=== PATIENT | female | born 1960 | race Caucasian/White ===

== ENCOUNTER 2021-01-26 07:26 | Outpatient (REF) | payer OTHER, SELFPAY ==
--- NOTE | ~2021-01-26 | XR_ITS ---
EXAMINATION: XR AP BILATERAL KNEES STANDING. LEFT KNEE 2 VIEWS CLINICAL INFORMATION: Pain left knee. COMPARISON: Left knee 09/13/2019. TECHNIQUE: AP bilateral knees standing. Left knee 2 views. FINDINGS: AP BILATERAL KNEE: There is mild reduction in the medial compartment joint space both knees. There is no visible acute fracture or dislocation or loose body seen. The soft tissues are normal. LEFT KNEE: The patellofemoral compartment joint space is reduced with periapical spurring. No abnormal suprapatellar joint effusion, loose bodies or bony erosive changes seen. XR/XR knee standing BI IMPRESSION: Mild degenerative arthritic changes medial and patellofemoral compartment left knee. No visible acute fracture, dislocation or subluxation seen.
--- NOTE | ~2021-01-26 | XR_ITS ---
EXAMINATION: XR AP BILATERAL KNEES STANDING. LEFT KNEE 2 VIEWS CLINICAL INFORMATION: Pain left knee. COMPARISON: Left knee 09/13/2019. TECHNIQUE: AP bilateral knees standing. Left knee 2 views. FINDINGS: AP BILATERAL KNEE: There is mild reduction in the medial compartment joint space both knees. There is no visible acute fracture or dislocation or loose body seen. The soft tissues are normal. LEFT KNEE: The patellofemoral compartment joint space is reduced with periapical spurring. No abnormal suprapatellar joint effusion, loose bodies or bony erosive changes seen. XR/XR knee LT 2V IMPRESSION: Mild degenerative arthritic changes medial and patellofemoral compartment left knee. No visible acute fracture, dislocation or subluxation seen.
[2021-01-26 09:47] LABS: MANUAL DIFF FLAG NO
[2021-01-26 09:53] LABS: Basophils Absolute Auto 0.1 X10*3/uL (0.0-0.2); Eosinophils Absolute Auto 0.2 X10*3/uL (0.0-0.4); Eosinophils Percent Auto 3.8 % (0-4); Hematocrit 34.8 % (37-47); Hemoglobin 11.4 g/dl (12.0-16.0); Imm Gran Abs Auto 0.01 X10*3/uL (0.00-0.03); Imm Gran Pct Auto 0.2 % (0.0-0.4); Immature Retic Fraction 8.3 % (3.0-15.9); Mean Corpuscular HGB Conc 32.8 g/dl (31.0-35.0); Mean Corpuscular Hemoglobin 33.3 pg (27.0-33.0); Mean Corpuscular Volume 101.8 fL (80-98); Mean Platelet Volume 10.4 fL (9.4-12.3); Monocytes Absolute Auto 0.4 X10*3/uL (0.1-1.2); Monocytes Percent Auto 8.9 % (2-11); Neutrophils Absolute Auto 3.3 X10*3/uL (2.0-8.3); Neutrophils Percent Auto 66.1 % (45-73); Platelet Count 274 X10*3/uL (160-400); Red Blood Count 3.42 X10*6/uL (4.20-5.50); Red Cell Distribution Width 14.4 % (11.0-16.0); Retic HGB Equivalent 37.4 pg (30.0-35.0); Reticulocyte Percent 1.9 % (0.5-1.8); Reticulocytes Absolute 0.066 X10*6/uL (0.026-0.095)
[2021-01-26 10:02] LABS: Glucose Urine UA NEG (NEG); Leukocyte Esterase Urine 2+ (NEG); Nitrite Urine NEG (NEG); PH 6.5 (5.0-8.0); Urine Blood TRACE (NEG); Urine Ketones NEG (NEG); Urine Protein NEG (NEG-TRACE)
[2021-01-26 10:10] LABS: Appearance Urine CLEAR; Color Urine STRAW
[2021-01-26 10:17] LABS: Alanine Aminotransferase 14 U/L (0-31); Albumin Level 4.1 g/dL (3.5-5.0); Alkaline Phosphatase 78 U/L (39-117); Anion Gap 13 (12-20); Aspartate Amino Transferase 15 U/L (5-31); Bilirubin Total 0.6 mg/dL (0.0-1.0); Blood Urea Nitrogen 6 mg/dL (9-16); Calcium 9.1 mg/dL (8.4-10.2); Carbon Dioxide 28 mmol/L (22-29); Chloride 103 mmol/L (96-108); Cholesterol 183 mg/dL; Estimated Glomerular Filt Rate > 60; Glucose Random 87 mg/dL (60-115); HDL Cholesterol 59 mg/dL; Iron 56 mcg/dL (30-160); LDL Cholesterol Calculated 106 mg/dl; Percent Iron Saturation 17 % (15-50); Potassium 4.8 mmol/L (3.3-5.1); Sodium 139 mmol/L (135-145); Total Iron Binding Capacity 325 mcg/dL (228-428); Total Protein 6.5 g/dL (6.5-8.0); Triglycerides 91 mg/dL; Unsaturated Iron Binding 269 ug/dL
[2021-01-26 10:21] LABS: Bacteria Urine 1+ /LPF; RBC Urine 0-2 /HPF (0); Squamous Epithelial Cell Urine 3+ /LPF; WBC Urine 30-49 /HPF (0-4)
[2021-01-26 10:37] LABS: Ferritin 38 ng/mL (10-250); Free T4 (Free Thyroxine) 1.09 ng/dL (0.71-1.85); Thyroid Stimulating Hormone 2.05 uIU/mL (0.32-4.0); Vitamin D 25-OH Total 42.3 ng/mL (>30)
[2021-01-26 10:46] LABS: Folate 17.8 ng/mL (> or = 4.0); Vitamin B12 1584 pg/mL (200-900)
== END 2021-01-26 07:27 | disposition home or self-care (01) ==
LOC: HO.HOSX 07:26
PROVIDERS: Absent Provider Internal Medicine; PCP Internal Medicine; Visit Provider Orthopaedic Surgery
DX: E78.00 Pure hypercholesterolemia, unspecified (principal); E03.9 Hypothyroidism, unspecified; M17.12 Unilateral primary osteoarthritis, left knee; Z98.890 Other specified postprocedural states; Z72.0 Tobacco use
CPT/HCPCS: 36415; 73560; 73565; 80053; 80061; 81001; 82306; 82607; 82728; 82746; 83540; 84439; 84443; 85025; 85045; 99212

== ENCOUNTER 2021-03-10 06:18 | Outpatient (REF) | payer OTHER, SELFPAY ==
--- NOTE | ~2021-03-10 | FL_ITS ---
EXAMINATION: XR FLUOROSCOPY WITH IMAGES CLINICAL INFORMATION: Left knee arthritis COMPARISON: None. TECHNIQUE: Fluoroscopy performed by Namrata Cosby NP. Fluoroscopy time: 0.1 minutes DAP: 1.2 Gycm2 Images: 1 FINDINGS: Single lateral view of the left knee demonstrates 2 needles projecting over the anterior distal femoral shaft and anterior proximal tibial shaft. FL/FL guidance in treatment room IMPRESSION: Fluoroscopy guidance for left knee injection.
== END 2021-03-10 06:19 | disposition home or self-care (01) ==
LOC: HO.RADIR 06:18
PROVIDERS: Visit Provider Anesthesiology
DX: M17.12 Unilateral primary osteoarthritis, left knee (principal)
CPT/HCPCS: 64454

== ENCOUNTER 2021-03-13 17:21 | Outpatient (REF) | payer OTHER, SELFPAY ==
[2021-03-14 11:12] LABS: BV Int Neg Control Negative (Negative); BV Int Pos Control Positive (Positive)
[2021-03-20 12:36] LABS: HPV mRNA E6/E7 rflx Not Detected (Not Detected)
== END 2021-03-13 17:22 | disposition home or self-care (01) ==
LOC: HO.LNP 17:21
PROVIDERS: Visit Provider Internal Medicine
DX: Z12.4 Encounter for screening for malignant neoplasm of cervix (principal); Z11.51 Encounter for screening for human papillomavirus (HPV)
CPT/HCPCS: 87480; 87510; 87624; 87660; 88142

== ENCOUNTER 2021-03-16 11:06 | Outpatient (REF) | payer OTHER, SELFPAY | END 2021-03-16 11:07 | disposition home or self-care (01) | LOC: HO.LAB 11:06 | PROVIDERS: Visit Provider Internal Medicine | DX: Z13.89 Encounter for screening for other disorder (principal) ==

== ENCOUNTER → 2021-03-18 11:25 | Outpatient (BNVA) | payer OTHER, SELFPAY | PROVIDERS: PCP Internal Medicine; Visit Provider Anesthesiology | DX: G90.522 Complex regional pain syndrome I of left lower limb (principal) | CPT/HCPCS: 99202 ==

== ENCOUNTER → 2021-04-01 10:53 | Outpatient (BNVA) | payer OTHER, SELFPAY | PROVIDERS: PCP Internal Medicine; Visit Provider Anesthesiology | DX: G90.522 Complex regional pain syndrome I of left lower limb (principal); Z79.899 Other long term (current) drug therapy | CPT/HCPCS: 99212 ==

== ENCOUNTER 2021-06-16 06:06 | Outpatient (REF) | payer OTHER, SELFPAY ==
--- NOTE | ~2021-06-16 | FL_ITS ---
EXAMINATION: XR FLUOROSCOPY WITH IMAGES CLINICAL INFORMATION: M96.1 - Postlaminectomy syndrome, not elsewhere classified COMPARISON: MR lumbar spine 09/01/2019 TECHNIQUE: Fluoroscopy performed by Namrata Cosby NP. Fluoroscopy time: 10.9 minutes DAP: 43.4 Gycm2 Images: 2 FINDINGS: There are 2 spinal stimulator leads seen overlying the posterior lower thoracic spinal canal. Electrode tips are approximate level of T8-T9 disc space. FL/FL guidance in treatment room IMPRESSION: Fluoroscopy for pain management procedure.
== END 2021-06-16 06:07 | disposition home or self-care (01) ==
LOC: HO.RADIR 06:06
PROVIDERS: Visit Provider Anesthesiology
DX: G90.522 Complex regional pain syndrome I of left lower limb (principal); M96.1 Postlaminectomy syndrome, not elsewhere classified
CPT/HCPCS: 63650; C1778

== ENCOUNTER → 2021-06-16 12:16 | Day surgery (SDC) | payer OTHER, SELFPAY | PROVIDERS: PCP Internal Medicine; Visit Provider Anesthesiology | DX: G90.522 Complex regional pain syndrome I of left lower limb (principal); M96.1 Postlaminectomy syndrome, not elsewhere classified; Z53.8 Procedure and treatment not carried out for other reasons | CPT/HCPCS: C1778 ==

== ENCOUNTER → 2021-06-22 15:31 | Outpatient (BNVA) | payer OTHER, SELFPAY | PROVIDERS: PCP Internal Medicine; Visit Provider Anesthesiology | DX: M96.1 Postlaminectomy syndrome, not elsewhere classified (principal) | CPT/HCPCS: 99212 ==

== ENCOUNTER 2021-06-24 13:54 | Outpatient (REF) | payer MEDICAID, SELFPAY ==
[2021-06-25 05:48] LABS: CT PCR NOT DETECTED (Not Detect.); NG PCR NOT DETECTED (Not Detect.)
== END 2021-06-24 13:55 | disposition home or self-care (01) ==
LOC: HO.LNP 13:54
PROVIDERS: Visit Provider Internal Medicine
DX: Z11.3 Encounter for screening for infections with a predominantly sexual mode of transmission (principal)
CPT/HCPCS: 87491; 87591

== ENCOUNTER 2021-07-09 12:06 | Outpatient (REF) | payer OTHER, SELFPAY ==
--- NOTE | ~2021-07-09 | XR_ITS ---
EXAMINATION: XR LUMBOSACRAL SPINE CLINICAL INFORMATION: M96.1 - Postlaminectomy syndrome, not elsewhere classified COMPARISON: Radiographs lumbar spine 03/08/2019 TECHNIQUE: Three views of the lumbosacral spine. FINDINGS: There is normal lumbar segmentation with 5 nonrib-bearing lumbar vertebrae of normal height. There are postsurgical changes consistent with posterior fusion L3-L5 with bilateral pedicle screws and shiva and disc space. L4-L5. The hardware is intact. There is no vertebral compression or destructive process or osteolysis. Borderline retrolisthesis L4-L5 is stable from preoperative radiographs 2018. There is no interval disc narrowing or erosive changes. The SI joints and visualized sacrum are unremarkable. XR/XR lumbar spine 2-3V IMPRESSION: 1. Status post posterior fusion L3-L5. Hardware intact. 2. No vertebral compression, destructive process, or interval disc narrowing.
== END 2021-07-09 12:07 | disposition home or self-care (01) ==
LOC: HO.XRAY 12:06
PROVIDERS: PCP Internal Medicine; Visit Provider Anesthesiology
DX: M96.1 Postlaminectomy syndrome, not elsewhere classified (principal)
CPT/HCPCS: 72100

== ENCOUNTER → 2021-07-22 13:39 | Outpatient (BNVA) | payer OTHER, SELFPAY | PROVIDERS: PCP Internal Medicine; Visit Provider Anesthesiology ==

== ENCOUNTER → 2021-08-28 13:35 | Outpatient (BNVA) | payer OTHER, SELFPAY | PROVIDERS: Visit Provider Internal Medicine | DX: G89.4 Chronic pain syndrome (principal); M25.562 Pain in left knee; M17.12 Unilateral primary osteoarthritis, left knee; M96.1 Postlaminectomy syndrome, not elsewhere classified; E03.9 Hypothyroidism, unspecified; F11.99 Opioid use, unspecified with unspecified opioid-induced disorder; F13.20 Sedative, hypnotic or anxiolytic dependence, uncomplicated; Z72.89 Other problems related to lifestyle; F12.20 Cannabis dependence, uncomplicated; F17.210 Nicotine dependence, cigarettes, uncomplicated; Z51.81 Encounter for therapeutic drug level monitoring | CPT/HCPCS: 80305; 99202 ==

== ENCOUNTER → 2021-09-03 14:40 | Outpatient (BNVA) | payer OTHER, SELFPAY | PROVIDERS: PCP Internal Medicine; Visit Provider Family Medicine Adult Medicine | DX: M96.1 Postlaminectomy syndrome, not elsewhere classified (principal); R20.2 Paresthesia of skin; G89.4 Chronic pain syndrome | CPT/HCPCS: 99202 ==

== ENCOUNTER → 2021-09-10 13:29 | Outpatient (BNVA) | payer OTHER, SELFPAY | PROVIDERS: PCP Internal Medicine; Visit Provider Family Medicine Adult Medicine | DX: M96.1 Postlaminectomy syndrome, not elsewhere classified (principal); G89.4 Chronic pain syndrome; R20.2 Paresthesia of skin | CPT/HCPCS: 99212 ==

== ENCOUNTER 2021-10-06 06:32 | Outpatient (REF) | payer OTHER, SELFPAY ==
--- NOTE | ~2021-10-06 | FL_ITS ---
EXAMINATION: XR FLUOROSCOPY WITH IMAGES CLINICAL INFORMATION: M96.1 - Postlaminectomy syndrome, not elsewhere classified COMPARISON: Radiographs lumbar spine 07/09/2021 TECHNIQUE: Fluoroscopy performed by pain management physician. Fluoroscopy time: 0.1 minutes DAP: 1.85 Gycm2 Images: 2 FINDINGS: There is spinal needle at the L2 interlaminar space. Hardware is again noted lower lumbar spine consistent with the prior fusion. FL/FL guidance in treatment room IMPRESSION: Fluoroscopy for pain management procedure.
== END 2021-10-06 06:33 | disposition home or self-care (01) ==
LOC: HO.RADIR 06:32
PROVIDERS: Visit Provider Anesthesiology
DX: M96.1 Postlaminectomy syndrome, not elsewhere classified (principal); G90.522 Complex regional pain syndrome I of left lower limb
CPT/HCPCS: 62323; J1170; Q9967

== ENCOUNTER → 2021-10-07 16:25 | Outpatient (BNVA) | payer OTHER, SELFPAY | PROVIDERS: Visit Provider Anesthesiology ==

== ENCOUNTER → 2021-10-12 15:53 | Outpatient (BNVA) | payer OTHER, SELFPAY | PROVIDERS: PCP Internal Medicine; Visit Provider Anesthesiology | DX: M96.1 Postlaminectomy syndrome, not elsewhere classified (principal); G90.522 Complex regional pain syndrome I of left lower limb | CPT/HCPCS: 99212 ==

== ENCOUNTER → 2021-12-24 09:54 | Day surgery (SDC) | payer MEDICAID, SELFPAY ==
[2021-12-15 13:32] VITALS: BMI 27.6
--- NOTE | 2021-12-23 10:17 | P.CONAN_ITS ---
Documented by User: Bibi Cary NP 12/23/21 10:27 HPI - Anesthesia Eval Consult details Narrative: 61yo F for Intrathecal Drug Delivery Implant PMFSH Active Problems Active Problems: All Active Problems (Updated 12/11/21 @ 15:26 by Hayden Man MD) Anemia (Acute) Peripheral neuropathy (Acute) Cervical cancer screening (Acute) Bacterial vaginosis (Acute) Generalized anxiety disorder (Acute) Breast cancer screening by mammogram (Acute) Left leg paresthesias (Acute) Opioid use disorder (Acute) Chronic pain syndrome (Acute) Postlaminectomy syndrome (Acute) Complex regional pain syndrome i of left lower limb (Acute) Renal lesion (Acute) Primary osteoarthritis of left knee (Acute) Tobacco abuse (Acute) H/O lumbar discectomy (Acute) Anxiety (Acute) Hypothyroidism (Acute) Past Medical History Medical History Anxiety Cervical disc herniation Chronic pain syndrome Closed left ankle fracture Complex regional pain syndrome i of left lower limb Hypothyroidism Left leg paresthesias Opioid use disorder Postlaminectomy syndrome Primary osteoarthritis of left knee Renal lesion Tobacco abuse Family History Family History Father No problems noted. Mother Stroke Paternal Aunt Breast cancer Surgical History Surgical History H/O colonoscopy H/O lumbar discectomy History of left knee surgery Hx of cervical discectomy Left ACL tear Spinal stenosis Social History Social History Housing: House Are you a primary primary care coordinator to a significant other at home: No Do you presently have visiting nurse or other home services: No Alcohol intake: current Alcohol intake frequency: holidays/special occasions only Alcohol type: wine Patient Tobacco Use Status: Current everyday Tobacco user Tobacco use type: Cigarette Cigarettes Per Day: 7 Years Smoked: 30 e-Cigarette/Vaping Use: Never Used Second Hand Smoke Exposure: Yes Use of substances other than those prescribed or required for medical reasons: No Have you been hit, kicked, punched, or otherwise hurt by someone within the past year? If so, by whom?: No Are you DNR?: No Advance Directives Information Provided: Yes (brochure mailed) Advance Directives on File: No Recently lost weight without trying: No Eating poorly because of decreased appetite: No Nutrition Risks: No Nutritional Risk Poor oral hygiene: No service: No Current occupational status: unemployed Meds Allergies Allergy/AdvReac Type Severity Reaction Status Date / Time No Known Allergies Allergy Verified 12/11/21 14:37 [No Known Allergies*] Home Medications Medication Instructions Recorded Confirmed Last Taken Type ferrous sulfate 325 mg (65 mg 325 mg PO DAILY 12/30/20 12/15/21 Unknown History iron) tablet (FeroSul) magnesium oxide 400 mg PO DAILY 12/30/20 12/15/21 Unknown History multivitamin 1 tab PO DAILY 12/11/21 12/15/21 Unknown History Exam Exam Date and Time: December 23, 2021 1017 Height,Weight and Vital Signs: Height 5 ft 4 in Weight 73.028 kg Assessment and Plan Assessment Anesthesia Assessment: Chart Reviewed Documented by User: Ameena Potter MD 12/24/21 10:58 PMFSH Past Medical History Medical History Anxiety Cervical disc herniation Chronic pain syndrome Closed left ankle fracture Complex regional pain syndrome i of left lower limb Hypothyroidism Left leg paresthesias Opioid use disorder Postlaminectomy syndrome Primary osteoarthritis of left knee Renal lesion Tobacco abuse Family History Family History Father No problems noted. Mother Stroke Paternal Aunt Breast cancer Surgical History Surgical History H/O colonoscopy H/O lumbar discectomy History of left knee surgery Hx of cervical discectomy Left ACL tear Spinal stenosis History of Problems with Anesthesia: No Social History Social History Housing: House Are you a primary primary care coordinator to a significant other at home: No Do you presently have visiting nurse or other home services: No Alcohol intake: current Alcohol intake frequency: holidays/special occasions only Alcohol type: wine Patient Tobacco Use Status: Current everyday Tobacco user Tobacco use type: Cigarette Cigarettes Per Day: 7 Years Smoked: 30 e-Cigarette/Vaping Use: Never Used Second Hand Smoke Exposure: Yes Use of substances other than those prescribed or required for medical reasons: No Have you been hit, kicked, punched, or otherwise hurt by someone within the past year? If so, by whom?: No Are you DNR?: No Advance Directives Information Provided: Yes (brochure mailed) Advance Directives on File: No Recently lost weight without trying: No Eating poorly because of decreased appetite: No Nutrition Risks: No Nutritional Risk Poor oral hygiene: No service: No Current occupational status: unemployed Meds Allergies Allergy/AdvReac Type Severity Reaction Status Date / Time No Known Allergies Allergy Verified 12/11/21 14:37 [No Known Allergies*] Home Medications Medication Instructions Recorded Confirmed Last Taken Type ferrous sulfate 325 mg (65 mg 325 mg PO DAILY 12/30/20 12/15/21 Unknown History iron) tablet (FeroSul) magnesium oxide 400 mg PO DAILY 12/30/20 12/15/21 Unknown History multivitamin 1 tab PO DAILY 12/11/21 12/15/21 Unknown History Exam Airway Mallampati Class: II TM Dist: >3cm Neck ROM: Full Loose/Missing/Broken Teeth: No Heart: RRR Lungs: CTA Assessment and Plan Assessment Anesthesia Assessment: Anesthesia Plan Discussed Final Anesthetic Review History of Problems with Anesthesia: No NPO: Yes ASA Class: II Final Preanesthetic Review: Meds/Allgs Chart Reviewed, Consent Obtained/Reviewed and Anes Risks/Benef Reviewed Patient Risk: Low Procedure Risk: Low Anesthetic Plan Anesthetic Plan: GA Disposition: Standard PACU
[2021-12-24 09:53] LABS: MANUAL DIFF FLAG NO
[2021-12-24 10:21] VITALS: BP 101/61; PULSE 71; RESP 16; TEMP 36.2; O2SAT 98
[2021-12-24] MEDS: Lactated Ringers 1,000 ML 100 ML IVCONT (10:40)
[2021-12-24 10:48] LABS: Basophils Absolute Auto 0.1 X10*3/uL (0.0-0.2); Basophils Percent Auto 0.9 % (0-2); Eosinophils Absolute Auto 0.2 X10*3/uL (0.0-0.4); Eosinophils Percent Auto 3.1 % (0-4); Hematocrit 38.9 % (37.0-47.0); Hemoglobin 12.7 g/dl (12.0-16.0); Imm Gran Abs Auto 0.01 X10*3/uL (0.00-0.03); Imm Gran Pct Auto 0.2 % (0.0-0.4); Immature Retic Fraction 4.3 % (3.0-15.9); Lymphocytes Absolute Auto 1.1 X10*3/uL (1.2-4.9); Lymphocytes Percent Auto 20.1 % (20-40); Mean Corpuscular HGB Conc 32.6 g/dl (31.0-35.0); Mean Corpuscular Volume 104.3 fL (80.0-98.0); Monocytes Absolute Auto 0.4 X10*3/uL (0.1-1.2); Monocytes Percent Auto 6.8 % (2-11); Neutrophils Absolute Auto 3.8 x10*3/uL (2.0-8.3); Neutrophils Percent Auto 68.9 % (45-73); Platelet Count 278 X10*3/uL (160-400); Red Blood Count 3.73 X10*6/uL (4.20-5.50); Red Cell Distribution Width 14.6 % (11.0-16.0); Retic HGB Equivalent 35.7 pg (30.0-35.0); Reticulocyte Percent 1.4 % (0.5-1.8); Reticulocytes Absolute 0.054 X10*6/uL (0.026-0.095); White Blood Count 5.5 X10*3/uL (4.8-10.8)
--- NOTE | 2021-12-24 11:12 | P.HPSUR_ITS ---
Pre-Procedural Eval Section A Date of Service: 12/24/21 Section B Chief Complaint: complex regional pain syndrome lower limb,labs Details of Present Illness: as above Relevant Family History (Specify if Yes): No Relevant Social History: None Present Medications: see Short Stay Collaborative assessment Medical History: No relevant PMH Allergies: Allergies Allergy/AdvReac Type Severity Reaction Status Date / Time No Known Allergies Allergy Verified 12/11/21 14:37 [No Known Allergies*] Review of Systems Sugical H&P ROS: Negative: Constitution, Cardiovascular, Respiratory, Neurological, Psychiatric, Hem-Onc, Allergic/Immunologic, Gastrointestinal, G enitourinary, Musculoskeletal, Integumentary, Endocrine and Eyes/Ears/Nose/Throat Exam Surgical H&P Exam: Normal: HEENT, Normal: Heart, Normal: Lungs, Normal: Extremities, Normal: Abdomen, Normal: Skin and Normal: Neurological Plan Diagnosis/Plan: Unchanged I have reviewed the history and physical and performed a pertinent physical examination on my patient. No changes have occurred unless specified.
[2021-12-24 11:38] LABS: Alanine Aminotransferase 17 U/L (0-31); Albumin Level 4.2 g/dL (3.5-5.0); Alkaline Phosphatase 81 U/L (39-117); Anion Gap 12 (12-20); Aspartate Amino Transferase 16 U/L (5-31); Bilirubin Total 0.6 mg/dL (0.0-1.0); Blood Urea Nitrogen 10 mg/dL (9-16); Calcium 9.4 mg/dL (8.4-10.2); Carbon Dioxide 29 mmol/L (22-29); Chloride 105 mmol/L (96-108); Cholesterol 185 mg/dL; Creatinine Clr Calc Pharmacy 72.3; Estimated Glomerular Filt Rate > 60; Glucose Random 86 mg/dL (60-115); HDL Cholesterol 64 mg/dL; Iron 58 mcg/dL (30-160); LDL Cholesterol Calculated 109 mg/dl; Sodium 141 mmol/L (135-145); Total Protein 6.7 g/dL (6.5-8.0); Triglycerides 62 mg/dL
[2021-12-24 11:50] LABS: Percent Iron Saturation 16 % (15-50); Total Iron Binding Capacity 354 mcg/dL (228-428); Unsaturated Iron Binding 296 ug/dL
[2021-12-24 11:53] LABS: Ferritin 35 ng/mL (10-250); Free T4 (Free Thyroxine) 1.04 ng/dL (0.71-1.85); Thyroid Stimulating Hormone 2.64 uIU/mL (0.32-4.0)
--- NOTE | 2021-12-24 12:09 | PC.NURSE ---
patient was cancelled due to rep not arriving. to be rescheduled.
[2021-12-24 12:14] LABS: Folate 18.5 ng/mL (> or = 4.0); Vitamin B12 1366 pg/mL (200-900)
== END ==
PROVIDERS: Absent Provider Internal Medicine; PCP Internal Medicine; Visit Provider Anesthesiology
DX: G90.522 Complex regional pain syndrome I of left lower limb (principal); Z53.8 Procedure and treatment not carried out for other reasons; D64.9 Anemia, unspecified
CPT/HCPCS: 36415; 80053; 80061; 82607; 82728; 82746; 83540; 84439; 84443; 85025; 85045; J0690; J1100; J2250; J2405; J3010; J3370; Q9967

== ENCOUNTER 2021-12-25 10:25 | Day surgery (SDC) | payer MEDICAID, SELFPAY ==
[2021-12-25] VITALS (8 sets, daily range): BP systolic 106–129; BP diastolic 56–87; PULSE 68–84; RESP 16–20; TEMP 36.1–36.6; O2SAT 95–100; BMI 26.6
--- NOTE | ~2021-12-25 | FL_ITS ---
EXAMINATION: XR FLUOROSCOPY WITH IMAGES CLINICAL INFORMATION: Intrathecal drug implant. COMPARISON: None. TECHNIQUE: Fluoroscopy performed by Dr. Mayco Sosa. Fluoroscopy time: 0.5 minutes DAP: 2.05 mGycm2 Images: 2 FINDINGS: AP and lateral views of dorsal lumbar spine reveals there is intrathecal solitary catheter positioned at T9 vertebra. Visualized bones and the disc levels unremarkable. FL/FL guidance in OR IMPRESSION: Fluoroscopy was provided to referring physician for intrathecal catheter placement for drug administration.
[2021-12-25] MEDS: Lactated Ringers 1,000 ML 100 ML IVCONT (11:00)
--- NOTE | 2021-12-25 11:11 | HO.ANESPROP2 ---
HPI - Anesthesia Eval Consult details Narrative: 61 yo female patient for intrathecal drug delivery implant. Here and seen yesterday for same but rescheduled as rep not available. PMF Active Problems Active Problems: All Active Problems (Updated 12/11/21 @ 15:26 by Hayden Man MD) Anemia (Acute) Peripheral neuropathy (Acute) Cervical cancer screening (Acute) Bacterial vaginosis (Acute) Generalized anxiety disorder (Acute) Breast cancer screening by mammogram (Acute) Left leg paresthesias (Acute) Opioid use disorder (Acute) Chronic pain syndrome (Acute) Postlaminectomy syndrome (Acute) Complex regional pain syndrome i of left lower limb (Acute) Renal lesion (Acute) Primary osteoarthritis of left knee (Acute) Tobacco abuse (Acute) H/O lumbar discectomy (Acute) Anxiety (Acute) Hypothyroidism (Acute) Past Medical History Medical History Anxiety Cervical disc herniation Chronic pain syndrome Closed left ankle fracture Complex regional pain syndrome i of left lower limb Hypothyroidism Left leg paresthesias Opioid use disorder Postlaminectomy syndrome Primary osteoarthritis of left knee Renal lesion Tobacco abuse Family History Family History Father No problems noted. Mother Stroke Paternal Aunt Breast cancer Family history of problems with anesthesia: No Surgical History Surgical History H/O colonoscopy H/O lumbar discectomy History of left knee surgery Hx of cervical discectomy Left ACL tear Spinal stenosis History of Problems with Anesthesia: No Social History Social History (Updated 12/25/21 @ 11:16 by Jessie Mcnally MD) Housing: House Are you a primary healthcare insurance sales agent to a significant other at home: No Do you presently have visiting nurse or other home services: No Alcohol intake: current Alcohol intake frequency: a few times a week Alcohol type: wine Patient Tobacco Use Status: Current everyday Tobacco user Tobacco use type: Cigarette Cigarettes Per Day: 7 Years Smoked: 30 Smoked in Last 30 Days: Yes e-Cigarette/Vaping Use: Never Used Second Hand Smoke Exposure: Yes Use of substances other than those prescribed or required for medical reasons: No Are you DNR?: No Advance Directives: No Advance Directives Information Provided: Yes Recently lost weight without trying: No service: No Current occupational status: unemployed Meds Allergies Allergy/AdvReac Type Severity Reaction Status Date / Time No Known Allergies Allergy Verified 12/11/21 14:37 [No Known Allergies*] Home Medications Medication Instructions Recorded Confirmed Last Taken Type ferrous sulfate 325 mg (65 mg 325 mg PO DAILY 12/30/20 12/15/21 Unknown History iron) tablet (FeroSul) magnesium oxide 400 mg PO DAILY 12/30/20 12/15/21 Unknown History multivitamin 1 tab PO DAILY 12/11/21 12/15/21 Unknown History Exam Exam Date and Time: December 25, 2021 1111 Height,Weight and Vital Signs: Height 5 ft 4 in Weight 70.307 kg Last Vital Signs Temp 97.9 F 12/25/21 10:30 Pulse 84 12/25/21 10:30 BP 106/56 L 12/25/21 10:30 Pulse Ox 98 12/25/21 10:30 Airway Mallampati Class: II TM Dist: >3cm Neck ROM: Full Loose/Missing/Broken Teeth: No Heart: RRR Lungs: CTAB Assessment and Plan Assessment Anesthesia Assessment: Anesthesia Plan Discussed and Chart Reviewed Final Anesthetic Review Family History of Problems with Anesthesia: No History of Problems with Anesthesia: No NPO: Yes ASA Class: II Final Preanesthetic Review: No Changes in Pt Med Stat, Meds/Allgs Chart Reviewed, Consent Obtained/Reviewed and Anes Risks/Benef Reviewed Patient Risk: Low Procedure Risk: Low Assessment/Block/Sedation in SS: Assess/Block/Sedation-SS Anesthetic Plan Anesthetic Plan: GA Disposition: Standard PACU
--- NOTE | 2021-12-25 11:27 | MHC.SHP ---
Pre-Procedural Eval Section A Date of Service: 12/25/21 Section B Chief Complaint: Complex regional pain syndrome Details of Present Illness: As above Relevant Family History (Specify if Yes): No Relevant Social History: None Present Medications: None Medical History: No relevant PMH History of Previous Operations: Relevant previous surgery/procedure and date(s) Allergies: Allergies Allergy/AdvReac Type Severity Reaction Status Date / Time No Known Allergies Allergy Verified 12/11/21 14:37 [No Known Allergies*] Review of Systems Sugical H&P ROS: Negative: Constitution, Cardiovascular, Respiratory, Neurological, Psychiatric, Hem-Onc, Allergic/Immunologic, Gastrointestinal, Genitourinary, Musculoskeletal, Integumentary, Endocrine and Eyes/Ears/Nose/Throat Exam Surgical H&P Exam: Normal: HEENT, Normal: Heart, Normal: Lungs, Normal: Extremities, Normal: Abdomen, Normal: Skin and Normal: Neurological Plan Diagnosis/Plan: Unchanged I have reviewed the history and physical and performed a pertinent physical examination on my patient. No changes have occurred unless specified.
--- NOTE | 2021-12-25 11:27 | W.PM.OPN ---
Operative Note Operative Note Date of Service: 12/25/21 Narrative: After obtaining informed consent and explaining to the patient risks, benefits and alternatives to treat his pain, the patient was brought up to the operating room where she was positioned supine on the stretcher.? [place] [employer] monitors were applied and general anesthesia was induced with endotracheal intubation.? After that the patient was transferred to the operating table in the prone position.? All pressure points protected.? The patient received antibiotic cefazolin 2 g intravenously 30 minutes before incision. Time-out was performed delineating correct site and side of the procedure, name and date of of the patient, risk of fire, need for antibiotic prophylaxis risk of DVT and need for DVT prophylaxis. ? After that the patient entire back? and upper buttocks were prepped with Chloraprep and draped with full body drape including ioban film. Sterilely drape C-arm was brought over the OR field and square pictures of the L1, L2, L3 vertebrae were demonstrated on the screen. the entrance point? for the catheter was chosen as the L1-L2 interspace. In the strict midline fashion 8 cm vertical skin incision was made with #10 scalpel alongside the prevoius laminectomy incision 4 mm away to the right from the previous scar. The incision was widened with the Weitlaner retractor and deepened with electrocautery. Thorough hemostasis was obtained using electrocautery. The prevertebral fascia was freed from overlaying tissues. After that 100 mm introducer spinal 16 g needle was inserted under x-ray guidance in the projection of the right L2 lamina on AP view. The needle advanced under the x-ray guidance with intemittent A-P? and lateral pictures toward the spinal canal. When on the lateral view the needle entered the spinal canal the stylet was removed and the clear flow of the CSF was obtain through the needle hub. Intrathecal Ascenda catheter was inserted through the needle and advanced under the x-ray guidance toward the T9 mid body vertebral body projection. The stylet was removed from the catheter and the flow of CSF fluid straw colored and clear was observed coming from the catheter.? Purse-string suture was applied surrounding? the a needle and it was tied.? After that the needle was withdrawn with care taken to keep the catheter in place.? Anchoring device was dislodged on the catheter and advanced until it met prevertebral fascia.? It was engaged on the body of the catheter.? Two anchoring Tycron 1-0 sutures were used to suture left wing of the anchor to prevertebral fascia and 1 anchoring suture was used to stitch in the right wing of anchoring device to prevertebral fascia. ?After that the thorough irrigation of the wound was performed and wound was packed with vancomycin soaked 4 x 4. Attention then was concentrated on the patient's right upper buttock.Sterilely draped C-arm was brought over the operative field again and position of the patient's left iliac crest was demonstrated on the screen.? 3 cm below the projection of the? right iliac crest? to the skin of the local anesthetic lidocaine plus bupivacaine 1-1 was injected in the linear horizontal fashion.? After that 9 cm incision was performed in patient's? right upper buttock alongside the injected line. ? Thorough hemostasis was obtained using cautery device.? After that the wound was widened and made 2.5 cm deep .? The wound was extended medially and laterally as well as caudally and cranially to form the space to accommodate the body of the pump.? Thorough hemostasis was performed.? The wound was irrigated with vancomycin containing normal saline and then tunneling device was used to connect both wounds and dislodged the intrathecal catheter into the side wound.? The catheter was trimmed appropriately after that and sutureless connection device was mounted on the catheter.? After that sutureless connection device was connected to the pump.? Aspiration of the side port of the pump revealed clear flow of CSF.? Two anchoring 1-0 Tycron sutures were applied in most SUPERIOR MEDIAL AND SUPERIOR LATERAL CORNERS OF THE WOUND as well as most inferior lateral corner of the wound.? After that the sutures were connected to the brackets on the body of the pump, intrathecal catheter was gathered behind the body of the pump and pump was dislodged into the wound.? After that the anchoring sutures were tied.? After that noncoring needle was used again to reach side port of the pump in clear flow of CSF 0.5 mL was demonstrated in the syringe connected to the noncoring needle. ? Thorough irrigation was performed again in both wounds.? Thorough hemostasis was verified.? 0 polisorb sutures were used to close both wounds, 2-0 suture of the same nature were used to approximate the skin.? [place] were applied to the skin line and Bacitracin ointment was applied to the staple lines.? Sterile dressing with sterile 4x4s was performed, abdominal binder was applied.? Upon completion of the procedure patient was awaken extubated and taken outside of the operating room to recovery room where SHE recovered uneventfully.? SHE went home without immediate complications.
--- NOTE | 2021-12-25 15:05 | PM.OP ---
Brief Operative Note Date of Service: 12/25/21 Pre-op diagnosis: CRPS lower extremity. postlaminectomy syndrome, chronic pain syndrome Post-op diagnosis: same Procedure: implantation of the intrathecal drug delivery system synchromed II pimp and ascenda intrathecal catheter Implants: synchromed II and ascenda catheter Surgeon: Mayco Sosa MD Anesthesia: GETA Was an [employer] used for this Procedure?: No Estimated blood loss (mL): 15 Pathology: none sent Condition: stable Disposition: PACU
[2021-12-25] MEDS: Acetaminophen 325 MG TABLET 650 MG PO (15:56)
[2021-12-25] MEDS: oxyCODONE HCl Immed Release 5 MG TABLET PO (15:57)
== END 2021-12-25 16:15 ==
LOC: HO.SSS 10:25
PROVIDERS: PCP Internal Medicine; Visit Provider Anesthesiology
PROC: (CPT 62350; principal; 2021-12-25 12:00)
DX: G90.522 Complex regional pain syndrome I of left lower limb (principal); M96.1 Postlaminectomy syndrome, not elsewhere classified; G89.4 Chronic pain syndrome; M17.12 Unilateral primary osteoarthritis, left knee; Z98.1 Arthrodesis status; M50.20 Other cervical disc displacement, unspecified cervical region; F41.1 Generalized anxiety disorder; F17.210 Nicotine dependence, cigarettes, uncomplicated
CPT/HCPCS: 62350; 62362; C1755; C1772; J0330; J0690; J1100; J2250; J2405; J3010; J3370

== ENCOUNTER → 2021-12-30 11:22 | Outpatient (BNVA) | payer MEDICAID, SELFPAY | PROVIDERS: PCP Internal Medicine; Visit Provider Anesthesiology | DX: M96.1 Postlaminectomy syndrome, not elsewhere classified (principal); G90.522 Complex regional pain syndrome I of left lower limb; M17.12 Unilateral primary osteoarthritis, left knee; E03.9 Hypothyroidism, unspecified; Z72.0 Tobacco use; Z79.891 Long term (current) use of opiate analgesic | CPT/HCPCS: 99212 ==

== ENCOUNTER → 2022-01-06 11:39 | Outpatient (BNVA) | payer OTHER, MEDICAID, SELFPAY | PROVIDERS: PCP Internal Medicine; Visit Provider Anesthesiology | DX: M96.1 Postlaminectomy syndrome, not elsewhere classified (principal); G90.522 Complex regional pain syndrome I of left lower limb | CPT/HCPCS: 99212 ==

== ENCOUNTER → 2022-01-08 16:40 | Outpatient (BNVA) | payer OTHER, MEDICAID, SELFPAY | PROVIDERS: PCP Internal Medicine; Visit Provider Nurse Practitioner Family ==

== ENCOUNTER → 2022-01-13 09:41 | Outpatient (BNVA) | payer OTHER, MEDICAID, SELFPAY | PROVIDERS: PCP Internal Medicine; Visit Provider Anesthesiology | DX: M96.1 Postlaminectomy syndrome, not elsewhere classified (principal); G90.522 Complex regional pain syndrome I of left lower limb | CPT/HCPCS: 99212 ==

== ENCOUNTER 2022-01-14 09:25 | Outpatient (REF) | payer MEDICAID, SELFPAY ==
--- NOTE | ~2022-01-14 | MM_ITS ---
EXAMINATION: MM SCREENING DIGITAL BREAST TOMOSYNTHESIS, BILATERAL CLINICAL INFORMATION: Screening. Asymptomatic. The lifetime risk of breast cancer based on the Tyrer-Cuzick Model is 6%. COMPARISON: Mammography: 07/30/2020, 06/05/2019, 05/24/2018, 05/18/2017 TECHNIQUE: Digital breast tomosynthesis is performed in both the craniocaudal and mediolateral oblique views along with computer-aided detection (CAD). Synthesized 2D images are generated from the tomosynthesis. FINDINGS: There are scattered areas of fibroglandular density (ACR BI-RADS breast composition Category b). There are no significant masses, abnormal calcifications, or other abnormalities. Parenchymal pattern is similar to prior studies. There is no developing density or architectural abnormality. The axilla and skin contours are unremarkable. No significant changes. MM/MM tomosynthesis screening BI IMPRESSION: No mammographic evidence of malignancy. ASSESSMENT: BI-RADS 1: Negative RECOMMENDATION: Routine annual mammography screening. This patient's information was entered into a reminder system with a target due date for their next mammogram.
== END 2022-01-14 09:26 | disposition home or self-care (01) ==
LOC: HO.MAMMO 09:25
PROVIDERS: PCP Internal Medicine; Visit Provider Internal Medicine
DX: Z12.31 Encounter for screening mammogram for malignant neoplasm of breast (principal)
CPT/HCPCS: 77063; 77067

== ENCOUNTER 2022-01-19 06:13 | Outpatient (REF) | payer OTHER, MEDICAID, SELFPAY | END 2022-01-19 06:14 | disposition home or self-care (01) | LOC: HO.RADIR 06:13 | PROVIDERS: Visit Provider Anesthesiology | DX: M96.1 Postlaminectomy syndrome, not elsewhere classified (principal); G90.522 Complex regional pain syndrome I of left lower limb | CPT/HCPCS: 62370 ==

== ENCOUNTER → 2022-01-25 13:55 | Outpatient (BNVA) | payer OTHER, MEDICAID, SELFPAY | PROVIDERS: PCP Internal Medicine; Visit Provider Anesthesiology | DX: G90.522 Complex regional pain syndrome I of left lower limb (principal); M96.1 Postlaminectomy syndrome, not elsewhere classified | CPT/HCPCS: 99212 ==

== ENCOUNTER → 2022-02-01 15:47 | Outpatient (BNVA) | payer OTHER, MEDICAID, SELFPAY | PROVIDERS: PCP Internal Medicine; Visit Provider Anesthesiology | DX: M96.1 Postlaminectomy syndrome, not elsewhere classified (principal); G90.522 Complex regional pain syndrome I of left lower limb | CPT/HCPCS: 99212 ==

== ENCOUNTER 2022-02-09 06:08 | Outpatient (REF) | payer OTHER, MEDICAID, SELFPAY | END 2022-02-09 06:09 | disposition home or self-care (01) | LOC: HO.RADIR 06:08 | PROVIDERS: Visit Provider Anesthesiology | DX: M96.1 Postlaminectomy syndrome, not elsewhere classified (principal); G90.522 Complex regional pain syndrome I of left lower limb | CPT/HCPCS: 62370 ==

== ENCOUNTER 2022-03-25 09:12 | Outpatient (REF) | payer MEDICAID, SELFPAY ==
--- NOTE | 2022-03-25 09:15 | EMG_ITS ---
Bilateral median and ulnar motor and sensory studies were performed. Bilateral radial and sensory studies were performed and paraspinal muscles were tested with a needle. IMPRESSION: 1. [id number] bilateral median neuropathy across carpal tunnel. 2. Chronic bilateral lower cervical radiculopathy. MD DEDE Lim/MARGIE / [id number]
== END 2022-03-25 09:13 | disposition home or self-care (01) ==
LOC: HO.NEURO 09:12
PROVIDERS: PCP Internal Medicine; Visit Provider Internal Medicine
DX: R20.0 Anesthesia of skin (principal)
CPT/HCPCS: 95886; 95911

== ENCOUNTER 2022-04-07 09:44 | Outpatient (REF) | payer MEDICAID, OTHER, SELFPAY ==
--- NOTE | ~2022-04-07 | MR_ITS ---
EXAMINATION: MR CERVICAL SPINE WITHOUT CONTRAST CLINICAL INFORMATION: Cervical radiculopathy. COMPARISON: Cervical spine radiographs 03/08/2019. TECHNIQUE: MRI of the cervical spine was obtained using routine sequences without contrast. FINDINGS: There are chronic postoperative changes of an anterior cervical discectomy and fusion at C5-C6. Bridging bone completely fuses the C5 and C6 vertebra. Alignment is normal. Vertebral heights are preserved. No acute bone marrow signal changes. There is slight loss of intervertebral disc height and T2 signal intensity at multiple levels related to disc degeneration. There is a short segment of chronic myelomalacia involving the cervical cord at level of C5-C6 and questionable signal changes within the cervical cord at C4-C5. The cervicomedullary junction is normal. Limited visualization of the posterior fossa reveals no abnormal finding. Occipital condyles and lateral C1 masses are intact. Atlantodental joint is normal. C1-C2 articular facets are unremarkable. At C2-C3 the annular contour is normal. No canal or neuroforaminal compromise. At C3-C4 the annular contour is normal. No canal stenosis. Asymmetric uncovertebral joint spurring and facet degenerative change causes moderate left neuroforaminal encroachment. At C4-C5 there is a diffusely bulging disc and buckling of ligamenta flava causing moderate to severe canal stenosis. Uncovertebral joint spurring and facet degenerative change causes severe left and moderate right neuroforaminal encroachment. At C5-C6 there is no canal or neuroforaminal compromise. At C6-C7 there is a bulging disc and buckling of the ligamenta flava causing moderate canal stenosis. Uncovertebral joint spurring and facet degenerative change causes moderate bilateral neuroforaminal encroachment. At C7-T1 the annular contour is normal. No canal or neuroforaminal compromise. Visualized soft tissues of the neck are normal. Vascular flow voids are maintained. MR/MR cervical spine wo con IMPRESSION: There are chronic postoperative changes of an anterior cervical discectomy and fusion at C5-C6 and there is a chronic short segment of myelomalacia at this level. 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 There is moderate to severe canal stenosis at C4-C5 with questionable intramedullary edema/myelomalacia within the cervical cord at this level. Moderate canal stenosis at C6-C7. Uncovertebral joint spurring and facet degenerative change causes moderate to severe neuroforaminal encroachment at C4-C5 and C6-C7 as described above.
== END 2022-04-07 09:45 | disposition home or self-care (01) ==
LOC: HO.MRI 09:44
PROVIDERS: Visit Provider Internal Medicine
DX: M54.12 Radiculopathy, cervical region (principal); G89.29 Other chronic pain
CPT/HCPCS: 72141

== ENCOUNTER → 2022-04-26 11:04 | Outpatient (BNVA) | payer OTHER, MEDICAID, SELFPAY | PROVIDERS: PCP Internal Medicine; Visit Provider Anesthesiology | DX: M96.1 Postlaminectomy syndrome, not elsewhere classified (principal); G90.522 Complex regional pain syndrome I of left lower limb | CPT/HCPCS: 62370; 99212 ==

== ENCOUNTER → 2022-06-16 13:30 | Outpatient (BNVA) | payer OTHER, MEDICAID, SELFPAY | PROVIDERS: PCP Internal Medicine; Visit Provider Anesthesiology | DX: M96.1 Postlaminectomy syndrome, not elsewhere classified (principal); G90.522 Complex regional pain syndrome I of left lower limb | CPT/HCPCS: 62370; 99212 ==

== ENCOUNTER → 2022-08-04 09:43 | Outpatient (BNVA) | payer OTHER, MEDICAID, SELFPAY | PROVIDERS: PCP Internal Medicine; Visit Provider Anesthesiology | DX: M96.1 Postlaminectomy syndrome, not elsewhere classified (principal); G90.522 Complex regional pain syndrome I of left lower limb | CPT/HCPCS: 62370; 99212 ==

== ENCOUNTER → 2022-09-29 09:58 | Outpatient (BNVA) | payer OTHER, MEDICAID, SELFPAY | PROVIDERS: PCP Internal Medicine; Visit Provider Anesthesiology | DX: M96.1 Postlaminectomy syndrome, not elsewhere classified (principal); G90.522 Complex regional pain syndrome I of left lower limb | CPT/HCPCS: 99212 ==

== ENCOUNTER → 2022-11-24 09:55 | Outpatient (BNVA) | payer OTHER, SELFPAY | PROVIDERS: PCP Internal Medicine; Visit Provider Anesthesiology | DX: M96.1 Postlaminectomy syndrome, not elsewhere classified (principal); G90.522 Complex regional pain syndrome I of left lower limb | CPT/HCPCS: 62370; 99212 ==

== ENCOUNTER 2022-12-21 08:21 | Outpatient (REF) | payer MEDICAID, SELFPAY ==
[2022-12-21 08:37] LABS: MANUAL DIFF FLAG NO
[2022-12-21 09:06] LABS: Basophils Absolute Auto 0.1 X10*3/uL (0.0-0.2); Basophils Percent Auto 0.9 % (0-2); Eosinophils Absolute Auto 0.2 X10*3/uL (0.0-0.4); Eosinophils Percent Auto 2.4 % (0-4); Hematocrit 41.1 % (37.0-47.0); Hemoglobin 13.5 g/dl (12.0-16.0); Imm Gran Abs Auto 0.01 X10*3/uL (0.00-0.03); Imm Gran Pct Auto 0.1 % (0.0-0.4); Immature Retic Fraction 5.2 % (3.0-15.9); Lymphocytes Absolute Auto 1.1 X10*3/uL (1.2-4.9); Lymphocytes Percent Auto 16.3 % (20-40); Mean Corpuscular HGB Conc 32.8 g/dl (31.0-35.0); Mean Corpuscular Volume 100.5 fL (80.0-98.0); Mean Platelet Volume 10.6 fL (9.4-12.3); Monocytes Absolute Auto 0.4 X10*3/uL (0.1-1.2); Monocytes Percent Auto 6.5 % (2-11); Neutrophils Percent Auto 73.8 % (45-73); Platelet Count 258 X10*3/uL (160-400); Red Blood Count 4.09 X10*6/uL (4.20-5.50); Red Cell Distribution Width 14.2 % (11.0-16.0); White Blood Count 6.8 X10*3/uL (4.8-10.8)
[2022-12-21 09:41] LABS: Alanine Aminotransferase 13 U/L (0-31); Alkaline Phosphatase 87 U/L (39-117); Anion Gap 10 (12-20); Aspartate Amino Transferase 15 U/L (5-31); Bilirubin Total 0.5 mg/dL (0.0-1.0); Blood Urea Nitrogen 7 mg/dL (9-16); Calcium 9.3 mg/dL (8.4-10.2); Carbon Dioxide 31 mmol/L (22-29); Chloride 102 mmol/L (96-108); Cholesterol 167 mg/dL; Estimated Glomerular Filt Rate > 60; Glucose Random 87 mg/dL (60-115); HDL Cholesterol 48 mg/dL; Iron 120 mcg/dL (30-160); LDL Cholesterol Calculated 102 mg/dl; Percent Iron Saturation 41 % (15-50); Potassium 4.4 mmol/L (3.3-5.1); Sodium 139 mmol/L (135-145); Total Iron Binding Capacity 292 mcg/dL (228-428); Total Protein 6.5 g/dL (6.5-8.0); Triglycerides 85 mg/dL; Unsaturated Iron Binding 172 ug/dL
[2022-12-21 10:12] LABS: Ferritin 84 ng/mL (10-250); Folate 15.7 ng/mL (> or = 4.0); Thyroid Stimulating Hormone 3.72 uIU/mL (0.32-4.0); Vitamin B12 840 pg/mL (200-900); Vitamin D 25-OH Total 38.8 ng/mL (>30)
== END 2022-12-21 08:22 | disposition home or self-care (01) ==
LOC: HO.LAB 08:21
PROVIDERS: PCP Internal Medicine; Visit Provider Internal Medicine
DX: E03.9 Hypothyroidism, unspecified (principal); D64.9 Anemia, unspecified; E78.00 Pure hypercholesterolemia, unspecified
CPT/HCPCS: 36415; 80053; 80061; 82306; 82607; 82728; 82746; 83540; 84439; 84443; 85025; 85045

== ENCOUNTER → 2023-01-12 10:03 | Outpatient (BNVA) | payer MEDICARE, MEDICAID, SELFPAY | PROVIDERS: PCP Internal Medicine; Visit Provider Anesthesiology | DX: M96.1 Postlaminectomy syndrome, not elsewhere classified (principal); G90.522 Complex regional pain syndrome I of left lower limb; G89.4 Chronic pain syndrome; M50.20 Other cervical disc displacement, unspecified cervical region; M17.12 Unilateral primary osteoarthritis, left knee; R20.2 Paresthesia of skin; Z45.1 Encounter for adjustment and management of infusion pump | CPT/HCPCS: 62370 ==

== ENCOUNTER 2023-02-09 10:11 | Outpatient (REF) | payer MEDICARE, MEDICAID, SELFPAY ==
--- NOTE | ~2023-02-09 | MM_ITS ---
EXAMINATION: MM SCREENING DIGITAL BREAST TOMOSYNTHESIS, BILATERAL CLINICAL INFORMATION: Screening. Asymptomatic. The lifetime risk of breast cancer based on the Tyrer-Cuzick Model is 10%. COMPARISON: Mammography: 01/14/2022, 07/30/2020, 06/05/2019 TECHNIQUE: Digital breast tomosynthesis is performed in both the craniocaudal and mediolateral oblique views along with computer-aided detection (CAD). Synthesized 2D images are generated from the tomosynthesis. FINDINGS: There are scattered areas of fibroglandular density (ACR BI-RADS breast composition Category b). There are no significant masses, abnormal calcifications, or other abnormalities. No architectural abnormality or developing density or significant change from prior studies. The axilla and skin contours are unremarkable. MM/MM tomosynthesis screening BI IMPRESSION: No mammographic evidence of malignancy. ASSESSMENT: BI-RADS 1: Negative RECOMMENDATION: Routine annual mammography screening. This patient's information was entered into a reminder system with a target due date for their next mammogram.
== END 2023-02-09 10:12 | disposition home or self-care (01) ==
LOC: HO.MAMMO 10:11
PROVIDERS: PCP Internal Medicine; Visit Provider Internal Medicine
DX: Z12.31 Encounter for screening mammogram for malignant neoplasm of breast (principal)
CPT/HCPCS: 77063; 77067

== ENCOUNTER → 2023-03-02 09:56 | Outpatient (BNVA) | payer MEDICARE, MEDICAID, SELFPAY | PROVIDERS: PCP Internal Medicine; Visit Provider Anesthesiology | DX: Z45.1 Encounter for adjustment and management of infusion pump (principal); M96.1 Postlaminectomy syndrome, not elsewhere classified; G90.522 Complex regional pain syndrome I of left lower limb | CPT/HCPCS: 99212 ==

== ENCOUNTER → 2023-03-07 15:59 | Outpatient (BNVA) | payer MEDICARE, MEDICAID, SELFPAY | PROVIDERS: PCP Internal Medicine; Visit Provider Anesthesiology | DX: Z45.1 Encounter for adjustment and management of infusion pump (principal); M96.1 Postlaminectomy syndrome, not elsewhere classified; G90.522 Complex regional pain syndrome I of left lower limb | CPT/HCPCS: 62368 ==

== ENCOUNTER → 2023-04-06 12:00 | Outpatient (BNVA) | payer MEDICARE, MEDICAID, SELFPAY | PROVIDERS: PCP Internal Medicine; Visit Provider Anesthesiology | DX: M96.1 Postlaminectomy syndrome, not elsewhere classified (principal); G90.522 Complex regional pain syndrome I of left lower limb | CPT/HCPCS: 62370 ==

== ENCOUNTER → 2023-04-25 09:06 | Outpatient (REF) | payer MEDICARE, MEDICAID, SELFPAY | LOC: HO.SL 09:06 | PROVIDERS: PCP Internal Medicine; Visit Provider Internal Medicine | DX: G47.33 Obstructive sleep apnea (adult) (pediatric) (principal) | CPT/HCPCS: 95806 ==

== ENCOUNTER → 2023-05-04 10:00 | Outpatient (BNVA) | payer MEDICARE, MEDICAID, SELFPAY | PROVIDERS: PCP Internal Medicine; Visit Provider Anesthesiology | DX: Z45.1 Encounter for adjustment and management of infusion pump (principal); G90.522 Complex regional pain syndrome I of left lower limb; M50.20 Other cervical disc displacement, unspecified cervical region; M96.1 Postlaminectomy syndrome, not elsewhere classified; M17.12 Unilateral primary osteoarthritis, left knee; G89.4 Chronic pain syndrome; Z96.82 Presence of neurostimulator | CPT/HCPCS: 99212 ==

== ENCOUNTER 2023-05-12 09:30 | Outpatient (AMB) | payer OTHER, MEDICARE, MEDICAID, SELFPAY ==
[2023-05-12 09:52] VITALS: BP 106/56; PULSE 82; RESP 16; O2SAT 97; BMI 25.9
--- NOTE | 2023-05-12 09:52 | MHC.OFFVIS ---
Intake Vital Signs 05/12/23 09:52 Height 5 ft 4 in Weight 151 lb BMI 25.9 BP 106/56 L Blood Pressure Location Rt brachial Position Sitting Respiration 16 Pulse 82 Pulse Source Pulse Oximeter Pulse Oximetry (%) 97 Oxygen Delivery Method Room Air Intake Visit Reasons: Pump adjustment Intake Note: patient comes in for pain pump adjustment. Allergies No Known Allergies [No Known Allergies*] Allergy (Verified 05/12/23 09:51) HPI HPI Comments History of Present Illness Details Claudia is back in my office for pain pump medication adjustment.? She denies any help from the pain pump.? Request pump removal.? She went for consult in [place] and the offered her of some injection the nature which Claudia did not understand.? We are tapering her hydromorphone down to get rid of hydromorphone in her pump. Today we decrease the continues does to 100 micro g per day. I also decreased her on demand does to 15 micro g per event a and I left it for once in 24 hours. We agreed that she will not be using until next week her on demand does at all. Then I will be able to decrease the doses of the opioids to minimal rate. I probably would need to give her medication for opioid withdrawals just in case anyway. The plan stays the same as it was before. we discussed possibility of removing hydromorphone or escalating bupivacaine in her pump. Maybe this will result in better pain relief for the patient. In any way bupivacaine does not require tapering down before the pump removal we can not put the pump on minimal rate and planned the removal of the device. For the next appointment I will schedule her to come here in 1 week and in 2 weeks to continue decreasing the doses of the medications. Prior: under observation with Complex regional pain syndrome of the left lower extremity secondary to previous trauma.? She is on intrathecal drug delivery therapy she came today here for refill of the pain pump.? She reports that she does not feel pain alleviation too much from the pump.? She is telling me that gabapentin she takes orally helped her pain significantly.? She requests me to increase her dose to maximum 3600 mg a day.? I will do that today.? She requests me to refer her to [facility].? She feels numbness on the left side of her torso with administration of the bolus.? She feels that if she would have this sub served of the numbness in the lower extremity it would be helpful for her pain.? I offered her revision of the catheter with withdrawal of the catheter from T8 to T11-T12 with potential effect on more on the leg with this adjustment.? The patient wanted to go [facility] to perform this procedur [facility] Medical History Anxiety Cervical disc herniation Chronic pain syndrome Closed left ankle fracture Complex regional pain syndrome i of left lower limb Hypothyroidism Left leg paresthesias Opioid use disorder Postlaminectomy syndrome Primary osteoarthritis of left knee Renal lesion Tobacco abuse Surgical History H/O colonoscopy H/O lumbar discectomy History of left knee surgery Hx of cervical discectomy Left ACL tear Spinal stenosis Family History (Updated 03/23/23 @ 10:14 by Sonya Muniz) Father No problems noted. Mother Stroke Paternal Aunt Breast cancer Social History (Updated 12/25/21 @ 11:16 by Jessie Mcnally MD) Housing: House Are you a primary health care marketing specialist to a significant other at home: No Do you presently have visiting nurse or other home services: No Alcohol intake: current Alcohol intake frequency: a few times a week Alcohol type: wine Patient Tobacco Use Status: Current everyday Tobacco user Tobacco use type: Cigarette Cigarettes Per Day: 7 Years Smoked: 30 e-Cigarette/Vaping Use: Never Used Second Hand Smoke Exposure: Yes service: No Current occupational status: unemployed Cognitive needs: No Hearing needs: No Vision needs: No Review of Systems Const All systems reviewed & are unremarkable except as noted in HPI and below Physical Exam Vital Signs: Last Vital Signs Pulse 82 05/12/23 09:52 Resp 16 05/12/23 09:52 BP 106/56 L 05/12/23 09:52 Pulse Ox 97 05/12/23 09:52 Oxygen Delivery Method Room Air 05/12/23 09:52 BMI result Body Mass Index 25.9 Const General: healthy appearing and comfortable Chest Chest palpation & inspection: normal inspection of the chest Resp Effort & Inspection: normal respiratory effort, able to speak in complete sentences, normal respiratory pattern, no audible wheezes, no cough, respiratory effort not decreased and no grunting Cardio Jugular venous distension: no JVD Extrem General: Yes no pedal edema and Yes no calf tenderness Assessment & Plan Assessment & Plan (1) Postlaminectomy syndrome: Code(s): M96.1 - Postlaminectomy syndrome, not elsewhere classified (2) Complex regional pain syndrome i of left lower limb: Code(s): G90.522 - Complex regional pain syndrome I of left lower limb Plan: Plan of care is as above. She will visit us every weeks and we will deescalate the and eventually reduce the dose to 0. Before removing of her pump we agreed to try escalation of the bupivacaine alone without any hydromorphone in admixture. Plan Pump adjustment today: The device was read and adjustment of the doses were made. The continue was does was decreased to 100 micro g per day s the same, the number of the daily doses on demand was reduced to 1 dose a day 15 micro g patient is recommended not to use on demand doses at all unless she goes to withdrawal. Coding Level of Care Code Est Pt Level 3 (53607) Procedure Only Diagnoses Postlaminectomy syndrome M96.1 Complex regional pain syndrome i of left lower limb G90.522
== END 2023-05-12 10:23 | disposition home or self-care (01) ==
PROVIDERS: PCP Internal Medicine; Visit Provider Anesthesiology
DX: M96.1 Postlaminectomy syndrome, not elsewhere classified (principal); G90.522 Complex regional pain syndrome I of left lower limb; Z45.1 Encounter for adjustment and management of infusion pump
CPT/HCPCS: 62368; 99213

== ENCOUNTER → 2023-05-12 09:30 | Outpatient (BNVA) | payer OTHER, MEDICARE, MEDICAID, SELFPAY | PROVIDERS: PCP Internal Medicine; Visit Provider Anesthesiology | DX: M96.1 Postlaminectomy syndrome, not elsewhere classified (principal); G90.522 Complex regional pain syndrome I of left lower limb; Z45.1 Encounter for adjustment and management of infusion pump; Z79.899 Other long term (current) drug therapy | CPT/HCPCS: 62368; 99212 ==

== ENCOUNTER 2023-05-19 09:03 | Outpatient (AMB) | payer OTHER, MEDICARE, MEDICAID, SELFPAY ==
--- NOTE | 2023-05-19 09:08 | MHC.OFFVIS ---
Intake Vital Signs 05/19/23 09:18 Height 5 ft 4 in Weight 149 lb BMI 25.6 BP 98/56 L Blood Pressure Location Rt brachial Position Sitting Respiration 18 Pulse 74 Pulse Source Pulse Oximeter Pulse Oximetry (%) 99 Oxygen Delivery Method Room Air Intake Visit Reasons: Pump adjustment Intake Note: patient comes in for pain pump adjustment. Allergies No Known Allergies [No Known Allergies*] Allergy (Verified 05/19/23 09:17) HPI HPI Comments History of Present Illness Details Claudia is back in my office for pain pump medication adjustment.? She denies any help from the pain pump.? Request pump removal.? She went for consult in [place] and the offered her of some injection the nature which Claudia did not understand.? We are tapering her hydromorphone down to get rid of hydromorphone in her pump. Today we decrease the continues does to 60 micro g per day. I also eliminated any PTM doses. We agreed that next time she will visit this office the pump will be placed on minimal rate. It will stay like this in couple of weeks if no changes would occur I will obtain bupivacaine 20 milligrams/mL instill it in the pump and will start escalating bupivacaine doses. If escalation of bupivacaine will not result in significant pain improvement I will schedule this patient for removal of the pain pump. Prior: under observation with Complex regional pain syndrome of the left lower extremity secondary to previous trauma.? She is on intrathecal drug delivery therapy she came today here for refill of the pain pump.? She reports that she does not feel pain alleviation too much from the pump.? She is telling me that gabapentin she takes orally helped her pain significantly.? She requests me to increase her dose to maximum 3600 mg a day.? I will do that today.? She requests me to refer her to [facility].? She feels numbness on the left side of her torso with administration of the bolus.? She feels that if she would have this sub served of the numbness in the lower extremity it would be helpful for her pain.? I offered her revision of the catheter with withdrawal of the catheter from T8 to T11-T12 with potential effect on more on the leg with this adjustment.? The patient wanted to go [facility] to perform this procedur [facility] Medical History Anxiety Cervical disc herniation Chronic pain syndrome Closed left ankle fracture Complex regional pain syndrome i of left lower limb Hypothyroidism Left leg paresthesias Opioid use disorder Postlaminectomy syndrome Primary osteoarthritis of left knee Renal lesion Tobacco abuse Surgical History H/O colonoscopy H/O lumbar discectomy History of left knee surgery Hx of cervical discectomy Left ACL tear Spinal stenosis Family History (Updated 03/23/23 @ 10:14 by Sonya Muniz) Father No problems noted. Mother Stroke Paternal Aunt Breast cancer Social History (Updated 12/25/21 @ 11:16 by Jessie Mcnally MD) Housing: House Are you a primary palliative care nurse to a significant other at home: No Do you presently have visiting nurse or other home services: No Alcohol intake: current Alcohol intake frequency: a few times a week Alcohol type: wine Patient Tobacco Use Status: Current everyday Tobacco user Tobacco use type: Cigarette Cigarettes Per Day: 7 Years Smoked: 30 e-Cigarette/Vaping Use: Never Used Second Hand Smoke Exposure: Yes service: No Current occupational status: unemployed Cognitive needs: No Hearing needs: No Vision needs: No Review of Systems Const All systems reviewed & are unremarkable except as noted in HPI and below Physical Exam Vital Signs: Last Vital Signs Pulse 74 05/19/23 09:18 Resp 18 05/19/23 09:18 BP 98/56 L 05/19/23 09:18 Pulse Ox 99 05/19/23 09:18 Oxygen Delivery Method Room Air 05/19/23 09:18 BMI result Body Mass Index 25.6 Const General: healthy appearing and comfortable Chest Chest palpation & inspection: normal inspection of the chest Resp Effort & Inspection: normal respiratory effort, able to speak in complete sentences, normal respiratory pattern, no audible wheezes, no cough, respiratory effort not decreased and no grunting Cardio Jugular venous distension: no JVD Extrem General: Yes no pedal edema and Yes no calf tenderness Assessment & Plan Assessment & Plan (1) Postlaminectomy syndrome: Code(s): M96.1 - Postlaminectomy syndrome, not elsewhere classified (2) Complex regional pain syndrome i of left lower limb: Code(s): G90.522 - Complex regional pain syndrome I of left lower limb Plan: Plan of care is as above. She will visit us every weeks and we will deescalate the and eventually reduce the dose to 0. Next time here she needs to be placed with her pump on minimal rate. Before removing of her pump we agreed to try escalation of the bupivacaine alone without any hydromorphone in admixture. Plan Pump adjustment today: The device was read and adjustment of the doses were made. The continue was does was decreased to 60 micro g per day s the same, PTM was eliminated. Coding Level of Care Code Est Pt Level 3 (24754) Procedure Only Diagnoses Postlaminectomy syndrome M96.1 Complex regional pain syndrome i of left lower limb G90.522
[2023-05-19 09:18] VITALS: BP 98/56; PULSE 74; RESP 18; O2SAT 99; BMI 25.6
== END 2023-05-19 09:27 | disposition home or self-care (01) ==
PROVIDERS: PCP Internal Medicine; Visit Provider Anesthesiology
DX: M96.1 Postlaminectomy syndrome, not elsewhere classified (principal); G90.522 Complex regional pain syndrome I of left lower limb
CPT/HCPCS: 62368; 99213

== ENCOUNTER → 2023-05-19 09:03 | Outpatient (BNVA) | payer OTHER, MEDICARE, MEDICAID, SELFPAY | PROVIDERS: PCP Internal Medicine; Visit Provider Anesthesiology | DX: Z45.49 Encounter for adjustment and management of other implanted nervous system device (principal); G90.522 Complex regional pain syndrome I of left lower limb; M96.1 Postlaminectomy syndrome, not elsewhere classified | CPT/HCPCS: 62368; 99212 ==

== ENCOUNTER 2023-05-27 08:46 | Outpatient (AMB) | payer MEDICARE, MEDICAID, SELFPAY ==
--- NOTE | 2023-05-27 08:47 | MHC.OFFVIS ---
Intake Vital Signs 05/27/23 08:51 Height 5 ft 4 in Weight 149 lb BMI 25.6 BP 102/58 L Blood Pressure Location Lt brachial Position Sitting Respiration 14 Pulse 78 Pulse Source Pulse Oximeter Intake Visit Reasons: Pump adjustment per Dr. Sosa Allergies No Known Allergies [No Known Allergies*] Allergy (Verified 05/19/23 09:17) HPI Pump adjustment per Dr. Sosa HPI Details 62-year-old female presenting today for a pump adjustment per Dr Mayco Sosa MD. Patient presents for changing her pump settings to minimal rate. The patient has difficulty standing on her legs. She reports a burning sensation in her foot due to the air conditioning. [facility] Medical History Anxiety Cervical disc herniation Chronic pain syndrome Closed left ankle fracture Complex regional pain syndrome i of left lower limb Hypothyroidism Left leg paresthesias Opioid use disorder Postlaminectomy syndrome Primary osteoarthritis of left knee Renal lesion Tobacco abuse Surgical History H/O colonoscopy H/O lumbar discectomy History of left knee surgery Hx of cervical discectomy Left ACL tear Spinal stenosis Family History (Updated 03/23/23 @ 10:14 by Sonya Muniz) Father No problems noted. Mother Stroke Paternal Aunt Breast cancer Social History (Updated 12/25/21 @ 11:16 by Jessie Mcnally MD) Housing: House Are you a primary inspector health care facilities to a significant other at home: No Do you presently have visiting nurse or other home services: No Alcohol intake: current Alcohol intake frequency: a few times a week Alcohol type: wine Patient Tobacco Use Status: Current everyday Tobacco user Tobacco use type: Cigarette Cigarettes Per Day: 7 Years Smoked: 30 e-Cigarette/Vaping Use: Never Used Second Hand Smoke Exposure: Yes service: No Current occupational status: unemployed Cognitive needs: No Hearing needs: No Vision needs: No Review of Systems Const All systems reviewed & are unremarkable except as noted in HPI and below Physical Exam Vital Signs: Last Vital Signs Pulse 78 05/27/23 08:51 Resp 14 05/27/23 08:51 BP 102/58 L 05/27/23 08:51 BMI result Body Mass Index 25.6 General: Appears afebrile. Alert and oriented. Mood and affect appropriate. Follows and participates in conversation appropriately. Respiratory effort is unlabored. Able to transition from sit to stand unassisted. Ambulates with bilaterally normal heel strike and toe off. Results Reviewed Results Reviewed: No imaging is available for review. Assessment & Plan Assessment & Plan (1) Complex regional pain syndrome i of left lower limb: Code(s): G90.522 - Complex regional pain syndrome I of left lower limb Plan The pump was interrogated and set to minimal rate, settings updated. The patient will follow up with Dr. Sosa. Scribed for Dr. Epstein by Angel Klein, emergency medical technician basic, on 05/27/2023. I, Dr. Epstein, have personally reviewed and agree with the information entered by the scribe. Coding Level of Care Code Est Pt Level 3 (89438) Diagnoses Complex regional pain syndrome i of left lower limb G90.522
[2023-05-27 08:51] VITALS: BP 102/58; PULSE 78; RESP 14; BMI 25.6
== END 2023-05-27 08:59 | disposition home or self-care (01) ==
PROVIDERS: PCP Internal Medicine; Visit Provider Internal Medicine
DX: G90.522 Complex regional pain syndrome I of left lower limb (principal)
CPT/HCPCS: 99213

== ENCOUNTER → 2023-05-27 08:46 | Outpatient (BNVA) | payer OTHER, MEDICARE, MEDICAID, SELFPAY | PROVIDERS: PCP Internal Medicine; Visit Provider Internal Medicine | DX: Z45.42 Encounter for adjustment and management of neurostimulator (principal); G90.522 Complex regional pain syndrome I of left lower limb; M50.20 Other cervical disc displacement, unspecified cervical region; M17.12 Unilateral primary osteoarthritis, left knee; G89.4 Chronic pain syndrome; M96.1 Postlaminectomy syndrome, not elsewhere classified | CPT/HCPCS: 99212 ==

== ENCOUNTER 2023-06-13 10:01 | Outpatient (AMB) | payer OTHER, MEDICARE, MEDICAID, SELFPAY ==
--- NOTE | 2023-06-13 10:06 | A.OFFVIS_ITS ---
Intake Vital Signs 06/13/23 10:08 Height 5 ft 4 in Weight 154 lb 2 oz BMI 26.5 BP 120/66 Blood Pressure Location Lt brachial Position Sitting Respiration 16 Pulse 81 Pulse Source Pulse Oximeter Pulse Oximetry (%) 99 Oxygen Delivery Method Room Air Intake Visit Reasons: ITDD REFILL Allergies No Known Allergies [No Known Allergies*] Allergy (Verified 06/13/23 10:09) HPI HPI Comments History of Present Illness Details Claudia is back in my office for pain pum medication refill. We today refilled up her pain pump with bupivacaine alone. It is 4 milligrams/mL. She will receive 1.6 mg of bupivacaine the day continuous as well as for doses of on demand bupivacaine 0.5 mg every 4 hours 4 times a day. She will be able to apply the PTM 4 times a day. Prior: under observation with Complex regional pain syndrome of the left lower extremity secondary to previous trauma.? She is on intrathecal drug delivery therapy she came today here for refill of the pain pump.? She reports that she does not feel pain alleviation too much from the pump.? She is telling me that gabapentin she takes orally helped her pain significantly.? She requests me to increase her dose to maximum 3600 mg a day.? I will do that today.? She requests me to refer her to [facility] consult.? She feels numbness on the left side of her torso with administration of the bolus.? She feels that if she would have this sub served of the numbness in the lower extremity it would be helpful for her pain.? I offered her revision of the catheter with withdrawal of the catheter from T8 to T11-T12 with potential effect on more on the leg with this adjustment.? The patient [facility] this procedur [facility] Medical History Anxiety Cervical disc herniation Chronic pain syndrome Closed left ankle fracture Complex regional pain syndrome i of left lower limb Hypothyroidism Left leg paresthesias Opioid use disorder Postlaminectomy syndrome Primary osteoarthritis of left knee Renal lesion Tobacco abuse Surgical History H/O colonoscopy H/O lumbar discectomy History of left knee surgery Hx of cervical discectomy Left ACL tear Spinal stenosis Family History (Updated 03/23/23 @ 10:14 by Sonya Muniz) Father No problems noted. Mother Stroke Paternal Aunt Breast cancer Social History (Updated 12/25/21 @ 11:16 by Jessie Mcnally MD) Housing: House Are you a primary adult day care worker to a significant other at home: No Do you presently have visiting nurse or other home services: No Alcohol intake: current Alcohol intake frequency: a few times a week Alcohol type: wine Patient Tobacco Use Status: Current everyday Tobacco user Tobacco use type: Cigarette Cigarettes Per Day: 7 Years Smoked: 30 e-Cigarette/Vaping Use: Never Used Second Hand Smoke Exposure: Yes service: No Current occupational status: unemployed Cognitive needs: No Hearing needs: No Vision needs: No Review of Systems Const All systems reviewed & are unremarkable except as noted in HPI and below Physical Exam Vital Signs: Last Vital Signs Pulse 81 06/13/23 10:08 Resp 16 06/13/23 10:08 BP 120/66 06/13/23 10:08 Pulse Ox 99 06/13/23 10:08 Oxygen Delivery Method Room Air 06/13/23 10:08 BMI result Body Mass Index 26.5 Const General: healthy appearing and comfortable Chest Chest palpation & inspection: normal inspection of the chest Resp Effort & Inspection: normal respiratory effort, able to speak in complete sentences, normal respiratory pattern, no audible wheezes, no cough, respiratory effort not decreased and no grunting Cardio Jugular venous distension: no JVD Extrem General: Yes no pedal edema and Yes no calf tenderness Assessment & Plan Assessment & Plan (1) Postlaminectomy syndrome: Code(s): M96.1 - Postlaminectomy syndrome, not elsewhere classified (2) Complex regional pain syndrome i of left lower limb: Code(s): G90.522 - Complex regional pain syndrome I of left lower limb Plan: R we will continue escalating bupivacaine doses until significant pain relief will be obtained. If no relief I will remove the pump. Most likely than her nature of the pain will be central. Plan THE PATIENT CAME TODAY IN the office FOR THE CHANGE OF THE MEDICATION IN his PAIN PUMP.? ? The name and date of were verified and informed consent was obtained for the procedure. ?The pump was interrogated and the residual amount of fluid was found to be?5 mL. She WAS POSITIONED prone on the bed AND THE AREA OF THE INTRATHECAL PUMP WAS PREPPED WITH CHLORAPREP. The fenestrated drape was sterilely applied over the area of the pump. Sterile gloves were worn and the aspiration system was assembled containing 2 in 22 gauge noncoring needle, the needle was connected to extension tubing which was connected to the 20 cc sterile syringe. The pain pump was palpated under the skin in the patient's right buttock. The needle was inserted through the skin. After that the central plug of the pain pump was easily located and penetrated with fresh assembly of 22 gauge noncoring needle connected to the fresh sterile syringe 20 cc through the connection tubing. Fl uid from the pump was aspirated. The clear fluid was going into the syringe the total amount of the fluid was? 7 mL .. After that a new batch? of medication was obtained which was containing bupivacaine 14 milligrams/mL (new concentration).The admixture was made in 20 cc syringe prepared by [facility] compounding pharmacy. The syringe was connected to the bacterial filter, and then connected to the extension tubing. After that the medication in the syringe was slowly instilled into the pump with aspirations at 15 and 5 cc pozo. after that the needle was removed and sterile dressing was applied in the for of the band-aid. I will start her on continues dose of bupivacaine alone at 1.6 mg as well as 4.doses of the bupivacaine 0.5 mg on demand every 4 hours no more than 4 doses a day . Coding Level of Care Code Est Pt Level 4 (35867) Procedure Only Diagnoses Postlaminectomy syndrome M96.1 Complex regional pain syndrome i of left lower limb G90.522
[2023-06-13 10:08] VITALS: BP 120/66; PULSE 81; RESP 16; O2SAT 99; BMI 26.5
== END 2023-06-13 11:03 | disposition home or self-care (01) ==
PROVIDERS: PCP Internal Medicine; Visit Provider Anesthesiology
DX: Z45.1 Encounter for adjustment and management of infusion pump (principal); M96.1 Postlaminectomy syndrome, not elsewhere classified; G90.522 Complex regional pain syndrome I of left lower limb
CPT/HCPCS: 62370

== ENCOUNTER → 2023-06-13 10:01 | Outpatient (BNVA) | payer OTHER, MEDICARE, MEDICAID, SELFPAY | PROVIDERS: PCP Internal Medicine; Visit Provider Anesthesiology | DX: Z45.1 Encounter for adjustment and management of infusion pump (principal); G90.522 Complex regional pain syndrome I of left lower limb; M96.1 Postlaminectomy syndrome, not elsewhere classified; M17.12 Unilateral primary osteoarthritis, left knee; M50.10 Cervical disc disorder with radiculopathy, unspecified cervical region; R20.2 Paresthesia of skin; G89.4 Chronic pain syndrome; Z79.891 Long term (current) use of opiate analgesic | CPT/HCPCS: 62370 ==

== ENCOUNTER 2023-06-20 10:00 | Outpatient (RCR) | payer OTHER, MEDICARE, MEDICAID, SELFPAY | END 2023-06-29 10:42 | disposition home or self-care (01) | LOC: HO.PT 10:00 | PROVIDERS: PCP Internal Medicine; Visit Provider Physical Medicine & Rehabilitation Pain Medicine | DX: G57.72 Causalgia of left lower limb (principal) | CPT/HCPCS: 97110; 97140; 97161 ==

== ENCOUNTER 2023-07-11 15:27 | Outpatient (AMB) | payer OTHER, MEDICARE, MEDICAID, SELFPAY ==
--- NOTE | 2023-07-11 15:35 | A.OFFVIS_ITS ---
Intake Vital Signs 07/11/23 15:50 Height 5 ft 4 in Weight 157 lb 8 oz BMI 27.0 BP 108/59 L Blood Pressure Location Rt brachial Position Sitting Pulse 77 Pulse Source Pulse Oximeter Pulse Oximetry (%) 98 Oxygen Delivery Method Room Air Intake Visit Reasons: ITDD adjustment (weaning) Intake Note: Pain today 05/09. Supervisor Type Bar And Segment Required: No Accompanied by: Self / Same As Patient Allergies No Known Allergies [No Known Allergies*] Allergy (Verified 07/11/23 15:50) HPI HPI Comments History of Present Illness Details Claudia is back in my office for pain pum adjustment. She continues to be a bupivacaine continuous 1.6 mg in 24 hours as well as 0.6 mg bupivacaine for injections a day in every 4 hours with does restriction interval of 1 in for hours she is receiving 4. boluses a day. I will schedule her for new medication does which is 0.85 mg with the same frequency every 4 hours 4 times a day this will increase her total daily dose to 4.9 mg per day a and will bring her refill little bit early on July. This is if she wants to keep this doses as it is. She wants to me to adjust her pain pump again that will change the dose of the refill. Her concentration is 14 milligrams/mL. Next time she is here I will increase her concentration to 25 mg per ml. Currently she is under observation and pain management in [facility]. She was started on nortriptyline 20 mg and she reports some minimal improvement on nortriptyline. I told her that every minimal pain improvement counts. She requests me to consider a knee arthritis as 1 of the sources of her pain. We decided that I will send her for the left knee x-ray. I will see her in my office on August 11, if she wants to see an adjustment earlier.. 0 Prior: under observation with Complex regional pain syndrome of the left lower extremity secondary to previous trauma.? She is on intrathecal drug delivery therapy she came today here for refill of the pain pump.? She reports that she does not feel pain alleviation too much from the pump.? She is telling me that gabapentin she takes orally helped her pain significantly.? She requests me to increase her dose to maximum 3600 mg a day.? I will do that today.? She requests me to refer her to [facility].? She feels numbness on the left side of her torso with administration of the bolus.? She feels that if she would have this sub served of the numbness in the lower extremity it would be helpful for her pain.? I offered her revision of the catheter with withdrawal of the catheter from T8 to T11-T12 with potential effect on more on the leg with this adjustment.? The patient wanted to go [facility] to perform this procedur [facility] Medical History Anxiety Cervical disc herniation Chronic pain syndrome Closed left ankle fracture Complex regional pain syndrome i of left lower limb Hypothyroidism Left leg paresthesias Opioid use disorder Postlaminectomy syndrome Primary osteoarthritis of left knee Renal lesion Tobacco abuse Surgical History H/O colonoscopy H/O lumbar discectomy History of left knee surgery Hx of cervical discectomy Left ACL tear Spinal stenosis Family History (Updated 03/23/23 @ 10:14 by Sonya Muniz) Father No problems noted. Mother Stroke Paternal Aunt Breast cancer Social History (Updated 12/25/21 @ 11:16 by Jessie Mcnally MD) Housing: House Are you a primary senior care provider to a significant other at home: No Do you presently have visiting nurse or other home services: No Alcohol intake: current Alcohol intake frequency: a few times a week Alcohol type: wine Patient Tobacco Use Status: Current everyday Tobacco user Tobacco use type: Cigarette Cigarettes Per Day: 7 Years Smoked: 30 e-Cigarette/Vaping Use: Never Used Second Hand Smoke Exposure: Yes service: No Current occupational status: unemployed Cognitive needs: No Hearing needs: No Vision needs: No Review of Systems Const All systems reviewed & are unremarkable except as noted in HPI and below Physical Exam Vital Signs: Last Vital Signs Pulse 77 07/11/23 15:50 BP 108/59 L 07/11/23 15:50 Pulse Ox 98 07/11/23 15:50 Oxygen Delivery Method Room Air 07/11/23 15:50 BMI result Body Mass Index 27.0 Const General: healthy appearing and comfortable Chest Chest palpation & inspection: normal inspection of the chest Resp Effort & Inspection: normal respiratory effort, able to speak in complete sentences, normal respiratory pattern, no audible wheezes, no cough, respiratory effort not decreased and no grunting Cardio Jugular venous distension: no JVD Extrem General: Yes no pedal edema and Yes no calf tenderness Assessment & Plan Assessment & Plan (1) Osteoarthritis of left knee: Code(s): M17.12 - Unilateral primary osteoarthritis, left knee (2) Postlaminectomy syndrome: Code(s): M96.1 - Postlaminectomy syndrome, not elsewhere classified (3) Complex regional pain syndrome i of left lower limb: Code(s): G90.522 - Complex regional pain syndrome I of left lower limb Plan: We will continue escalating bupivacaine doses until significant pain relief will be obtained. New pump refill on 10/19/2023. If patient would like to come for an other adjustment it will change her date on pump refill. I am going to increase the concentration from 14 milligrams/mL to 25 milligrams/mL. Plan The patient's pain pump was interrogated and adjusted. The dose on demand was increased from 0.6- to 0.85 mg. I will recommend her to consider 1 more pump adjustment if she would like to. Orders: Orders XR knee LT 4V Today M17.12 - Unilateral primary osteoarthritis, left knee Coding Level of Care Code Est Pt Level 4 (61040) Procedure Only Diagnoses Osteoarthritis of left knee M17.12 Postlaminectomy syndrome M96.1 Complex regional pain syndrome i of left lower limb G90.522
[2023-07-11 15:50] VITALS: BP 108/59; PULSE 77; O2SAT 98; BMI 27.0
== END 2023-07-11 16:12 | disposition home or self-care (01) ==
PROVIDERS: PCP Internal Medicine; Visit Provider Anesthesiology
DX: M17.12 Unilateral primary osteoarthritis, left knee (principal); M96.1 Postlaminectomy syndrome, not elsewhere classified; G90.522 Complex regional pain syndrome I of left lower limb; Z45.1 Encounter for adjustment and management of infusion pump
CPT/HCPCS: 62367; 99214

== ENCOUNTER → 2023-07-11 15:27 | Outpatient (BNVA) | payer OTHER, MEDICARE, MEDICAID, SELFPAY | PROVIDERS: PCP Internal Medicine; Visit Provider Anesthesiology | DX: Z45.1 Encounter for adjustment and management of infusion pump (principal); M96.1 Postlaminectomy syndrome, not elsewhere classified; M17.12 Unilateral primary osteoarthritis, left knee; G90.522 Complex regional pain syndrome I of left lower limb | CPT/HCPCS: 62367; 99212 ==

== ENCOUNTER 2023-07-13 08:47 | Outpatient (AMB) | payer OTHER, SELFPAY ==
[2023-07-13 08:51] VITALS: BP 118/70; PULSE 83; O2SAT 95; BMI 26.6
--- NOTE | 2023-07-13 08:51 | MHC.PC.OV ---
Vital Signs 07/13/23 08:51 Height 5 ft 4 in Weight 155 lb BMI 26.6 BP 118/70 Blood Pressure Location Lt brachial Position Sitting Pulse 83 Pulse Source Pulse Oximeter Pulse Oximetry (%) 95 Oxygen Delivery Method Room Air Intake Visit Reasons: Complex regional PAin Syndrome Allergies No Known Allergies [No Known Allergies*] Allergy (Verified 07/13/23 08:52) Medication List - Last Reconciled 07/13/23 by Hayden Man MD [toilet seat risers and Raised toilet seat As directed] alprazolam 0.25 mg PO DAILY PRN 90 days alprazolam 0.25 mg PO DAILY ascorbate calcium (vitamin C) 500 mg PO DAILY cyanocobalamin (vitamin B-12) 1,000 mcg PO .QOD duloxetine 60 mg PO DAILY 90 days ferrous sulfate (FeroSul) 325 mg PO DAILY gabapentin 1,200 mg (2 x 600 mg) PO TID 90 days levothyroxine 88 mcg PO QAM magnesium oxide 400 mg PO DAILY miscellaneous medical supply 1 ea miscellaneous DAILY nortriptyline 10 mg PO BEDTIME [Raised toilet seat As directed] terbinafine HCl 250 mg PO DAILY 90 days [toilet seat risers As directed] triamcinolone acetonide 0.025% appl topical [Wrist SPlints As directed] Tobacco use date assessed: 03/23/23 Dental Screening Dental Screen Date: 07/13/23 Did you have a dental visit in the last 12 months?: Yes Did you have a dental problem in the last 6 months where you did not have access to dental care?: No Was dental information given to patient?: Patient has dentist HPI Complex regional PAin Syndrome HPI Details 62-year-old overweight female smoker with a history of hypothyroidism generalized anxiety disorder complex regional pain syndrome of the left lower limb post laminectomy syndrome coming in for follow-up. Patient was last seen in February 2023. Mammogram is up-to-date colonoscopy is up-to-date. Patient follows up with pain management continuous bupivacaine intrathecal drug delivery therapy pain pump. Patient also had a sleep study done in March 2023 showing mild sleep apnea and advised treatment with conservative management. PAtient goes to [facility]. now and rx nortriptylline. which is helping. PAtient- complains of macular rash on the arms groin and leg and feels that this is fungal infection patient does have onychomycosis also and was seen by the dinkey skinner before was given a cream but patient states it is not resolving but was told by the dinkey skinner that it was getting better. Patient wants to have this treated still discussed about [id number] antifungal creams she can use but other problem is the onychomycosis and she does want this treated. Discussed the need to do liver function tests in a month's time after starting it. As for the smoking not ready to stop but is open to getting the Chantix to try to help stop smoking. [facility] Medical History Anxiety Cervical disc herniation Chronic pain syndrome Closed left ankle fracture Complex regional pain syndrome i of left lower limb Hypothyroidism Left leg paresthesias Opioid use disorder Postlaminectomy syndrome Primary osteoarthritis of left knee Renal lesion Tobacco abuse Surgical History H/O colonoscopy H/O lumbar discectomy History of left knee surgery Hx of cervical discectomy Left ACL tear Spinal stenosis Family History (Updated 03/23/23 @ 10:14 by Sonya Muniz) Father No problems noted. Mother Stroke Paternal Aunt Breast cancer Social History (Updated 12/25/21 @ 11:16 by Jessie Mcnally MD) Housing: House Are you a primary dog daycare provider to a significant other at home: No Do you presently have visiting nurse or other home services: No Alcohol intake: current Alcohol intake frequency: a few times a week Alcohol type: wine Patient Tobacco Use Status: Current everyday Tobacco user Tobacco use type: Cigarette Cigarettes Per Day: 7 Years Smoked: 30 Packs per year/per ci.50 e-Cigarette/Vaping Use: Never Used Second Hand Smoke Exposure: Yes service: No Current occupational status: unemployed Cognitive needs: No Hearing needs: No Vision needs: No Questionnaire PHQ-9 Over the last 2 weeks, how often have you been bothered by any of the following problems? 1. Little interest or pleasure in doing things: not at all 2. Feeling down, depressed, or hopeless: not at all 3. Trouble falling or staying asleep, or sleeping too much: not at all 4. Feeling tired or having little energy: not at all 5. Poor appetite or overeating: not at all 6. Feeling bad about yourself - or that you are a failure or have let yourself or your family down: not at all 7. Trouble concentrating on things, such as reading the newspaper or watching television: not at all 8. Moving or speaking so slowly that other people could have noticed. Or the opposite - being so fidgety or restless that you have been moving around a lot more than usual: not at all 9. Thoughts that you would be better off or of hurting yourself in some way: not at all Total score: 0 Depression Screening Interpretation: Negative Source: Developed by Drs. Tai Viramontes, Sherlyn Garza, Stalin Guerra and colleagues, with an educational marcie from [email or web address]. Thrive Questionnaire Date Thrive assessed: 03/23/23 AUDIT C Alcohol Use Questionnaire (AUDIT-C) 1. How often do you have a drink containing alcohol?: 2-3 times a week 2. How many drinks containing alcohol do you have on a typical day when you are drinking?: 1 or 2 3. How often do you have six or more drinks on one occasion?: Never Total Score: 3 JESSICA-7 AMB Questionnaire JESSICA-7 Date JESSICA - 7 assessed: 03/23/23 Source: Developed by Drs. Tai Viramontes, Sherlyn Garza, Stalin Guerra and colleagues, with an educational marcie from [email or web address]. Physical exam (Primary Care) Vital Signs: Last Vital Signs Pulse 83 07/13/23 08:51 BP 118/70 07/13/23 08:51 Pulse Ox 95 07/13/23 08:51 Oxygen Delivery Method Room Air 07/13/23 08:51 BMI result Body Mass Index 26.6 Tobacco/Smoking Status: Tobacco use Status Tobacco use date assessed 03/23/23 07/13/23 08:57 Patient Tobacco Use Status Current everyday Tobacco 07/13/23 08:57 Tobacco use type Cigarette 07/13/23 08:57 e-Cigarette/Vaping Use Never Used 07/13/23 08:57 Macular rash from 1 cm to 3 cm rounded areas with slight scaliness on the forearm and legs multiple PHQ-9: PHQ-9 Score PHQ-9: Total score 0 07/13/23 08:57 Depression Screening Interpretation: Negative Thrive Assessment: Date of Thrive Assessment Date Thrive assessed 03/23/23 07/13/23 08:57 Const General: alert; No acute distress Eyes Conjunctivae: conjunctivae normal Resp Auscultation: clear to auscultation bilaterally Cardio Rate: regular rate Rhythm: regular rhythm GI Inspection: Yes normal to inspection Extrem General: Yes normal to inspection and No edema Assessment and Plan Assessment & Plan (1) Tobacco abuse: Comment: Quitting discussed She declined Chantix or nicotine patch Code(s): Z72.0 - Tobacco use Plan: Patient is strongly advised to stop smoking! (2) Hypothyroidism: Code(s): E03.9 - Hypothyroidism, unspecified Qualifiers: Hypothyroidism type: acquired Qualified Code(s): E03.9 - Hypothyroidism, unspecified Plan: December last test. Continue with present thyroid medication (3) Complex regional pain syndrome i of left lower limb: Code(s): G90.522 - Complex regional pain syndrome I of left lower limb Plan: Patient continues to follow-up with pain management. On duloxetine 60 mg once a day nortriptyline 10 mg at bedtime (4) Generalized anxiety disorder: Code(s): F41.1 - Generalized anxiety disorder Plan: Continue with present management (5) Onychomycosis: Code(s): B35.1 - Tinea unguium Orders: Orders Complete Blood Count Auto Diff 1 Month B35.1 - Tinea unguium Thyroid Stimulating Hormone 1 Month B35.1 - Tinea unguium Free T4 (Free Thyroxine) 1 Month B35.1 - Tinea unguium Comprehensive Met. Panel 1 Month B35.1 - Tinea unguium Vitamin B12 and Folate 1 Month B35.1 - Tinea unguium Medications: New varenicline (Chantix Starting Month Box) PO PER PKG DIR 53 ea 0RF Z72.0 - Tobacco use Changed From terbinafine HCl 250 mg PO DAILY 30 tabs 0RF B35.1 - Tinea unguium To terbinafine HCl 250 mg PO DAILY 90 days 90 tabs 1RF B35.1 - Tinea unguium Discontinued ketoconazole 2% apply cream to affected areas x 14 days. Discontinued Reason: Doctor's Order 1 appl topical DAILY 30 grams 0RF B36.0 - Pityriasis versicolor Coding Level of Care Code Est Pt Level 4 (56671) Diagnoses Tobacco abuse Z72.0 Acquired hypothyroidism E03.9 Hypothyroidism type: acquired Complex regional pain syndrome i of left lower limb G90.522 Generalized anxiety disorder F41.1 Onychomycosis B35.1
== END 2023-07-13 09:23 | disposition home or self-care (01) ==
PROVIDERS: PCP Internal Medicine; Visit Provider Internal Medicine
DX: Z72.0 Tobacco use (principal); E03.9 Hypothyroidism, unspecified; G90.522 Complex regional pain syndrome I of left lower limb; F41.1 Generalized anxiety disorder; B35.1 Tinea unguium
CPT/HCPCS: 99214

== ENCOUNTER 2023-08-11 09:45 | Outpatient (AMB) | payer OTHER, MEDICARE, MEDICAID, SELFPAY ==
--- NOTE | 2023-08-11 10:08 | A.OFFVIS_ITS ---
Intake Vital Signs 08/11/23 10:20 Height 5 ft 4 in Weight 160 lb BMI 27.5 BP 126/58 L Blood Pressure Location Rt brachial Position Sitting Respiration 16 Pulse 97 Pulse Source Pulse Oximeter Pulse Oximetry (%) 96 Oxygen Delivery Method Room Air Intake Visit Reasons: ITDD REFILL/ LVM Allergies No Known Allergies [No Known Allergies*] Allergy (Verified 08/11/23 10:21) HPI HPI Comments History of Present Illness Details Claudia is back in my office for pain pum adjustment. She is here for medication pump refill and dose adjustment. The the pump refill see as below. She reports certainly improvement with bupivacaine doses escalation. We will continue doses escalation as below. Today we sealed up her pump with bupivacaine 25 milligrams/mL. Way getting closer to maximum concentration of bupivacaine. Simple continuous dose will be 1.8 mg a day. She will receive 1 mg PTM 4 times a day once in 4 hours. She still reports pleasant sensation in the foot. But overall she is more satisfied with pain pump nonopioid compared to the opioid field pump in the past. Pump refill see as below. Prior: under observation with Complex regional pain syndrome of the left lower extremity secondary to previous trauma.? She is on intrathecal drug delivery therapy she came today here for refill of the pain pump.? She reports that she does not feel pain alleviation too much from the pump.? She is telling me that gabapentin she takes orally helped her pain significantly.? She requests me to increase her dose to maximum 3600 mg a day.? I will do that today.? She requests me to refer her to [facility].? She feels numbness on the left side of her torso with administration of the bolus.? She feels that if she would have this sub served of the numbness in the lower extremity it would be helpful for her pain.? I offered her revision of the catheter with withdrawal of the catheter from T8 to T11-T12 with potential effect on more on the leg with this adjustment.? The patient wanted to go to the [facility] to perform this procedur [facility] Medical History Anxiety Cervical disc herniation Chronic pain syndrome Closed left ankle fracture Complex regional pain syndrome i of left lower limb Hypothyroidism Left leg paresthesias Opioid use disorder Postlaminectomy syndrome Primary osteoarthritis of left knee Renal lesion Tobacco abuse Surgical History H/O colonoscopy H/O lumbar discectomy History of left knee surgery Hx of cervical discectomy Left ACL tear Spinal stenosis Family History (Updated 03/23/23 @ 10:14 by Sonya Muniz) Father No problems noted. Mother Stroke Paternal Aunt Breast cancer Social History (Updated 12/25/21 @ 11:16 by Jessie Mcnally MD) Housing: House Are you a primary intensive care unit nurse to a significant other at home: No Do you presently have visiting nurse or other home services: No Alcohol intake: current Alcohol intake frequency: a few times a week Alcohol type: wine Patient Tobacco Use Status: Current everyday Tobacco user Tobacco use type: Cigarette Cigarettes Per Day: 7 Years Smoked: 30 e-Cigarette/Vaping Use: Never Used Second Hand Smoke Exposure: Yes service: No Current occupational status: unemployed Cognitive needs: No Hearing needs: No Vision needs: No Review of Systems Const All systems reviewed & are unremarkable except as noted in HPI and below Physical Exam Vital Signs: Last Vital Signs Pulse 97 08/11/23 10:20 Resp 16 08/11/23 10:20 BP 126/58 L 08/11/23 10:20 Pulse Ox 96 08/11/23 10:20 Oxygen Delivery Method Room Air 08/11/23 10:20 BMI result Body Mass Index 27.5 Const General: healthy appearing and comfortable Chest Chest palpation & inspection: normal inspection of the chest Resp Effort & Inspection: normal respiratory effort, able to speak in complete sentences, normal respiratory pattern, no audible wheezes, no cough, respiratory effort not decreased and no grunting Cardio Jugular venous distension: no JVD Extrem General: Yes no pedal edema and Yes no calf tenderness Assessment & Plan Assessment & Plan (1) Osteoarthritis of left knee: Code(s): M17.12 - Unilateral primary osteoarthritis, left knee (2) Postlaminectomy syndrome: Code(s): M96.1 - Postlaminectomy syndrome, not elsewhere classified Plan: ? Intrathecal pump refill. THE PATIENT CAME TODAY IN THE OR - PACU FOR THE CHANGE OF THE MEDICATION IN her PAIN PUMP. The name and date of were verified and informed consent was obtained for the procedure. ?The pump was interrogated and the residual amount of fluid was found to be 2.0 mL. SHE WAS POSITIONED prone on the bed AND THE AREA OF THE INTRATHECAL PUMP WAS PREPPED WITH CHLORAPREP. The fenestrated drape was sterilely applied over the area of the pump. Sterile gloves were worn and of the aspiration system was assembled containing 2 in 22 gauge noncoring needle, the needle was connected to extension tubing which was connected to the 20 cc sterile syringe. The pain pump was palpated under the skin in the patient's right buttock area. The needle was inserted through the skin and the central plug of the pain pump and fluid was aspirated. The clear fluid was going into the syringe the total amount of the fluid was 2.0 mL .. After that a new batch? of medication was obtained which was containing: bupivacaine 25 mg per ml. The admixture was made in 20 cc syringe prepared by [facility] compounding pharmacy. The syringe was connected to the bacterial filter, and then connected to the extension tubing. After that the medication in the syringe was slowly instilled into the pump with aspirations at 15 and 5 cc pozo.? The pump was reprogrammed for the doses of continues bupivacaine 1.8 milligrams per day as well as 1 mg PTM on demand doses every 4 hours no more than 4 times a day. (3) Complex regional pain syndrome i of left lower limb: Code(s): G90.522 - Complex regional pain syndrome I of left lower limb Plan: We will continue escalating bupivacaine doses until significant pain relief will be obtained. New pump refill on 10/30/2023. It is awfully close to new year will schedule it little bit earlier. Today concentration changed to 25 milligrams/mL. If patient would like to come for an other adjustment it will change her date on pump refill. I am going to increase the concentration from 14 milligrams/mL to 25 milligrams/mL. Coding Level of Care Code Est Pt Level 4 (72585) Procedure Only Diagnoses Osteoarthritis of left knee M17.12 Postlaminectomy syndrome M96.1 Complex regional pain syndrome i of left lower limb G90.522
[2023-08-11 10:20] VITALS: BP 126/58; PULSE 97; RESP 16; O2SAT 96; BMI 27.5
== END 2023-08-11 10:56 | disposition home or self-care (01) ==
PROVIDERS: PCP Internal Medicine; Visit Provider Anesthesiology
DX: G90.522 Complex regional pain syndrome I of left lower limb (principal); M17.12 Unilateral primary osteoarthritis, left knee; M96.1 Postlaminectomy syndrome, not elsewhere classified; Z45.1 Encounter for adjustment and management of infusion pump
CPT/HCPCS: 62370

== ENCOUNTER → 2023-08-11 09:45 | Outpatient (BNVA) | payer OTHER, MEDICARE, MEDICAID, SELFPAY | PROVIDERS: PCP Internal Medicine; Visit Provider Anesthesiology | DX: Z45.1 Encounter for adjustment and management of infusion pump (principal); M17.12 Unilateral primary osteoarthritis, left knee; M96.1 Postlaminectomy syndrome, not elsewhere classified | CPT/HCPCS: 62370 ==

== ENCOUNTER 2023-09-09 10:26 | Outpatient (REF) | payer MEDICARE, MEDICAID, SELFPAY ==
--- NOTE | ~2023-09-09 | XR_ITS ---
EXAMINATION: XR KNEE, LEFT CLINICAL INFORMATION: Pain. COMPARISON: Prior radiographs, most recently 01/26/2021. TECHNIQUE: AP, lateral, tunnel, and sunrise views of the left knee. FINDINGS: There is mild bony demineralization. The lateral, medial and patellofemoral joint space compartments are well-maintained. There is trace tricompartment peripheral osteophyte formation. There is no fracture, dislocation or joint effusion. No foreign body is seen. XR/XR knee LT 4V IMPRESSION: There is minimal tricompartment peripheral osteophyte formation of the left knee. No fracture, dislocation or joint effusion is noted.
[2023-09-09 10:40] LABS: MANUAL DIFF FLAG NO
[2023-09-09 11:05] LABS: Basophils Absolute Auto 0.1 X10*3/uL (0.0-0.2); Basophils Percent Auto 1.1 % (0-2); Eosinophils Absolute Auto 0.2 X10*3/uL (0.0-0.4); Eosinophils Percent Auto 3.1 % (0-4); Hematocrit 40.5 % (37.0-47.0); Hemoglobin 13.1 g/dl (12.0-16.0); Imm Gran Abs Auto 0.02 X10*3/uL (0.00-0.03); Imm Gran Pct Auto 0.3 % (0.0-0.4); Lymphocytes Absolute Auto 1.2 X10*3/uL (1.2-4.9); Mean Corpuscular HGB Conc 32.3 g/dl (31.0-35.0); Mean Corpuscular Hemoglobin 33.5 pg (27.0-33.0); Mean Corpuscular Volume 103.6 fL (80.0-98.0); Monocytes Absolute Auto 0.5 X10*3/uL (0.1-1.2); Neutrophils Absolute Auto 4.5 x10*3/uL (2.0-8.3); Neutrophils Percent Auto 68.5 % (45-73); Platelet Count 274 X10*3/uL (160-400); Red Blood Count 3.91 X10*6/uL (4.20-5.50); Red Cell Distribution Width 13.7 % (11.0-16.0); White Blood Count 6.5 X10*3/uL (4.8-10.8)
[2023-09-09 11:41] LABS: Alanine Aminotransferase 12 U/L (0-31); Alkaline Phosphatase 91 U/L (39-117); Anion Gap 9 (12-20); Aspartate Amino Transferase 17 U/L (5-31); Bilirubin Total 0.3 mg/dL (0.0-1.0); Blood Urea Nitrogen 10 mg/dL (9-16); Carbon Dioxide 29 mmol/L (22-29); Chloride 108 mmol/L (96-108); Estimated Glomerular Filt Rate > 60; Glucose Random 75 mg/dL (60-115); Potassium 4.1 mmol/L (3.3-5.1); Sodium 142 mmol/L (135-145); Total Protein 6.8 g/dL (6.5-8.0)
[2023-09-09 12:06] LABS: Folate 8.4 ng/mL (> or = 4.0); Vitamin B12 1442 pg/mL (200-900)
[2023-09-09 12:16] LABS: Free T4 (Free Thyroxine) 1.12 ng/dL (0.71-1.85)
== END 2023-09-09 10:27 | disposition home or self-care (01) ==
LOC: HO.XRAY 10:26
PROVIDERS: Absent Provider Anesthesiology; PCP Internal Medicine; Visit Provider Internal Medicine
DX: B35.1 Tinea unguium (principal); M17.12 Unilateral primary osteoarthritis, left knee; E03.9 Hypothyroidism, unspecified
CPT/HCPCS: 36415; 73564; 80053; 82607; 82746; 84439; 84443; 85025

== ENCOUNTER 2023-10-27 10:30 | Outpatient (AMB) | payer OTHER, MEDICARE, MEDICAID, SELFPAY ==
--- NOTE | 2023-10-27 10:34 | MHC.OFFVIS ---
Intake Vital Signs 10/27/23 10:41 Height 5 ft 4 in Weight 180 lb BMI 30.9 BP 110/62 Blood Pressure Location Lt brachial Position Sitting Respiration 16 Pulse 83 Pulse Source Pulse Oximeter Pulse Oximetry (%) 94 Oxygen Delivery Method Room Air Intake Visit Reasons: ITDD REFILL/Confirmed Intake Note: patient comes in for pain pump medication refill. Reports pain level 10/10. Allergies No Known Allergies [No Known Allergies*] Allergy (Verified 10/28/23 09:36) HPI HPI Comments History of Present Illness Details Claudia is back in my office for pain pum adjustment. She is here for medication pump refill and dose adjustment. The the pump refill see as below. Last time she stated improvement with bupivacaine doses escalation. Today she denies the improvement of pain . the doses are as prior. We will continue doses escalation as below. Today we filled up her pump up her pump with bupivacaine 25 milligrams/mL. Simple continuous dose left to be 1.8 mg a day. She will receive 1 mg PTM 4 times a day once in 4 hours. DRG discussed, [employer] SCS was discussed. Next pump refill on or before 01/14/24. The concentration will be the same 25mg per ml 20 mls. Prior: under observation with Complex regional pain syndrome of the left lower extremity secondary to previous trauma.? She is on intrathecal drug delivery therapy she came today here for refill of the pain pump.? She reports that she does not feel pain alleviation too much from the pump.? She is telling me that gabapentin she takes orally helped her pain significantly.? She requests me to increase her dose to maximum 3600 mg a day.? I will do that today.? She requests me to refer her to [facility].? She feels numbness on the left side of her torso with administration of the bolus.? She feels that if she would have this sub served of the numbness in the lower extremity it would be helpful for her pain.? I offered her revision of the catheter with withdrawal of the catheter from T8 to T11-T12 with potential effect on more on the leg with this adjustment.? The [facility] Medical History Anxiety Cervical disc herniation Chronic pain syndrome Closed left ankle fracture Complex regional pain syndrome i of left lower limb Hypothyroidism Left leg paresthesias Opioid use disorder Postlaminectomy syndrome Primary osteoarthritis of left knee Renal lesion Tobacco abuse Surgical History H/O colonoscopy H/O lumbar discectomy History of left knee surgery Hx of cervical discectomy Left ACL tear Spinal stenosis Family History (Updated 03/23/23 @ 10:14 by Sonya Muniz) Father No problems noted. Mother Stroke Paternal Aunt Breast cancer Social History (Updated 12/25/21 @ 11:16 by Jessie Mcnally MD) Housing: House Are you a primary child care coordinator to a significant other at home: No Do you presently have visiting nurse or other home services: No Alcohol intake: current Alcohol intake frequency: a few times a week Alcohol type: wine Patient Tobacco Use Status: Current everyday Tobacco user Tobacco use type: Cigarette Cigarettes Per Day: 7 Years Smoked: 30 e-Cigarette/Vaping Use: Never Used Second Hand Smoke Exposure: Yes service: No Current occupational status: unemployed Cognitive needs: No Hearing needs: No Vision needs: No Review of Systems Const All systems reviewed & are unremarkable except as noted in HPI and below Physical Exam Vital Signs: Last Vital Signs Pulse 83 10/27/23 10:41 Resp 16 10/27/23 10:41 BP 110/62 10/27/23 10:41 Pulse Ox 94 10/27/23 10:41 Oxygen Delivery Method Room Air 10/27/23 10:41 BMI result Body Mass Index 30.9 Const General: healthy appearing and comfortable Chest Chest palpation & inspection: normal inspection of the chest Resp Effort & Inspection: normal respiratory effort, able to speak in complete sentences, normal respiratory pattern, no audible wheezes, no cough, respiratory effort not decreased and no grunting Cardio Jugular venous distension: no JVD Extrem General: Yes no pedal edema and Yes no calf tenderness Assessment & Plan Assessment & Plan (1) Osteoarthritis of left knee: Code(s): M17.12 - Unilateral primary osteoarthritis, left knee Plan: (2) Postlaminectomy syndrome: Code(s): M96.1 - Postlaminectomy syndrome, not elsewhere classified Plan: ? Intrathecal pump refill. THE PATIENT CAME TODAY in the office FOR THE CHANGE OF THE MEDICATION IN her PAIN PUMP. The name and date of were verified and informed consent was obtained for the procedure. ?The pump was interrogated and the residual amount of fluid was found to be 2.0 mL. SHE WAS POSITIONED prone on the bed AND THE AREA OF THE INTRATHECAL PUMP WAS PREPPED WITH CHLORAPREP. The fenestrated drape was sterilely applied over the area of the pump. Sterile gloves were worn and of the aspiration system was assembled containing 2 in 22 gauge noncoring needle, the needle was connected to extension tubing which was connected to the 20 cc sterile syringe. The pain pump was palpated under the skin in the patient's right buttock area. The needle was inserted through the skin and the central plug of the pain pump and fluid was aspirated. The clear fluid was going into the syringe the total amount of the fluid was 3.0 mL .. After that a new batch? of medication was obtained which was containing: bupivacaine 25 mg per ml. The admixture was made in 20 cc syringe prepared by [facility] compounding pharmacy. The syringe was connected to the bacterial filter, and then connected to the extension tubing. After that the medication in the syringe was slowly instilled into the pump with aspirations at 15 and 5 cc pozo.? The pump was reprogrammed for the doses of continues bupivacaine 1.8 milligrams per day as well as 1 mg PTM on demand doses every 4 hours no more than 4 times a day. (3) Complex regional pain syndrome i of left lower limb: Code(s): G90.522 - Complex regional pain syndrome I of left lower limb Plan: I am not sure if further doses escalations are warranted. On pump refill done in the summer she reported better pain relieve however today she reported that her pain is not better. I asked her if her consult in [facility] was of any satisfaction for her. She stated that they offered her a trial of [employer] SCS. I told her that she does not need to travel to [place] to have trial done, In the past she had an SCS trial with the leads in the thoracic position with me without any success. However SCS with electrodes in lumbar position inserted intralaminarly or transforaminally might result in the better pain control for this patient. Her pain syndrome could have a strong central component. Oral compounding pharmacy ketamine could be tried for this patient Coding Level of Care Code Est Pt Level 3 (46315) Procedure Only Diagnoses Osteoarthritis of left knee M17.12 Postlaminectomy syndrome M96.1 Complex regional pain syndrome i of left lower limb G90.522
[2023-10-27 10:41] VITALS: BP 110/62; PULSE 83; RESP 16; O2SAT 94; BMI 30.9
== END 2023-10-27 11:07 | disposition home or self-care (01) ==
PROVIDERS: PCP Internal Medicine; Visit Provider Anesthesiology
DX: Z45.1 Encounter for adjustment and management of infusion pump (principal); M17.12 Unilateral primary osteoarthritis, left knee; M96.1 Postlaminectomy syndrome, not elsewhere classified; G90.522 Complex regional pain syndrome I of left lower limb
CPT/HCPCS: 62370

== ENCOUNTER → 2023-10-27 10:30 | Outpatient (BNVA) | payer OTHER, MEDICARE, MEDICAID, SELFPAY | PROVIDERS: PCP Internal Medicine; Visit Provider Anesthesiology | DX: Z45.1 Encounter for adjustment and management of infusion pump (principal); M96.1 Postlaminectomy syndrome, not elsewhere classified; M17.12 Unilateral primary osteoarthritis, left knee | CPT/HCPCS: 62370 ==

== ENCOUNTER 2023-10-28 09:28 | Outpatient (AMB) | payer MEDICARE, MEDICAID, SELFPAY ==
--- NOTE | 2023-10-28 09:32 | A.OFFPC_ITS ---
Vital Signs 10/28/23 09:33 Height 5 ft 4 in Weight 165 lb 0.4 oz BMI 28.3 BP 100/62 Blood Pressure Location Lt brachial Position Sitting Pulse 83 Pulse Source Pulse Oximeter Pulse Oximetry (%) 98 Oxygen Delivery Method Room Air Intake Visit Reasons: CRPS Allergies No Known Allergies [No Known Allergies*] Allergy (Verified 10/28/23 09:36) Medication List - Last Reconciled 10/28/23 by Hayden Man MD [toilet seat risers and Raised toilet seat As directed] alprazolam 0.25 mg PO DAILY PRN 90 days alprazolam 0.25 mg PO DAILY ascorbate calcium (vitamin C) 500 mg PO DAILY cyanocobalamin (vitamin B-12) 1,000 mcg PO .QOD duloxetine 60 mg PO DAILY 90 days ferrous sulfate (FeroSul) 325 mg PO DAILY gabapentin 1,200 mg (2 x 600 mg) PO TID 90 days levothyroxine 88 mcg PO QAM magnesium oxide 400 mg PO DAILY miscellaneous medical supply 1 ea miscellaneous DAILY nortriptyline 20 mg (2 x 10 mg) PO BEDTIME 90 days pregabalin 50 mg PO TID [Raised toilet seat As directed] terbinafine HCl 250 mg PO DAILY 90 days [toilet seat risers As directed] triamcinolone acetonide 0.025% appl topical varenicline (Chantix Starting Month Box) PO PER PKG DIR varenicline (Chantix Continuing Month Box) 1 mg PO BID [Wrist SPlints As directed] Tobacco use date assessed: 10/28/23 HPI CRPS HPI Details 63-year-old overweight female smoker(not ed weight loss) with hypothyroidism and complex regional pain syndrome of the left lower limb continuing with pain management. Generalized anxiety disorder coming in for follow-up last seen July 2023. Mammogram is up-to-date colonoscopy is up-to-date patient presently follows up with pain management and is on an intrathecal pump [facility] Medical History Anxiety Cervical disc herniation Chronic pain syndrome Closed left ankle fracture Complex regional pain syndrome i of left lower limb Hypothyroidism Left leg paresthesias Opioid use disorder Postlaminectomy syndrome Primary osteoarthritis of left knee Renal lesion Tobacco abuse Surgical History H/O colonoscopy H/O lumbar discectomy History of left knee surgery Hx of cervical discectomy Left ACL tear Spinal stenosis Family History (Updated 03/23/23 @ 10:14 by Sonya Muniz) Father No problems noted. Mother Stroke Paternal Aunt Breast cancer Social History (Updated 12/25/21 @ 11:16 by Jessie Mcnally MD) Housing: House Are you a primary aged or disabled carer to a significant other at home: No Do you presently have visiting nurse or other home services: No Alcohol intake: current Alcohol intake frequency: a few times a week Alcohol type: wine Patient Tobacco Use Status: Current everyday Tobacco user Tobacco use type: Cigarette Cigarettes Per Day: 7 Years Smoked: 30 e-Cigarette/Vaping Use: Never Used Second Hand Smoke Exposure: Yes service: No Current occupational status: unemployed Cognitive needs: No Hearing needs: No Vision needs: No Questionnaire Thrive Questionnaire Date Thrive assessed: 03/23/23 AUDIT C Alcohol Use Questionnaire (AUDIT-C) 1. How often do you have a drink containing alcohol?: 2-3 times a week 2. How many drinks containing alcohol do you have on a typical day when you are drinking?: 1 or 2 3. How often do you have six or more drinks on one occasion?: Never Total Score: 3 JESSICA-7 AMB Questionnaire JESSICA-7 Date JESSICA - 7 assessed: 03/23/23 Source: Developed by Drs. Tai Viramontes, Sherlyn Garza, Stalin Guerra and colleagues, with an educational marcie from [employer]. Physical exam (Primary Care) Vital Signs: Last Vital Signs Pulse 83 10/28/23 09:33 BP 100/62 10/28/23 09:33 Pulse Ox 98 10/28/23 09:33 Oxygen Delivery Method Room Air 10/28/23 09:33 BMI result Body Mass Index 28.3 Tobacco/Smoking Status: Tobacco use Status Tobacco use date assessed 10/28/23 10/28/23 09:39 Patient Tobacco Use Status Current everyday Tobacco 10/28/23 09:39 Tobacco use type Cigarette 10/28/23 09:39 e-Cigarette/Vaping Use Never Used 10/28/23 09:39 Thrive Assessment: Date of Thrive Assessment Date Thrive assessed 05/24/23 12/29/23 09:39 Const General: alert; No acute distress Eyes Conjunctivae: conjunctivae normal Resp Auscultation: clear to auscultation bilaterally Cardio Rate: regular rate Rhythm: regular rhythm GI Inspection: Yes normal to inspection Extrem General: Yes normal to inspection and No edema Assessment and Plan Assessment & Plan (1) Overweight (BMI 25.0-29.9): Code(s): E66.3 - Overweight Plan: Noted to have lost a lot a weight. But wrong documentation. (2) Osteoarthritis of left knee: Code(s): M17.12 - Unilateral primary osteoarthritis, left knee Plan: Keep active (3) Postlaminectomy syndrome: Code(s): M96.1 - Postlaminectomy syndrome, not elsewhere classified Plan: Patient follows up with pain management on an intrathecal pump but states has not been helping. On pregabalin now (4) Tobacco abuse: Comment: Quitting discussed She declined Chantix or nicotine patch Code(s): Z72.0 - Tobacco use Plan: Strongly advised to stop smoking, will sent in for another round of the Chantix (5) Hypothyroidism: Code(s): E03.9 - Hypothyroidism, unspecified Qualifiers: Hypothyroidism type: acquired Qualified Code(s): E03.9 - Hypothyroidism, unspecified Plan: Continue with thyroid medication (6) Generalized anxiety disorder: Code(s): F41.1 - Generalized anxiety disorder Plan: counselling still not heard from referral . Continue with present medication (7) Onychomycosis: Code(s): B35.1 - Tinea unguium Plan: Nail is better but will need another round of the antifungal Medications: New varenicline (Chantix Continuing Month Box) 1 mg PO BID 60 tabs 0RF Z72.0 - Tobacco use Refilled varenicline (Chantix Starting Month Box) PO PER PKG DIR 53 ea 1RF Z72.0 - Tobacco use terbinafine HCl 250 mg PO DAILY 90 tabs 1RF 90 days B35.1 - Tinea unguium Coding Level of Care Code Est Pt Level 4 (47737) Diagnoses Overweight (BMI 25.0-29.9) E66.3 Osteoarthritis of left knee M17.12 Postlaminectomy syndrome M96.1 Tobacco abuse Z72.0 Acquired hypothyroidism E03.9 Hypothyroidism type: acquired Generalized anxiety disorder F41.1 Onychomycosis B35.1
[2023-10-28 09:33] VITALS: BP 100/62; PULSE 83; O2SAT 98; BMI 28.3
== END 2023-10-28 10:03 | disposition home or self-care (01) ==
PROVIDERS: PCP Internal Medicine; Visit Provider Internal Medicine
DX: E66.3 Overweight (principal); M17.12 Unilateral primary osteoarthritis, left knee; M96.1 Postlaminectomy syndrome, not elsewhere classified; Z72.0 Tobacco use; E03.9 Hypothyroidism, unspecified; F41.1 Generalized anxiety disorder; B35.1 Tinea unguium
CPT/HCPCS: 99214

== ENCOUNTER 2024-01-12 10:49 | Outpatient (AMB) | payer OTHER, MEDICARE, MEDICAID, SELFPAY ==
--- NOTE | 2024-01-12 11:09 | A.OFFVIS_ITS ---
Intake Vital Signs 01/12/24 11:57 Height 5 ft 4 in Weight 165 lb BMI 28.3 BP 130/62 Blood Pressure Location Lt brachial Position Sitting Respiration 14 Pulse 104 H Pulse Source Pulse Oximeter Pulse Oximetry (%) 95 Oxygen Delivery Method Room Air Intake Visit Reasons: ITDD REFILL Intake Note: Patient comes in for intrathecal medication refill. Reports pain 04/09. Allergies No Known Allergies [No Known Allergies*] Allergy (Verified 01/12/24 11:58) HPI HPI Comments History of Present Illness Details Claudia is back in my office for she reports that her pain on current doses of the bupivacaine still exists, it is more tolerable for her. She feels significant pain decreased when she applies her PTM doses. See the description of the pump refill as below. Further escalation of the doses was not discussed. Next pump refill will be scheduled according to her records before 03/31/2024 Prior: under observation with Complex regional pain syndrome of the left lower extremity secondary to previous trauma.? She is on intrathecal drug delivery therapy she came today here for refill of the pain pump.? She reports that she does not feel pain alleviation too much from the pump.? She is telling me that gabapentin she takes orally helped her pain significantly.? She requests me to increase her dose to maximum 3600 mg a day.? I will do that today.? She requests me to refer her to [facility].? She feels numbness on the left side of her torso with administration of the bolus.? She feels that if she would have this sub served of the numbness in the lower extremity it would be helpful for her pain.? I offered her revision of the catheter with withdrawal of the catheter from T8 to T11-T12 with potential eff ect on more on the leg with this adjustment.? The patient wanted to [facility] to perform this procedur [facility] Medical History Anxiety Cervical disc herniation Chronic pain syndrome Closed left ankle fracture Complex regional pain syndrome i of left lower limb Hypothyroidism Left leg paresthesias Opioid use disorder Postlaminectomy syndrome Primary osteoarthritis of left knee Renal lesion Tobacco abuse Surgical History H/O colonoscopy H/O lumbar discectomy History of left knee surgery Hx of cervical discectomy Left ACL tear Spinal stenosis Family History (Updated 03/23/23 @ 10:14 by Sonya Muniz) Father No problems noted. Mother Stroke Paternal Aunt Breast cancer Social History (Updated 12/25/21 @ 11:16 by Jessie Mcnally MD) Housing: House Are you a primary primary care physician to a significant other at home: No Do you presently have visiting nurse or other home services: No Alcohol intake: current Alcohol intake frequency: a few times a week Alcohol type: wine Patient Tobacco Use Status: Current everyday Tobacco user Tobacco use type: Cigarette Cigarettes Per Day: 7 Years Smoked: 30 e-Cigarette/Vaping Use: Never Used Second Hand Smoke Exposure: Yes service: No Current occupational status: unemployed Cognitive needs: No Hearing needs: No Vision needs: No Review of Systems Const All systems reviewed & are unremarkable except as noted in HPI and below Physical Exam Vital Signs: Last Vital Signs Pulse 104 H 01/12/24 11:57 Resp 14 01/12/24 11:57 BP 130/62 01/12/24 11:57 Pulse Ox 95 01/12/24 11:57 Oxygen Delivery Method Room Air 01/12/24 11:57 BMI result Body Mass Index 28.3 Const General: healthy appearing and comfortable Chest Chest palpation & inspection: normal inspection of the chest Resp Effort & Inspection: normal respiratory effort, able to speak in complete sentences, normal respiratory pattern, no audible wheezes, no cough, respiratory effort not decreased and no grunting Cardio Jugular venous distension: no JVD Extrem General: Yes no pedal edema and Yes no calf tenderness Assessment & Plan Assessment & Plan (1) Osteoarthritis of left knee: Code(s): M17.12 - Unilateral primary osteoarthritis, left knee Plan: (2) Postlaminectomy syndrome: Code(s): M96.1 - Postlaminectomy syndrome, not elsewhere classified Plan: ? Intrathecal pump refill. THE PATIENT CAME TODAY in the office FOR THE CHANGE OF THE MEDICATION IN her PAIN PUMP. The name and date of were verified and informed consent was obtained for the procedure. ?The pump was interrogated and the residual amount of fluid was found to be 4.9 mL. SHE WAS POSITIONED prone on the bed AND THE AREA OF THE INTRATHECAL PUMP WAS PREPPED WITH CHLORAPREP. The fenestrated drape was sterilely applied over the area of the pump. Sterile gloves were worn and of the aspiration system was assembled containing 2 in 22 gauge noncoring needle, the needle was connected to extension tubing which was connected to the 20 cc sterile syringe. The pain pump was palpated under the skin in the patient's right buttock area. The needle was inserted through the skin and the central plug of the pain pump and fluid was aspirated. The clear fluid was going into the syringe the total amount of the fluid was 5.5 mL .. After that a new batch? of medication was obtained which was containing: bupivacaine 25 mg per ml. The admixture was made in 20 cc syringe prepared by [facility] compounding pharmacy. The syringe was connected to the bacterial filter, and then connected to the extension tubing. After that the medication in the syringe was slowly instilled into the pump with aspirations at 15 and 5 cc pozo.? The pump was reprogrammed for the doses of continues bupivacaine 1.802 milligrams per day as well as 1 mg PTM on demand doses every 4 hours no more than 4 times a day. (3) Complex regional pain syndrome i of left lower limb: Code(s): G90.522 - Complex regional pain syndrome I of left lower limb Plan: Patient complains on moderate pain and her pain is affected by application of the PTM. She reports better mobility. She reports better activities of daily living. In fact today she brought her 3 years old granddaughter with her in tug and she appears to be comfortable taking care of child. I will keep doses as above. Next appointment on before 03/31/2024 Prior: While in consult with [facility] she was offered a trial of [employer] SCS. I told her that she does not need to travel to [place] to have trial done, In the past she had an SCS trial with the leads in the thoracic position with me without any success. However SCS with electrodes in lumbar position inserted intralaminarly or transforaminally might result in the better pain control for this patient. Her pain syndrome could have a strong central component. Oral compounding pharmacy ketamine could be tried for this patient. Coding Level of Care Code Est Pt Level 3 (16799) Procedure Only Diagnoses Osteoarthritis of left knee M17.12 Postlaminectomy syndrome M96.1 Complex regional pain syndrome i of left lower limb G90.522
[2024-01-12 11:57] VITALS: BP 130/62; PULSE 104; RESP 14; O2SAT 95; BMI 28.3
== END 2024-01-12 11:29 | disposition home or self-care (01) ==
PROVIDERS: PCP Internal Medicine; Visit Provider Anesthesiology
DX: M17.12 Unilateral primary osteoarthritis, left knee (principal); M96.1 Postlaminectomy syndrome, not elsewhere classified; G90.522 Complex regional pain syndrome I of left lower limb; Z45.1 Encounter for adjustment and management of infusion pump
CPT/HCPCS: 62370; 99213

== ENCOUNTER → 2024-01-12 10:49 | Outpatient (BNVA) | payer OTHER, MEDICARE, MEDICAID, SELFPAY | PROVIDERS: PCP Internal Medicine; Visit Provider Anesthesiology | DX: Z45.1 Encounter for adjustment and management of infusion pump (principal); M96.1 Postlaminectomy syndrome, not elsewhere classified; M17.12 Unilateral primary osteoarthritis, left knee | CPT/HCPCS: 62370; 99212 ==

== ENCOUNTER 2024-01-31 09:49 | Outpatient (AMB) | payer MEDICARE, MEDICAID, SELFPAY ==
--- NOTE | 2024-01-31 09:50 | MHC.PC.OV ---
Vital Signs 01/31/24 09:52 Height 5 ft 4 in Weight 174 lb BMI 29.9 BP 110/60 Blood Pressure Location Lt brachial Position Sitting Pulse 91 Pulse Source Pulse Oximeter Pulse Oximetry (%) 98 Oxygen Delivery Method Room Air Intake Visit Reasons: JESSICA, hypothyroid Allergies No Known Allergies [No Known Allergies*] Allergy (Verified 01/12/24 11:58) Medication List - Last Reconciled 01/31/24 by Hayden Man MD [toilet seat risers and Raised toilet seat As directed] alprazolam 0.25 mg PO DAILY ascorbate calcium (vitamin C) 500 mg PO DAILY clotrimazole 1% 1 appl topical BID 4 weeks cyanocobalamin (vitamin B-12) 1,000 mcg PO .QOD duloxetine 60 mg PO DAILY 90 days gabapentin 1,200 mg (2 x 600 mg) PO TID 90 days levothyroxine 88 mcg PO QAM magnesium oxide 400 mg PO DAILY miscellaneous medical supply 1 ea miscellaneous DAILY pregabalin 50 mg PO TID [Raised toilet seat As directed] terbinafine HCl 250 mg PO DAILY 90 days [toilet seat risers As directed] triamcinolone acetonide 0.025% appl topical varenicline (Chantix Starting Month Box) PO PER PKG DIR varenicline (Chantix Continuing Month Box) 1 mg PO BID [Wrist SPlints As directed] Tobacco use date assessed: 01/31/24 Dental Screening Dental Screen Date: 07/13/23 HPI JESSICA, hypothyroid HPI Details 63-year-old overweight female smoker with a history of left knee osteoarthritis has a history of post laminectomy syndrome hypothyroidism generalized anxiety disorder last seen in September 2023. Patient's mammogram is due in January colonoscopy is up-to-date. Patient follows up with pain management with intrathecal pump refill.Hooray patient has stopped smoking patient is being seen by the physician in [place] and planned on a procedure on the back. Otherwise noted some rash on the skin again has just finished terbinafine but the rash is coming. Question of eczema versus fungal infection. Clotrimazole prescription sent and will be seeing Dermatology. Patient thinks the the pregabalin is helping with the pain. [facility] Medical History (Updated 01/31/24 @ 10:06 by Hayden Man MD) Breast cancer screening by mammogram Generalized anxiety disorder Left leg paresthesias Bacterial vaginosis Anxiety Opioid use disorder Chronic pain syndrome Postlaminectomy syndrome Complex regional pain syndrome i of left lower limb Primary osteoarthritis of left knee Tobacco abuse Renal lesion Closed left ankle fracture Cervical disc herniation Hypothyroidism Surgical History Hx of cervical discectomy H/O colonoscopy H/O lumbar discectomy Spinal stenosis History of left knee surgery Left ACL tear Family History (Updated 03/23/23 @ 10:14 by BRITANY Alaniz) Father No problems noted. Mother Stroke Paternal Aunt Breast cancer Social History (Updated 12/25/21 @ 11:16 by Jessie Mcnally MD) Housing: House Are you a primary director of home care hospice to a significant other at home: No Do you presently have visiting nurse or other home services: No Alcohol intake: current Alcohol intake frequency: a few times a week Alcohol type: wine Patient Tobacco Use Status: Current everyday Tobacco user Tobacco use type: Cigarette Cigarettes Per Day: 7 Years Smoked: 30 e-Cigarette/Vaping Use: Never Used Second Hand Smoke Exposure: Yes service: No Current occupational status: unemployed Cognitive needs: No Hearing needs: No Vision needs: No Questionnaire PHQ-9 Over the last 2 weeks, how often have you been bothered by any of the following problems? 1. Little interest or pleasure in doing things: not at all 2. Feeling down, depressed, or hopeless: not at all 3. Trouble falling or staying asleep, or sleeping too much: not at all 4. Feeling tired or having little energy: not at all 5. Poor appetite or overeating: not at all 6. Feeling bad about yourself - or that you are a failure or have let yourself or your family down: not at all 7. Trouble concentrating on things, such as reading the newspaper or watching television: not at all 8. Moving or speaking so slowly that other people could have noticed. Or the opposite - being so fidgety or restless that you have been moving around a lot more than usual: not at all 9. Thoughts that you would be better off or of hurting yourself in some way: not at all Total score: 0 Depression Screening Interpretation: Negative Depression Screening Done: Yes Source: Developed by Drs. Tai Viramontes, Sherlyn Garza, Stalin Guerra and colleagues, with an educational marcie from [employer]. Thrive Questionnaire Date Thrive assessed: 01/31/24 AUDIT C Alcohol Use Questionnaire (AUDIT-C) 1. How often do you have a drink containing alcohol?: 2-3 times a week 2. How many drinks containing alcohol do you have on a typical day when you are drinking?: 1 or 2 3. How often do you have six or more drinks on one occasion?: Never Total Score: 3 JESSICA-7 AMB Questionnaire JESSICA-7 Date JESSICA - 7 assessed: 01/31/24 Source: Developed by Drs. Tai Viramontes, Sherlyn Garza, Stalin Guerra and colleagues, with an educational marcie from [employer]. Physical exam (Primary Care) Vital Signs: Oxygen Delivery Method Room Air 01/31/24 09:52 BMI result Body Mass Index 29.9 Tobacco/Smoking Status: Tobacco use Status Tobacco use date assessed 10/28/23 01/12/24 11:30 Patient Tobacco Use Status Current everyday Tobacco 01/12/24 11:30 Tobacco use type Cigarette 01/12/24 11:30 e-Cigarette/Vaping Use Never Used 01/12/24 11:30 Depression Screening Interpretation: Negative Thrive Assessment: Date of Thrive Assessment Date Thrive assessed 03/23/23 01/12/24 11:30 Const General: alert; No acute distress Eyes Conjunctivae: conjunctivae normal Resp Auscultation: clear to auscultation bilaterally Cardio Rate: regular rate Rhythm: regular rhythm GI Inspection: Yes normal to inspection Extrem General: Yes normal to inspection and No edema Assessment and Plan Assessment & Plan (1) Overweight (BMI 25.0-29.9): Code(s): E66.3 - Overweight Plan: Diet and exercise (2) Generalized anxiety disorder: Code(s): F41.1 - Generalized anxiety disorder Plan: Continue with present medication as needed as well as duloxetine 60 mg once a day (3) Postlaminectomy syndrome: Code(s): M96.1 - Postlaminectomy syndrome, not elsewhere classified Plan: Continue to follow-up with pain management. (4) Tobacco abuse: Comment: Quitting discussed She declined Chantix or nicotine patch stopped 10/2023 Code(s): Z72.0 - Tobacco use Plan: Strongly advised to stop!- stopped 10/2023 (5) Hypothyroidism: Code(s): E03.9 - Hypothyroidism, unspecified Qualifiers: Hypothyroidism type: acquired Qualified Code(s): E03.9 - Hypothyroidism, unspecified Plan: Continue with thyroid medication August last blood work. Medications: New clotrimazole 1% 1 appl topical BID 4 weeks 45 grams 0RF Discontinued nortriptyline Discontinued Reason: Doctor's Order 20 mg (2 x 10 mg) PO BEDTIME 90 days 180 caps 0RF alprazolam Discontinued Reason: Duplicate 0.25 mg PO DAILY 90 days PRN 90 tabs 0RF anxiety F41.9 - Anxiety disorder, unspecified Coding Level of Care Code Est Pt Level 4 (75196) Diagnoses Overweight (BMI 25.0-29.9) E66.3 Generalized anxiety disorder F41.1 Postlaminectomy syndrome M96.1 Tobacco abuse Z72.0 Acquired hypothyroidism E03.9 Hypothyroidism type: acquired
[2024-01-31 09:52] VITALS: BP 110/60; PULSE 91; O2SAT 98; BMI 29.9
== END 2024-01-31 10:18 | disposition home or self-care (01) ==
PROVIDERS: PCP Internal Medicine; Visit Provider Internal Medicine
DX: E66.3 Overweight (principal); F41.1 Generalized anxiety disorder; M96.1 Postlaminectomy syndrome, not elsewhere classified; Z72.0 Tobacco use; E03.9 Hypothyroidism, unspecified
CPT/HCPCS: 99214

== ENCOUNTER 2024-02-15 09:54 | Outpatient (REF) | payer MEDICARE, MEDICAID, SELFPAY | END 2024-02-15 09:55 | disposition home or self-care (01) | LOC: HO.MAMMO 09:54 | PROVIDERS: PCP Internal Medicine; Visit Provider Internal Medicine | DX: Z12.31 Encounter for screening mammogram for malignant neoplasm of breast (principal) | CPT/HCPCS: 77063; 77067 ==

== ENCOUNTER → 2024-02-15 10:00 | Outpatient (BNV) | payer MEDICARE, MEDICAID, SELFPAY | PROVIDERS: PCP Internal Medicine; Visit Provider Radiology Diagnostic Radiology | DX: Z12.31 Encounter for screening mammogram for malignant neoplasm of breast (principal) | CPT/HCPCS: 77063; 77067 ==

== ENCOUNTER 2024-04-02 11:00 | Outpatient (AMB) | payer OTHER, MEDICARE, MEDICAID, SELFPAY ==
[2024-04-02 11:09] VITALS: BP 117/72; PULSE 86; RESP 18; O2SAT 97; BMI 29.2
--- NOTE | 2024-04-02 11:09 | A.OFFVIS_ITS ---
Vital Signs 04/02/24 11:09 Height 5 ft 4 in Weight 170 lb BMI 29.2 BP 117/72 Blood Pressure Location Lt brachial Position Sitting Respiration 18 Pulse 86 Pulse Source Pulse Oximeter Pulse Oximetry (%) 97 Oxygen Delivery Method Room Air Intake Visit Reasons: Medication Discussion Allergies No Known Allergies [No Known Allergies*] Allergy (Verified 01/12/24 11:58) HPI Comments Details: Claudia is back in my office f she against started to complain on severe intractable pain in the left lower extremity. She has on the pain pump. She reports that pain pump does not help her pain. She has this idea that she received sciatic nerve block at [facility] and that injection did not help her pain. We will send a request to [facility] to obtain the name of the injections she received at that organization. We need to lester at the same time the medication of this patient to refill her pump. Prior: under observation with Complex regional pain syndrome of the left lower extremity secondary to previous trauma.? She is on intrathecal drug delivery she came today here for refill of the pain pump.? She reports that she does not feel pain alleviation too much from the pump.? She is telling me that gabapentin she takes orally helped her pain significantly.? She requests me to increase her dose to maximum 3600 mg a day.? I will do that today.? She requests me to refer her to [facility] Pain Medicine consult.? She feels numbness on the left side of her torso with administration of the bolus.? She feels that if she would have this sub served of the numbness in the lower extremity it would be helpful for her pain.? I offered her revision of the catheter with withdrawal of the catheter from T8 to T11-T12 with potential effect on more on the leg with this adjustment.? The patient wanted to go to the center of Excellence to perform this procedure, [facility] Medical History (Updated 01/31/24 @ 10:06 by Hayden Man MD) Breast cancer screening by mammogram Generalized anxiety disorder Left leg paresthesias Bacterial vaginosis Anxiety Opioid use disorder Chronic pain syndrome Postlaminectomy syndrome Complex regional pain syndrome i of left lower limb Primary osteoarthritis of left knee Tobacco abuse Renal lesion Closed left ankle fracture Cervical disc herniation Hypothyroidism Surgical History Hx of cervical discectomy H/O colonoscopy H/O lumbar discectomy Spinal stenosis History of left knee surgery Left ACL tear Family History (Updated 03/23/23 @ 10:14 by BRITANY Alaniz) Father No problems noted. Mother Stroke Paternal Aunt Breast cancer Social History (Updated 12/25/21 @ 11:16 by Jessie Mcnally MD) Housing: House Are you a primary administrator health care facility to a significant other at home: No Do you presently have visiting nurse or other home services: No Alcohol intake: current Alcohol intake frequency: a few times a week Alcohol type: wine Patient Tobacco Use Status: Current everyday Tobacco user Tobacco use type: Cigarette Cigarettes Per Day: 7 Years Smoked: 30 e-Cigarette/Vaping Use: Never Used Second Hand Smoke Exposure: Yes service: No Current occupational status: unemployed Cognitive needs: No Hearing needs: No Vision needs: No Review of Systems Const All systems reviewed & are unremarkable except as noted in HPI and below Physical Exam Vital Signs: Last Vital Signs Pulse 86 04/02/24 11:09 Resp 18 04/02/24 11:09 BP 117/72 04/02/24 11:09 Pulse Ox 97 04/02/24 11:09 Oxygen Delivery Method Room Air 04/02/24 11:09 BMI result Body Mass Index 29.2 Const General: healthy appearing and comfortable Chest Chest palpation & inspection: normal inspection of the chest Resp Effort & Inspection: normal respiratory effort, able to speak in complete sentences, normal respiratory pattern, no audible wheezes, no cough, respiratory effort not decreased and no grunting Cardio Jugular venous distension: no JVD Extrem General: Yes no pedal edema and Yes no calf tenderness Assessment & Plan Assessment & Plan (1) Osteoarthritis of left knee: Code(s): M17.12 - Unilateral primary osteoarthritis, left knee Category: Medical Plan: (2) Postlaminectomy syndrome: Code(s): M96.1 - Postlaminectomy syndrome, not elsewhere classified Category: Medical Plan: (3) Complex regional pain syndrome i of left lower limb: Code(s): G90.522 - Complex regional pain syndrome I of left lower limb Category: Medical Plan: The patient is running out of the medicine and we need to lester her medication into fill up her pump. Meanwhile we will be asking [facility] to send us the injections she received. If there is no possible injection in the sciatic nerves were done to the patient I will schedule her for ultrasound-guided sciatic nerve block. Prior: While in consult with [facility] she was offered a trial of Ecorithm SCS. I told her that she does not need to travel to [place] to have trial done, In the past she had an SCS trial with the leads in the thoracic position with me without any success. However SCS with electrodes in lumbar position inserted intralaminarly or transforaminally might result in the better pain control for this patient. Her pain syndrome could have a strong central component. Oral compounding pharmacy ketamine could be tried for this patient. Coding Level of Care Code Est Pt Level 3 (11722) Diagnoses Osteoarthritis of left knee M17.12 Postlaminectomy syndrome M96.1 Complex regional pain syndrome i of left lower limb G90.522
== END 2024-04-02 12:06 | disposition home or self-care (01) ==
PROVIDERS: PCP Internal Medicine; Visit Provider Anesthesiology
DX: M17.12 Unilateral primary osteoarthritis, left knee (principal); M96.1 Postlaminectomy syndrome, not elsewhere classified; G90.522 Complex regional pain syndrome I of left lower limb
CPT/HCPCS: 99213

== ENCOUNTER → 2024-04-02 11:00 | Outpatient (BNVA) | payer OTHER, MEDICARE, MEDICAID, SELFPAY | PROVIDERS: PCP Internal Medicine; Visit Provider Anesthesiology | DX: M17.12 Unilateral primary osteoarthritis, left knee (principal); M96.1 Postlaminectomy syndrome, not elsewhere classified; G90.522 Complex regional pain syndrome I of left lower limb | CPT/HCPCS: 99212 ==

== ENCOUNTER 2024-04-03 14:30 | Outpatient (AMB) | payer OTHER, MEDICARE, MEDICAID, SELFPAY ==
[2024-04-03 14:35] VITALS: BP 116/68; PULSE 88; RESP 16; O2SAT 99; BMI 29.2
--- NOTE | 2024-04-03 14:35 | MHC.OFFVIS ---
Vital Signs 04/03/24 14:35 Height 5 ft 4 in Weight 170 lb BMI 29.2 BP 116/68 Blood Pressure Location Lt brachial Position Sitting Respiration 16 Pulse 88 Pulse Source Pulse Oximeter Pulse Oximetry (%) 99 Oxygen Delivery Method Room Air Intake Visit Reasons: ITDD REFILL Allergies No Known Allergies [No Known Allergies*] Allergy (Verified 01/12/24 11:58) HPI Comments Details: Claudia is back in my office f she complaining on intractable pain in the left lower extremity. She reports that pain pump does not help her pain. She denies any help from intrathecal pain pump. She told me today that back in [facility] she was getting sympathetic blockade lumbar spine as well as epidural steroid injection. None of those were helpful for her pain. She was subject of spinal cord stimulator trial in the past which was not working for her. She is receiving pain pump which has only bupivacaine as the acting medicine. Multiple opioid and non opioid medications including morphine and fentanyl were tried for her as well as clonidine. None of those medications in the pump helping her pain. Her pain is on posterior surface of the hip and the posterior surface of the lower leg with radiation to the lateral surface of the foot. As a last resort to treat her pain I offered her diagnostic sciatic nerve block. If this may alleviate her pain consideration will be given for sprint PNS versus curonix PNS. The patient came today to refill her pain pump. The pain pump refill is as below. Prior: under observation with Complex regional pain syndrome of the left lower extremity secondary to previous trauma.? She is on intrathecal drug delivery therapy she came today here for refill of the pain pump.? She reports that she does not feel pain alleviation too much from the pump.? She is telling me that gabapentin she takes orally helped her pain significantly.? She requests me to increase her dose to maximum 3600 mg a day.? I will do that today.? She requests me to refer her to [facility] Pain Medicine consult.? She feels numbness on the left side of her torso with administration of the bolus.? She feels that if she would have this sub served of the numbness in the lower extremity it would be helpful for her pain.? I offered her revision of the catheter with withdrawal of the catheter from T8 to T11-T12 with potential effect on more on the leg with this adjustment.? The patient wanted to go to the center of Excellence to perform this procedure, [facility] Medical History (Updated 01/31/24 @ 10:06 by Hayden Man MD) Breast cancer screening by mammogram Generalized anxiety disorder Left leg paresthesias Bacterial vaginosis Anxiety Opioid use disorder Chronic pain syndrome Postlaminectomy syndrome Complex regional pain syndrome i of left lower limb Primary osteoarthritis of left knee Tobacco abuse Renal lesion Closed left ankle fracture Cervical disc herniation Hypothyroidism Surgical History Hx of cervical discectomy H/O colonoscopy H/O lumbar discectomy Spinal stenosis History of left knee surgery Left ACL tear Family History (Updated 03/23/23 @ 10:14 by BRITANY Alaniz) Father No problems noted. Mother Stroke Paternal Aunt Breast cancer Social History (Updated 12/25/21 @ 11:16 by Jessie Mcnally MD) Housing: House Are you a primary md do resident urgent care to a significant other at home: No Do you presently have visiting nurse or other home services: No Alcohol intake: current Alcohol intake frequency: a few times a week Alcohol type: wine Patient Tobacco Use Status: Current everyday Tobacco user Tobacco use type: Cigarette Cigarettes Per Day: 7 Years Smoked: 30 e-Cigarette/Vaping Use: Never Used Second Hand Smoke Exposure: Yes service: No Current occupational status: unemployed Cognitive needs: No Hearing needs: No Vision needs: No Review of Systems Const All systems reviewed & are unremarkable except as noted in HPI and below Physical Exam Vital Signs: Last Vital Signs Pulse 88 04/03/24 14:35 Resp 16 04/03/24 14:35 BP 116/68 04/03/24 14:35 Pulse Ox 99 04/03/24 14:35 Oxygen Delivery Method Room Air 04/03/24 14:35 BMI result Body Mass Index 29.2 Const General: healthy appearing and comfortable Chest Chest palpation & inspection: normal inspection of the chest Resp Effort & Inspection: normal respiratory effort, able to speak in complete sentences, normal respiratory pattern, no audible wheezes, no cough, respiratory effort not decreased and no grunting Cardio Jugular venous distension: no JVD Extrem General: Yes no pedal edema and Yes no calf tenderness Assessment & Plan Assessment & Plan (1) Osteoarthritis of left knee: Code(s): M17.12 - Unilateral primary osteoarthritis, left knee Category: Medical Plan: (2) Postlaminectomy syndrome: Code(s): M96.1 - Postlaminectomy syndrome, not elsewhere classified Category: Medical Plan: ? Intrathecal pump refill. THE PATIENT CAME TODAY in the office FOR THE CHANGE OF THE MEDICATION IN her PAIN PUMP. The name and date of were verified and informed consent was obtained for the procedure. ?The pump was interrogated and the residual amount of fluid was found to be 0.8 mL. SHE WAS POSITIONED prone on the bed AND THE AREA OF THE INTRATHECAL PUMP WAS PREPPED WITH CHLORAPREP. The fenestrated drape was sterilely applied over the area of the pump. Sterile gloves were worn and of the aspiration system was assembled containing 2 in 22 gauge noncoring needle, the needle was connected to extension tubing which was connected to the 20 cc sterile syringe. The pain pump was palpated under the skin in the patient's right buttock area. The needle was inserted through the skin and the central plug of the pain pump and fluid was aspirated. The clear fluid was going into the syringe the total amount of the fluid was 2.0 mL .. After that a new batch? of medication was obtained which was containing: bupivacaine 25 mg per ml. The admixture was made in 20 cc syringe prepared by [facility] compounding pharmacy. The syringe was connected to the bacterial filter, and then connected to the extension tubing. After that the medication in the syringe was slowly instilled into the pump with aspirations at 15 and 5 cc pozo.? The pump was reprogrammed for the doses of continues bupivacaine 1.802 milligrams per day as well as 1 mg PTM on demand doses every 4 hours no more than 4 times a day. (3) Complex regional pain syndrome i of left lower limb: Code(s): G90.522 - Complex regional pain syndrome I of left lower limb Category: Medical Plan: I will schedule this patient for ultrasound-guided left-sided sciatic nerve block. If this will not help the patient pain I will continue with the pain pump with escalation of the bupivacaine. If this will help the pain I will consider sprint PNS versus cure on X PNS for this patient. Coding Level of Care Code Est Pt Level 3 (72558) Procedure Only Diagnoses Osteoarthritis of left knee M17.12 Postlaminectomy syndrome M96.1 Complex regional pain syndrome i of left lower limb G90.522
== END 2024-04-03 15:10 | disposition home or self-care (01) ==
LOC: HO.PMCPRC 14:30
PROVIDERS: PCP Internal Medicine; Visit Provider Anesthesiology
DX: M17.12 Unilateral primary osteoarthritis, left knee (principal); M96.1 Postlaminectomy syndrome, not elsewhere classified; G90.522 Complex regional pain syndrome I of left lower limb; Z45.1 Encounter for adjustment and management of infusion pump
CPT/HCPCS: 62370; 99213

== ENCOUNTER → 2024-04-03 14:30 | Outpatient (BNVA) | payer OTHER, MEDICARE, MEDICAID, SELFPAY | PROVIDERS: PCP Internal Medicine; Visit Provider Anesthesiology | DX: M17.12 Unilateral primary osteoarthritis, left knee (principal); M96.1 Postlaminectomy syndrome, not elsewhere classified; Z45.1 Encounter for adjustment and management of infusion pump | CPT/HCPCS: 62370; 99212 ==

== ENCOUNTER 2024-05-29 07:13 | Outpatient (REF) | payer OTHER, MEDICARE, MEDICAID, SELFPAY | END 2024-05-29 07:14 | disposition home or self-care (01) | LOC: CF 07:13 | PROVIDERS: Visit Provider Anesthesiology | DX: G90.522 Complex regional pain syndrome I of left lower limb (principal); M17.12 Unilateral primary osteoarthritis, left knee; G62.9 Polyneuropathy, unspecified | CPT/HCPCS: 64455; J2795 ==

== ENCOUNTER 2024-05-29 10:58 | Outpatient (AMB) | payer OTHER, MEDICARE, MEDICAID, SELFPAY ==
[2024-05-29 11:02] VITALS: BP 117/60; PULSE 84; RESP 16; O2SAT 98
--- NOTE | 2024-05-29 11:02 | A.OFFVIS_ITS ---
Vital Signs 05/29/24 11:02 05/29/24 11:51 BP 117/60 112/59 L Blood Pressure Location Rt brachial Rt brachial Position Sitting Sitting Respiration 16 15 Pulse 84 83 Pulse Source Pulse Oximeter Pulse Oximeter Pulse Oximetry (%) 98 98 Oxygen Delivery Method Room Air Room Air Comment Pre-op Post-op Intake Visit Reasons: DX. us guided left-sided sciatic nerve block. Allergies No Known Allergies [No Known Allergies*] Allergy (Verified 01/12/24 11:58) PFSH Medical History (Updated 01/31/24 @ 10:06 by Hayden Man MD) Breast cancer screening by mammogram Generalized anxiety disorder Left leg paresthesias Bacterial vaginosis Anxiety Opioid use disorder Chronic pain syndrome Postlaminectomy syndrome Complex regional pain syndrome i of left lower limb Primary osteoarthritis of left knee Tobacco abuse Renal lesion Closed left ankle fracture Cervical disc herniation Hypothyroidism Surgical History Hx of cervical discectomy H/O colonoscopy H/O lumbar discectomy Spinal stenosis History of left knee surgery Left ACL tear Family History (Updated 03/23/23 @ 10:14 by BRITANY Alaniz) Father No problems noted. Mother Stroke Paternal Aunt Breast cancer Social History (Updated 12/25/21 @ 11:16 by Jessie Mcnally MD) Housing: House Are you a primary career services representative to a significant other at home: No Do you presently have visiting nurse or other home services: No Alcohol intake: current Alcohol intake frequency: a few times a week Alcohol type: wine Patient Tobacco Use Status: Current everyday Tobacco user Tobacco use type: Cigarette Cigarettes Per Day: 7 Years Smoked: 30 e-Cigarette/Vaping Use: Never Used Second Hand Smoke Exposure: Yes service: No Current occupational status: unemployed Cognitive needs: No Hearing needs: No Vision needs: No Physical Exam Vital Signs: Last Vital Signs Pulse 83 05/29/24 11:51 Resp 15 05/29/24 11:51 BP 112/59 L 05/29/24 11:51 Pulse Ox 98 05/29/24 11:51 Oxygen Delivery Method Room Air 05/29/24 11:51 Assessment & Plan Assessment & Plan (1) Peripheral neuropathy: Code(s): G62.9 - Polyneuropathy, unspecified Category: Medical (2) Complex regional pain syndrome i of left lower limb: Code(s): G90.522 - Complex regional pain syndrome I of left lower limb Category: Medical Plan Left diagnostic ultrasound-guided sciatic nerve block. Informed consent was explained thoroughly to the patient. All questions about benefits and risks for the procedure were answered. Patient came to the examination room and was positioned prone on the examination bed with the pillow under the pelvis. Time out was performed delineating name and of the patient, allergies and the nature of the procedure. The lower left back and left buttocks of the patient were prepped with ChloraPrep prepped and draped with sterile utility towels. Sterilely draped curvilinear ultrasound probe was brought over the presumably location of the sciatic nerve and the nerve position was established between the ischial tuberosity and greater trochanter silhouettes. Extra anatomically inserted 100 mm 21 gauge echo stim needle was inserted and advanced to were the anterior lateral surface of the sciatic nerve under the gluteus nick muscle image. Injection of the normal saline in the vicinity of the sciatic nerve demonstrated normal spread of the normal saline surrounding the sciatic nerve tissues. After that 6 cc of ropivacaine 0.5% was injected in the vicinity of the nerve. Upon completion of the injection needle was removed sterile Band-Aid was applied. The patient tolerated the procedure well. Orders: Orders US guide needle placement 05/23/24 M17.12 - Unilateral primary osteoarthritis, left knee Coding Level of Care Code Procedure Only Diagnoses Peripheral neuropathy G62.9 Complex regional pain syndrome i of left lower limb G90.522
[2024-05-29 11:51] VITALS: BP 112/59; PULSE 83; RESP 15; O2SAT 98
== END 2024-05-29 11:48 | disposition home or self-care (01) ==
LOC: HO.PMCPRC 10:58
PROVIDERS: PCP Internal Medicine; Visit Provider Anesthesiology
DX: G62.9 Polyneuropathy, unspecified (principal); G90.522 Complex regional pain syndrome I of left lower limb
CPT/HCPCS: 64455

== ENCOUNTER 2024-05-31 10:17 | Outpatient (AMB) | payer OTHER, MEDICARE, MEDICAID, SELFPAY ==
--- NOTE | 2024-05-31 10:18 | A.OFFVIS_ITS ---
Vital Signs 05/31/24 10:47 Height 5 ft 4 in Weight 171 lb 2 oz BMI 29.4 BP 136/88 Blood Pressure Location Lt brachial Position Sitting Respiration 16 Pulse 100 Pulse Oximetry (%) 98 Oxygen Delivery Method Room Air Intake Visit Reasons: Dx. u/s-guided left-sided sciatic nerve block Intake Note: Patient comes in for post-op. Reports pain 06/09. Allergies No Known Allergies [No Known Allergies*] Allergy (Verified 05/31/24 10:47) HPI Comments Details: Claudia is back in my office f she complaining on intractable pain in the left lower extremity. We tried left sciatic nerve block ultrasound-guided and she reports only minimal pain relief about 50% for the 1st hour after the injection. Therefore any stimulation procedures on the sciatic nerve would not be effective to treat her pain. She reports that pain pump does not help her pain. She denies any help from intrathecal pain pump. She told me today that back in [facility] she was getting sympathetic blockade lumbar spine as well as epidural steroid injection. None of those were helpful for her pain. She was subject of spinal cord stimulator trial in the past which was not working for her. She is receiving pain pump which has only bupivacaine as the acting medicine. Multiple opioid and non opioid medications including morphine and fentanyl were tried for her as well as clonidine. None of those medications in the pump helping her pain. Her pain is on posterior surface of the hip and the posterior surface of the lower leg with radiation to the lateral surface of the foot. Now she requests me to remove intrathecal pain pump. Today I read the pump and put the pump on continuous dose of bupivacaine only. I will schedule her for the pump removal. Prior: under observation with Complex regional pain syndrome of the left lower extremity secondary to previous trauma.? She is on intrathecal drug delivery therapy she came today here for refill of the pain pump.? She reports that she does not feel pain alleviation too much from the pump.? She is telling me that gabapentin she takes orally helped her pain significantly.? She requests me to increase her dose to maximum 3600 mg a day.? I will do that today.? She requests me to refer her to [facility] consult.? She feels numbness on the left side of her torso with administration of the bolus.? She feels that if she would have this sub served of the numbness in the lower extremity it would be helpful for her pain.? I offered her revision of the catheter with withdrawal of the catheter from T8 to T11-T12 with potential effect on more on the leg with this adjustment.? The patient wanted to go to the center of [facility] to perform this procedure, [facility] Medical History (Updated 05/31/24 @ 11:05 by Mayco Sosa MD) Breast cancer screening by mammogram Generalized anxiety disorder Left leg paresthesias Bacterial vaginosis Anxiety Opioid use disorder Chronic pain syndrome Postlaminectomy syndrome Complex regional pain syndrome i of left lower limb Primary osteoarthritis of left knee Tobacco abuse Renal lesion Closed left ankle fracture Cervical disc herniation Hypothyroidism Surgical History Hx of cervical discectomy H/O colonoscopy H/O lumbar discectomy Spinal stenosis History of left knee surgery Left ACL tear Family History (Updated 03/23/23 @ 10:14 by BRITANY Alaniz) Father No problems noted. Mother Stroke Paternal Aunt Breast cancer Social History (Updated 12/25/21 @ 11:16 by Jessie Mcnally MD) Housing: House Are you a primary nanny caregiver to a significant other at home: No Do you presently have visiting nurse or other home services: No Alcohol intake: current Alcohol intake frequency: a few times a week Alcohol type: wine Patient Tobacco Use Status: Current everyday Tobacco user Tobacco use type: Cigarette Cigarettes Per Day: 7 Years Smoked: 30 e-Cigarette/Vaping Use: Never Used Second Hand Smoke Exposure: Yes service: No Current occupational status: unemployed Cognitive needs: No Hearing needs: No Vision needs: No Review of Systems Const All systems reviewed & are unremarkable except as noted in HPI and below Physical Exam Vital Signs: Last Vital Signs Pulse 100 05/31/24 10:47 Resp 16 05/31/24 10:47 BP 136/88 05/31/24 10:47 Pulse Ox 98 05/31/24 10:47 Oxygen Delivery Method Room Air 05/31/24 10:47 BMI result Body Mass Index 29.4 Const General: healthy appearing and comfortable Chest Chest palpation & inspection: normal inspection of the chest Resp Effort & Inspection: normal respiratory effort, able to speak in complete sentences, normal respiratory pattern, no audible wheezes, no cough, respiratory effort not decreased and no grunting Cardio Jugular venous distension: no JVD Extrem General: Yes no pedal edema and Yes no calf tenderness Assessment & Plan Assessment & Plan (1) Osteoarthritis of left knee: Code(s): M17.12 - Unilateral primary osteoarthritis, left knee Category: Medical Plan: (2) Postlaminectomy syndrome: Code(s): M96.1 - Postlaminectomy syndrome, not elsewhere classified Category: Medical (3) Complex regional pain syndrome i of left lower limb: Code(s): G90.522 - Complex regional pain syndrome I of left lower limb Category: Medical Plan: Sciatic nerve block did not result in pain improvement for this patient. Now she requests me to remove the intrathecal pain pump. I will schedule her for the procedure. I explained the possibility of the treatment with cognitive behavioral therapy to the patient. (4) Implantable intrathecal infusion pump present: Code(s): Z96.89 - Presence of other specified functional implants Category: Medical Plan The removal of the intrathecal pain pump will be scheduled as soon as possible on patient's insistence. Coding Level of Care Code Est Pt Level 3 (69217) Diagnoses Osteoarthritis of left knee M17.12 Postlaminectomy syndrome M96.1 Complex regional pain syndrome i of left lower limb G90.522 Implantable intrathecal infusion pump present Z96.89
[2024-05-31 10:47] VITALS: BP 136/88; PULSE 100; RESP 16; O2SAT 98; BMI 29.4
== END 2024-05-31 10:42 | disposition home or self-care (01) ==
PROVIDERS: PCP Internal Medicine; Visit Provider Anesthesiology
DX: M17.12 Unilateral primary osteoarthritis, left knee (principal); M96.1 Postlaminectomy syndrome, not elsewhere classified; G90.522 Complex regional pain syndrome I of left lower limb; Z96.89 Presence of other specified functional implants
CPT/HCPCS: 99213

== ENCOUNTER → 2024-05-31 10:17 | Outpatient (BNVA) | payer OTHER, MEDICARE, MEDICAID, SELFPAY | PROVIDERS: PCP Internal Medicine; Visit Provider Anesthesiology | DX: M96.1 Postlaminectomy syndrome, not elsewhere classified (principal); G90.522 Complex regional pain syndrome I of left lower limb; M17.12 Unilateral primary osteoarthritis, left knee; Z96.89 Presence of other specified functional implants | CPT/HCPCS: 99212 ==

== ENCOUNTER 2024-06-13 10:15 | Outpatient (AMB) | payer MEDICARE, MEDICAID, SELFPAY ==
[2024-06-13 10:17] VITALS: BP 136/68; PULSE 80; O2SAT 98; BMI 29.5
--- NOTE | 2024-06-13 10:17 | A.OFFPC_ITS ---
Vital Signs 06/13/24 10:17 Height 5 ft 4 in Weight 172 lb BMI 29.5 BP 136/68 Blood Pressure Location Lt brachial Position Sitting Pulse 80 Pulse Source Pulse Oximeter Pulse Oximetry (%) 98 Oxygen Delivery Method Room Air Intake Visit Reasons: f\u Allergies No Known Allergies [No Known Allergies*] Allergy (Verified 06/13/24 10:18) Medication List - Last Reconciled 06/13/24 by Hayden Man MD [toilet seat risers and Raised toilet seat As directed] alprazolam 0.25 mg PO DAILY ascorbate calcium (vitamin C) 500 mg PO DAILY clotrimazole 1% 1 appl topical BID 4 weeks cyanocobalamin (vitamin B-12) 1,000 mcg PO .QOD duloxetine 60 mg PO DAILY 90 days gabapentin 1,200 mg (2 x 600 mg) PO TID 90 days levothyroxine 88 mcg PO QAM magnesium oxide 400 mg PO DAILY miscellaneous medical supply 1 ea miscellaneous DAILY pregabalin 50 mg PO TID [RAISED TOILET As directed] [Raised toilet seat As directed] terbinafine HCl 250 mg PO DAILY 90 days [toilet seat risers As directed] triamcinolone acetonide 0.025% appl topical varenicline (Chantix Continuing Month Box) 1 mg PO BID [WALK IN SHOWER As directed] [Wrist SPlints As directed] Tobacco use date assessed: 01/31/24 Dental Screening Dental Screen Date: 06/13/24 Did you have a dental visit in the last 12 months?: Yes Did you have a dental problem in the last 6 months where you did not have access to dental care?: No Was dental information given to patient?: Patient has dentist HPI f\u HPI Details 63-year-old overweight female smoker wit h a history of post laminectomy syndrome hypothyroidism generalized anxiety disorder coming in for follow-up patient is asking for a walk-in shower and a raised toilet seat.. Patient is here for follow-up last seen in 02/18/2024. Mammogram is up-to-date colonoscopy is up-to-date. Patient continues to follow-up with pain management tried left sciatic nerve block ultrasound guided and was told with minimal pain relief pain pump not been helping. Has had sympathetic blockade lumbar spine and epidural steroid injection as well as spinal cord stimulator which has not worked for the patient before. Patient was asking for removal of the intrathecal pain pump since is has not helped. complains problem with putting a L shoe on. cannot bear to use cover problem with winter PFSH Medical History (Updated 06/13/24 @ 10:44 by Hayden Man MD) Breast cancer screening by mammogram Generalized anxiety disorder Left leg paresthesias Bacterial vaginosis Anxiety Opioid use disorder Chronic pain syndrome Postlaminectomy syndrome Complex regional pain syndrome i of left lower limb Primary osteoarthritis of left knee Tobacco abuse Renal lesion Closed left ankle fracture Cervical disc herniation Hypothyroidism Surgical History Hx of cervical discectomy H/O colonoscopy H/O lumbar discectomy Spinal stenosis History of left knee surgery Left ACL tear Family History (Updated 03/23/23 @ 10:14 by BRIATNY Alaniz) Father No problems noted. Mother Stroke Paternal Aunt Breast cancer Social History (Updated 12/25/21 @ 11:16 by Jessie Mcnally MD) Housing: House Are you a primary child care education coordinator to a significant other at home: No Do you presently have visiting nurse or other home services: No Alcohol intake: current Alcohol intake frequency: a few times a week Alcohol type: wine Patient Tobacco Use Status: Current someday Tobacco user Tobacco use type: Cigarette Years Smoked: 30 e-Cigarette/Vaping Use: Never Used Second Hand Smoke Exposure: Yes service: No Current occupational status: unemployed Cognitive needs: No Hearing needs: No Vision needs: No Questionnaire PHQ-9 Over the last 2 weeks, how often have you been bothered by any of the following problems? 1. Little interest or pleasure in doing things: not at all 2. Feeling down, depressed, or hopeless: not at all 3. Trouble falling or staying asleep, or sleeping too much: not at all 4. Feeling tired or having little energy: not at all 5. Poor appetite or overeating: not at all 6. Feeling bad about yourself - or that you are a failure or have let yourself or your family down: not at all 7. Trouble concentrating on things, such as reading the newspaper or watching television: not at all 8. Moving or speaking so slowly that other people could have noticed. Or the op posite - being so fidgety or restless that you have been moving around a lot more than usual: not at all 9. Thoughts that you would be better off or of hurting yourself in some way: not at all Total score: 0 Depression Screening Interpretation: Negative Depression Screening Done: Yes Source: Developed by Drs. Tai Viramontes, Stalin Thomas and colleagues, with an educational marcie from [employer]. Thrive Questionnaire Date Thrive assessed: 01/31/24 AUDIT C Alcohol Use Questionnaire (AUDIT-C) 1. How often do you have a drink containing alcohol?: 2-3 times a week 2. How many drinks containing alcohol do you have on a typical day when you are drinking?: 1 or 2 3. How often do you have six or more drinks on one occasion?: Never Total Score: 3 JESSICA-7 AMB Questionnaire JESSICA-7 Date JESSICA - 7 assessed: 01/31/24 Source: Developed by Drs. Tai Viramontes, Sherlyn Garza, Stalin Guerra and colleagues, with an educational marcie from [employer]. Physical exam (Primary Care) Vital Signs: Last Vital Signs Pulse 80 06/13/24 10:17 BP 136/68 06/13/24 10:17 Pulse Ox 98 06/13/24 10:17 Oxygen Delivery Method Room Air 06/13/24 10:17 BMI result Body Mass Index 29.5 Tobacco/Smoking Status: Tobacco use Status Tobacco use date assessed 01/31/24 06/13/24 10:25 Patient Tobacco Use Status Current someday Tobacco 06/13/24 10:25 Tobacco use type Cigarette 06/13/24 10:25 e-Cigarette/Vaping Use Never Used 06/13/24 10:25 PHQ-9: PHQ-9 Score PHQ-9: Total score 0 06/13/24 10:25 Depression Screening Interpretation: Negative Thrive Assessment: Date of Thrive Assessment Date Thrive assessed 01/31/24 06/13/24 10:25 Const General: alert; No acute distress Eyes Conjunctivae: conjunctivae normal Resp Auscultation: clear to auscultation bilaterally Cardio Rate: regular rate Rhythm: regular rhythm GI Inspection: Yes normal to inspection Extrem General: Yes normal to inspection and No edema Assessment and Plan Assessment & Plan (1) Postlaminectomy syndrome: Code(s): M96.1 - Postlaminectomy syndrome, not elsewhere classified Plan: Patient has been follow-up with pain management and different modalities for pain control has not been effective and has ask the pain management to remove the intrathecal pain pump. PAtient wants walk in shower and raised toilet . (2) Tobacco abuse: Comment: Quitting discussed She declined Chantix or nicotine patch stopped 10/2023 Doing vapes Code(s): Z72.0 - Tobacco use Plan: Patient continues to smoke despite recommendation of stopping. PAtient is doing vape (3) Hypothyroidism: Code(s): E03.9 - Hypothyroidism, unspecified Qualifiers: Hypothyroidism type: acquired Qualified Code(s): E03.9 - Hypothyroidism, unspecified Plan: Continue with thyroid medication and advised to retest in 3 months (4) Generalized anxiety disorder: Code(s): F41.1 - Generalized anxiety disorder Plan: Continue with present medication (5) Overweight (BMI 25.0-29.9): Code(s): E66.3 - Overweight Plan: Diet and exercise Orders: Orders Thyroid Stimulating Hormone 3 Months E03.9 - Hypothyroidism, unspecified Vitamin B12 and Folate 3 Months E03.9 - Hypothyroidism, unspecified Vitamin D 25-OH Total 3 Months E03.9 - Hypothyroidism, unspecified Complete Blood Count Auto Diff 3 Months E03.9 - Hypothyroidism, unspecified Comprehensive Met. Panel 3 Months E03.9 - Hypothyroidism, unspecified Free T4 (Free Thyroxine) 3 Months E03.9 - Hypothyroidism, unspecified Lipid Panel 3 Months E03.9 - Hypothyroidism, unspecified, E78.00 - Pure hypercholesterolemia, unspecified Medications: New [WALK IN SHOWER] As directed 1 ea 0RF M96.1 - Postlaminectomy syndrome, not elsewhere classified [RAISED TOILET] As directed 2 ea 0RF M96.1 - Postlaminectomy syndrome, not elsewhere classified Coding Level of Care Code Est Pt Level 4 (93057) Diagnoses Postlaminectomy syndrome M96.1 Tobacco abuse Z72.0 Acquired hypothyroidism E03.9 Hypothyroidism type: acquired Generalized anxiety disorder F41.1 Overweight (BMI 25.0-29.9) E66.3
== END 2024-06-13 10:52 | disposition home or self-care (01) ==
PROVIDERS: PCP Internal Medicine; Visit Provider Internal Medicine
DX: M96.1 Postlaminectomy syndrome, not elsewhere classified (principal); Z72.0 Tobacco use; E03.9 Hypothyroidism, unspecified; F41.1 Generalized anxiety disorder; E66.3 Overweight
CPT/HCPCS: 99214

== ENCOUNTER 2024-06-15 10:00 | Outpatient (AMB) | payer OTHER, MEDICARE, MEDICAID, SELFPAY ==
--- NOTE | 2024-06-15 10:01 | MHC.OFFVIS ---
Vital Signs 06/15/24 10:03 Height 5 ft 4 in Weight 171 lb BMI 29.3 BP 118/61 Blood Pressure Location Lt brachial Position Sitting Respiration 14 Pulse 100 Pulse Source Pulse Oximeter Pulse Oximetry (%) 99 Oxygen Delivery Method Room Air Intake Visit Reasons: ITDD Pain Pump Refill Allergies No Known Allergies [No Known Allergies*] Allergy (Verified 06/15/24 10:06) Medication List - Last Reconciled 06/15/24 by Lissett Noriega LPN [toilet seat risers and Raised toilet seat As directed] alprazolam 0.25 mg PO DAILY ascorbate calcium (vitamin C) 500 mg PO DAILY clotrimazole 1% 1 appl topical BID 4 weeks cyanocobalamin (vitamin B-12) 1,000 mcg PO .QOD duloxetine 60 mg PO DAILY 90 days gabapentin 1,200 mg (2 x 600 mg) PO TID 90 days levothyroxine 88 mcg PO QAM magnesium oxide 400 mg PO DAILY miscellaneous medical supply 1 ea miscellaneous DAILY pregabalin 50 mg PO TID [RAISED TOILET As directed] [Raised toilet seat As directed] terbinafine HCl 250 mg PO DAILY 90 days [toilet seat risers As directed] triamcinolone acetonide 0.025% appl topical varenicline (Chantix Continuing Month Box) 1 mg PO BID [WALK IN SHOWER As directed] [Wrist SPlints As directed] HPI HPI ITDD Pain Pump Refill: Details: 63-year-old female who presents today to the office for a ITDD pain pump refill. She presents today for pain pump refill with plain bupivacaine 25 milligrams per ml. Upon interrogation of her pump, it appears that she has enough medication to last until mid-July. She states that she is scheduled for a pump explant on July 13, 2024. She is curious why she needs a refill. [facility] Medical History (Updated 06/13/24 @ 10:44 by Hayden Man MD) Breast cancer screening by mammogram Generalized anxiety disorder Left leg paresthesias Bacterial vaginosis Anxiety Opioid use disorder Chronic pain syndrome Postlaminectomy syndrome Complex regional pain syndrome i of left lower limb Primary osteoarthritis of left knee Tobacco abuse Renal lesion Closed left ankle fracture Cervical disc herniation Hypothyroidism Surgical History Hx of cervical discectomy H/O colonoscopy H/O lumbar discectomy Spinal stenosis History of left knee surgery Left ACL tear Family History (Updated 03/23/23 @ 10:14 by BRITANY Alaniz) Father No problems noted. Mother Stroke Paternal Aunt Breast cancer Social History (Updated 12/25/21 @ 11:16 by Jessie Mcnally MD) Housing: House Are you a primary patient care technician instructor to a significant other at home: No Do you presently have visiting nurse or other home services: No Alcohol intake: current Alcohol intake frequency: a few times a week Alcohol type: wine Patient Tobacco Use Status: Current someday Tobacco user Tobacco use type: Cigarette Years Smoked: 30 e-Cigarette/Vaping Use: Never Used Second Hand Smoke Exposure: Yes service: No Current occupational status: unemployed Cognitive needs: No Hearing needs: No Vision needs: No Review of Systems Const All systems reviewed & are unremarkable except as noted in HPI and below Physical Exam Vital Signs: Last Vital Signs Pulse 100 06/15/24 10:03 Resp 14 06/15/24 10:03 BP 118/61 06/15/24 10:03 Pulse Ox 99 06/15/24 10:03 Oxygen Delivery Method Room Air 06/15/24 10:03 BMI result Body Mass Index 29.3 General: Appears afebrile. Alert and oriented. Mood and affect appropriate. Follows and participates in conversation appropriately. Respiratory effort is unlabored. Able to transition from sit to stand unassisted. Ambulates with bilaterally normal heel strike and toe off. Office Procedures Details: By mistake Procedure code (CPT) selection complete Results Reviewed Results Reviewed: No imaging is available for review. Assessment & Plan Assessment & Plan (1) Complex regional pain syndrome i of left lower limb: Code(s): G90.522 - Complex regional pain syndrome I of left lower limb Category: Medical Plan I reviewed her records and agreed that she does not necessarily need a refill prior to her upcoming explant procedure on July 13, 2024. I reprogrammed her pump, decreasing the dosage to 1.5 milligrams per day so that her current medication will last her until August, allowing her ample redundancy time for her upcoming explant surgery. I also discussed DRG stimulation as a potential option to try next. I provided her with a brochure and encouraged her to discuss this with Dr. Sosa. I think she might benefit from a temporary left L5 nerve roots PNS trial with a [employer] device. If this is not enough to provide her with long-term relief. She can consider an [employer] DRG system trial/implant for her left L5-S1 chronic radiculopathy symptoms. Scribed for Dr. Epstein by Angel Klein, medical accounting clerk, on 06/15/2024. I, Dr. Epstein, have personally reviewed and agree with the information entered by the scribe. Coding Level of Care Code Est Pt Level 4 (52031) Diagnoses Complex regional pain syndrome i of left lower limb G90.522
[2024-06-15 10:03] VITALS: BP 118/61; PULSE 100; RESP 14; O2SAT 99; BMI 29.3
== END 2024-06-15 10:29 | disposition home or self-care (01) ==
PROVIDERS: PCP Internal Medicine; Visit Provider Internal Medicine
DX: G90.522 Complex regional pain syndrome I of left lower limb (principal)
CPT/HCPCS: 99214

== ENCOUNTER → 2024-06-15 10:00 | Outpatient (BNVA) | payer OTHER, MEDICARE, MEDICAID, SELFPAY | PROVIDERS: PCP Internal Medicine; Visit Provider Internal Medicine | DX: Z45.1 Encounter for adjustment and management of infusion pump (principal); G90.522 Complex regional pain syndrome I of left lower limb | CPT/HCPCS: 99212 ==

== ENCOUNTER 2024-08-06 14:59 | Outpatient (AMB) | payer OTHER, MEDICARE, MEDICAID, SELFPAY ==
--- NOTE | 2024-08-06 15:01 | MHC.OFFVIS ---
Vital Signs 08/06/24 15:08 Height 5 ft 4 in Weight 170 lb BMI 29.2 BP 140/70 H Blood Pressure Location Lt brachial Position Sitting Respiration 16 Pulse 90 Pulse Source Pulse Oximeter Pulse Oximetry (%) 100 Oxygen Delivery Method Room Air Intake Visit Reasons: discuss DRG/Sprint Intake Note: Patient comes in to discuss options. Reports pain 05/09. Allergies No Known Allergies [No Known Allergies*] Allergy (Verified 08/06/24 15:07) HPI Comments Details: Claudia is back in my office f she complaining on intractable pain in the left lower extremity. We tried left sciatic nerve block ultrasound-guided and she reports only minimal pain relief about 50% for the 1st hour after the injection. Therefore any stimulation procedures on the sciatic nerve would not be effective to treat her pain. She reports that pain pump does not help her pain. She denies any help from intrathecal pain pump. She told me today that back in [facility] she was getting sympathetic blockade lumbar spine as well as epidural steroid injection. None of those were helpful for her pain. She was subject of spinal cord stimulator trial in the past which was not working for her. She is receiving pain pump which has only bupivacaine as the acting medicine. Multiple opioid and non opioid medications including morphine and fentanyl were tried for her as well as clonidine. None of those medications in the pump helping her pain. Her pain is on posterior surface of the hip and the posterior surface of the lower leg with radiation to the lateral surface of the foot. We discussed today possibility of her pain coming from lesions located in the pelvis. She requested me to send her for the MRI of the pelvis. I will comply and will schedule her for pelvis MRI. Alternatively we can consider dorsal root ganglion stimulation spinal cord stimulation to help her pain. OzVision spinal cord stimulation can be tried in the lateral position as well. We need to schedule her for psychological evaluation if she seriously consider those neuromodulation procedures. Prior: under observation with Complex regional pain syndrome of the left lower extremity secondary to previous trauma.? She is on intrathecal drug delivery therapy she came today here for refill of the pain pump.? She reports that she does not feel pain alleviation too much from the pump.? She is telling me that gabapentin she takes orally helped her pain significantly.? She requests me to increase her dose to maximum 3600 mg a day.? I will do that today.? She requests me to refer her to [facility].? She feels numbness on the left side of her torso with administration of the bolus.? [facility] Medical History (Updated 06/13/24 @ 10:44 by Hayden Man MD) Breast cancer screening by mammogram Generalized anxiety disorder Left leg paresthesias Bacterial vaginosis Anxiety Opioid use disorder Chronic pain syndrome Postlaminectomy syndrome Complex regional pain syndrome i of left lower limb Primary osteoarthritis of left knee Tobacco abuse Renal lesion Closed left ankle fracture Cervical disc herniation Hypothyroidism Surgical History Hx of cervical discectomy H/O colonoscopy H/O lumbar discectomy Spinal stenosis History of left knee surgery Left ACL tear Family History (Updated 03/23/23 @ 10:14 by BRITANY Alaniz) Father No problems noted. Mother Stroke Paternal Aunt Breast cancer Social History (Updated 12/25/21 @ 11:16 by Jessie Mcnally MD) Housing: House Are you a primary hospice care consultant to a significant other at home: No Do you presently have visiting nurse or other home services: No Alcohol intake: current Alcohol intake frequency: a few times a week Alcohol type: wine Patient Tobacco Use Status: Current someday Tobacco user Tobacco use type: Cigarette Years Smoked: 30 e-Cigarette/Vaping Use: Never Used Second Hand Smoke Exposure: Yes service: No Current occupational status: unemployed Cognitive needs: No Hearing needs: No Vision needs: No Review of Systems Const All systems reviewed & are unremarkable except as noted in HPI and below Physical Exam Vital Signs: Last Vital Signs Pulse 90 08/06/24 15:08 Resp 16 08/06/24 15:08 BP 140/70 H 08/06/24 15:08 Pulse Ox 100 08/06/24 15:08 Oxygen Delivery Method Room Air 08/06/24 15:08 BMI result Body Mass Index 29.2 Const General: healthy appearing and comfortable Chest Chest palpation & inspection: normal inspection of the chest Resp Effort & Inspection: normal respiratory effort, able to speak in complete sentences, normal respiratory pattern, no audible wheezes, no cough, respiratory effort not decreased and no grunting Cardio Jugular venous distension: no JVD Extrem General: Yes no pedal edema and Yes no calf tenderness Assessment & Plan Assessment & Plan (1) Osteoarthritis of left knee: Code(s): M17.12 - Unilateral primary osteoarthritis, left knee Category: Medical Plan: (2) Postlaminectomy syndrome: Code(s): M96.1 - Postlaminectomy syndrome, not elsewhere classified Category: Medical (3) Complex regional pain syndrome i of left lower limb: Code(s): G90.522 - Complex regional pain syndrome I of left lower limb Category: Medical (4) Implantable intrathecal infusion pump present: Code(s): Z96.89 - Presence of other specified functional implants Category: Medical Plan The removal of the intrathecal pain pump will be scheduled as soon as possible on patient's insistence. This patient wants me to consider neuromodulation such as dorsal root ganglion stimulation versus lumbar positioned spinal cord stimulation. She also would like me to send her for the MRI of the pelvis. I will send her for pelvis MRI to remove the red flags possibility of masses or lesions compressing the sciatic nerve. She needs to be scheduled for psychological evaluation before neuromodulation procedures so we will schedule her for [facility] psychology evaluation. Coding Level of Care Code Est Pt Level 3 (19660) Diagnoses Osteoarthritis of left knee M17.12 Postlaminectomy syndrome M96.1 Complex regional pain syndrome i of left lower limb G90.522 Implantable intrathecal infusion pump present Z96.89
[2024-08-06 15:08] VITALS: BP 140/70; PULSE 90; RESP 16; O2SAT 100; BMI 29.2
== END 2024-08-06 15:18 | disposition home or self-care (01) ==
PROVIDERS: PCP Internal Medicine; Visit Provider Anesthesiology
DX: M17.12 Unilateral primary osteoarthritis, left knee (principal); M96.1 Postlaminectomy syndrome, not elsewhere classified; G90.522 Complex regional pain syndrome I of left lower limb; Z96.89 Presence of other specified functional implants
CPT/HCPCS: 99213

== ENCOUNTER → 2024-08-06 14:59 | Outpatient (BNVA) | payer OTHER, MEDICARE, MEDICAID, SELFPAY | PROVIDERS: PCP Internal Medicine; Visit Provider Anesthesiology | DX: M17.12 Unilateral primary osteoarthritis, left knee (principal); M96.1 Postlaminectomy syndrome, not elsewhere classified; G90.522 Complex regional pain syndrome I of left lower limb; Z96.89 Presence of other specified functional implants | CPT/HCPCS: 99212 ==

== ENCOUNTER 2024-08-31 10:06 | Day surgery (SDC) | payer OTHER, SELFPAY ==
[2024-08-31] VITALS (9 sets, daily range): BP systolic 107–134; BP diastolic 67–75; PULSE 68–80; RESP 16; TEMP 36.3–36.4; O2SAT 97–100; BMI 28.8
--- NOTE | 2024-08-31 10:50 | HO.ANESPROP2 ---
[facility] Active Problems Active Problems: All Active Problems Implantable intrathecal infusion pump present (Acute) Overweight (BMI 25.0-29.9) (Acute) Onychomycosis (Acute) Osteoarthritis of left knee (Acute) Hypersomnia (Acute) Tinea versicolor (Acute) Tinea (Acute) Generalized anxiety disorder (Acute) Carpal tunnel syndrome (Acute) Chronic radicular cervical pain (Acute) Bilateral hand numbness (Acute) Skin lesion of right leg (Acute) Anemia (Acute) Peripheral neuropathy (Acute) Cervical cancer screening (Acute) Opioid use disorder (Acute) Chronic pain syndrome (Acute) Postlaminectomy syndrome (Acute) Complex regional pain syndrome i of left lower limb (Acute) Renal lesion (Acute) Primary osteoarthritis of left knee (Acute) Tobacco abuse (Acute) H/O lumbar discectomy (Acute) Hypothyroidism (Acute) Past Medical History Medical History Breast cancer screening by mammogram Generalized anxiety disorder Left leg paresthesias Bacterial vaginosis Anxiety Opioid use disorder Chronic pain syndrome Postlaminectomy syndrome Complex regional pain syndrome i of left lower limb Primary osteoarthritis of left knee Tobacco abuse Renal lesion Closed left ankle fracture Cervical disc herniation Hypothyroidism Family History Family History Father No problems noted. Mother Stroke Paternal Aunt Breast cancer Family history of problems with anesthesia: No Surgical History Surgical History Hx of cervical discectomy H/O colonoscopy H/O lumbar discectomy Spinal stenosis History of left knee surgery Left ACL tear History of Problems with Anesthesia: No Social History Social History Housing: House Are you a primary acute care registered nurse to a significant other at home: No Do you presently have visiting nurse or other home services: No Alcohol intake: current Alcohol intake frequency: a few times a week Alcohol type: wine Patient Tobacco Use Status: Current someday Tobacco user Tobacco use type: Cigarette Years Smoked: 30 e-Cigarette/Vaping Use: Never Used Second Hand Smoke Exposure: Yes Use of substances other than those prescribed or required for medical reasons: No Are you DNR?: No Advance Directives: No Advance Directives Information Provided: Yes Advance Directives on File: No Recently lost weight without trying: No Nutrition Risks: No Nutritional Risk Patient : No service: No Current occupational status: unemployed Cognitive needs: No Hearing needs: No Vision needs: No Meds Allergies Allergy/AdvReac Type Severity Reaction Status Date / Time No Known Allergies Allergy Verified 08/06/24 15:07 [No Known Allergies*] Home Medications ?Medication ?Instructions ?Recorded ?Confirmed ?Last Taken ?Type magnesium oxide 400 mg PO DAILY 12/30/20 06/15/24 Unknown History triamcinolone acetonide 0.025 % appl topical 05/04/23 06/15/24 Unknown History topical cream pregabalin 50 mg capsule 50 mg PO TID 01/12/24 06/15/24 08/31/24 History Exam Height,Weight and Vital Signs: Height 5 ft 5 in Weight 78.471 kg Assessment and Plan Assessment Anesthesia Assessment: Anesthesia Plan Discussed and Chart Reviewed Final Anesthetic Review Family History of Problems with Anesthesia: No History of Problems with Anesthesia: No NPO: Yes ASA Class: II Final Preanesthetic Review: Meds/Allgs Chart Reviewed, Consent Obtained/Reviewed and Anes Risks/Benef Reviewed Patient Risk: Low Procedure Risk: Low Anesthetic Plan Anesthetic Plan: GA Disposition: Standard PACU
[2024-08-31] MEDS: Lactated Ringers 1,000 ML 80 ML IVCONT (11:02)
--- NOTE | 2024-08-31 11:05 | MHC.SHP ---
Pre-Procedural Eval Section A - 24 Hr Update-Section A only Date of Service: 08/31/24 The patient is an INPATIENT: No Changes since office visit: Yes Patient answered all questions The patient has been examined within 24 hours of the surgical procedure. The History & Physical has been completed within 30 days and I have reviewed it.: No Section B - Complete if H&P > 30 days Chief Complaint: Presence of other specified functional implants Details of Present Illness: As above Relevant Family History (Specify if Yes): No Relevant Social History: None Present Medications: None Medical History: No relevant PMH History of Previous Operations: Relevant previous surgery/procedure and date(s) (intrathecal pump implant) Allergies: Allergies Allergy/AdvReac Type Severity Reaction Status Date / Time No Known Allergies Allergy Verified 08/06/24 15:07 [No Known Allergies*] Review of Systems Sugical H&P ROS: Negative: Constitution, Cardiovascular, Respiratory, Neurological, Psychiatric, Hem-Onc, Allergic/Immunologic, Gastrointestinal, Genitourinary, Musculoskeletal, Integumentary, Endocrine and Eyes/Ears/Nose/Throat Exam Surgical H&P Exam: Normal: HEENT, Normal: Heart, Normal: Lungs, Normal: Extremities, Normal: Abdomen, Normal: Skin and Normal: Neurological Plan Diagnosis/Plan: Unchanged I have reviewed the history and physical and performed a pertinent physical examination on my patient. No changes have occurred unless specified. Time Spent With Patient Time: Total time managing care of this patient today ____ minutes.
--- NOTE | 2024-08-31 13:03 | P.BOP_ITS ---
Brief Operative Note Date of Service: 08/31/24 Pre-op diagnosis: Presence of intrathecal pain pump, patient's desire to remove the pain pump Post-op diagnosis: same Procedure: Removal of the intrathecal pain pump [employer] Implants: None permanent Surgeon: Mayco Sosa MD Anesthesia: GETA Was an Event Operations Manager used for this Procedure?: No Estimated blood loss (mL): 18 Pathology: none sent Condition: stable Disposition: PACU
--- NOTE | 2024-08-31 13:04 | W.PM.OPN ---
Operative Note Operative Note Date of Service: 08/31/24 Narrative: Removal of intrathecal pain pump. After explaining informed consent including risks benefits and alternatives of the procedure, where the alternatives were listed as the possibility of not removing of the pain pump just keeping the device on minimal rate, the patient agreed to undergo for the procedure. She was taken to the operating room and positioned supine on a stretcher. ASA monitors were applied and general anesthesia with endotracheal intubation was induced. After that patient was transferred prone on the operating table all pressure points were protected. Patient's lower back and upper buttocks were prepped with ChloraPrep and draped with sterile utility towels and full body fenestrated drape. After the the previous scar from implantation of the pain pump in right upper buttock was injected with lidocaine 2% mixture with ropivacaine 0.5% one-to-one 10 mL. After that 2 Allis clamps were applied to most lateral and the medial corners of the scar and using 10 blade scalpel to incisions were made parallel to the scar 1 above and 1 below the scar. The incisions were connected of the end of the Allis clamps. After that scar excision was performed and thorough hemostasis using electrocautery of the tissues was applied. Soft tissues were divided until the capsule of the pain pump was seen and Metzenbaum scissors were used to sever the posterior wall of the pain pump capsule. The pain pump was located in the wound and anchoring sutures were severed using suture scissors. After that the pump was delivered to the level of the skin. After that the intrathecal catheter was dissected from the underlying adhesions and severed using suture scissors leaving approximately 8 cm length of the intrathecal catheter from the pointed penetrates anterior wall of the pain pump capsule. After that the electrocautery was used to incise the anterior wall of the pain pump capsule forming pocket to hide the intrathecal catheter. After that the intrathecal catheter was tied on itself with using 2 0-0 Tycron sutures and it was inserted into the small pocket in the anterior wall. After that 0-0 Tycron suture was used to close the anterior wall hermetically covering the intrathecal catheter. After that thorough hemostasis was performed and wound was inspected. The most inferior lateral corner of the wound was chosen as the point for drainage. Of the 8.0 Mani-Henning drain with flat draining point was inserted into the wound and the tip of the Mani-Henning drain was driven through the skin. After that the draining portion was trimmed appropriately. The wound was irrigated using vancomycin containing normal saline. After that 0-0 Polysorb sutures was used to close the pocket of the pain pump posterior wall. After that 2.0 Polysorb sutures were used to approximate the skin and subcutaneous tissues. [place] were applied to the level of the skin. After that nylon suture 3-0 was used to suture the drain line to the skin. Upon completion of the procedure the wounds were covered with bacitracin ointment dressing which was taped to the skin using Medipore drape. The patient tolerated the procedure well she was awakened extubated and taken outside of the operating room to recovery room where she recovered uneventfully.
== END 2024-08-31 14:34 | disposition home or self-care (01) ==
PROVIDERS: PCP Internal Medicine; Visit Provider Anesthesiology
PROC: (CPT 62355; principal; 2024-08-31 11:10)
DX: Z45.1 Encounter for adjustment and management of infusion pump (principal); Z97.8 Presence of other specified devices
CPT/HCPCS: 62355; 62365; J0690; J1100; J2003; J2250; J2405; J2704; J2795; J3010; J3370

== ENCOUNTER → 2024-08-31 10:06 | Outpatient (BNV) | payer OTHER, SELFPAY | PROVIDERS: PCP Internal Medicine; Visit Provider Anesthesiology | DX: Z96.89 Presence of other specified functional implants (principal) | CPT/HCPCS: 62365 ==

== ENCOUNTER 2024-09-06 15:47 | Outpatient (AMB) | payer OTHER, SELFPAY ==
--- NOTE | 2024-09-06 15:48 | A.OFFVIS_ITS ---
Vital Signs 09/06/24 15:58 Height 5 ft 5 in Weight 173 lb BMI 28.8 BP 120/60 Blood Pressure Location Lt brachial Position Sitting Respiration 16 Pulse 86 Pulse Source Pulse Oximeter Pulse Oximetry (%) 98 Oxygen Delivery Method Room Air Intake Visit Reasons: S/p ITDD Pain Pump Removal Intake Note: Patient comes in for post-op. Reports pain 06/09. Allergies No Known Allergies [No Known Allergies*] Allergy (Verified 09/06/24 15:57) HPI Comments Details: Claudia is back in my office after surgery of the removal of the intrathecal pain pump. She presented herself today with ANMOL drain producing only about 30 mL of serosanguineous fluid over the course of almost a week since the surgery. The wound is examined: There is no redness, no pathological discharge no swelling no tenderness on palpation. The piper are competent. The wound line as clean. Sterile dressing with bacitracin applied. Next week we will remove her piper and remove ANMOL drain. She continues to complain on severe intractable pain of the left lower extremit y. We tried left sciatic nerve block ultrasound-guided and she reports only minimal pain relief about 50% for the 1st hour after the injection. Therefore any stimulation procedures on the sciatic nerve would not be effective to treat her pain. She denied any help from intrathecal pain pump. She insisted on removal of the device. [facility] she was getting sympathetic blockade lumbar spine as well as epidural steroid injection. None of those were helpful for her pain. She was subject of spinal cord stimulator trial in the past which was not working for her. She was receiving pain pump which has only bupivacaine as the acting medicine. Multiple opioid and non opioid medications including morphine and fentanyl were tried for her as well as clonidine. None of those medications in the pump helping her pain. Her pain is on posterior surface of the hip and the posterior surface of the lower leg with radiation to the lateral surface of the foot. She requested me to send her for the MRI of the left lower extremity. She is now convinced that her pain is related to Peroneal nerve injury/neuropathy. My experience with sciatic nerve block goes against the steering however I will be happy if MRI will demonstrate any possible lesions of the common superficial or deep peroneal nerves. Prior: under observation with Complex regional pain syndrome of the left lower extremity secondary to previous trauma.? She is on intrathecal drug delivery therapy she came today here for refill of the pain pump.? She reports that she does not feel pain alleviation too much from the pump.? She is telling me that gabapentin she takes orally helped her pain significantly.? She requests me to increase her dose to maximum 3600 mg a day.? I will do that today.? She requests me to refer her to [facility].? She feels numbness on the left side of her torso with administration of the bolus.? [facility] Medical History Breast cancer screening by mammogram Generalized anxiety disorder Left leg paresthesias Bacterial vaginosis Anxiety Opioid use disorder Chronic pain syndrome Postlaminectomy syndrome Complex regional pain syndrome i of left lower limb Primary osteoarthritis of left knee Tobacco abuse Renal lesion Closed left ankle fracture Cervical disc herniation Hypothyroidism Surgical History Hx of cervical discectomy H/O colonoscopy H/O lumbar discectomy Spinal stenosis History of left knee surgery Left ACL tear Family History Father No problems noted. Mother Stroke Paternal Aunt Breast cancer Social History Housing: House Are you a primary nursing care partner to a significant other at home: No Do you presently have visiting nurse or other home services: No Alcohol intake: current Alcohol intake frequency: a few times a week Alcohol type: wine Patient Tobacco Use Status: Current someday Tobacco user Tobacco use type: Cigarette Years Smoked: 30 e-Cigarette/Vaping Use: Never Used Second Hand Smoke Exposure: Yes service: No Current occupational status: unemployed Cognitive needs: No Hearing needs: No Vision needs: No Review of Systems Const All systems reviewed & are unremarkable except as noted in HPI and below Physical Exam Vital Signs: Last Vital Signs Pulse 86 09/06/24 15:58 Resp 16 09/06/24 15:58 BP 120/60 09/06/24 15:58 Pulse Ox 98 09/06/24 15:58 Oxygen Delivery Method Room Air 09/06/24 15:58 BMI result Body Mass Index 28.8 Const General: healthy appearing and comfortable Chest Chest palpation & inspection: normal inspection of the chest Resp Effort & Inspection: normal respiratory effort, able to speak in complete s entences, normal respiratory pattern, no audible wheezes, no cough, respiratory effort not decreased and no grunting Cardio Jugular venous distension: no JVD Extrem Other: She reports awkwardness with walking and relative weakness with dorsiflexion of the left lower extremity left foot. General: Yes no pedal edema and Yes no calf tenderness Assessment & Plan Assessment & Plan (1) Osteoarthritis of left knee: Code(s): M17.12 - Unilateral primary osteoarthritis, left knee Category: Medical Plan: (2) Postlaminectomy syndrome: Code(s): M96.1 - Postlaminectomy syndrome, not elsewhere classified Category: Medical (3) Complex regional pain syndrome i of left lower limb: Code(s): G90.522 - Complex regional pain syndrome I of left lower limb Category: Medical (4) Implantable intrathecal infusion pump present: Code(s): Z96.89 - Presence of other specified functional implants Category: Medical (5) Common peroneal nerve dysfunction: Code(s): S84.10XA - Injury of peroneal nerve at lower leg level, unspecified leg, initial encounter Category: Medical (6) 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 The wound is examined see description as above. Next week I will remove the piper and ANMOL drain. The patient exhausted all of the conservative and interventional therapy treat her condition. She has intractable pain in the left lower extremity as a result of the previous trauma. She was treated as Complex regional pain syndrome patient. However she is now convinced that her symptoms are coming from peroneal nerve injury. We agreed that I will send her for the MRI of her left lower extremity to rule out a demonstrate possible injury or compression of common peroneal nerve. The MRI is pending. Patient Instructions: I here by testify that I spent 32 minutes in conversation with this patient as well as evaluating her prior records prior diagnostic studies and planning her care and organizing this note. 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
[2024-09-06 15:58] VITALS: BP 120/60; PULSE 86; RESP 16; O2SAT 98; BMI 28.8
== END 2024-09-06 16:13 | disposition home or self-care (01) ==
LOC: HO.PMC 15:47
PROVIDERS: PCP Internal Medicine; Visit Provider Anesthesiology
DX: M17.12 Unilateral primary osteoarthritis, left knee (principal); M96.1 Postlaminectomy syndrome, not elsewhere classified; G90.522 Complex regional pain syndrome I of left lower limb; Z96.89 Presence of other specified functional implants; S84.10XA Injury of peroneal nerve at lower leg level, unspecified leg, initial encounter; S84.12XA Injury of peroneal nerve at lower leg level, left leg, initial encounter
CPT/HCPCS: 99024

== ENCOUNTER → 2024-09-06 15:47 | Outpatient (BNVA) | payer OTHER, SELFPAY | PROVIDERS: PCP Internal Medicine; Visit Provider Anesthesiology | DX: Z48.89 Encounter for other specified surgical aftercare (principal); M17.12 Unilateral primary osteoarthritis, left knee; M96.1 Postlaminectomy syndrome, not elsewhere classified; G90.522 Complex regional pain syndrome I of left lower limb; S84.10XD Injury of peroneal nerve at lower leg level, unspecified leg, subsequent encounter; S84.12XD Injury of peroneal nerve at lower leg level, left leg, subsequent encounter | CPT/HCPCS: 99212 ==

== ENCOUNTER 2024-09-12 09:09 | Outpatient (AMB) | payer OTHER, SELFPAY ==
--- NOTE | 2024-09-12 09:10 | A.OFFVIS_ITS ---
Vital Signs 09/12/24 09:20 Height 5 ft 5 in Weight 173 lb BMI 28.8 BP 118/60 Blood Pressure Location Lt brachial Position Sitting Respiration 16 Pulse 79 Pulse Source Pulse Oximeter Pulse Oximetry (%) 98 Oxygen Delivery Method Room Air Intake Visit Reasons: S/p ITDD Removal 08/31/24 (2nd Visit) Intake Note: Patient comes in for post-op. Reports pain 05/09. Allergies No Known Allergies [No Known Allergies*] Allergy (Verified 09/12/24 09:19) HPI Comments Details: Claudia is back in my office after surgery of the removal of the intrathecal pain pump. She presented herself today with ANMOL drain bulb disconnected from the drain. This is risk for infection. I immediately removed the ANMOL drain from the patient's wound and applied dressing. I also removed the piper. I informed the patient that if she will have the pus coming out of the drain site she would need to come immediately to me and I would need to schedule her for the I and D of the abscess. Unfortunately at this time I can not do anything. The risks no redness there is no pathological discharge no swelling in the projection of the wound. The wound healed very well. Sterile dressing with bacitracin applied to the area of the wound after removal of the piper. As of her concern about the MRI of the lower extremity unfortunately the insurance company so far was not very responsive to us on the request of approval of this MRI. This was explained to the patient. Her insurance company is [employer]. She continues to complain on severe intractable pain of the left lower extremity. We tried left sciatic nerve block ultrasound-guided and she reports only minimal pain relief about 50% for the 1st hour after the injection. Therefore any stimulation procedures on the sciatic nerve would not be effective to treat her pain. She denied any help from intrathecal pain pump. She insisted on removal of the device. At the [facility] she was getting sympathetic blockade lumbar spine as well as epidural steroid injection. None of those were helpful for her pain. She was subject of spinal cord stimulator trial in the past which was not working for her. She was receiving pain pump which has only bupivacaine as the acting medicine. Multiple opioid and non opioid medications including morphine and fentanyl were tried for her as well as clonidine. None of those medications in the pump helping her pain. Her pain is on posterior surface of the hip and the posterior surface of the lower leg with radiation to the lateral surface of the foot. She requested me to send her for the MRI of the left lower extremity. She is now convinced that her pain is related to Peroneal nerve injury/neuropathy. My experience with sciatic nerve block goes against the steering however I will be happy if MRI will demonstrate any possible lesions of the common superficial or deep peroneal nerves. Prior: under observation with Complex regional pain syndrome of the left lower extremity secondary to previous trauma.? She is on intrathecal drug delivery therapy she came today here for refill of the pain pump.? She reports that she does not feel pain alleviation too much from the pump.? She is telling me that gabapentin she takes orally helped her pain significantly.? She requests me to increase her dose to maximum 3600 mg a day.? I will do that today.? She requests me to refer her to [facility].? She feels numbness on the left side of her torso with administration of the bolus.? [facility] Medical History Breast cancer screening by mammogram Generalized anxiety disorder Left leg paresthesias Bacterial vaginosis Anxiety Opioid use disorder Chronic pain syndrome Postlaminectomy syndrome Complex regional pain syndrome i of left lower limb Primary osteoarthritis of left knee Tobacco abuse Renal lesion Closed left ankle fracture Cervical disc herniation Hypothyroidism Surgical History Hx of cervical discectomy H/O colonoscopy H/O lumbar discectomy Spinal stenosis History of left knee surgery Left ACL tear Family History Father No problems noted. Mother Stroke Paternal Aunt Breast cancer Social History Housing: House Are you a primary career technology teacher to a significant other at home: No Do you presently have visiting nurse or other home services: No Alcohol intake: current Alcohol intake frequency: a few times a week Alcohol type: wine Patient Tobacco Use Status: Current someday Tobacco user Tobacco use type: Cigarette Years Smoked: 30 e-Cigarette/Vaping Use: Never Used Second Hand Smoke Exposure: Yes service: No Current occupational status: unemployed Cognitive needs: No Hearing needs: No Vision needs: No Review of Systems Const All systems reviewed & are unremarkable except as noted in HPI and below Physical Exam Vital Signs: Last Vital Signs Pulse 79 09/12/24 09:20 Resp 16 09/12/24 09:20 BP 118/60 09/12/24 09:20 Pulse Ox 98 09/12/24 09:20 Oxygen Delivery Method Room Air 09/12/24 09:20 BMI result Body Mass Index 28.8 Const General: healthy appearing and comfortable Chest Chest palpation & inspection: normal inspection of the chest Resp Effort & Inspection: normal respiratory effort, able to speak in complete sentences, normal respiratory pattern, no audible wheezes, no cough, respiratory effort not decreased and no grunting Cardio Jugular venous distension: no JVD Extrem Other: She reports awkwardness with walking and relative weakness with dorsiflexion of the left lower extremity left foot. General: Yes no pedal edema and Yes no calf tenderness Assessment & Plan Assessment & Plan (1) Osteoarthritis of left knee: Code(s): M17.12 - Unilateral primary osteoarthritis, left knee Category: Medical Plan: (2) Postlaminectomy syndrome: Code(s): M96.1 - Postlaminectomy syndrome, not elsewhere classified Category: Medical (3) Complex regional pain syndrome i of left lower limb: Code(s): G90.522 - Complex regional pain syndrome I of left lower limb Category: Medical (4) Implantable intrathecal infusion pump present: Code(s): Z96.89 - Presence of other specified functional implants Category: Medical (5) Common peroneal nerve dysfunction: Code(s): S84.10XA - Injury of peroneal nerve at lower leg level, unspecified leg, initial encounter Category: Medical (6) 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 She came today for staple removal with ANMOL drain bulb disconnected from the drainage line. This is risk of the infection. This was explained to the patient. I will see this patient as needed. Signs and symptoms of infection were explained to the patient. She will purchase the thermometer and we will measure body temperature twice a day. If the wound will get infected I would need to perform I&D of the abscess. The patient exhausted all of the conservative and interventional therapy treat her condition. She has intractable pain in the left lower extremity as a result of the previous trauma. She was treated as Complex regional pain syndrome patient. However she is now convinced that her symptoms are coming from peroneal nerve injury. MRI of the left lower extremity was ordered. Unfortunately her insurance company is nonresponsive to our request to approve the MRI. 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
[2024-09-12 09:20] VITALS: BP 118/60; PULSE 79; RESP 16; O2SAT 98; BMI 28.8
== END 2024-09-12 09:42 | disposition home or self-care (01) ==
PROVIDERS: PCP Internal Medicine; Visit Provider Anesthesiology
DX: M17.12 Unilateral primary osteoarthritis, left knee (principal); M96.1 Postlaminectomy syndrome, not elsewhere classified; G90.522 Complex regional pain syndrome I of left lower limb; Z96.89 Presence of other specified functional implants; S84.10XA Injury of peroneal nerve at lower leg level, unspecified leg, initial encounter; S84.12XA Injury of peroneal nerve at lower leg level, left leg, initial encounter
CPT/HCPCS: 99213

== ENCOUNTER → 2024-09-12 09:09 | Outpatient (BNVA) | payer OTHER, SELFPAY | PROVIDERS: PCP Internal Medicine; Visit Provider Anesthesiology | DX: Z48.89 Encounter for other specified surgical aftercare (principal); M17.12 Unilateral primary osteoarthritis, left knee; M96.1 Postlaminectomy syndrome, not elsewhere classified; G90.522 Complex regional pain syndrome I of left lower limb; S84.10XD Injury of peroneal nerve at lower leg level, unspecified leg, subsequent encounter; S84.12XD Injury of peroneal nerve at lower leg level, left leg, subsequent encounter | CPT/HCPCS: 99212 ==

== ENCOUNTER 2024-09-18 10:39 | Outpatient (REF) | payer OTHER, SELFPAY ==
--- NOTE | ~2024-09-18 | MR_ITS ---
EXAMINATION: MR LOWER LEG WITHOUT CONTRAST, LEFT CLINICAL INFORMATION: Left lower leg pain and burning. Paresthesias. Difficulty weightbearing. Lesion of lateral popliteal nerve. COMPARISON: Left knee MRI dated 03/03/2021. TECHNIQUE: Multisequence MR imaging of the left lower leg was obtained without contrast on a high field strength scanner. FINDINGS: BONE: Minimally increased T2 signal along the periphery of the posterior and lateral medullary cavity within the mid/distal tibial diaphysis. Minimal overlying periosteal edema (axial image 34/55). Findings are consistent with a grade 2 stress reaction as per Fredericson's classification system. No fracture line. No additional abnormal marrow signal. No concerning lytic or blastic osseous lesion. MUSCLES/TENDONS: Intact. SOFT TISSUES: No soft tissue mass or fluid collection. MR/MR lower leg LT wo con IMPRESSION: Minimally increased T2 signal along the periphery of the posterior and lateral medullary cavity within the mid/distal tibial diaphysis with minimal overlying periosteal edema. Findings are consistent with a grade 2 stress reaction as per Fredericson's classification system. No fracture line. Electronically signed by: Martin Ratliff MD 09/28/2024 12:53 PM [facility]
== END 2024-09-18 10:40 | disposition home or self-care (01) ==
LOC: HO.MRI 10:39
PROVIDERS: PCP Internal Medicine; Visit Provider Anesthesiology
DX: G57.32 Lesion of lateral popliteal nerve, left lower limb (principal)
CPT/HCPCS: 73718

== ENCOUNTER 2024-09-24 15:48 | Outpatient (AMB) | payer MEDICARE, MEDICAID, SELFPAY ==
[2024-09-24 16:11] VITALS: BP 122/80; PULSE 83; O2SAT 99; BMI 28.6
--- NOTE | 2024-09-24 16:11 | A.OFFPC_ITS ---
Vital Signs 09/24/24 16:11 Height 5 ft 5 in Weight 172 lb 0.4 oz BMI 28.6 BP 122/80 Blood Pressure Location Lt brachial Position Sitting Pulse 83 Pulse Source Pulse Oximeter Pulse Oximetry (%) 99 Oxygen Delivery Method Room Air Intake Visit Reasons: JESSICA, post laminectomy syndrome Allergies No Known Allergies [No Known Allergies*] Allergy (Verified 09/24/24 16:13) Tobacco use date assessed: 01/31/24 Dental Screening Dental Screen Date: 06/13/24 HPI JESSICA, post laminectomy syndrome HPI Details 64-year-old female smoker with a history of post laminectomy syndrome hypothyroidism generalized anxiety disorder last seen in May 2024. Patient is overweight. Patient is up-to-date with mammogram colonoscopy. Patient recently had MRI of the lower extremity results are pending. Patient has been follow-up with pain management had an intrathecal pain pump removal. Patient has been very upset in the office showing that the diagnosis of injury to the peroneal nerve common is the problem and that she ask on why this was not treated with surgery. Discussed with her that I do not see any results of nerve conduction test showing this and yet patient believes that this is the problem. This was a diagnosis that she has seen in 2020 and that wants this done. Discussed with the patient that I do not have that as a result of the testing. [facility] Medical History Breast cancer screening by mammogram Generalized anxiety disorder Left leg paresthesias Bacterial vaginosis Anxiety Opioid use disorder Chronic pain syndrome Postlaminectomy syndrome Complex regional pain syndrome i of left lower limb Primary osteoarthritis of left knee Tobacco abuse Renal lesion Closed left ankle fracture Cervical disc herniation Hypothyroidism Surgical History Hx of cervical discectomy H/O colonoscopy H/O lumbar discectomy Spinal stenosis History of left knee surgery Left ACL tear Family History Father No problems noted. Mother Stroke Paternal Aunt Breast cancer Social History Housing: House Are you a primary critical care physician to a significant other at home: No Do you presently have visiting nurse or other home services: No Alcohol intake: current Alcohol intake frequency: a few times a week Alcohol type: wine Patient Tobacco Use Status: Current someday Tobacco user Tobacco use type: Cigarette Years Smoked: 30 e-Cigarette/Vaping Use: Never Used Second Hand Smoke Exposure: Yes service: No Current occupational status: unemployed Cognitive needs: No Hearing needs: No Vision needs: No Questionnaire Thrive Questionnaire Date Thrive assessed: 01/31/24 AUDIT C Alcohol Use Questionnaire (AUDIT-C) 1. How often do you have a drink containing alcohol?: 2-3 times a week 2. How many drinks containing alcohol do you have on a typical day when you are drinking?: 1 or 2 3. How often do you have six or more drinks on one occasion?: Never Total Score: 3 JESSICA-7 AMB Questionnaire JESSICA-7 Date JESSICA - 7 assessed: 01/31/24 Source: Developed by Drs. Tai Viramontes, Sherlyn Garza, Stalin Guerra and colleagues, with an educational marcie from [employer]. Physical exam (Primary Care) Vital Signs: Last Vital Signs Pulse 83 09/24/24 16:11 BP 122/80 09/24/24 16:11 Pulse Ox 99 09/24/24 16:11 Oxygen Delivery Method Room Air 09/24/24 16:11 BMI result Body Mass Index 28.6 Tobacco/Smoking Status: Tobacco use Status Tobacco use date assessed 01/31/24 09/24/24 16:15 Patient Tobacco Use Status Current someday Tobacco 09/24/24 16:15 Tobacco use type Cigarette 09/24/24 16:15 e-Cigarette/Vaping Use Never Used 09/24/24 16:15 Thrive Assessment: Date of Thrive Assessment Date Thrive assessed 01/31/24 09/24/24 16:15 Const General: alert; No acute distress Eyes Conjunctivae: conjunctivae normal Resp Auscultation: clear to auscultation bilaterally Cardio Rate: regular rate Rhythm: regular rhythm GI Inspection: Yes normal to inspection Extrem General: Yes normal to inspection and No edema Coding Level of Care Code Est Pt Level 4 (70220) Diagnoses Overweight (BMI 25.0-29.9) E66.3 Postlaminectomy syndrome M96.1 Tobacco abuse Z72.0 Acquired hypothyroidism E03.9 Hypothyroidism type: acquired Generalized anxiety disorder F41.1 Assessment & Plan Assessment & Plan (1) Overweight (BMI 25.0-29.9): Code(s): E66.3 - Overweight Category: Medical Plan: Diet and exercise (2) Postlaminectomy syndrome: Code(s): M96.1 - Postlaminectomy syndrome, not elsewhere classified Category: Medical Plan: Patient has been follow-up with the pain management but recently with no relief intrathecal pain pump was taken off. Patient feels that the main problem is injury/impingement of the common peroneal nerve and that this should be the treatment. MRI has been requested and the results are pending. (3) Tobacco abuse: Comment: Quitting discussed She declined Chantix or nicotine patch stopped 10/2023 Doing vapes Code(s): Z72.0 - Tobacco use Category: Medical Plan: Patient is strongly advised to stop smoking! (4) Hypothyroidism: Code(s): E03.9 - Hypothyroidism, unspecified Category: Medical Qualifiers: Hypothyroidism type: acquired Qualified Code(s): E03.9 - Hypothyroidism, unspecified Plan: Continue with thyroid medication but will need blood work. (5) Generalized anxiety disorder: Code(s): F41.1 - Generalized anxiety disorder Category: Medical Plan: continue with med Medications: New [SHOWER Chair] As directed 1 ea 0RF M96.1 - Postlaminectomy syndrome, not elsewhere classified Refilled [Raised toilet seat] As directed 2 ea 0RF G90.522 - Complex regional pain syndrome I of left lower limb [WALK IN SHOWER] As directed 1 ea 0RF M96.1 - Postlaminectomy syndrome, not elsewhere classified
== END 2024-09-24 17:07 | disposition home or self-care (01) ==
PROVIDERS: PCP Internal Medicine; Visit Provider Internal Medicine
DX: E66.3 Overweight (principal); M96.1 Postlaminectomy syndrome, not elsewhere classified; Z72.0 Tobacco use; E03.9 Hypothyroidism, unspecified; F41.1 Generalized anxiety disorder

== ENCOUNTER → 2024-09-24 15:48 | Outpatient (BNVA) | payer OTHER, MEDICARE, MEDICAID, SELFPAY | PROVIDERS: PCP Internal Medicine; Visit Provider Internal Medicine | DX: E66.3 Overweight (principal); Z68.28 Body mass index [BMI] 28.0-28.9, adult; M96.1 Postlaminectomy syndrome, not elsewhere classified; E03.9 Hypothyroidism, unspecified; F41.1 Generalized anxiety disorder; Z72.0 Tobacco use | CPT/HCPCS: 99212 ==

== ENCOUNTER 2024-10-22 10:48 | Outpatient (AMB) | payer OTHER, MEDICARE, MEDICAID, SELFPAY ==
--- NOTE | 2024-10-22 10:51 | MHC.OFFVIS ---
Vital Signs 10/22/24 11:00 Height 5 ft 5 in Weight 175 lb 4 oz BMI 29.2 BP 122/76 Blood Pressure Location Rt brachial Position Sitting Pulse 90 Pulse Source Pulse Oximeter Pulse Oximetry (%) 98 Oxygen Delivery Method Room Air Intake Visit Reasons: MRI FOLLOW UP Allergies No Known Allergies [No Known Allergies*] Allergy (Verified 10/22/24 11:00) HPI Comments Details: Patient presents today for follow up to discuss recent lumbar spine MRI results. Denies any recent cough, cold, infection, fever or other significant changes in medical history since last office visit. MRI showed minimally increased T2 signal along the periphery of the posterior and lateral medullary cavity within the mid/distal tibial diaphysis with minimal overlying periosteal edema. Findings are consistent with a grade 2 stress reaction as per Fredericson's classification system. No fracture line. Patient reports she has not seen Orthopedics since 2013. She is interested to follow up with [facility] Orthopedics for recent MRI findings. PRIOR 09/12/24 Dr. Sosa: Claudia is back in my office after surgery of the removal of the intrathecal pain pump. She presented herself today with ANMOL drain bulb disconnected from the drain. This is risk for infection. I immediately removed the ANMOL drain from the patient's wound and applied dressing. I also removed the piper. I informed the patient that if she will have the pus coming out of the drain site she would need to come immediately to me and I would need to schedule her for the I and D of the abscess. Unfortunately at this time I can not do anything. The risks no redness there is no pathological discharge no swelling in the projection of the wound. The wound healed very well. Sterile dressing with bacitracin applied to the area of the wound after removal of the piper. As of her concern about the MRI of the lower extremity unfortunately the insurance company so far was not very responsive to us on the request of approval of this MRI. This was explained to the patient. Her insurance company is [employer]. She continues to complain on severe intractable pain of the left lower extremity. We tried left sciatic nerve block ultrasound-guided and she reports only minimal pain relief about 50% for the 1st hour after the injection. Therefore any stimulation procedures on the sciatic nerve would not be effective to treat her pain. She denied any help from intrathecal pain pump. She insisted on removal of the device. At the [facility] she was getting sympathetic blockade lumbar spine as well as epidural steroid injection. None of those were helpful for her pain. She was subject of spinal cord stimulator trial in the past which was not working for her. She was receiving pain pump which has only bupivacaine as the acting medicine. Multiple opioid and non opioid medications including morphine and fentanyl were tried for her as well as clonidine. None of those medications in the pump helping her pain. Her pain is on posterior surface of the hip and the posterior surface of the lower leg with radiation to the lateral surface of the foot. She requested me to send her for the MRI of the left lower extremity. She is now convinced that her pain is related to Peroneal nerve injury/neuropathy. My experience with sciatic nerve block goes against the steering however I will be happy if MRI will demonstrate any possible lesions of the common superficial or deep peroneal nerves. Prior: under observation with Complex regional pain syndrome of the left lower extremity secondary to previous trauma.? She is on intrathecal drug delivery therapy she came today here for refill of the pain pump.? She reports that she does not feel pain alleviation too much from the pump.? She is telling me that gabapentin she takes orally helped her pain significantly.? She requests me to increase her dose to maximum 3600 mg a day.? I will do that today.? She requests me to refer her to [facility] consult.? She feels numbness on the left side of her torso with administration of the bolus.? [facility] Medical History Breast cancer screening by mammogram Generalized anxiety disorder Left leg paresthesias Bacterial vaginosis Anxiety Opioid use disorder Chronic pain syndrome Postlaminectomy syndrome Complex regional pain syndrome i of left lower limb Primary osteoarthritis of left knee Tobacco abuse Renal lesion Closed left ankle fracture Cervical disc herniation Hypothyroidism Surgical History Hx of cervical discectomy H/O colonoscopy H/O lumbar discectomy Spinal stenosis History of left knee surgery Left ACL tear Family History Father No problems noted. Mother Stroke Paternal Aunt Breast cancer Social History (Reviewed 10/22/24 @ 10:59 by ALYCIA Iverson Housing: House Are you a primary home health aide caregiver to a significant other at home: No Do you presently have visiting nurse or other home services: No Alcohol intake: current Alcohol intake frequency: a few times a week Alcohol type: wine Patient Tobacco Use Status: Current someday Tobacco user Tobacco use type: Cigarette Years Smoked: 30 e-Cigarette/Vaping Use: Never Used Second Hand Smoke Exposure: Yes service: No Current occupational status: unemployed Cognitive needs: No Hearing needs: No Vision needs: No Review of Systems Const All systems reviewed & are unremarkable except as noted in HPI and below Physical Exam Const General: cooperative, healthy appearing, no acute distress, alert and awake Eyes General: appearance normal, both eyes and all related structures Chest Chest palpation & inspection: normal inspection of the chest Resp Effort & Inspection: normal respiratory effort, able to speak in complete sentences, normal respiratory pattern, no audible wheezes, no cough, respiratory effort not decreased and no grunting Cardio Jugular venous distension: no JVD Skin General skin exam: no rashes or lesions noted Extrem Other: Patient reports pain and parasthesias with walking, weight bearing, putting shoes/socks on and relative weakness with dorsiflexion of the left lower extremity left foot. General: Yes capillary refill normal, Yes no clubbing, cyanosis or edema and Yes no calf tenderness Results Reviewed Results Reviewed: MR LOWER LEG WITHOUT CONTRAST, LEFT 09/18/24 CLINICAL INFORMATION: Left lower leg pain and burning. Paresthesias. Difficulty weightbearing. Lesion of lateral popliteal nerve. COMPARISON: Left knee MRI dated 03/03/2021. TECHNIQUE: Multisequence MR imaging of the left lower leg was obtained without contrast on a high field strength scanner. FINDINGS: BONE: Minimally increased T2 signal along the periphery of the posterior and lateral medullary cavity within the mid/distal tibial diaphysis. Minimal overlying periosteal edema (axial image 34/55). Findings are consistent with a grade 2 stress reaction as per Fredericson's classification system. No fracture line. No additional abnormal marrow signal. No concerning lytic or blastic osseous lesion. MUSCLES/TENDONS: Intact. SOFT TISSUES: No soft tissue mass or fluid collection. IMPRESSION: Minimally increased T2 signal along the periphery of the posterior and lateral medullary cavity within the mid/distal tibial diaphysis with minimal overlying periosteal edema. Findings are consistent with a grade 2 stress reaction as per Fredericson's classification system. No fracture line. 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 Current and past medical and interventional treatments have been resistant to persistent pain in left below knee and into her foot pain with walking, weight bearing or putting on shoes/socks. We will proceed with [facility] Orthopedic evaluation given recent MRI findings as noted above. Patient currently takes pregabalin 100 mg TID prescribed by provider in [place] and will reach out to them for refills. All questions and concerns have been answered and patient agreed with the treatment plan. Follow up after Orthopedic evaluation and sooner as needed. 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
[2024-10-22 11:00] VITALS: BP 122/76; PULSE 90; O2SAT 98; BMI 29.2
== END 2024-10-22 11:17 | disposition home or self-care (01) ==
PROVIDERS: PCP Internal Medicine; Visit Provider Nurse Practitioner Family
DX: G90.522 Complex regional pain syndrome I of left lower limb (principal); G89.4 Chronic pain syndrome; M79.605 Pain in left leg; S84.12XA Injury of peroneal nerve at lower leg level, left leg, initial encounter
CPT/HCPCS: 99214; G2211

== ENCOUNTER → 2024-10-22 10:48 | Outpatient (BNVA) | payer OTHER, MEDICARE, MEDICAID, SELFPAY | PROVIDERS: PCP Internal Medicine; Visit Provider Nurse Practitioner Family | DX: G90.522 Complex regional pain syndrome I of left lower limb (principal); G89.4 Chronic pain syndrome; M79.605 Pain in left leg; S84.12XA Injury of peroneal nerve at lower leg level, left leg, initial encounter | CPT/HCPCS: 99212 ==

== ENCOUNTER 2024-12-31 08:27 | Outpatient (REF) | payer OTHER, MEDICARE, MEDICAID, SELFPAY ==
--- NOTE | ~2024-12-31 | XR_ITS ---
CLINICAL HISTORY: M79.605 - Pain in left leg Left tibia fibula two views Comparison: None Findings: No acute fracture or dislocation identified. No acute focal bony abnormality. No radiopaque foreign body noted. Impression: No acute bony abnormality This document has been electronically signed by: Donald Rankin MD on 01/01/2025 18:30:41
--- OUTSIDE RECORDS SUMMARY | 2024-12-31 08:49 | XMS_ITS | Encounter Summary ---
Author Organization Formerly [facility] Address [address] [place] [address] Care Team Providers Care Carton Packaging Machine Operator Name Role Phone Hayden Man MD Primary Care Provider [phone] Maggy Swartz MD Unavailable [phone] Encounter Details Date Type Department Care Team (Late st Contact Info) Description 03/24/2021 Scanned Document [facility] Neurosurgery [place] [address] [phone] Bibi Maza PA Valid Address Needed Social History Tobacco Use Types Packs/Day Years Used Date Smoking Tobacco: Every Day Cigarettes 0.3 30 Smokeless Tobacco: Never Alcohol Use Standard Drinks/Week Comments Yes 0 (1 standard drink = 0.6 oz pur e alcohol) 3 glasses of wine per week Sex and Gender Information Value Date Recorded Sex Assigned at Not on file Gender Identity Female 06/19/2020 9:04 PM EDT Sexual Orientation Heterosexual (straight) 06/19 9:04 PM EDT documented as of this encounter Plan of Treatment Not on file documented as of this encounter Visit Diagnoses Not on filedocumented in this encounter Care Teams Carton Packaging Machine Operator Relationship Specialty Start Date End Date Hayden Man MD [address] [place] [address] Dr Vo [address] [place] [address] PCP - General Internal Medicine 05/06/20 Maggy Swartz MD [address] [place] [address] Surgery, Neurosurgery 08/20/20 documented as of this encounter
--- OUTSIDE RECORDS SUMMARY | 2024-12-31 08:49 | XMS_ITS | Encounter Summary ---
Author Organization [facility] Address [address] [place] [address] Care Team Providers Care Test Driver Name Role Phone Hayden Man MD Primary Care Provider [phone] Maggy Swartz MD Unavailable [phone] Reason for Visit * Reason Comments Other Encounter Details Date Type Department Care Team (Late st Contact Info) Description 04/03/2021 Telephone [facility] Urologic Surgery [address] [phone] Hardik Reese MD [address] [place] [address] Other Social History Tobacco Use Types Packs/Day Years [...] PM EDT documented as of this encounter Miscellaneous Notes * Telephone Encounter - Jacoby East LPN - 04/03/2021 10:53 AM EDT Placed new order for Ct abdomen with and without contrast to [facility]. documented in this encounter Plan of Treatment Not on file documented as of this encounter Visit Diagnoses Not on filedocumented in this encounter Care Teams Test Driver Relationship Specialty Start Date End Date Hayden Man MD [address] [place] [address] [facility] [address] [place] [address] PCP - General Internal Medicine 05/06/20 Maggy Swartz MD [address] [place] [address] Surgery, Neurosurgery 08/20/20 documented as of this encounter
--- OUTSIDE RECORDS SUMMARY | 2024-12-31 08:49 | XMS_ITS | Encounter Summary ---
Author Organization [facility] Address [address] [place] [address] Care Team Providers Care Internal Medicine Nurse Practitioner Name Role Phone Hayden Man MD Primary Care Provider [phone] Maggy Swartz MD Unavailable [phone] Encounter Details Date Type Department Care Team (Late st Contact Info) Description 09/11/2021 Scanned Document [facility] Neurosurgery [place] [address] [phone] Maggy Swartz MD [address] [address] Social History Tobacco Use Types Packs/Day Years [...] on filedocumented in this encounter Care Teams Internal Medicine Nurse Practitioner Relationship Specialty Start Date End Date Hayden Man MD [address] [place] [address] [place] [address] PCP - General Internal Medicine 05/06/20 Maggy Swartz MD [address] [place] [address] Surgery, Neurosurgery 08/20/20 documented as of this encounter
--- OUTSIDE RECORDS SUMMARY | 2024-12-31 08:49 | XMS_ITS | Encounter Summary ---
Author Organization [facility] Address [address] [place] [address] Care Team Providers Care Bilingual Account Manager Name Role Phone Hayden Man MD Primary Care Provider [phone] Maggy Swartz MD Unavailable [phone] Encounter Details Date Type Department Care Team (Late st Contact Info) Description 12/16/2020 Scanned Document [facility] Neurosurgery [address] [place] [address] Bibi Maza PA Valid Address Needed Social [...] Orientation Heterosexual (straight) 06/19 9:04 PM EDT COVID-19 Exposure Response Date Recorded In the last month, have you been in contact with someone who was confirmed or suspected to have Coronavirus / COVID-19? No / Unsure 12/12/2020 8:47 AM EST documented as of this encounter Plan of Treatment Not on file documented as of this encounter Visit Diagnoses Not on filedocumented in this encounter Care Teams Bilingual Account Manager Relationship Specialty Start Date End Date Hayden Man MD [address] [place] [address] [place] [address] PCP - General Internal Medicine 05/06/20 Maggy Swartz MD [address] [place] [address] Surgery, Neurosurgery 08/20/20 documented as of this encounter
--- OUTSIDE RECORDS SUMMARY | 2024-12-31 08:49 | XMS_ITS | Encounter Summary ---
Author Organization [facility] Address [address] [place] [address] Care Team Providers Care Poultry Farmworker Name Role Phone Hayden Man MD Primary Care Provider [phone] Maggy Swartz MD Unavailable [phone] Encounter Details Date Type Department Care Team (Late st Contact Info) Description 12/16/2020 Scanned Document [facility] Neurosurgery [address] [place] [address] Bibi Maza PA Valid Address Needed Social [...] on filedocumented in this encounter Care Teams Poultry Farmworker Relationship Specialty Start Date End Date Hayden Man MD [address] [place] [address] [place] [address] PCP - General Internal Medicine 05/06/20 Maggy Swartz MD [address] [place] [address] Surgery, Neurosurgery 08/20/20 documented as of this encounter
--- OUTSIDE RECORDS SUMMARY | 2024-12-31 08:49 | XMS_ITS | Encounter Summary ---
Author Organization [facility] Address [address] [place] [address] Care Team Providers Care Contact Representative Name Role Phone Hayden Man MD Primary Care Provider [phone] Maggy Swartz MD Unavailable [phone] Encounter Details Date Type Department Care Team (Late st Contact Info) Description 02/02/2021 Scanned Document [facility] Neurosurgery [place] [address] [address] Maggy Swartz MD [address] [address] Social History Tobacco Use Types Packs/Day Years [...] on filedocumented in this encounter Care Teams Contact Representative Relationship Specialty Start Date End Date Hayden Man MD [address] [place] [address] [place] [address] PCP - General Internal Medicine 05/06/20 Maggy Swartz MD [address] [place] [address] Surgery, Neurosurgery 08/20/20 documented as of this encounter
--- OUTSIDE RECORDS SUMMARY | 2024-12-31 08:49 | XMS_ITS | Encounter Summary ---
Author Organization [facility] Address [address] [place] [address] Care Team Providers Care Manager Monitoring Name Role Phone Hayden Man MD Primary Care Provider [phone] Maggy Swartz MD Unavailable [phone] Encounter Details Date Type Department Care Team (Late st Contact Info) Description 07/22/2021 Scanned Document [facility] Neurosurgery [place] [address] [address] Maggy Swartz MD [address] [address] Social History Tobacco Use Types Packs/Day Years [...] on filedocumented in this encounter Care Teams Manager Monitoring Relationship Specialty Start Date End Date Hayden Man MD [address] [place] [address] [place] [address] PCP - General Internal Medicine 05/06/20 Maggy Swartz MD [address] [place] [address] Surgery, Neurosurgery 08/20/20 documented as of this encounter
--- OUTSIDE RECORDS SUMMARY | 2024-12-31 08:49 | XMS_ITS | Encounter Summary ---
Author Organization [facility] Address [address] [place] [address] Care Team Providers Care Human Development Professor Name Role Phone Hayden Man MD Primary Care Provider [phone] Maggy Swartz MD Unavailable [phone] Encounter Details Date Type Department Care Team (Late st Contact Info) Description 12/16/2020 Scanned Document [facility] Neurosurgery [address] [place] [address] Bibi Maza PA Valid Address Needed Social [...] on filedocumented in this encounter Care Teams Human Development Professor Relationship Specialty Start Date End Date Hayden Man MD [address] [place] [address] [place] [address] PCP - General Internal Medicine 05/06/20 Maggy Swartz MD [address] [place] [address] Surgery, Neurosurgery 08/20/20 documented as of this encounter
--- OUTSIDE RECORDS SUMMARY | 2024-12-31 08:49 | XMS_ITS | Encounter Summary ---
Author Organization [facility] Address [address] [place] [address] Care Team Providers Care Entry Level Sales Representative Name Role Phone Hayden Man MD Primary Care Provider [phone] Maggy Swartz MD Unavailable [phone] Encounter Details Date Type Department Care Team (Late st Contact Info) Description 02/02/2021 Scanned Document [facility] Neurosurgery [place] [address] [address] Maggy Swartz MD [address] [address] Social History Tobacco Use Types Packs/Day Years [...] on filedocumented in this encounter Care Teams Entry Level Sales Representative Relationship Specialty Start Date End Date Hayden Man MD [address] [place] [address] [place] [address] PCP - General Internal Medicine 05/06/20 Maggy Swartz MD [address] [place] [address] Surgery, Neurosurgery 08/20/20 documented as of this encounter
--- OUTSIDE RECORDS SUMMARY | 2024-12-31 08:49 | XMS_ITS ---
Author Name [facility] History of Medication Use Medication Directions Dispensed Refills Start Date End Date Stat us methylPREDNISolone (MEDROL DOSEPAK) 4 MG tablet follow package directions 10/08/2020 active Multiple Vitamin tablet Take 1 tablet by mouth every morning. Stop on 09/01/2020. active pregabalin (LYRICA) 75 MG capsule Take 1 capsule (75 mg total) by mouth 2 (two) times a day. 06/02/2021 active polyethylene glycol (MiraLax) 17 GM/SCOOP powder Take 17 g by mouth daily. 09/15/2020 active magnesium oxide 400 (241.3 Mg) MG Tab tablet Take 1 tablet (400 mg total) by mouth every morning. 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
--- OUTSIDE RECORDS SUMMARY | 2024-12-31 08:49 | XMS_ITS | Encounter Summary ---
Author Organization [facility] Address [address] [place] [address] Care Team Providers Care Fly Worker Name Role Phone Hayden Man MD Primary Care Provider [phone] Maggy Swartz MD Unavailable [phone] Reason for Visit * Reason Comments Other needs crea ordered Encounter Details Date Type Department Care Team (Late st Contact Info) Description 12/12/2020 Telephone [facility] Urologic Surgery [address] [phone] Hardik Reese MD [address] [place] [address] Other (needs crea ordered) Social History Tobacco Use Types Packs/Day Years [...] AM EST documented as of this encounter Miscellaneous Notes * Telephone Encounter - Jacoby East LPN - 12/16/2020 10:40 AM EST Spoke with the patient, advised we need a creatinine lab done prior to getting IV contrast, She states she was told it would be PO contrast. I advised I would contact [facility] as we do notuse PO contrast for the CT scan of the abdomen. She is getting her labs done today. * Telephone Encounter - Jacoby East LPN - 12/12/2020 2:42 PM EST Order for creatinine to be drawn at [email or web address]. documented in this encounter Plan of Treatment Not on file documented as of this encounter Visit Diagnoses Not on filedocumented in this encounter Care Teams Fly Worker Relationship Specialty Start Date End Date Po, Hayden Serrano MD [address] [place] [address] Dr Vo [address] [place] [address] PCP - General Internal Medicine 05/06/20 Maggy Swartz MD [address] [place] [address] Surgery, Neurosurgery 08/20/20 documented as of this encounter
--- OUTSIDE RECORDS SUMMARY | 2024-12-31 08:50 | XMS_ITS | Encounter Summary ---
Author Organization [facility] Address [address] [place] [address] Care Team Providers Care Machine Tracer Name Role Phone Hayden Man MD Primary Care Provider [phone] Maggy Swartz MD Unavailable [phone] Encounter Details Date Type Department Care Team (Late st Contact Info) Description 08/22/2020 Scanned Document [facility] Neurosurgery [place] [address] [address] Maggy Swartz MD 85 [facility] [address] [place] [address] Social History Tobacco Use Types Packs/Day Years [...] or suspected to have Coronavirus / COVID-19? Unable to assess 08/25/2020 4:48 PM EDT documented as of this encounter Plan of Treatment Not on file documented as of this encounter Visit Diagnoses Not on filedocumented in this encounter Care Teams Machine Tracer Relationship Specialty Start Date End Date Hayden Man MD NPI: [id number] [place] [address] [place] [address] PCP - General Internal Medicine 05/06/20 Maggy Swartz MD [address] [place] [address] Surgery, Neurosurgery 08/20/20 documented as of this encounter
--- OUTSIDE RECORDS SUMMARY | 2024-12-31 08:50 | XMS_ITS | Clinical Summary ---
Author Organization [facility] Address [address] [place] [address] Care Team Providers Care Wire Tinner Name Role Phone Hayden Man MD Primary Care Provider [phone] Maggy Swartz MD Unavailable [phone] Allergies No known active allergies Medications Medication Sig Dispensed Refills Start Date End Date Status Acetaminophen 500 MG coapsule Take 1 capsule (500 mg total) by mouth 4 times daily (every 6 hours) as needed. Do not take day of surgery Active ALPRAZolam (XANAX) 0.25 MG tablet Take 1 tablet (0.25 mg total) by mouth nightly as needed. Take the night before surgery 04/11/2020 Active levothyroxine (SYNTHROID, LEVOTHROID) 88 MCG tablet Take 1 tablet (88 mcg total) by mouth every morning. Take day of surgery Active ibuprofen (MOTRIN) 200 MG tablet Take 2 tablets (400 mg total) by mouth 4 times daily (every 6 hours) as needed for mild pain. Stop on 09/01/2020. Active Multiple Vitamin tablet Take 1 tablet by mouth every morning. Stop on 09/01/2020. Active magnesium oxide 400 (241.3 Mg) MG Tab tablet Take 1 tablet (400 mg total) by mouth every morning. Stop on 09/01/2020 Active ferrous sulfate 325 (65 FE) MG tablet Take 1 tablet (325 mg total) by mouth. Mondays, Wednesdays, Fridays. Stop on 09/01/2020 Active ascorbic acid (VITAMIN C) 500 MG tabletIndications:Gwen mbar disc herniation with radiculopathy Take 2 tablets (1,000 mg total) by mouth daily. Do not start before September 11, 2020. 60 tablet 09/11/2020 Active tiZANidine (ZANAFLEX) 2 MG tabletIndications:Gwen mbar disc herniation with radiculopathy Take 1 tablet (2 mg total) by mouth 3 times daily (every 8 hours) as needed for muscle spasms. 90 tablet 3 09/10/2020 Active oxyCODONE-acetaminop hen (PERCOCET) 5-325 mg per tabletIndications:Gwen mbar disc herniation with radiculopathy,Spondy lolisthesis of lumbar region,Spinal stenosis, lumbar region, without neurogenic claudication Take 1 tablet by mouth every 4 (four) hours as needed for moderate pain or severe pain. May take 1 or two tablets ever 4hrs if needed for pain. Max Daily Amount: 6 tablets 21 tablet 09/13/2020 Active polyethylene glycol (MiraLax) 17 GM/SCOOP powderIndications:Gwen mbar disc herniation with radiculopathy Take 17 g by mouth daily. 510 g 09/15/2020 Active methylPREDNISolone (MEDROL DOSEPAK) 4 MG tabletIndications:St atus post lumbar spinal fusion follow package directions 21 tablet 10/08/2020 Active pregabalin (LYRICA) 75 MG capsuleIndications:L umbar disc herniation with radiculopathy,Status post lumbar discectomy Take 1 capsule (75 mg total) by mouth 2 (two) times a day. 60 capsule 2 06/02/2021 Active DULoxetine (CYMBALTA) 60 MG capsule 09/19/2022 Active gabapentin (NEURONTIN) 600 MG tablet 07/18/2022 Active Active Problems Problem Noted Date Diagnosed Date Complex renal cyst 06/26/2021 Entrapment neuropathy of left common peroneal ne rve 12/27/2020 Renal mass, left 12/26/2020 Renal cyst 12/12/2020 Microscopic hematuria 12/12/2020 Postoperative visit 07/11/2020 Spondylolisthesis of lumbar region 05/24/2020 Lumbar disc herniation with radiculopathy 2019 Spinal stenosis, lumbar jayson on, without neurogenic claudication 05/24/2020 Other specified hypothyroidism Family History Medical History Relation Name Comments No Known Problems Brother 1 No Known Problems Brother 2 No Known Problems Daughter Thyroid disease Father Stroke Mother No Known Problems Sister 1 No Known Problems Sister 2 No Known Problems Sister 3 No Known Problems Son Relation Name Status Comments Brother 1 Alive Brother 2 Alive Daughter Alive Father Alive Mother Alive Sister 1 Alive Sister 2 Alive Sister 3 Alive Son Alive Social History Tobacco Use Types Packs/Day Years Used Date Smoking Tobacco: Every Day Cigarettes 0.3 30 Smokeless Tobacco: Never Tobacco Cessation:Ready to Q uit: Not Asked; Counseling Given: Not Answered Alcohol Use Standard Drinks/Week Comments Yes 0 (1 standard drink = 0.6 oz pur e alcohol) 3 glasses of wine per week Sex and Gender Information Value Date Recorded Sex Assigned at Not on file Gender Identity Female 06/19/2020 9:04 PM EDT Sexual Orientation Heterosexual (straight) 06/19 9:04 PM EDT Last Filed Vital Signs Vital Sign Reading Time Taken Comments Blood Pressure 120/70 12/22/2020 10:35 AM EST Pulse 86 12/12/2020 9:00 AM EST Temperature 36.7 ??C (98.1 ??F) 12/22/2020 10:[address] Respiratory Rate 18 09/10/2020 1:15 PM EST Oxygen Saturation 99% 12/12/2020 9:00 AM EST Inhaled Oxygen Concentration - - Weight 77.1 kg (170 lb) 09/25/2024 12:58 PM EST per pt Height 162.6 cm (5' 4 ) 09/25/2024 12:58 PM EST per pt Body Mass Index 29.18 09/25/2024 12:58 PM EST Plan of Treatment Health Maintenance Due Date Last Done Comments Hepatitis C Virus Screening 1962 Pneumococcal Vaccine: Pediat carter (0-5 Years) and At-Risk Patients (6 to 49 Years) (1 of 2 - PCV) 1968 HIV Screening 1975 DTaP/Tdap/Td Vaccines (1 - Tdap) 1981 Pneumococcal Vaccines 50+ (1 of 2 - PCV) 1981 Pap Smear (Ages 21-65) 1983 Mammogram 2002 Colonoscopy 2007 Zoster (Shingles) Vaccine (1 of 2) 2012 Influenza Vaccine 05/31/2024 08/26/2019 COVID-19 Vaccine ( - 2023-2 5 season) 2024 RSV Vaccine 60 years and old er and Patients (1 - 1-dose 75+ series) 2037 Hepatitis B Vaccines Aged Out No long er eligible based on patient's age to complete this topic Medical Devices Implanted Type Area Drip Pumper Device Identifier Shelf Expiration Date Model / Serial / Lot [id number] Spacer Spinal [id number] Cpstn Peek Ptc Lmbr Intrbd Fs Sterl - [id number] Implanted:Qty: 1 on 09/08/2020 by Maggy Swartz MD at [facility] Cage N/A: Spine Lumbar [employer] MINIMALLY INVASIVE T 10/20/2026 [id number] / / [id number] Ashok Spinal 70mm 5.5mm Cd Hzn Crv Ti Cp4 Nonst - [id number] Implanted:Qty: 2 on 09/08/2020 by Maggy Swartz MD at [facility] Nail/Ashok N/A: Spine Lumbar [employer] MINIMALLY INVASIVE T [id number] / / [id number] Screw Bone Spine Solera Cd Hzn 40mm Cocr 5.5mm Ma Nonst 5.5 - [id number] Implanted:Qty: 2 on 09/08/2020 by Maggy Swartz MD at [facility] Spine N/A: Spine Lumbar [employer] MINIMALLY INVASIVE T [id number] / / [id number] Screw Bone Spine Cd Hzn Solera 45mm Ti Cocr 5.5mm Ma Nonst - [id number] Implanted:Qty: 4 on 09/08/2020 by Maggy Swartz MD at [facility] Spine N/A: Spine Lumbar [employer] MINIMALLY INVASIVE T [id number] / / [id number] Screw Set Ti Spine Brk Off Cd Hzn Nonst 5.5 Mm Ashok - [id number] Implanted:Qty: 6 on 09/08/2020 by Maggy Swartz MD at [facility] Spine N/A: Spine Lumbar [employer] MINIMALLY INVASIVE T [id number] / / [id number] Filler Bone Void 10cc Dbx Algrf Frzdr Putty - [id number] Implanted:Qty: 1 on 09/08/2020 by Maggy Swartz MD at [facility] Void Filler N/A: Spine Lumbar MUSCULOSKELETAL TRANSPLANT FOU 03/19/2022 [id number] / [id number] / [id number] Filler Bone Void 10cc Dbx Algrf Frzdr Putty - [id number] Implanted:Qty: 1 on 09/08/2020 by Maggy Swartz MD at [facility] Void Filler N/A: Spine Lumbar MUSCULOSKELETAL TRANSPLANT FOU 12/13/2021 [id number] / [id number] / [id number] Filler Bone Void 10cc Dbx Algrf Frzdr Putty - [id number] Implanted:Qty: 1 on 09/08/2020 by Maggy Swartz MD at [facility] Void Filler N/A: Spine Lumbar MUSCULOSKELETAL TRANSPLANT FOU 03/19/2022 [id number] / [id number] / Advance Directives * Full Code (Latest Code Status on File) Date Activated Date Inactivated Comments 09/08/2020 8:09 PM * Full Code Date Activated Date Inactivated Comments 09/08/2020 9:46 AM 09/08/2020 8:09 PM * Full Code Date Activated Date Inactivated Comments 06/25/2020 3:59 PM 09/08/2020 9:10 AM * Full Code Date Activated Date Inactivated Comments 06/25/2020 8:24 AM 06/25/2020 3:59 PM Care Teams Wire Tinner Relationship Specialty Start Date End Date PoHayden MD [address] [place] [address] Dr Vo [address] [place] [address] [place] [address] PCP - General Internal Medicine 05/06/20 Maggy Swartz MD [address] [place] [address] Surgery, Neurosurgery 08/20/20
--- OUTSIDE RECORDS SUMMARY | 2024-12-31 08:50 | XMS_ITS | Encounter Summary ---
Author Organization [facility] Address [address] [place], [place] [address] Care Team Providers Care Activities Attendant Name Role Phone Hayden Man MD Primary Care Provider [phone] Maggy Swartz MD Unavailable [phone] Encounter Details Date Type Department Care Team (Late st Contact Info) Description 09/17/2020 Scanned Document [facility] Neurosurgery [place] [address] [address] Maggy Swartz MD 85 [facility] [address] [place] [address] Social History Tobacco Use Types Packs/Day [...] have Coronavirus / COVID-19? No / Unsure 09/08/2020 9:01 AM EST documented as of this encounter Plan of Treatment Not on file documented as of this encounter Visit Diagnoses Not on filedocumented in this encounter Care Teams Activities Attendant Relationship Specialty Start Date End Date Hayden Man MD NPI: [id number] [place] [address] Dr [address] [place] [address] PCP - General Internal Medicine 05/06/20 Maggy Swartz MD [address] [place] [address] Surgery, Neurosurgery 08/20/20 documented as of this encounter
--- OUTSIDE RECORDS SUMMARY | 2024-12-31 08:50 | XMS_ITS | Encounter Summary ---
Author Organization Formerly [facility] Address [address] [place] [address] Care Team Providers Care Manager Department Name Role Phone Hayden Man MD Primary Care Provider [phone] Maggy Swartz MD Unavailable [phone] Reason for Visit * Reason Comments Medication Refill Encounter Details Date Type Department Care Team (Late st Contact Info) Description 09/27/2020 Refill [facility] Neurosurgery [address] [place] [phone] Bibi Maza PA Valid Address Needed Lumbar disc herniation with radiculopathy Social History Tobacco Use Types Packs/Day Years [...] encounter Miscellaneous Notes * Telephone Encounter - RONALD Arciniega - 09/29/2020 11:39 AM EST Prescribed on separate order documented in this encounter Plan of Treatment Not on file documented as of this encounter Visit Diagnoses Diagnosis Lumbar disc herniation with radiculopathy Displacement of lumbar intervertebral disc without myelopathy documented in this encounter Care Teams Manager Department Relationship Specialty Start Date End Date Hayden Man MD [address] [place] [address] [address] [place] [address] PCP - General Internal Medicine 05/06/20 Maggy Swartz MD [address] [place] [address] Surgery, Neurosurgery 08/20/20 documented as of this encounter
== END 2024-12-31 08:28 | disposition home or self-care (01) ==
LOC: HO.HOSX 08:27
PROVIDERS: Visit Provider Physician Assistant
DX: M79.605 Pain in left leg (principal)
CPT/HCPCS: 73590; 99202

== ENCOUNTER → 2024-12-31 14:03 | Outpatient (BNV) | payer OTHER, MEDICARE, MEDICAID, SELFPAY | PROVIDERS: Visit Provider Radiology Diagnostic Radiology | DX: M79.662 Pain in left lower leg (principal) | CPT/HCPCS: 73590 ==

== ENCOUNTER 2024-12-31 14:04 | Outpatient (AMB) | payer OTHER, MEDICARE, MEDICAID, SELFPAY ==
--- NOTE | 2024-12-31 14:49 | MHC.OFFVIS ---
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 Patient was seen by her PCP, MRI was recently done. Patient reports ongoing pain for about 11 years. She has had injections in the past with no relief. Patient notices her pain is on the lateral and medial aspect the knee. She notices that her pain is worse when she is wear a supported shoe. She has tried and failed taking gabapentin. 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 The patient has an extensive past medical history of low back pain status post shiva placement. She was also seen by our pain management Department at [facility] and had a sciatic nerve block along with a pain pump without significant relief. She states she had a recent EMG/nerve conduction study of the lower extremities; however this was not available for my review today. When asked if her lower extremity pain has been present since her spine surgery she believes it may be consistent. She is on pregabalin 100 mg she states she takes 600 mg a day. This is prescribed by her primary care provider. When asked about her lower extremity she states she has significant pain in the lower extremity and she can not even tolerate clothing on the leg or on her foot or ankle due to the hypersensitivity. When asked if she has any specific knee pain, she denies. Her complaints is primarily diffuse pain that is in the nature of burning and hypersensitivity from the posterior thigh all the way down her leg. She states the anterior portion of the thigh is spared. However anterior posterior and diffuse foot and ankle is burning and hypersensitive. [facility] Medical History Breast cancer screening by mammogram Generalized anxiety disorder Left leg paresthesias Bacterial vaginosis Anxiety Opioid use disorder Chronic pain syndrome Postlaminectomy syndrome Complex regional pain syndrome i of left lower limb Primary osteoarthritis of left knee Tobacco abuse Renal lesion Closed left ankle fracture Cervical disc herniation Hypothyroidism Surgical History Hx of cervical discectomy H/O colonoscopy H/O lumbar discectomy Spinal stenosis History of left knee surgery Left ACL tear Family History Father No problems noted. Mother Stroke Paternal Aunt Breast cancer Social History Housing: House Are you a primary date night caregiver to a significant other at home: No Do you presently have visiting nurse or other home services: No Alcohol intake: current Alcohol intake frequency: a few times a week Alcohol type: wine Patient Tobacco Use Status: Current someday Tobacco user Tobacco use type: Cigarette Years Smoked: 30 e-Cigarette/Vaping Use: Never Used Second Hand Smoke Exposure: Yes service: No Current occupational status: unemployed Cognitive needs: No Hearing needs: No Vision needs: No Review of Systems Const All systems reviewed & are unremarkable except as noted in HPI and below Physical Exam Vital Signs: BMI result Body Mass Index 28.3 Const General: cooperative and no acute distress Orientation/consciousness: patient oriented x3 Resp Effort & Inspection: normal respiratory effort and able to speak in complete sentences Cardio Peripheral pulses: Peripheral pulses 2+ throughout Neuro General: patient oriented x3 Extrem Other: Left lower extremity is normal to inspection. She does have hypersensitivity over the knee into the tibia. She has full range of motion of the knee passively. Pulses present. Assessment & Plan Assessment & Plan (1) Pain of left lower extremity: Code(s): M79.605 - Pain in left leg Category: Medical Plan: Patient had an MRI of the left lower extremity which was significant for a grade 2 stress reaction. I am not able to adequately palpate this region on her tibia given the significant amount of hypersensitivity. At this time I encouraged her to see Dr. Goyal our embossed or impressed lettering painter to see if there is any nonoperative management to help with her chronic pain syndrome/radicular symptoms of the left lower extremity. I know that she has seen pain management and tried a sciatic nerve block along with a pain pump without relief but I do feel with the help of Dr. Goyal she may be able to better explain what is going on and or further evaluate with additional studies. I also explained she may have some thing going on with her spinal surgery that may need to be further investigated and if that is the case Dr. Tavares would be able to evaluate that and refer her if needed. Patient did express understanding and will see me back as needed. Orders: Orders XR tibia fibula LT 2V Today M79.605 - Pain in left leg Coding Level of Care Code New Pt Level 4 (35627) Complex EM visit Add On G2211 Diagnoses Pain of left lower extremity M79.607
[2024-12-31 14:57] VITALS: BMI 28.3
--- OUTSIDE RECORDS SUMMARY | 2024-12-31 16:53 | XMS_ITS | Encounter Summary ---
Author Organization [facility] Address [address] [place] [address] Care Team Providers Care Credit Assessment Analyst Name Role Phone Hayden Man MD Primary Care Provider [phone] Maggy Swartz MD Unavailable [phone] Reason for Visit * Reason Comments Other needs crea ordered Encounter Details Date Type Department Care Team (Late st Contact Info) Description 12/12/2020 Telephone [facility] Urologic Surgery [address] [phone] Hardik Reese MD [address] [place] [address] Other (needs crea ordered) Social History [...] PO contrast. I advised I would contact [facility] as we do notuse PO contrast for the CT scan of the abdomen. She is getting her labs done today. * Telephone Encounter - Jacoby East LPN - 12/12/2020 2:42 PM EST Order for creatinine to be drawn at [facility] documented in this encounter Plan of Treatment Not on file documented as of this encounter Visit Diagnoses Not on filedocumented in this encounter Care Teams Credit Assessment Analyst Relationship Specialty Start Date End Date Po, Hayden Serrano MD [address] [place] [address] Dr Vo [address] [place] [address] PCP - General Internal Medicine 05/06/20 Maggy Swartz MD [address] [place] [address] Surgery, Neurosurgery 08/20/20 documented as of this encounter
--- OUTSIDE RECORDS SUMMARY | 2024-12-31 16:53 | XMS_ITS | Encounter Summary ---
Author Organization [facility] Address [address] [place], [place] [address] Care Team Providers Care Wire Drawing Setter Name Role Phone Hayden Man MD Primary Care Provider [phone] Maggy Swartz MD Unavailable [phone] Encounter Details Date Type Department Care Team (Late st Contact Info) Description 09/17/2020 Scanned Document [facility] Neurosurgery [place] [address] [address] Maggy Swartz MD 85 [facility] [address] [place] [address] Social History Tobacco Use Types Packs/Day [...] on filedocumented in this encounter Care Teams Wire Drawing Setter Relationship Specialty Start Date End Date Hayden Man MD NPI: [id number] [place] [address] Dr Vo [address] [place] [address] PCP - General Internal Medicine 05/06/20 Maggy Swartz MD [address] [place] [address] Surgery, Neurosurgery 08/20/20 documented as of this encounter
--- OUTSIDE RECORDS SUMMARY | 2024-12-31 16:53 | XMS_ITS | Encounter Summary ---
Author Organization [facility] Address [address] [place] [address] Care Team Providers Care Adventure Challenge Instructor Name Role Phone Hayden Man MD Primary Care Provider [phone] Maggy Swartz MD Unavailable [phone] Encounter Details Date Type Department Care Team (Late st Contact Info) Description 07/22/2021 Scanned Document [facility] Neurosurgery [place] [address] [phone] Maggy Swartz MD [address] [address] Social History Tobacco Use Types Packs/Day Years [...] on filedocumented in this encounter Care Teams Adventure Challenge Instructor Relationship Specialty Start Date End Date Hayden Man MD [address] [place] [address] [place] [address] PCP - General Internal Medicine 05/06/20 Maggy Swartz MD [address] [place] [address] Surgery, Neurosurgery 08/20/20 documented as of this encounter
--- OUTSIDE RECORDS SUMMARY | 2024-12-31 16:53 | XMS_ITS | Encounter Summary ---
Author Organization [facility] Address [address] [place] [address] Care Team Providers Care Real Estate Leasing Manager Name Role Phone Hayden Man MD Primary Care Provider [phone] Maggy Swartz MD Unavailable [phone] Encounter Details Date Type Department Care Team (Late st Contact Info) Description 09/11/2021 Scanned Document [facility] Neurosurgery [place] [address] [address] Maggy Swartz MD [address] [address] Social History Tobacco Use Types Packs/Day Years [...] on filedocumented in this encounter Care Teams Real Estate Leasing Manager Relationship Specialty Start Date End Date Hayden Man MD [address] [place] [address] [place] [address] PCP - General Internal Medicine 05/06/20 Maggy Swartz MD [address] [place] [address] Surgery, Neurosurgery 08/20/20 documented as of this encounter
--- OUTSIDE RECORDS SUMMARY | 2024-12-31 16:53 | XMS_ITS | Encounter Summary ---
Author Organization [facility] Address [address] [place] [address] Care Team Providers Care Skating Rink Ice Maker Name Role Phone Hayden Man MD Primary Care Provider [phone] Maggy Swartz MD Unavailable [phone] Encounter Details Date Type Department Care Team (Late st Contact Info) Description 12/16/2020 Scanned Document [facility] Neurosurgery [address] [place] [address] Bibi Maza PA Valid Address Needed Social [...] on filedocumented in this encounter Care Teams Skating Rink Ice Maker Relationship Specialty Start Date End Date Hayden Man MD [address] [place] [address] [place] [address] PCP - General Internal Medicine 05/06/20 Maggy Swartz MD [address] [place] [address] Surgery, Neurosurgery 08/20/20 documented as of this encounter
--- OUTSIDE RECORDS SUMMARY | 2024-12-31 16:53 | XMS_ITS | Clinical Summary ---
Author Organization [facility] Address [address] [place] [address] Care Team Providers Care Bed Placement Coordinator Name Role Phone Hayden Man MD Primary Care Provider [phone] Maggy Swartz MD Unavailable [phone] Allergies No known active allergies Medications [...] this topic Medical Devices Implanted Type Area Itinerant Teacher Assistant Device Identifier Shelf Expiration Date Model / Serial / Lot [id number] Spacer Spinal [id number] Cpstn Peek Ptc Lmbr Intrbd Fs Sterl - [id number] Implanted:Qty: 1 on 09/08/2020 by Maggy Swartz MD at [facility] Cage N/A: Spine Lumbar [employer] MINIMALLY INVASIVE T 10/20/2026 [id number] / / [id number] Ashok Spinal 70mm 5.5mm Cd Hzn Crv Ti Cp4 Nonst - [id number] Implanted:Qty: 2 on 09/08/2020 by Maggy Swartz MD at [facility] Nail/Ashok N/A: Spine Lumbar [employer] MINIMALLY INVASIVE T [id number] / / [id number] Screw Bone Spine Solera Cd Hzn 40mm Cocr 5.5mm Ma Nonst 5.5 - [id number] Implanted:Qty: 2 on 09/08/2020 by Maggy Swartz MD at [facility] Spine N/A: Spine Lumbar [employer] MINIMALLY INVASIVE T [id number] / / [id number] Screw Bone Spine Cd Hzn Solera 45mm Ti Cocr 5.5mm Ma Nonst - [id number] Implanted:Qty: 4 on 09/08/2020 by Maggy Swartz MD at [facility] Spine N/A: Spine Lumbar [employer] MINIMALLY INVASIVE T [id number] / / [id number] Screw Set Ti Spine Brk Off Cd Hzn Nonst 5.5 Mm Ashok - [id number] Implanted:Qty: 6 on 09/08/2020 by Maggy Swartz MD at [facility] Spine N/A: Spine Lumbar [employer] MINIMALLY INVASIVE T [id number] / / [id number] Filler Bone Void 10cc Dbx Algrf Frzdr Putty - [id number] Implanted:Qty: 1 on 09/08/2020 by Maggy Swartz MD at [facility] Void Filler N/A: Spine Lumbar MUSCULOSKELETAL TRANSPLANT FOU 03/19/2022 [id number] / [id number] / [id number] Filler Bone Void 10cc Dbx Algrf Frzdr Putty - [id number] Implanted:Qty: 1 on 09/08/2020 by Maggy Swartz MD at [facility] Void Filler N/A: Spine Lumbar MUSCULOSKELETAL TRANSPLANT FOU 12/13/2021 [id number] / [id number] / [id number] Filler Bone Void 10cc Dbx Algrf Frzdr Putty - [id number] Implanted:Qty: 1 on 09/08/2020 by Maggy Swartz MD at [facility] Void Filler N/A: Spine Lumbar MUSCULOSKELETAL TRANSPLANT FOU 03/19/2022 [id number] / [id number] / Advance Directives * Full Code (Latest Code Status on File) Date Activated Date Inactivated Comments 09/08/2020 8:09 PM * Full Code Date Activated Date Inactivated Comments 09/08/2020 9:46 AM 09/08/2020 8:09 PM * Full Code Date Activated Date Inactivated Comments 06/25/2020 3:59 PM 09/08/2020 9:10 AM * Full Code Date Activated Date Inactivated Comments 06/25/2020 8:24 AM 06/25/2020 3:59 PM Care Teams Bed Placement Coordinator Relationship Specialty Start Date End Date PoHayden MD [address] [place] [address] Dr Vo [address] [place] [address] [place] [address] PCP - General Internal Medicine 05/06/20 Maggy Swartz MD [address] [place] [address] Surgery, Neurosurgery 08/20/20
--- OUTSIDE RECORDS SUMMARY | 2024-12-31 16:53 | XMS_ITS | Encounter Summary ---
Author Organization [facility] Address [address] [place] [address] Care Team Providers Care Plug Shaper Hand Name Role Phone Hayden Man MD Primary Care Provider [phone] Maggy Swartz MD Unavailable [phone] Encounter Details Date Type Department Care Team (Late st Contact Info) Description 02/02/2021 Scanned Document [facility] Neurosurgery [place] [address] [phone] Maggy Swartz MD [address] [address] Social History Tobacco Use Types Packs/Day Years [...] on filedocumented in this encounter Care Teams Plug Shaper Hand Relationship Specialty Start Date End Date Hayden Man MD [address] [place] [address] [place] [address] PCP - General Internal Medicine 05/06/20 Maggy Swartz MD [address] [place] [address] Surgery, Neurosurgery 08/20/20 documented as of this encounter
--- OUTSIDE RECORDS SUMMARY | 2024-12-31 16:53 | XMS_ITS | Encounter Summary ---
Author Organization [facility] Address [address] [place] [address] Care Team Providers Care Candy Dipper Name Role Phone Hayden Man MD Primary Care Provider [phone] Maggy Swartz MD Unavailable [phone] Encounter Details Date Type Department Care Team (Late st Contact Info) Description 08/22/2020 Scanned Document [facility] Neurosurgery [place] [address] [address] Maggy Swartz MD 85 [facility] [address] [place] [address] Social History Tobacco Use Types Packs/Day [...] on filedocumented in this encounter Care Teams Candy Dipper Relationship Specialty Start Date End Date Hayden Man MD NPI: [id number] [place] [address] [place] [address] PCP - General Internal Medicine 05/06/20 Maggy Swartz MD [address] [place] [address] Surgery, Neurosurgery 08/20/20 documented as of this encounter
--- OUTSIDE RECORDS SUMMARY | 2024-12-31 16:53 | XMS_ITS | Encounter Summary ---
Author Organization [facility] Address [address] [place] [address] Care Team Providers Care Mechanical Developer Prover Name Role Phone Hayden Man MD Primary Care Provider [phone] Maggy Swartz MD Unavailable [phone] Encounter Details Date Type Department Care Team (Late st Contact Info) Description 12/16/2020 Scanned Document [facility] Neurosurgery [address] [place] [address] Bibi Maza PA Valid Address Needed Social [...] on filedocumented in this encounter Care Teams Mechanical Developer Prover Relationship Specialty Start Date End Date Hayden Man MD [address] [place] [address] [place] [address] PCP - General Internal Medicine 05/06/20 Maggy Swartz MD [address] [place] [address] Surgery, Neurosurgery 08/20/20 documented as of this encounter
--- OUTSIDE RECORDS SUMMARY | 2024-12-31 16:53 | XMS_ITS | Encounter Summary ---
Author Organization [facility] Address [address] [place] [address] Care Team Providers Care Restorative Coordinator Name Role Phone Hayden Man MD Primary Care Provider [phone] Maggy Swartz MD Unavailable [phone] Reason for Visit * Reason Comments Other Encounter Details Date Type Department Care Team (Late st Contact Info) Description 04/03/2021 Telephone [facility] Urologic Surgery [address] [phone] Hardik Reese MD [address] [place] [address] Other Social History Tobacco Use Types [...] Ct abdomen with and without contrast to [facility]. documented in this encounter Plan of Treatment Not on file documented as of this encounter Visit Diagnoses Not on filedocumented in this encounter Care Teams Restorative Coordinator Relationship Specialty Start Date End Date Hayden Man MD [address] [place] [address] [facility] [address] [place] [address] PCP - General Internal Medicine 05/06/20 Maggy Swartz MD [address] [place] [address] Surgery, Neurosurgery 08/20/20 documented as of this encounter
--- OUTSIDE RECORDS SUMMARY | 2024-12-31 16:53 | XMS_ITS | Encounter Summary ---
Author Organization [facility] Address [address] [place] [address] Care Team Providers Care Woodwind Reeds Cutter Name Role Phone Hayden Man MD Primary Care Provider [phone] Maggy Swartz MD Unavailable [phone] Encounter Details Date Type Department Care Team (Late st Contact Info) Description 12/16/2020 Scanned Document [facility] Neurosurgery [address] [place] [address] Bibi Maza PA Valid Address Needed Social [...] on filedocumented in this encounter Care Teams Woodwind Reeds Cutter Relationship Specialty Start Date End Date Hayden Man MD [address] [place] [address] [place] [address] PCP - General Internal Medicine 05/06/20 Maggy Swartz MD [address] [place] [address] Surgery, Neurosurgery 08/20/20 documented as of this encounter
--- OUTSIDE RECORDS SUMMARY | 2024-12-31 16:53 | XMS_ITS | Encounter Summary ---
Author Organization [facility] Address [address] [place] [address] Care Team Providers Care Day Care Supervisor Name Role Phone Hayden Man MD Primary Care Provider [phone] Maggy Swartz MD Unavailable [phone] Reason for Visit * Reason Comments Medication Refill Encounter Details Date Type Department Care Team (Late st Contact Info) Description 09/27/2020 Refill [facility] Neurosurgery [address] [place] [address] Bibi Maza PA Valid Address Needed Lumbar [...] myelopathy documented in this encounter Care Teams Day Care Supervisor Relationship Specialty Start Date End Date Hayden Man MD [address] [place] [address] [address] [place] [address] PCP - General Internal Medicine 05/06/20 Maggy Swartz MD [address] [place] [address] Surgery, Neurosurgery 08/20/20 documented as of this encounter
--- OUTSIDE RECORDS SUMMARY | 2024-12-31 16:53 | XMS_ITS | Encounter Summary ---
Author Organization [facility] Address [address] [place] [address] Care Team Providers Care Program Or Project Administrator Name Role Phone Hayden Man MD Primary Care Provider [phone] Maggy Swartz MD Unavailable [phone] Encounter Details Date Type Department Care Team (Late st Contact Info) Description 03/24/2021 Scanned Document [facility] Neurosurgery [place] [address] [phone] Bibi Maza PA Valid Address Needed Social [...] on filedocumented in this encounter Care Teams Program Or Project Administrator Relationship Specialty Start Date End Date Hayden Man MD [address] [place] [address] Dr [address] [place] [address] PCP - General Internal Medicine 05/06/20 Maggy Swartz MD [address] [place] [address] Surgery, Neurosurgery 08/20/20 documented as of this encounter
--- OUTSIDE RECORDS SUMMARY | 2024-12-31 16:53 | XMS_ITS | Encounter Summary ---
Author Organization [facility] Address [address] [place] [address] Care Team Providers Care Neck Cutter Name Role Phone Hayden Man MD Primary Care Provider [phone] Maggy Swartz MD Unavailable [phone] Encounter Details Date Type Department Care Team (Late st Contact Info) Description 02/02/2021 Scanned Document [facility] Neurosurgery [place] [address] [address] Maggy Swartz MD [address] [address] Social History Tobacco Use Types Packs/Day Years [...] on filedocumented in this encounter Care Teams Neck Cutter Relationship Specialty Start Date End Date Hayden Man MD [address] [place] [address] [place] [address] PCP - General Internal Medicine 05/06/20 Maggy Swartz MD [address] [place] [address] Surgery, Neurosurgery 08/20/20 documented as of this encounter
== END 2024-12-31 15:35 | disposition home or self-care (01) ==
PROVIDERS: PCP Internal Medicine; Visit Provider Physician Assistant
DX: M79.605 Pain in left leg (principal)
CPT/HCPCS: 99204; G2211

== ENCOUNTER 2025-01-12 15:05 | Emergency (ER) | payer MEDICARE, MEDICAID, SELFPAY ==
[2025-01-12] VITALS (9 sets, daily range): BP systolic 104–127; BP diastolic 48–73; PULSE 63–78; RESP 16–18; TEMP 36.3–36.6; O2SAT 98–100
--- NOTE | 2025-01-12 | ECG_ITS ---
Test Reason : syncope Blood Pressure : */* mmHG Vent. Rate : 64 BPM Atrial Rate : 64 BPM P-R Int : 146 ms QRS Dur : 82 ms QT Int : 396 ms P-R-T Axes : 58 43 50 degrees QTcB Int : 408 ms Normal sinus rhythm Normal ECG No previous ECGs available Referred By: Generic ED Physician Electronically Signed By: RUDDY BOYD
--- NOTE | ~2025-01-12 | CT_ITS ---
CLINICAL HISTORY: 2 episodes of syncope, uncertain cause CT Head without contrast. CT angiography head and neck with contrast. 3D Postprocessing. Comparison: None Findings: HEAD CT: No intra-axial mass, midline shift, hydrocephalus, or acute hemorrhage. No significant atrophy-like change or white matter disease. Small mucous retention cyst/polyp in left sphenoid sinus posteriorly and otherwise sinuses and mastoid air cells are clear. The orbits are within normal limits. There is no acute skull fracture. HEAD AND NECK CTA: Aortic arch and cervical great vessels are patent. Minimal atherosclerotic vascular disease of proximal left internal carotid artery. Bilateral vertebral arteries are patent with the right dominant. Bilateral external carotid arteries are patent. Intracranial arteries are patent. No aneurysm, dissection, or large vessel occlusion. No abnormal intracranial enhancement. The visualized thyroid gland is unremarkable. No cervical mass or fluid collection. Lung apices clear. No acute fracture. Previous anterior fusion at C5-6. Degenerative disc disease at C4-5 and C6-7. IMPRESSION: 1. No acute intracranial findings on noncontrast CT head. 2. Minimal plaque in left internal carotid artery in the neck with no hemodynamically significant stenosis. Otherwise CTA neck is unremarkable. 3. CTA head demonstrates no intracranial large vessel occlusion. No aneurysm. This document has been electronically signed by: Alka Vázquez MD on 01/12/2025 19:16:39
--- NOTE | ~2025-01-12 | XR_ITS ---
CLINICAL HISTORY: syncope 2 view chest x-ray Comparison: None Findings: Normal size heart. No consolidation, pleural effusion or pneumothorax. Questionable minimal interstitial prominence. No acute fracture. Fusion hardware in lower aspect cervical spine and in lumbar spine partially visualized. IMPRESSION: 1. No acute findings. This document has been electronically signed by: Alka Vázquez MD on 01/12/2025 17:02:16
--- NOTE | 2025-01-12 15:41 | ED_ITS ---
HPI - Syncope General Chief Complaint: Syncope Stated Complaint: VASOVAGAL Time Seen by Provider: 01/12/25 15:34 Source: patient Mode of arrival: EMS Limitations: no limitations History of Present Illness ED Provider: Hardik Hoffman DO HPI narrative: 64-year-old female with past medical history of anxiety, osteoarthritis, chronic regional pain syndrome mostly affecting the left lower extremity as well as back pain, treated in the past with intrathecal analgesics, anemia, hypothyroidism and tobacco use via vaping presents to the emergency department via EMS due to an episode that she describes a syncope. Patient states she was in her normal state of health when her friend who is a nurse was removing sutures placed by dermatology over the right knee. During that time the patient states she looked at the knee and immediately felt woozy, nauseous and sweaty as well as lightheaded. She recalls waking up shortly afterward while her friend was still present. She was sitting down and did not hit her head. She had no prodromal symptoms and denies headache, difficulty breathing, chest pain, abdominal pain, back pain, numbness, weakness or any additional symptoms previous to the event or afterwards. She states she is in her normal state of health now. The patient's friend who is a nurse and witnessed the entire event states the patient had at least 30 seconds of upper body convulsions and this was followed by slurred speech when she finally responded about 5 minutes after the event. She states it took approximately 10 minutes before the patient was at her baseline. No reports from the patient or her friend of tongue biting or urinary or fecal incontinence. No other focal deficits described prior to arrival. Patient has not had a history of seizures and denies history of hypertension or hyperlipidemia. She denies illicit drug use. Related Data Home Medications ?Medication ?Instructions ?Recorded ?Confirmed magnesium oxide 400 mg PO DAILY 12/30/20 06/15/24 triamcinolone acetonide 0.025 % appl topical 05/04/23 06/15/24 topical cream Previous Rx's ?Medication ?Instructions ?Recorded cyanocobalamin (vitamin B-12) 1,000 mcg PO .QOD #30 caps 12/11/21 1,000 mcg capsule miscellaneous medical supply 1 ea miscellaneous DAILY #1 ea 04/02/22 Wrist SPlints #1 ea 04/21/22 toilet seat risers and Raised #1 ea 08/23/22 toilet seat toilet seat risers #2 ea 08/23/22 ascorbate calcium (vitamin C) 500 500 mg PO DAILY #30 tabs 12/17/22 mg tablet varenicline tartrate 1 mg tablet 1 mg PO BID #60 tabs 12/14/23 (Chantix Continuing Month Box) clotrimazole 1 % topical cream 1 appl topical BID 4 weeks #45 01/31/24 grams duloxetine 60 mg capsule,delayed 60 mg PO DAILY 90 days #90 caps 02/20/24 release levothyroxine 88 mcg tablet 88 mcg PO QAM #90 tabs 09/05/24 Raised toilet seat #2 ea 09/24/24 SHOWER Chair #1 ea 09/24/24 gabapentin 600 mg tablet 1,200 mg (2 x 600 mg) PO TID 90 10/23/24 days #540 tabs RAISED TOILET #2 ea 11/26/24 WALK IN SHOWER #1 ea 11/26/24 alprazolam 0.25 mg tablet 0.25 mg PO DAILY #30 tabs 12/27/24 Allergies Allergy/AdvReac Type Severity Reaction Status Date / Time No Known Allergies Allergy Verified 01/12/25 15:16 [No Known Allergies*] Review of Systems 2 Review of Systems: Yes all other systems are reviewed and are negative PMFSH Past Medical History Medical History Breast cancer screening by mammogram Generalized anxiety disorder Left leg paresthesias Bacterial vaginosis Anxiety Opioid use disorder Chronic pain syndrome Postlaminectomy syndrome Complex regional pain syndrome i of left lower limb Primary osteoarthritis of left knee Tobacco abuse Renal lesion Closed left ankle fracture Cervical disc herniation Hypothyroidism Surgical History Hx of cervical discectomy H/O colonoscopy H/O lumbar discectomy Spinal stenosis History of left knee surgery Left ACL tear Family History Family History Father No problems noted. Mother Stroke Paternal Aunt Breast cancer Social History Social History Housing: House Are you a primary home day care provider to a significant other at home: No Do you presently have visiting nurse or other home services: No Alcohol intake: current Alcohol intake frequency: holidays/special occasions only Alcohol type: wine Patient Tobacco Use Status: Current someday Tobacco user Tobacco use type: Cigarette Years Smoked: 30 Smoked in Last 30 Days: Yes e-Cigarette/Vaping Use: Never Used Second Hand Smoke Exposure: Yes Use of substances other than those prescribed or required for medical reasons: No Advance Directives: No Advance Directives Information Provided: No Patient : No service: No Current occupational status: unemployed Cognitive needs: No Hearing needs: No Vision needs: No Physical Exam 2 Vital Signs: Vital Signs: Last Vital Signs Temp 97.6 F 01/12/25 17:29 Pulse 65 01/12/25 18:42 Resp 16 01/12/25 18:42 BP 117/52 L 01/12/25 18:42 Pulse Ox 99 01/12/25 18:42 O2 Del Method Room Air 01/12/25 18:42 BMI result Body Mass Index 30.0 Constitutional: Alert, oriented, speaking in full sentences HEENT: Normocephalic, atraumatic. Moist mucous membranes, no laceration of the tongue, no blood in the mouth. Eyes: PERRL, EOMI Neck: Supple, nontender Chest: No chest wall tenderness Respiratory: Lungs clear to auscultation, no increased work of breathing Cardio: Regular rate and rhythm, no murmur, 2+ radial and DP pulses symmetrically GI: Soft, nondistended, nontender Back: Normal range of motion, nontender Skin: No rash, Right anterior knee shows a long well healing scar with 1 long suture almost completely removed. There is good healing without induration, purulent discharge, tenderness or erythema surrounding the site. Neuro: Mental Status: Patient is alert, attentive, and fully oriented Speech: Clear and fluent CN II: Visual ambrosio are full, pupils are equal and briskly reactive to light CN III, IV, : Extra ocular motions are intact in all directions. No ptosis. CN V: Facial sensation intact, both upper and lower face CN VII: Symmetric facial movements CN VIII: Hearing is grossly normal CN IX, X: Symmetric elevation of palate, normal phonation CN XI: Shoulder shrug 5/5 strength bilaterally CN XII: Tongue protrudes midline Motor: No pronator drift bilaterally. 5/5 strength all 4 extremities. Normal muscle bulk and tone. Sensory: Sensation intact all 4 extremities to light touch without reported paresthesias. Coordination: No dysmetria on finger to nose bilaterally. No truncal ataxia noted. Extremities: No swelling or tenderness, full range of motion Psych: Calm, alert and cooperative, appropriate behavior Medications Administered Discontinued Medications Generic Name Dose Route Start Last Admin Trade Name Brett PRN Reason Stop Dose Admin Iohexol 100 ml 01/12/25 18:08 01/12/25 18:08 Iohexol 350 Mg/Ml 100 Ml Infus..Btl IV 01/12/25 18:09 70 ml ONCE ONE Administration Medical Decision Making Medical Decision Making [facility] Narrative: Patient presents with possible syncope which initially appears vasovagal per her history, however is more concerning per history from her friend at the bedside which expands the differential to seizure.. Likely to be true syncope as the patient reports complete loss of consciousness of short duration, recovered after a few minutes, and lost postural tone. However, because there are descriptions of myoclonic jerks, (Without head turning, tongue biting, incontinence, prolonged loss of consciousness, preceding aura, or prolonged postictal state), seizure is of low likelihood but remains on the differential. The differential diagnosis also includes vascular event which will be further evaluated with troponin and CT angiography of the head and neck. We will perform labs to evaluate for anemia, metabolic derangement and lactic acidosis to help support history of seizure. Either way, would recommend follow up with Neurology, especially as the friend describes that the patient had an episode of syncope a couple of weeks ago. The patient had no focal neurologic deficits and has an unremarkable comprehensive neurologic exam and therefore I do not suspect ischemic stroke. I do not feel the patient warrants a stroke protocol or neurology input at this time. No dyspnea or hypoxemia to suggest PE or tension pneumothorax. No chest pain to suggest PR. No back pain to suggest aortic dissection or ruptured AAA. Do not have concern for SAH due to absence of headache. No history of hematemesis, melena, or hematochezia to suggest symptomatic anemia from GI bleed. No focal neurologic signs or symptoms to indicate brain stem stroke, vestibulobasilar insufficiency, or carotid/vertebral dissection. Given these history and exam findings, we will obtain ECG and labs and CT imaging to further risk stratify for cardiac etiology of syncope. patient noted to have uninterrupted sutures located over the right knee anteriorly with only 1 area that was not removed. This was removed by me without any difficulties and the wound is closed with good approximation and there are no signs of infection. Lactic acid level is unremarkable at 0.8, further making diagnosis of seizure highly unlikely. Additional labs are also unremarkable including [address] imaging of the head and neck unremarkable with only a small amount of plaque in the left ICA without stenosis. Patient has had no recurrent symptoms and it was able to ambulate without difficulty. Able to ambulate to the bathroom without difficulty. Admission/Observation Consideration of admission/observation: Escalation of care including admission/observation considered Lab Data [facility] Lab Attestation statement: I reviewed the patient's lab results. 01/12/25 17:05 01/12/25 17:05 Labs: Lab Results 01/12/25 01/12/25 Range/Units 17:05 19:08 WBC 7.4 (4.8-10.8) X10*3/uL RBC 3.90 L (4.20-5.50) X10*6/uL Hgb 12.7 (12.0-16.0) g/dl Hct 38.4 (37.0-47.0) % MCV 98.5 H (80.0-98.0) fL MCH 32.6 (27.0-33.0) pg MCHC 33.1 (31.0-35.0) g/dl RDW 13.6 (11.0-16.0) % Plt Count 308 (160-400) X10*3/uL MPV 10.0 (9.4-12.3) fL Immature Gran % (Auto) 0.3 (0.0-0.4) % Neut % (Auto) 75.0 H (45-73) % Lymph % (Auto) 16.7 L (20-40) % [place] % (Auto) 5.3 (2-11) % Eos % (Auto) 1.9 (0-4) % Baso % (Auto) 0.8 (0-2) % Lymph # (Auto) 1.2 (1.2-4.9) X10*3/uL [place] # (Auto) 0.4 (0.1-1.2) X10*3/uL Eos # (Auto) 0.1 (0.0-0.4) X10*3/uL Baso # (Auto) 0.1 (0.0-0.2) X10*3/uL Abs Immat Gran (auto) 0.02 (0.00-0.03) X10*3/uL Absolute Neuts (auto) 5.5 (2.0-8.3) x10*3/uL Absolute Nucleated RBC 0.000 (0.0-0.012) X10*3/uL Nucleated RBC % (auto) 0.0 (0.0-0.2) /100WBC PT 11.1 (10.9-12.4) SEC INR 1.0 (0.9-1.1) Sodium 137 (135-145) mmol/L Potassium 4.1 (3.3-5.1) mmol/L Chloride 102 (96-108) mmol/L Carbon Dioxide 24 (22-29) mmol/L Anion Gap 15 (12-20) BUN 12 (9-16) mg/dL Creatinine 0.79 (0.5-1.4) mg/dL Estim Creat Clear Calc 75.2 Estimated GFR > 60 Random Glucose 92 (60-115) mg/dL Lactic Acid 0.8 (0.5-2.0) mmol/L Calcium 9.4 (8.4-10.2) mg/dL Magnesium 2.0 (1.6-2.6) mg/dL Troponin I High Sens < 2.7 < 2.7 (<3.5-17.0) ng/L Independent Interpretation I performed an independent interpretation of an: EKG ( normal sinus rhythm at 64 beats per minute, normal axis and intervals, no diagnostic ST or T-wave abnormalities, no prior for comparison.), Plain X-Ray ( Chest x-ray per my independent interpretation shows no acute cardiopulmonary abnormalities.) and CT Scan Interpretation: Findings: HEAD CT: No intra-axial mass, midline shift, hydrocephalus, or acute hemorrhage. No significant atrophy-like change or white matter disease. Small mucous retention cyst/polyp in left sphenoid sinus posteriorly and otherwise sinuses and mastoid air cells are clear. The orbits are within normal limits. There is no acute skull fracture. HEAD AND NECK CTA: Aortic arch and cervical great vessels are patent. Minimal atherosclerotic vascular disease of proximal left internal carotid artery. Bilateral vertebral arteries are patent with the right dominant. Bilateral external carotid arteries are patent. Intracranial arteries are patent. No aneurysm, dissection, or large vessel occlusion. No abnormal intracranial enhancement. The visualized thyroid gland is unremarkable. No cervical mass or fluid collection. Lung apices clear. No acute fracture. Previous anterior fusion at C5-6. Degenerative disc disease at C4-5 and C6-7. IMPRESSION: 1. No acute intracranial findings on noncontrast CT head. 2. Minimal plaque in left internal carotid artery in the neck with no hemodynamically significant stenosis. Otherwise CTA neck is unremarkable. 3. CTA head demonstrates no intracranial large vessel occlusion. No aneurysm. This document has been electronically signed by: Alka Vázquez MD on 01/12/2025 19:16:39 Discharge Plan Discharge Clinical Impression: Vasovagal syncope, Encounter for removal of sutures Patient Disposition: Home, Self-Care Instructions: Syncope (ED), Stitches Removal (ED) Additional Instructions: You were evaluated for what appears to be a passing out or otherwise called syncopal episode, specifically a vasovagal syncopal episode after watching the sutures get removed. Because there was initial concern for possible seizure based on the information provided by her friend, we pursued further workup which showed no acute abnormalities of your labs, chest x-ray and EKG. CT imaging of your brain showed no acute abnormalities that would explain any symptoms. You do have a small plaque in the left internal carotid artery. There is no specific management for this, more so to be aware. Please follow up with your neurologist and due to passing out multiple times which again, may be related to taking OxyContin at home in the past, we do recommend that you follow up with the chief librarian music department as well or at least your primary care provider for potential Holter monitor placement. CT IMPRESSION: 1. No acute intracranial findings on noncontrast CT head. 2. Minimal plaque in left internal carotid artery in the neck with no hemodynamically significant stenosis. Otherwise CTA neck is unremarkable. 3. CTA head demonstrates no intracranial large vessel occlusion. No aneurysm. Prescriptions: No Action miscellaneous medical supply Misc 1 ea miscellaneous DAILY Qty: 1 0RF Rx Instructions: Bilateral wrist splint (DME) Wrist SPlints See Rx Instructions .Route .MEDSUPPLY Qty: 1 0RF Rx Instructions: As directed (DME) toilet seat risers See Rx Instructions .Route .MEDSUPPLY Qty: 2 0RF Rx Instructions: As directed (DME) toilet seat risers and Raised toilet seat See Rx Instructions .Route .MEDSUPPLY Qty: 1 0RF Rx Instructions: As directed varenicline tartrate [Chantix Continuing Month Box] 1 mg tablet 1 mg PO BID Qty: 60 0RF duloxetine 60 mg capsule,delayed release(DR/EC) 60 mg PO DAILY 90 Days Qty: 90 3RF levothyroxine 88 mcg tablet 88 mcg PO QAM Qty: 90 3RF gabapentin 600 mg tablet 1,200 mg PO TID 90 Days Qty: 540 0RF (DME) WALK IN SHOWER See Rx Instructions .Route .MEDSUPPLY Qty: 1 0RF Rx Instructions: As directed (DME) RAISED TOILET See Rx Instructions .Route .MEDSUPPLY Qty: 2 0RF Rx Instructions: As directed alprazolam 0.25 mg tablet 0.25 mg PO DAILY Qty: 30 0RF magnesium oxide 400 mg magnesium tablet 400 mg PO DAILY cyanocobalamin (vitamin B-12) 1,000 mcg capsule 1,000 mcg PO .QOD Qty: 30 3RF ascorbate calcium (vitamin C) 500 mg tablet 500 mg PO DAILY Qty: 30 4RF clotrimazole 1 % cream 1 appl topical BID 28 Days Qty: 45 0RF triamcinolone acetonide 0.025 % cream topical (DME) Raised toilet seat See Rx Instructions .Route .MEDSUPPLY Qty: 2 0RF Rx Instructions: As directed (DME) SHOWER Chair See Rx Instructions .Route .MEDSUPPLY Qty: 1 0RF Rx Instructions: As directed Print Language: Welsh
[2025-01-12 17:11] LABS: MANUAL DIFF FLAG NO
[2025-01-12 17:13] LABS: Basophils Absolute Auto 0.1 X10*3/uL (0.0-0.2); Basophils Percent Auto 0.8 % (0-2); Eosinophils Absolute Auto 0.1 X10*3/uL (0.0-0.4); Eosinophils Percent Auto 1.9 % (0-4); Hematocrit 38.4 % (37.0-47.0); Hemoglobin 12.7 g/dl (12.0-16.0); Imm Gran Abs Auto 0.02 X10*3/uL (0.00-0.03); Imm Gran Pct Auto 0.3 % (0.0-0.4); Lymphocytes Absolute Auto 1.2 X10*3/uL (1.2-4.9); Lymphocytes Percent Auto 16.7 % (20-40); Mean Corpuscular HGB Conc 33.1 g/dl (31.0-35.0); Mean Corpuscular Hemoglobin 32.6 pg (27.0-33.0); Mean Corpuscular Volume 98.5 fL (80.0-98.0); Monocytes Absolute Auto 0.4 X10*3/uL (0.1-1.2); Monocytes Percent Auto 5.3 % (2-11); Neutrophils Absolute Auto 5.5 x10*3/uL (2.0-8.3); Platelet Count 308 X10*3/uL (160-400); Red Cell Distribution Width 13.6 % (11.0-16.0); White Blood Count 7.4 X10*3/uL (4.8-10.8)
[2025-01-12 17:19] LABS: Prothrombin Time 11.1 SEC (10.9-12.4)
[2025-01-12 17:26] LABS: Lactic Acid 0.8 mmol/L (0.5-2.0)
[2025-01-12 17:30] LABS: Anion Gap 15 (12-20); Blood Urea Nitrogen 12 mg/dL (9-16); Calcium 9.4 mg/dL (8.4-10.2); Carbon Dioxide 24 mmol/L (22-29); Chloride 102 mmol/L (96-108); Creatinine Clr Calc Pharmacy 75.2; Estimated Glomerular Filt Rate > 60; Glucose Random 92 mg/dL (60-115); Potassium 4.1 mmol/L (3.3-5.1); Sodium 137 mmol/L (135-145)
[2025-01-12 17:40] LABS: Troponin-I High Sensitivity < 2.7 ng/L (<3.5-17.0)
[2025-01-12] MEDS: iohexoL 350 MG/ML 100 ML INFUS..BTL IV (18:08)
--- NOTE | 2025-01-12 19:57 | PC.NURSE ---
Patient was witnessed to have taken her prescribed doses of Gabapentin & Synthroid while this RN was in another patient's room by another staff member. Patient apologized and verbally confirmed taking prescribed medications while awaiting repeat troponin level. Plan to discharge home pending normal troponin level. Visitor at bedside (Marian Orellana) that witnessed today's syncopal event. Patient sitting upright, calm/cooperative, denies complaints. Alert & oriented x4. Care ongoing by this RN.
[2025-01-12 20:07] LABS: Troponin-I High Sensitivity < 2.7 ng/L (<3.5-17.0)
--- NOTE | 2025-01-12 20:25 | PC.NURSE ---
removed Iv's , reviewed discharge instructions with patient, pt verbalized understanding , Notified RN Keena
== END 2025-01-12 20:32 | disposition home or self-care (01) ==
PROVIDERS: Emergency Provider Emergency Medicine; PCP Internal Medicine
DX: R55 Syncope and collapse (principal); Z48.02 Encounter for removal of sutures; F17.210 Nicotine dependence, cigarettes, uncomplicated
CPT/HCPCS: 36415; 70496; 70498; 71046; 80048; 83605; 83735; 84484; 85025; 85610; 93005; 99284; 99285; Q9967

== ENCOUNTER → 2025-01-12 15:30 | Outpatient (BNV) | payer MEDICARE, MEDICAID, SELFPAY | PROVIDERS: Emergency Provider Emergency Medicine; PCP Internal Medicine; Visit Provider Internal Medicine | DX: R55 Syncope and collapse (principal) | CPT/HCPCS: 93010 ==

== ENCOUNTER → 2025-01-12 16:32 | Outpatient (BNV) | payer MEDICARE, MEDICAID, SELFPAY | PROVIDERS: Emergency Provider Emergency Medicine; PCP Internal Medicine; Visit Provider Specialist | DX: R55 Syncope and collapse (principal) | CPT/HCPCS: 70496; 70498; 71046 ==

== ENCOUNTER 2025-01-22 14:40 | Outpatient (AMB) | payer OTHER, MEDICARE, MEDICAID, SELFPAY ==
--- NOTE | 2025-01-22 14:51 | MHC.PC.OV ---
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 per policy Accompanied by: Self / Same As Patient Allergies No Known Allergies [No Known Allergies*] Allergy (Verified 01/22/25 14:52) Medication List - Last Reconciled 01/22/25 by Hayden Man MD [toilet seat risers and Raised toilet seat As directed] alprazolam 0.25 mg PO DAILY ascorbate calcium (vitamin C) 500 mg PO DAILY aspirin (Adult Aspirin Regimen) 81 mg PO DAILY clotrimazole 1% 1 appl topical BID 4 weeks cyanocobalamin (vitamin B-12) 1,000 mcg PO .QOD duloxetine 60 mg PO DAILY 90 days gabapentin 1,800 mg PO BID levothyroxine 88 mcg PO QAM magnesium oxide 400 mg PO DAILY miscellaneous medical supply 1 ea miscellaneous DAILY [RAISED TOILET As directed] [Raised toilet seat As directed] [SHOWER Chair As directed] [toilet seat risers As directed] triamcinolone acetonide 0.025% appl topical [WALK IN SHOWER As directed] [Wrist SPlints As directed] Tobacco use date assessed: 01/22/25 Dental Screening Dental Screen Date: 01/22/25 Did you have a dental visit in the last 12 months?: Yes Did you have a dental problem in the last 6 months where you did not have access to dental care?: No Was dental information given to patient?: Patient has dentist HPI 3 month f/u HPI Details see dermatologyR knee - states malignant melanoma- surgery done. states has been falling a lot [facility] Medical History Breast cancer screening by mammogram Generalized anxiety disorder Left leg paresthesias Bacterial vaginosis Anxiety Opioid use disorder Chronic pain syndrome Postlaminectomy syndrome Complex regional pain syndrome i of left lower limb Primary osteoarthritis of left knee Tobacco abuse Renal lesion Closed left ankle fracture Cervical disc herniation Hypothyroidism Surgical History Hx of cervical discectomy H/O colonoscopy H/O lumbar discectomy Spinal stenosis History of left knee surgery Left ACL tear Family History Father No problems noted. Mother Stroke Paternal Aunt Breast cancer Social History Housing: House Are you a primary healthcare network consultant to a significant other at home: No Do you presently have visiting nurse or other home services: No Alcohol intake: current Alcohol intake frequency: holidays/special occasions only Alcohol type: wine Patient Tobacco Use Status: Former Tobacco user Tobacco use type: Cigarette Years Smoked: 30 e-Cigarette/Vaping Use: Currently Using Second Hand Smoke Exposure: Yes service: No Current occupational status: unemployed Cognitive needs: No Hearing needs: No Vision needs: No Questionnaire PHQ-9 Over the last 2 weeks, how often have you been bothered by any of the following problems? 1. Little interest or pleasure in doing things: not at all 2. Feeling down, depressed, or hopeless: not at all 3. Trouble falling or staying asleep, or sleeping too much: not at all 4. Feeling tired or having little energy: not at all 5. Poor appetite or overeating: not at all 6. Feeling bad about yourself - or that you are a failure or have let yourself or your family down: not at all 7. Trouble concentrating on things, such as reading the newspaper or watching television: not at all 8. Moving or speaking so slowly that other people could have noticed. Or the opposite - being so fidgety or restless that you have been moving around a lot more than usual: not at all 9. Thoughts that you would be better off or of hurting yourself in some way: not at all Total score: 0 Depression Screening Interpretation: Negative Depression Screening Done: Yes Source: Developed by Drs. Tai Viramontes, Sherlyn Garza, Stalin Guerra and colleagues, with an educational marcie from [employer]. Thrive Questionnaire Date Thrive assessed: 01/22/25 I am a: Patient What is your living situation today?: I have a steady place to live Within the past 12 months, did the food you bought not last and you didn't have the money to get more?: Never true Within the past 12 months, did you worry whether your food would run out before you got money to buy more?: Never true Do you have trouble paying for medicines?: No Do you have trouble getting transportation to medical appointments?: No Do you have trouble paying your heating and electricity bill?: No Do you have trouble taking care of your child, family member or friend?: No Do you have trouble with day-to-day activities such as bathing, preparing meals, shopping, managing finances, etc.?: No Are you currently unemployed and looking for a job?: No Are you interested in more education?: No Please select the resources that you would like help with: None Currently or been in a relationship where the following occur: No concerns reported THRIVE Score: 0 AUDIT C Alcohol Use Questionnaire (AUDIT-C) 2. How many drinks containing alcohol do you have on a typical day when you are drinking?: 1 or 2 3. How often do you have six or more drinks on one occasion?: Never Total Score: 0 JESSICA-7 AMB Questionnaire JESSICA-7 Date JESSICA - 7 assessed: 01/22/25 Feeling nervous, anxious, or on edge: 0 = Not at all Not being able to stop or control worryin = Not at all Worrying too much about different things: 0 = Not at all Trouble relaxin = Not at all Being so restless that it is hard to sit still: 0 = Not at all Becoming easily annoyed or irritable: 0 = Not at all Feeling afraid as if something awful might happen: 0 = Not at all Total JESSICA-7 score (0-4 normal; 5-9 mild; 10-14 moderate; 15-21 severe): 0 Source: Developed by Drs. Tai Viramontes, Sherlyn Garza, Stalin Guerra and colleagues, with an educational marcie from [employer]. Physical exam (Primary Care) Vital Signs: Last Vital Signs Temp 97.1 F 01/22/25 14:53 Pulse 73 01/22/25 14:53 BP 110/64 01/22/25 14:53 Pulse Ox 98 01/22/25 14:53 Oxygen Delivery Method Room Air 01/22/25 14:53 BMI result Body Mass Index 29.6 Tobacco/Smoking Status: Tobacco use Status Tobacco use date assessed 01/22/25 01/22/25 14:58 Patient Tobacco Use Status Former Tobacco user 01/22/25 14:58 Tobacco use type Cigarette 01/22/25 14:58 e-Cigarette/Vaping Use Currently Using 01/22/25 14:58 PHQ-9: PHQ-9 Score PHQ-9: Total score 0 01/22/25 15:19 Depression Screening Interpretation: Negative Thrive Assessment: Date of Thrive Assessment Date Thrive assessed 01/22/25 01/22/25 14:58 Currently or been in a relationship where the following occur: No concerns reported Const General: alert; No acute distress Eyes Conjunctivae: conjunctivae normal Resp Auscultation: clear to auscultation bilaterally Cardio Rate: regular rate Rhythm: regular rhythm GI Inspection: Yes normal to inspection Extrem General: Yes normal to inspection and No edema Coding Level of Care Code Est Pt Level 4 (02281) Complex EM visit Add On G2211 Diagnoses Vasovagal episode R55 Complex regional pain syndrome i of left lower limb G90.522 Tobacco abuse Z72.0 Acquired hypothyroidism E03.9 Hypothyroidism type: acquired Melanoma C43.9 Olecranon bursitis, right elbow M70.21 Recurrent falls R29.6 Left ankle pain M25.572 Assessment & Plan Assessment & Plan (1) Vasovagal episode: Code(s): R55 - Syncope and collapse Category: Medical Plan: Patient had a complete workup in the hospital and deemed vasovagal syncope (2) Complex regional pain syndrome i of left lower limb: Code(s): G90.522 - Complex regional pain syndrome I of left lower limb Category: Medical Plan: Patient has not ever present pain on the left lower extremity seeing pain management and has been sent to [place] treated with pregabalin (3) Tobacco abuse: Comment: Quitting discussed She declined Chantix or nicotine patch stopped 10/2023 Doing vapes Code(s): Z72.0 - Tobacco use Category: Medical Plan: Patient is strongly advised to stop smoking/vaping (4) Hypothyroidism: Code(s): E03.9 - Hypothyroidism, unspecified Category: Medical Qualifiers: Hypothyroidism type: acquired Qualified Code(s): E03.9 - Hypothyroidism, unspecified Plan: Continuing with thyroid medication (5) Melanoma: Comment: R knee 12/2024 Code(s): C43.9 - Malignant melanoma of skin, unspecified Category: Medical (6) Olecranon bursitis, right elbow: Code(s): M70.21 - Olecranon bursitis, right elbow Category: Medical (7) Recurrent falls: Code(s): R29.6 - Repeated falls Category: Medical Plan: advised Physical therapy but would lik to hold off. (8) Left ankle pain: Code(s): M25.572 - Pain in left ankle and joints of left foot Category: Medical Plan History of Present Illness The patient is a 64-year-old female presenting with the management of chronic pain syndrome and evaluation of a syncope episode. She has a complex history involving hypothyroidism, tobacco use, a lumbar discectomy, and subsequent diagnoses of post-laminectomy syndrome and complex regional pain syndrome affecting the left lower limb. Despite several interventions, including medication adjustments, she experiences persistent pain mainly in the left lower extremity. Moreover, the patient describes episodes of syncope, with recent occurrences involving slurred speech and upper body convulsions leading to ER evaluation and a diagnosis of vasovagal syncope. She has frequent falls and struggles with ankle pain coupled with a burning sensation in the left leg. Dermatologically, the patient has exhibited granuloma annulare and has undergone successful excision of a stage 0 melanoma. Her condition is further complicated by anxiety disorder and skin conditions affecting her quality of life. Health Maintenance - Smoking cessation advice due to longstanding tobacco use disorder. - Annual thyroid function tests are recommended due to hypothyroidism. - Regular skin checks for melanoma, post excision. - Encourage weight management strategies. - Discussed the impact of chronic pain on activity level and importance of adherence to prescribed physical therapy. Social History - Tobacco use: Patient is a current smoker, advised cessation. - Chronic pain: Significantly affects daily functioning, increased fall risk. - Medication adherence discussed, patient on multiple medications for pain management. - Undergoing management for skin conditions. - Lifestyle potentially restricted by chronic medical issues. Review of Systems - Neurological: Reports recurrent falls. - Musculoskeletal: Reports pain and burning sensation in the left lower extremity. - Dermatological: Reports development of skin lesions. - General: Denies seizures/convulsions; Reports syncope episodes. Physical Exam Results - Ultrasound showed decreased size of the left renal cyst, no hydronephrosis. - X-ray of left tibia/fibula shows no bony abnormality. - Renal function normal, with no electrolyte imbalances noted. - CT and CTA of head/neck indicate no acute findings. - Blood work: No anemia or macrocytosis. Plan For the management of complex regional pain syndrome and chronic pain at her left lower extremity, the patient's medication regimen includes gabapentin at 3600 mg daily and pregabalin 100 mg TID. I advised against the simultaneous use of pregabalin and gabapentin as they furnish similar therapeutic effects, and alternative analgesic therapies have shown limited success. The patient needs to collaborate with a specialist in [place] for comprehensive pain management, including exploring alternative therapies and considering additional interventions. Additionally, I recommended smoking cessation to improve overall health, enhance response to treatments, and decrease surgical risks in potential future interventions. The syncope episode, likely vasovagal, does not require further diagnostic evaluation given the normal clues, but precautions against known triggers and maintaining hydration should be explored. I ordered echocardiography to rule out potential cardiac contributions, though prior senior investigator reports appeared unremarkable. Notably, I emphasized continuing regular dermatological assessments post-melanoma excision and advocated weight management and physical activity to address fall risks. I encouraged the initiation of outpatient physical therapy to improve balance and strength, potentially reducing fall frequency. Patient was informed and verbally consented to the use of an ambient scribe for clinic note documentation during this visit. Discussion Notes During the consultation, I emphasized the complexity of the patient's chronic pain and the necessity of a multifaceted approach to managing her condition. We discussed potential alternative treatment options for pain management, including reconsideration of medications like pregabalin versus gabapentin and other interdisciplinary modalities possible in coordination with a [place] pain clinic. The patient was informed of the diagnosis of vasovagal syncope and educated on preventive strategies to mitigate recurrent episodes. I advised her on the paramount importance of smoking cessation to improve treatment outcomes and overall health. Furthermore, I assured her the complete excision of the melanoma with no residual malignancy. We addressed the potential benefit of physical therapy and discussed ongoing monitoring of skin conditions with dermatology. I documented plans for an echocardiogram to rule out structural contributions to her syncopal episodes. Patient Instructions - Continue with current pain management medication as prescribed. - Schedule appointments with dermatology for routine follow-up post-melanoma excision. - Consider physical therapy for strengthening and balance improvement. - Stay hydrated and avoid potential triggers for vasovagal syncope. - Strict adherence to thyroid medication regimen; anticipate necessary annual thyroid function tests. - Seek smoking cessation support to enhance overall health and treatment efficacy. - Report any new or worsening symptoms, particularly regarding balance or syncope, immediately. Orders: Orders MR ankle LT wo con Today M25.572 - Pain in left ankle and joints of left foot MR hip LT wo con Today G90.522 - Complex regional pain syndrome I of left lower limb CA echo transthoracic complete Today R55 - Syncope and collapse Medications: Changed From gabapentin 1,200 mg (2 x 600 mg) PO TID 90 days 540 tabs 0RF M96.1 - Postlaminectomy syndrome, not elsewhere classified To gabapentin 1,800 mg PO BID M96.1 - Postlaminectomy syndrome, not elsewhere classified Refilled alprazolam 0.25 mg PO DAILY 30 tabs 0RF R55 - Syncope and collapse
[2025-01-22 14:53] VITALS: BP 110/64; PULSE 73; TEMP 36.2; O2SAT 98; BMI 29.6
== END 2025-01-22 15:48 | disposition home or self-care (01) ==
LOC: HO.HMCH 14:41
PROVIDERS: PCP Internal Medicine; Visit Provider Internal Medicine
DX: R55 Syncope and collapse (principal); G90.522 Complex regional pain syndrome I of left lower limb; C43.9 Malignant melanoma of skin, unspecified; Z72.0 Tobacco use; E03.9 Hypothyroidism, unspecified; M70.21 Olecranon bursitis, right elbow; R29.6 Repeated falls; M25.572 Pain in left ankle and joints of left foot

== ENCOUNTER → 2025-01-22 14:40 | Outpatient (BNVA) | payer OTHER, MEDICARE, MEDICAID, SELFPAY | PROVIDERS: PCP Internal Medicine; Visit Provider Internal Medicine | DX: R55 Syncope and collapse (principal); G90.522 Complex regional pain syndrome I of left lower limb; E03.9 Hypothyroidism, unspecified; M70.21 Olecranon bursitis, right elbow; R29.6 Repeated falls; M25.572 Pain in left ankle and joints of left foot; F17.210 Nicotine dependence, cigarettes, uncomplicated; Z85.820 Personal history of malignant melanoma of skin | CPT/HCPCS: 96127; 99212 ==

== ENCOUNTER 2025-02-09 11:14 | Emergency (ER) | payer MEDICARE, MEDICAID, SELFPAY ==
--- NOTE | ~2025-02-09 | XR_ITS ---
CLINICAL HISTORY: distal radius tenderness 3 view left wrist Comparison: None Findings: There is a comminuted, impacted and posteriorly angulated fracture of the distal radial metaphysis. No other fractures are identified. There is no evidence of dislocation. No significant loss of joint space, osteophyte, or erosions. No radiopaque foreign body. IMPRESSION: There is a comminuted, impacted and posteriorly angulated fracture of the distal radial metaphysis. This document has been electronically signed by: Avi Braxton MD on 02/09/2025 12:10:53
--- NOTE | ~2025-02-09 | XR_ITS ---
CLINICAL HISTORY: post reduction Three views of the left wrist. COMPARISON: XR left wrist dated 02/09/25 at 11:27 EDT FINDINGS: Overlying cast obscures fine osseous details. Transverse dorsally angulated and displaced fracture of the distal left radial metaphysis. There is mildly worsened radial displacement of the distal fracture component by 0.6 cm. There is persistent dorsal angulation of the distal fracture component by approximately 20 degrees. Distal ulna appears intact. Carpal bones appear intact. Mild degenerative changes of the 1st CMC joint. IMPRESSION: 1. Transverse dorsally angulated and displaced fracture of the distal left radial metaphysis, now in cast. This document has been electronically signed by: Bo Garcia MD on 02/09/2025 13:07:06
--- NOTE | ~2025-02-09 | XR_ITS ---
CLINICAL HISTORY: slip and fall, distal wrist pain 3 view left hand Comparison: None Findings: There is a comminuted, impacted posteriorly angulated fracture of the distal radial metaphysis. No significant arthritic change. No erosions. No radiopaque foreign body. IMPRESSION: There is a comminuted, impacted posteriorly angulated fracture of the distal radial metaphysis. This document has been electronically signed by: Avi Braxton MD on 02/09/2025 12:10:36
[2025-02-09 11:15] VITALS: BP 124/81; PULSE 79; RESP 16; TEMP 36.1; O2SAT 94; BMI 27.8
--- NOTE | 2025-02-09 11:17 | ED.GENADULT ---
HPI - General Adult General Chief complaint: Extremity Injury, Upper Stated complaint: Fell on left wrist Time Seen by Provider: 02/09/25 11:30 Source: patient Mode of arrival: ambulatory Limitations: no limitations History of Present Illness ED Provider: juany amezcua np HPI narrative: Patient is a 64-year-old female right-hand dominant who presents emergency department for evaluation after mechanical slip and fall in the inclement weather outdoors prior to arrival. Resulting in pain to the left wrist with deformity. Denies numbness tingling or cold sensation to the hand. Denies prior injury to this hand. There was no associated head strike or loss of consciousness with this fall. Related Data Home Medications ?Medication ?Instructions ?Recorded ?Confirmed magnesium oxide 400 mg PO DAILY 12/30/20 01/22/25 triamcinolone acetonide 0.025 % appl topical 05/04/23 01/22/25 topical cream aspirin 81 mg tablet,delayed 81 mg PO DAILY 01/22/25 01/22/25 release (Adult Aspirin Regimen) Previous Rx's ?Medication ?Instructions ?Recorded cyanocobalamin (vitamin B-12) 1,000 mcg PO .QOD #30 caps 12/11/21 1,000 mcg capsule miscellaneous medical supply 1 ea miscellaneous DAILY #1 ea 04/02/22 Wrist SPlints #1 ea 04/21/22 toilet seat risers and Raised #1 ea 08/23/22 toilet seat toilet seat risers #2 ea 08/23/22 ascorbate calcium (vitamin C) 500 500 mg PO DAILY #30 tabs 12/17/22 mg tablet clotrimazole 1 % topical cream 1 appl topical BID 4 weeks #45 01/31/24 grams duloxetine 60 mg capsule,delayed 60 mg PO DAILY 90 days #90 caps 02/20/24 release levothyroxine 88 mcg tablet 88 mcg PO QAM #90 tabs 09/05/24 Raised toilet seat #2 ea 09/24/24 SHOWER Chair #1 ea 09/24/24 RAISED TOILET #2 ea 11/26/24 WALK IN SHOWER #1 ea 11/26/24 alprazolam 0.25 mg tablet 0.25 mg PO DAILY #30 tabs 01/22/25 gabapentin 600 mg tablet 1,800 mg (3 x 600 mg) PO BID #180 02/06/25 tabs Allergies Allergy/AdvReac Type Severity Reaction Status Date / Time No Known Allergies Allergy Verified 02/09/25 11:18 [No Known Allergies*] Review of Systems Review of Systems: Yes all other systems are reviewed and are negative [facility] Past Medical History Attestation statement: The following information was validated with the patient. Source: old records reviewed Medical History Breast cancer screening by mammogram Generalized anxiety disorder Left leg paresthesias Bacterial vaginosis Anxiety Opioid use disorder Chronic pain syndrome Postlaminectomy syndrome Complex regional pain syndrome i of left lower limb Primary osteoarthritis of left knee Tobacco abuse Renal lesion Closed left ankle fracture Cervical disc herniation Hypothyroidism Surgical History Hx of cervical discectomy H/O colonoscopy H/O lumbar discectomy Spinal stenosis History of left knee surgery Left ACL tear Family History Family History Father No problems noted. Mother Stroke Paternal Aunt Breast cancer Social History Social History Housing: House Are you a primary menagerie caretaker to a significant other at home: No Do you presently have visiting nurse or other home services: No Alcohol intake: current Alcohol intake frequency: holidays/special occasions only Alcohol type: wine Patient Tobacco Use Status: Former Tobacco user Tobacco use type: Cigarette Years Smoked: 30 e-Cigarette/Vaping Use: Currently Using Second Hand Smoke Exposure: Yes Advance Directives: No Advance Directives Information Provided: No Do you have a plan to hurt others: No Plan service: No Current occupational status: unemployed Cognitive needs: No Hearing needs: No Vision needs: No Physical Exam ED Vital Signs: Vital Signs - 24 hr 02/09/25 11:15 Temperature 96.9 F Pulse Rate 79 Respiratory Rate 16 Blood Pressure 124/81 Pulse Oximetry 94 Oxygen Delivery Method Room Air BMI result Body Mass Index 27.8 Appearance: Alert.?Oriented to person, place and time. No acute distress.?Normal affect. CVS: Heart sounds normal. Normal heart rate and rhythm.? Pulses normal.?? Respiratory: No respiratory distress.? Lung sounds clear to auscultation bilaterally?? Skin: Skin warm and dry.? Normal skin color.? Extremities: Localized swelling to the left wrist with positive deformity. 2+ radial pulse. CMS intact to the distal extremity. Neuro: Moves all extremities spontaneously. Sensation intact bilaterally. Ambulates with normal steady gait. Course Course Course Narrative: This is a rapid medical exam performed by Shruthi Rosado NP: Additional HPI, ROS, PE not included below will be deferred to primary provider. 02/09/25 11:17 Patient is a 64-year-old right hand dominant female presenting with left wrist pain after a slip and fall outside prior to arrival. + deformity L wrist, +CMS distal Plan: xrays Medications Administered Discontinued Medications Generic Name Dose Route Start Last Admin Trade Name Freq PRN Reason Stop Dose Admin Lidocaine HCl 5 ml 02/09/25 11:40 02/09/25 12:36 Lidocaine Hcl 1 % Mpf 5 Ml Vial SUBCUT 02/09/25 11:41 5 ml ONCE ONE Administration Morphine Sulfate 4 mg 02/09/25 11:40 02/09/25 11:51 Morphine Sulfate 4 Mg/Ml Cartridge IM 02/09/25 11:41 4 mg ONCE ONE Administration Protocol Ondansetron HCl 4 mg 02/09/25 11:40 02/09/25 11:51 Ondansetron Odt 4 Mg Tab.Rapdis TRANSLINGU 02/09/25 11:41 4 mg ONCE ONE Administration Procedures Orthopedic Fracture Reduction Fracture #1: Time Out Performed: Yes Side: left Fracture Reduction Location: radius Analgesia: hematoma block (1% lidocaine 5mL under aseptic technique) Technique: direct manipulation and traction/counter-traction Post Reduction X-rays Demonstrate: acceptable reduction Post-reduction neuro exam: intact Post-reduction vascular exam: intact Splint Applied: Yes Patient Tolerated Procedure: well Medical Decision Making Medical Decision Making MDM Narrative: Patient is a 64-year-old female who presents emergency department for evaluation of a mechanical slip and fall with resultant injury to the left wrist. On my interpretation of the x-ray she has a distal radius fracture with dorsal angulation. Extremities neurovascularly intact distally. Discussed with patient plan of care for manual reduction, indications for hematoma block, potential complications patient verbalizes understanding and is amenable for reduction and hematoma block. Patient to receive morphine 4 mg IM for analgesia in addition to Zofran 4 mg sublingual for nausea from the medicine. She will have a safe ride home afterwards. There was no associated head strike or loss of consciousness with this fall, she is neurovascularly intact distally. No indication for emergent head CT at this time unlikely to have ICH SDH, skull fracture. Reviewed that she will follow up outpatient with Orthopedics. All questions have been answered. Differential Diagnosis Differential Diagnoses: The differential diagnosis associated with the presentation includes (See narrative above) Independent Interpretation I performed an independent interpretation of an: Plain X-Ray (See narrative above) Radiology Impression Discussion of test interpretation with radiology: I have reviewed the radiologist's reading. Radiologist Impression: 3 view left wrist Comparison: None Findings: There is a comminuted, impacted and posteriorly angulated fracture of the distal radial metaphysis. No other fractures are identified. There is no evidence of dislocation. No significant loss of joint space, osteophyte, or erosions. No radiopaque foreign body. IMPRESSION: There is a comminuted, impacted and posteriorly angulated fracture of the distal radial metaphysis. External Record Review External record reviewed: Outpatient record Discharge Plan Discharge Clinical Impression: Distal radius fracture, left Patient Disposition: Home, Self-Care Instructions: Wrist Fracture in Adults (ED), R.I.C.E. Treatment (ED) Additional Instructions: As discussed, you have a fracture in your wrist involving your radial bone. You have been placed in a splint, this should remain in place at all times until you were seen by orthopedics. A can not get wet. You may use the sling provided to help with the weight of the splint/arm. Be sure to rest over the next few days, apply a large bag of ice over the area of the fracture for 10-15 minutes 4-6 times daily. You can take ibuprofen 200 mg, 3 tablets (600mg) every 6-8 hours as needed for pain, in addition to Tylenol 500 mg, 2 tablets (1,000mg) every 4-6 hours as needed for pain, but not to exceed 3 doses daily (3,000mg).? For pain that is severe and unrelieved by either via above I have sent a short prescription for oxycodone to your pharmacy. This medication can be addictive and it may make you drowsy. You should not drive, drink alcohol, or work while taking this medication. Contact the orthopedic office 1st thing Tuesday morning to arrange for a follow-up appointment, their contact information has been provided along with this discharge. You should return back to emergency department any new or worsening symptoms or concerns including severe worsening pain, inability to feel the fingers or move the fingers, a feeling of intense pressure swelling to the arm beneath the splint. Prescriptions: No Action miscellaneous medical supply Misc 1 ea miscellaneous DAILY Qty: 1 0RF Rx Instructions: Bilateral wrist splint (DME) Wrist SPlints See Rx Instructions .Route .MEDSUPPLY Qty: 1 0RF Rx Instructions: As directed (DME) toilet seat risers See Rx Instructions .Route .MEDSUPPLY Qty: 2 0RF Rx Instructions: As directed (DME) toilet seat risers and Raised toilet seat See Rx Instructions .Route .MEDSUPPLY Qty: 1 0RF Rx Instructions: As directed duloxetine 60 mg capsule,delayed release(DR/EC) 60 mg PO DAILY 90 Days Qty: 90 3RF levothyroxine 88 mcg tablet 88 mcg PO QAM Qty: 90 3RF (DME) WALK IN SHOWER See Rx Instructions .Route .MEDSUPPLY Qty: 1 0RF Rx Instructions: As directed (DME) RAISED TOILET See Rx Instructions .Route .MEDSUPPLY Qty: 2 0RF Rx Instructions: As directed gabapentin 600 mg tablet 1,800 mg PO BID Qty: 180 5RF magnesium oxide 400 mg magnesium tablet 400 mg PO DAILY cyanocobalamin (vitamin B-12) 1,000 mcg capsule 1,000 mcg PO .QOD Qty: 30 3RF ascorbate calcium (vitamin C) 500 mg tablet 500 mg PO DAILY Qty: 30 4RF clotrimazole 1 % cream 1 appl topical BID 28 Days Qty: 45 0RF triamcinolone acetonide 0.025 % cream topical (DME) Raised toilet seat See Rx Instructions .Route .MEDSUPPLY Qty: 2 0RF Rx Instructions: As directed (DME) SHOWER Chair See Rx Instructions .Route .MEDSUPPLY Qty: 1 0RF Rx Instructions: As directed aspirin [Adult Aspirin Regimen] 81 mg tablet,delayed release (DR/EC) 81 mg PO DAILY alprazolam 0.25 mg tablet 0.25 mg PO DAILY Qty: 30 0RF Referrals: Leo,Chelsea K, PA-C [Physician Child Nutrition Assistant] - Po,Lorenver O, MD [Primary Care Provider] - Print Language: Syriac
[2025-02-09] MEDS: Ondansetron ODT 4 MG TAB.RAPDIS TRANSLINGU (11:51)
[2025-02-09] MEDS: Morphine Sulfate 4 MG/ML CARTRIDGE IM (11:51)
[2025-02-09] MEDS: Lidocaine HCl 1 % MPF 5 ML VIAL SUBCUT (12:36)
[2025-02-09 13:42] VITALS: BP 137/72; PULSE 75; RESP 16; TEMP 36.4; O2SAT 97
== END 2025-02-09 13:43 | disposition home or self-care (01) ==
PROVIDERS: Emergency Provider Emergency Medicine; PCP Internal Medicine
DX: S52.502A Unspecified fracture of the lower end of left radius, initial encounter for closed fracture (principal); W01.0XXA Fall on same level from slipping, tripping and stumbling without subsequent striking against object, initial encounter; Y93.9 Activity, unspecified; Y92.9 Unspecified place or not applicable; Y99.8 Other external cause status; Z87.891 Personal history of nicotine dependence
CPT/HCPCS: 25605; 73100; 73110; 73120; 96372; 99282; 99284; J2003; J2270

== ENCOUNTER → 2025-02-09 11:18 | Outpatient (BNV) | payer MEDICARE, MEDICAID, SELFPAY | PROVIDERS: Emergency Provider Emergency Medicine; PCP Internal Medicine; Visit Provider Radiology Diagnostic Radiology | DX: S52.572A Other intraarticular fracture of lower end of left radius, initial encounter for closed fracture (principal); S52.501A Unspecified fracture of the lower end of right radius, initial encounter for closed fracture; W01.0XXA Fall on same level from slipping, tripping and stumbling without subsequent striking against object, initial encounter | CPT/HCPCS: 73110 ==

== ENCOUNTER 2025-02-13 08:15 | Outpatient (AMB) | payer MEDICARE, MEDICAID, SELFPAY ==
[2025-02-13 08:20] VITALS: BMI 27.8
--- NOTE | 2025-02-13 08:20 | A.OFFVIS_ITS ---
Vital Signs 02/13/25 08:20 Height 5 ft 5 in Weight 167 lb BMI 27.8 Intake Visit Reasons: FC- Distal radius fracture, left DOI 02/09/25 Intake Note: Claudia is a 64 year old right hand dominant female who presents today for a fracture care visit for her left wrist s/p fall DOI: 02/09/25. Patient states she fell down due to her left knee giving out. States she put her hand out to break her fall and fractured her distal radius. Seen in [facility] ED same day where her fracture was confirmed, she was reduced and then splinted. Currently states her pain is 8/10. States motrin helps if she take it every 8 hours. Denies numbness or tingling. Allergies No Known Allergies [No Known Allergies*] Allergy (Verified 02/13/25 08:26) HPI HPI FC- Distal radius fracture, left DOI 02/09/25: Details: Claudia is a 64 year old right hand dominant woman who presents for a left distal radius fracture, S/P fall, DOI: 02/09/25. She was seen in the ED where her fracture was reduced & splinted. She complains of pain in her wrist. She takes Motrin as instructed but says this gives minimal relief. She denies any numbness or tingling. She says she fell due to her left leg giving way. 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 She sees Pain Management for this. She denies smoking but says she vapes. 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 [facility] Medical History Breast cancer screening by mammogram Generalized anxiety disorder Left leg paresthesias Bacterial vaginosis Anxiety Opioid use disorder Chronic pain syndrome Postlaminectomy syndrome Complex regional pain syndrome i of left lower limb Primary osteoarthritis of left knee Tobacco abuse Renal lesion Closed left ankle fracture Cervical disc herniation Hypothyroidism Surgical History Hx of cervical discectomy H/O colonoscopy H/O lumbar discectomy Spinal stenosis History of left knee surgery Left ACL tear Family History Father No problems noted. 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 Cognitive needs: No Hearing needs: No Vision needs: No Review of Systems Const All systems reviewed & are unremarkable except as noted in HPI and below Physical Exam Vital Signs: BMI result Body Mass Index 27.8 Const General: cooperative, healthy appearing and no acute distress Orientation/consciousness: patient oriented x3 HEENT Head: Yes normocephalic and Yes atraumatic Eyes EOM: EOMs intact bilaterally Resp Effort & Inspection: normal respiratory effort and able to speak in complete sentences Cardio Jugular venous distension: no JVD Skin General skin exam: turgor normal Rashes: no rashes Neuro General: patient oriented x3 Extrem Other: Evaluation of Left Upper Extremity: The patient is alert, oriented, and in no acute distress Splint clean, dry, and intact. The splint was not removed because she was reduced in the emergency department. Neuro: Sensation intact to the tips of all digits Vascular: Cap refill brisk ROM: She is seen wearing her wrist splint today, which was not removed Denies any pain about the elbow or shoulder Radiographs: 3 views of left wrist post-reduction radiographs from 02/09/25 were reviewed by me today in clinic. They show a displaced distal radius fracture at [facility] Appearance: grossly normal Affect: normal affect Attitude: cooperative Assessment & Plan Assessment & Plan (1) Distal radius fracture, left: Code(s): S52.502A - Unspecified fracture of the lower end of left radius, initial encounter for closed fracture Category: Medical Qualifiers: Encounter type: initial encounter Fracture morphology: Colles' Fracture type: closed Qualified Code(s): S52.532A - Colles' fracture of left radius, initial encounter for closed fracture (2) Recurrent falls: Code(s): R29.6 - Repeated falls Category: Medical (3) Chronic pain syndrome: Code(s): G89.4 - Chronic pain syndrome Category: Medical (4) Tobacco abuse: Comment: Quitting discussed She declined Chantix or nicotine patch stopped 10/2023 Doing vapes Code(s): Z72.0 - Tobacco use Category: Medical Plan Assessment & Plan: 1. Left distal radius fracture, displaced S/P fall, DOI: 02/09/25 Reduced in ED: 02/09/25 I educated her about this condition I discussed operative and non-operative treatment options The patient would like to proceed with surgery The risks and benefits of operative treatment were discussed with the patient and the patient wishes to proceed with surgery. These risks include, but are not limited to risk of damage to blood vessels, nerves, tendons, infection, recurrence, incomplete relief of preoperative symptoms, persistent pain, possible need for further surgery and the risks associated with regional blocks and anesthesia. I explained the effects of smoking on wound/bone healing, and recommend they stop smoking prior to surgery & while healing. This includes vaping, Marijuana, and other Nicotine products including patches used to help quit. They expressed understanding. The plan is to take the patient to the operating room sometime on 02/14/25 for the following procedures: 1. Left distal radius open reduction IF, under general All of the preoperative paperwork including the consent was reviewed today. All the patient's questions were answered. The patient understands that they will be contacted by our rn surgery soon to schedule this procedure She denies Diabetes, blood thinners, asthma, heart, lung, kidney issues She vapes, and has a hx of frequent falls, CPS, CRPS affecting her LLE, and anxiety disorder Scribed for Sarahy Ramirez MD by Denis Silva medical transport specialist, on 02/13/25 at 8:45 AM, EST. Coding Level of Care Code New Pt Level 4 (31861) Diagnoses Distal radius fracture, left S52.532A Encounter type: initial encounter Fracture morphology: Colles' Fracture type: closed Recurrent falls R29.6 Chronic pain syndrome G89.4 Tobacco abuse Z72.0
--- OUTSIDE RECORDS SUMMARY | 2025-02-13 08:25 | XMS_ITS | Encounter Summary ---
Author Organization [facility] Address [address] [place] [address] Care Team Providers Care Procurement Services Manager Name Role Phone Hayden Man MD Primary Care Provider [phone] Maggy Swartz MD Unavailable [phone] Encounter Details Date Type Department Care Team (Late st Contact Info) Description 09/11/2021 Scanned Document [facility] Neurosurgery [place] [address] [phone] Maggy Swartz MD [address] [address] Social History Tobacco Use Types Packs/Day Years Used Date Smoking Tobacco: Every Day Cigarettes 0.3 30 Smokeless Tobacco: Never Alcohol Use Standard Drinks/Week Comments Yes 0 (1 standard drink = 0.6 oz pur e alcohol) 3 glasses of wine per week Comments No Sex and Gender Information Value Date Recorded Sex Assigned at Not on file Legal Sex Female 9:09 AM EDT Gender Identity Female 06/19/2020 9:04 PM EDT Sexual Orientation Heterosexual (straight) 06/19 9:04 PM EDT documented as of this encounter Plan of Treatment Not on file documented as of this encounter Visit Diagnoses Not on filedocumented in this encounter Care Teams Procurement Services Manager Relationship Specialty Start Date End Date Hayden Man MD [address] [place] [address] [place] [address] PCP - General Internal Medicine 05/06/20 Maggy Swartz MD [address] [place] [address] Surgery, Neurosurgery 08/20/20 documented as of this encounter
--- OUTSIDE RECORDS SUMMARY | 2025-02-13 08:25 | XMS_ITS | Encounter Summary ---
Author Organization [address] [address] Care Team Providers Care Construction Coordinator Name Role Phone Hayden Man MD Primary Care Provider [phone] Maggy Swartz MD Unavailable [phone] Encounter Details Date Type Department Care Team (Late st Contact Info) Description 08/22/2020 Scanned Document [facility] Neurosurgery [place] 85 [facility] [address] [place] [phone] Maggy Swartz MD 85 [facility] [place] [address] [place] [address] Social History Tobacco Use Types Packs/Day Years Used Date Smoking Tobacco: Every Day Cigarettes 0.3 30 Smokeless Tobacco: Never Alcohol Use Standard Drinks/Week Comments Yes 0 (1 standard drink = 0.6 oz pur e alcohol) 3 glasses of wine per week Comments Unknown Sex and Gender Information Value Date Recorded [...] on filedocumented in this encounter Care Teams Construction Coordinator Relationship Specialty Start Date End Date Hayden Man MD [address] [place] [address] Dr Vo [address] [place] [address] PCP - General Internal Medicine 05/06/20 Maggy Swartz MD [address] [place] [address] Surgery, Neurosurgery 08/20/20 documented as of this encounter
--- OUTSIDE RECORDS SUMMARY | 2025-02-13 08:25 | XMS_ITS | Encounter Summary ---
Author Organization [facility] Address [address] [place] [address] Care Team Providers Care Dry Color Tester Name Role Phone Hayden Man MD Primary Care Provider [phone] Maggy Swartz MD Unavailable Encounter Details Date Type Department Care Team (Late st Contact Info) Description 03/24/2021 Scanned Document [facility] Neurosurgery [address] [address] Bibi Maza PA Valid Address Needed Social [...] on filedocumented in this encounter Care Teams Dry Color Tester Relationship Specialty Start Date End Date Hayden Man MD [address] [place] [address] [place] [address] PCP - General Internal Medicine 05/06/20 Maggy Swartz MD [address] [place] [address] Surgery, Neurosurgery 08/20/20 documented as of this encounter
--- OUTSIDE RECORDS SUMMARY | 2025-02-13 08:25 | XMS_ITS | Encounter Summary ---
Author Organization [facility] Address [address] [place] [address] Care Team Providers Care Manager Meeting Name Role Phone Hayden Man MD Primary Care Provider [phone] Maggy Swartz MD Unavailable [phone] Encounter Details Date Type Department Care Team (Late st Contact Info) Description 02/02/2021 Scanned Document [facility] Neurosurgery [place] [address] [address] Maggy Swartz MD [address] [address] Social History Tobacco Use Types Packs/Day Years [...] filedocumented in this encounter Care Teams Manager Meeting Relationship Specialty Start Date End Date Hayden Man MD [address] [place] [address] [place] [address] PCP - General Internal Medicine 05/06/20 Maggy Swartz MD [address] [place] [address] Surgery, Neurosurgery 08/20/20 documented as of this encounter
--- OUTSIDE RECORDS SUMMARY | 2025-02-13 08:25 | XMS_ITS | Encounter Summary ---
Author Organization [facility] Address [address] [place] [address] Care Team Providers Care Broadcast Designer Name Role Phone Hayden Man MD Primary Care Provider [phone] Maggy Swartz MD Unavailable [phone] Encounter Details Date Type Department Care Team (Late st Contact Info) Description 12/16/2020 Scanned Document [facility] Neurosurgery [address] [place] [address] Bibi Maza PA Valid Address Needed Social [...] on filedocumented in this encounter Care Teams Broadcast Designer Relationship Specialty Start Date End Date Hayden Man MD [address] [place] [address] [place] [address] PCP - General Internal Medicine 05/06/20 Maggy Swartz MD [address] [place] [address] Surgery, Neurosurgery 08/20/20 documented as of this encounter
--- OUTSIDE RECORDS SUMMARY | 2025-02-13 08:25 | XMS_ITS | Clinical Summary ---
Author Organization [facility] Address [address] [place] [address] Care Team Providers Care Furnace Helper Name Role Phone Hayden Man MD Primary Care Provider [phone] Maggy Swartz MD Unavailable [phone] Allergies No known active allergies Medications Acetaminophen 500 MG coapsule Take 1 capsule (500 mg total) by mouth 4 times daily (every 6 hours) as needed. Do not take day of surgery Active ALPRAZolam (XANAX) 0.25 MG tablet Take 1 tablet (0.25 mg total) by mouth nightly as needed. Take the night before surgery 0 Active levothyroxine (SYNTHROID, LEVOTHROID) 88 MCG tablet [...] Active ascorbic acid (VITAMIN C) 500 MG tabletIndications :Lumbar disc herniation with radiculopathy Take 2 tablets (1,000 mg total) by mouth daily. Do not start before September 11, 2020. 60 tablet 0 Active tiZANidine (ZANAFLEX) 2 MG tabletIndications :Lumbar disc herniation with radiculopathy Take 1 tablet (2 mg total) by mouth 3 times daily (every 8 hours) as needed for muscle spasms. 90 tablet 3 0 Active oxyCODONE-acetami nophen (PERCOCET) 5-325 mg per tabletIndications :Lumbar disc herniation with radiculopathy,Spo ndylolisthesis of lumbar region,Spinal stenosis, lumbar region, without neurogenic claudication Take 1 tablet by mouth every 4 (four) hours as needed for moderate pain or severe pain. May take 1 or two tablets ever 4hrs if needed for pain. Max Daily Amount: 6 tablets 21 tablet 0 Active polyethylene glycol (MiraLax) 17 GM/SCOOP powderIndications :Lumbar disc herniation with radiculopathy Take 17 g by mouth daily. 510 g 0 Active methylPREDNISolon e (MEDROL DOSEPAK) 4 MG tabletIndications :Status post lumbar spinal fusion follow package directions 21 tablet 0 Active pregabalin (LYRICA) 75 MG capsuleIndication s:Lumbar disc herniation with radiculopathy,Sta tus post lumbar discectomy Take 1 capsule (75 mg total) by mouth 2 (two) times a day. 60 capsule 2 1 Active DULoxetine (CYMBALTA) 60 MG capsule 2 Active gabapentin (NEURONTIN) 600 MG tablet 2 Active Active Problems Problem Noted Date Diagnosed [...] this topic Medical Devices Implanted Type Area Configuration Engineer Device Identifier Shelf Expiration Date Model / Serial / Lot [id number] Spacer Spinal [id number] Cpstn Peek Ptc Lmbr Intrbd Fs Sterl - [id number] Implanted:Qty: 1 on 09/08/2020 by Maggy Swartz MD at [facility] Cage N/A: Spine Lumbar [employer] MINIMALLY INVASIVE T 10/20/2026 [id number] / / [id number] Ashok Spinal 70mm 5.5mm Cd Hzn Crv Ti Cp4 Nonst - [id number] Implanted:Qty: 2 on 09/08/2020 by Maggy Swartz MD at [facility] Nail/Ashok N/A: Spine Lumbar [employer] MINIMALLY INVASIVE T [id number] / / [id number] Screw Bone Spine Solera Cd Hzn 40mm Cocr 5.5mm Ma Nonst 5.5 - [id number] Implanted:Qty: 2 on 09/08/2020 by Maggy Swartz MD at [facility] Spine N/A: Spine Lumbar [employer] MINIMALLY INVASIVE T [id number] / / [id number] Screw Bone Spine Cd Hzn Solera 45mm Ti Cocr 5.5mm Ma Nonst - [id number] Implanted:Qty: 4 on 09/08/2020 by Maggy Swartz MD at [facility] Spine N/A: Spine Lumbar [employer] MINIMALLY INVASIVE T [id number] / / [id number] Screw Set Ti Spine Brk Off Cd Hzn Nonst 5.5 Mm Ashok - [id number] Implanted:Qty: 6 on 09/08/2020 by Maggy Swartz MD at [facility] Spine N/A: Spine Lumbar [employer] MINIMALLY INVASIVE T [id number] / / [id number] Filler Bone Void 10cc Dbx Algrf Frzdr Putty - [id number] Implanted:Qty: 1 on 09/08/2020 by Maggy Swartz MD at [facility] Void Filler N/A: Spine Lumbar MUSCULOSKELETAL TRANSPLANT FOU 03/19/2022 [id number] / [id number] / [id number] Filler Bone Void 10cc Dbx Algrf Frzdr Putty - [id number] Implanted:Qty: 1 on 09/08/2020 by Maggy Swartz MD at [facility] Void Filler N/A: Spine Lumbar [employer]KELET[employer] TRANSPLANT FOU 12/13/2021 [id number] / [id number] / [id number] Filler Bone Void 10cc Dbx Algrf Frzdr Putty - [id number] Implanted:Qty: 1 on 09/08/2020 by Maggy Swartz MD at [facility] Void Filler N/A: Spine Lumbar [employer]KELET[employer] TRANSPLANT FOU 03/19/2022 [id number] / [id number] / Insurance [facility] Advance Directives * Full Code (Latest Code Status on File) Date Activated Date Inactivated Comments 09/08/2020 8:09 PM * Full Code Date Activated Date Inactivated Comments 09/08/2020 9:46 AM 09/08/2020 8:09 PM * Full Code Date Activated Date Inactivated Comments 06/25/2020 3:59 PM 09/08/2020 9:10 AM * Full Code Date Activated Date Inactivated Comments 06/25/2020 8:24 AM 06/25/2020 3:59 PM Care Teams Furnace Helper Relationship Specialty Start Date End Date Hayden aMn MD [address] [place] [address], [place] [address] PCP - General Internal Medicine 05/06/20 Maggy Swartz MD [address] [place] [address] Surgery, Neurosurgery 08/20/20
--- OUTSIDE RECORDS SUMMARY | 2025-02-13 08:25 | XMS_ITS | Encounter Summary ---
Author Organization [facility] Address [address] [place] [address] Care Team Providers Care Mixed Livestock Farm Worker Name Role Phone Hayden Man MD Primary Care Provider [phone] Maggy Swartz MD Unavailable [phone] Encounter Details Date Type Department Care Team (Late st Contact Info) Description 02/02/2021 Scanned Document [facility] Neurosurgery [place] [address] [address] Maggy Swartz MD [address] [address] Social History Tobacco Use Types Packs/Day Years [...] on filedocumented in this encounter Care Teams Mixed Livestock Farm Worker Relationship Specialty Start Date End Date Hayden Man MD [address] [place] [address] [place] [address] PCP - General Internal Medicine 05/06/20 Maggy Swartz MD [address] [place] [address] Surgery, Neurosurgery 08/20/20 documented as of this encounter
--- OUTSIDE RECORDS SUMMARY | 2025-02-13 08:25 | XMS_ITS | Encounter Summary ---
Author Organization [facility] Address [address] [place] [address] Care Team Providers Care Band Tier Name Role Phone Hayden Man MD Primary Care Provider [phone] Maggy Swartz MD Unavailable [phone] Encounter Details Date Type Department Care Team (Late st Contact Info) Description 12/16/2020 Scanned Document [facility] [place] Neurosurgery [address] [place] [address] Bibi Maza PA Valid Address Needed Social [...] on filedocumented in this encounter Care Teams Band Tier Relationship Specialty Start Date End Date Hayden Man MD [address] [place] [address] [place] [address] PCP - General Internal Medicine 05/06/20 Maggy Swartz MD [address] [place] [address] Surgery, Neurosurgery 08/20/20 documented as of this encounter
--- OUTSIDE RECORDS SUMMARY | 2025-02-13 08:25 | XMS_ITS | Encounter Summary ---
Author Organization [facility] Address [address] [place] [address] Care Team Providers Care Bullion Weigher Name Role Phone Hayden Man MD Primary Care Provider [phone] Maggy Swartz MD Unavailable [phone] Encounter Details Date Type Department Care Team (Late st Contact Info) Description 07/22/2021 Scanned Document [facility] Neurosurgery [place] [address] [address] Maggy Swartz MD [address] [place] [address] [address] Social History Tobacco Use Types Packs/Day Years [...] on filedocumented in this encounter Care Teams Bullion Weigher Relationship Specialty Start Date End Date Hayden Man MD [address] [place] [address] [place] [address] PCP - General Internal Medicine 05/06/20 Maggy Swartz MD [address] [place] [address] Surgery, Neurosurgery 08/20/20 documented as of this encounter
--- OUTSIDE RECORDS SUMMARY | 2025-02-13 08:25 | XMS_ITS | Encounter Summary ---
Author Organization [facility] Address [address] [place] [address] Care Team Providers Care Cloth Worker Name Role Phone Hayden Man MD Primary Care Provider [phone] Maggy Swartz MD Unavailable [phone] Reason for Visit * Reason Comments Other Encounter Details Date Type Department Care Team (Late st Contact Info) Description 04/03/2021 Telephone [facility] Urologic Surgery [address] [phone] Hardik Reese MD [address] [place] [address] Other Social History Tobacco Use Types [...] Ct abdomen with and without contrast to [facility]. documented in this encounter Plan of Treatment Not on file documented as of this encounter Visit Diagnoses Not on filedocumented in this encounter Care Teams Cloth Worker Relationship Specialty Start Date End Date Hayden Man MD [address] [place] [address] [address] [place] [address] PCP - General Internal Medicine 05/06/20 Maggy Swartz MD [address] [place] [address] Surgery, Neurosurgery 08/20/20 documented as of this encounter
--- OUTSIDE RECORDS SUMMARY | 2025-02-13 08:25 | XMS_ITS | Encounter Summary ---
Author Organization [address] [address] Care Team Providers Care Jacquard Fixer Name Role Phone Hayden Man MD Primary Care Provider [phone] Maggy Swartz MD Unavailable [phone] Encounter Details Date Type Department Care Team (Late st Contact Info) Description 09/17/[address] [facility] Neurosurgery [place] 85 [facility] [address] [place] [phone] Maggy Swartz MD 85 [facility] [address] [place] [address] Social History Tobacco Use Types Packs/Day Years [...] on filedocumented in this encounter Care Teams Jacquard Fixer Relationship Specialty Start Date End Date Hayden Man MD [address] [place] [address] Dr Vo [address] [place] [address] PCP - General Internal Medicine 05/06/20 Maggy Swartz MD [address] [place] [address] Surgery, Neurosurgery 08/20/20 documented as of this encounter
--- OUTSIDE RECORDS SUMMARY | 2025-02-13 08:25 | XMS_ITS | Encounter Summary ---
Author Organization [facility] Address [address] [place] [address] Care Team Providers Care Senior Financial Consultant Name Role Phone Hayden Man MD Primary Care Provider [phone] Maggy Swartz MD Unavailable [phone] Encounter Details Date Type Department Care Team (Late st Contact Info) Description 12/16/2020 Scanned Document [facility] Neurosurgery [address] [place] [address] Bibi Maza PA Valid Address Needed Social [...] on filedocumented in this encounter Care Teams Senior Financial Consultant Relationship Specialty Start Date End Date Hayden Man MD [address] [place] [address] [place] [address] PCP - General Internal Medicine 05/06/20 Maggy Swartz MD [address] [place] [address] Surgery, Neurosurgery 08/20/20 documented as of this encounter
--- OUTSIDE RECORDS SUMMARY | 2025-02-13 08:25 | XMS_ITS | Encounter Summary ---
Author Organization [facility] Address [address] [place] [address] Care Team Providers Care State Director Name Role Phone Hayden Man MD Primary Care Provider [phone] Maggy Swartz MD Unavailable [phone] Reason for Visit * Reason Comments Other needs crea ordered Encounter Details Date Type Department Care Team (Late st Contact Info) Description 12/12/2020 Telephone [facility] Urologic Surgery [address] [phone] Hardik Reese MD [address] [place] [address] Other (needs crea ordered) Social History [...] PO contrast. I advised I would contact [place] radiology as we do notuse PO contrast for the CT scan of the abdomen. She is getting her labs done today. * Telephone Encounter - Jacoby East LPN - 12/12/2020 2:42 PM EST Order for creatinine to be drawn at [facility]. documented in this encounter Plan of Treatment Not on file documented as of this encounter Visit Diagnoses Not on filedocumented in this encounter Care Teams State Director Relationship Specialty Start Date End Date Po, Hayden Serrano MD [address] [place] [address] Dr Vo [address] [place] [address] PCP - General Internal Medicine 05/06/20 Maggy Swartz MD [address] [place] [address] Surgery, Neurosurgery 08/20/20 documented as of this encounter
--- OUTSIDE RECORDS SUMMARY | 2025-02-13 08:25 | XMS_ITS | Encounter Summary ---
Author Organization [facility] Address [address] [place] [address] Care Team Providers Care Dispatcher Ship Pilot Name Role Phone Hayden Man MD Primary Care Provider [phone] Maggy Swartz MD Unavailable [phone] Reason for Visit * Reason Comments Medication Refill Encounter Details Date Type Department Care Team (Late st Contact Info) Description 09/27/2020 Refill [facility] Neurosurgery [address] [place] [phone] Bibi Maza PA Valid Address Needed Lumbar [...] myelopathy documented in this encounter Care Teams Dispatcher Ship Pilot Relationship Specialty Start Date End Date Hayden Man MD [address] [place] [address] [address] [place] [address] PCP - General Internal Medicine 05/06/20 Maggy Swartz MD [address] [place] [address] Surgery, Neurosurgery 08/20/20 documented as of this encounter
== END 2025-02-13 08:59 | disposition home or self-care (01) ==
LOC: HO.HOS 08:15
PROVIDERS: PCP Internal Medicine; Visit Provider Orthopaedic Surgery
DX: S52.532A Colles' fracture of left radius, initial encounter for closed fracture (principal); R29.6 Repeated falls
CPT/HCPCS: 99204

== ENCOUNTER → 2025-02-13 08:15 | Outpatient (BNVA) | payer MEDICARE, MEDICAID, SELFPAY | PROVIDERS: PCP Internal Medicine; Visit Provider Orthopaedic Surgery | DX: S52.532A Colles' fracture of left radius, initial encounter for closed fracture (principal); G89.4 Chronic pain syndrome; R29.6 Repeated falls; W19.XXXA Unspecified fall, initial encounter; Y93.9 Activity, unspecified; Y92.9 Unspecified place or not applicable; Y99.9 Unspecified external cause status; Z72.0 Tobacco use | CPT/HCPCS: 99202 ==

== ENCOUNTER 2025-02-14 09:25 | Day surgery (SDC) | payer MEDICARE, MEDICAID, SELFPAY ==
--- OUTSIDE RECORDS SUMMARY | 2025-02-12 17:26 | XMS_ITS | Encounter Summary ---
Author Organization [facility] Address [address] [place] [address] Care Team Providers Care Floating Operator Name Role Phone Hayden Man MD Primary Care Provider [phone] Maggy Swartz MD Unavailable [phone] Encounter Details Date Type Department Care Team (Late st Contact Info) Description 08/22/2020 Scanned Document [facility] Neurosurgery [place] [address] [address] Maggy Swartz MD 85 [facility] [address] [place] [address] Social History Tobacco Use Types Packs/Day [...] on filedocumented in this encounter Care Teams Floating Operator Relationship Specialty Start Date End Date Hayden Man MD NPI: [id number] [place] [address] [place] [address] PCP - General Internal Medicine 05/06/20 Maggy Swartz MD [address] [place] [address] Surgery, Neurosurgery 08/20/20 documented as of this encounter
--- OUTSIDE RECORDS SUMMARY | 2025-02-12 17:26 | XMS_ITS | Encounter Summary ---
Author Organization [facility] Address [address] [place] [address] Care Team Providers Care Truck Striker Name Role Phone Hayden Man MD Primary Care Provider [phone] Maggy Swartz MD Unavailable [phone] Encounter Details Date Type Department Care Team (Late st Contact Info) Description 12/16/2020 Scanned Document [facility] Neurosurgery [address] [place] [address] Bibi Maza PA Valid Address Needed Social [...] on filedocumented in this encounter Care Teams Truck Striker Relationship Specialty Start Date End Date Hayden Man MD [address] [place] [address] [place] [address] PCP - General Internal Medicine 05/06/20 Maggy Swartz MD [address] [place] [address] Surgery, Neurosurgery 08/20/20 documented as of this encounter
--- OUTSIDE RECORDS SUMMARY | 2025-02-12 17:26 | XMS_ITS | Encounter Summary ---
Author Organization [facility] Address [address] [place] [address] Care Team Providers Care Employee Development Director Name Role Phone Hayden Man MD Primary Care Provider [phone] Maggy Swartz MD Unavailable [phone] Encounter Details Date Type Department Care Team (Late st Contact Info) Description 09/11/2021 Scanned Document [facility] Neurosurgery [place] [address] [phone] Maggy Swartz MD [address] [address] Social History Tobacco Use Types Packs/Day Years [...] on filedocumented in this encounter Care Teams Employee Development Director Relationship Specialty Start Date End Date Hayden Man MD [address] [place] [address] [place] [address] PCP - General Internal Medicine 05/06/20 Maggy Swartz MD [address] [place] [address] Surgery, Neurosurgery 08/20/20 documented as of this encounter
--- OUTSIDE RECORDS SUMMARY | 2025-02-12 17:26 | XMS_ITS | Encounter Summary ---
Author Organization [facility] Address [address] [place], [place] [id number] Care Team Providers Care Seafood Packer Name Role Phone Hayden Man MD Primary Care Provider [phone] Maggy Swartz MD Unavailable [phone] Encounter Details Date Type Department Care Team (Late st Contact Info) Description 09/17/2020 Scanned Document [facility] Neurosurgery [place] [address] [address] Maggy Swartz MD [address] [facility] [address] [place] [address] Social History Tobacco Use Types Packs/Day [...] on filedocumented in this encounter Care Teams Seafood Packer Relationship Specialty Start Date End Date Hayden Man MD NPI: [id number] [place] [address] [address] [place] [address] PCP - General Internal Medicine 05/06/20 Maggy Swartz MD [address] [place] [address] Surgery, Neurosurgery 08/20/20 documented as of this encounter
--- OUTSIDE RECORDS SUMMARY | 2025-02-12 17:26 | XMS_ITS | Encounter Summary ---
Author Organization [facility] Address [address] [place] [address] Care Team Providers Care Power Line Installer And Repairer Name Role Phone Hayden Man MD Primary Care Provider [phone] Maggy Swartz MD Unavailable [phone] Reason for Visit * Reason Comments Medication Refill Encounter Details Date Type Department Care Team (Late st Contact Info) Description 09/27/2020 Refill [facility] Neurosurgery [address] [place] [phone] Bibi Maza PA Valid Address Needed Lumbar [...] myelopathy documented in this encounter Care Teams Power Line Installer And Repairer Relationship Specialty Start Date End Date Hayden Man MD [address] [place] [address] [address] [place] [address] PCP - General Internal Medicine 05/06/20 Maggy Swartz MD [address] [place] [address] Surgery, Neurosurgery 08/20/20 documented as of this encounter
--- OUTSIDE RECORDS SUMMARY | 2025-02-12 17:26 | XMS_ITS | Encounter Summary ---
Author Organization [facility] Address [address] [place] [address] Care Team Providers Care Order Caller Name Role Phone Hayden Man MD Primary Care Provider [phone] Maggy Swartz MD Unavailable [phone] Encounter Details Date Type Department Care Team (Late st Contact Info) Description 12/16/2020 Scanned Document [facility] Neurosurgery [address] [place] [address] Bibi Maza PA Valid Address Needed Social [...] on filedocumented in this encounter Care Teams Order Caller Relationship Specialty Start Date End Date Hayden Man MD [address] [place] [address] [place] [address] PCP - General Internal Medicine 05/06/20 Maggy Swartz MD [address] [place] [address] Surgery, Neurosurgery 08/20/20 documented as of this encounter
--- OUTSIDE RECORDS SUMMARY | 2025-02-12 17:26 | XMS_ITS | Encounter Summary ---
Author Organization [facility] Address [address] [place] [address] Care Team Providers Care It Operations Analyst Name Role Phone Hayden Man MD Primary Care Provider [phone] Maggy Swartz MD Unavailable [phone] Encounter Details Date Type Department Care Team (Late st Contact Info) Description 02/02/2021 Scanned Document [facility] Neurosurgery [place] [address] [address] Maggy Swartz MD [address] [address] Social History Tobacco Use Types Packs/Day Years [...] on filedocumented in this encounter Care Teams It Operations Analyst Relationship Specialty Start Date End Date Hayden Man MD [address] [place] [address] [place] [address] PCP - General Internal Medicine 05/06/20 Maggy Swartz MD [address] [place] [address] Surgery, Neurosurgery 08/20/20 documented as of this encounter
--- OUTSIDE RECORDS SUMMARY | 2025-02-12 17:26 | XMS_ITS | Encounter Summary ---
Author Organization [facility] Address [address] [place] [address] Care Team Providers Care Maintenance Mechanic Helper Name Role Phone Hayden Man MD Primary Care Provider [phone] Maggy Swartz MD Unavailable [phone] Encounter Details Date Type Department Care Team (Late st Contact Info) Description 07/22/2021 Scanned Document [facility] Neurosurgery [place] [address] [address] Maggy Swartz MD [address] [address] Social History Tobacco Use Types Packs/Day Years [...] on filedocumented in this encounter Care Teams Maintenance Mechanic Helper Relationship Specialty Start Date End Date Hayden Man MD [address] [place] [address] [place] [address] PCP - General Internal Medicine 05/06/20 Maggy Swartz MD [address] [place] [address] Surgery, Neurosurgery 08/20/20 documented as of this encounter
--- OUTSIDE RECORDS SUMMARY | 2025-02-12 17:26 | XMS_ITS | Clinical Summary ---
Author Organization [facility] Address [address] [place] [address] Care Team Providers Care Signs Cleaner Name Role Phone Hayden Man MD Primary Care Provider [phone] Maggy Swartz MD Unavailable [phone] Allergies No known active allergies Medications [...] this topic Medical Devices Implanted Type Area Log Pond Worker Device Identifier Shelf Expiration Date Model / Serial / Lot [id number] Spacer Spinal [id number] Cpstn Peek Ptc Lmbr Intrbd Fs Sterl - [id number] Implanted:Qty: 1 on 09/08/2020 by Maggy Swartz MD at [facility] Cage N/A: Spine Lumbar [employer] MINIMALLY INVASIVE T 10/20/2026 [id number] / / [id number] Ashok Spinal 70mm 5.5mm Cd Hzn Crv Ti Cp4 Nonst - [id number] Implanted:Qty: 2 on 09/08/2020 by Maggy Swartz MD at [facility] Nail/Ashok N/A: Spine Lumbar [employer] MINIMALLY INVASIVE T [id number] / / [id number] Screw Bone Spine Solera Cd Hzn 40mm Cocr 5.5mm Ma Nonst 5.5 - [id number] Implanted:Qty: 2 on 09/08/2020 by Maggy Swartz MD at [facility] Spine N/A: Spine Lumbar [employer] MINIMALLY INVASIVE T [id number] / / [id number] Screw Bone Spine Cd Hzn Solera 45mm Ti Cocr 5.5mm Ma Nonst - [id number] Implanted:Qty: 4 on 09/08/2020 by Maggy Swartz MD at [facility] Spine N/A: Spine Lumbar [employer] MINIMALLY INVASIVE T [id number] / / [id number] Screw Set Ti Spine Brk Off Cd Hzn Nonst 5.5 Mm Ashok - [id number] Implanted:Qty: 6 on 09/08/2020 by Maggy Swartz MD at [facility] Spine N/A: Spine Lumbar [employer] MINIMALLY INVASIVE T [id number] / / [id number] Filler Bone Void 10cc Dbx Algrf Frzdr Putty - [id number] Implanted:Qty: 1 on 09/08/2020 by Maggy Swartz MD at [facility] Void Filler N/A: Spine Lumbar [employer] FOU 03/19/2022 [id number] / [id number] / [id number] Filler Bone Void 10cc Dbx Algrf Frzdr Putty - [id number] Implanted:Qty: 1 on 09/08/2020 by Maggy Swartz MD at [facility] Void Filler N/A: Spine Lumbar [employer]OU 12/13/2021 [id number] / [id number] / [id number] Filler Bone Void 10cc Dbx Algrf Frzdr Putty - [id number] Implanted:Qty: 1 on 09/08/2020 by Maggy Swartz MD at [facility] Void Filler N/A: Spine Lumbar [employer] FOU 03/19/2022 [id number] / [id number] / Advance Directives * Full Code (Latest Code Status on File) Date Activated Date Inactivated Comments 09/08/2020 8:09 PM * Full Code Date Activated Date Inactivated Comments 09/08/2020 9:46 AM 09/08/2020 8:09 PM * Full Code Date Activated Date Inactivated Comments 06/25/2020 3:59 PM 09/08/2020 9:10 AM * Full Code Date Activated Date Inactivated Comments 06/25/2020 8:24 AM 06/25/2020 3:59 PM Care Teams Signs Cleaner Relationship Specialty Start Date End Date PoHayden MD [address] [place] [address] Dr Vo [address] [place] [address] [place] [address] PCP - General Internal Medicine 05/06/20 Maggy Swartz MD [address] [place] [address] Surgery, Neurosurgery 08/20/20
--- OUTSIDE RECORDS SUMMARY | 2025-02-12 17:26 | XMS_ITS | Encounter Summary ---
Author Organization [facility] Address [address] [place] [address] Care Team Providers Care Vacuum Filter Operator Name Role Phone Hayden Man MD Primary Care Provider [phone] Maggy Swartz MD Unavailable [phone] Encounter Details Date Type Department Care Team (Late st Contact Info) Description 02/02/2021 Scanned Document [facility] Neurosurgery [place] [address] [address] Maggy Swartz MD [address] [address] Social History Tobacco Use Types Packs/Day Years [...] on filedocumented in this encounter Care Teams Vacuum Filter Operator Relationship Specialty Start Date End Date Hayden Man MD [address] [place] [address] [place] [address] PCP - General Internal Medicine 05/06/20 Maggy Swartz MD [address] [place] [address] Surgery, Neurosurgery 08/20/20 documented as of this encounter
--- OUTSIDE RECORDS SUMMARY | 2025-02-12 17:26 | XMS_ITS | Encounter Summary ---
Author Organization [facility] Address [address] [place] [address] Care Team Providers Care Lab Rn Name Role Phone Hayden Man MD Primary Care Provider Maggy Swartz MD Unavailable [phone] Reason for Visit * Reason Comments Other needs crea ordered Encounter Details Date Type Department Care Team (Late st Contact Info) Description 12/12/2020 Telephone [facility] Urologic Surgery [address] [phone] Hardik Reese MD [address] [place] [address] Other (needs crea ordered) Social History [...] PO contrast. I advised I would contact [facility] as we do notuse PO contrast for the CT scan of the abdomen. She is getting her labs done today. * Telephone Encounter - Jacoby East LPN - 12/12/2020 2:42 PM EST Order for creatinine to be drawn at [facility]. documented in this encounter Plan of Treatment Not on file documented as of this encounter Visit Diagnoses Not on filedocumented in this encounter Care Teams Lab Rn Relationship Specialty Start Date End Date Po, Hayden Serrano MD [address] [place] [address] Dr Vo [address] [place] [address] PCP - General Internal Medicine 05/06/20 Maggy Swartz MD [address] [place] [address] Surgery, Neurosurgery 08/20/20 documented as of this encounter
--- OUTSIDE RECORDS SUMMARY | 2025-02-12 17:26 | XMS_ITS | Encounter Summary ---
Author Organization [facility] Address [address] [place] [address] Care Team Providers Care Application Integration Architect Name Role Phone Hayden Man MD Primary Care Provider [phone] Maggy Swartz MD Unavailable [phone] Encounter Details Date Type Department Care Team (Late st Contact Info) Description 03/24/2021 Scanned Document [facility] Neurosurgery [place] [address] [phone] Bibi Maza PA Valid Address Needed Social [...] on filedocumented in this encounter Care Teams Application Integration Architect Relationship Specialty Start Date End Date Hayden Man MD [address] [place] [address] Dr [address] [address] PCP - General Internal Medicine 05/06/20 Maggy Swartz MD [address] [place] [address] Surgery, Neurosurgery 08/20/20 documented as of this encounter
--- OUTSIDE RECORDS SUMMARY | 2025-02-12 17:26 | XMS_ITS | Encounter Summary ---
Author Organization [facility] Address [address] [place] [address] Care Team Providers Care Rehab Care Assistant Name Role Phone Hayden Man MD Primary Care Provider [phone] Maggy Swartz MD Unavailable [phone] Reason for Visit * Reason Comments Other Encounter Details Date Type Department Care Team (Late st Contact Info) Description 04/03/2021 Telephone [facility] Urologic Surgery [address] [phone] Hardik Reese MD [address] [place] [address] Other Social History Tobacco Use Types [...] Ct abdomen with and without contrast to [facility]. documented in this encounter Plan of Treatment Not on file documented as of this encounter Visit Diagnoses Not on filedocumented in this encounter Care Teams Rehab Care Assistant Relationship Specialty Start Date End Date Hayden Man MD [address] [place] [address] [facility] [address] [place] [address] PCP - General Internal Medicine 05/06/20 Maggy Swartz MD [address] [place] [address] Surgery, Neurosurgery 08/20/20 documented as of this encounter
--- OUTSIDE RECORDS SUMMARY | 2025-02-12 17:26 | XMS_ITS | Encounter Summary ---
Author Organization [facility] Address [address] [place] [address] Care Team Providers Care Table Tender Name Role Phone Hayden Man MD Primary Care Provider [phone] Maggy Swartz MD Unavailable [phone] Encounter Details Date Type Department Care Team (Late st Contact Info) Description 12/16/2020 Scanned Document [facility] Neurosurgery [address] [place] [address] Bibi Maza PA Valid Address Needed Social [...] on filedocumented in this encounter Care Teams Table Tender Relationship Specialty Start Date End Date Hayden Man MD [address] [place] [address] [place] [address] PCP - General Internal Medicine 05/06/20 Maggy Swartz MD [address] [place] [address] Surgery, Neurosurgery 08/20/20 documented as of this encounter
--- NOTE | 2025-02-13 10:27 | HO.ANESPROP2 ---
HPI - Anesthesia Eval Consult details Narrative: 64yo F for Left Radius Distal Fracture ORIF PMFSH Active Problems Active Problems: All Active Problems Distal radius fracture, left (Acute) Left hip pain (Acute) Left ankle pain (Acute) Recurrent falls (Acute) Olecranon bursitis, right elbow (Acute) Melanoma (Acute) Vasovagal episode (Acute) Syncope (Acute) Pain of left lower extremity (Acute) Common peroneal nerve dysfunction of left lower extremity (Acute) Common peroneal nerve dysfunction (Acute) Left peroneal nerve lesion (Acute) Implantable intrathecal infusion pump present (Acute) Overweight (BMI 25.0-29.9) (Acute) Onychomycosis (Acute) Osteoarthritis of left knee (Acute) Hypersomnia (Acute) Tinea versicolor (Acute) Tinea (Acute) Generalized anxiety disorder (Acute) Carpal tunnel syndrome (Acute) Chronic radicular cervical pain (Acute) Bilateral hand numbness (Acute) Skin lesion of right leg (Acute) Anemia (Acute) Peripheral neuropathy (Acute) Cervical cancer screening (Acute) Opioid use disorder (Acute) Chronic pain syndrome (Acute) Postlaminectomy syndrome (Acute) Complex regional pain syndrome i of left lower limb (Acute) Renal lesion (Acute) Primary osteoarthritis of left knee (Acute) Tobacco abuse (Acute) H/O lumbar discectomy (Acute) Hypothyroidism (Acute) Past Medical History Medical History Breast cancer screening by mammogram Generalized anxiety disorder Left leg paresthesias Bacterial vaginosis Anxiety Opioid use disorder Chronic pain syndrome Postlaminectomy syndrome Complex regional pain syndrome i of left lower limb Primary osteoarthritis of left knee Tobacco abuse Renal lesion Closed left ankle fracture Cervical disc herniation Hypothyroidism Family History Family History Father No problems noted. Mother Stroke Paternal Aunt Breast cancer Family history of problems with anesthesia: No Surgical History Surgical History Hx of cervical discectomy H/O colonoscopy H/O lumbar discectomy Spinal stenosis History of left knee surgery Left ACL tear History of Problems with Anesthesia: No Social History Social History (Updated 02/13/25 @ 08:27 by RISHABH Alcala) Housing: House Are you a primary hospice care consultant to a significant other at home: No Do you presently have visiting nurse or other home services: No Alcohol intake: current Alcohol intake frequency: holidays/special occasions only Alcohol type: wine Patient Tobacco Use Status: Former Tobacco user Tobacco use type: Cigarette Years Smoked: 30 e-Cigarette/Vaping Use: Currently Using Second Hand Smoke Exposure: Yes service: No Current occupational status: unemployed and disabled 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 Cognitive needs: No Hearing needs: No Vision needs: No Meds Allergies Allergy/AdvReac Type Severity Reaction Status Date / Time No Known Allergies Allergy Verified 02/13/25 08:26 [No Known Allergies*] Home Medications ?Medication ?Instructions ?Recorded ?Confirmed ?Last Taken ?Type magnesium oxide 400 mg PO DAILY 12/30/20 01/22/25 Unknown History triamcinolone acetonide 0.025 % appl topical 05/04/23 01/22/25 Unknown History topical cream aspirin 81 mg tablet,delayed 81 mg PO DAILY 01/22/25 01/22/25 Unknown History release (Adult Aspirin Regimen) Exam Pertinent Lab Results Pertinent Lab Results: Laboratory Tests 01/12/25 17:05 WBC 7.4 Hgb 12.7 Hct 38.4 Plt Count 308 Sodium 137 Potassium 4.1 Chloride 102 Carbon Dioxide 24 BUN 12 Creatinine 0.79 Narrative Narrative: EKG 12/2024 Vent. Rate : 64 BPM Atrial Rate : 64 BPM P-R Int : 146 ms QRS Dur : 82 ms QT Int : 396 ms P-R-T Axes : 58 43 50 degrees QTcB Int : 408 ms Normal sinus rhythm Normal ECG No previous ECGs available Assessment and Plan Assessment Anesthesia Assessment: Chart Reviewed Final Anesthetic Review Family History of Problems with Anesthesia: No History of Problems with Anesthesia: No
--- NOTE | ~2025-02-14 | FL_ITS ---
EXAMINATION: FL GUIDANCE ONLY HISTORY: left distal radius ORIF COMPARISON: Comparison is made with the prior examination of the left wrist dated 02/09/2025. TECHNIQUE: Fluoroscopy time: 18 seconds. Cumulative Dose: 0.5849 mGy. DAP: 0.0353 mGym2 Images: 8. FINDINGS: Images demonstrate internal fixation of the previously seen fracture of the distal radius with a sideplate and multiple orthopedic screws. FL/FL guidance in OR IMPRESSION: Fluoroscopy during procedure. Please see procedure report for additional information. Electronically signed by: Tai Russell MD 02/14/2025 12:49 PM EDT
[2025-02-14 09:43] VITALS: BMI 27.8
[2025-02-14] MEDS: Lactated Ringers 1,000 ML 100 ML IVCONT (09:50)
[2025-02-14 09:54] VITALS: BP 103/65; PULSE 78; RESP 18; TEMP 36.7; O2SAT 97
--- NOTE | 2025-02-14 10:18 | MHC.SHP ---
Pre-Procedural Eval Section A - 24 Hr Update-Section A only Date of Service: 02/14/25 The patient is an INPATIENT: No Changes since office visit: No Cold of Flu in the past 2 weeks, No New Medical Problems, No Changes in Medication and No Patient answered all questions The patient has been examined within 24 hours of the surgical procedure. The History & Physical has been completed within 30 days and I have reviewed it.: Yes Section B - Complete if H&P > 30 days Chief Complaint: Unspecified fracture of the lower end of left radi Allergies: Allergies Allergy/AdvReac Type Severity Reaction Status Date / Time No Known Allergies Allergy Verified 02/14/25 09:46 [No Known Allergies*] Plan I have reviewed the history and physical and performed a pertinent physical examination on my patient. No changes have occurred unless specified. Time Spent With Patient Time: Total time managing care of this patient today ____ minutes.
--- NOTE | 2025-02-14 10:20 | W.PM.OPN ---
Operative Note Operative Note Date of Service: 02/14/25 Narrative: Operative Note Narrative: Preop diagnosis: 1. Left Distal radius fracture Postop diagnosis: Same Procedure: 1. Left Distal radius fracture open reduction internal fixation, extra-articular Surgeon: Sarahy Ramirez MD Director Staffing: Ezequiel CARDENAS Anesthesia: General anesthesia plus regional block Findings: Implants: A 3 hole narrow Accu Med volar locking plate, with 4x 2.3 mm locking pegs/screws, and 3 3.5 mm cortical screws Tourniquet time: 40 minutes EBL: 5.0 ml Specimen: None Drains: None Complications: None Disposition: Brought to the recovery room in stable condition Plan: Follow-up in 10-14 days for wound check, suture removal and postop radiographs The patient will be placed in either a short-arm cast or a volar wrist splint. Encouraged no lifting of anything heavier than a cell phone. Please encourage active and passive range of motion of the digits. Follow-up at 4-5 weeks postop for repeat radiographs. Indications: The patient is a 64 year old woman with left distal radius fracture . The risks and benefits of operative treatment, including but not limited to risk of damage to blood vessels, nerves, tendons, infection, recurrence, persistent pain or numbness, incomplete resolution of preoperative symptoms, or need for further surgery were discussed with the patient and they wished to proceed with surgery. Procedure: Once consent was obtained patient was brought back to the operating suite and placed in the operating table in a supine position. A regional block was performed by the anesthesia team. Perioperative antibiotics and anesthesia was administered by the anesthesia team. A tourniquet was applied to the proximal aspect of the left upper extremity and the limb was prepped and draped in a standard surgical fashion. The limb was elevated exsanguinated with Esmarch bandage and the tourniquet inflated to 250 mm of mercury for a total tourniquet time of 40 minutes. The FluoroScan was used throughout the case to assess our reduction, and facilitate implant placement. A gentle closed reduction was 1st performed on the patient's left distal radius fracture. Was assessed radiographically before proceeding with the reduction internal fixation. I then made an 8 cm longitudinal incision over the distal aspect of the flexor carpi radialis tendon. The incision was made through the skin to the subcutaneous tissue using a 15. Blade. Then carefully dissected down to flexor carpi radialis tendon she tenotomy scissors. The FCR tendon sheath was then incised longitudinally using tenotomy scissors under direct visualization. The FCR tendon was then retracted ulnarly. I then made a longitudinal incision in the volar forearm fascia through the floor of FCR tendon sheath using tenotomy scissors under direct visualization. I identified the interval between the radial artery and the flexor tendons. This interval was developed further with my index finger, releasing some of the muscular fibers of the flexor pollicis longus. A dull weatlander retractor was then placed. I then created an ulnarly based flap of the pronator quadratus by releasing the radial and distal edges using a 15. Blade. A Rangel elevator was used to elevate the pronator quadratus from the volar surface of the distal radius. This then revealed to us our distal radius fracture. An open reduction was then performed on our distal radius fracture. I then placed a short narrow 3 hole Accu Med volar locking plate on the volar surface of the distal radius. I placed a single K-wire through the distal aspect of the plate and into the distal radius. This was assessed using fluoroscopic images. I was satisfied with the placement of our plate. I then placed 4x 2.3 mm locking screws/pegs in the distal aspect of the plate and distal radius by 1st drilling bicortically with a 2.0 mm drill bit, measuring with a depth gauge, and placing the appropriate length locking screws/pegs. The placement of our plate and screws was then assessed again using fluoroscopic images. The once satisfied with the placement of the volar locking plate and screws on the distal aspect of the distal radius, the plate was then reduced to the shaft of the radius. I then placed 3 X 3.5 mm cortical screws to the proximal aspect of the plate and into the shaft of the radius. This was done by 1st drilling bicortically with a 2.8 mm drill bit, measuring with a depth gauge, and placing the appropriate length screw. Final radiographs were then obtained. The DRUJ was assessed and found to be stable on exam. I was satisfied with our reduction and placement of all implants. At this point the wound was irrigated with normal saline. The pronator quadratus was reduced back over the volar locking plate using some 3-0 Vicryl suture material. The tourniquet was then deflated and hemostasis was obtained with a brief period of local pressure and bipolar monopolar electrocautery. The subcutaneous layer was then reapproximated using some 4-0 Vicryl suture, and the skin edges were reapproximated using some 5 0 Prolene suture. The wound was then infiltrated with some 1% lidocaine with epinephrine postop pain control. A sterile dressing and a short dorsal splint allowing for active flexion and extension of the digits was applied. The patient appears to have tolerated the procedure well and with no complications. All digits were well vascularized conclusion of the case.
[2025-02-14] MEDS: Acetaminophen 1,000 MG/100 ML PIGGYBACK 400 MG IV (10:39)
[2025-02-14] MEDS: ceFAZolin Sodium/Dextrose,Iso 2 GM/50 ML PIGGYBACK IV (10:47)
[2025-02-14 12:08] VITALS: BP 128/73; PULSE 70; RESP 16; TEMP 36.7; O2SAT 100
[2025-02-14 12:13] VITALS: BP 126/54; PULSE 74; RESP 16; O2SAT 96
[2025-02-14 12:18] VITALS: BP 119/78; PULSE 73; RESP 18; O2SAT 95
[2025-02-14 12:23] VITALS: BP 123/77; PULSE 75; RESP 18; O2SAT 97
[2025-02-14 12:43] VITALS: BP 131/71; PULSE 72; RESP 18; TEMP 36.4; O2SAT 98
== END 2025-02-14 12:55 | disposition home or self-care (01) ==
PROVIDERS: PCP Internal Medicine; Visit Provider Orthopaedic Surgery
PROC: (CPT 25607; principal; 2025-02-14 10:30)
DX: S52.532A Colles' fracture of left radius, initial encounter for closed fracture (principal); M25.532 Pain in left wrist; M23.52 Chronic instability of knee, left knee; M17.12 Unilateral primary osteoarthritis, left knee; G90.522 Complex regional pain syndrome I of left lower limb; Z56.0 Unemployment, unspecified; R29.6 Repeated falls; W18.39XA Other fall on same level, initial encounter; Y93.9 Activity, unspecified; Y99.8 Other external cause status; Y92.9 Unspecified place or not applicable; F41.1 Generalized anxiety disorder; F11.29 Opioid dependence with unspecified opioid-induced disorder; Z79.82 Long term (current) use of aspirin; Z79.899 Other long term (current) drug therapy; F17.291 Nicotine dependence, other tobacco product, in remission
CPT/HCPCS: 25607; C1713; J0131; J0665; J0690; J1100; J2003; J2004; J2250; J2371; J2405; J2704

== ENCOUNTER → 2025-02-14 09:25 | Outpatient (BNV) | payer OTHER, MEDICARE, SELFPAY | PROVIDERS: PCP Internal Medicine; Visit Provider Orthopaedic Surgery | DX: S52.552A Other extraarticular fracture of lower end of left radius, initial encounter for closed fracture (principal) | CPT/HCPCS: 25607 ==

== ENCOUNTER 2025-02-26 09:57 | Outpatient (REF) | payer MEDICARE, MEDICAID, SELFPAY ==
--- NOTE | ~2025-02-26 | XR_ITS ---
EXAMINATION: XR WRIST, LEFT CLINICAL INFORMATION: M25.532 - Pain in left wrist COMPARISON: 02/09/2025. TECHNIQUE: PA, lateral, and oblique views of the left wrist. FINDINGS: Diffusely seen comminuted possibly intra-articular distal radial fracture has been fixated with volar plate and screws. There has been zoroastrianism of anatomic alignment. No hardware complication evident. Hardware appears intact and well seated. Fracture lines are still well visualized without definite bony healing evident. No new or acute fractures seen. There is persistent soft tissue swelling. XR/XR wrist LT min 3V IMPRESSION: Fixated distal radial fracture with zoroastrianism of anatomic alignment. No complication evident. Electronically signed by: Everton Arora MD 02/28/2025 01:28 PM EDT
--- OUTSIDE RECORDS SUMMARY | 2025-02-27 10:57 | XMS_ITS | Encounter Summary ---
Author Organization [address] [address] Care Team Providers Care Sheet Metal Former Name Role Phone Hayden Man MD Primary Care Provider [phone] Maggy Swartz MD Unavailable [phone] Encounter Details Date Type Department Care Team (Late st Contact Info) Description 09/17/2020 Scanned Document [facility] Neurosurgery [place] 85 [facility] [address] [place] [address] Maggy Swartz MD 85 [facility] [place] [address] [place] [address] Social History Tobacco Use Types Packs/Day Years [...] on filedocumented in this encounter Care Teams Sheet Metal Former Relationship Specialty Start Date End Date Hayden Man MD [address] [place] [address] Dr [address] [place] [address] PCP - General Internal Medicine 05/06/20 Maggy Swartz MD [address] [place] [address] Surgery, Neurosurgery 08/20/20 documented as of this encounter
--- OUTSIDE RECORDS SUMMARY | 2025-02-27 10:57 | XMS_ITS | Encounter Summary ---
Author Organization [facility] Address [address] [place] [address] Care Team Providers Care Card Lacer Jacquard Name Role Phone Hayden Man MD Primary Care Provider [phone] Maggy Swartz MD Unavailable [phone] Encounter Details Date Type Department Care Team (Late st Contact Info) Description 03/24/2021 Scanned Document [address] [place] [address] [address] Bibi Maza PA Valid Address [...] on filedocumented in this encounter Care Teams Card Lacer Jacquard Relationship Specialty Start Date End Date Hayden Man MD [address] [place] [address] [place] [address] PCP - General Internal Medicine 05/06/20 Maggy Swartz MD [address] [place] [address] Surgery, Neurosurgery 08/20/20 documented as of this encounter
--- OUTSIDE RECORDS SUMMARY | 2025-02-27 10:57 | XMS_ITS | Encounter Summary ---
Author Organization [facility] Address [address] [place] [address] Care Team Providers Care Carbon Capture Power Plant Operator Name Role Phone Hayden Man MD Primary Care Provider [phone] Maggy Swartz MD Unavailable [phone] Encounter Details Date Type Department Care Team (Late st Contact Info) Description 12/16/2020 Scanned Document [facility] Neurosurgery [address] [place] [address] Bibi Maza PA Valid Address Needed Social [...] on filedocumented in this encounter Care Teams Carbon Capture Power Plant Operator Relationship Specialty Start Date End Date Hayden Man MD [address] [place] [address] [place] [address] PCP - General Internal Medicine 05/06/20 Maggy Swartz MD [address] [place] [address] Surgery, Neurosurgery 08/20/20 documented as of this encounter
--- OUTSIDE RECORDS SUMMARY | 2025-02-27 10:57 | XMS_ITS | Encounter Summary ---
Author Organization Formerly [facility] Address [address] [place] [address] Care Team Providers Care Public Health Worker Name Role Phone Hayden Man MD Primary Care Provider [phone] Maggy Swartz MD Unavailable [phone] Encounter Details Date Type Department Care Team (Late st Contact Info) Description 12/16/2020 Scanned Document [facility] Neurosurgery [address] [place] [address] Bibi Maza PA Valid Address Needed Social [...] on filedocumented in this encounter Care Teams Public Health Worker Relationship Specialty Start Date End Date Hayden Man MD [address] [place] [address] [place] [address] PCP - General Internal Medicine 05/06/20 Magyg Swartz MD [address] [place] [address] Surgery, Neurosurgery 08/20/20 documented as of this encounter
--- OUTSIDE RECORDS SUMMARY | 2025-02-27 10:57 | XMS_ITS | Encounter Summary ---
Author Organization [facility] Address [address] [place] [address] Care Team Providers Care Visitor Service Assistant Name Role Phone Hayden Man MD Primary Care Provider [phone] Maggy Swartz MD Unavailable [phone] Encounter Details Date Type Department Care Team (Late st Contact Info) Description 02/02/2021 Scanned Document [facility] Neurosurgery [place] [address] [address] Maggy Swartz MD [address] [address] Social History Tobacco Use Types Packs/Day Years [...] on filedocumented in this encounter Care Teams Visitor Service Assistant Relationship Specialty Start Date End Date Hayden Man MD [address] [place] [address] [place] [address] PCP - General Internal Medicine 05/06/20 Maggy Swartz MD [address] [place] [address] Surgery, Neurosurgery 08/20/20 documented as of this encounter
--- OUTSIDE RECORDS SUMMARY | 2025-02-27 10:57 | XMS_ITS | Encounter Summary ---
Author Organization Formerly [facility] Address [address] [place] [address] Care Team Providers Care Deep Fat Fry Cook Name Role Phone Hayden Man MD Primary Care Provider [phone] Maggy Swartz MD Unavailable [phone] Encounter Details Date Type Department Care Team (Late st Contact Info) Description 07/22/2021 Scanned Document [facility] Neurosurgery [place] [address] [address] Maggy Swartz MD [address] [address] Social History Tobacco Use Types Packs/Day Years [...] on filedocumented in this encounter Care Teams Deep Fat Fry Cook Relationship Specialty Start Date End Date Hayden Man MD [address] [place] [address] [place] [address] PCP - General Internal Medicine 05/06/20 Maggy Swartz MD [address] [place] [address] Surgery, Neurosurgery 08/20/20 documented as of this encounter
--- OUTSIDE RECORDS SUMMARY | 2025-02-27 10:57 | XMS_ITS | Encounter Summary ---
Author Organization Formerly [facility] Address [address] [place] [address] Care Team Providers Care Measurement And Sensing Technician Name Role Phone Hayden Man MD Primary Care Provider [phone] Maggy Swartz MD Unavailable [phone] Reason for Visit * Reason Comments Other Encounter Details Date Type Department Care Team (Late st Contact Info) Description 04/03/2021 Telephone [facility] Urologic Surgery [address] [phone] Hardik Reese MD [address] [place] [address] Other Social History Tobacco Use Types [...] Ct abdomen with and without contrast to [facility]. documented in this encounter Plan of Treatment Not on file documented as of this encounter Visit Diagnoses Not on filedocumented in this encounter Care Teams Measurement And Sensing Technician Relationship Specialty Start Date End Date Hayden Man MD [address] [place] [address] [address] [place] [address] PCP - General Internal Medicine 05/06/20 Maggy Swartz MD [address] [place] [address] Surgery, Neurosurgery 08/20/20 documented as of this encounter
--- OUTSIDE RECORDS SUMMARY | 2025-02-27 10:57 | XMS_ITS | Encounter Summary ---
Author Organization [facility] Address [address] [place] [address] Care Team Providers Care Rehab Tech Name Role Phone Hayden Man MD Primary Care Provider [phone] Maggy Swartz MD Unavailable [phone] Reason for Visit * Reason Comments Medication Refill Encounter Details Date Type Department Care Team (Late st Contact Info) Description 09/27/2020 Refill [facility] Neurosurgery [address] [place] [address] Bibi Maza PA Valid Address Needed Lumbar [...] myelopathy documented in this encounter Care Teams Rehab Tech Relationship Specialty Start Date End Date Hayden Man MD [address] [place] [address] [address] [place] [address] PCP - General Internal Medicine 05/06/20 Maggy Swartz MD [address] [place] [address] Surgery, Neurosurgery 08/20/20 documented as of this encounter
--- OUTSIDE RECORDS SUMMARY | 2025-02-27 10:57 | XMS_ITS | Encounter Summary ---
Author Organization [facility] Address [address] [place] [address] Care Team Providers Care Public Housing Interviewer Name Role Phone Hayden Man MD Primary Care Provider [phone] Maggy Swartz MD Unavailable [phone] Encounter Details Date Type Department Care Team (Late st Contact Info) Description 02/02/2021 Scanned Document [facility] Neurosurgery [place] [address] [address] Maggy Swartz MD [address] [address] Social History Tobacco Use Types Packs/Day Years [...] filedocumented in this encounter Care Teams Public Housing Interviewer Relationship Specialty Start Date End Date Hayden Man MD [address] [place] [address] [place] [address] PCP - General Internal Medicine 05/06/20 Maggy Swartz MD [address] [place] [address] Surgery, Neurosurgery 08/20/20 documented as of this encounter
--- OUTSIDE RECORDS SUMMARY | 2025-02-27 10:57 | XMS_ITS | Encounter Summary ---
Author Organization [facility] Address [address] [place] [address] Care Team Providers Care Roof Bolter Helper Name Role Phone Hayden Man MD Primary Care Provider [phone] Maggy Swartz MD Unavailable [phone] Reason for Visit * Reason Comments Other needs crea ordered Encounter Details Date Type Department Care Team (Late st Contact Info) Description 12/12/2020 Telephone [facility] Urologic Surgery [address] [phone] Hardik Reese MD [address] [place] [address] Other (needs crea ordered) Social History [...] PO contrast. I advised I would contact [facility] as we do notuse PO contrast for the CT scan of the abdomen. She is getting her labs done today. * Telephone Encounter - Jacoby East LPN - 12/12/2020 2:42 PM EST Order for creatinine to be drawn at [facility]. documented in this encounter Plan of Treatment Not on file documented as of this encounter Visit Diagnoses Not on filedocumented in this encounter Care Teams Roof Bolter Helper Relationship Specialty Start Date End Date Po, Hayden Serrano MD [address] [place] [address] Dr Vo [address] [place] [address] PCP - General Internal Medicine 05/06/20 Maggy Swartz MD [address] [place] [address] Surgery, Neurosurgery 08/20/20 documented as of this encounter
--- OUTSIDE RECORDS SUMMARY | 2025-02-27 10:57 | XMS_ITS | Encounter Summary ---
Author Organization [facility] Address [address] [place] [address] Care Team Providers Care Flour Blender Name Role Phone Hayden Man MD Primary Care Provider [phone] Maggy Swartz MD Unavailable [phone] Encounter Details Date Type Department Care Team (Late st Contact Info) Description 09/11/[address] [facility] Neurosurgery [place] [address] [address] Maggy Swartz MD [address] [address] Social History Tobacco Use Types Packs/Day Years [...] on filedocumented in this encounter Care Teams Flour Blender Relationship Specialty Start Date End Date Hayden Man MD [address] [place] [address] [place] [address] PCP - General Internal Medicine 05/06/20 Maggy Swartz MD [address] [place] [address] Surgery, Neurosurgery 08/20/20 documented as of this encounter
--- OUTSIDE RECORDS SUMMARY | 2025-02-27 10:57 | XMS_ITS | Encounter Summary ---
Author Organization [facility] Address [address] [place] [address] Care Team Providers Care Inspector Printed Circuit Boards Name Role Phone Hayden Man MD Primary Care Provider [phone] Maggy Swartz MD Unavailable [phone] Encounter Details Date Type Department Care Team (Late st Contact Info) Description 12/16/2020 Scanned Document [facility] Neurosurgery [address] [place] [address] Bibi Maza PA Valid Address Needed Social [...] on filedocumented in this encounter Care Teams Inspector Printed Circuit Boards Relationship Specialty Start Date End Date Hayden Man MD [address] [place] [address] [place] [address] PCP - General Internal Medicine 05/06/20 Maggy Swartz MD [address] [place] [address] Surgery, Neurosurgery 08/20/20 documented as of this encounter
--- OUTSIDE RECORDS SUMMARY | 2025-02-27 10:57 | XMS_ITS | Encounter Summary ---
Author Organization [address] [address] Care Team Providers Care Mobile Lounge Driver Or Operator Name Role Phone Hayden Man MD Primary Care Provider [phone] Maggy Swartz MD Unavailable [phone] Encounter Details Date Type Department Care Team (Late st Contact Info) Description 08/22/2020 Scanned Document [facility] Neurosurgery [place] 85 [facility] [address] [place] [address] Maggy Swartz MD 85 [facility] [place] [address] [place] [address] Social History Tobacco Use Types Packs/Day Years [...] on filedocumented in this encounter Care Teams Mobile Lounge Driver Or Operator Relationship Specialty Start Date End Date Hayden Man MD [address] [place] [address] Dr Vo [address] [place] [address] PCP - General Internal Medicine 05/06/20 Maggy Swartz MD [address] [place] [address] Surgery, Neurosurgery 08/20/20 documented as of this encounter
--- OUTSIDE RECORDS SUMMARY | 2025-02-27 10:58 | XMS_ITS | Clinical Summary ---
Author Organization [facility] Address [address] [place] [address] Care Team Providers Care Oil Dispatcher Name Role Phone Hayden Man MD Primary Care Provider [phone] Maggy Swartz MD Unavailable [phone] Allergies No known active allergies Medications [...] this topic Medical Devices Implanted Type Area Photostat Operator Helper Device Identifier Shelf Expiration Date Model / Serial / Lot [id number] Spacer Spinal [id number] Cpstn Peek Ptc Lmbr Intrbd Fs Sterl - [id number] Implanted:Qty: 1 on 09/08/2020 by Maggy Sawrtz MD at [facility] Cage N/A: Spine Lumbar [employer] 10/20/2026 [id number] / / [id number] Ashok Spinal 70mm 5.5mm Cd Hzn Crv Ti Cp4 Nonst - [id number] Implanted:Qty: 2 on 09/08/2020 by Maggy Swartz MD at [facility] Nail/Ashok N/A: Spine Lumbar [employer] [id number] / / [id number] Screw Bone Spine Solera Cd Hzn 40mm Cocr 5.5mm Ma Nonst 5.5 - [id number] Implanted:Qty: 2 on 09/08/2020 by Maggy Swartz MD at [facility] Spine N/A: Spine Lumbar [employer] [id number] / / [id number] Screw Bone Spine Cd Hzn Solera 45mm Ti Cocr 5.5mm Ma Nonst - [id number] Implanted:Qty: 4 on 09/08/2020 by Maggy Swartz MD at [facility] Spine N/A: Spine Lumbar [employer] [id number] / / [id number] Screw Set Ti Spine Brk Off Cd Hzn Nonst 5.5 Mm Ashok - [id number] Implanted:Qty: 6 on 09/08/2020 by Maggy Swartz MD at [facility] Spine N/A: Spine Lumbar [employer] [id number] / / [id number] Filler Bone Void 10cc Dbx Algrf Frzdr Putty - [id number] Implanted:Qty: 1 on 09/08/2020 by Maggy Swartz MD at [facility] Void Filler N/A: Spine Lumbar [employer] 03/19/2022 [id number] / [id number] / [id number] Filler Bone Void 10cc Dbx Algrf Frzdr Putty - [id number] Implanted:Qty: 1 on 09/08/2020 by Maggy Swartz MD at [facility] Void Filler N/A: Spine Lumbar [employer] 12/13/2021 [id number] / [id number] Filler Bone Void 10cc Dbx Algrf Frzdr Putty - [id number] Implanted:Qty: 1 on 09/08/2020 by Maggy Swartz MD at [facility] Void Filler N/A: Spine Lumbar [employer] 03/19/2022 [id number] / [id number] / Insurance [facility] Advance Directives * Full Code (Latest Code Status on File) Date Activated Date Inactivated Comments 09/08/2020 8:09 PM * Full Code Date Activated Date Inactivated Comments 09/08/2020 9:46 AM 09/08/2020 8:09 PM * Full Code Date Activated Date Inactivated Comments 06/25/2020 3:59 PM 09/08/2020 9:10 AM * Full Code Date Activated Date Inactivated Comments 06/25/2020 8:24 AM 06/25/2020 3:59 PM Care Teams Oil Dispatcher Relationship Specialty Start Date End Date Hayden Man MD [address] [place] [address] Dr Vo [address] [place] [address] PCP - General Internal Medicine 05/06/20 Maggy Swartz MD [address] [place] [address] Surgery, Neurosurgery 08/20/20
== END 2025-02-26 09:58 | disposition home or self-care (01) ==
LOC: HO.HOSX 09:57
PROVIDERS: Visit Provider Orthopaedic Surgery
DX: M25.532 Pain in left wrist (principal); S52.532D Colles' fracture of left radius, subsequent encounter for closed fracture with routine healing; Z98.890 Other specified postprocedural states; R29.6 Repeated falls
CPT/HCPCS: 73110; 99212

== ENCOUNTER 2025-02-26 15:35 | Outpatient (AMB) | payer MEDICARE, MEDICAID, SELFPAY ==
--- NOTE | 2025-02-26 16:09 | A.OFFVIS_ITS ---
Intake Visit Reasons: PO LT distal radius ORIF 02/14/25 AR Allergies No Known Allergies [No Known Allergies*] Allergy (Verified 02/14/25 09:46) HPI HPI PO LT distal radius ORIF 02/14/25 AR: Details: Claudia is a 64 year old right hand dominant woman who returns S/P left distal radius ORIF, DOS: 02/14/25. S/P fall, DOI: 02/09/25. She says she is doing well overall. She has some mild pain in her wrist and about her thumb, but says this is tolerable. She has been working on gentle ROM exercises at home. She is happy with the results of her surgery. She denies any numbness or tingling. She says she fell due to her left leg giving way. 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 She sees Pain Management for this. She denies smoking but says she vapes. 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 [facility] Medical History Breast cancer screening by mammogram Generalized anxiety disorder Left leg paresthesias Bacterial vaginosis Anxiety Opioid use disorder Chronic pain syndrome Postlaminectomy syndrome Complex regional pain syndrome i of left lower limb Primary osteoarthritis of left knee Tobacco abuse Renal lesion Closed left ankle fracture Cervical disc herniation Hypothyroidism Surgical History Hx of cervical discectomy H/O colonoscopy H/O lumbar discectomy Spinal stenosis History of left knee surgery Left ACL tear Family History Father No problems noted. 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 Sutures removed and Steri-Strips applied She can make a fist and extend all her digits ~65 degrees pronation ~60 degrees supination Fracture site is non-tender Sensation is intact Cap refill is brisk Radiographs: 3 views of the left wrist were taken and viewed by me today in clinic. They show a distal radius fracture with satisfactory fracture alignment and position of all implants Psych Appearance: grossly normal Affect: normal affect Attitude: cooperative Assessment & Plan Assessment & Plan (1) Distal radius fracture, left: Code(s): S52.502A - Unspecified fracture of the lower end of left radius, initial encounter for closed fracture Category: Medical Qualifiers: Encounter type: initial encounter Fracture morphology: Colles' Fracture type: closed Qualified Code(s): S52.532A - Colles' fracture of left radius, initial encounter for closed fracture (2) Recurrent falls: Code(s): R29.6 - Repeated falls Category: Medical (3) Chronic pain syndrome: Code(s): G89.4 - Chronic pain syndrome Category: Medical (4) Tobacco abuse: Comment: Quitting discussed She declined Chantix or nicotine patch stopped 10/2023 Doing vapes Code(s): Z72.0 - Tobacco use Category: Medical Plan Assessment & Plan: 1. Left distal radius fracture, S/P ORIF DOS: 02/14/25 S/P fall, DOI: 02/09/25 Reduced in ED: 02/09/25 The patient appears to be doing well post-operatively I educated her about the post-operative course She was fitted for a velcro wrist splint, to be worn like a cast except for showering for the next 3 weeks. I explained the signs and symptoms of infection, if the patient develops any new or worsening erythema, drainage, pain, or warmth they should contact the clinic or attend the ED. I discussed activity modifications, she is to lift nothing heavier than a cellphone for the next 4-6 weeks She will perform gentle ROM exercises at home, she can remove her splint at rest to work on ROM She should avoid any underwater activities at this time She vapes, and has a hx of frequent falls, CPS, CRPS affecting her LLE, and anxiety disorder I explained the effects of smoking on wound/bone healing, and recommend they stop smoking prior to surgery & while healing. This includes vaping, Marijuana, and other Nicotine products including patches used to help quit. They expressed understanding. She will follow up in 3-4 weeks, with X-rays, 3V L wrist, OOP Scribed for Sarahy Ramirez MD by Denis Silva, medical housekeeper, on 02/26/25 at 4:10 PM, EST. Orders: Orders XR wrist LT min 3V Today M25.532 - Pain in left wrist Scribe Plan - Not visible on output: Scribed for Sarahy Ramirez MD by Denis Silva medical housekeeper, on [ ] at [ ], EST. Coding Level of Care Code Global (97103) Diagnoses Distal radius fracture, left S52.532A Encounter type: initial encounter Fracture morphology: Colles' Fracture type: closed Recurrent falls R29.6 Chronic pain syndrome G89.4 Tobacco abuse Z72.0
== END 2025-02-26 16:06 ==
LOC: HO.HOS 15:36
PROVIDERS: PCP Internal Medicine; Visit Provider Orthopaedic Surgery
DX: S52.532A Colles' fracture of left radius, initial encounter for closed fracture (principal); R29.6 Repeated falls; G89.4 Chronic pain syndrome; Z72.0 Tobacco use
CPT/HCPCS: 99024

== ENCOUNTER → 2025-02-26 15:39 | Outpatient (BNV) | payer MEDICARE, MEDICAID, SELFPAY | PROVIDERS: Visit Provider Radiology Diagnostic Radiology | DX: S52.502A Unspecified fracture of the lower end of left radius, initial encounter for closed fracture (principal) | CPT/HCPCS: 73110 ==

== ENCOUNTER → 2025-02-27 08:54 | Outpatient (REF) | payer MEDICARE, MEDICAID, SELFPAY ==
--- NOTE | 2025-02-27 09:05 | CA_ITS ---
Transthoracic Echocardiogram Patient (Last, First, Middle): Claudia Villela M Gender: Female Date of : 1960 Age: 64 Procedure Date: 02/27/2025 Procedure Type: Transthoracic Echocardiogram Location: OP Height: 165.1 cm Weight: 77.11 kg BSA: 1.85 m2 Heart Rate: 76 bpm BP: 110 / 70 mmHg Heading Matcher And Assembler: TO Referring MD: Hayden Man MD Clinical Operations Manager: Silvio Tanner MD Symptoms: R55 - Syncope and collapse Study Quality: Adequate ECG Rhythm: Sinus Conclusions: - Essentially normal study Findings Left Ventricle Normal left ventricular size, thickness, and systolic function. The visually estimated ejection fraction is between 60-65%. Spectral Doppler is indicative of a normal filling pattern. Right Ventricle Normal right ventricular cavity size and systolic function. Atria Both atria are normal in size. There is lipomatous hypertrophy of the interatrial septum. Interatrial shunt cannot be excluded. Aortic Valve Normal aortic valve structure and function. There is no aortic valve stenosis. There is no aortic valve regurgitation. Mitral Valve Normal mitral valve structure and function. There is trace mitral valve regurgitation. There is no mitral valve stenosis. Pulmonic Valve The pulmonic valve is likely normal. Tricuspid Valve Likely normal tricuspid valve structure and function. Tricuspid regurgitation envelope is inadequate for calculation of right ventricular systolic pressure. Normal right atrial pressure. Great Vessels All visible segments of the aorta are normal in size. The pulmonary artery was not well visualized. Venous The inferior vena cava is normal in size and collapses greater than 50% with inspiration. Pericardium/Pleural There is no evidence of pericardial effusion. Prior Study Comparison No prior study available for comparison. Measurements 2D Linear Measurements IVSd: 0.73 0.6-0.9/0.6-1.0 cm LVIDd: 4.44 3.9-5.3/4.2-5.9 cm LVIDd Index: 2.40 2.4-3.2/2.2-3.1 cm/m2 LVIDs: 2.90 2.0-3.6 cm LVPWd: 0.69 0.7-1.1 cm LA Diam: 2.90 2.7-3.8/3.0-4.0 cm LAIDs Index: 1.57 1.5-2.3 cm/m2 LV Mass: 117.39 67-162/88-224 g LV Mass Index: 63.46 43-95/49-115 g/m2 LVOT Diam: 2.00 3.0+(-)1.3 cm 2D Systolic Function EF 4C: 61.00 >55% EF 2C: 57.70 >55% EF BiP: 60.60 >55% Mitral Valve MV Pk E: 0.52 MV PK A: 0.66 MV Decel Time: 199.00 E/A: 0.80 E'Lateral: 9.36 E'Medial: 6.74 E/E' Med: 7.70 E/E' Lat: 5.50 PHT: 58.00 MVA PHT: 3.79 Decel Robeson: 2.61 Aortic Valve AoV Pk Bruno: 1.48 AoV Mn Bruno: 0.99 AoV VTI: 0.27 AoV Pk Grad: 9.00 Aov Mn Grad: 4.00 JUSTO Cont.VTI: 2.20 LVOT LVOT Pk Bruno: 1.05 LVOT Mn Bruno: 0.71 LVOT VTI: 0.19 LVOT Pk Grad: 4.00 LVOT Mn Grad: 2.00 LVOT Diam: 2.00 LVOT Area: 3.14 Diastolic Function MV Pk E: 0.52 MV Pk A: 0.66 E/A: 0.80 E'Medial: 6.74 E/E' Med: 7.70 E' Laterial: 9.36 E/E' Lat: 5.50 Right Ventricle TAPSE (mm): 23.30 TVS' Bruno: 13.10 Tricuspid Valve RA Press: 3.00 Great Vessels Aorta Sinus of Valsalva: 2.82 2.0-3.5 cm Ao Asc: 2.90 2.1-3.4 cm Updated in Other Vendor System with Status of Final Silvio Tanner MD electronically signed on 02/27/2025 3:46:09 PM with status of Final
--- OUTSIDE RECORDS SUMMARY | 2025-02-27 09:19 | XMS_ITS | Encounter Summary ---
Author Organization [facility] Address [address] [place] [address] Care Team Providers Care Agricultural Production Engineer Name Role Phone Hayden Man MD Primary Care Provider [phone] Maggy Swartz MD Unavailable [phone] Encounter Details Date Type Department Care Team (Late st Contact Info) Description 02/02/2021 Scanned Document [facility] Neurosurgery [place] [address] [address] Maggy Swartz MD [address] [address] Social History Tobacco Use Types Packs/Day Years [...] on filedocumented in this encounter Care Teams Agricultural Production Engineer Relationship Specialty Start Date End Date Hayden Man MD [address] [place] [address] [place] [address] PCP - General Internal Medicine 05/06/20 Maggy Swartz MD [address] [place] [address] Surgery, Neurosurgery 08/20/20 documented as of this encounter
--- OUTSIDE RECORDS SUMMARY | 2025-02-27 09:19 | XMS_ITS | Encounter Summary ---
Author Organization [facility] Address [address] [place] [address] Care Team Providers Care Fruit Grader Operator Name Role Phone Hayden Man MD Primary Care Provider [phone] Maggy Swartz MD Unavailable [phone] Encounter Details Date Type Department Care Team (Late st Contact Info) Description 07/22/2021 Scanned Document [facility] Neurosurgery [place] [address] [address] Maggy Swartz MD [address] [address] Social History Tobacco Use Types Packs/Day Years [...] on filedocumented in this encounter Care Teams Fruit Grader Operator Relationship Specialty Start Date End Date Hayden Man MD [address] [place] [address] [place] [address] PCP - General Internal Medicine 05/06/20 Maggy Swartz MD [address] [place] [address] Surgery, Neurosurgery 08/20/20 documented as of this encounter
--- OUTSIDE RECORDS SUMMARY | 2025-02-27 09:19 | XMS_ITS | Encounter Summary ---
Author Organization [address] [address] Care Team Providers Care Car Starter Name Role Phone Hayden Man MD Primary Care Provider [phone] Maggy Swartz MD Unavailable [phone] Encounter Details Date Type Department Care Team (Late st Contact Info) Description 08/22/[address] [facility] Neurosurgery [place] 85 [facility] [address] [place] [phone] Maggy Swartz MD 85 [facility] [place] [address] [place] [address] Social History Tobacco Use Types Packs/Day Years [...] on filedocumented in this encounter Care Teams Car Starter Relationship Specialty Start Date End Date Hayden Man MD [address] [place] [address] [address] [place] [address] PCP - General Internal Medicine 05/06/20 Maggy Swartz MD [address] [place] [address] Surgery, Neurosurgery 08/20/20 documented as of this encounter
--- OUTSIDE RECORDS SUMMARY | 2025-02-27 09:19 | XMS_ITS | Encounter Summary ---
Author Organization [facility] Address [address] [place] [address] Care Team Providers Care Wound Care Center Consultant Name Role Phone Hayden Man MD Primary Care Provider [phone] Maggy Swartz MD Unavailable [phone] Encounter Details Date Type Department Care Team (Late st Contact Info) Description 09/11/2021 Scanned Document [facility] Neurosurgery [place] [address] [address] Maggy Swartz MD [address] [address] Social History Tobacco Use Types Packs/Day Years [...] on filedocumented in this encounter Care Teams Wound Care Center Consultant Relationship Specialty Start Date End Date Hayden Man MD [address] [place] [address] [place] [address] PCP - General Internal Medicine 05/06/20 Maggy Swartz MD [address] [place] [address] Surgery, Neurosurgery 08/20/20 documented as of this encounter
--- OUTSIDE RECORDS SUMMARY | 2025-02-27 09:19 | XMS_ITS | Encounter Summary ---
Author Organization [address] [address] Care Team Providers Care Fountain Vending Mechanic Name Role Phone Hayden Man MD Primary Care Provider [phone] Maggy Swartz MD Unavailable [phone] Encounter Details Date Type Department Care Team (Late st Contact Info) Description 09/17/2020 Scanned Document [facility] Neurosurgery [place] 85 [facility] [address] [place] [phone] Maggy Swartz MD 85 [facility] [place] [address] [place] [address] Social History Tobacco Use Types Packs/Day Years [...] on filedocumented in this encounter Care Teams Fountain Vending Mechanic Relationship Specialty Start Date End Date Hayden Man MD [address] [place] [address] [address] [place] [address] PCP - General Internal Medicine 05/06/20 Maggy Swartz MD [address] [place] [address] Surgery, Neurosurgery 08/20/20 documented as of this encounter
--- OUTSIDE RECORDS SUMMARY | 2025-02-27 09:19 | XMS_ITS | Encounter Summary ---
Author Organization [facility] Address [address] [place] [address] Care Team Providers Care Promotional Demonstrator Name Role Phone Hayden Man MD Primary Care Provider [phone] Maggy Swartz MD Unavailable [phone] Encounter Details Date Type Department Care Team (Late st Contact Info) Description 12/16/2020 Scanned Document [facility] Neurosurgery [address] [place] [address] Bibi Maza PA Valid Address Needed Social [...] on filedocumented in this encounter Care Teams Promotional Demonstrator Relationship Specialty Start Date End Date Hayden Man MD [address] [place] [address] [place] [address] PCP - General Internal Medicine 05/06/20 Maggy Swartz MD [address] [place] [address] Surgery, Neurosurgery 08/20/20 documented as of this encounter
--- OUTSIDE RECORDS SUMMARY | 2025-02-27 09:19 | XMS_ITS | Encounter Summary ---
Author Organization [facility] Address [address] [place] [address] Care Team Providers Care Credit Checker Name Role Phone Hayden Man MD Primary Care Provider [phone] Maggy Swartz MD Unavailable [phone] Encounter Details Date Type Department Care Team (Late st Contact Info) Description 12/16/2020 Scanned Document [facility] Neurosurgery [address] [place] [address] Bibi Maza PA Valid Address Needed Social [...] filedocumented in this encounter Care Teams Credit Checker Relationship Specialty Start Date End Date Hayden Man MD [address] [place] [address] [place] [address] PCP - General Internal Medicine 05/06/20 Maggy Swartz MD [address] [place] [address] Surgery, Neurosurgery 08/20/20 documented as of this encounter
--- OUTSIDE RECORDS SUMMARY | 2025-02-27 09:19 | XMS_ITS | Encounter Summary ---
Author Organization [facility] Address [address] [place] [address] Care Team Providers Care Life Skills Coordinator Name Role Phone Hayden Man MD Primary Care Provider [phone] Maggy Swartz MD Unavailable [phone] Reason for Visit * Reason Comments Other needs crea ordered Encounter Details Date Type Department Care Team (Late st Contact Info) Description 12/12/[address] [facility] Urologic Surgery [address] [phone] Hardik Reese MD [address] [place] [address] Other (needs crea ordered) Social History [...] PO contrast. I advised I would contact [facility] as we do notuse PO contrast for the CT scan of the abdomen. She is getting her labs done today. * Telephone Encounter - Jacoby East LPN - 12/12/2020 2:42 PM EST Order for creatinine to be drawn at [facility]. documented in this encounter Plan of Treatment Not on file documented as of this encounter Visit Diagnoses Not on filedocumented in this encounter Care Teams Life Skills Coordinator Relationship Specialty Start Date End Date Po, Hayden Serrano MD [address] [place] [address] Dr [address] [place] [address] PCP - General Internal Medicine 05/06/20 Maggy Swartz MD [address] [place] [address] Surgery, Neurosurgery 08/20/20 documented as of this encounter
--- OUTSIDE RECORDS SUMMARY | 2025-02-27 09:19 | XMS_ITS | Encounter Summary ---
Author Organization [facility] Address [address] [place] [address] Care Team Providers Care Chemist Steroids Name Role Phone Hayden Man MD Primary Care Provider [phone] Maggy Swartz MD Unavailable [phone] Reason for Visit * Reason Comments Medication Refill Encounter Details Date Type Department Care Team (Late st Contact Info) Description 09/27/2020 Refill [facility] Neurosurgery [address] [place] [phone] Bibi Maza PA Valid Address Needed Lumbar [...] myelopathy documented in this encounter Care Teams Chemist Steroids Relationship Specialty Start Date End Date Hayden Man MD [address] [place] [address] 101 [place] [address] PCP - General Internal Medicine 05/06/20 Maggy Swartz MD [address] [place] [address] Surgery, Neurosurgery 08/20/20 documented as of this encounter
--- OUTSIDE RECORDS SUMMARY | 2025-02-27 09:19 | XMS_ITS | Clinical Summary ---
Author Organization [facility] Address [address] [place] [address] Care Team Providers Care Dehydrogenation Operator Head Name Role Phone Hayden Man MD Primary Care Provider [phone] Maggy Swartz MD Unavailable [phone] Allergies No known active allergies Medications [...] Done Comments Hepatitis C Virus Screening 1960 HIV Screening 1975 DTaP/Tdap/Td Vaccines (1 - [...] this topic Medical Devices Implanted Type Area Strip Stamp Straightener Device Identifier Shelf Expiration Date Model / Serial / Lot [id number] Spacer Spinal [id number] Cpstn Peek Ptc Lmbr Intrbd Fs Sterl - [id number] Implanted:Qty: 1 on 09/08/2020 by Maggy Swartz MD at [facility] Cage N/A: Spine Lumbar [employer] 10/20/2026 [id number] / / [id number] Ashok Spinal 70mm 5.5mm Cd Hzn Crv Ti Cp4 Nonst - [id number] Implanted:Qty: 2 on 09/08/2020 by Maggy Swartz MD at [facility] Nail/Ashok N/A: Spine Lumbar [employer] [id number] / / [id number] Screw Bone Spine Solera Cd Hzn 40mm Cocr 5.5mm Ma Nonst 5.5 - [id number] Implanted:Qty: 2 on 09/08/2020 by Maggy Swartz MD at [facility] Spine N/A: Spine Lumbar [employer] [id number] / / [id number] Screw Bone Spine Cd Hzn Solera 45mm Ti Cocr 5.5mm Ma Nonst - [id number] Implanted:Qty: 4 on 09/08/2020 by Maggy Swartz MD at [facility] Spine N/A: Spine Lumbar [employer] [id number] / / [id number] Screw Set Ti Spine Brk Off Cd Hzn Nonst 5.5 Mm Ashok - [id number] Implanted:Qty: 6 on 09/08/2020 by Maggy Swartz MD at [facility] Spine N/A: Spine Lumbar [employer] [id number] / / [id number] Filler Bone Void 10cc Dbx Algrf Frzdr Putty - [id number] Implanted:Qty: 1 on 09/08/2020 by Maggy Swartz MD at [facility] Void Filler N/A: Spine Lumbar [employer] 03/19/2022 [id number] / [id number] / [id number] Filler Bone Void 10cc Dbx Algrf Frzdr Putty - [id number] Implanted:Qty: 1 on 09/08/2020 by Maggy Swartz MD at [facility] Void Filler N/A: Spine Lumbar [employer] 12/13/2021 [id number] / [id number] Filler Bone Void 10cc Dbx Algrf Frzdr Putty - [id number] Implanted:Qty: 1 on 09/08/2020 by Maggy Swartz MD at [facility] Void Filler N/A: Spine Lumbar [employer] 03/19/2022 [id number] / [id number] / Insurance [facility] Advance Directives * Full Code (Latest Code Status on File) Date Activated Date Inactivated Comments 09/08/2020 8:09 PM * Full Code Date Activated Date Inactivated Comments 09/08/2020 9:46 AM 09/08/2020 8:09 PM * Full Code Date Activated Date Inactivated Comments 06/25/2020 3:59 PM 09/08/2020 9:10 AM * Full Code Date Activated Date Inactivated Comments 06/25/2020 8:24 AM 06/25/2020 3:59 PM Care Teams Dehydrogenation Operator Head Relationship Specialty Start Date End Date Hayden Man MD [address] [place] [address] Dr [address] [place] [address] PCP - General Internal Medicine 05/06/20 Maggy Swartz MD [address] [place] [address] Surgery, Neurosurgery 08/20/20
--- OUTSIDE RECORDS SUMMARY | 2025-02-27 09:19 | XMS_ITS | Encounter Summary ---
Author Organization [facility] Address [address] [place] [address] Care Team Providers Care Equine Dentist Name Role Phone Hayden Man MD Primary Care Provider [phone] Maggy Swartz MD Unavailable Encounter Details Date Type Department Care Team (Late st Contact Info) Description 03/24/2021 Scanned Document [address] [address] Bibi Maza PA Valid Address [...] on filedocumented in this encounter Care Teams Equine Dentist Relationship Specialty Start Date End Date Hayden Man MD [address] [place] [address] [place] [address] PCP - General Internal Medicine 05/06/20 Maggy Swartz MD [address] [place] [address] Surgery, Neurosurgery 08/20/20 documented as of this encounter
--- OUTSIDE RECORDS SUMMARY | 2025-02-27 09:19 | XMS_ITS | Encounter Summary ---
Author Organization [facility] Address [address] [place] [address] Care Team Providers Care In Flight Crew Member Name Role Phone Hayden Man MD Primary Care Provider [phone] Maggy Swartz MD Unavailable [phone] Reason for Visit * Reason Comments Other Encounter Details Date Type Department Care Team (Late st Contact Info) Description 04/03/2021 Telephone [facility] Urologic Surgery [address] [phone] Hardik Reese MD [address] [place] [address] Other Social History Tobacco Use Types [...] Ct abdomen with and without contrast to [facility]. documented in this encounter Plan of Treatment Not on file documented as of this encounter Visit Diagnoses Not on filedocumented in this encounter Care Teams In Flight Crew Member Relationship Specialty Start Date End Date Hayden Man MD [address] [place] [address] [address] [place] [address] PCP - General Internal Medicine 05/06/20 Maggy Swartz MD [address] [place] [address] Surgery, Neurosurgery 08/20/20 documented as of this encounter
--- OUTSIDE RECORDS SUMMARY | 2025-02-27 09:19 | XMS_ITS | Encounter Summary ---
Author Organization [facility] Address [address] [place] [address] Care Team Providers Care Dock Supervisor Name Role Phone Hayden Man MD Primary Care Provider [phone] Maggy Swartz MD Unavailable [phone] Encounter Details Date Type Department Care Team (Late st Contact Info) Description 02/02/2021 Scanned Document [facility] Neurosurgery [place] [address] [address] Maggy Swartz MD [address] [address] Social History Tobacco Use Types Packs/Day Years [...] on filedocumented in this encounter Care Teams Dock Supervisor Relationship Specialty Start Date End Date Hayden Man MD [address] [place] [address] [place] [address] PCP - General Internal Medicine 05/06/20 Maggy Swartz MD [address] [place] [address] Surgery, Neurosurgery 08/20/20 documented as of this encounter
--- OUTSIDE RECORDS SUMMARY | 2025-02-27 09:19 | XMS_ITS | Encounter Summary ---
Author Organization [facility] Address [address] [place] [address] Care Team Providers Care Loss Control Representative Name Role Phone Hayden Man MD Primary Care Provider [phone] Maggy Swartz MD Unavailable [phone] Encounter Details Date Type Department Care Team (Late st Contact Info) Description 12/16/2020 Scanned Document [facility] Neurosurgery [address] [place] [address] Bibi Maza PA Valid Address Needed Social [...] on filedocumented in this encounter Care Teams Loss Control Representative Relationship Specialty Start Date End Date Hayden Man MD [address] [place] [address] [place] [address] PCP - General Internal Medicine 05/06/20 Maggy Swartz MD [address] [place] [address] Surgery, Neurosurgery 08/20/20 documented as of this encounter
== END ==
LOC: HO.CARD 08:54
PROVIDERS: PCP Internal Medicine; Visit Provider Internal Medicine
DX: R55 Syncope and collapse (principal)
CPT/HCPCS: 93306

== ENCOUNTER → 2025-02-27 09:05 | Outpatient (BNV) | payer MEDICARE, MEDICAID, SELFPAY | PROVIDERS: PCP Internal Medicine; Visit Provider Internal Medicine Cardiovascular Disease | DX: I34.0 Nonrheumatic mitral (valve) insufficiency (principal); I36.1 Nonrheumatic tricuspid (valve) insufficiency | CPT/HCPCS: 93306 ==

== ENCOUNTER 2025-03-01 09:13 | Outpatient (REF) | payer MEDICARE, MEDICAID, SELFPAY ==
--- OUTSIDE RECORDS SUMMARY | 2025-03-01 09:51 | XMS_ITS | Encounter Summary ---
Author Organization [facility] Address [address] [place] [address] Care Team Providers Care Customs Examiner Name Role Phone Hayden Man MD Primary Care Provider [phone] Maggy Swartz MD Unavailable [phone] Encounter Details Date Type Department Care Team (Late st Contact Info) Description 09/11/2021 Scanned Document [facility] Neurosurgery [place] [address] [place] [address] [address] Maggy Swartz MD [address] [address] Social History Tobacco Use Types Packs/Day Years [...] on filedocumented in this encounter Care Teams Customs Examiner Relationship Specialty Start Date End Date aHyden Man MD [address] [place] [address] [place] [address] PCP - General Internal Medicine 05/06/20 Maggy Swartz MD [address] [place] [address] Surgery, Neurosurgery 08/20/20 documented as of this encounter
--- OUTSIDE RECORDS SUMMARY | 2025-03-01 09:51 | XMS_ITS | Encounter Summary ---
Author Organization [facility] Address [address] [place] [address] Care Team Providers Care Talent Acquisition Coordinator Name Role Phone Hayden Man MD Primary Care Provider [phone] Maggy Swartz MD Unavailable [phone] Encounter Details Date Type Department Care Team (Late st Contact Info) Description 12/16/2020 Scanned Document [facility] Neurosurgery [address] [place] [address] Bibi Maza PA Valid Address Needed Social [...] on filedocumented in this encounter Care Teams Talent Acquisition Coordinator Relationship Specialty Start Date End Date Hayden Man MD [address] [place] [address] [place] [address] PCP - General Internal Medicine 05/06/20 Maggy Swartz MD [address] [place] [address] Surgery, Neurosurgery 08/20/20 documented as of this encounter
--- OUTSIDE RECORDS SUMMARY | 2025-03-01 09:51 | XMS_ITS | Encounter Summary ---
Author Organization [facility] Address [address] [place] [address] Care Team Providers Care Varnish Filterer Name Role Phone Hayden Man MD Primary Care Provider [phone] Maggy Swartz MD Unavailable [phone] Encounter Details Date Type Department Care Team (Late st Contact Info) Description 12/16/2020 Scanned Document [facility] Neurosurgery [address] [place] [address] Bibi Maza PA Valid Address Needed Social [...] on filedocumented in this encounter Care Teams Varnish Filterer Relationship Specialty Start Date End Date Hayden Man MD [address] [place] [address] [place] [address] PCP - General Internal Medicine 05/06/20 Maggy Swartz MD [address] [place] [address] Surgery, Neurosurgery 08/20/20 documented as of this encounter
--- OUTSIDE RECORDS SUMMARY | 2025-03-01 09:51 | XMS_ITS | Encounter Summary ---
Author Organization [facility]ly [facility] Address [address] [place] [address] Care Team Providers Care Pet Stylist Name Role Phone Hayden Man MD Primary Care Provider [phone] Maggy Swartz MD Unavailable [phone] Encounter Details Date Type Department Care Team (Late st Contact Info) Description 02/02/[address] [facility] Neurosurgery [place] [address] [address] Maggy Swartz MD [address] [address] Social History Tobacco Use Types Packs/Day Years [...] on filedocumented in this encounter Care Teams Pet Stylist Relationship Specialty Start Date End Date Hayden Man MD [address] [place] [address] [place] [address] PCP - General Internal Medicine 05/06/20 Maggy Swartz MD [address] [place] [address] Surgery, Neurosurgery 08/20/20 documented as of this encounter
--- OUTSIDE RECORDS SUMMARY | 2025-03-01 09:51 | XMS_ITS | Encounter Summary ---
Author Organization [facility] Address [address] [place] [address] Care Team Providers Care Marketing Operations Specialist Name Role Phone Hayden Man MD Primary Care Provider [phone] Maggy Swartz MD Unavailable [phone] Reason for Visit * Reason Comments Medication Refill Encounter Details Date Type Department Care Team (Late st Contact Info) Description 09/27/2020 Refill [facility] Neurosurgery [address] [place] [address] Bibi Maza PA Valid Address Needed Lumbar [...] myelopathy documented in this encounter Care Teams Marketing Operations Specialist Relationship Specialty Start Date End Date Hayden Man MD [address] [place] [address] 101 [place] [address] PCP - General Internal Medicine 05/06/20 Maggy Swartz MD [address] [place] [address] Surgery, Neurosurgery 08/20/20 documented as of this encounter
--- OUTSIDE RECORDS SUMMARY | 2025-03-01 09:51 | XMS_ITS | Encounter Summary ---
Author Organization [facility] Address [address] [place] [address] Care Team Providers Care Adult And Pediatric Neurologist Name Role Phone Hayden Man MD Primary Care Provider [phone] Maggy Swartz MD Unavailable [phone] Encounter Details Date Type Department Care Team (Late st Contact Info) Description 12/16/2020 Scanned Document [facility] Neurosurgery [address] [place] [address] Bibi Maza PA Valid Address Needed Social [...] on filedocumented in this encounter Care Teams Adult And Pediatric Neurologist Relationship Specialty Start Date End Date Hayden Man MD [address] [place] [address] [place] [address] PCP - General Internal Medicine 05/06/20 Maggy Swartz MD [address] [place] [address] Surgery, Neurosurgery 08/20/20 documented as of this encounter
--- OUTSIDE RECORDS SUMMARY | 2025-03-01 09:51 | XMS_ITS | Encounter Summary ---
Author Organization [facility] Address [address] [place] [address] Care Team Providers Care Byproducts Maker Name Role Phone Hayden Man MD Primary Care Provider [phone] Maggy Swartz MD Unavailable [phone] Encounter Details Date Type Department Care Team (Late st Contact Info) Description 07/22/2021 Scanned Document [facility] Neurosurgery [place] [address] [address] Maggy Swartz MD [address] [address] Social History Tobacco Use Types Packs/Day Years [...] on filedocumented in this encounter Care Teams Byproducts Maker Relationship Specialty Start Date End Date Hayden Man MD [address] [place] [address] [place] [address] PCP - General Internal Medicine 05/06/20 Maggy Swartz MD [address] [place] [address] Surgery, Neurosurgery 08/20/20 documented as of this encounter
--- OUTSIDE RECORDS SUMMARY | 2025-03-01 09:51 | XMS_ITS | Encounter Summary ---
Author Organization [address] [address] Care Team Providers Care Web Analytics Developer Name Role Phone Hayden Man MD Primary Care Provider [phone] Maggy Swartz MD Unavailable [phone] Encounter Details Date Type Department Care Team (Late st Contact Info) Description 08/22/2020 Scanned Document [facility] Neurosurgery [place] 85 [facility] [address] [place] [address] Maggy Swartz MD [address] [facility] [place] [address] [place] [address] Social History Tobacco Use Types Packs/Day Years [...] on filedocumented in this encounter Care Teams Web Analytics Developer Relationship Specialty Start Date End Date Hayden Man MD [address] [place] [address] Dr Vo [address] [place] [address] PCP - General Internal Medicine 05/06/20 Maggy Swartz MD [address] [place] [address] Surgery, Neurosurgery 08/20/20 documented as of this encounter
--- OUTSIDE RECORDS SUMMARY | 2025-03-01 09:51 | XMS_ITS | Clinical Summary ---
Author Organization [facility] Address [address] [place] [address] Care Team Providers Care General Road Foreman Name Role Phone Hayden Man MD Primary Care Provider [phone] Maggy Swartz MD Unavailable [phone] Allergies No known active allergies Medications [...] this topic Medical Devices Implanted Type Area Vocal Artist Device Identifier Shelf Expiration Date Model / Serial / Lot [id number] Spacer Spinal [id number] Cpstn Peek Ptc Lmbr Intrbd Fs Sterl - [id number] Implanted:Qty: 1 on 09/08/2020 by Maggy Swartz MD at [facility] Cage N/A: Spine Lumbar [employer] MINIMALLY INVASIVE T 10/20/2026 [id number] / / [id number] Ashok Spinal 70mm 5.5mm Cd Hzn Crv Ti Cp4 Nonst - [id number] Implanted:Qty: 2 on 09/08/2020 by Maggy Swartz MD at [facility] Nail/Ashok N/A: Spine Lumbar [employer] MINIMALLY INVASIVE T [id number] / / [id number] Screw Bone Spine Solera Cd Hzn 40mm Cocr 5.5mm Ma Nonst 5.5 - [id number] Implanted:Qty: 2 on 09/08/2020 by Maggy Swartz MD at [facility] Spine N/A: Spine Lumbar [employer] MINIMALLY INVASIVE T [id number] / / [id number] Screw Bone Spine Cd Hzn Solera 45mm Ti Cocr 5.5mm Ma Nonst - [id number] Implanted:Qty: 4 on 09/08/2020 by Maggy Swartz MD at [facility] Spine N/A: Spine Lumbar [employer] MINIMALLY INVASIVE T [id number] / / [id number] Screw Set Ti Spine Brk Off Cd Hzn Nonst 5.5 Mm Ashok - [id number] Implanted:Qty: 6 on 09/08/2020 by Maggy Swartz MD at [facility] Spine N/A: Spine Lumbar [employer] MINIMALLY INVASIVE T [id number] / / [id number] Filler Bone Void 10cc Dbx Algrf Frzdr Putty - [id number] Implanted:Qty: 1 on 09/08/2020 by Maggy Swartz MD at [facility] Void Filler N/A: Spine Lumbar [employer]ANSPL[employer] FOU 03/19/2022 [id number] / [id number] / [id number] Filler Bone Void 10cc Dbx Algrf Frzdr Putty - [id number] Implanted:Qty: 1 on 09/08/2020 by Maggy Swartz MD at [facility] Void Filler N/A: Spine Lumbar [employer] TRANSPLANT FOU 12/13/2021 [id number] / [id number] / [id number] Filler Bone Void 10cc Dbx Algrf Frzdr Putty - [id number] Implanted:Qty: 1 on 09/08/2020 by Maggy Swartz MD at [facility] Void Filler N/A: Spine Lumbar [employer]LET[employer] TRANSPLANT FOU 03/19/2022 [id number] / [id number] / Insurance [facility] Advance Directives * Full Code (Latest Code Status on File) Date Activated Date Inactivated Comments 09/08/2020 8:09 PM * Full Code Date Activated Date Inactivated Comments 09/08/2020 9:46 AM 09/08/2020 8:09 PM * Full Code Date Activated Date Inactivated Comments 06/25/2020 3:59 PM 09/08/2020 9:10 AM * Full Code Date Activated Date Inactivated Comments 06/25/2020 8:24 AM 06/25/2020 3:[address] Foreman Relationship Specialty Start Date End Date Hayden Man MD [address] [place] [address] [address] [place] [address] PCP - General Internal Medicine 05/06/20 Maggy Swartz MD [address] [place] [address] Surgery, Neurosurgery 08/20/20
--- OUTSIDE RECORDS SUMMARY | 2025-03-01 09:51 | XMS_ITS | Encounter Summary ---
Author Organization [facility] Address [address] [place] [address] Care Team Providers Care Consumer Services Advisor Name Role Phone Hayden Man MD Primary Care Provider [phone] Maggy Swartz MD Unavailable [phone] Encounter Details Date Type Department Care Team (Late st Contact Info) Description 02/02/2021 Scanned Document [facility] Neurosurgery [place] [address] [address] Maggy Swartz MD [address] [address] Social History Tobacco Use Types Packs/Day Years [...] on filedocumented in this encounter Care Teams Consumer Services Advisor Relationship Specialty Start Date End Date Hayden Man MD [address] [place] [address] [place] [address] PCP - General Internal Medicine 05/06/20 Maggy Swartz MD [address] [place] [address] Surgery, Neurosurgery 08/20/20 documented as of this encounter
--- OUTSIDE RECORDS SUMMARY | 2025-03-01 09:51 | XMS_ITS | Encounter Summary ---
Author Organization [facility] Address [address] [place] [address] Care Team Providers Care Architectural Draftsperson Name Role Phone Hayden Man MD Primary Care Provider [phone] Maggy Swartz MD Unavailable [phone] Reason for Visit * Reason Comments Other Encounter Details Date Type Department Care Team (Late st Contact Info) Description 04/03/2021 Telephone [facility] Urologic Surgery [address] [phone] Hardik Reese MD [address] [place] [address] Other Social History Tobacco Use Types [...] Ct abdomen with and without contrast to [facility]. documented in this encounter Plan of Treatment Not on file documented as of this encounter Visit Diagnoses Not on filedocumented in this encounter Care Teams Architectural Draftsperson Relationship Specialty Start Date End Date Hayden Man MD [address] [place] [address] 101 [place] [address] PCP - General Internal Medicine 05/06/20 Maggy Swartz MD [address] [place] [address] Surgery, Neurosurgery 08/20/20 documented as of this encounter
--- OUTSIDE RECORDS SUMMARY | 2025-03-01 09:51 | XMS_ITS | Encounter Summary ---
Author Organization [address] [address] Care Team Providers Care Assistant Principal Name Role Phone Hayden Man MD Primary Care Provider [phone] Maggy Swartz MD Unavailable [phone] Encounter Details Date Type Department Care Team (Late st Contact Info) Description 09/17/2020 Scanned Document [facility] Neurosurgery [place] 85 [facility] [address] [place] [phone] Maggy Swartz MD 85 [facility] [place] [address] [place] [address] Social History Tobacco Use Types Packs/Day Years [...] on filedocumented in this encounter Care Teams Assistant Principal Relationship Specialty Start Date End Date Hayden Man MD [address] [place] [address] Dr [address] [place] [address] PCP - General Internal Medicine 05/06/20 Maggy Swartz MD [address] [place] [address] Surgery, Neurosurgery 08/20/20 documented as of this encounter
--- OUTSIDE RECORDS SUMMARY | 2025-03-01 09:51 | XMS_ITS | Encounter Summary ---
Author Organization [facility] Address [address] [place] [address] Care Team Providers Care Transit Proof Machine Operator Name Role Phone Hayden Man MD Primary Care Provider [phone] Maggy Swartz MD Unavailable [phone] Reason for Visit * Reason Comments Other needs crea ordered Encounter Details Date Type Department Care Team (Late st Contact Info) Description 12/12/2020 Telephone [facility] Urologic Surgery [address] [phone] Hardik Reese MD [address] [place] [address] Other (needs crea ordered) Social History [...] PO contrast. I advised I would contact [facility] as we do notuse PO contrast for the CT scan of the abdomen. She is getting her labs done today. * Telephone Encounter - Jacoby East LPN - 12/12/2020 2:42 PM EST Order for creatinine to be drawn at [facility]. documented in this encounter Plan of Treatment Not on file documented as of this encounter Visit Diagnoses Not on filedocumented in this encounter Care Teams Transit Proof Machine Operator Relationship Specialty Start Date End Date Po, Hayden Serrano MD [address] [place] [address] Dr Vo [address] [place] [address] PCP - General Internal Medicine 05/06/20 Maggy Swartz MD [address] [place] [address] Surgery, Neurosurgery 08/20/20 documented as of this encounter
--- OUTSIDE RECORDS SUMMARY | 2025-03-01 09:51 | XMS_ITS | Encounter Summary ---
Author Organization [facility] Address [address] [place] [address] Care Team Providers Care Stator Connector Name Role Phone Hayden Man MD Primary Care Provider [phone] Maggy Swartz MD Unavailable [phone] Encounter Details Date Type Department Care Team (Late st Contact Info) Description 03/24/2021 Scanned Document [facility] Neurosurgery [address] [phone] Bibi Maza PA Valid Address [...] on filedocumented in this encounter Care Teams Stator Connector Relationship Specialty Start Date End Date Hayden Man MD [address] [place] [address] [place] [address] PCP - General Internal Medicine 05/06/20 Maggy Swartz MD [address] [place] [address] Surgery, Neurosurgery 08/20/20 documented as of this encounter
== END 2025-03-01 09:14 | disposition home or self-care (01) ==
LOC: HO.MAMMO 09:13
PROVIDERS: PCP Internal Medicine; Visit Provider Internal Medicine
DX: Z12.31 Encounter for screening mammogram for malignant neoplasm of breast (principal)
CPT/HCPCS: 77063; 77067

== ENCOUNTER → 2025-03-01 09:15 | Outpatient (BNV) | payer MEDICARE, MEDICAID, SELFPAY | PROVIDERS: PCP Internal Medicine; Visit Provider Internal Medicine | DX: Z12.31 Encounter for screening mammogram for malignant neoplasm of breast (principal) | CPT/HCPCS: 77063; 77067 ==

== ENCOUNTER 2025-03-08 08:24 | Outpatient (AMB) | payer MEDICARE, MEDICAID, SELFPAY ==
--- NOTE | 2025-03-08 08:32 | MHC.OFFVIS ---
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 States she is having radiating pain from her buttock down her leg and toes. She is also having knee pain, weakness and leg gives out causing her to fall and break her wrist which she is currently seeing Dr Ramirez for. Patient has tried therapy and injections in the past with no improvement. Hx of back surgery in [address] [place] Patient referred by Jona Goodman. Allergies No Known Allergies [No Known Allergies*] Allergy (Verified 03/08/25 08:39) Medication List - Last Reconciled 03/08/25 by Adilene Linton MD [toilet seat risers and Raised toilet seat As directed] alprazolam 0.25 mg PO DAILY ascorbate calcium (vitamin C) 500 mg PO DAILY aspirin (Adult Aspirin Regimen) 81 mg PO DAILY clotrimazole 1% 1 appl topical BID 4 weeks cyanocobalamin (vitamin B-12) 1,000 mcg PO .QOD duloxetine 60 mg PO DAILY 90 days gabapentin 1,800 mg (3 x 600 mg) PO BID ibuprofen 600 mg PO Q8H PRN levothyroxine 88 mcg PO QAM magnesium oxide 400 mg PO DAILY miscellaneous medical supply 1 ea miscellaneous DAILY [RAISED TOILET As directed] [Raised toilet seat As directed] [SHOWER Chair As directed] [toilet seat risers As directed] triamcinolone acetonide 0.025% appl topical [WALK IN SHOWER As directed] [Wrist SPlints As directed] HPI Comments Details: History of chronic left lower extremity pain. 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 Recent MRI showed stress reaction that ortho probably thought was nonsurgical. Please see notes from pain management or orthopedics, as well as the MRI results below. She says she does not believe the diagnosis is CRPS. She thinks that it is coming from the hip. She's ask her PCP for an MRI and it's under process. Denies groin pain. Pain lateral hip down to right knee. She hears cracking when she walks. Denies numbness. Left leg gave out, fell and had fractured wrist, following hand surgery for that. History of lumbar surgeries as well, by Dr. Barone. Independently functionally. Difficulty with putting shoe and sock due to pain, due to those compressing leg and causing more pain. Poor tolerance with shoes and socks. Hypersensitive to touch. Excruciating pain when standing or sitting. Red spots all over, has seen dermatology. Denies discoloration of left leg only. On gabapentin 3600mg per PCP. Duloxetin 60mg for anxiety. [facility] Medical History Breast cancer screening by mammogram Generalized anxiety disorder Left leg paresthesias Bacterial vaginosis Anxiety Opioid use disorder Chronic pain syndrome Postlaminectomy syndrome Complex regional pain syndrome i of left lower limb Primary osteoarthritis of left knee Tobacco abuse Renal lesion Closed left ankle fracture Cervical disc herniation Hypothyroidism Surgical History Hx of cervical discectomy H/O colonoscopy H/O lumbar discectomy Spinal stenosis History of left knee surgery Left ACL tear Family History Father No problems noted. 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 Patient was appropriately conversant and oriented. Good historian. MSK: She had difficulty sitting up straight, avoiding putting weight on left side. Allodynia and hypersensitivity on left lower extremity throughout. Question more swelling and redness on left leg. Negative ARIANNA, good hip range of motion, no tenderness over GT. Negative slump sit. No tenderness over SI joint or lumbar spine. No sensitivity to touch on previous lumbar surgery scars. Neurological: Neurologic examination of the upper and lower extremities was nonfocal with intact sensation, muscle stretch reflexes and without focal motor deficits . Roldan?s negative bilaterally. Babinski was down going bilaterally. Clonus was negative. Assessment & Plan Assessment & Plan (1) Complex regional pain syndrome i of left lower limb: Code(s): G90.522 - Complex regional pain syndrome I of left lower limb Category: Medical Plan Her complaints of left leg hypersensitivity, allodynia, and skin changes supports diagnosis of CRPS. Do not see signs of hip intra-articular pathology on exam, she denies groin pain, negative ARIANNA exam. Do not see any signs of lumbar radiculopathy on exam. Her reflexes and strength are still intact despite the pain. Do not have any magic Wand for her, we had honest discussion about CRPS. She has been think of coming off gabapentin. She is on maximum 3600 mg per day. I can support the plan to gradually slowly go down on the dose, which would help her see if gabapentin actually helps her or not, and find the best dose that does. She can discuss with PCP about best dose for duloxetine to help with both anxiety and pain. Would not recommend any nonemergent surgery or injection, or even EMG, on the left lower leg which may cause further trauma that can worsen CRPS. I am curious about the MRI hip that PCP ordered, she would let us know the results, and we can see whether she needs to follow with orthopedics or not Assessment and plan discussed with patient, and patient was agreeable. All questions were answered thoroughly. Total of 45 minute spent today including chart review, results review, history taking, physical examination, discussion of assessment and plan, and coordination of care. Adilene Linton MD, HAL Board Certified, [place] Board of Physical Medicine and Rehabilitation (ABPMR) Board Certified, [place] Board of Electrodiagnostic Medicine (ABEM) Coding Level of Care Code New Pt Level 4 (49320) Diagnoses Complex regional pain syndrome i of left lower limb G90.522
--- OUTSIDE RECORDS SUMMARY | 2025-03-08 08:35 | XMS_ITS | Encounter Summary ---
Author Organization [facility] Address [address] [place] [address] Care Team Providers Care Electrician Maintenance Name Role Phone Hayden Man MD Primary Care Provider [phone] Maggy Swartz MD Unavailable [phone] Encounter Details Date Type Department Care Team (Late st Contact Info) Description 07/22/[address] [facility] Neurosurgery [place] [address] [phone] Maggy Swartz MD [address] [address] Social History Tobacco Use Types Packs/Day Years [...] on filedocumented in this encounter Care Teams Electrician Maintenance Relationship Specialty Start Date End Date Hayden Man MD [address] [place] [address] [place] [address] PCP - General Internal Medicine 05/06/20 Maggy Swartz MD [address] [place] [address] Surgery, Neurosurgery 08/20/20 documented as of this encounter
--- OUTSIDE RECORDS SUMMARY | 2025-03-08 08:35 | XMS_ITS | Encounter Summary ---
Author Organization [facility] Address [address] [place] [address] Care Team Providers Care Tax Consultant Name Role Phone Hayden Man MD Primary Care Provider [phone] Maggy Swartz MD Unavailable [phone] Encounter Details Date Type Department Care Team (Late st Contact Info) Description 09/11/2021 Scanned Document [facility] Neurosurgery [place] [address] [phone] Magyg Swartz MD [address] [address] Social History Tobacco Use Types Packs/Day Years [...] on filedocumented in this encounter Care Teams Tax Consultant Relationship Specialty Start Date End Date Hayden Man MD [address] [place] [address] [place] [address] PCP - General Internal Medicine 05/06/20 Maggy Swartz MD [address] [place] [address] Surgery, Neurosurgery 08/20/20 documented as of this encounter
--- OUTSIDE RECORDS SUMMARY | 2025-03-08 08:36 | XMS_ITS | Encounter Summary ---
Author Organization [facility] Address [address] [place] [address] Care Team Providers Care Journeyman Glazier Name Role Phone Hayden Man MD Primary Care Provider [phone] Maggy Swartz MD Unavailable [phone] Reason for Visit * Reason Comments Other Encounter Details Date Type Department Care Team (Late st Contact Info) Description 04/03/2021 Telephone [facility] Urologic Surgery [address] [phone] Hardik Reese MD [address] [place] [address] Other Social History Tobacco Use Types [...] Ct abdomen with and without contrast to [facility]. documented in this encounter Plan of Treatment Not on file documented as of this encounter Visit Diagnoses Not on filedocumented in this encounter Care Teams Journeyman Glazier Relationship Specialty Start Date End Date Hayden Man MD [address] [place] [address] 101 [place] [address] PCP - General Internal Medicine 05/06/20 Maggy Swartz MD [address] [place] [address] Surgery, Neurosurgery 08/20/20 documented as of this encounter
--- OUTSIDE RECORDS SUMMARY | 2025-03-08 08:36 | XMS_ITS | Encounter Summary ---
Author Organization [facility] Address [address] [place] [address] Care Team Providers Care Human Resources Benefits Administrator Name Role Phone Hayden Man MD Primary Care Provider [phone] Maggy Swartz MD Unavailable [phone] Encounter Details Date Type Department Care Team (Late st Contact Info) Description 03/24/2021 Scanned Document [facility] Neurosurgery [address] [phone] Bibi Maza PA Valid Address [...] filedocumented in this encounter Care Teams Human Resources Benefits Administrator Relationship Specialty Start Date End Date Hayden Man MD [address] [place] [address] [place] [address] PCP - General Internal Medicine 05/06/20 Maggy Swartz MD [address] [place] [address] Surgery, Neurosurgery 08/20/20 documented as of this encounter
--- OUTSIDE RECORDS SUMMARY | 2025-03-08 08:36 | XMS_ITS | Encounter Summary ---
Author Organization [facility] Address [address] [place] [address] Care Team Providers Care Boiler House Operator Name Role Phone Hayden Man MD Primary Care Provider [phone] Maggy Swartz MD Unavailable [phone] Reason for Visit * Reason Comments Other needs crea ordered Encounter Details Date Type Department Care Team (Late st Contact Info) Description 12/12/2020 Telephone [facility] Urologic Surgery [address] [phone] Hardik Reese MD [address] [place] [address] Other (needs crea ordered) Social History [...] PO contrast. I advised I would contact [facility] radiology as we do notuse PO contrast for the CT scan of the abdomen. She is getting her labs done today. * Telephone Encounter - Jacoby East LPN - 12/12/2020 2:42 PM EST Order for creatinine to be drawn at [facility]. documented in this encounter Plan of Treatment Not on file documented as of this encounter Visit Diagnoses Not on filedocumented in this encounter Care Teams Boiler House Operator Relationship Specialty Start Date End Date Po, Hayden Serrano MD [address] [place] [address] Dr Vo [address] [place] [address] PCP - General Internal Medicine 05/06/20 Maggy Swartz MD [address] [place] [address] Surgery, Neurosurgery 08/20/20 documented as of this encounter
--- OUTSIDE RECORDS SUMMARY | 2025-03-08 08:36 | XMS_ITS | Encounter Summary ---
Author Organization [facility] Address [address] [place] [address] Care Team Providers Care Content Curator Name Role Phone Hayden Man MD Primary Care Provider [phone] Maggy Swartz MD Unavailable [phone] Encounter Details Date Type Department Care Team (Late st Contact Info) Description 02/02/2021 Scanned Document [facility] Neurosurgery [place] [address] [phone] Maggy Swartz MD [address] [address] Social History Tobacco Use Types Packs/Day Years [...] on filedocumented in this encounter Care Teams Content Curator Relationship Specialty Start Date End Date Hayden Man MD [address] [place] [address] [place] [address] PCP - General Internal Medicine 05/06/20 Maggy Swartz MD [address] [place] [address] Surgery, Neurosurgery 08/20/20 documented as of this encounter
--- OUTSIDE RECORDS SUMMARY | 2025-03-08 08:36 | XMS_ITS | Encounter Summary ---
Author Organization [address] [address] Care Team Providers Care Maintenance And Engineering Manager Name Role Phone Hayden Man MD Primary Care Provider [phone] Maggy Swartz MD Unavailable [phone] Encounter Details Date Type Department Care Team (Late st Contact Info) Description 09/17/2020 Scanned Document [facility] Neurosurgery [place] 85 [facility] [address] [place] [phone] Maggy Swartz MD 85 [facility] [place] [address] [place] [address] Social History Tobacco Use Types Packs/Day Years [...] filedocumented in this encounter Care Teams Maintenance And Engineering Manager Relationship Specialty Start Date End Date Hayden Man MD [address] [place] [address] Dr Vo [address] [place] [address] PCP - General Internal Medicine 05/06/20 Maggy Swartz MD [address] [place] [address] Surgery, Neurosurgery 08/20/20 documented as of this encounter
--- OUTSIDE RECORDS SUMMARY | 2025-03-08 08:36 | XMS_ITS | Encounter Summary ---
Author Organization [facility] Address [address] [place] [address] Care Team Providers Care Senior It Project Manager Name Role Phone Hayden Man MD Primary Care Provider [phone] Maggy Swartz MD Unavailable [phone] Reason for Visit * Reason Comments Medication Refill Encounter Details Date Type Department Care Team (Late st Contact Info) Description 09/27/2020 Refill [facility] [address] [place] [phone] Bibi Maza PA Valid Address Needed Lumbar [...] myelopathy documented in this encounter Care Teams Senior It Project Manager Relationship Specialty Start Date End Date Hayden Man MD [address] [place] [address] [address] [place] [address] PCP - General Internal Medicine 05/06/20 Maggy Swartz MD [address] [place] [address] Surgery, Neurosurgery 08/20/20 documented as of this encounter
--- OUTSIDE RECORDS SUMMARY | 2025-03-08 08:36 | XMS_ITS | Clinical Summary ---
Author Organization [facility]ly [facility] Address [address] [place] [address] Care Team Providers Care Marketing Assistant Manager Name Role Phone Hayden Man MD Primary Care Provider [phone] Maggy Swartz MD Unavailable [phone] Allergies No known active allergies Medications [...] Zoster (Shingles) Vaccine (1 of 2) 2012 COVID-19 Vaccine ( - 2023-2 5 season) 2024 Influenza Vaccine 05/31/2025 08/26/2019 RSV Vaccine 60 years and old er and Patients (1 - 1-dose 75+ series) 2037 Hepatitis B Vaccines Aged Out No long er eligible based on patient's age to complete this topic Medical Devices Implanted Type Area Report Specialist Device Identifier Shelf Expiration Date Model / Serial / Lot [id number] Spacer Spinal [id number] Cpstn Peek Ptc Lmbr Intrbd Fs Sterl - [id number] Implanted:Qty: 1 on 09/08/2020 by Maggy Swartz MD at [facility] Cage N/A: Spine Lumbar [employer] 10/20/2026 [id number] / / [id number] Ashok Spinal 70mm 5.5mm Cd Hzn Crv Ti Cp4 Nonst - [id number] Implanted:Qty: 2 on 09/08/2020 by Maggy Swartz MD at [facility] Nail/Ashok N/A: Spine Lumbar [employer] [id number] / / [id number] Screw Bone Spine Solera Cd Hzn 40mm Cocr 5.5mm Ma Nonst 5.5 - [id number] Implanted:Qty: 2 on 09/08/2020 by Maggy Swartz MD at [facility] Spine N/A: Spine Lumbar [employer] [id number] / / [id number] Screw Bone Spine Cd Hzn Solera 45mm Ti Cocr 5.5mm Ma Nonst - [id number] Implanted:Qty: 4 on 09/08/2020 by Maggy Swartz MD at [facility] Spine N/A: Spine Lumbar [employer] [id number] / / [id number] Screw Set Ti Spine Brk Off Cd Hzn Nonst 5.5 Mm Ashok - [id number] Implanted:Qty: 6 on 09/08/2020 by Maggy Swartz MD at [facility] Spine N/A: Spine Lumbar [employer] [id number] / / [id number] Filler Bone Void 10cc Dbx Algrf Frzdr Putty - [id number] Implanted:Qty: 1 on 09/08/2020 by Maggy Swartz MD at [facility] Void Filler N/A: Spine Lumbar [employer] 03/19/2022 [id number] / [id number] / [id number] Filler Bone Void 10cc Dbx Algrf Frzdr Putty - [id number] Implanted:Qty: 1 on 09/08/2020 by Maggy Swartz MD at [facility] Void Filler N/A: Spine Lumbar [employer] 12/13/2021 [id number] / [id number] / [id number] Filler Bone Void 10cc Dbx Algrf Frzdr Putty - [id number] Implanted:Qty: 1 on 09/08/2020 by Maggy Swartz MD at [facility] Void Filler N/A: Spine Lumbar [employer] 03/19/2022 [id number] / [id number] / Insurance [facility] Advance Directives * Full Code [...] 8:24 AM 06/25/2020 3:59 PM Care Teams Marketing Assistant Manager Relationship Specialty Start Date End Date Po, Hayden Serrano MD [address] [place] [address] [address] [place] [address] PCP - General Internal Medicine 05/06/20 Maggy Swartz MD [address] [place] [address] Surgery, Neurosurgery 08/20/20
--- OUTSIDE RECORDS SUMMARY | 2025-03-08 08:36 | XMS_ITS | Encounter Summary ---
Author Organization [facility] Address [address] [place] [address] Care Team Providers Care Hairspring Studder Name Role Phone Hayden Man MD Primary Care Provider [phone] Maggy Swartz MD Unavailable [phone] Encounter Details Date Type Department Care Team (Late st Contact Info) Description 02/02/2021 Scanned Document [facility] Neurosurgery [place] [address] [phone] Maggy Swarzt MD [address] [address] Social History Tobacco Use Types Packs/Day Years [...] on filedocumented in this encounter Care Teams Hairspring Studder Relationship Specialty Start Date End Date Hayden Man MD [address] [place] [address] [place] [address] PCP - General Internal Medicine 05/06/20 Maggy Swartz MD [address] [place] [address] Surgery, Neurosurgery 08/20/20 documented as of this encounter
--- OUTSIDE RECORDS SUMMARY | 2025-03-08 08:36 | XMS_ITS | Encounter Summary ---
Author Organization [address] [address] Care Team Providers Care Guest Relations Manager Name Role Phone Hayden Man MD Primary Care Provider [phone] Maggy Swartz MD Unavailable [phone] Encounter Details Date Type Department Care Team (Late st Contact Info) Description 08/22/2020 Scanned Document [facility] Neurosurgery [place] [address] [facility] [address] [place] [phone] Maggy Swartz MD [address] [facility] [place] [address] [place] [address] Social History Tobacco Use Types Packs/Day Years [...] on filedocumented in this encounter Care Teams Guest Relations Manager Relationship Specialty Start Date End Date Hayden Man MD [address] [place] [address] [address] [place] [address] PCP - General Internal Medicine 05/06/20 Maggy Swartz MD [address] [place] [address] Surgery, Neurosurgery 08/20/20 documented as of this encounter
== END 2025-03-08 09:07 | disposition home or self-care (01) ==
LOC: HO.HOS 08:25
PROVIDERS: PCP Internal Medicine; Visit Provider Physical Medicine & Rehabilitation
DX: G90.522 Complex regional pain syndrome I of left lower limb (principal)
CPT/HCPCS: 99204

== ENCOUNTER → 2025-03-08 08:24 | Outpatient (BNVA) | payer MEDICARE, MEDICAID, SELFPAY | PROVIDERS: PCP Internal Medicine; Visit Provider Physical Medicine & Rehabilitation | DX: G90.522 Complex regional pain syndrome I of left lower limb (principal) | CPT/HCPCS: 99202 ==

== ENCOUNTER 2025-04-01 15:00 | Outpatient (AMB) | payer MEDICARE, MEDICAID, SELFPAY ==
[2025-04-01 15:05] VITALS: BP 128/76; PULSE 81; O2SAT 98; BMI 28.8
--- NOTE | 2025-04-01 15:05 | MHC.PC.OV ---
Vital Signs 04/01/25 15:05 Height 5 ft 5 in Weight 173 lb BMI 28.8 BP 128/76 Blood Pressure Location Lt brachial Position Sitting Pulse 81 Pulse Source Pulse Oximeter Pulse Oximetry (%) 98 Oxygen Delivery Method Room Air Intake Visit Reasons: HIP MRI and left leg request Allergies No Known Allergies [No Known Allergies*] Allergy (Verified 04/01/25 15:06) Tobacco use date assessed: 01/22/25 Dental Screening Dental Screen Date: 01/22/25 [facility] Medical History Breast cancer screening by mammogram Generalized anxiety disorder Left leg paresthesias Bacterial vaginosis Anxiety Opioid use disorder Chronic pain syndrome Postlaminectomy syndrome Complex regional pain syndrome i of left lower limb Primary osteoarthritis of left knee Tobacco abuse Renal lesion Closed left ankle fracture Cervical disc herniation Hypothyroidism Surgical History Hx of cervical discectomy H/O colonoscopy H/O lumbar discectomy Spinal stenosis History of left knee surgery Left ACL tear Family History Father No problems noted. 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 1. Little interest or pleasure in doing things: not at all 2. Feeling down, depressed, or hopeless: not at all 3. Trouble falling or staying asleep, or sleeping too much: not at all 4. Feeling tired or having little energy: not at all 5. Poor appetite or overeating: not at all 6. Feeling bad about yourself - or that you are a failure or have let yourself or your family down: not at all 7. Trouble concentrating on things, such as reading the newspaper or watching television: not at all 8. Moving or speaking so slowly that other people could have noticed. Or the opposite - being so fidgety or restless that you have been moving around a lot more than usual: not at all 9. Thoughts that you would be better off or of hurting yourself in some way: not at all Total score: 0 Depression Screening Interpretation: Negative Depression Screening Done: Yes Source: Developed by Drs. Tai Viramontes, Sherlyn Garza, Stalin Guerra and colleagues, with an educational marcie from [employer]. Thrive Questionnaire Date Thrive assessed: 03/26/25 I am a: Patient What is your living situation today?: I have a steady place to live Within the past 12 months, did the food you bought not last and you didn't have the money to get more?: Never true Within the past 12 months, did you worry whether your food would run out before you got money to buy more?: Never true Do you have trouble paying for medicines?: No Do you have trouble getting transportation to medical appointments?: No Do you have trouble paying your heating and electricity bill?: No Do you have trouble taking care of your child, family member or friend?: No Do you have trouble with day-to-day activities such as bathing, preparing meals, shopping, managing finances, etc.?: No Are you currently unemployed and looking for a job?: No Are you interested in more education?: No Please select the resources that you would like help with: Paying for medicine Currently or been in a relationship where the following occur: No concerns reported THRIVE Score: 0 AUDIT C Alcohol Use Questionnaire (AUDIT-C) 1. How often do you have a drink containing alcohol?: 2-3 times a week 2. How many drinks containing alcohol do you have on a typical day when you are drinking?: 1 or 2 3. How often do you have six or more drinks on one occasion?: Never Total Score: 3 JESSICA-7 AMB Questionnaire JESSICA-7 Date JESSICA - 7 assessed: 01/22/25 Feeling nervous, anxious, or on edge: 1 = Several days Not being able to stop or control worryin = Not at all Worrying too much about different things: 0 = Not at all Trouble relaxin = Not at all Being so restless that it is hard to sit still: 0 = Not at all Becoming easily annoyed or irritable: 0 = Not at all Feeling afraid as if something awful might happen: 0 = Not at all Total JESSICA-7 score (0-4 normal; 5-9 mild; 10-14 moderate; 15-21 severe): 1 Source: Developed by Drs. Tai Viramontes, Sherlyn Garza, Stalin Guerra and colleagues, with an educational marcie from [employer]. Physical exam (Primary Care) Vital Signs: Last Vital Signs Pulse 81 04/01/25 15:05 BP 128/76 04/01/25 15:05 Pulse Ox 98 04/01/25 15:05 Oxygen Delivery Method Room Air 04/01/25 15:05 BMI result Body Mass Index 28.8 Tobacco/Smoking Status: Tobacco use Status Tobacco use date assessed 01/22/25 04/01/25 15:10 Patient Tobacco Use Status Former Tobacco user 04/01/25 15:10 Tobacco use type Cigarette 04/01/25 15:10 e-Cigarette/Vaping Use Currently Using 04/01/25 15:10 PHQ-9: PHQ-9 Score PHQ-9: Total score 0 04/01/25 15:10 Depression Screening Interpretation: Negative Thrive Assessment: Date of Thrive Assessment Date Thrive assessed 03/26/25 04/01/25 15:10 Currently or been in a relationship where the following occur: No concerns reported Const General: alert; No acute distress Eyes Conjunctivae: conjunctivae normal Resp Auscultation: clear to auscultation bilaterally Cardio Rate: regular rate Rhythm: regular rhythm GI Inspection: Yes normal to inspection Coding Level of Care Code Est Pt Level 4 (69056) Diagnoses Distal radius fracture, left S52.532A Encounter type: initial encounter Fracture morphology: Colles' Fracture type: closed Generalized anxiety disorder F41.1 Complex regional pain syndrome i of left lower limb G90.522 Tobacco abuse Z72.0 Acquired hypothyroidism E03.9 Hypothyroidism type: acquired Finger numbness R20.0 Assessment & Plan Assessment & Plan (1) Distal radius fracture, left: Comment: Status post ORIF January 2025 Code(s): S52.502A - Unspecified fracture of the lower end of left radius, initial encounter for closed fracture Category: Medical Qualifiers: Encounter type: initial encounter Fracture morphology: Colles' Fracture type: closed Qualified Code(s): S52.532A - Colles' fracture of left radius, initial encounter for closed fracture Plan: Patient continues to follow-up with orthopedics. Status post ORIF January 2025 (2) Generalized anxiety disorder: Code(s): F41.1 - Generalized anxiety disorder Category: Medical Plan: Continue with present medication of duloxetine and alprazolam as needed (3) Complex regional pain syndrome i of left lower limb: Code(s): G90.522 - Complex regional pain syndrome I of left lower limb Category: Medical Plan: Patient follows up with pain management but has not had any luck with relief. Patient has had a request for left hip MRI both from my side and the pain management side but was rejected by insurance/not covered for workmans comp. Patient states wants the MRI requested again to see if it would go through her personal insurance. (4) Tobacco abuse: Comment: Quitting discussed She declined Chantix or nicotine patch stopped 10/2023 Doing vapes Code(s): Z72.0 - Tobacco use Category: Medical Plan: Patient was advised to stop using the vapes also. (5) Hypothyroidism: Code(s): E03.9 - Hypothyroidism, unspecified Category: Medical Qualifiers: Hypothyroidism type: acquired Qualified Code(s): E03.9 - Hypothyroidism, unspecified Plan: Continue with thyroid medication (6) Finger numbness: Comment: right side 02/2025 Code(s): R20.0 - Anesthesia of skin Category: Medical Plan: declined work up for now Plan History of Present Illness The patient is a 64-year-old female presenting for follow-up concerning her Chronic Regional Pain Syndrome of the left lower extremity and postoperative recovery. The patient has suffered from chronic low back pain radiating to the left hip and leg, with previous nerve blocks and sympathectomy providing limited relief. 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 An MRI has revealed a Grade 2 stress reaction in the tibial diaphysis without a fracture. She further experiences Carpal Tunnel Syndrome symptoms in her right hand, noticed while seated, particularly affecting her first two fingers. Her overall condition is complex, involving Generalized Anxiety Disorder and Hypothyroidism, both under treatment with duloxetine and thyroid medication, respectively. She is also recovering from a left distal radial ORIF due to an January 2025 injury and follows regular orthopedic care for the same. As a smoker, she has been advised on the negative implications of tobacco use. 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 - Previous wrist injury, status post-surgery, with ongoing orthopedic consultations Review of Systems - Musculoskeletal: Reports low back pain radiating to left hip and leg - Neurological: Reports right-hand numbness in the first two fingers, suggests Carpal Tunnel Syndrome - Psychological: Anxiety well-documented, managed with alprazolam and duloxetine - Reports no additional systems affected Physical Exam Results - MRI: Grade 2 stress reaction, mid-distal tibial diaphysis - Recent blood work (December 2024): Normal blood count, normal electrolytes, normal renal function Plan For Chronic Regional Pain Syndrome, we will continue duloxetine management while addressing orthopedic consultation needs. Her Carpal Tunnel Syndrome symptoms will be managed with hand splints and monitoring. Smoking cessation is strongly encouraged. Current anxiety and hypothyroidism treatments will continue. Follow-up with orthopedics remains necessary for prior wrist surgery recovery. Patient was informed and verbally consented to the use of an ambient scribe for clinic note documentation during this visit. Discussion Notes I have engaged in extensive discussions regarding her Chronic Regional Pain Syndrome, suggesting continued duloxetine therapy and monitoring back pain progression with orthopedic evaluation. For her mild Carpal Tunnel Syndrome, using a splint at night was proposed, with vigilance for symptom changes. Smoking cessation was prioritized. We discussed her current medication regimen for anxiety and hypothyroidism, emphasizing the importance of adherence. I explained the implications of her past MRI findings and elaborated on symptom management strategies. We agreed on the importance of following up with orthopedics for her left distal radial ORIF, and I highlighted the need to report any exacerbation of symptoms promptly. Patient Instructions - Continue duloxetine therapy as prescribed - Wear hand splint at night to manage wrist numbness - Avoid smoking and vaping products - Follow up with orthopedics as scheduled - Monitor for any increased pain or changes in symptoms - Maintain current anxiety and thyroid medications Orders: Orders MR hip LT wo con Today G90.522 - Complex regional pain syndrome I of left lower limb
--- OUTSIDE RECORDS SUMMARY | 2025-04-01 16:18 | XMS_ITS | Encounter Summary ---
Author Organization [facility] Address [address] [place] [address] Care Team Providers Care Value Analyst Name Role Phone Hayden Man MD Primary Care Provider [phone] Maggy Swartz MD Unavailable [phone] Encounter Details Date Type Department Care Team (Late st Contact Info) Description 07/22/2021 Scanned Document [facility] Neurosurgery [place] [address] [phone] Maggy Swartz MD [address] [address] Social History Tobacco Use Types Packs/Day Years [...] on filedocumented in this encounter Care Teams Value Analyst Relationship Specialty Start Date End Date Hayden Man MD [address] [place] [address] [place] [address] PCP - General Internal Medicine 05/06/20 Maggy Swartz MD [address] [place] [address] Surgery, Neurosurgery 08/20/20 documented as of this encounter
== END 2025-04-01 15:27 | disposition home or self-care (01) ==
LOC: HO.HMCH 15:01
PROVIDERS: PCP Internal Medicine; Visit Provider Internal Medicine
DX: E03.9 Hypothyroidism, unspecified (principal); G90.522 Complex regional pain syndrome I of left lower limb; F41.1 Generalized anxiety disorder; S52.532A Colles' fracture of left radius, initial encounter for closed fracture; Z72.0 Tobacco use; R20.0 Anesthesia of skin

== ENCOUNTER → 2025-04-01 15:00 | Outpatient (BNVA) | payer MEDICARE, MEDICAID, SELFPAY | PROVIDERS: PCP Internal Medicine; Visit Provider Internal Medicine | DX: S52.532D Colles' fracture of left radius, subsequent encounter for closed fracture with routine healing (principal); F41.1 Generalized anxiety disorder; G90.522 Complex regional pain syndrome I of left lower limb; E03.9 Hypothyroidism, unspecified; R20.0 Anesthesia of skin; Z72.0 Tobacco use | CPT/HCPCS: 99212 ==

== ENCOUNTER 2025-04-03 08:22 | Outpatient (AMB) | payer MEDICARE, MEDICAID, SELFPAY ==
--- OUTSIDE RECORDS SUMMARY | 2025-04-03 08:30 | XMS_ITS | Encounter Summary ---
Author Organization [facility] Address [address] [place] [address] Care Team Providers Care Coat Fitter Name Role Phone Hayden Man MD Primary Care Provider [phone] Maggy Swartz MD Unavailable [phone] Encounter Details Date Type Department Care Team (Late st Contact Info) Description 07/22/2021 Scanned Document [facility] Neurosurgery [place] [address] [phone] Maggy Swartz MD [address] [address] Social History Tobacco Use Types Packs/Day Years [...] on filedocumented in this encounter Care Teams Coat Fitter Relationship Specialty Start Date End Date Hayden Man MD [address] [place] [address] Dr [address] Ak[place]ANNES [place] [address] PCP - General Internal Medicine 05/06/20 Maggy Swartz MD [address] [place] [address] Surgery, Neurosurgery 08/20/20 documented as of this encounter
[2025-04-03 08:34] VITALS: BMI 28.8
--- NOTE | 2025-04-03 08:34 | MHC.OFFVIS ---
Vital Signs 04/03/25 08:34 Height 5 ft 5 in Weight 173 lb BMI 28.8 Intake Visit Reasons: PO LT distal radius ORIF 02/14/25 AR Intake Note: Claudia 64 yr old female presents today for her PO LT distal radius ORIF 02/14/25 AR ROM check. Patient States she continues to have limited ROM in extension of the wrist. Allergies No Known Allergies [No Known Allergies*] Allergy (Verified 04/03/25 08:35) HPI HPI PO LT distal radius ORIF 02/14/25 AR: Details: Claudia is a 64 year old right hand dominant woman who returns S/P left distal radius ORIF, DOS: 02/14/25. S/P fall, DOI: 02/09/25. She says she is doing well overall. She continues to have some limited ROM in her wrist, and has been working on ROM exercises at home. She says she has been using her wrist for lightweight daily activities, and may be doing too much . She says she has basically been using her hand like normal. She denies smoking but says she vapes several times daily. She denies any numbness or tingling. She says she fell due to her left leg giving way. 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 She sees Pain Management for this. 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 [facility] Medical History Breast cancer screening by mammogram Generalized anxiety disorder Left leg paresthesias Bacterial vaginosis Anxiety Opioid use disorder Chronic pain syndrome Postlaminectomy syndrome Complex regional pain syndrome i of left lower limb Primary osteoarthritis of left knee Tobacco abuse Renal lesion Closed left ankle fracture Cervical disc herniation Hypothyroidism Surgical History Hx of cervical discectomy H/O colonoscopy H/O lumbar discectomy Spinal stenosis History of left knee surgery Left ACL tear Family History Father No problems noted. 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 Cognitive needs: No Hearing needs: No Vision needs: No Review of Systems Const All systems reviewed & are unremarkable except as noted in HPI and below Physical Exam Vital Signs: BMI result Body Mass Index 28.8 Const General: no acute distress and alert Orientation/consciousness: patient oriented x3 Neuro General: patient oriented x3 Extrem Other: Evaluation of Left Upper Extremity: The patient is alert, oriented, and in no acute distress Neuro: Median, Ulnar, Radial nerves motor and sensory intact and sensation is normal to the tips of all digits Vascular: Cap refill brisk ROM: She can make a fist and extend all her digits, with no pain Nearly symmetrical pronosupination No appreciable swelling Fracture site is still mildly TTP Radiographs: 3 views of the left wrist were taken and viewed by me today in clinic. They show a transverse distal radius fracture with satisfactory fracture alignment, position of all implants. I am concerned that the fracture is still quite visible with minimal if any evidence of interval healing. Psych Appearance: grossly normal Affect: normal affect Attitude: cooperative Assessment & Plan Assessment & Plan (1) Distal radius fracture, left: Comment: Status post ORIF January 2025 Code(s): S52.502A - Unspecified fracture of the lower end of left radius, initial encounter for closed fracture Category: Medical Qualifiers: Encounter type: initial encounter Fracture morphology: Colles' Fracture type: closed Qualified Code(s): S52.532A - Colles' fracture of left radius, initial encounter for closed fracture (2) Recurrent falls: Code(s): R29.6 - Repeated falls Category: Medical (3) Chronic pain syndrome: Code(s): G89.4 - Chronic pain syndrome Category: Medical (4) Tobacco abuse: Comment: Quitting discussed She declined Chantix or nicotine patch stopped 10/2023 Doing vapes Code(s): Z72.0 - Tobacco use Category: Medical Plan Assessment & Plan: 1. Left distal radius fracture, S/P ORIF DOS: 02/14/25 S/P fall, DOI: 02/09/25 Reduced in ED: 02/09/25 The patient appears to be doing well post-operatively I am concerned however that she has little in the way of bony healing on radiographs today, patient reports daily vaping and overuse of her wrist. I discussed putting her in a cast versus another Velcro wrist splint. She very much wants to avoid being placed in a cast and was fitted for a new velcro wrist splint, to be worn like a cast except for showering until we tell her otherwise. I discussed the importance of activity modifications at length. It sounds like she has been using her left hand for numerous activities, and somewhat prematurely. I discussed the fact that she is at risk for a nonunion, possible breakage of screws and possible need for repeat surgery we do not get this to heal soon. She is to lift nothing heavier than a cellphone for the next 4-6 weeks. She is to avoid overusing her wrist like she has been in the previous weeks She will perform gentle ROM exercises at home, she can remove her splint at rest to work on ROM She vapes, and has a hx of frequent falls, CPS, CRPS affecting her LLE, and anxiety disorder I explained the effects of smoking on wound/bone healing, and recommend they stop smoking prior to surgery & while healing. This includes vaping, Marijuana, and other Nicotine products including patches used to help quit. They expressed understanding and will work on reducing her vaping. She will follow up in 5 weeks, with X-rays, 3V L wrist, OOP, sooner if she has any issues. Scribed for Sarahy Ramirez MD by Denis Silva, emergency medical technician, on 04/03/25 at 8:45 AM, EST. Orders: Orders XR wrist LT min 3V Today M25.532 - Pain in left wrist Coding Level of Care Code Global (71063) Diagnoses Distal radius fracture, left S52.532A Encounter type: initial encounter Fracture morphology: Colles' Fracture type: closed Recurrent falls R29.6 Chronic pain syndrome G89.4 Tobacco abuse Z72.0
== END 2025-04-03 09:04 | disposition home or self-care (01) ==
LOC: HO.HOS 08:23
PROVIDERS: PCP Internal Medicine; Visit Provider Orthopaedic Surgery
DX: S52.532A Colles' fracture of left radius, initial encounter for closed fracture (principal); R29.6 Repeated falls; G89.4 Chronic pain syndrome; Z72.0 Tobacco use
CPT/HCPCS: 99024

== ENCOUNTER → 2025-04-03 08:24 | Outpatient (BNV) | payer MEDICARE, MEDICAID, SELFPAY | PROVIDERS: Visit Provider Radiology Diagnostic Radiology | DX: S52.592D Other fractures of lower end of left radius, subsequent encounter for closed fracture with routine healing (principal) | CPT/HCPCS: 73110 ==

== ENCOUNTER 2025-04-03 09:24 | Outpatient (REF) | payer MEDICARE, MEDICAID, SELFPAY ==
--- NOTE | ~2025-04-03 | XR_ITS ---
EXAMINATION: XR WRIST, LEFT CLINICAL INFORMATION: M25.532 - Pain in left wrist COMPARISON: February 26, 2025 TECHNIQUE: PA, lateral, and oblique views of the left wrist. FINDINGS: Volar plate and screws fix a distal radial fracture. Hardware is intact. There is no abnormal lucency at bone metal interfaces. Fracture line remains visible in the metaphysis. There is bony resorption around the fracture line consistent with early healing. XR/XR wrist LT min 3V IMPRESSION: ORIF distal left radial fracture with early healing. Electronically signed by: Jesus Mackenzie MD 04/03/2025 05:24 PM EDT
--- OUTSIDE RECORDS SUMMARY | 2025-04-04 10:17 | XMS_ITS | Encounter Summary ---
Author Organization [facility] Address [address] [place] [address] Care Team Providers Care Canary Breeder Name Role Phone Hayden Man MD Primary Care Provider [phone] Maggy Swartz MD Unavailable [phone] Encounter Details Date Type Department Care Team (Late st Contact Info) Description 07/22/2021 Scanned Document [facility] Neurosurgery [place] [address] [address] Maggy Swartz MD [address] [address] Social History Tobacco Use Types Packs/Day Years [...] on filedocumented in this encounter Care Teams Canary Breeder Relationship Specialty Start Date End Date Hayden Man MD [address] [place] [address] Dr Vo Vida AkersYOHANNES [place] [id number] PCP - General Internal Medicine 05/06/20 Maggy Swartz MD [address] [place] [id number] Surgery, Neurosurgery 08/20/20 documented as of this encounter
== END 2025-04-03 09:25 | disposition home or self-care (01) ==
LOC: HO.HOSX 09:24
PROVIDERS: Visit Provider Orthopaedic Surgery
DX: M25.532 Pain in left wrist (principal); S52.532A Colles' fracture of left radius, initial encounter for closed fracture; R29.6 Repeated falls; G89.4 Chronic pain syndrome; Z72.0 Tobacco use
CPT/HCPCS: 73110; 99212

== ENCOUNTER 2025-04-15 18:16 | Outpatient (REF) | payer MEDICARE, MEDICAID, SELFPAY ==
--- NOTE | ~2025-04-15 | MR_ITS ---
EXAMINATION: MR HIP WITHOUT CONTRAST, LEFT CLINICAL INFORMATION: Left lower extremity injury. Common peroneal nerve dysfunction. COMPARISON: None available. TECHNIQUE: MRI of the left hip was obtained using routine sequences on a high-field magnet. FINDINGS: Bone marrow inhomogeneity. No bone marrow STIR signal abnormality. The coxofemoral joints demonstrate no volume loss or signal abnormality. There is preservation of the joint space. There is no joint effusion. No signal abnormality within the muscles. Nonspecific mildly prominent lymph nodes, inguinal regions. Paramagnetic field distortion secondary to hardware in the lower lumbar spine. Fluid-filled bladder. Normal flow void signal within the included vessels. The fat planes demonstrated no gross masses or fluid collection. MR/MR hip LT wo con IMPRESSION: No acute fracture or dislocation. Osteopenia versus osteoporosis. Electronically signed by: Lucio Forbes MD 04/16/2025 07:21 AM EDT
--- NOTE | ~2025-04-15 | MR_ITS ---
CLINICAL HISTORY: Common peroneal nerve dysfunction, lt lower extremity, injury MRI of the left tibia without intravenous contrast. Comparison: DX - XR TIBIA FIBULA LT 2V - 12/31/24 14:03 EST Findings: Large egrom-ig-xaxy imaging on the coronal images was performed to visualized both calves. The sagittal axial images were performed through the left calf. No concerning bone marrow signal alteration. Specifically, no edema, fracture, periosteal reaction of the left tibia or fibula. No focal areas of muscle edema or atrophy. No abnormality of the common peroneal nerve, superficial peroneal nerve, or deep peroneal nerve is evident. No mass lesion seen in the region of the fibular head and neck. No soft tissue lesions are seen within that area. Relatively minor induration within the subcutaneous fat. Impression: Negative MRI of the left calf. No imaging explanation for the patient's common peroneal nerve dysfunction. This document has been electronically signed by: Kwadwo Shearer MD on 04/17/2025 08:41:16
--- NOTE | ~2025-04-15 | MR_ITS ---
CLINICAL HISTORY: Common peroneal nerve dysfunction, lt lower extremity, injury MR left knee without gadolinium Comparison: None provided Findings: No acute fracture or pathologic bone lesion. There is moderate chondromalacia patella particularly superiorly at the confluence of the lateral and medial patellar facets. There is a small patellofemoral joint effusion. Anterior and posterior cruciate ligaments are intact. Collateral ligaments are intact. Patellar retinacula and iliotibial band are intact. There is soft tissue edema anterior to the patellar tendon. The tendon is otherwise intact and demonstrates normal signal. There is no evidence of an acute meniscal tear. There are no acute abnormalities of the common peroneal nerve and its branches. The nerves are best seen on the sagittal T1 weighted images. This demonstrates normal signal intensity. There is no evidence of denervation edema. There is a small Rios's cyst. IMPRESSION: 1. Small joint effusion. 2. Small Rios's cyst. 3. Chondromalacia patella. 4. No evidence of common peroneal nerve pathology. This document has been electronically signed by: Avi Braxton MD on 04/18/2025 10:26:01
--- NOTE | ~2025-04-15 | MR_ITS ---
CLINICAL HISTORY: Common peroneal nerve dysfunction, lt lower extremity, injury MRI of the left femur without contrast. Comparison: Findings: The examination demonstrates normal bone marrow signal. The soft tissues and musculature are unremarkable. There is no evidence of denervation edema. The visualized nerves demonstrate no acute abnormalities. The vasculature is unremarkable. Impression: No acute process. No evidence of nerve pathology. This document has been electronically signed by: Avi Braxton MD on 04/18/2025 10:53:18
--- OUTSIDE RECORDS SUMMARY | 2025-04-15 18:18 | XMS_ITS | Encounter Summary ---
Author Organization [facility] Address [address] [place] [address] Care Team Providers Care Pound Keeper Name Role Phone Hayden Man MD Primary Care Provider [phone] Maggy Swartz MD Unavailable [phone] Encounter Details Date Type Department Care Team (Late st Contact Info) Description 07/22/2021 Scanned Document [facility] Neurosurgery [place] [address] [address] Maggy Swartz MD [address] [address] Social History Tobacco Use Types Packs/Day Years [...] on filedocumented in this encounter Care Teams Pound Keeper Relationship Specialty [place] Date End Date Hayden Man MD [address] [place] [address] Dr Vo Vida AkersYOHANNES [place] [id number] PCP - General Internal Medicine 05/06/20 Maggy Swartz MD [address] [place] [id number] Surgery, Neurosurgery 08/20/20 documented as of this encounter
== END 2025-04-15 18:17 | disposition home or self-care (01) ==
LOC: HO.MRI 18:16
PROVIDERS: PCP Internal Medicine; Visit Provider Internal Medicine
DX: S84.12XD Injury of peroneal nerve at lower leg level, left leg, subsequent encounter (principal); G90.522 Complex regional pain syndrome I of left lower limb
CPT/HCPCS: 73718; 73721

== ENCOUNTER → 2025-04-15 19:43 | Outpatient (BNV) | payer MEDICARE, MEDICAID, SELFPAY | PROVIDERS: PCP Internal Medicine; Visit Provider Radiology Diagnostic Radiology | DX: M79.662 Pain in left lower leg (principal) | CPT/HCPCS: 73721 ==

== ENCOUNTER 2025-05-07 10:35 | Outpatient (REF) | payer MEDICARE, MEDICAID, SELFPAY | END 2025-05-07 10:36 | disposition home or self-care (01) | LOC: HO.HOSX 10:35 | PROVIDERS: Visit Provider Orthopaedic Surgery | DX: Z13.89 Encounter for screening for other disorder (principal) ==

== ENCOUNTER 2025-05-08 09:25 | Outpatient (REF) | payer MEDICARE, MEDICAID, SELFPAY ==
--- NOTE | ~2025-05-08 | XR_ITS ---
EXAMINATION: XR WRIST 3 OR MORE VIEWS LEFT HISTORY: M25.532 - Pain in left wrist COMPARISON: Comparison is made with the prior examination dated 04/03/2025. FINDINGS: Three views of the left wrist are submitted. The bones are osteopenic. Again seen is internal fixation of a comminuted fracture of the distal radial metaphysis. The fracture lines remain visible. No significant callus formation is noted. The joint spaces are preserved. The soft tissues are unremarkable. XR/XR wrist LT min 3V IMPRESSION: Internally fixed comminuted fracture of the distal radial metaphysis without significant change. Electronically signed by: Tai Russell MD 05/08/2025 09:42 AM EDT
--- OUTSIDE RECORDS SUMMARY | 2025-05-08 09:59 | XMS_ITS ---
Author Name [facility] History of Medication Use Medication Directions Dispensed Refills Start Date End Date Stat DULoxetine (CYMBALTA) 60 MG capsule 09/19/2022 active pregabalin (LYRICA) 75 MG capsule Take 1 capsule (75 mg total) by mouth 2 (two) times a day. 06/02/2021 active methylPREDNISolone (MEDROL DOSEPAK) 4 MG tablet follow package directions 10/08/2020 active polyethylene glycol (MiraLax) 17 GM/SCOOP powder Take 17 g by mouth daily. 09/15/2020 active magnesium oxide 400 (241.3 Mg) MG Tab tablet Take 1 tablet (400 mg total) by mouth every morning. Stop on 09/01/2020 active Multiple Vitamin tablet Take 1 tablet by mouth every morning. Stop on 09/01/2020. 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 2020-12-27 [facility] Complex renal cyst active 2021-06-26 [facility] Microscopic hematuria active 2020-12-12 [facility] Spinal stenosis, lumbar region, without neurogenic claudication active 2020-05-24 [facility] Lumbar disc herniation with radiculopathy active 2020-05-24 [facility] Other specified hypothyroidism active [facility] Encounters Encounter Type Encounter Reason Primary Diagnosis Location Date Ambulatory Cyst of kidney, acquired Cyst of kidney, acquired [facility] 09/25/2024 Ambulatory Cyst of kidney, acquired [facility] 09/21/2022 Care Team Organization Name Specialty Phone Email Start Date End [facility] PO,[facility] 09/21/2022 01/16/2025 [facility] 09/21/2022 09/21/2022
== END 2025-05-08 09:26 | disposition home or self-care (01) ==
LOC: HO.HOSX 09:25
PROVIDERS: PCP Internal Medicine; Visit Provider Orthopaedic Surgery
DX: S52.532D Colles' fracture of left radius, subsequent encounter for closed fracture with routine healing (principal); G89.4 Chronic pain syndrome; R29.6 Repeated falls; M25.532 Pain in left wrist; Z72.0 Tobacco use; X58.XXXD Exposure to other specified factors, subsequent encounter
CPT/HCPCS: 73110; 99212

== ENCOUNTER 2025-05-08 09:25 | Outpatient (AMB) | payer MEDICARE, MEDICAID, SELFPAY ==
[2025-05-08 09:42] VITALS: BMI 28.8
--- NOTE | 2025-05-08 09:42 | A.OFFVIS_ITS ---
Vital Signs 05/08/25 09:42 Height 5 ft 5 in Weight 173 lb BMI 28.8 Intake Visit Reasons: PO LT distal radius ORIF 02/14/25 AR Intake Note: Claudia 64 yr old female presents today for her PO LT distal radius ORIF 02/14/25 AR ROM check. At her last visit she was given a velcro wrist brace and was told to treat it as a cast, no heavy lifting more than 2 lbs. Xrays updated in office. Currently states she is oing well, continues to work on ROM and wear brace with activites. Allergies No Known Allergies (No Known Allergies*) Allergy (Verified 05/08/25 09:42) HPI HPI PO LT distal radius ORIF 02/14/25 AR: Details: Claudia is a 64 year old right hand dominant woman who returns S/P left distal radius ORIF, DOS: 02/14/25. S/P fall, DOI: 02/09/25. When seen at last visit there was delayed evidence of interval bony healing. It sounds like she was actively doing too much too soon with her left hand and wrist. She says that she has been wearing her splint and been more careful with her activities. She denies having any pain She denies smoking but says she vapes several times daily. She denies any numbness or tingling. She says she fell due to her left leg giving way. 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 She sees Pain Management for this. 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 [facility] Medical History Breast cancer screening by mammogram Generalized anxiety disorder Left leg paresthesias Bacterial vaginosis Anxiety Opioid use disorder Chronic pain syndrome Postlaminectomy syndrome Complex regional pain syndrome i of left lower limb Primary osteoarthritis of left knee Tobacco abuse Renal lesion Closed left ankle fracture Cervical disc herniation Hypothyroidism Surgical History Hx of cervical discectomy H/O colonoscopy H/O lumbar discectomy Spinal stenosis History of left knee surgery Left ACL tear Family History Father No problems noted. 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 Cognitive needs: No Hearing needs: No Vision needs: No Physical Exam Vital Signs: BMI result Body Mass Index 28.8 Const General: no acute distress and alert Orientation/consciousness: patient oriented x3 Neuro General: patient oriented x3 Extrem Other: Evaluation of Left Upper Extremity: The patient is alert, oriented, and in no acute distress sensation is normal to the tips of all digits Cap refill brisk ROM: She can make a fist and extend all her digits, with no pain Full & symetrical pronosupination Fracture site non-tender Definite leach line where she has been wearing her splint Radiographs: 3 views of the left wrist were taken and viewed by me today in clinic. They show a transverse distal radius fracture with satisfactory fracture alignment, position of all implants, no evidence of loosening, and very little evidence of interval bony healing. Psych Appearance: grossly normal Affect: normal affect Attitude: cooperative Assessment & Plan Assessment & Plan (1) Distal radius fracture, left: Comment: Status post ORIF January 2025 Code(s): S52.502A - Unspecified fracture of the lower end of left radius, initial encounter for closed fracture Category: Medical Qualifiers: Encounter type: initial encounter Fracture morphology: Colles' Fracture type: closed Qualified Code(s): S52.532A - Colles' fracture of left radius, initial encounter for closed fracture (2) Recurrent falls: Code(s): R29.6 - Repeated falls Category: Medical (3) Chronic pain syndrome: Code(s): G89.4 - Chronic pain syndrome Category: Medical (4) Tobacco abuse: Comment: Quitting discussed She declined Chantix or nicotine patch stopped 10/2023 Doing vapes Code(s): Z72.0 - Tobacco use Category: Medical Plan Assessment & Plan: 1. Left distal radius fracture, S/P ORIF DOS: 02/14/25 S/P fall, DOI: 02/09/25 Reduced in ED: 02/09/25 The patient appears to be doing well post-operatively I am concerned however that she still has little in the way of bony healing on radiographs today, patient reports daily vaping and overuse of her wrist. There is currently no evidence of loosening on radiographs She will continue to wear her velcro wrist splint, like a cast except for showering, at night while sleeping, and to work on ROM exercises I ordered a CT scan of her wrist, to better visualize any bony healing She is to avoid overusing her wrist and lift nothing heavier than a cellphone until after we see the results of the CT scan. She vapes, and has a hx of frequent falls, CPS, CRPS affecting her LLE, and anxiety disorder I explained the effects of smoking on wound/bone healing, and recommend they stop smoking prior to surgery & while healing. This includes vaping, Marijuana, and other Nicotine products including patches used to help quit. They expressed understanding and will work on reducing her vaping. She will follow up when completed for review, this should be a 30 minute appointment Scribed for Sarahy Ramirez MD by Denis Silva, medical office assistant instructor, on 05/08/25 at 9:50 AM, EST. Orders: Orders XR wrist LT min 3V Today M25.532 - Pain in left wrist CT wrist LT wo IV con Today S52.532A - Colles' fracture of left radius, initial encounter for closed fracture Coding Level of Care Code Global (19384) Diagnoses Distal radius fracture, left S52.532A Encounter type: initial encounter Fracture morphology: Colles' Fracture type: closed Recurrent falls R29.6 Chronic pain syndrome G89.4 Tobacco abuse Z72.0
--- OUTSIDE RECORDS SUMMARY | 2025-05-08 09:49 | XMS_ITS | Encounter Summary ---
Author Organization [facility] Address [address] [place] [address] Care Team Providers Care Family Services Coordinator Name Role Phone Hayden Man MD Primary Care Provider [phone] Maggy Swartz MD Unavailable [phone] Encounter Details Date Type Department Care Team (Late st Contact Info) Description 07/22/2021 Scanned Document [facility] Neurosurgery [place] [address] [address] Maggy Swartz MD [address] [address] Social History Tobacco Use Types Packs/Day Years [...] on filedocumented in this encounter Care Teams Family Services Coordinator Relationship Specialty Start Date End Date Hayden Man MD [address] [place] [address] [place] [address] PCP - General Internal Medicine 05/06/20 Maggy Swartz MD [address] [place] [phone] Surgery, Neurosurgery 08/20/20 documented as of this encounter
== END 2025-05-08 10:08 | disposition home or self-care (01) ==
LOC: HO.HOS 09:27
PROVIDERS: PCP Internal Medicine; Visit Provider Orthopaedic Surgery
DX: S52.532A Colles' fracture of left radius, initial encounter for closed fracture (principal); R29.6 Repeated falls; G89.4 Chronic pain syndrome; Z72.0 Tobacco use
CPT/HCPCS: 99024

== ENCOUNTER → 2025-05-08 09:32 | Outpatient (BNV) | payer MEDICARE, MEDICAID, SELFPAY | PROVIDERS: PCP Internal Medicine; Visit Provider Radiology Diagnostic Radiology | DX: S52.352A Displaced comminuted fracture of shaft of radius, left arm, initial encounter for closed fracture (principal) | CPT/HCPCS: 73110 ==

== ENCOUNTER 2025-05-15 09:59 | Outpatient (AMB) | payer OTHER, MEDICARE, MEDICAID, SELFPAY ==
[2025-05-15 10:06] VITALS: BP 121/60; PULSE 84; RESP 18; O2SAT 97
--- NOTE | 2025-05-15 10:06 | A.OFFVIS_ITS ---
Vital Signs 05/15/25 10:06 Weight 163 lb BP 121/60 Blood Pressure Location Lt brachial Position Sitting Respiration 18 Pulse 84 Pulse Source Pulse Oximeter Pulse Oximetry (%) 97 Oxygen Delivery Method Room Air Intake Visit Reasons: DRG Stimulation Discussion Bobbin Presser Required: No Allergies No Known Allergies (No Known Allergies*) Allergy (Verified 05/15/25 10:06) HPI Comments Details: Claudia is back in my office to discuss possibility of further treatment. She wants to go for a trial of DRG stimulation to help the pain in the lower back. She has hardware in the back therefore DRG would be better performed with Curonix device. However she needs to go for psychological evaluation again. She had psychological evaluation long time ago. After she will pass through psychological evaluation I will schedule her for Curonix DRG trial left L3 and left L4 foramina. As of her concern about the MRI of the lower extremity unfortunately the insurance company so far was not very responsive to us on the request of approval of this MRI. This was explained to the patient. Her insurance company is [employer]. She continues to complain on severe intractable pain of the left lower extremity. We tried left sciatic nerve block ultrasound-guided and she reports only minimal pain relief about 50% for the 1st hour after the injection. Therefore any stimulation procedures on the sciatic nerve would not be effective to treat her pain. She denied any help from intrathecal pain pump. She insisted on removal of the device. At the [facility] she was getting sympathetic blockade lumbar spine as well as epidural steroid injection. None of those were helpful for her pain. She was subject of spinal cord stimulator trial in the past which was not working for her. She was receiving pain pump which has only bupivacaine as the acting medicine. Multiple opioid and non opioid medications including morphine and fentanyl were tried for her as well as clonidine. None of those medications in the pump helping her pain. Her pain is on posterior surface of the hip and the posterior surface of the lower leg with radiation to the lateral surface of the foot. She requested me to send her for the MRI of the left lower extremity. She is now convinced that her pain is related to Peroneal nerve injury/neuropathy. My experience with sciatic nerve block goes against the steering however I will be happy if MRI will demonstrate any possible lesions of the common superficial or deep peroneal nerves. Prior: under observation with Complex regional pain syndrome of the left lower extremity secondary to previous trauma.? PFSH Medical History Breast cancer screening by mammogram Generalized anxiety disorder Left leg paresthesias Bacterial vaginosis Anxiety Opioid use disorder Chronic pain syndrome Postlaminectomy syndrome Complex regional pain syndrome i of left lower limb Primary osteoarthritis of left knee Tobacco abuse Renal lesion Closed left ankle fracture Cervical disc herniation Hypothyroidism Surgical History Hx of cervical discectomy H/O colonoscopy H/O lumbar discectomy Spinal stenosis History of left knee surgery Left ACL tear Family History Father No problems noted. 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 Cognitive needs: No Hearing needs: No Vision needs: No Review of Systems Const All systems reviewed & are unremarkable except as noted in HPI and below Physical Exam Vital Signs: Last Vital Signs Pulse 84 05/15/25 10:06 Resp 18 05/15/25 10:06 BP 121/60 05/15/25 10:06 Pulse Ox 97 05/15/25 10:06 Oxygen Delivery Method Room Air 05/15/25 10:06 Const General: healthy appearing and comfortable Chest Chest palpation & inspection: normal inspection of the chest Resp Effort & Inspection: normal respiratory effort, able to speak in complete sentences, normal respiratory pattern, no audible wheezes, no cough, respiratory effort not decreased and no grunting Cardio Jugular venous distension: no JVD Extrem Other: She reports awkwardness with walking and relative weakness with dorsiflexion of the left lower extremity left foot. General: Yes no pedal edema and Yes no calf tenderness Assessment & Plan Assessment & Plan (1) Osteoarthritis of left knee: Code(s): M17.12 - Unilateral primary osteoarthritis, left knee Category: Medical Plan: (2) Postlaminectomy syndrome: Code(s): M96.1 - Postlaminectomy syndrome, not elsewhere classified Category: Medical (3) Complex regional pain syndrome i of left lower limb: Code(s): G90.522 - Complex regional pain syndrome I of left lower limb Category: Medical (4) Implantable intrathecal infusion pump present: Code(s): Z96.89 - Presence of other specified functional implants Category: Medical (5) Common peroneal nerve dysfunction: Code(s): S84.10XA - Injury of peroneal nerve at lower leg level, unspecified leg, initial encounter Category: Medical (6) 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 She is requesting if DRG will be acceptable modality of treatment. I explained to her need for psychological evaluation. I gave her brochure of [employer] to pass through psychological evaluation. When she will pass the brochure we will request her insurance company to approve left L3 and L4 DRG stimulation. Patient Instructions: I here by testify that I spent 30 minutes in conversation with this patient as well as planning her care, evaluating prior records and organizing this note. Coding Level of Care Code Est Pt Level 4 (05296) Diagnoses Osteoarthritis of left knee M17.12 Postlaminectomy syndrome M96.1 Complex regional pain syndrome i of left lower limb G90.522 Implantable intrathecal infusion pump present Z96.89 Common peroneal nerve dysfunction S84.10XA Common peroneal nerve dysfunction of left lower extremity S84.12XA
--- OUTSIDE RECORDS SUMMARY | 2025-05-15 10:35 | XMS_ITS | Encounter Summary ---
Author Organization [facility] Address [address] [place] [address] Care Team Providers Care Domestic Violence Advocate Name Role Phone Hayden Man MD Primary Care Provider [phone] Maggy Swartz MD Unavailable [phone] Encounter Details Date Type Department Care Team (Late st Contact Info) Description 07/22/2021 Scanned Document [facility] Neurosurgery [place] [address] [phone] Maggy Swartz MD [address] [address] Social History Tobacco Use Types Packs/Day Years [...] on filedocumented in this encounter Care Teams Domestic Violence Advocate Relationship Specialty Start Date End Date Hayden Man MD [address] [place] [address] Dr Vo Vida AkersYOHANNES rogers [id number] PCP - General Internal Medicine 05/06/20 Maggy Swartz MD [address] [place] [id number] Surgery, Neurosurgery 08/20/20 documented as of this encounter
== END 2025-05-15 10:34 | disposition home or self-care (01) ==
PROVIDERS: PCP Internal Medicine; Visit Provider Anesthesiology
DX: M17.12 Unilateral primary osteoarthritis, left knee (principal); M96.1 Postlaminectomy syndrome, not elsewhere classified; G90.522 Complex regional pain syndrome I of left lower limb; Z96.89 Presence of other specified functional implants; S84.10XA Injury of peroneal nerve at lower leg level, unspecified leg, initial encounter; S84.12XA Injury of peroneal nerve at lower leg level, left leg, initial encounter
CPT/HCPCS: 99214

== ENCOUNTER → 2025-05-15 09:59 | Outpatient (BNVA) | payer MEDICARE, MEDICAID, SELFPAY | PROVIDERS: PCP Internal Medicine; Visit Provider Anesthesiology | DX: M17.12 Unilateral primary osteoarthritis, left knee (principal); M96.1 Postlaminectomy syndrome, not elsewhere classified; G90.522 Complex regional pain syndrome I of left lower limb; S84.10XD Injury of peroneal nerve at lower leg level, unspecified leg, subsequent encounter; S84.12XD Injury of peroneal nerve at lower leg level, left leg, subsequent encounter; Z96.89 Presence of other specified functional implants | CPT/HCPCS: 99212 ==

== ENCOUNTER 2025-05-22 09:43 | Outpatient (AMB) | payer OTHER, SELFPAY ==
[2025-05-22 09:45] VITALS: BP 114/66; PULSE 90; RESP 18; TEMP 36.3; O2SAT 97; BMI 28.3
--- NOTE | 2025-05-22 09:45 | A.OFFPC_ITS ---
Vital Signs 05/22/25 09:45 Height 5 ft 5 in Weight 170 lb 6 oz BMI 28.3 BP 114/66 Blood Pressure Location Rt brachial Position Sitting Respiration 18 Pulse 90 Pulse Source Pulse Oximeter Temp 97.3 F Temp Source Temporal Artery Scan Pulse Oximetry (%) 97 Oxygen Delivery Method Room Air Intake Visit Reasons: complex regional pain syndrome L lower extremety Allergies No Known Allergies (No Known Allergies*) Allergy (Verified 05/22/25 09:48) Tobacco use date assessed: 05/22/25 Dental Screening Dental Screen Date: 05/22/25 Did you have a dental visit in the last 12 months?: Yes Did you have a dental problem in the last 6 months where you did not have access to dental care?: No Was dental information given to patient?: Patient has dentist [facility] Medical History Breast cancer screening by mammogram Generalized anxiety disorder Left leg paresthesias Bacterial vaginosis Anxiety Opioid use disorder Chronic pain syndrome Postlaminectomy syndrome Complex regional pain syndrome i of left lower limb Primary osteoarthritis of left knee Tobacco abuse Renal lesion Closed left ankle fracture Cervical disc herniation Hypothyroidism Surgical History Hx of cervical discectomy H/O colonoscopy H/O lumbar discectomy Spinal stenosis History of left knee surgery Left ACL tear Family History Father No problems noted. 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 1. Little interest or pleasure in doing things: not at all 2. Feeling down, depressed, or hopeless: not at all 3. Trouble falling or staying asleep, or sleeping too much: not at all 4. Feeling tired or having little energy: not at all 5. Poor appetite or overeating: not at all 6. Feeling bad about yourself - or that you are a failure or have let yourself or your family down: not at all 7. Trouble concentrating on things, such as reading the newspaper or watching television: not at all 8. Moving or speaking so slowly that other people could have noticed. Or the opposite - being so fidgety or restless that you have been moving around a lot more than usual: not at all 9. Thoughts that you would be better off or of hurting yourself in some way: not at all Total score: 0 Depression Screening Interpretation: Negative Depression Screening Done: Yes Source: Developed by Drs. Tai Viramontes, Sherlyn Garza, Stalin Gurera and colleagues, with an educational marcie from [employer]. Thrive Questionnaire Date Thrive assessed: 03/26/25 I am a: Patient What is your living situation today?: I have a steady place to live Within the past 12 months, did the food you bought not last and you didn't have the money to get more?: Never true Within the past 12 months, did you worry whether your food would run out before you got money to buy more?: Never true Do you have trouble paying for medicines?: No Do you have trouble getting transportation to medical appointments?: No Do you have trouble paying your heating and electricity bill?: No Do you have trouble taking care of your child, family member or friend?: No Do you have trouble with day-to-day activities such as bathing, preparing meals, shopping, managing finances, etc.?: No Are you currently unemployed and looking for a job?: No Are you interested in more education?: No Please select the resources that you would like help with: Paying for medicine Currently or been in a relationship where the following occur: No concerns reported THRIVE Score: 0 AUDIT C Alcohol Use Questionnaire (AUDIT-C) 1. How often do you have a drink containing alcohol?: 2-3 times a week 2. How many drinks containing alcohol do you have on a typical day when you are drinking?: 1 or 2 3. How often do you have six or more drinks on one occasion?: Never Total Score: 3 JESSICA-7 AMB Questionnaire JESSICA-7 Date JESSICA - 7 assessed: 01/22/25 Feeling nervous, anxious, or on edge: 1 = Several days Not being able to stop or control worryin = Not at all Worrying too much about different things: 0 = Not at all Trouble relaxin = Not at all Being so restless that it is hard to sit still: 0 = Not at all Becoming easily annoyed or irritable: 0 = Not at all Feeling afraid as if something awful might happen: 0 = Not at all Total JESSICA-7 score (0-4 normal; 5-9 mild; 10-14 moderate; 15-21 severe): 1 Source: Developed by Drs. Tai Viramontes, Sherlyn Garza, Stalin Guerra and colleagues, with an educational marcie from [employer]. Physical exam (Primary Care) Vital Signs: Last Vital Signs Temp 97.3 F 05/22/25 09:45 Pulse 90 05/22/25 09:45 Resp 18 05/22/25 09:45 BP 114/66 05/22/25 09:45 Pulse Ox 97 05/22/25 09:45 Oxygen Delivery Method Room Air 05/22/25 09:45 BMI result Body Mass Index 28.3 Tobacco/Smoking Status: Tobacco use Status Tobacco use date assessed 05/22/25 05/22/25 09:49 Patient Tobacco Use Status Former Tobacco user 05/22/25 09:49 Tobacco use type Cigarette 05/22/25 09:49 e-Cigarette/Vaping Use Currently Using 05/22/25 09:49 PHQ-9: PHQ-9 Score PHQ-9: Total score 0 05/22/25 09:57 Depression Screening Interpretation: Negative Thrive Assessment: Date of Thrive Assessment Date Thrive assessed 03/26/25 05/22/25 09:49 Currently or been in a relationship where the following occur: No concerns reported Const General: alert; No acute distress Eyes Conjunctivae: conjunctivae normal Resp Auscultation: clear to auscultation bilaterally Cardio Rate: regular rate Rhythm: regular rhythm GI Inspection: Yes normal to inspection Extrem General: Yes normal to inspection and No edema Coding Level of Care Code Est Pt Level 4 (85107) Complex EM visit Add On G2211 Diagnoses Complex regional pain syndrome i of left lower limb G90.522 Tobacco abuse Z72.0 Distal radius fracture, left S52.532A Encounter type: initial encounter Fracture morphology: Colles' Fracture type: closed Acquired hypothyroidism E03.9 Hypothyroidism type: acquired Overweight (BMI 25.0-29.9) E66.3 Major depression F32.9 Assessment & Plan Assessment & Plan (1) Complex regional pain syndrome i of left lower limb: Code(s): G90.522 - Complex regional pain syndrome I of left lower limb Category: Medical Plan: Patient is being followed up pain pain management. Multiple MRIs done on the left lower extremity revealing negative results (2) Tobacco abuse: Comment: Quitting discussed She declined Chantix or nicotine patch stopped 10/2023 Doing vapes Code(s): Z72.0 - Tobacco use Category: Medical Plan: Patient is strongly advised to stop smoking and have discussed about lung cancer screening program. declined. (3) Distal radius fracture, left: Comment: Status post ORIF January 2025 Code(s): S52.502A - Unspecified fracture of the lower end of left radius, initial encounter for closed fracture Category: Medical Qualifiers: Encounter type: initial encounter Fracture morphology: Colles' Fracture type: closed Qualified Code(s): S52.532A - Colles' fracture of left radius, initial encounter for closed fracture Plan: Continue to follow-up with ortho, concern on poor healing advised to not overuse as well as continue with the cast (4) Hypothyroidism: Code(s): E03.9 - Hypothyroidism, unspecified Category: Medical Qualifiers: Hypothyroidism type: acquired Qualified Code(s): E03.9 - Hypothyroidism, unspecified Plan: Continue with thyroid medication last blood work was done in 08/2024 (5) Overweight (BMI 25.0-29.9): Code(s): E66.3 - Overweight Category: Medical Plan: Diet and exercise (6) Major depression: Code(s): F32.9 - Major depressive disorder, single episode, unspecified Category: Medical Plan: Patient on medications discussed about counseling and therapy Plan History of Present Illness The patient is a 64-year-old female presenting with the management of multiple chronic conditions including hypothyroidism, complex regional pain syndrome, and postlaminectomy syndrome. She has a history of hypothyroidism and is currently on thyroid medication. The patient reports a history of lumbar discectomy and subsequent development of postlaminectomy syndrome, which has been managed with pain management interventions. The patient also suffers from complex regional pain syndrome of the left lower limb, which has been challenging to manage. She has undergone multiple MRIs of the left lower extremity, which revealed no acute process or nerve pathology. The patient has been inquiring about dorsal root ganglion manipulation as a potential intervention. The patient has a history of a distal radial fracture on the left side, which was treated with open reduction and internal fixation in January 2025. She followed up with orthopedics on May 08 and is doing well postoperatively, although there is concern about poor healing due to overuse of the wrist. A CAT scan has been advised to assess the healing process. The patient is a smoker and has been advised to stop smoking. She has discussed the possibility of lung cancer screening but has decided to defer it for now. The patient is overweight and has expressed difficulty in losing weight. She has inquired about the medication Wegovy for weight loss, but it was determined that she does not meet the BMI criteria for its use. Health Maintenance - Smoking cessation advice provided - Discussion on lung cancer screening program - Bone density test recommended due to history of fracture Social History - Smoking: Patient has a long history of smoking, currently transitioned to vaping. - Weight management: Patient is overweight and has difficulty losing weight. Review of Systems - Musculoskeletal: Reports poor healing of left distal radial fracture. - Neurological: Reports complex regional pain syndrome of the left lower limb. - Endocrine: Reports hypothyroidism. - Psychiatric: Reports anxiety disorder. Physical Exam Results - Labs: Normal blood count, normal platelet count, normal white blood cell count, normal electrolytes, normal renal function, normal liver function, normal magnesium levels. - Imaging: Multiple MRIs of the left lower extremity showing no acute process or nerve pathology. - Imaging: Knee MRI showing small joint effusion and chondromalacia patella, with a small Rios's cyst. Plan The patient will continue with thyroid medication for hypothyroidism and follow up with regular blood work to monitor thyroid function. For the complex regional pain syndrome and postlaminectomy syndrome, the patient is advised to continue pain management consultations and consider dorsal root ganglion manipulation as a potential intervention. The patient is advised to avoid overuse of the left wrist to promote healing of the distal radial fracture and follow up with orthopedics as scheduled. Smoking cessation is strongly advised, and the patient is encouraged to consider lung cancer screening in the future. A bone density test is recommended due to the history of fracture. The patient is advised on weight management strategies, although Wegovy is not indicated due to BMI criteria. Patient was informed and verbally consented to the use of an ambient scribe for clinic note documentation during this visit. Discussion Notes I discussed with the patient the management of her hypothyroidism, emphasizing the importance of regular blood work to monitor thyroid function. We reviewed the options for managing her complex regional pain syndrome and postlaminectomy syndrome, including the potential for dorsal root ganglion manipulation. I advised her on the importance of avoiding overuse of her left wrist to aid in the healing of her distal radial fracture and recommended follow-up with orthopedics. I strongly advised smoking cessation and discussed the benefits of lung cancer screening, although the patient chose to defer this for now. We also discussed weight management strategies, noting that Wegovy is not indicated due to her current BMI. Patient Instructions - Continue taking thyroid medication as prescribed. - Follow up with pain management for complex regional pain syndrome and postlaminectomy syndrome. - Avoid overusing the left wrist and follow up with orthopedics. - Consider smoking cessation and discuss lung cancer screening in the future. - Schedule a bone density test. - Explore weight management strategies. Orders: Orders XR DEXA axial skeleton Today M81.0 - Age-related osteoporosis without current pathological fracture, S52.532A - Colles' fracture of left radius, initial encounter for closed fracture Medications: New tramadol 50 mg PO DAILY 14 tabs 0RF
--- OUTSIDE RECORDS SUMMARY | 2025-05-22 10:20 | XMS_ITS | Encounter Summary ---
Author Organization [facility] Address [address] [place] [address] Care Team Providers Care Paper Stripper Name Role Phone Hayden Man MD Primary Care Provider [phone] Maggy Swartz MD Unavailable [phone] Encounter Details Date Type Department Care Team (Late st Contact Info) Description 07/22/2021 Scanned Document [facility] Neurosurgery [place] [address] [phone] Maggy Swartz MD [address] [address] Social History Tobacco Use Types Packs/Day Years [...] on filedocumented in this encounter Care Teams Paper Stripper Relationship Specialty Start Date End Date Hayden Man MD [address] [place] [address] [place] [address] PCP - General Internal Medicine 05/06/20 Maggy Swartz MD [address] [place] [id number] Surgery, Neurosurgery 08/20/20 documented as of this encounter
--- OUTSIDE RECORDS SUMMARY | 2025-05-22 10:20 | XMS_ITS | Encounter Summary ---
Author Organization [facility] Address [address] [place] [address] Phone Care Team Providers Care Pomology Teacher Name Role Phone Hayden Man MD Primary Care Provider [phone] Encounter Details Date Type Department Care Team (Late st Contact Info) Description 10/13/2023 Procedure [facility], [facility] [address] [place] [address] Social History Tobacco Use Types Packs/Day Years Used Date Smoking Tobacco: Every Day Cigarettes Alcohol Use Standard Drinks/Week Comments Yes 0 (1 standard drink = 0.6 oz pur e alcohol) Education Answer Date Recorded Are you interested in more education? Not on valdez e 02/24/2023 Are you concerned about learning? Not on file 02/24/2023 No 02/24/2023 No 02/24/2023 Digital Access Answer Date Recorded No 03/26/2023 No 03/26/2023 Reliable internet access at home? Not on file 03/26/2023 Device with a working camera? Not on file Intimate Partner Violence Answer Date R ecorded Are you denied basic needs s uch as food, clothing, or medical care? No 02/24/2023 In the past 12 months have y ou been in a relationship with a person who hurts, threatens, or tries to control you? No 02/24/2023 Are you denied basic needs s uch as food, clothing, or medical care? No 02/24/2023 In the past 12 months have y ou been in a relationship with a person who hurts, threatens, or tries to control you? No 02/24/2023 Comments Unknown Sex and Gender Information Value Date Recorded Sex Assigned at Female 02/24/2023 3:07 PM EDT Legal Sex Female 4:49 PM EDT Gender Identity Female 02/24/2023 3:03 PM EDT Sexual Orientation Straight 02/24/2023 3: 07 PM EDT documented as of this encounter Plan of Treatment Not on file documented as of this encounter Visit Diagnoses Not on filedocumented in this encounter Care Teams Pomology Teacher Relationship Specialty Start Date End Date Hayden Man MD [address] [place] [address] [place] [phone] PCP - General Internal Medicine 07/18/17 documented as of this encounter Additional Source Comments The information contained in this document represents components of the legal health record. It is not the complete legal health record.[facility]
== END 2025-05-22 10:18 | disposition home or self-care (01) ==
LOC: HO.HMCH 09:44
PROVIDERS: PCP Internal Medicine; Visit Provider Internal Medicine
DX: G90.522 Complex regional pain syndrome I of left lower limb (principal); Z72.0 Tobacco use; S52.532A Colles' fracture of left radius, initial encounter for closed fracture; E03.9 Hypothyroidism, unspecified; E66.3 Overweight; F32.9 Major depressive disorder, single episode, unspecified

== ENCOUNTER → 2025-05-22 09:43 | Outpatient (BNVA) | payer OTHER, MEDICARE, MEDICAID, SELFPAY | PROVIDERS: PCP Internal Medicine; Visit Provider Internal Medicine | DX: G90.522 Complex regional pain syndrome I of left lower limb (principal); S52.532A Colles' fracture of left radius, initial encounter for closed fracture; E03.9 Hypothyroidism, unspecified; E66.3 Overweight; F32.9 Major depressive disorder, single episode, unspecified; M81.0 Age-related osteoporosis without current pathological fracture; X58.XXXA Exposure to other specified factors, initial encounter; Y93.9 Activity, unspecified; Y92.9 Unspecified place or not applicable; Y99.9 Unspecified external cause status; Z72.0 Tobacco use | CPT/HCPCS: 96127; 99212 ==

== ENCOUNTER 2025-06-10 09:53 | Outpatient (AMB) | payer MEDICARE, MEDICAID, SELFPAY ==
[2025-06-10 09:58] VITALS: BP 118/80; PULSE 94; O2SAT 98; BMI 28.8
--- NOTE | 2025-06-10 09:58 | MHC.OFFVIS ---
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 Patient states per ER note that she was in her normal state of health when her friend who is a nurse was removing sutures placed by dermatology over the right knee. During that time the patient states she looked at the knee and immediately felt woozy, nauseous and sweaty as well as lightheaded. She recalls waking up shortly afterward while her friend was still present. She was sitting down and did not hit her head. She had no prodromal symptoms and denies headache, difficulty breathing, chest pain, abdominal pain, back pain, numbness, weakness or any additional symptoms previous to the event or afterwards. She states she is in her normal state of health now. The patient's friend who is a nurse and witnessed the entire event states the patient had at least 30 seconds of upper body convulsions and this was followed by slurred speech when she finally responded about 5 minutes after the event. She states it took approximately 10 minutes before the patient was at her baseline. No reports from the patient or her friend of tongue biting or urinary or fecal incontinence. No other focal deficits described prior to arrival. Patient has not had a history of seizures and denies history of hypertension or hyperlipidemia. Allergies No Known Allergies (No Known Allergies*) Allergy (Verified 06/10/25 10:01) Medication List - Last Reconciled 06/10/25 by RICARDO Magana [toilet seat risers and Raised toilet seat As directed] alprazolam 0.25 mg PO DAILY ascorbate calcium (vitamin C) 500 mg PO DAILY aspirin (Adult Aspirin Regimen) 81 mg PO DAILY clotrimazole 1% 1 appl topical BID 4 weeks cyanocobalamin (vitamin B-12) 1,000 mcg PO .QOD duloxetine 90 mg (3 x 30 mg) PO DAILY 90 days gabapentin 1,800 mg (3 x 600 mg) PO BID ibuprofen 600 mg PO Q8H PRN levothyroxine 88 mcg PO QAM magnesium oxide 400 mg PO DAILY miscellaneous medical supply 1 ea miscellaneous DAILY [RAISED TOILET As directed] [Raised toilet seat As directed] [SHOWER Chair As directed] [toilet seat risers As directed] tramadol 50 mg PO DAILY triamcinolone acetonide 0.025% appl topical [WALK IN SHOWER As directed] [Wrist SPlints As directed] HPI Comments Details: History of Present Illness The patient is a 64-year-old female presenting with episodes of syncope. She reports two distinct episodes where she experienced a loss of consciousness. The Second incident occurred while a friend was removing sutures. During this episode, she was seated and allowed her friend, a nurse, to remove the sutures. She experienced a loss of consciousness for approximately 10 minutes. The patient indicated that she might have been hungry at that time. Upon regaining consciousness, she felt confused and tired and tried to decline hospital transport initially provided by emergency services. However, her friends called 911, and she was transported to [facility] ER. ER workup was unremarkable with normal labs, EKG, and head CT, and minimal left carotid plaque buildup in the left ICA. The First episode occurred a few weeks prior. She recalls taking an oxycodone painkiller for excruciating left lower leg pain due to Complex Regional Pain Syndrome (CRPS), after which she felt very tired. While seated on a bar-height chair, she gradually slid off the chair and lay on the floor. She estimates being unconscious or feeling out of it for around 15 to 20 minutes, at which point her daughter called, and the patient was able to reach her phone ( which had also fallen to the floor ). At that point, her son came over and they sat on the floor for another 45 minutes or so until she felt ready to get back up. She did not seek medical attention for this event. She still believes she was probably hungry before this event as well. She did not recall any instance of tongue biting or urinary incontinence related to either episode. She has not had a similar episode before or after these 2 events. Since these 2 episodes in December, she reports experiencing episodes of dizziness or lightheadedness, especially when bending and then standing up quickly. This sensation has been brief and resolves quickly. She denies any previous history of syncope or seizures, though she reports neck pain and has a history of smoking. Her blood pressure tends to be on the lower side, and she does not follow a low-salt diet. There is no personal history of cardiac issues; however, her mother had a stroke, and her sister suffers from migraines. 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 Family History: - Mother with a history of stroke - Sister with a history of migraines Review of Systems - Neurological: Denies history of seizures, memory changes, and spacing out episodes, migraine, frequent headaches, and head injury. Reports transient dizziness with postural changes. Denies family history of seizures. - Cardiovascular: Denies history of known cardiac issues, Syncope. Denies any significant family cardiac history. - Respiratory: Denies history of sleep apnea. - Gastrointestinal: Reports being a mouth breather due to a narrow nasal passage; complains of occasionally skipping meals - Musculoskeletal: Reports chronic neck and lower back pain, Chronic LLE pain - Constitutional: Denies significant weight loss or gain. Denies frequent headaches. Results - Head CT: Unremarkable - Neck CTA: Minimal plaque in the left internal carotid artery - EKG: Normal sinus rhythm - Chest X-ray: Normal PFS Medical History Breast cancer screening by mammogram Generalized anxiety disorder Left leg paresthesias Bacterial vaginosis Anxiety Opioid use disorder Chronic pain syndrome Postlaminectomy syndrome Complex regional pain syndrome i of left lower limb Primary osteoarthritis of left knee Tobacco abuse Renal lesion Closed left ankle fracture Cervical disc herniation Hypothyroidism Surgical History Hx of cervical discectomy H/O colonoscopy H/O lumbar discectomy Spinal stenosis History of left knee surgery Left ACL tear Family History Father No problems noted. Mother Stroke Paternal Aunt Breast cancer Social History Housing: House Are you a primary career services officer to a significant other at home: No Do you presently have visiting nurse or other home services: No Alcohol intake: current Alcohol intake frequency: holidays/special occasions only Alcohol type: wine Patient Tobacco Use Status: Former Tobacco user Tobacco use type: Cigarette Years Smoked: 30 e-Cigarette/Vaping Use: Currently Using Second Hand Smoke Exposure: Yes service: No Current occupational status: unemployed and disabled 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 Cognitive needs: No Hearing needs: No Vision needs: No Review of Systems Const All systems reviewed & are unremarkable except as noted in HPI and below Physical Exam Vital Signs: Last Vital Signs Pulse 94 06/10/25 09:58 BP 118/80 06/10/25 09:58 Pulse Ox 98 06/10/25 09:58 Oxygen Delivery Method Room Air 06/10/25 09:58 BMI result Body Mass Index 28.8 Const General: cooperative and no acute distress Orientation/consciousness: patient oriented x3 HEENT Head: Yes normocephalic Resp Effort & Inspection: normal respiratory effort and able to speak in complete sentences Auscultation: clear to auscultation bilaterally Cardio Rate: regular rate Rhythm: regular rhythm Neuro Other: EOM intact induces mild head tremor Bilateral Spurling induces non-radiating central neck discomfort. Romberg- sways Tandem gait impaired DTRs 3+ throughout w/ exception of left radial/brachial not assessed d/t wrist brace- s/p Lt radial Fx. General: patient oriented x3 and CN's II-XI intact bilaterally Gait exam (Neuro): Normal gait present Motor exam (neuro): 5/5 motor strength present throughout Coordination: oiuqxh-qg-[id number] test normal Pupils: Normal pupillary reactivity/response: bilateral Psych Appearance: grossly normal Mental Status: mental status grossly normal Speech and movement: Normal speech and movement present Affect: normal affect Attitude: cooperative Thought process: Normal thought process present Thought content: Normal thought content present Insight: Good insight present (Psych) Assessment & Plan Assessment & Plan (1) Syncope and collapse: Code(s): R55 - Syncope and collapse Category: Medical Plan Discussion Notes The patient and I discussed the nature of her syncope episodes, and while they do not present with typical seizure characteristics, further evaluation is warranted. The need for a baseline electroencephalogram (EEG) was advised to explore neurological activity and exclude any subtle seizure activity. I encouraged the patient to undergo a cardiac evaluation to rule out cardiovascular contributors, especially given her low baseline blood pressure and history of syncope. Further, I recommended adding a 12-20 fluid oz serving of electrolyte replacement beverage to her usual daily fluid intake, for a goal of 64-72 ounces of fluid per day order to improve hydration status and stabilize blood pressure during postural changes. The importance of eating regular meals was emphasized, particularly given the correlation of syncope episodes with possible low blood sugar or dehydration. A referral to ENT was also suggested to address the reported nasal breathing difficulties. Plan - Schedule an EEG to rule out any seizure activity. - Refer the patient to cardiology for an evaluation to assess the cardiac causes. - Initiate an ENT consultation due to the patient's difficulties with nasal breathing. - Advise increased daily fluid intake to 64 to 72 ounces, emphasizing the inclusion of electrolyte beverages. - Encourage dietary adjustments to avoid prolonged fasting that may contribute to orthostatic dizziness or syncope. - Instruct the patient to avoid sudden postural changes to mitigate episodes of dizziness likely related to transient hypotension. - Recommend patient monitor blood pressure regularly and follow up in 6 months for reassessment. Patient was informed and verbally consented to the use of an ambient scribe for clinic note documentation during this visit. Patient Instructions - Drink 64 to 72 ounces of fluid daily, including 12 to 20 ounces of an electrolyte replacement drink. - Eat consistent, regular meals to prevent low blood sugar. - Stand up slowly after sitting or lying down. - Follow up with cardiology for heart health evaluation. - Attend an ENT visit to check nasal breathing. - Report any additional episodes of syncope or worsening symptoms immediately. Patient seen in collaboration with Dr. Melara. Will follow-up upon review of above and patient to follow-up in clinic in 6 months or sooner prn. Orders: Orders EEG electroencephalogram 06/10/25 R55 - Syncope and collapse Referrals Cardiology Referral R55 - Syncope and collapse Ear/Nose/Throat Referral J34.89 - Other specified disorders of nose and nasal sinuses Coding Level of Care Code New Pt Level 4 (55406) Diagnoses Syncope and collapse R55
--- OUTSIDE RECORDS SUMMARY | 2025-06-10 10:28 | XMS_ITS | Encounter Summary ---
Author Organization [facility] Address [address] [place] [id number] Phone Care Team Providers Care Dope Dry House Operator Name Role Phone Hayden Man MD Primary Care Provider [phone] Encounter Details Date Type Department Care Team (Late st Contact Info) Description 10/13/2023 Procedure Pass [facility] [address] [place] [address] Social History Tobacco Use Types Packs/Day Years [...] on filedocumented in this encounter Care Teams Dope Dry House Operator Relationship Specialty Start Date End Date Hayden Man MD [address] [place] [address] [place] [id number] PCP - General Internal Medicine 07/18/17 documented as of this encounter Additional Source Comments The information contained in this document represents components of the legal health record. It is not the complete legal health record.[facility]
--- OUTSIDE RECORDS SUMMARY | 2025-06-10 10:28 | XMS_ITS | Encounter Summary ---
Author Organization [facility] Address [address] [place] [id number] Care Team Providers Care Customer Relations Consultant Name Role Phone Hayden Man MD Primary Care Provider [phone] Maggy Swartz MD Unavailable [phone] Encounter Details Date Type Department Care Team (Late st Contact Info) Description 07/22/[address] [facility] Neurosurgery [place] [address] [phone] Maggy Swartz MD [address] [id number] Social History Tobacco Use Types Packs/Day Years [...] on filedocumented in this encounter Care Teams Customer Relations Consultant Relationship Specialty Start Date End Date Hayden Mna MD [address] [place] [address] [place] [address] PCP - General Internal Medicine 05/06/20 Maggy Swartz MD [address] [place] [id number] Surgery, Neurosurgery 08/20/20 documented as of this encounter
== END 2025-06-10 11:27 | disposition home or self-care (01) ==
LOC: HO.HSMS 09:54
PROVIDERS: PCP Internal Medicine; Visit Provider Nurse Practitioner Family
DX: R55 Syncope and collapse (principal)
CPT/HCPCS: 99204

== ENCOUNTER → 2025-06-10 09:53 | Outpatient (BNVA) | payer OTHER, MEDICARE, MEDICAID, SELFPAY | PROVIDERS: PCP Internal Medicine; Visit Provider Nurse Practitioner Family | DX: R55 Syncope and collapse (principal); J34.89 Other specified disorders of nose and nasal sinuses | CPT/HCPCS: 99202 ==

== ENCOUNTER 2025-06-19 11:10 | Outpatient (AMB) | payer OTHER, MEDICARE, MEDICAID, SELFPAY ==
--- NOTE | 2025-06-19 11:20 | A.OFFVIS_ITS ---
Vital Signs 06/19/25 11:23 Weight 174 lb Blood Pressure Location Lt brachial Position Sitting Respiration 18 Pulse 92 Pulse Source Pulse Oximeter Pulse Oximetry (%) 98 Oxygen Delivery Method Room Air Intake Visit Reasons: Follow Up Diesel Stationary Engineer Required: No Allergies No Known Allergies (No Known Allergies*) Allergy (Verified 06/19/25 11:25) HPI Comments Details: Claudia is back in my office to discuss possibility of further treatment. She wants to go for a trial of DRG stimulation to help the pain in the lower back. She has hardware in the back therefore DRG would be better performed with Curonix device. She still did not complete psychological evaluation. She was given today a telephone number to [employer] she would need to complete psychological evaluation and then come to my office we will schedule a trial of DRG using Curonix DRG trial left L3 and left L4 foramina. As of her concern about the MRI of the lower extremity unfortunately the insurance company so far was not very responsive to us on the request of approval of this MRI. This was explained to the patient. Her insurance company is [employer]. She continues to complain on severe intractable pain of the left lower extremity. We tried left sciatic nerve block ultrasound-guided and she reports only minimal pain relief about 50% for the 1st hour after the injection. Therefore any stimulation procedures on the sciatic nerve would not be effective to treat her pain. She denied any help from intrathecal pain pump. She insisted on removal of the device. At the [facility] she was getting sympathetic blockade lumbar spine as well as epidural steroid injection. None of those were helpful for her pain. She was subject of spinal cord stimulator trial in the past which was not working for her. She was receiving pain pump which has only bupivacaine as the acting medicine. Multiple opioid and non opioid medications including morphine and fentanyl were tried for her as well as clonidine. None of those medications in the pump helping her pain. Her pain is on posterior surface of the hip and the posterior surface of the lower leg with radiation to the lateral surface of the foot. She requested me to send her for the MRI of the left lower extremity. She is now convinced that her pain is related to Peroneal nerve injury/neuropathy. My experience with sciatic nerve block goes against the steering however I will be happy if MRI will demonstrate any possible lesions of the common superficial or deep peroneal nerves. Prior: under observation with Complex regional pain syndrome of the left lower extremity secondary to previous trauma.? [facility] Medical History Breast cancer screening by mammogram Generalized anxiety disorder Left leg paresthesias Bacterial vaginosis Anxiety Opioid use disorder Chronic pain syndrome Postlaminectomy syndrome Complex regional pain syndrome i of left lower limb Primary osteoarthritis of left knee Tobacco abuse Renal lesion Closed left ankle fracture Cervical disc herniation Hypothyroidism Surgical History Hx of cervical discectomy H/O colonoscopy H/O lumbar discectomy Spinal stenosis History of left knee surgery Left ACL tear Family History Father No problems noted. 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 Cognitive needs: No Hearing needs: No Vision needs: No Review of Systems Const All systems reviewed & are unremarkable except as noted in HPI and below Physical Exam Vital Signs: Last Vital Signs Pulse 92 06/19/25 11:23 Resp 18 06/19/25 11:23 Pulse Ox 98 06/19/25 11:23 Oxygen Delivery Method Room Air 06/19/25 11:23 Const General: healthy appearing and comfortable Chest Chest palpation & inspection: normal inspection of the chest Resp Effort & Inspection: normal respiratory effort, able to speak in complete sentences, normal respiratory pattern, no audible wheezes, no cough, respiratory effort not decreased and no grunting Cardio Jugular venous distension: no JVD Extrem Other: She reports awkwardness with walking and relative weakness with dorsiflexion of the left lower extremity left foot. General: Yes no pedal edema and Yes no calf tenderness Assessment & Plan Assessment & Plan (1) Osteoarthritis of left knee: Code(s): M17.12 - Unilateral primary osteoarthritis, left knee Category: Medical Plan: (2) Postlaminectomy syndrome: Code(s): M96.1 - Postlaminectomy syndrome, not elsewhere classified Category: Medical (3) Complex regional pain syndrome i of left lower limb: Code(s): G90.522 - Complex regional pain syndrome I of left lower limb Category: Medical (4) Implantable intrathecal infusion pump present: Code(s): Z96.89 - Presence of other specified functional implants Category: Medical (5) Common peroneal nerve dysfunction: Code(s): S84.10XA - Injury of peroneal nerve at lower leg level, unspecified leg, initial encounter Category: Medical (6) 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 She is requesting if DRG will be acceptable modality of treatment. I explained to her need for psychological evaluation. I gave her brochure of [employer] to pass through psychological evaluation. When she will pass the brochure we will request her insurance company to approve left L3 and L4 DRG stimulation. 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
[2025-06-19 11:23] VITALS: PULSE 92; RESP 18; O2SAT 98
== END 2025-06-19 11:35 | disposition home or self-care (01) ==
LOC: HO.PMC 11:11
PROVIDERS: PCP Internal Medicine; Visit Provider Anesthesiology
DX: M17.12 Unilateral primary osteoarthritis, left knee (principal); M96.1 Postlaminectomy syndrome, not elsewhere classified; G90.522 Complex regional pain syndrome I of left lower limb; Z96.89 Presence of other specified functional implants; S84.10XA Injury of peroneal nerve at lower leg level, unspecified leg, initial encounter; S84.12XA Injury of peroneal nerve at lower leg level, left leg, initial encounter
CPT/HCPCS: 99213

== ENCOUNTER → 2025-06-19 11:10 | Outpatient (BNVA) | payer OTHER, MEDICARE, MEDICAID, SELFPAY | PROVIDERS: PCP Internal Medicine; Visit Provider Anesthesiology | DX: M17.12 Unilateral primary osteoarthritis, left knee (principal); G90.522 Complex regional pain syndrome I of left lower limb; M96.1 Postlaminectomy syndrome, not elsewhere classified; Z96.89 Presence of other specified functional implants | CPT/HCPCS: 99212 ==

== ENCOUNTER 2025-06-22 09:43 | Outpatient (REF) | payer OTHER, MEDICARE, MEDICAID, SELFPAY ==
--- NOTE | ~2025-06-22 | CT_ITS ---
CLINICAL HISTORY: S52.532A - Colles fracture of left radius, initial encounter for closed... --- Additional Notes or Special Instructions: Three months status post left distal radius ORIF with delayed evidence of Exam: CT of the left wrist without intravenous contrast. Comparison: Serial radiographs dating from February 09, 2025 to May 08, 2025. Findings: Patient's initial radiographs from February 09, 2025 demonstrated a comminuted and impacted fracture of the distal radius. Patient's subsequently underwent placement of volar plate and screw device of the distal radius fracture identified on radiographs from February 26, 2025. On subsequent radiographs from April 03, 2025 and May 08, 2025, fracture line remains apparent without solid bony bridging at the fracture line. CT scan was subsequently performed. Patient's CT scan demonstrates unchanged position of the volar plate and screw device over the distal radius. This is spanning the fracture of the distal radial metaphysis. However, no significant callus formation or bony bridging is seen at the fracture line. There is sclerosis developing on both sides of the fracture line. Diastasis at the fracture line measuring up to 5 mm. Approximately 3 mm of posterior displacement of the distal fracture fragment. No fracture of the surgical hardware is evident. No bony destructive change seen to suggest osteolysis. Disuse osteopenia is evident. Impression: Status post open reduction internal fixation of the previously identified distal radius fracture. No bony bridging or callus formation seen of the fracture line concerning for delayed union or potentially developing nonunion given the timeframe of the patient's initial injury. Please see above for full details. This document has been electronically signed by: Kwadwo Shearer MD on 06/24/2025 10:03:22
--- OUTSIDE RECORDS SUMMARY | 2025-06-22 09:45 | XMS_ITS | Encounter Summary ---
Author Organization [facility] Address [address] [place] [phone] Phone Care Team Providers Care Dynamometer Tester Name Role Phone Hayden Man MD Primary Care Provider [phone] Encounter Details Date Type Department Care Team (Late st Contact Info) Description 10/13/2023 Procedure Pass [facility] [address] [place] [address] Social History Tobacco Use Types Packs/Day Years [...] on filedocumented in this encounter Care Teams Dynamometer Tester Relationship Specialty Start Date End Date Hayden Man MD [address] [place] [address] [place] [phone] PCP - General Internal Medicine 07/18/17 documented as of this encounter Additional Source Comments The information contained in this document represents components of the legal health record. It is not the complete legal health record.[facility]
== END 2025-06-22 09:44 | disposition home or self-care (01) ==
LOC: HO.CT 09:43
PROVIDERS: PCP Internal Medicine; Visit Provider Orthopaedic Surgery
DX: S52.532A Colles' fracture of left radius, initial encounter for closed fracture (principal)
CPT/HCPCS: 73200

== ENCOUNTER → 2025-06-22 09:44 | Outpatient (BNV) | payer OTHER, SELFPAY | PROVIDERS: PCP Internal Medicine; Visit Provider Radiology Diagnostic Radiology | DX: S52.532A Colles' fracture of left radius, initial encounter for closed fracture (principal) | CPT/HCPCS: 73200 ==

== ENCOUNTER 2025-07-09 10:09 | Outpatient (AMB) | payer MEDICARE, MEDICAID, SELFPAY ==
[2025-07-09 10:32] VITALS: BMI 28.8
--- NOTE | 2025-07-09 10:32 | MHC.OFFVIS ---
Vital Signs 07/09/25 10:32 Height 5 ft 5 in Weight 173 lb BMI 28.8 Intake Visit Reasons: O/V Left wrist CT review Intake Note: Claudia 64 yr old right hand dominant female presents today for her left hand. At her last visit she was given a velcro wrist brace to be worn as a cast and to be removed for hygiene purposes only and was sent to have a CT scan of left hand. She is here for results today. States she has not has any pain since her last visit, she mentioned she has been using her brace and at times to sleep and has very little discomfort when removing her brace. Impression: Status post open reduction internal fixation of the previously identified distal radius fracture. No bony bridging or callus formation seen of the fracture line concerning for delayed union or potentially developing nonunion given the timeframe of the patient's initial injury. Please see above for full details. Allergies No Known Allergies (No Known Allergies*) Allergy (Verified 07/09/25 10:34) HPI HPI O/V Left wrist CT review: Details: Claudia is a 64 year old right hand dominant woman who returns S/P left distal radius ORIF, DOS: 02/14/25. S/P fall, DOI: 02/09/25. She is here for a CT scan review She says that she has been wearing her splint and been more careful with her activities. She denies having any pain. She denies smoking but says she vapes several times daily. She denies any numbness or tingling. She says she fell at the time of her injury, due to her left leg giving way. 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 She sees Pain Management for this. 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 [facility] Medical History Breast cancer screening by mammogram Generalized anxiety disorder Left leg paresthesias Bacterial vaginosis Anxiety Opioid use disorder Chronic pain syndrome Postlaminectomy syndrome Complex regional pain syndrome i of left lower limb Primary osteoarthritis of left knee Tobacco abuse Renal lesion Closed left ankle fracture Cervical disc herniation Hypothyroidism Surgical History Hx of cervical discectomy H/O colonoscopy H/O lumbar discectomy Spinal stenosis History of left knee surgery Left ACL tear Family History Father No problems noted. 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 Cognitive needs: No Hearing needs: No Vision needs: No Review of Systems Const All systems reviewed & are unremarkable except as noted in HPI and below Physical Exam Vital Signs: BMI result Body Mass Index 28.8 Const General: no acute distress and alert Orientation/consciousness: patient oriented x3 Neuro General: patient oriented x3 Extrem Other: Evaluation of Left Upper Ext/remity: The patient is alert, oriented, and in no acute distress sensation is normal to the tips of all digits Cap refill brisk ROM: She can make a fist and extend all her digits, with no pain Full & symetrical pronosupination Fracture site non-tender Definite leach line where she has been wearing her splint Radiographs: 3 views of the left wrist from 05/08/25 were reviewed by me today in clinic. They show a transverse distal radius fracture with satisfactory fracture alignment, position of all implants, no evidence of loosening, and very little evidence of interval bony healing. Left wrist CT scan: Findings: Patient's initial radiographs from February 09, 2025 demonstrated a comminuted and impacted fracture of the distal radius. Patient's subsequently underwent placement of volar plate and screw device of the distal radius fracture identified on radiographs from February 26, 2025. On subsequent radiographs from April 03, 2025 and May 08, 2025, fracture line remains apparent without solid bony bridging at the fracture line. CT scan was subsequently performed. Patient's CT scan demonstrates unchanged position of the volar plate and screw device over the distal radius. This is spanning the fracture of the distal radial metaphysis. However, no significant callus formation or bony bridging is seen at the fracture line. There is sclerosis developing on both sides of the fracture line. Diastasis at the fracture line measuring up to 5 mm. Approximately 3 mm of posterior displacement of the distal fracture fragment. No fracture of the surgical hardware is evident. No bony destructive change seen to suggest osteolysis. Disuse osteopenia is evident. Impression: Status post open reduction internal fixation of the previously identified distal radius fracture. No bony bridging or callus formation seen of the fracture line concerning for delayed union or potentially developing nonunion given the timeframe of the patient's initial injury. Please see above for full details. 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 Left distal radius non-union, S/P ORIF DOS: 02/14/25 S/P fall, DOI: 02/09/25 Reduced in ED: 02/09/25 The patient appears to be doing well post-operatively in regards to pain I reviewed her CT scan & previous radiographs, I am concerned about the formation of a possible non-union given her little evidence of interval bony healing. Patient reports daily vaping and overuse of her wrist. There is currently no evidence of loosening or implant failure on radiographs In an effort to try to promote bone healing: - I recommend & ordered the use of a bone stimulator to try and improve her fracture healing. - She will continue to wear her velcro wrist splint, though we did talk about putting her into a cast. - I recommend that she speak with Dr. AVENDANO, her PCP, concerning bloodwork including vitamin-D and calcium levels and possibly other metabolic studies to rule out these conditions as contributing factors in her lack of bony healing.? - I explained the effects of smoking on wound/bone healing, and recommend they stop smoking/vaping while healing, as we are very concerned that she is developing a non-union of her distal radius fracture. This includes vaping, Marijuana, and other Nicotine products including patches used to help quit. They expressed understanding and says she will work on attempting to stop her vaping.? I discussed activity modifications, she is to lift nothing heavier than a cellphone She vapes several times a day every day. She has a hx of frequent falls, CPS, CRPS affecting her LLE, and anxiety disorder She will follow up in 4-6 weeks, with X-rays, 3V L wrist, OOP Scribed for Sarahy Ramirez MD by Denis Silva, medical program specialist, on 07/09/25 at 10:40 AM, EST. 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
--- OUTSIDE RECORDS SUMMARY | 2025-07-09 11:52 | XMS_ITS | Encounter Summary ---
Author Organization [facility] Address [address] [place] [address] Care Team Providers Care Molecular Biologist Name Role Phone Hayden Man MD Primary Care Provider [phone] Maggy Swartz MD Unavailable [phone] Encounter Details Date Type Department Care Team (Late st Contact Info) Description 12/16/2020 Scanned Document [facility] Neurosurgery [address] [place] [address] Bibi Maza PA Valid Address Needed Social [...] on filedocumented in this encounter Care Teams Molecular Biologist Relationship Specialty Start Date End Date Hayden Man MD [address] [place] [address] [place] [address] PCP - General Internal Medicine 05/06/20 Maggy Swartz MD [address] [place] [address] Surgery, Neurosurgery 08/20/20 documented as of this encounter
--- OUTSIDE RECORDS SUMMARY | 2025-07-09 11:52 | XMS_ITS | Encounter Summary ---
Author Organization [facility] Address [address] [place] [address] Care Team Providers Care Roughener Name Role Phone Hayden Man MD Primary Care Provider [phone] Maggy Swartz MD Unavailable [phone] Reason for Visit * Reason Comments Medication Refill Encounter Details Date Type Department Care Team (Late st Contact Info) Description 09/27/2020 Refill [facility] Neurosurgery [address] [place] [phone] Bibi Maza PA Valid Address Needed Lumbar [...] myelopathy documented in this encounter Care Teams Roughener Relationship Specialty Start Date End Date Hayden Man MD [address] [place] [address] [address] [place] [address] PCP - General Internal Medicine 05/06/20 Maggy Swartz MD [address] [place] [address] Surgery, Neurosurgery 08/20/20 documented as of this encounter
--- OUTSIDE RECORDS SUMMARY | 2025-07-09 11:52 | XMS_ITS | Encounter Summary ---
Author Organization [facility] Address [address] [place] [address] Care Team Providers Care Crystal Slicer Name Role Phone Hayden Man MD Primary Care Provider [phone] Magyg Swartz MD Unavailable [phone] Encounter Details Date Type Department Care Team (Late st Contact Info) Description 12/16/2020 Scanned Document [facility] Neurosurgery [address] [place] [address] Bibi Maza PA Valid Address Needed Social [...] on filedocumented in this encounter Care Teams Crystal Slicer Relationship Specialty Start Date End Date Hayden Man MD [address] [place] [address] [place] [address] PCP - General Internal Medicine 05/06/20 Maggy Swartz MD [address] [place] [address] Surgery, Neurosurgery 08/20/20 documented as of this encounter
--- OUTSIDE RECORDS SUMMARY | 2025-07-09 11:52 | XMS_ITS | Encounter Summary ---
Author Organization [facility] Address [address] [place] [address] Care Team Providers Care Applications Sales Consultant Name Role Phone Hayden Man MD Primary Care Provider [phone] Maggy Swartz MD Unavailable [phone] Encounter Details Date Type Department Care Team (Late st Contact Info) Description 02/02/[address] [facility] Neurosurgery [place] [address] [address] Maggy Swartz MD [address] [address] Social History Tobacco Use Types Packs/Day Years [...] on filedocumented in this encounter Care Teams Applications Sales Consultant Relationship Specialty Start Date End Date Hayden Man MD [address] [place] [address] [place] [address] PCP - General Internal Medicine 05/06/20 Maggy Swartz MD [address] [place] [address] Surgery, Neurosurgery 08/20/20 documented as of this encounter
--- OUTSIDE RECORDS SUMMARY | 2025-07-09 11:52 | XMS_ITS | Clinical Summary ---
Author Organization [facility] Address [address] [place] [address] Phone Care Team Providers Care Metalizing Machine Operator Automatic Name Role Phone Po, Hayden Mckeon MD Primary Care Provider [phone] Allergies No known active allergies Medications LEVOTHYROXINE SODIUM (LEVOTHYROXINE ORAL) Take 88 mcg by mouth. Active CYANOCOBALAMIN, VITAMIN B-12, (VITAMIN B-12 ORAL) Take by mouth. Active MAGNESIUM ORAL Take by mouth. Active gabapentin (NEURONTIN) 600 MG tablet Take 600 mg by mouth 4 (four) times a day as needed. Active ferrous sulfate 325 mg (65 mg [place] iron) tablet Take 325 mg by mouth 3 (three) times a week. Active ALPRAZolam (XANAX) 0.25 MG tablet TK 1 T PO QD PRN 04/11/2020 Active nortriptyline (PAMELOR) 10 MG capsuleIndicati ons:Complex regional pain syndrome type 2 of left lower extremity Take 2 capsules (20 mg total) by mouth nightly at bedtime. 30 capsule 5 07/22/2023 Active pregabalin (LYRICA) 100 MG capsule Take 1 capsule (100 mg total) by mouth 3 (three) times a day. 90 capsule 5 10/23/2024 Active Active Problems Problem Noted Date Diagnosed Date Lumbar radiculopathy 01/11/2020 Sacroiliitis, not elsewhere classified 0 Knee pain 08/01/2017 Immunizations Immunization Administration Dates Next Due Influenza Quadrivalent w/ Preservative IM 2018 Social History Tobacco Use Types Packs/Day Years Used Date Smoking Tobacco: Every Day Cigarettes Tobacco Cessation:Ready to Q uit: Not Asked; [...] Orientation Straight 02/24/2023 3: 07 PM EDT Last Filed Vital Signs Vital Sign Reading Time Taken Comments Blood Pressure 130/60 02/09/2024 1:12 PM EDT Pulse 80 02/09/2024 1:12 PM EDT Temperature 36.3 C (97.3 F) 03/15/2023 11:12 AM EDT Respiratory Rate - - Oxygen Saturation 99% 02/09/2024 1:12 PM EDT Inhaled Oxygen Concentration - - Weight 74.8 kg (165 lb) 12/05/2023 10:51 AM EST Height 162.6 cm (5' 4 ) 12/05/2023 10:51 AM EST Body Mass Index 28.32 12/05/2023 10:51 AM EST Plan of Treatment Health Maintenance Due Date Last Done Comments LIPID PANEL 1962 TSH LEVEL 1962 DEPRESSION SCREENING 1974 SMOKING Hx and SMOKELESS TOBACCO SCREENING 1975 HEPATITIS C SCREENING 1980 HIV ONE-TIME SCREENING (18-65 YEARS) 1980 PAP SMEAR 1983 SCREENING FOR DIABETES 1997 MAMMOGRAM 2002 COLOGUARD 2007 COLONOSCOPY 2007 COLORECTAL CANCER SCREENING 2007 FIT TEST 2007 FOBT 2007 SIGMOIDOSCOPY 2007 VIRTUAL COLONOSCOPY 2007 ZOSTER VACCINES (1 of 2) 2012 PNEUMOCOCCAL VACCINES (50+ years) (2 of 2 - PCV) 05/19/2019 05/19/2018 INFLUENZA VACCINE (#1) 2025 , 12/17/2022, 09/06/2021, Additional history exists COVID-19 VACCINE ( season) 2025 10/20/2023, 08/09/2022, 10/01/2021, Additional history exists Adult Td,Tdap Booster 11/21/2025 11/21/2015 RSV VACCINE Completed 10/20/2023 HEPATITIS A VACCINES Aged Out No long er eligible based on patient's age to complete this topic HIB VACCINES Aged Out No longer eligi ble based on patient's age to complete this topic MENINGOCOCCAL VACCINES (ACWY) Aged Out No longer eligible based on patient's age to complete this topic MENINGOCOCCAL VACCINES (B) Aged Out N o longer eligible based on patient's age to complete this topic Medical Devices Not on file Insurance [employer] MEDICARE PART A & B [facility] [place] [id number] MEDICARE PART A & B [place] [facility] [place] [id number] MEDICARE PART A & B [place] PART A & B [employer] [facility] Address: [address] [address] [place] [address] Care Teams Metalizing Machine Operator Automatic Relationship Specialty Start Date End Date Hayden Man MD [address] [place] [address] PCP - General Internal Medicine 07/18/17 Additional Source Comments The information contained in this document represents components of the legal health record. It is not the complete legal health record.[facility]
--- OUTSIDE RECORDS SUMMARY | 2025-07-09 11:52 | XMS_ITS | Encounter Summary ---
Author Organization [facility] Address [address] [place] [address] Phone Care Team Providers Care Coal Passer Name Role Phone Hayden Man MD Primary Care Provider [phone] Encounter Details Date Type Department Care Team (Late st Contact Info) Description 10/13/2023 Procedure Pass [facility] [address] [place] [address] Social History Tobacco Use Types Packs/Day Years [...] on filedocumented in this encounter Care Teams Coal Passer Relationship Specialty Start Date End Date Hayden Man MD [address] [place] [address] [place] [phone] PCP - General Internal Medicine 07/18/17 documented as of this encounter Additional Source Comments The information contained in this document represents components of the legal health record. It is not the complete legal health record.[facility]
--- OUTSIDE RECORDS SUMMARY | 2025-07-09 11:52 | XMS_ITS | Encounter Summary ---
Author Organization [facility] Address [address] [place] [address] Care Team Providers Care Ear Nose Throat Surgeon Name Role Phone Hayden Man MD Primary Care Provider [phone] Maggy Swartz MD Unavailable [phone] Encounter Details Date Type Department Care Team (Late st Contact Info) Description 07/22/2021 Scanned Document [facility] Neurosurgery [place] [address] [address] Maggy Swartz MD [address] [address] Social History Tobacco Use Types Packs/Day Years [...] on filedocumented in this encounter Care Teams Ear Nose Throat Surgeon Relationship Specialty Start Date End Date Hayden Man MD [address] [place] [address] [place] [address] PCP - General Internal Medicine 05/06/20 Maggy Swartz MD [address] [place] [address] Surgery, Neurosurgery 08/20/20 documented as of this encounter
--- OUTSIDE RECORDS SUMMARY | 2025-07-09 11:52 | XMS_ITS | Encounter Summary ---
Author Organization [facility] Address [address] [place] [address] Care Team Providers Care Chemical Operator Name Role Phone Hayden Man MD Primary Care Provider [phone] Maggy Swartz MD Unavailable [phone] Encounter Details Date Type Department Care Team (Late st Contact Info) Description 09/11/2021 Scanned Document [facility] Neurosurgery [place] [address] [address] Maggy Swartz MD [address] [address] Social History Tobacco Use Types Packs/Day Years [...] on filedocumented in this encounter Care Teams Chemical Operator Relationship Specialty Start Date End Date Hayden Man MD [address] [place] [address] [place] [address] PCP - General Internal Medicine 05/06/20 Maggy Swartz MD [address] [place] [address] Surgery, Neurosurgery 08/20/20 documented as of this encounter
--- OUTSIDE RECORDS SUMMARY | 2025-07-09 11:52 | XMS_ITS | Encounter Summary ---
Author Organization [address] [address] Care Team Providers Care Stone Processing Machine Operator Name Role Phone Hayden Man MD Primary Care Provider [phone] Maggy Swartz MD Unavailable [phone] Encounter Details Date Type Department Care Team (Late st Contact Info) Description 08/22/2020 Scanned Document [facility] Neurosurgery [place] 85 [facility] [address] [place] [phone] Maggy Swartz MD 85 [facility] [place] [address] [place] [address] Social History Tobacco Use Types Packs/Day Years [...] on filedocumented in this encounter Care Teams Stone Processing Machine Operator Relationship Specialty Start Date End Date Hayden Man MD [address] [place] [address] [address] [place] [address] PCP - General Internal Medicine 05/06/20 Maggy Swartz MD [address] [place] [address] Surgery, Neurosurgery 08/20/20 documented as of this encounter
--- OUTSIDE RECORDS SUMMARY | 2025-07-09 11:52 | XMS_ITS | Encounter Summary ---
Author Organization [address] [address] Care Team Providers Care Tool Crib Clerk Name Role Phone Hayden Man MD Primary Care Provider [phone] Maggy Swartz MD Unavailable [phone] Encounter Details Date Type Department Care Team (Late st Contact Info) Description 09/17/2020 Scanned Document [facility] Neurosurgery [place] 85 [facility] [address] [place] [phone] Maggy Swartz MD 85 [facility] [place] [address] [place] [address] Social History Tobacco Use Types Packs/Day Years [...] on filedocumented in this encounter Care Teams Tool Crib Clerk Relationship Specialty Start Date End Date Hayden Man MD [address] [place] [address] [address] [place] [address] PCP - General Internal Medicine 05/06/20 Maggy Swartz MD [address] [place] [address] Surgery, Neurosurgery 08/20/20 documented as of this encounter
--- OUTSIDE RECORDS SUMMARY | 2025-07-09 11:52 | XMS_ITS | Encounter Summary ---
Author Organization [facility] Address [address] [place] [address] Care Team Providers Care Machine Shorthand Teacher Name Role Phone Hayden Man MD Primary Care Provider [phone] Maggy Swartz MD Unavailable [phone] Encounter Details Date Type Department Care Team (Late st Contact Info) Description 02/02/2021 Scanned Document [facility] Neurosurgery [place] [address] [address] Maggy Swartz MD [address] [address] Social History Tobacco Use Types Packs/Day Years [...] filedocumented in this encounter Care Teams Machine Shorthand Teacher Relationship Specialty Start Date End Date Hayden Man MD [address] [place] [address] [place] [address] PCP - General Internal Medicine 05/06/20 Maggy Swartz MD [address] [place] [address] Surgery, Neurosurgery 08/20/20 documented as of this encounter
--- OUTSIDE RECORDS SUMMARY | 2025-07-09 11:52 | XMS_ITS | Encounter Summary ---
Author Organization [facility] Address [address] [place] [address] Care Team Providers Care Hydraulic Hammer Operator Name Role Phone Hayden Man MD Primary Care Provider [phone] Maggy Swartz MD Unavailable [phone] Encounter Details Date Type Department Care Team (Late st Contact Info) Description 12/16/2020 Scanned Document [facility] Neurosurgery [address] [place] [address] Bibi Maza PA Valid Address Needed Social [...] on filedocumented in this encounter Care Teams Hydraulic Hammer Operator Relationship Specialty Start Date End Date Hayden Man MD [address] [place] [address] [place] [address] PCP - General Internal Medicine 05/06/20 Maggy Swartz MD [address] [place] [address] Surgery, Neurosurgery 08/20/20 documented as of this encounter
--- OUTSIDE RECORDS SUMMARY | 2025-07-09 11:52 | XMS_ITS | Encounter Summary ---
Author Organization [facility] Address [address] [place] [address] Care Team Providers Care Custodial Laborer Name Role Phone Hayden Man MD Primary Care Provider [phone] Maggy Swartz MD Unavailable [phone] Encounter Details Date Type Department Care Team (Late st Contact Info) Description 03/24/2021 Scanned Document [facility] Neurosurgery [address] [address] Bibi Maza PA Valid Address [...] on filedocumented in this encounter Care Teams Custodial Laborer Relationship Specialty Start Date End Date Hayden Man MD [address] [place] [address] [place] [address] PCP - General Internal Medicine 05/06/20 Maggy Swartz MD [address] [place] [address] Surgery, Neurosurgery 08/20/20 documented as of this encounter
--- OUTSIDE RECORDS SUMMARY | 2025-07-09 11:52 | XMS_ITS | Encounter Summary ---
Author Organization [facility] Address [address] [place] [address] Care Team Providers Care Materials Management Supervisor Name Role Phone Hayden Man MD Primary Care Provider [phone] Maggy Swartz MD Unavailable [phone] Reason for Visit * Reason Comments Other Encounter Details Date Type Department Care Team (Late st Contact Info) Description 04/03/2021 Telephone [facility] Urologic Surgery [address] [id number] Hardik Reese MD [address] [place] [address] Other Social History Tobacco Use Types [...] Ct abdomen with and without contrast to [facility]. documented in this encounter Plan of Treatment Not on file documented as of this encounter Visit Diagnoses Not on filedocumented in this encounter Care Teams Materials Management Supervisor Relationship Specialty Start Date End Date Hayden Man MD [address] [place] [address] 101 [place] [address] PCP - General Internal Medicine 05/06/20 Maggy Swartz MD [address] [place] [address] Surgery, Neurosurgery 08/20/20 documented as of this encounter
--- OUTSIDE RECORDS SUMMARY | 2025-07-09 11:53 | XMS_ITS | Clinical Summary ---
Author Organization [facility] Address [address] [place] [address] Care Team Providers Care Hyperion Administrator Name Role Phone Hayden Man MD Primary Care Provider [phone] Maggy Swartz MD Unavailable [phone] Allergies No known active allergies Medications [...] 86 12/12/2020 9:00 AM EST Temperature 36.7 C (98.1 F) 12/22/2020 10:35 AM EST Respiratory Rate 18 09/10/2020 1:15 PM EST [...] this topic Medical Devices Implanted Type Area Global Cmo Device Identifier Shelf Expiration Date Model / Serial / Lot [id number] Spacer Spinal 02dxh80al Cpstn Peek Ptc Lmbr Intrbd Fs Sterl - [id number] Implanted:Qty: 1 on 09/08/2020 by Maggy Swartz MD at [facility] Cage N/A: Spine Lumbar [employer] MINIMALLY INVASIVE T 10/20/2026 [id number] / / [id number] Ashok Spinal 70mm 5.5mm Cd Hzn Crv Ti Cp4 Nonst - [id number] Implanted:Qty: 2 on 09/08/2020 by Maggy Swartz MD at [facility] Nail/Ashok N/A: Spine Lumbar [employer] MINIMALLY INVASIVE T [id number] / / [id number] Screw Bone Spine Solera Cd Hzn 40mm Cocr 5.5mm Ma Nonst 5.5 - [id number] Implanted:Qty: 2 on 09/08/2020 by Maggy Swartz MD at [facility] Spine N/A: Spine Lumbar [employer] MINIMALLY INVASIVE T [id number] / / [id number] Screw Bone Spine Cd Hzn Solera 45mm Ti Cocr 5.5mm Ma Nonst - [id number] Implanted:Qty: 4 on 09/08/2020 by Maggy Swartz MD at [facility] Spine N/A: Spine Lumbar [employer] MINIMALLY INVASIVE T [id number] / / [id number] Screw Set Ti Spine Brk Off Cd Hzn Nonst 5.5 Mm Ashok - [id number] Implanted:Qty: 6 on 09/08/2020 by Maggy Swartz MD at [facility] Spine N/A: Spine Lumbar [employer] MINIMALLY INVASIVE T [id number] / / [id number] Filler Bone Void 10cc Dbx Algrf Frzdr Putty - [id number] Implanted:Qty: 1 on 09/08/2020 by Maggy Swartz MD at [facility] Void Filler N/A: Spine Lumbar MUSCULOSKELETAL TRANSPLANT FOU 03/19/2022 [id number] / [id number] / [id number] Filler Bone Void 10cc Dbx Algrf Frzdr Putty - [id number] Implanted:Qty: 1 on 09/08/2020 by Maggy Swartz MD at [facility] Void Filler N/A: Spine Lumbar [employer]OSKELETAL TRANSPLANT FOU 12/13/2021 [id number] / [id number] / [id number] Filler Bone Void 10cc Dbx Algrf Frzdr Putty - [id number] Implanted:Qty: 1 on 09/08/2020 by Maggy Swartz MD at [facility] Void Filler N/A: Spine Lumbar [employer]KELETAL TRANSPLANT FOU 03/19/2022 [id number] / [id number] / Insurance [facility] Advance Directives * Full Code (Latest Code Status on File) Date Activated Date Inactivated Comments 09/08/2020 8:09 PM * Full Code Date Activated Date Inactivated Comments 09/08/2020 9:46 AM 09/08/2020 8:09 PM * Full Code Date Activated Date Inactivated Comments 06/25/2020 3:59 PM 09/08/2020 9:10 AM * Full Code Date Activated Date Inactivated Comments 06/25/2020 8:24 AM 06/25/2020 3:59 PM Care Teams Hyperion Administrator Relationship Specialty Start Date End Date Hayden Man MD [address] [place] [address] 101 [place] [address] PCP - General Internal Medicine 05/06/20 Maggy Swartz MD [address] [place] [address] Surgery, Neurosurgery 08/20/20
== END 2025-07-09 10:57 | disposition home or self-care (01) ==
LOC: HO.HOS 10:10
PROVIDERS: PCP Internal Medicine; Visit Provider Orthopaedic Surgery
DX: S52.502K Unspecified fracture of the lower end of left radius, subsequent encounter for closed fracture with nonunion (principal); R29.6 Repeated falls; G89.4 Chronic pain syndrome; Z72.0 Tobacco use
CPT/HCPCS: 99214

== ENCOUNTER → 2025-07-09 10:09 | Outpatient (BNVA) | payer MEDICARE, MEDICAID, SELFPAY | PROVIDERS: PCP Internal Medicine; Visit Provider Orthopaedic Surgery | DX: S52.502K Unspecified fracture of the lower end of left radius, subsequent encounter for closed fracture with nonunion (principal); R29.6 Repeated falls; G89.4 Chronic pain syndrome; Z72.0 Tobacco use | CPT/HCPCS: 99212 ==

== ENCOUNTER 2025-07-12 10:35 | Outpatient (REF) | payer MEDICARE, MEDICAID, SELFPAY ==
[2025-07-12 10:52] LABS: MANUAL DIFF FLAG NO
[2025-07-12 11:17] LABS: Hematocrit 38.7 % (37.0-47.0); Hemoglobin 12.8 g/dl (12.0-16.0); Imm Gran Abs Auto 0.01 X10*3/uL (0.00-0.03); Imm Gran Pct Auto 0.2 % (0.0-0.4); Lymphocytes Absolute Auto 1.0 X10*3/uL (1.2-4.9); Mean Corpuscular HGB Conc 33.1 g/dl (31.0-35.0); Mean Corpuscular Hemoglobin 32.9 pg (27.0-33.0); Mean Corpuscular Volume 99.5 fL (80.0-98.0); NRBC Abs Auto 0.000 X10*3/uL (0.0-0.012); NRBC Pct Auto 0.0 /100WBC (0.0-0.2); Platelet Count 309 X10*3/uL (160-400); Red Blood Count 3.89 X10*6/uL (4.20-5.50); White Blood Count 4.0 X10*3/uL (4.8-10.8)
[2025-07-12 11:24] LABS: Appearance Urine Clear; Glucose Urine UA Negative (Negative); PH 6.0 (5.0-9.0); Specific Gravity - Urine 1.015 (1.005-1.025); UMIC TRIGGER UACC YES
[2025-07-12 11:27] LABS: UACC Culture Trigger YES
--- OUTSIDE RECORDS SUMMARY | 2025-07-12 12:13 | XMS_ITS | Clinical Summary ---
Author Organization [facility] Address [address] [place] [address] Care Team Providers Care Infantry Unit Leader Name Role Phone Hayden Man MD Primary Care Provider [phone] Maggy Swartz MD Unavailable [phone] Allergies No known active allergies Medications [...] Vaccine (1 of 2) 2012 Influenza Vaccine 05/31/2025 08/26/2019 COVID-19 Vaccine ( - 2023-2 5 season) 2025 RSV Vaccine 60 years and old er and Patients (1 - 1-dose 75+ series) 2037 Hepatitis B Vaccines Aged Out No long er eligible based on patient's age to complete this topic Medical Devices Implanted Type Area Receiving Clerk Device Identifier Shelf Expiration Date Model / Serial / Lot [id number] Spacer Spinal 39gaz06th Cpstn Peek Ptc Lmbr Intrbd Fs Sterl - [id number] Implanted:Qty: 1 on 09/08/2020 by Maggy Swartz MD at [facility] Cage N/A: Spine Lumbar [employer] MINIMALLY INVASIVE T 10/20/2026 [id number] / / [id number] Ashok Spinal 70mm 5.5mm Cd Hzn Crv Ti Cp4 Nonst - [id number] Implanted:Qty: 2 on 09/08/2020 by Maggy Swartz MD at [facility] Nail/Ashok N/A: Spine Lumbar [employer] MINIMALLY INVASIVE T [id number] / / [id number] Screw Bone Spine Solera Cd Hzn 40mm Cocr 5.5mm Ma Nonst 5.5 - [id number] Implanted:Qty: 2 on 09/08/2020 by Maggy Swartz MD at [facility] Spine N/A: Spine Lumbar [employer] MINIMALLY INVASIVE T [id number] / / [id number] Screw Bone Spine Cd Hzn Solera 45mm Ti Cocr 5.5mm Ma Nonst - [id number] Implanted:Qty: 4 on 09/08/2020 by Maggy Swartz MD at [facility] Spine N/A: Spine Lumbar [employer] MINIMALLY INVASIVE T [id number] / / [id number] Screw Set Ti Spine Brk Off Cd Hzn Nonst 5.5 Mm Ashok - [id number] Implanted:Qty: 6 on 09/08/2020 by Maggy Swartz MD at [facility] Spine N/A: Spine Lumbar [employer] MINIMALLY INVASIVE T [id number] / / [id number] Filler Bone Void 10cc Dbx Algrf Frzdr Putty - [id number] Implanted:Qty: 1 on 09/08/2020 by Maggy Swartz MD at [facility] Void Filler N/A: Spine Lumbar [employer]OSKELETAL TRANSPLANT FOU 03/19/2022 [id number] / [id number] / [id number] Filler Bone Void 10cc Dbx Algrf Frzdr Putty - [id number] Implanted:Qty: 1 on 09/08/2020 by Maggy Swartz MD at [facility] Void Filler N/A: Spine Lumbar [employer]OSKELETAL TRANSPLANT FOU 12/13/2021 [id number] / [id number] / [id number] Filler Bone Void 10cc Dbx Algrf Frzdr Putty - [id number] Implanted:Qty: 1 on 09/08/2020 by Maggy Swartz MD at [facility] Void Filler N/A: Spine Lumbar MUSCULOSKELETAL TRANSPLANT FOU 03/19/2022 [id number] / [id number] / Insurance [facility] Advance Directives * Full Code (Latest Code Status on File) Date Activated Date Inactivated Comments 09/08/2020 8:09 PM * Full Code Date Activated Date Inactivated Comments 09/08/2020 9:46 AM 09/08/2020 8:09 PM * Full Code Date Activated Date Inactivated Comments 06/25/2020 3:59 PM 09/08/2020 9:10 AM * Full Code Date Activated Date Inactivated Comments 06/25/2020 8:24 AM 06/25/2020 3:59 PM Care Teams Infantry Unit Leader Relationship Specialty Start Date End Date Hayden Man MD [address] [place] [address] 101 [place] [address] PCP - General Internal Medicine 05/06/20 Maggy Swartz MD [address] [place] [address] Surgery, Neurosurgery 08/20/20
--- OUTSIDE RECORDS SUMMARY | 2025-07-12 12:13 | XMS_ITS | Encounter Summary ---
Author Organization [facility] Address [address] [place] [address] Care Team Providers Care Vending Machine Host/Hostess Name Role Phone Hayden Man MD Primary Care Provider [phone] Maggy Swartz MD Unavailable [phone] Reason for Visit * Reason Comments Medication Refill Encounter Details Date Type Department Care Team (Late st Contact Info) Description 09/27/2020 Refill [facility] Neurosurgery [address] [place] [phone] Bibi Maza PA Valid Address Needed Lumbar [...] myelopathy documented in this encounter Care Teams Vending Machine Host/Hostess Relationship Specialty Start Date End Date Hayden Man MD [address] [place] [address] 101 [place] [address] PCP - General Internal Medicine 05/06/20 Maggy Swartz MD [address] [place] [address] Surgery, Neurosurgery 08/20/20 documented as of this encounter
--- OUTSIDE RECORDS SUMMARY | 2025-07-12 12:13 | XMS_ITS | Encounter Summary ---
Author Organization [facility] Address [address] [place] [address] Care Team Providers Care Fabric Sourcer Name Role Phone Hayden Man MD Primary Care Provider [phone] Maggy Swartz MD Unavailable [phone] Encounter Details Date Type Department Care Team (Late st Contact Info) Description 12/16/2020 Scanned Document [facility] Neurosurgery [address] [place] [address] Bibi Maza PA Valid Address Needed Social [...] on filedocumented in this encounter Care Teams Fabric Sourcer Relationship Specialty Start Date End Date Hayden Man MD [address] [place] [address] [place] [address] PCP - General Internal Medicine 05/06/20 Maggy Swartz MD [address] [place] [address] Surgery, Neurosurgery 08/20/20 documented as of this encounter
--- OUTSIDE RECORDS SUMMARY | 2025-07-12 12:13 | XMS_ITS | Encounter Summary ---
Author Organization [address] [address] Care Team Providers Care Supervisor Baking Name Role Phone Hayden Man MD Primary Care Provider [phone] Maggy Swartz MD Unavailable [phone] Encounter Details Date Type Department Care Team (Late st Contact Info) Description 09/17/2020 Scanned Document [facility] Neurosurgery [place] [address] [facility] [address] [place] [phone] Maggy Swartz MD 85 [facility] [place] [address] [place] [address] Social History Tobacco Use Types Packs/Day Years [...] on filedocumented in this encounter Care Teams Supervisor Baking Relationship Specialty Start Date End Date Hayden Man MD [address] [place] [address] Dr [address] [place] [address] PCP - General Internal Medicine 05/06/20 Maggy Swartz MD [address] [place] [address] Surgery, Neurosurgery 08/20/20 documented as of this encounter
--- OUTSIDE RECORDS SUMMARY | 2025-07-12 12:13 | XMS_ITS | Encounter Summary ---
Author Organization [facility] Address [address] [place] [address] Care Team Providers Care Bottoming Room Supervisor Name Role Phone Hayden Man MD Primary Care Provider [phone] Maggy Swartz MD Unavailable [phone] Encounter Details Date Type Department Care Team (Late st Contact Info) Description 02/02/2021 Scanned Document [facility] Neurosurgery [place] [address] [address] Maggy Swartz MD [address] [address] Social History Tobacco Use Types Packs/Day Years [...] on filedocumented in this encounter Care Teams Bottoming Room Supervisor Relationship Specialty Start Date End Date Hayden Man MD [address] [place] [address] Dr Vo Vida AkersYOHANNES [place] [address] PCP - General Internal Medicine 05/06/20 Maggy Swartz MD [address] [place] [address] Surgery, Neurosurgery 08/20/20 documented as of this encounter
--- OUTSIDE RECORDS SUMMARY | 2025-07-12 12:13 | XMS_ITS | Encounter Summary ---
Author Organization [facility] Address [address] [place] [address] Care Team Providers Care Aerial Sprayer Name Role Phone Hayden Man MD Primary Care Provider [phone] Maggy Swartz MD Unavailable [phone] Encounter Details Date Type Department Care Team (Late st Contact Info) Description 12/16/2020 Scanned Document [facility] Neurosurgery [address] [place] [address] Bibi Maza PA Valid Address Needed Social [...] on filedocumented in this encounter Care Teams Aerial Sprayer Relationship Specialty Start Date End Date Hayden Man MD [address] [place] [address] [place] [address] PCP - General Internal Medicine 05/06/20 Maggy Swartz MD [address] [place] [address] Surgery, Neurosurgery 08/20/20 documented as of this encounter
--- OUTSIDE RECORDS SUMMARY | 2025-07-12 12:13 | XMS_ITS | Encounter Summary ---
Author Organization [address] [address] Care Team Providers Care Breakdown Worker Name Role Phone Hayden Man MD Primary Care Provider [phone] Maggy Swartz MD Unavailable [phone] Encounter Details Date Type Department Care Team (Late st Contact Info) Description 08/22/2020 Scanned Document [facility] Neurosurgery [place] 85 [facility] [address] [place] [address] Maggy Swartz MD 85 [facility] [place] [address] [place] [address] Social History Tobacco Use Types Packs/Day Years [...] on filedocumented in this encounter Care Teams Breakdown Worker Relationship Specialty Start Date End Date Hayden Man MD [address] [place] [address] Dr [address] [place] [address] PCP - General Internal Medicine 05/06/20 Maggy Swartz MD [address] [place] [address] Surgery, Neurosurgery 08/20/20 documented as of this encounter
--- OUTSIDE RECORDS SUMMARY | 2025-07-12 12:13 | XMS_ITS | Encounter Summary ---
Author Organization [facility] Address [address] [place] [address] Care Team Providers Care Pot Room Tapper Name Role Phone Hayden Man MD Primary Care Provider [phone] Maggy Swartz MD Unavailable [phone] Encounter Details Date Type Department Care Team (Late st Contact Info) Description 12/16/2020 Scanned Document [facility] Neurosurgery [address] [place] [address] Bibi Maza PA Valid Address Needed Social [...] on filedocumented in this encounter Care Teams Pot Room Tapper Relationship Specialty Start Date End Date Hayden Man MD [address] [place] [address] [place] [address] PCP - General Internal Medicine 05/06/20 Maggy Swartz MD [address] [place] [address] Surgery, Neurosurgery 08/20/20 documented as of this encounter
--- OUTSIDE RECORDS SUMMARY | 2025-07-12 12:13 | XMS_ITS | Encounter Summary ---
Author Organization [facility] Address [address] [place] [address] Care Team Providers Care Earth Moving Technician Name Role Phone Hayden Man MD Primary Care Provider [phone] Maggy Swartz MD Unavailable [phone] Encounter Details Date Type Department Care Team (Late st Contact Info) Description 09/11/2021 Scanned Document [facility] Neurosurgery [place] [address] [address] Maggy Swartz MD [address] [address] Social History Tobacco Use Types Packs/Day Years [...] on filedocumented in this encounter Care Teams Earth Moving Technician Relationship Specialty Start Date End Date Hayden Man MD [address] [place] [address] [place] [address] PCP - General Internal Medicine 05/06/20 Maggy Swartz MD [address] [place] [address] Surgery, Neurosurgery 08/20/20 documented as of this encounter
--- OUTSIDE RECORDS SUMMARY | 2025-07-12 12:13 | XMS_ITS | Encounter Summary ---
Author Organization [facility] Address [address] [place] [address] Care Team Providers Care Life Skills Consultant Name Role Phone Hayden Man MD Primary Care Provider [phone] Maggy Swartz MD Unavailable [phone] Encounter Details Date Type Department Care Team (Late st Contact Info) Description 07/22/2021 Scanned Document [facility] Neurosurgery [place] [address] [address] Maggy Swartz MD [address] [address] Social History Tobacco Use Types Packs/Day Years [...] in this encounter Care Teams Life Skills Consultant Relationship Specialty Start Date End Date Hayden Man MD [address] [place] [address] [place] [address] PCP - General Internal Medicine 05/06/20 Maggy Swartz MD [address] [place] [address] Surgery, Neurosurgery 08/20/20 documented as of this encounter
--- OUTSIDE RECORDS SUMMARY | 2025-07-12 12:13 | XMS_ITS | Encounter Summary ---
Author Organization [facility] Address [address] [place] [address] Phone Care Team Providers Care Airport Operations Officer Name Role Phone Hayden Man MD Primary Care Provider Encounter Details Date Type Department Care Team (Late st Contact Info) Description 10/13/2023 Procedure Pass [facility] [address] [place] [address] Social History Tobacco Use Types Packs/Day Years [...] on filedocumented in this encounter Care Teams Airport Operations Officer Relationship Specialty Start Date End Date Hayden Man MD [address] [place] [address] [place] [address] PCP - General Internal Medicine 07/18/17 documented as of this encounter Additional Source Comments The information contained in this document represents components of the legal health record. It is not the complete legal health record.[facility]
--- OUTSIDE RECORDS SUMMARY | 2025-07-12 12:13 | XMS_ITS | Encounter Summary ---
Author Organization [facility] Address [address] [place] [address] Care Team Providers Care Roof Foreman Name Role Phone Hayden Man MD Primary Care Provider [phone] Maggy Swartz MD Unavailable [phone] Encounter Details Date Type Department Care Team (Late st Contact Info) Description 02/02/2021 Scanned Document [facility] Neurosurgery [place] [address] [address] Maggy Swartz MD [address] [address] Social History Tobacco Use Types Packs/Day Years [...] filedocumented in this encounter Care Teams Roof Foreman Relationship Specialty Start Date End Date Hayden Man MD [address] [place] [address] Dr Vo Vida AkersYOHANNES [place] [address] PCP - General Internal Medicine 05/06/20 Maggy Swartz MD [address] [place] [address] Surgery, Neurosurgery 08/20/20 documented as of this encounter
--- OUTSIDE RECORDS SUMMARY | 2025-07-12 12:13 | XMS_ITS | Clinical Summary ---
Author Organization [facility] Address [address] [place] [address] Phone Care Team Providers Care Scarfing Machine Operator Name Role Phone Po, Hayden Mckeon MD Primary Care Provider [phone] Allergies No known active allergies Medications LEVOTHYROXINE SODIUM (LEVOTHYROXINE ORAL) Take 88 mcg by mouth. Active CYANOCOBALAMIN, VITAMIN B-12, (VITAMIN B-12 ORAL) Take by mouth. Active MAGNESIUM ORAL Take by mouth. Active gabapentin (NEURONTIN) 600 MG tablet Take 600 mg by mouth 4 (four) times a day as needed. Active ferrous sulfate 325 mg (65 mg confederated salish iron) tablet Take 325 mg by mouth [...] topic Medical Devices Not on file Insurance [employer] MEDICARE PART A & B [facility] [place] [id number] MEDICARE PART A & B [place] [id number] MEDICARE PART A & B [place] A & B [facility] Address: [address] [address] [place] [address] Care Teams Scarfing Machine Operator Relationship Specialty Start Date End Date Hayden Man MD [address] [place] [address] PCP - General Internal Medicine 07/18/17 Additional Source Comments The information contained in this document represents components of the legal health record. It is not the complete legal health record.[facility]
--- OUTSIDE RECORDS SUMMARY | 2025-07-12 12:13 | XMS_ITS | Encounter Summary ---
Author Organization [facility] Address [address] [place] [address] Care Team Providers Care Desizing Machine Operator Name Role Phone Hayden Man MD Primary Care Provider [phone] Maggy Swartz MD Unavailable [phone] Reason for Visit * Reason Comments Other Encounter Details Date Type Department Care Team (Late st Contact Info) Description 04/03/2021 Telephone [facility] Urologic Surgery [address] [phone] Hardik Reese MD [address] [place] [address] Other Social History Tobacco Use Types [...] Ct abdomen with and without contrast to [facility]. documented in this encounter Plan of Treatment Not on file documented as of this encounter Visit Diagnoses Not on filedocumented in this encounter Care Teams Desizing Machine Operator Relationship Specialty Start Date End Date Hayden Man MD [address] [place] [address] 101 [place] [address] PCP - General Internal Medicine 05/06/20 Maggy Swartz MD [address] [place] [address] Surgery, Neurosurgery 08/20/20 documented as of this encounter
[2025-07-12 12:37] LABS: Alanine Aminotransferase 21 U/L (0-31); Albumin Level 4.5 g/dL (3.5-5.0); Alkaline Phosphatase 85 U/L (39-117); Anion Gap 14 (12-20); Aspartate Amino Transferase 22 U/L (5-31); Blood Urea Nitrogen 10 mg/dL (9-16); Calcium 9.5 mg/dL (8.4-10.2); Carbon Dioxide 28 mmol/L (22-29); Chloride 103 mmol/L (96-108); Cholesterol 176 mg/dL (<200); Estimated Glomerular Filt Rate > 60; HDL Cholesterol 58 mg/dL (>40); Potassium 4.7 mmol/L (3.3-5.1); Sodium 140 mmol/L (135-145); Total Protein 7.1 g/dL (6.5-8.0); Triglycerides 84 mg/dL (<150)
[2025-07-12 13:04] LABS: Free T4 (Free Thyroxine) 1.10 ng/dL (0.71-1.85); Thyroid Stimulating Hormone 1.92 uIU/mL (0.32-4.0)
[2025-07-12 13:06] LABS: Folate 14.5 ng/mL (> or = 4.0); Vitamin B12 1798 pg/mL (200-900)
== END 2025-07-12 10:36 | disposition home or self-care (01) ==
LOC: HO.LAB 10:35
PROVIDERS: PCP Internal Medicine; Visit Provider Internal Medicine
DX: E03.9 Hypothyroidism, unspecified (principal); E78.00 Pure hypercholesterolemia, unspecified
CPT/HCPCS: 36415; 80053; 80061; 81001; 82306; 82607; 82746; 84439; 84443; 85025; 87086

== ENCOUNTER 2025-07-17 12:42 | Outpatient (REF) | payer MEDICARE, MEDICAID, SELFPAY ==
--- NOTE | 2025-07-17 14:24 | EEG_ITS ---
Roomed Performed: 1St floor Lab Reason: Syncope / Collapse History: H/O multiple chronic conditions including hypothyroidism, complex regional pain syndrome, and postlaminectomy syndrome, H/O hypothyroidism and is currently on thyroid medication. The patient reports a history of lumbar discectomy and subsequent development of postlaminectomy syndrome, which has been managed with pain management interventions, H/O complex regional pain syndrome of the left lower limb. Patient having multiple event of syncopal episodes with no warning, duration of events are unknown- pt sates that she is altered after the events- no shaking or incontinence noted with events- last one was a few weeks ago Medication: list not available Technical description Photic stimulation: completed Hyperventilation: performed- good effort Behavioral state: pleasant - followed commands State of Consciousness: awake and asleep Skull defect: No Sedation: No Handedness: Right Duration of study: 31 mins 50 secc Description: The waking background activity consists of a moderate voltage 10 hertz posterior alpha frequency that is seen symmetrically and attenuates well with eye opening while low-voltage fast frequencies predominate anteriorly. Photic stimulation is without activation. Hyperventilation does not produce any change in the background activity. Drowsiness is characterized by diffuse theta slowing. No focal, lateralizing or paroxysmal discharges are seen. Impression: This awake and drowsy EEG is within normal limits MTDD
--- OUTSIDE RECORDS SUMMARY | 2025-07-17 16:08 | XMS_ITS | Encounter Summary ---
Author Organization [facility] Address [address] [place] [address] Care Team Providers Care Care Technician Name Role Phone Hayden Man MD Primary Care Provider [phone] Maggy Swartz MD Unavailable [phone] Encounter Details Date Type Department Care Team (Late st Contact Info) Description 09/11/2021 Scanned Document [facility] Neurosurgery [place] [address] [address] Maggy Swartz MD [address] [address] Social History Tobacco Use Types Packs/Day Years [...] on filedocumented in this encounter Care Teams Care Technician Relationship Specialty Start Date End Date Hayden Man MD [address] [place] [address] [place] [address] PCP - General Internal Medicine 05/06/20 Maggy Swartz MD [address] [place] [address] Surgery, Neurosurgery 08/20/20 documented as of this encounter
--- OUTSIDE RECORDS SUMMARY | 2025-07-17 16:08 | XMS_ITS | Encounter Summary ---
Author Organization [facility] Address [address] [place] [address] Care Team Providers Care Field Party Manager Name Role Phone Hayden Man MD Primary Care Provider [phone] Maggy Swartz MD Unavailable [phone] Encounter Details Date Type Department Care Team (Late st Contact Info) Description 12/16/2020 Scanned Document [facility] Neurosurgery [address] [place] [address] Bibi Maza PA Valid Address Needed Social [...] on filedocumented in this encounter Care Teams Field Party Manager Relationship Specialty Start Date End Date Hayden Man MD [address] [place] [address] [place] [address] PCP - General Internal Medicine 05/06/20 Maggy Swartz MD [address] [place] [address] Surgery, Neurosurgery 08/20/20 documented as of this encounter
--- OUTSIDE RECORDS SUMMARY | 2025-07-17 16:08 | XMS_ITS | Encounter Summary ---
Author Organization [facility] Address [address] [place] [address] Care Team Providers Care Warehouse Clerk Name Role Phone Hayden Man MD Primary Care Provider [phone] Maggy Swartz MD Unavailable [phone] Encounter Details Date Type Department Care Team (Late st Contact Info) Description 12/16/2020 Scanned Document [facility] Neurosurgery [address] [place] [address] Bibi Maza PA Valid Address Needed Social [...] on filedocumented in this encounter Care Teams Warehouse Clerk Relationship Specialty Start Date End Date Hayden Man MD [address] [place] [address] [place] [address] PCP - General Internal Medicine 05/06/20 Maggy Swartz MD [address] [place] [address] Surgery, Neurosurgery 08/20/20 documented as of this encounter
--- OUTSIDE RECORDS SUMMARY | 2025-07-17 16:08 | XMS_ITS | Encounter Summary ---
Author Organization [address] [address] Care Team Providers Care Distribution Coordinator Name Role Phone Hayden Man MD Primary Care Provider [phone] Maggy Swartz MD Unavailable [phone] Encounter Details Date Type Department Care Team (Late st Contact Info) Description 08/22/2020 Scanned Document [facility] Neurosurgery [place] 85 [facility] [address] [place] [address] Maggy Swartz MD 85 [facility] [place] [address] [place] [address] Social History Tobacco Use Types Packs/Day Years [...] on filedocumented in this encounter Care Teams Distribution Coordinator Relationship Specialty Start Date End Date Hayden Man MD [address] [place] [address] Dr [address] [place] [address] PCP - General Internal Medicine 05/06/20 Maggy Swartz MD [address] [place] [address] Surgery, Neurosurgery 08/20/20 documented as of this encounter
--- OUTSIDE RECORDS SUMMARY | 2025-07-17 16:08 | XMS_ITS | Encounter Summary ---
Author Organization [facility] Address [address] [place] [address] Care Team Providers Care Truck Greaser Name Role Phone Hayden Man MD Primary Care Provider [phone] Maggy Swartz MD Unavailable [phone] Reason for Visit * Reason Comments Medication Refill Encounter Details Date Type Department Care Team (Late st Contact Info) Description 09/27/2020 Refill [facility] Neurosurgery [address] [place] [address] Bibi Maza PA Valid Address Needed Lumbar [...] myelopathy documented in this encounter Care Teams Truck Greaser Relationship Specialty Start Date End Date Hayden Man MD [address] [place] [address] [address] [place] [address] PCP - General Internal Medicine 05/06/20 Maggy Swartz MD [address] [place] [address] Surgery, Neurosurgery 08/20/20 documented as of this encounter
--- OUTSIDE RECORDS SUMMARY | 2025-07-17 16:08 | XMS_ITS | Encounter Summary ---
Author Organization [facility] Address [address] [place] [address] Care Team Providers Care Blanket Winder Helper Name Role Phone Hayden Man MD Primary Care Provider [phone] Maggy Swartz MD Unavailable [phone] Encounter Details Date Type Department Care Team (Late st Contact Info) Description 12/16/[address] [facility] Neurosurgery [address] [place] [address] Bibi Maza PA Valid Address Needed Social [...] on filedocumented in this encounter Care Teams Blanket Winder Helper Relationship Specialty Start Date End Date Hayden Man MD [address] [place] [address] [place] [address] PCP - General Internal Medicine 05/06/20 Maggy Swartz MD [address] [place] [address] Surgery, Neurosurgery 08/20/20 documented as of this encounter
--- OUTSIDE RECORDS SUMMARY | 2025-07-17 16:08 | XMS_ITS | Encounter Summary ---
Author Organization [address] [address] Care Team Providers Care Industry Consultant Name Role Phone Hayden Man MD Primary Care Provider [phone] Maggy Swartz MD Unavailable [phone] Encounter Details Date Type Department Care Team (Late st Contact Info) Description 09/17/2020 Scanned Document [facility] Neurosurgery [place] [address] [facility] [address] [place] [address] Maggy Swartz MD 85 [facility] [place] [address] [place] [address] Social History Tobacco Use Types Packs/Day Years [...] on filedocumented in this encounter Care Teams Industry Consultant Relationship Specialty Start Date End Date Hayden Man MD [address] [place] [address] Dr [address] [place] [address] PCP - General Internal Medicine 05/06/20 Maggy Swartz MD [address] [place] [address] Surgery, Neurosurgery 08/20/20 documented as of this encounter
--- OUTSIDE RECORDS SUMMARY | 2025-07-17 16:08 | XMS_ITS | Encounter Summary ---
Author Organization [facility] Address [address] [place] [address] Phone Care Team Providers Care Supervisor Cutting Department Name Role Phone Hayden Man MD Primary Care Provider [phone] Encounter Details Date Type Department Care Team (Late st Contact Info) Description 10/13/2023 Procedure Pass [facility] [address] [place] [address] Social History Tobacco Use Types Packs/Day Years [...] filedocumented in this encounter Care Teams Supervisor Cutting Department Relationship Specialty Start Date End Date Hayden Man MD [address] [place] [address] [place] [address] PCP - General Internal Medicine 07/18/17 documented as of this encounter Additional Source Comments The information contained in this document represents components of the legal health record. It is not the complete legal health record.[facility]
--- OUTSIDE RECORDS SUMMARY | 2025-07-17 16:08 | XMS_ITS | Clinical Summary ---
Author Organization [facility] Address [address] [place] [address] Phone Care Team Providers Care Public Affairs Manager Name Role Phone Po, Hayden Mckeon MD Primary Care Provider [phone] Allergies No known active allergies Medications LEVOTHYROXINE SODIUM (LEVOTHYROXINE ORAL) Take 88 mcg by mouth. Active CYANOCOBALAMIN, VITAMIN B-12, (VITAMIN B-12 ORAL) Take by mouth. Active MAGNESIUM ORAL Take by mouth. Active gabapentin (NEURONTIN) 600 MG tablet Take 600 mg by mouth 4 (four) times a day as needed. Active ferrous sulfate 325 mg (65 mg algaaciq iron) tablet Take 325 mg by mouth [...] topic Medical Devices Not on file Insurance [employer] MEDICARE PART A & B [facility] [place] [id number] MEDICARE PART A & B [place] [id number] MEDICARE PART A & B [place] A & B [employer] [facility] Care Teams Public Affairs Manager Relationship Specialty Start Date End Date Hayden Man MD [address] [place] [address] PCP - General Internal Medicine 07/18/17 Additional Source Comments The information contained in this document represents components of the legal health record. It is not the complete legal health record.[facility]
--- OUTSIDE RECORDS SUMMARY | 2025-07-17 16:08 | XMS_ITS | Encounter Summary ---
Author Organization [facility] Address [address] [place] [address] Care Team Providers Care Fish Butcher Name Role Phone Hayden Man MD Primary Care Provider [phone] Maggy Swartz MD Unavailable [phone] Encounter Details Date Type Department Care Team (Late st Contact Info) Description 02/02/2021 Scanned Document [facility] Neurosurgery [place] [address] [address] Maggy Swartz MD [address] [address] Social History Tobacco Use Types Packs/Day Years [...] on filedocumented in this encounter Care Teams Fish Butcher Relationship Specialty Start Date End Date Hayden Man MD [address] [place] [address] Dr Vo Vida [place] [address] PCP - General Internal Medicine 05/06/20 Maggy Swartz MD [address] [place] [address] Surgery, Neurosurgery 08/20/20 documented as of this encounter
--- OUTSIDE RECORDS SUMMARY | 2025-07-17 16:08 | XMS_ITS | Encounter Summary ---
Author Organization [facility] Address [address] [place] [address] Care Team Providers Care Furrier Designer Name Role Phone Hayden Man MD Primary Care Provider [phone] Maggy Swartz MD Unavailable [phone] Encounter Details Date Type Department Care Team (Late st Contact Info) Description 03/24/2021 Scanned Document [facility] Neurosurgery [address] [address] Bibi Maza PA Valid Address [...] on filedocumented in this encounter Care Teams Furrier Designer Relationship Specialty Start Date End Date Hayden Man MD [address] [place] [address] [place] [address] PCP - General Internal Medicine 05/06/20 Maggy Swartz MD [address] [place] [address] Surgery, Neurosurgery 08/20/20 documented as of this encounter
--- OUTSIDE RECORDS SUMMARY | 2025-07-17 16:08 | XMS_ITS | Clinical Summary ---
Author Organization [facility] Address [address] [place] [address] Care Team Providers Care Machine Adjuster Leader Case Trim Name Role Phone Hayden Man MD Primary Care Provider [phone] Maggy Swartz MD Unavailable [phone] Allergies No known active allergies Medications [...] this topic Medical Devices Implanted Type Area Photo Stylist Device Identifier Shelf Expiration Date Model / Serial / Lot [id number] Spacer Spinal [id number] Cpstn Peek Ptc Lmbr Intrbd Fs Sterl - [id number] Implanted:Qty: 1 on 09/08/2020 by Maggy Swartz MD at [facility] Cage N/A: Spine Lumbar [employer] MINIMALLY INVASIVE T 10/20/2026 [id number] / / [id number] Ashok Spinal 70mm 5.5mm Cd Hzn Crv Ti Cp4 Nonst - [id number] Implanted:Qty: 2 on 09/08/2020 by Maggy Swartz MD at [facility] Nail/Ashok N/A: Spine Lumbar [employer] MINIMALLY INVASIVE T [id number] / / [id number] Screw Bone Spine Solera Cd Hzn 40mm Cocr 5.5mm Ma Nonst 5.5 - [id number] Implanted:Qty: 2 on 09/08/2020 by Maggy Swartz MD at [facility] Spine N/A: Spine Lumbar [employer] MINIMALLY INVASIVE T [id number] / / [id number] Screw Bone Spine Cd Hzn Solera 45mm Ti Cocr 5.5mm Ma Nonst - [id number] Implanted:Qty: 4 on 09/08/2020 by Maggy Swartz MD at [facility] Spine N/A: Spine Lumbar [employer] MINIMALLY INVASIVE T [id number] / / [id number] Screw Set Ti Spine Brk Off Cd Hzn Nonst 5.5 Mm Ashok - [id number] Implanted:Qty: 6 on 09/08/2020 by Maggy Swartz MD at [facility] Spine N/A: Spine Lumbar [employer] MINIMALLY INVASIVE T [id number] / / [id number] Filler Bone Void 10cc Dbx Algrf Frzdr Putty - [id number] Implanted:Qty: 1 on 09/08/2020 by Maggy Swartz MD at [facility] Void Filler N/A: Spine Lumbar [employer] FOU 03/19/2022 [id number] / [id number] / [id number] Filler Bone Void 10cc Dbx Algrf Frzdr Putty - [id number] Implanted:Qty: 1 on 09/08/2020 by Maggy Swartz MD at [facility] Void Filler N/A: Spine Lumbar [employer] TR[employer] FOU 12/13/2021 [id number] / [id number] / [id number] Filler Bone Void 10cc Dbx Algrf Frzdr Putty - [id number] Implanted:Qty: 1 on 09/08/2020 by Maggy Swartz MD at [facility] Void Filler N/A: Spine Lumbar [employer]LET[employer] TRANSPLANT FOU 03/19/2022 [id number] / [id number] / Insurance [facility] Advance Directives * Full Code (Latest Code Status on File) Date Activated Date Inactivated Comments 09/08/2020 8:09 PM * Full Code Date Activated Date Inactivated Comments 09/08/2020 9:46 AM 09/08/2020 8:09 PM * Full Code Date Activated Date Inactivated Comments 06/25/2020 3:59 PM 09/08/2020 9:10 AM * Full Code Date Activated Date Inactivated Comments 06/25/2020 8:24 AM 06/25/2020 3:59 PM Care Teams Machine Adjuster Leader Case Trim Relationship Specialty Start Date End Date Hayden Man MD [address] [place] [address] 101 [place] [address] PCP - General Internal Medicine 05/06/20 Maggy Swartz MD [address] [place] [address] Surgery, Neurosurgery 08/20/20
--- OUTSIDE RECORDS SUMMARY | 2025-07-17 16:08 | XMS_ITS | Encounter Summary ---
Author Organization [facility] Address [address] [place] [address] Care Team Providers Care Material Control Manager Name Role Phone Hayden Man MD Primary Care Provider [phone] Maggy Swartz MD Unavailable [phone] Encounter Details Date Type Department Care Team (Late st Contact Info) Description 07/22/2021 Scanned Document [facility] Neurosurgery [place] [address] [address] Maggy Swartz MD [address] [address] Social History Tobacco Use Types Packs/Day Years [...] on filedocumented in this encounter Care Teams Material Control Manager Relationship Specialty Start Date End Date Hayden Man MD [address] [place] [address] [place] [address] PCP - General Internal Medicine 05/06/20 Maggy Swartz MD [address] [place] [address] Surgery, Neurosurgery 08/20/20 documented as of this encounter
--- OUTSIDE RECORDS SUMMARY | 2025-07-17 16:08 | XMS_ITS | Encounter Summary ---
Author Organization [facility] Address [address] [place] [address] Care Team Providers Care Fiber Optic Central Office Installer Name Role Phone Hayden Man MD Primary Care Provider [phone] Maggy Swartz MD Unavailable [phone] Encounter Details Date Type Department Care Team (Late st Contact Info) Description 02/02/2021 Scanned Document [facility] Neurosurgery [place] [address] [address] Maggy Swartz MD [address] [address] Social History Tobacco Use Types Packs/Day Years [...] on filedocumented in this encounter Care Teams Fiber Optic Central Office Installer Relationship Specialty Start Date End Date Hayden Man MD [address] [place] [address] Dr Vo Vida Ak[place]ANNES [place] [address] PCP - General Internal Medicine 05/06/20 Maggy Swartz MD [address] [place] [address] Surgery, Neurosurgery 08/20/20 documented as of this encounter
--- OUTSIDE RECORDS SUMMARY | 2025-07-17 16:08 | XMS_ITS | Encounter Summary ---
Author Organization [facility] Address [address] [place] [address] Care Team Providers Care Safety Analyst Name Role Phone Hayden Man MD Primary Care Provider [phone] Maggy Swartz MD Unavailable [phone] Reason for Visit * Reason Comments Other Encounter Details Date Type Department Care Team (Late st Contact Info) Description 04/03/2021 Telephone [facility] Urologic Surgery [address] [phone] Hardik Reese MD [address] [place] [address] Other Social History Tobacco Use Types [...] Ct abdomen with and without contrast to [facility]. documented in this encounter Plan of Treatment Not on file documented as of this encounter Visit Diagnoses Not on filedocumented in this encounter Care Teams Safety Analyst Relationship Specialty Start Date End Date Hayden Man MD [address] [place] [address] 101 [place] [address] PCP - General Internal Medicine 05/06/20 Maggy Swartz MD [address] [place] [address] Surgery, Neurosurgery 08/20/20 documented as of this encounter
== END 2025-07-17 12:43 | disposition home or self-care (01) ==
LOC: HO.NEURO 12:42
PROVIDERS: PCP Internal Medicine; Visit Provider Nurse Practitioner Family
DX: R55 Syncope and collapse (principal)
CPT/HCPCS: 95816

== ENCOUNTER → 2025-07-17 14:24 | Outpatient (BNV) | payer MEDICARE, MEDICAID, SELFPAY | PROVIDERS: PCP Internal Medicine; Visit Provider Psychiatry & Neurology Neurology | DX: R55 Syncope and collapse (principal) | CPT/HCPCS: 95819 ==

== ENCOUNTER 2025-07-22 09:22 | Outpatient (AMB) | payer MEDICARE, MEDICAID, SELFPAY ==
--- NOTE | 2025-07-22 09:23 | A.OFFVIS_ITS ---
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 [employer] Required: No Allergies No Known Allergies (No Known Allergies*) Allergy (Verified 07/22/25 09:27) Medication List - Last Reconciled 07/22/25 by Jo Jean NP-C [toilet seat risers and Raised toilet seat As directed] alprazolam 0.25 mg PO DAILY ascorbate calcium (vitamin C) 500 mg PO DAILY aspirin (Adult Aspirin Regimen) 81 mg PO DAILY clotrimazole 1% 1 appl topical BID 4 weeks cyanocobalamin (vitamin B-12) 1,000 mcg PO .QOD duloxetine 90 mg (3 x 30 mg) PO DAILY 90 days gabapentin 1,800 mg (3 x 600 mg) PO BID ibuprofen 600 mg PO Q8H PRN levothyroxine 88 mcg PO QAM magnesium oxide 400 mg PO DAILY miscellaneous medical supply 1 ea miscellaneous DAILY [RAISED TOILET As directed] [Raised toilet seat As directed] [SHOWER Chair As directed] [toilet seat risers As directed] tramadol 50 mg PO DAILY triamcinolone acetonide 0.025% appl topical [WALK IN SHOWER As directed] [Wrist SPlints As directed] HPI HPI 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 Description of each event taken from recent neurology note by Tatyana Luciano: The Second incident occurred while a friend was removing sutures. During this episode, she was seated and allowed her friend, a nurse, to remove the sutures. She experienced a loss of consciousness for approximately 10 minutes. The patient indicated that she might have been hungry at that time. Upon regaining consciousness, she felt confused and tired and tried to decline hospital transport initially provided by emergency services. However, her friends called 911, and she was transported to [facility] ER. ER workup was unremarkable with normal labs, EKG, and head CT, and minimal left carotid plaque buildup in the left ICA. The First episode occurred a few weeks prior. She recalls taking an oxycodone painkiller for excruciating left lower leg pain due to Complex Regional Pain Syndrome (CRPS), after which she felt very tired. While seated on a bar-height chair, she gradually slid off the chair and lay on the floor. She estimates being unconscious or feeling out of it for around 15 to 20 minutes, at which point her daughter called, and the patient was able to reach her phone ( which had also fallen to the floor ). At that point, her son came over and they sat on the floor for another 45 minutes or so until she felt ready to get back up. She did not seek medical attention for this event Today she reports that she has known history of having syncopal events prior to these recent events. She does have some episodes of lightheadedness with quick position changes. Her blood pressure runs on the low side. No issues with heart palpitations, chest discomfort at rest or with activity, shortness of breath, orthopnea, edema. She has chronic pain in her left low back, hip, leg and foot and is being treated for complex regional pain syndrome. She has not had any recent medication changes in the last few weeks or months. She does drink 1 alcoholic beverage daily which is not new. She does not use any other illicit substances. She tries to remain physically active with working in her garden and activities around the house. No known family history of heart disease. Her mother had a stroke. She drinks 2-3 caffeinated teas in the morning and a large catheterization coffee in the afternoon. She hydrates well with water throughout the day. [facility] Medical History Breast cancer screening by mammogram Generalized anxiety disorder Left leg paresthesias Bacterial vaginosis Anxiety Opioid use disorder Chronic pain syndrome Postlaminectomy syndrome Complex regional pain syndrome i of left lower limb Primary osteoarthritis of left knee Tobacco abuse Renal lesion Closed left ankle fracture Cervical disc herniation Hypothyroidism Surgical History Hx of cervical discectomy H/O colonoscopy H/O lumbar discectomy Spinal stenosis History of left knee surgery Left ACL tear Family History Father No problems noted. 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 Cognitive needs: No Hearing needs: No Vision needs: No Review of Systems Const All systems reviewed & are unremarkable except as noted in HPI and below ENT Denies dizziness Card Denies chest pain, Denies chest pain at rest, Denies chest pain with activity, Denies rapid heart rate, Denies pedal edema, Denies edema, Denies leg edema, Denies lightheadedness, Denies palpitations, Denies dyspnea, Denies dyspnea on exertion and Denies orthopnea Resp Denies cough, Denies dyspnea and Denies dyspnea on exertion GI Denies hematochezia and Denies change in stool character Musc Denies abnormal gait, Denies limited range of motion, Denies muscle cramps, Denies muscle weakness, Denies numbness, Denies radiating pain into limb, Denies stiffness and Denies tingling Neuro Denies abnormal gait, Denies dizziness, Denies numbness and Denies tingling Endo Denies palpitations Physical Exam Vital Signs: Last Vital Signs Pulse 72 07/22/25 09:25 BP 90/62 07/22/25 09:25 BMI result Body Mass Index 28.6 Const General: cooperative, healthy appearing, comfortable and no acute distress Orientation/consciousness: patient oriented x3 Neck Neck: Yes normal visual inspection Resp Effort & Inspection: normal respiratory effort Auscultation: clear to auscultation bilaterally, no rales, no rhonchi and no wheezes Cardio Rate: regular rate Rhythm: regular rhythm Heart sounds: S1 normal heart sound present, S2 normal heart sound present, no gallops, no murmurs and no rubs Neuro General: patient oriented x3 Extrem General: Yes normal to inspection, No no pedal edema and No calf tenderness Psych Appearance: grossly normal Mental Status: mental status grossly normal Speech and movement: Normal speech and movement present Office Procedures EKG Details: Today, read by me, normal sinus rhythm, rate 72, QTC 420 milliseconds, normal AL and QRS intervals [id number], Complete Assessment & Plan Assessment & Plan (1) Syncope and collapse: Code(s): R55 - Syncope and collapse Category: Medical Plan: To recent syncopal events. The 1st episode could be hypotension related. The 2nd episode sounds clearly vasovagal with possible seizure type activity involvement. Her blood pressure does run on the low side. She is mildly orthostatic on check done by me today. Blood pressure sitting 108/68, standing 96/62. EKG shows sinus rhythm with normal QRS, QTC and AL intervals. Echocardiogram done 02/27/2025 was normal study. ER evaluation following 2nd syncopal type event without any acute findings. CTA of the head and neck 01/12/2025 showed no acute findings, minimal plaque in the left ICA with no hemodynamically significant stenosis. Reviewed test results with her. Discuss ed types of syncope including orthostatic hypotension and vasovagal syncope. Reviewed recognizing symptoms and sit/lay down until symptoms resolve. For her low blood pressure we discussed maintaining good hydration, adding salt to her diet. Unable to wear compression stockings as she has CRPS left leg. Will check Holter monitor to ensure there is no significant arrhythmia. Will check tilt-table test for further determination of syncope type. She is following with Neurology and plans to undergo an EEG in the near future. Cardiology follow-up 2-3 months, sooner if needed. (2) Vasovagal episode: Code(s): R55 - Syncope and collapse Category: Medical Plan: As above (3) Orthostatic hypotension: Code(s): I95.1 - Orthostatic hypotension Category: Medical Plan: As above Plan We discussed the potential causes of the patient's fainting episodes, including vasovagal syncope and low blood pressure. I recommended a Holter monitor and tilt table test to further evaluate her condition. We also talked about increasing fluid and salt intake to manage her low blood pressure. The patient was informed about the EEG to investigate seizure-like activity during her syncope episode. We discussed the challenges of managing her complex regional pain syndrome, particularly the intolerance to compression stockings. Orders: Orders ECG 5 day holter monitor Today R55 - Syncope and collapse ECG Tilt Table Test Today R55 - Syncope and collapse Patient Instructions: - Increase fluid and salt intake to manage low blood pressure. - Monitor for symptoms of fainting and sit or lie down if feeling faint. - Follow up with scheduled EEG and Holter monitor tests. Patient was informed and verbally consented to the use of an ambient scribe for clinic note documentation during this visit. Visit time spent on chart review, interview, assessment, orders, documentation. Coding Level of Care Code New Pt Level 4 (45171) Complex EM visit Add On G2211 Diagnoses Syncope and collapse R55 Vasovagal episode R55 Orthostatic hypotension I95.1 CPT Codes EKG - CPT: 57392-[id number], Complete ([id number]) Time Spent (min) 30
[2025-07-22 09:25] VITALS: BP 90/62; PULSE 72; BMI 28.6
--- OUTSIDE RECORDS SUMMARY | 2025-07-22 11:03 | XMS_ITS | Encounter Summary ---
Author Organization [facility] Address [address] [place] [address] Care Team Providers Care Medical Insurance Claims Processor Name Role Phone Hayden Man MD Primary Care Provider [phone] Maggy Swartz MD Unavailable [phone] Encounter Details Date Type Department Care Team (Late st Contact Info) Description 12/16/2020 Scanned Document [facility] Neurosurgery [address] [place] [address] Bibi Maza PA Valid Address Needed Social [...] on filedocumented in this encounter Care Teams Medical Insurance Claims Processor Relationship Specialty Start Date End Date Hayden Man MD [address] [place] [address] [place] [address] PCP - General Internal Medicine 05/06/20 Maggy Swartz MD [address] [place] [address] Surgery, Neurosurgery 08/20/20 documented as of this encounter
--- OUTSIDE RECORDS SUMMARY | 2025-07-22 11:03 | XMS_ITS | Encounter Summary ---
Author Organization [facility] Address [address] [place] [address] Care Team Providers Care Education Faculty Member Name Role Phone Hayden Man MD Primary Care Provider [phone] Maggy Swartz MD Unavailable [phone] Reason for Visit * Reason Comments Other Encounter Details Date Type Department Care Team (Late st Contact Info) Description 04/03/2021 Telephone [facility] Urologic Surgery [address] [id number] Hardik Reese MD [address] [place] [address] Other Social History Tobacco Use Types [...] Ct abdomen with and without contrast to [facility]. documented in this encounter Plan of Treatment Not on file documented as of this encounter Visit Diagnoses Not on filedocumented in this encounter Care Teams Education Faculty Member Relationship Specialty Start Date End Date Hayden Man MD [address] [place] [address] [address] [place] [address] PCP - General Internal Medicine 05/06/20 Maggy Swartz MD [address] [place] [address] Surgery, Neurosurgery 08/20/20 documented as of this encounter
--- OUTSIDE RECORDS SUMMARY | 2025-07-22 11:03 | XMS_ITS | Clinical Summary ---
Author Organization [facility] Address [address] [place] [address] Care Team Providers Care Director Of Solutions Architecture Name Role Phone Hayden Man MD Primary Care Provider [phone] Maggy Swartz MD Unavailable [phone] Allergies No known active allergies Medications [...] this topic Medical Devices Implanted Type Area Control Panel Operator Device Identifier Shelf Expiration Date Model / Serial / Lot [id number] Spacer Spinal [id number] Cpstn Peek Ptc Lmbr Intrbd Fs Sterl - [id number] Implanted:Qty: 1 on 09/08/2020 by Maggy Swartz MD at [facility] Cage N/A: Spine Lumbar [employer] MINIMALLY INVASIVE T 10/20/2026 [id number] / / [id number] Ashok Spinal 70mm 5.5mm Cd Hzn Crv Ti Cp4 Nonst - [id number] Implanted:Qty: 2 on 09/08/2020 by Maggy Swartz MD at [facility] Nail/Ashok N/A: Spine Lumbar [employer] MINIMALLY INVASIVE T [id number] / / [id number] Screw Bone Spine Solera Cd Hzn 40mm Cocr 5.5mm Ma Nonst 5.5 - [id number] Implanted:Qty: 2 on 09/08/2020 by Maggy Swartz MD at [facility] Spine N/A: Spine Lumbar [employer] MINIMALLY INVASIVE T [id number] / / [id number] Screw Bone Spine Cd Hzn Solera 45mm Ti Cocr 5.5mm Ma Nonst - [id number] Implanted:Qty: 4 on 09/08/2020 by Maggy Swartz MD at [facility] Spine N/A: Spine Lumbar [employer] MINIMALLY INVASIVE T [id number] / / [id number] Screw Set Ti Spine Brk Off Cd Hzn Nonst 5.5 Mm Ashok - [id number] Implanted:Qty: 6 on 09/08/2020 by Maggy Swartz MD at [facility] Spine N/A: Spine Lumbar [employer] MINIMALLY INVASIVE T [id number] / / [id number] Filler Bone Void 10cc Dbx Algrf Frzdr Putty - [id number] Implanted:Qty: 1 on 09/08/2020 by Maggy Swartz MD at [facility] Void Filler N/A: Spine Lumbar [employer]OSKELETAL TRANSPLANT FOU 03/19/2022 [id number] / [id number] / [id number] Filler Bone Void 10cc Dbx Algrf Frzdr Putty - [id number] Implanted:Qty: 1 on 09/08/2020 by Maggy Swartz MD at [facility] Void Filler N/A: Spine Lumbar [employer]KELETAL TRANSPLANT FOU 12/13/2021 [id number] / [id number] / [id number] Filler Bone Void 10cc Dbx Algrf Frzdr Putty - [id number] Implanted:Qty: 1 on 09/08/2020 by Maggy Swartz MD at [facility] Void Filler N/A: Spine Lumbar MUSCULOSKELETAL TRANSPLANT FOU 03/19/2022 [id number] / [id number] / Insurance [facility] Advance Directives * Full Code [...] 8:24 AM 06/25/2020 3:59 PM Care Teams Director Of Solutions Architecture Relationship Specialty Start Date End Date Hayden Man MD [address] [place] [address] [address] [place] [address] PCP - General Internal Medicine 05/06/20 Maggy Swartz MD [address] [place] [address] Surgery, Neurosurgery 08/20/20
--- OUTSIDE RECORDS SUMMARY | 2025-07-22 11:03 | XMS_ITS | Encounter Summary ---
Author Organization [facility] Address [address] [place] [address] Care Team Providers Care Logistics Team Lead Name Role Phone Hayden Man MD Primary Care Provider [phone] Maggy Swartz MD Unavailable [phone] Encounter Details Date Type Department Care Team (Late st Contact Info) Description 02/02/[address] [facility] Neurosurgery [place] [address] [address] Maggy Swartz MD [address] [address] Social History Tobacco Use Types Packs/Day Years [...] on filedocumented in this encounter Care Teams Logistics Team Lead Relationship Specialty Start Date End Date Hayden Man MD [address] [place] [address] [place] [address] PCP - General Internal Medicine 05/06/20 Maggy Swartz MD [address] [place] [address] Surgery, Neurosurgery 08/20/20 documented as of this encounter
--- OUTSIDE RECORDS SUMMARY | 2025-07-22 11:03 | XMS_ITS | Encounter Summary ---
Author Organization [facility] Address [address] [place] [address] Care Team Providers Care Pack Press Operator Name Role Phone Hayden Man MD Primary Care Provider [phone] Maggy Swartz MD Unavailable [phone] Encounter Details Date Type Department Care Team (Late st Contact Info) Description 12/16/2020 Scanned Document [facility] Neurosurgery [address] [place] [address] Bibi Maza PA Valid Address Needed Social [...] on filedocumented in this encounter Care Teams Pack Press Operator Relationship Specialty Start Date End Date Hayden Man MD [address] [place] [address] [place] [address] PCP - General Internal Medicine 05/06/20 Maggy Swartz MD [address] [place] [address] Surgery, Neurosurgery 08/20/20 documented as of this encounter
--- OUTSIDE RECORDS SUMMARY | 2025-07-22 11:03 | XMS_ITS | Clinical Summary ---
Author Organization [facility] Address [address] [place] [address] Phone Care Team Providers Care Reaming Press Operator Name Role Phone Po, Hayden Mckeon MD Primary Care Provider [phone] Allergies No known active allergies Medications LEVOTHYROXINE SODIUM (LEVOTHYROXINE ORAL) Take 88 mcg by mouth. Active CYANOCOBALAMIN, VITAMIN B-12, (VITAMIN B-12 ORAL) Take by mouth. Active MAGNESIUM ORAL Take by mouth. Active gabapentin (NEURONTIN) 600 MG tablet Take 600 mg by mouth 4 (four) times a day as needed. Active ferrous sulfate 325 mg (65 mg [place] iron) tablet Take 325 mg by mouth [...] topic Medical Devices Not on file Insurance [employer] MEDICARE PART A & [facility] [place] [id number] MEDICARE PART A & B [place] [id number] MEDICARE PART A & [place] PART A & B [employer] [facility] Address: [address] [address] [place] [address] Care Teams Reaming Press Operator Relationship Specialty Start Date End Date Hayden Man MD [address] [place] [address] PCP - General Internal Medicine 07/18/17 Additional Source Comments The information contained in this document represents components of the legal health record. It is not the complete legal health record.[facility]
--- OUTSIDE RECORDS SUMMARY | 2025-07-22 11:03 | XMS_ITS | Encounter Summary ---
Author Organization [facility] Address [address] [place] [address] Care Team Providers Care Fast Foods Worker Name Role Phone Hayden Man MD Primary Care Provider [phone] Maggy Swartz MD Unavailable [phone] Encounter Details Date Type Department Care Team (Late st Contact Info) Description 03/24/2021 Scanned Document [facility] Neurosurgery [address] [address] Bibi Maza PA Valid Address [...] on filedocumented in this encounter Care Teams Fast Foods Worker Relationship Specialty Start Date End Date Hayden Man MD [address] [place] [address] [place] [address] PCP - General Internal Medicine 05/06/20 Maggy Swartz MD [address] [place] [address] Surgery, Neurosurgery 08/20/20 documented as of this encounter
--- OUTSIDE RECORDS SUMMARY | 2025-07-22 11:03 | XMS_ITS | Encounter Summary ---
Author Organization [facility] Address [address] [place] [address] Care Team Providers Care Actionscript Developer Name Role Phone Hayden Man MD Primary Care Provider [phone] Maggy Swartz MD Unavailable [phone] Encounter Details Date Type Department Care Team (Late st Contact Info) Description 02/02/2021 Scanned Document [facility] Neurosurgery [place] [address] [address] Maggy Swartz MD [address] [address] Social History Tobacco Use Types Packs/Day Years [...] on filedocumented in this encounter Care Teams Actionscript Developer Relationship Specialty Start Date End Date Hayden Man MD [address] [place] [address] [place] [address] PCP - General Internal Medicine 05/06/20 Maggy Swartz MD [address] [place] [address] Surgery, Neurosurgery 08/20/20 documented as of this encounter
--- OUTSIDE RECORDS SUMMARY | 2025-07-22 11:03 | XMS_ITS | Encounter Summary ---
Author Organization [facility] Address [address] [place] [address] Care Team Providers Care Hard Rock Miner Blasting Name Role Phone Hayden Man MD Primary Care Provider [phone] Maggy Swartz MD Unavailable [phone] Encounter Details Date Type Department Care Team (Late st Contact Info) Description 09/11/2021 Scanned Document [facility] Neurosurgery [place] [address] [address] Maggy Swartz MD [address] [address] Social History Tobacco Use Types Packs/Day Years [...] on filedocumented in this encounter Care Teams Hard Rock Miner Blasting Relationship Specialty Start Date End Date Hayden Man MD [address] [place] [address] [place] [address] PCP - General Internal Medicine 05/06/20 Maggy Swartz MD [address] [place] [address] Surgery, Neurosurgery 08/20/20 documented as of this encounter
--- OUTSIDE RECORDS SUMMARY | 2025-07-22 11:03 | XMS_ITS | Encounter Summary ---
Author Organization [facility] Address [address] [place] [address] Phone Care Team Providers Care Service Engineer Name Role Phone Hayden Man MD Primary Care Provider [phone] Encounter Details Date Type Department Care Team (Late st Contact Info) Description 10/13/2023 Procedure [facility] [address] [place] [address] Social History Tobacco Use Types Packs/Day Years [...] on filedocumented in this encounter Care Teams Service Engineer Relationship Specialty Start Date End Date Hayden Man MD [address] [place] [address] [place] [address] PCP - General Internal Medicine 07/18/17 documented as of this encounter Additional Source Comments The information contained in this document represents components of the legal health record. It is not the complete legal health record.[facility]
--- OUTSIDE RECORDS SUMMARY | 2025-07-22 11:03 | XMS_ITS | Encounter Summary ---
Author Organization [facility] Address [address] [place] [address] Care Team Providers Care Procurement Forester Name Role Phone Hayden Man MD Primary Care Provider [phone] Maggy Swartz MD Unavailable [phone] Encounter Details Date Type Department Care Team (Late st Contact Info) Description 12/16/2020 Scanned Document [facility] Neurosurgery [address] [place] [address] Bibi Maza PA Valid Address Needed Social [...] filedocumented in this encounter Care Teams Procurement Forester Relationship Specialty Start Date End Date Hayden Man MD [address] [place] [address] [place] [address] PCP - General Internal Medicine 05/06/20 Maggy Swartz MD [address] [place] [address] Surgery, Neurosurgery 08/20/20 documented as of this encounter
--- OUTSIDE RECORDS SUMMARY | 2025-07-22 11:03 | XMS_ITS | Encounter Summary ---
Author Organization [address] [address] Care Team Providers Care Buttonhole Marker Name Role Phone Hayden Man MD Primary Care Provider [phone] Maggy Swartz MD Unavailable [phone] Encounter Details Date Type Department Care Team (Late st Contact Info) Description 09/17/2020 Scanned Document [facility] Neurosurgery [place] 85 [facility] [address] [place] [phone] Maggy Swartz MD 85 [facility] [address] [place] [address] Social History Tobacco Use Types Packs/Day Years [...] on filedocumented in this encounter Care Teams Buttonhole Marker Relationship Specialty Start Date End Date Hayden Man MD [address] [place] [address] Dr [address] [place] [address] PCP - General Internal Medicine 05/06/20 Maggy Swartz MD [address] [place] [address] Surgery, Neurosurgery 08/20/20 documented as of this encounter
--- OUTSIDE RECORDS SUMMARY | 2025-07-22 11:03 | XMS_ITS | Encounter Summary ---
Author Organization [facility] Address [address] [place] [address] Care Team Providers Care Plastics Sheet Finishing Press Operator Name Role Phone Hayden Man MD Primary Care Provider [phone] Maggy Swartz MD Unavailable [phone] Encounter Details Date Type Department Care Team (Late st Contact Info) Description 07/22/2021 Scanned Document [facility] Neurosurgery [place] [address] [address] Maggy Swartz MD [address] [address] Social History Tobacco Use Types Packs/Day Years [...] on filedocumented in this encounter Care Teams Plastics Sheet Finishing Press Operator Relationship Specialty Start Date End Date Hayden Man MD [address] [place] [address] [place] [address] PCP - General Internal Medicine 05/06/20 Maggy Swartz MD [address] [place] [address] Surgery, Neurosurgery 08/20/20 documented as of this encounter
--- OUTSIDE RECORDS SUMMARY | 2025-07-22 11:03 | XMS_ITS | Encounter Summary ---
Author Organization [facility] Address [address] [place] [address] Care Team Providers Care Electrical Contractor Name Role Phone Hayden Man MD Primary Care Provider [phone] Maggy Swartz MD Unavailable [phone] Reason for Visit * Reason Comments Medication Refill Encounter Details Date Type Department Care Team (Late st Contact Info) Description 09/27/2020 Refill [facility] Neurosurgery [address] [place] [phone] Bibi Maza PA Valid Address Needed Lumbar [...] myelopathy documented in this encounter Care Teams Electrical Contractor Relationship Specialty Start Date End Date Hayden Man MD [address] [place] [address] 101 [place] [address] PCP - General Internal Medicine 05/06/20 Maggy Swartz MD [address] [place] [address] Surgery, Neurosurgery 08/20/20 documented as of this encounter
--- OUTSIDE RECORDS SUMMARY | 2025-07-22 11:03 | XMS_ITS | Encounter Summary ---
Author Organization [address] [address] Care Team Providers Care Machine Setter Supervisor Name Role Phone Hayden Man MD Primary Care Provider [phone] Maggy Swartz MD Unavailable [phone] Encounter Details Date Type Department Care Team (Late st Contact Info) Description 08/22/2020 Scanned Document [facility] Neurosurgery [place] 85 [facility] [address] [place] [phone] Maggy Swartz MD 85 [facility] [place] [address] [place] [address] Social History Tobacco Use Types Packs/Day Years [...] filedocumented in this encounter Care Teams Machine Setter Supervisor Relationship Specialty Start Date End Date Hayden Man MD [address] [place] [address] Dr Vo [address] [place] [address] PCP - General Internal Medicine 05/06/20 Maggy Swartz MD [address] [place] [address] Surgery, Neurosurgery 08/20/20 documented as of this encounter
== END 2025-07-22 10:10 | disposition home or self-care (01) ==
PROVIDERS: PCP Internal Medicine; Visit Provider Nurse Practitioner Family
DX: R55 Syncope and collapse (principal); I95.1 Orthostatic hypotension
CPT/HCPCS: 93010; 99204; G2211

== ENCOUNTER → 2025-07-22 09:22 | Outpatient (BNVA) | payer MEDICARE, MEDICAID, SELFPAY | PROVIDERS: PCP Internal Medicine; Visit Provider Nurse Practitioner Family | DX: R55 Syncope and collapse (principal); I95.1 Orthostatic hypotension | CPT/HCPCS: 93005; 99202 ==

== ENCOUNTER → 2025-08-05 12:51 | Outpatient (REF) | payer MEDICARE, SELFPAY ==
--- NOTE | 2025-08-05 12:56 | HM_ITS ---
Conclusion: 1. Patient was monitored for total period of 5 days 2. Baseline was normal sinus rhythm with average heart of 84 beats per minute 3. No significant pauses noted 4. Rare PACs noted with 14 short runs of SVE, longest lasting 9 beats consistent with SVT at 187 beats per minute 5. No patient reported events MTDD
--- OUTSIDE RECORDS SUMMARY | 2025-08-05 15:14 | XMS_ITS | Encounter Summary ---
Author Organization [facility] Address [address] [place] [address] Care Team Providers Care Agriculture Worker Name Role Phone Hayden Man MD Primary Care Provider [phone] Maggy Swartz MD Unavailable [phone] Encounter Details Date Type Department Care Team (Late st Contact Info) Description 02/02/2021 Scanned Document [facility] Neurosurgery [place] [address] [address] Maggy Swartz MD [address] [address] Social History Tobacco Use Types Packs/Day Years [...] on filedocumented in this encounter Care Teams Agriculture Worker Relationship Specialty Start Date End Date Hayden Man MD [address] [place] [address] Dr Vo Vida AkersYOHANNES [place] [address] PCP - General Internal Medicine 05/06/20 Maggy Swartz MD [address] [place] [address] Surgery, Neurosurgery 08/20/20 documented as of this encounter
--- OUTSIDE RECORDS SUMMARY | 2025-08-05 15:14 | XMS_ITS | Encounter Summary ---
Author Organization [facility] Address [address] [place] [address] Care Team Providers Care Public Relations Director Name Role Phone Hayden Man MD Primary Care Provider [phone] Maggy Swartz MD Unavailable [phone] Encounter Details Date Type Department Care Team (Late st Contact Info) Description 09/11/2021 Scanned Document [facility] Neurosurgery [place] [address] [address] Maggy Swartz MD [address] [address] Social History Tobacco Use Types Packs/Day Years [...] filedocumented in this encounter Care Teams Public Relations Director Relationship Specialty Start Date End Date Hayden Man MD [address] [place] [address] Dr Vo Vida AkersYOHANNES rogers [address] PCP - General Internal Medicine 05/06/20 Maggy Swartz MD [address] [place] [address] Surgery, Neurosurgery 08/20/20 documented as of this encounter
--- OUTSIDE RECORDS SUMMARY | 2025-08-05 15:14 | XMS_ITS | Encounter Summary ---
Author Organization [facility] Address [address] [place] [address] Care Team Providers Care Adjunct Faculty For Medical Terminology Name Role Phone Hayden Man MD Primary Care Provider [phone] Maggy Swartz MD Unavailable [phone] Reason for Visit * Reason Comments Other Encounter Details Date Type Department Care Team (Late st Contact Info) Description 04/03/2021 Telephone [facility] Urologic Surgery [address] [phone] Hardik Reese MD [address] [place] [address] Other Social History Tobacco Use Types [...] Ct abdomen with and without contrast to [facility]. documented in this encounter Plan of Treatment Not on file documented as of this encounter Visit Diagnoses Not on filedocumented in this encounter Care Teams Adjunct Faculty For Medical Terminology Relationship Specialty Start Date End Date Hayden Man MD [address] [place] [address] 101 [place] [address] PCP - General Internal Medicine 05/06/20 Maggy Swartz MD [address] [place] [address] Surgery, Neurosurgery 08/20/20 documented as of this encounter
--- OUTSIDE RECORDS SUMMARY | 2025-08-05 15:14 | XMS_ITS | Encounter Summary ---
Author Organization [facility] [place] Address [address] [place] [address] Care Team Providers Care Mba Intern Name Role Phone Hayden Man MD Primary Care Provider [phone] Maggy Swartz MD Unavailable [phone] Encounter Details Date Type Department Care Team (Late st Contact Info) Description 03/24/2021 Scanned Document [facility] Neurosurgery [address] [address] Bibi Maza PA Valid Address [...] on filedocumented in this encounter Care Teams Mba Intern Relationship Specialty Start Date End Date Hayden Man MD [address] [place] [address] [place] [address] PCP - General Internal Medicine 05/06/20 Maggy Swartz MD [address] [place] [address] Surgery, Neurosurgery 08/20/20 documented as of this encounter
--- OUTSIDE RECORDS SUMMARY | 2025-08-05 15:14 | XMS_ITS | Encounter Summary ---
Author Organization [address] [address] Care Team Providers Care Turner Machine Name Role Phone Hayden Man MD Primary Care Provider [phone] Maggy Swartz MD Unavailable [phone] Encounter Details Date Type Department Care Team (Late st Contact Info) Description 08/22/2020 Scanned Document [facility] Neurosurgery [place] 85 [facility] [address] [place] [phone] Maggy Swartz MD 85 [facility] [place] [address] [place] [address] Social History Tobacco Use Types Packs/Day Years [...] on filedocumented in this encounter Care Teams Turner Machine Relationship Specialty Start Date End Date Hayden Man MD [address] [place] [address] Dr Vo [address] [place] [address] PCP - General Internal Medicine 05/06/20 Maggy Swartz MD [address] [place] [address] Surgery, Neurosurgery 08/20/20 documented as of this encounter
--- OUTSIDE RECORDS SUMMARY | 2025-08-05 15:14 | XMS_ITS | Encounter Summary ---
Author Organization [facility] Address [address] [place] [address] Care Team Providers Care Teacher Aide Clerical Name Role Phone Hayden Man MD Primary Care Provider [phone] Maggy Swartz MD Unavailable [phone] Encounter Details Date Type Department Care Team (Late st Contact Info) Description 07/22/2021 Scanned Document [facility] Neurosurgery [place] [address] [address] Maggy Swartz MD [address] [address] Social History Tobacco Use Types Packs/Day Years [...] on filedocumented in this encounter Care Teams Teacher Aide Clerical Relationship Specialty Start Date End Date Hayden Man MD [address] [place] [address] Dr Vo Vida AkersYOHANNES rogers [address] PCP - General Internal Medicine 05/06/20 Maggy Swartz MD [address] [place] [address] Surgery, Neurosurgery 08/20/20 documented as of this encounter
--- OUTSIDE RECORDS SUMMARY | 2025-08-05 15:14 | XMS_ITS | Encounter Summary ---
Author Organization [facility] Address [address] [place] [address] Phone Care Team Providers Care Computer Security Manager Name Role Phone Hayden Man MD Primary Care Provider Encounter Details Date Type Department Care Team (Late st Contact Info) Description 10/13/2023 Procedure Pass [facility] [address] [place] [address] Social History Tobacco Use Types Packs/Day Years [...] on filedocumented in this encounter Care Teams Computer Security Manager Relationship Specialty Start Date End Date Hayden Man MD [address] [place] [address] [place] [address] PCP - General Internal Medicine 07/18/17 documented as of this encounter Additional Source Comments The information contained in this document represents components of the legal health record. It is not the complete legal health record.[facility]
--- OUTSIDE RECORDS SUMMARY | 2025-08-05 15:14 | XMS_ITS | Encounter Summary ---
Author Organization [facility] Address [address] [place] [address] Care Team Providers Care Air Conditioning Technician Name Role Phone aHyden Man MD Primary Care Provider [phone] Maggy Swartz MD Unavailable [phone] Encounter Details Date Type Department Care Team (Late st Contact Info) Description 12/16/2020 Scanned Document [facility] Neurosurgery [address] [place] [address] Bibi Maza PA Valid Address Needed Social [...] on filedocumented in this encounter Care Teams Air Conditioning Technician Relationship Specialty Start Date End Date Hayden Man MD [address] [place] [address] [place] [address] PCP - General Internal Medicine 05/06/20 Maggy Swartz MD [address] [place] [address] Surgery, Neurosurgery 08/20/20 documented as of this encounter
--- OUTSIDE RECORDS SUMMARY | 2025-08-05 15:14 | XMS_ITS | Clinical Summary ---
Author Organization [facility] Address [address] [place] [address] Care Team Providers Care Sealing And Canceling Machine Operator Name Role Phone Hayden Man MD Primary Care Provider [phone] Maggy Swartz MD Unavailable [phone] Allergies No known active allergies Medications [...] this topic Medical Devices Implanted Type Area Welder Production Line Gas Device Identifier Shelf Expiration Date Model / Serial / Lot [id number] Spacer Spinal [id number] Cpstn Peek Ptc Lmbr Intrbd Fs Sterl - [id number] Implanted:Qty: 1 on 09/08/2020 by Maggy Swartz MD at [facility] Cage N/A: Spine Lumbar [employer] 10/20/2026 [id number] / / [id number] Ashok Spinal 70mm 5.5mm Cd Hzn Crv Ti Cp4 Nonst - [id number] Implanted:Qty: 2 on 09/08/2020 by Maggy Swartz MD at [facility] Nail/Ashok N/A: Spine Lumbar [employer] [id number] / / [id number] Screw Bone Spine Solera Cd Hzn 40mm Cocr 5.5mm Ma Nonst 5.5 - [id number] Implanted:Qty: 2 on 09/08/2020 by Maggy Swartz MD at [facility] Spine N/A: Spine Lumbar [employer] [id number] / / [id number] Screw Bone Spine Cd Hzn Solera 45mm Ti Cocr 5.5mm Ma Nonst - [id number] Implanted:Qty: 4 on 09/08/2020 by Maggy Swartz MD at [facility] Spine N/A: Spine Lumbar [employer] [id number] / / [id number] Screw Set Ti Spine Brk Off Cd Hzn Nonst 5.5 Mm Ashok - [id number] Implanted:Qty: 6 on 09/08/2020 by Maggy Swartz MD at [facility] Spine N/A: Spine Lumbar [employer] [id number] / / [id number] Filler Bone Void 10cc Dbx Algrf Frzdr Putty - [id number] Implanted:Qty: 1 on 09/08/2020 by Maggy Swartz MD at [facility] Void Filler N/A: Spine Lumbar [employer] 03/19/2022 [id number] / [id number] / [id number] Filler Bone Void 10cc Dbx Algrf Frzdr Putty - [id number] Implanted:Qty: 1 on 09/08/2020 by Maggy Swartz MD at [facility] Void Filler N/A: Spine Lumbar [employer] 12/13/2021 [id number] / [id number] Filler Bone Void 10cc Dbx Algrf Frzdr Putty - [id number] Implanted:Qty: 1 on 09/08/2020 by Maggy Swartz MD at [facility] Void Filler N/A: Spine Lumbar [employer] 03/19/2022 [id number] / [id number] / Insurance [facility] Advance Directives * Full Code (Latest Code Status on File) Date Activated Date Inactivated Comments 09/08/2020 8:09 PM * Full Code Date Activated Date Inactivated Comments 09/08/2020 9:46 AM 09/08/2020 8:09 PM * Full Code Date Activated Date Inactivated Comments 06/25/2020 3:59 PM 09/08/2020 9:10 AM * Full Code Date Activated Date Inactivated Comments 06/25/2020 8:24 AM 06/25/2020 3:59 PM Care Teams Sealing And Canceling Machine Operator Relationship Specialty Start Date End Date Hayden Man MD [address] [place] [address] Dr Vo [address] [place] [address] PCP - General Internal Medicine 05/06/20 Maggy Swartz MD [address] [place] [address] Surgery, Neurosurgery 08/20/20
--- OUTSIDE RECORDS SUMMARY | 2025-08-05 15:14 | XMS_ITS | Clinical Summary ---
Author Organization [facility] Address [address] [place] [address] Phone Care Team Providers Care Locomotive Firer Name Role Phone Po, Hayden Mckeon MD Primary Care Provider [phone] Allergies No known active allergies Medications LEVOTHYROXINE SODIUM (LEVOTHYROXINE ORAL) Take 88 mcg by mouth. Active CYANOCOBALAMIN, VITAMIN B-12, (VITAMIN B-12 ORAL) Take by mouth. Active MAGNESIUM ORAL Take by mouth. Active gabapentin (NEURONTIN) 600 MG tablet Take 600 mg by mouth 4 (four) times a day as needed. Active ferrous sulfate 325 mg (65 mg ruby iron) tablet Take 325 mg by mouth [...] topic Medical Devices Not on file Insurance [employer] MEDICARE PART A & B [facility] [place] [address] MEDICARE PART A & B [place] [facility] [place] [address] MEDICARE PART A & B [place] & B [facility] [facility] Care Teams Locomotive Firer Relationship Specialty Start Date End Date Hayden Man MD [address] [place] [address] PCP - General Internal Medicine 07/18/17 Additional Source Comments The information contained in this document represents components of the legal health record. It is not the complete legal health record.[facility]
--- OUTSIDE RECORDS SUMMARY | 2025-08-05 15:14 | XMS_ITS | Encounter Summary ---
Author Organization [facility] Address [address] [place] [address] Care Team Providers Care Corporate Travel Agent Name Role Phone Hayden Man MD Primary Care Provider [phone] Maggy Swartz MD Unavailable Reason for Visit * Reason Comments Medication Refill Encounter Details Date Type Department Care Team (Late st Contact Info) Description 09/27/2020 Refill [facility] Neurosurgery [address] [place] [address] Bibi Maza PA Valid Address Needed Lumbar [...] myelopathy documented in this encounter Care Teams Corporate Travel Agent Relationship Specialty Start Date End Date Hayden Man MD [address] [place] [address] 101 [place] [address] PCP - General Internal Medicine 05/06/20 Maggy Swartz MD [address] [place] [address] Surgery, Neurosurgery 08/20/20 documented as of this encounter
--- OUTSIDE RECORDS SUMMARY | 2025-08-05 15:14 | XMS_ITS | Clinical Summary ---
Author Organization [facility] Address [address] [place] [address] Care Team Providers Care Information Technology Associate Name Role Phone Unavailable Primary Care Provider Unavailabl e Social History Tobacco Use Types Packs/Day Years Used Date Smoking Tobacco: Never Assessed Comments Unknown Sex and Gender Information Value Date Recorded Sex Assigned at Not on file Legal Sex Female 1:51 PM EST Gender Identity Not on file Sexual Orientation Not on file Plan of Treatment Upcoming Encounters Date Type Department Care Team (Late st Contact Info) Description 11/19/2025 1:00 PM EST Appointment [facility] Xray [address] [place] [address] Health Maintenance Due Date Last Done Comments Breast Cancer Screening 1962 Colorectal Cancer Screening: Colonoscopy 1962 DTaP,Tdap,and Td Vaccines (1 - Tdap) 1981 Cervical Cancer Screening: P ap Smear 1983 Pneumococcal Vaccine: 50+ Ye ars (1 of 1 - PCV) 2012 Zoster Vaccines (1 of 2) 2012 Depression Screening 10/31/2024 COVID-19 Vaccine ( - 2023-2 5 season) 2025 Influenza Vaccine (#1) 2025 HIV Screening 07/24/2025 Hepatitis C Screening 07/24/2025 Medicare Annual Wellness Visit 07/24/2025 Social Influencers of Health Screening 07/24/2025 RSV Immunization Adult Patie nts (1 - 1-dose 75+ series) 2037 HIB Vaccines Aged Out No longer eligi ble based on patient's age to complete this topic HPV Vaccines Aged Out No longer eligi ble based on patient's age to complete this topic Hepatitis A Vaccines Aged Out No long er eligible based on patient's age to complete this topic Hepatitis B Vaccines Aged Out No long er eligible based on patient's age to complete this topic IPV Vaccines Aged Out No longer eligi ble based on patient's age to complete this topic MMR Vaccines Aged Out No longer eligi ble based on patient's age to complete this topic Meningococcal ACWY Vaccine Aged Out N o longer eligible based on patient's age to complete this topic Meningococcal B Vaccine Aged Out No l onger eligible based on patient's age to complete this topic RSV Immunization Patients Un alyssa 20 months Aged Out No longer eligible b ased on patient's age to complete this topic Varicella Vaccines Aged Out No longer eligible based on patient's age to complete this topic Insurance MEDICARE
--- OUTSIDE RECORDS SUMMARY | 2025-08-05 15:14 | XMS_ITS | Encounter Summary ---
Author Organization [facility] Address [address] [place] [address] Care Team Providers Care Library Circulation Assistant Name Role Phone Hayden Man MD Primary Care Provider [phone] Maggy Swartz MD Unavailable [phone] Encounter Details Date Type Department Care Team (Late st Contact Info) Description 12/16/2020 Scanned Document [facility] [place] Neurosurgery [address] [place] [address] Bibi Maza PA Valid Address Needed Social [...] on filedocumented in this encounter Care Teams Library Circulation Assistant Relationship Specialty Start Date End Date Hayden Man MD [address] [place] [address] [place] [address] PCP - General Internal Medicine 05/06/20 Maggy Swartz MD [address] [place] [address] Surgery, Neurosurgery 08/20/20 documented as of this encounter
--- OUTSIDE RECORDS SUMMARY | 2025-08-05 15:14 | XMS_ITS | Encounter Summary ---
Author Organization [address] [address] Care Team Providers Care Pipe Organ Builder Name Role Phone Hayden Man MD Primary Care Provider [phone] Maggy Swartz MD Unavailable [phone] Encounter Details Date Type Department Care Team (Late st Contact Info) Description 09/17/2020 Scanned Document [facility] Neurosurgery [place] 85 [facility] [address] [place] [phone] Maggy Swartz MD [address] [facility] [place] [address] [place] [address] Social History Tobacco Use Types Packs/Day Years [...] on filedocumented in this encounter Care Teams Pipe Organ Builder Relationship Specialty Start Date End Date Hayden Man MD [address] [place] [address] Dr [address] [place] [address] PCP - General Internal Medicine 05/06/20 Maggy Swartz MD [address] [place] [address] Surgery, Neurosurgery 08/20/20 documented as of this encounter
--- OUTSIDE RECORDS SUMMARY | 2025-08-05 15:14 | XMS_ITS | Encounter Summary ---
Author Organization [facility] Address [address] [place] [address] Care Team Providers Care Spare Hand Carding Name Role Phone Hayden Man MD Primary Care Provider [phone] Maggy Swartz MD Unavailable [phone] Encounter Details Date Type Department Care Team (Late st Contact Info) Description 12/16/2020 Scanned Document [facility] Neurosurgery [address] [place] [address] Bibi Maza PA Valid Address Needed Social [...] on filedocumented in this encounter Care Teams Spare Hand Carding Relationship Specialty Start Date End Date Hayden Man MD [address] [place] [address] [place] [address] PCP - General Internal Medicine 05/06/20 Maggy Swartz MD [address] [place] [address] Surgery, Neurosurgery 08/20/20 documented as of this encounter
--- OUTSIDE RECORDS SUMMARY | 2025-08-05 15:14 | XMS_ITS | Encounter Summary ---
Author Organization [facility] Address [address] [place] [address] Care Team Providers Care Plating Tank Operator Apprentice Name Role Phone Hayden Man MD Primary Care Provider [phone] Maggy Swartz MD Unavailable [phone] Encounter Details Date Type Department Care Team (Late st Contact Info) Description 02/02/2021 Scanned Document [facility] Neurosurgery [place] [address] [address] Maggy Swartz MD [address] [address] Social History Tobacco Use Types Packs/Day Years [...] on filedocumented in this encounter Care Teams Plating Tank Operator Apprentice Relationship Specialty Start Date End Date Hayden Man MD [address] [place] [address] Dr Vo Vida AkersYOHANNES rogers [address] PCP - General Internal Medicine 05/06/20 Maggy Swartz MD [address] [place] [address] Surgery, Neurosurgery 08/20/20 documented as of this encounter
== END ==
LOC: HO.CARD 12:51
PROVIDERS: PCP Internal Medicine; Visit Provider Nurse Practitioner Family
DX: R55 Syncope and collapse (principal)
CPT/HCPCS: 93242

== ENCOUNTER → 2025-08-05 12:56 | Outpatient (BNV) | payer MEDICARE, MEDICAID, SELFPAY | PROVIDERS: PCP Internal Medicine; Visit Provider Internal Medicine Cardiovascular Disease | DX: I49.1 Atrial premature depolarization (principal) | CPT/HCPCS: 93244 ==

== ENCOUNTER 2025-08-16 11:10 | Outpatient (REF) | payer MEDICARE, SELFPAY ==
--- NOTE | ~2025-08-16 | MM_ITS ---
EXAMINATION: DXA BONE DENSITY EXTREMITY HISTORY: M81.0 - Age-related osteoporosis without current pathological fracture TECHNIQUE: OPS [place] Dual energy absorptiometry (DEXA) of the total left hip, femoral neck, and distal radius was performed. The lumbar spine was not evaluated due to a history of prior fusion. COMPARISON: There are no prior studies for comparison. FINDINGS: The bone mineral density of the left total hip is 0.909 g/cm2, corresponding to a T-score of -0.8, and a Z-score of 0.0. This is indicative of normal bone mineral density. The bone mineral density of the left femoral neck is 0.933 g/cm2, corresponding to a T-score of -0.8, and a Z-score of 0.3. This is indicative of normal bone mineral density. The bone mineral density of the distal radius is 0.847 g/cm2, corresponding to a T-score of -0.3, and a Z-score of 0.8. This is indicative of normal bone mineral density. FRACTURE RISK: The FRAX index suggests a risk of major osteoporotic fracture of 22.8%, and of hip fracture 1.1%. MM/XR DEXA appendicular skeleton IMPRESSION: Based on bone mineral density, and according to World Health Organization (WHO) criteria, the diagnosis is consistent with normal bone mineral density. Statistically, 68% of repeat scans fall within 1 SD (+/- 0.010 g/cm2 for AP spine L1-L4) and 1 SD (+/- 0.012 g/cm2 for femur total) FRAX is a trademark of the [employer]'s [place] [facility] Metabolic Bone Disease, a World Health Organization (WHO) Collaborating Center. Electronically signed by: Tai Russell MD 08/16/2025 11:51 AM EDT
--- OUTSIDE RECORDS SUMMARY | 2025-08-16 13:56 | XMS_ITS | Encounter Summary ---
Author Organization [facility]ly [facility] Address [address] [place] [address] Care Team Providers Care Head Housekeeper Name Role Phone Hayden Man MD Primary Care Provider [phone] Maggy Swartz MD Unavailable [phone] Encounter Details Date Type Department Care Team (Late st Contact Info) Description 07/22/2021 Scanned Document [facility] Neurosurgery [place] [address] [address] Maggy Swartz MD [address] [address] Social History Tobacco Use Types Packs/Day Years [...] on filedocumented in this encounter Care Teams Head Housekeeper Relationship Specialty Start Date End Date Hayden Man MD [address] [place] [address] Dr Vo Vida AkersYOHANNES rogers [address] PCP - General Internal Medicine 05/06/20 Maggy Swartz MD [address] [place] [address] Surgery, Neurosurgery 08/20/20 documented as of this encounter
--- OUTSIDE RECORDS SUMMARY | 2025-08-16 13:56 | XMS_ITS | Encounter Summary ---
Author Organization [facility] Address [address] [place] [address] Care Team Providers Care Cyber Defense Forensics Analyst Name Role Phone Hayden Man MD Primary Care Provider [phone] Maggy Swartz MD Unavailable [phone] Encounter Details Date Type Department Care Team (Late st Contact Info) Description 12/16/2020 Scanned Document [facility] Neurosurgery [address] [place] [address] Bibi Maza PA Valid Address Needed Social [...] on filedocumented in this encounter Care Teams Cyber Defense Forensics Analyst Relationship Specialty Start Date End Date Hayden Man MD [address] [place] [address] [place] [address] PCP - General Internal Medicine 05/06/20 Maggy Swartz MD [address] [place] [address] Surgery, Neurosurgery 08/20/20 documented as of this encounter
--- OUTSIDE RECORDS SUMMARY | 2025-08-16 13:56 | XMS_ITS | Encounter Summary ---
Author Organization [facility] Address [address] [place] [address] Care Team Providers Care Lay Out Machine Operator Name Role Phone Hayden Man MD Primary Care Provider [phone] Maggy Swartz MD Unavailable [phone] Reason for Visit * Reason Comments Other Encounter Details Date Type Department Care Team (Late st Contact Info) Description 04/03/2021 Telephone [facility] Urologic Surgery [address] [phone] Hardik Reese MD [address] [place] [address] Other Social History Tobacco Use Types [...] Ct abdomen with and without contrast to [facility]. documented in this encounter Plan of Treatment Not on file documented as of this encounter Visit Diagnoses Not on filedocumented in this encounter Care Teams Lay Out Machine Operator Relationship Specialty Start Date End Date Hayden Man MD [address] [place] [address] [address] [place] [address] PCP - General Internal Medicine 05/06/20 Maggy Swartz MD [address] [place] [address] Surgery, Neurosurgery 08/20/20 documented as of this encounter
--- OUTSIDE RECORDS SUMMARY | 2025-08-16 13:56 | XMS_ITS | Encounter Summary ---
Author Organization [facility] Address [address] [place] [address] Care Team Providers Care Manager Interventional Name Role Phone Hayden Man MD Primary Care Provider [phone] Maggy Swartz MD Unavailable [phone] Reason for Visit * Reason Comments Medication Refill Encounter Details Date Type Department Care Team (Late st Contact Info) Description 09/27/2020 Refill [facility] Neurosurgery [address] [place] [address] Bibi Maza PA Valid Address Needed Lumbar [...] documented in this encounter Care Teams Manager Interventional Relationship Specialty Start Date End Date Hayden Man MD [address] [place] [address] [address] [place] [address] PCP - General Internal Medicine 05/06/20 Maggy Swartz MD [address] [place] [address] Surgery, Neurosurgery 08/20/20 documented as of this encounter
--- OUTSIDE RECORDS SUMMARY | 2025-08-16 13:56 | XMS_ITS | Encounter Summary ---
Author Organization [address] [address] Care Team Providers Care Defensive Driving Instructor Name Role Phone Hayden Man MD Primary Care Provider [phone] Maggy Swartz MD Unavailable [phone] Encounter Details Date Type Department Care Team (Late st Contact Info) Description 08/22/2020 Scanned Document [facility] Neurosurgery [place] 85 [facility] [address] [place] [address] Maggy Swartz MD 85 [facility] [place] [address] [place] [address] Social History Tobacco Use Types Packs/Day Years [...] on filedocumented in this encounter Care Teams Defensive Driving Instructor Relationship Specialty Start Date End Date Hayden Man MD [address] [place] [address] Dr Vo [address] [place] [address] PCP - General Internal Medicine 05/06/20 Maggy Swartz MD [address] [place] [address] Surgery, Neurosurgery 08/20/20 documented as of this encounter
--- OUTSIDE RECORDS SUMMARY | 2025-08-16 13:56 | XMS_ITS | Encounter Summary ---
Author Organization [facility] Address [address] [place] [address] Care Team Providers Care Cool Roofing Installer Name Role Phone Hayden Man MD Primary Care Provider [phone] Maggy Swartz MD Unavailable [phone] Encounter Details Date Type Department Care Team (Late st Contact Info) Description 09/11/2021 Scanned Document [facility] Neurosurgery [place] [address] [address] Maggy Swartz MD [address] [address] Social History Tobacco Use Types Packs/Day Years [...] on filedocumented in this encounter Care Teams Cool Roofing Installer Relationship Specialty Start Date End Date Hayden Man MD [address] [place] [address] Dr Vo Vida AkersYOHANNES rogers [address] PCP - General Internal Medicine 05/06/20 Maggy Swartz MD [address] [place] [address] Surgery, Neurosurgery 08/20/20 documented as of this encounter
--- OUTSIDE RECORDS SUMMARY | 2025-08-16 13:56 | XMS_ITS | Clinical Summary ---
Author Organization [facility] it Address [address] [place] [address] Care Team Providers Care Manager Long Term Care Name Role Phone Unavailable Primary Care Provider [...] Info) Description 11/19/2025 1:00 PM EST Appointment [facility] Xray [address] [place] [address] Health Maintenance Due Date Last [...]
--- OUTSIDE RECORDS SUMMARY | 2025-08-16 13:56 | XMS_ITS | Clinical Summary ---
Author Organization [facility] Address [address] [place] [address] Care Team Providers Care Bisque Kiln Drawer Name Role Phone Hayden Man MD Primary Care Provider [phone] Maggy Swartz MD Unavailable [phone] Allergies No known active allergies Medications [...] - 2023-2 5 season) 2025 RSV Vaccine 50 years and old er and Patients (1 - 1-dose 75+ series) 2037 Hepatitis B Vaccines Aged Out No long er eligible based on patient's age to complete this topic Medical Devices Implanted Type Area Inventory Control Specialist Device Identifier Shelf Expiration Date Model / Serial / Lot [id number] Spacer Spinal [id number] Cpstn Peek Ptc Lmbr Intrbd Fs Sterl - [id number] Implanted:Qty: 1 on 09/08/2020 by Maggy Swartz MD at [facility] Cage N/A: Spine Lumbar [employer] MINIMALLY INVASIVE T 10/20/2026 [id number] / / [id number] Ashok Spinal 70mm 5.5mm Cd Hzn Crv Ti Cp4 Nonst - [id number] Implanted:Qty: 2 on 09/08/2020 by Maggy Swartz MD at [facility] Nail/Ashok N/A: Spine Lumbar [employer] MINIMALLY INVASIVE T [id number] / / [id number] Screw Bone Spine Solera Cd Hzn 40mm Cocr 5.5mm Ma Nonst 5.5 - [id number] Implanted:Qty: 2 on 09/08/2020 by Maggy Swartz MD at [facility] Spine N/A: Spine Lumbar [employer] MINIMALLY INVASIVE T [id number] / / [id number] Screw Bone Spine Cd Hzn Solera 45mm Ti Cocr 5.5mm Ma Nonst - [id number] Implanted:Qty: 4 on 09/08/2020 by Maggy Sawrtz MD at [facility] Spine N/A: Spine Lumbar [employer] MINIMALLY INVASIVE T [id number] / / [id number] Screw Set Ti Spine Brk Off Cd Hzn Nonst 5.5 Mm Ashok - [id number] Implanted:Qty: 6 on 09/08/2020 by Maggy Swartz MD at [facility] Spine N/A: Spine Lumbar [employer] MINIMALLY INVASIVE T [id number] / / [id number] Filler Bone Void 10cc Dbx Algrf Frzdr Putty - [id number] Implanted:Qty: 1 on 09/08/2020 by Maggy Swartz MD at [facility] Void Filler N/A: Spine Lumbar MUSCULOSKELETAL TRANSPLANT FOU 03/19/2022 [id number] / [id number] / [id number] Filler Bone Void 10cc Dbx Algrf Frzdr Putty - [id number] Implanted:Qty: 1 on 09/08/2020 by Maggy Swartz MD at [facility] Void Filler N/A: Spine Lumbar [employer]CULOSKELETAL TRANSPLANT FOU 12/13/2021 [id number] / [id number] / [id number] Filler Bone Void 10cc Dbx Algrf Frzdr Putty - [id number] Implanted:Qty: 1 on 09/08/2020 by Maggy Swartz MD at [facility] Void Filler N/A: Spine Lumbar MUSCULOSKELETAL TRANSPLANT FOU 03/19/2022 [id number] / [id number] / Insurance [facility] Advance Directives * Full Code [...] 8:24 AM 06/25/2020 3:59 PM Care Teams Bisque Kiln Drawer Relationship Specialty Start Date End Date Hayden Man MD [address] [place] [address] [address] [place] [address] PCP - General Internal Medicine 05/06/20 Maggy Swartz MD [address] [place] [address] Surgery, Neurosurgery 08/20/20
--- OUTSIDE RECORDS SUMMARY | 2025-08-16 13:56 | XMS_ITS | Encounter Summary ---
Author Organization [facility] Address [address] [place] [address] Care Team Providers Care Granite Fabricator Name Role Phone Hayden Man MD Primary Care Provider [phone] Maggy Swartz MD Unavailable [phone] Encounter Details Date Type Department Care Team (Late st Contact Info) Description 12/16/2020 Scanned Document [facility] Neurosurgery [address] [place] [address] Bibi Maza PA Valid Address Needed Social [...] on filedocumented in this encounter Care Teams Granite Fabricator Relationship Specialty Start Date End Date Hayden Man MD [address] [place] [address] [place] [address] PCP - General Internal Medicine 05/06/20 Maggy Swartz MD [address] [place] [address] Surgery, Neurosurgery 08/20/20 documented as of this encounter
--- OUTSIDE RECORDS SUMMARY | 2025-08-16 13:56 | XMS_ITS | Encounter Summary ---
Author Organization [facility] Address [address] [place] [address] Phone Care Team Providers Care Wiring Technician Name Role Phone Hayden Man MD Primary Care Provider [phone] Encounter Details Date Type Department Care Team (Late st Contact Info) Description 10/13/2023 Procedure [facility] [address] [place] [address] Social History Tobacco Use Types Packs/Day Years [...] on filedocumented in this encounter Care Teams Wiring Technician Relationship Specialty Start Date End Date Hayden Man MD [address] [place] [address] [place] [address] PCP - General Internal Medicine 07/18/17 documented as of this encounter Additional Source Comments The information contained in this document represents components of the legal health record. It is not the complete legal health record.[facility]
--- OUTSIDE RECORDS SUMMARY | 2025-08-16 13:56 | XMS_ITS | Encounter Summary ---
Author Organization [facility] Address [address] [place] [address] Care Team Providers Care Baton Teacher Name Role Phone Hayden Man MD Primary Care Provider [phone] Maggy Swartz MD Unavailable [phone] Encounter Details Date Type Department Care Team (Late st Contact Info) Description 03/24/2021 Scanned Document [address] [address] Bibi Maza PA Valid Address [...] on filedocumented in this encounter Care Teams Baton Teacher Relationship Specialty Start Date End Date Hayden Man MD [address] [place] [address] [place] [address] PCP - General Internal Medicine 05/06/20 Maggy Swartz MD [address] [place] [address] Surgery, Neurosurgery 08/20/20 documented as of this encounter
--- OUTSIDE RECORDS SUMMARY | 2025-08-16 13:56 | XMS_ITS | Encounter Summary ---
Author Organization [address] [address] Care Team Providers Care Heat Treat Supervisor Name Role Phone Hayden Man MD Primary Care Provider [phone] Maggy Swartz MD Unavailable [phone] Encounter Details Date Type Department Care Team (Late st Contact Info) Description 09/17/2020 Scanned Document [facility] Neurosurgery [place] 85 [facility] [address] [place] [phone] Maggy Swartz MD 85 [facility] [place] [address] [place] [address] Social History Tobacco Use Types Packs/Day Years [...] on filedocumented in this encounter Care Teams Heat Treat Supervisor Relationship Specialty Start Date End Date Hayden Man MD [address] [place] [address] Dr Vo [address] [place] [address] PCP - General Internal Medicine 05/06/20 Maggy Swartz MD [address] [place] [address] Surgery, Neurosurgery 08/20/20 documented as of this encounter
--- OUTSIDE RECORDS SUMMARY | 2025-08-16 13:56 | XMS_ITS | Clinical Summary ---
Author Organization [facility] Address [address] [place] [address] Phone Care Team Providers Care Automation Technologist Name Role Phone Po, Hayden Mckeon MD Primary Care Provider [phone] Allergies No known active allergies Medications LEVOTHYROXINE SODIUM (LEVOTHYROXINE ORAL) Take 88 mcg by mouth. Active CYANOCOBALAMIN, VITAMIN B-12, (VITAMIN B-12 ORAL) Take by mouth. Active MAGNESIUM ORAL Take by mouth. Active gabapentin (NEURONTIN) 600 MG tablet Take 600 mg by mouth 4 (four) times a day as needed. Active ferrous sulfate 325 mg (65 mg [place] iron) tablet Take 325 mg by mouth [...] topic Medical Devices Not on file Insurance UseTogether MEDICARE PART A & B [facility] [place] [id number] MEDICARE PART A & [place] [id number] MED[place]ARE PART A & B [place] A [place] B [employer] [facility] Address: [address] [address] [place] [address] Care Teams Automation Technologist Relationship Specialty Start Date End Date Hayden Man MD [address] Y[place]ANNES RUSSELL [address] PCP - General Internal Medicine 07/18/17 Additional Source Comments The information contained in this document represents components of the legal health record. It is not the complete legal health record.[facility]
--- OUTSIDE RECORDS SUMMARY | 2025-08-16 13:56 | XMS_ITS | Encounter Summary ---
Author Organization [facility] Address [address] [place] [address] Care Team Providers Care General Farm Manager Name Role Phone Hayden Man MD Primary Care Provider [phone] Maggy Swartz MD Unavailable [phone] Encounter Details Date Type Department Care Team (Late st Contact Info) Description 12/16/2020 Scanned Document [facility] Neurosurgery [address] [place] [address] Bibi Maza PA Valid Address Needed Social [...] on filedocumented in this encounter Care Teams General Farm Manager Relationship Specialty Start Date End Date Hayden Man MD [address] [place] [address] [place] [address] PCP - General Internal Medicine 05/06/20 Maggy Swartz MD [address] [place] [address] Surgery, Neurosurgery 08/20/20 documented as of this encounter
--- OUTSIDE RECORDS SUMMARY | 2025-08-16 13:56 | XMS_ITS | Encounter Summary ---
Author Organization [facility] Address [address] [place] [address] Care Team Providers Care Metal Spray Operator Name Role Phone Hayden Man MD Primary Care Provider [phone] Maggy Swartz MD Unavailable [phone] Encounter Details Date Type Department Care Team (Late st Contact Info) Description 02/02/2021 Scanned Document [facility] Neurosurgery [place] [address] [address] Maggy Swartz MD [address] [address] Social History Tobacco Use Types Packs/Day Years [...] on filedocumented in this encounter Care Teams Metal Spray Operator Relationship Specialty Start Date End Date Hayden Man MD [address] [place] [address] Dr Vo Vida AkersYOHANNES rogers [address] PCP - General Internal Medicine 05/06/20 Maggy Swartz MD [address] [place] [address] Surgery, Neurosurgery 08/20/20 documented as of this encounter
--- OUTSIDE RECORDS SUMMARY | 2025-08-16 13:56 | XMS_ITS | Encounter Summary ---
Author Organization [facility] Address [address] [place] [address] Care Team Providers Care Quality Process Lead Name Role Phone Hayden Man MD Primary Care Provider [phone] Maggy Swartz MD Unavailable [phone] Encounter Details Date Type Department Care Team (Late st Contact Info) Description 02/02/2021 Scanned Document [facility] Neurosurgery [place] [address] [address] Maggy Swartz MD [address] [address] Social History Tobacco Use Types Packs/Day Years [...] on filedocumented in this encounter Care Teams Quality Process Lead Relationship Specialty Start Date End Date Hayden Man MD [address] [place] [address] Dr Vo Vida AkersYOHANNES rogers [address] PCP - General Internal Medicine 05/06/20 Maggy Swartz MD [address] [place] [address] Surgery, Neurosurgery 08/20/20 documented as of this encounter
== END 2025-08-16 11:11 | disposition home or self-care (01) ==
LOC: HO.MAMMO 11:10
PROVIDERS: PCP Internal Medicine; Visit Provider Internal Medicine
DX: S52.502K Unspecified fracture of the lower end of left radius, subsequent encounter for closed fracture with nonunion (principal); M81.0 Age-related osteoporosis without current pathological fracture
CPT/HCPCS: 77081

== ENCOUNTER → 2025-08-16 11:30 | Outpatient (BNV) | payer MEDICARE, MEDICAID, SELFPAY | PROVIDERS: PCP Internal Medicine; Visit Provider Radiology Diagnostic Radiology | DX: E28.39 Other primary ovarian failure (principal) | CPT/HCPCS: 77081 ==

== ENCOUNTER 2025-08-27 09:08 | Outpatient (REF) | payer MEDICARE, SELFPAY ==
--- NOTE | ~2025-08-27 | XR_ITS ---
EXAMINATION: XR WRIST, LEFT CLINICAL INFORMATION: M25.532 - Pain in left wrist COMPARISON: May 08, 2025. Correlated to CT dated June 22, 2025. TECHNIQUE: PA, lateral, and oblique views of the left wrist. FINDINGS: There is an intact metallic plate placed in the volar aspect of the distal radius with anchor screws in the proximal and distal segment. There is loosening in the radial aspect distal epiphysis of the radius. There is sclerosis along the fracture of the distal metaphysis/diaphysis of the radius with a 4 mm gap at the fragments. Osteopenia versus osteoporosis. Degenerative changes in the carpal bones and first carpometacarpal joint and likely metacarpophalangeal joints of the first second and third digits. No subcutaneous emphysema. No lytic or blastic lesions. XR/XR wrist LT min 3V IMPRESSION: Healing fracture with the 4 mm gap between the fragments. Concerning loosening within the radial aspect of the distal epiphysis, left radius. Electronically signed by: Lucio Forbes MD 08/27/2025 09:37 AM EDT
--- OUTSIDE RECORDS SUMMARY | 2025-08-28 10:24 | XMS_ITS | Clinical Summary ---
Author Organization [facility] it Address [address] [place] [address] Care Team Providers Care Inbound Sales Advisor Name Role Phone Unavailable Primary Care Provider [...] Info) Description 11/19/2025 1:00 PM EST Appointment [facility] Xray [address] [place] [address] Health Maintenance Due Date Last [...]
--- OUTSIDE RECORDS SUMMARY | 2025-08-28 10:24 | XMS_ITS | Encounter Summary ---
Author Organization [facility] Address [address] [place] [address] Phone Care Team Providers Care Portable Sawmill Operator Name Role Phone Hayden Man MD Primary Care Provider [phone] Encounter Details Date Type Department Care Team (Late st Contact Info) Description 10/13/2023 Procedure Pass [facility] [address] [place] [address] Social History Tobacco Use Types Packs/Day Years [...] on filedocumented in this encounter Care Teams Portable Sawmill Operator Relationship Specialty Start Date End Date Hayden Man MD [address] [place] [address] [place] [address] PCP - General Internal Medicine 07/18/17 documented as of this encounter Additional Source Comments The information contained in this document represents components of the legal health record. It is not the complete legal health record.[facility]
--- OUTSIDE RECORDS SUMMARY | 2025-08-28 10:24 | XMS_ITS | Encounter Summary ---
Author Organization [facility] Address [address] [place] [address] Care Team Providers Care Men'S Leather Dress Belt Maker Name Role Phone Hayden Man MD Primary Care Provider [phone] Maggy Swartz MD Unavailable [phone] Encounter Details Date Type Department Care Team (Late st Contact Info) Description 02/02/2021 Scanned Document [facility] Neurosurgery [place] [address] [address] Maggy Swartz MD [address] [address] Social History Tobacco Use Types Packs/Day Years [...] on filedocumented in this encounter Care Teams Men'S Leather Dress Belt Maker Relationship Specialty Start Date End Date Hayden Man MD [address] [place] [address] Dr Vo Vida AkersYOHANNES [place] [address] PCP - General Internal Medicine 05/06/20 Maggy Swartz MD [address] [place] [address] Surgery, Neurosurgery 08/20/20 documented as of this encounter
--- OUTSIDE RECORDS SUMMARY | 2025-08-28 10:24 | XMS_ITS | Encounter Summary ---
Author Organization [facility] Address [address] [place] [address] Care Team Providers Care Slitting Machine Operator Name Role Phone Hayden Man MD Primary Care Provider [phone] Maggy Swartz MD Unavailable [phone] Encounter Details Date Type Department Care Team (Late st Contact Info) Description 07/22/2021 Scanned Document [facility] Neurosurgery [place] [address] [address] Maggy Swartz MD [address] [address] Social History Tobacco Use Types Packs/Day Years [...] on filedocumented in this encounter Care Teams Slitting Machine Operator Relationship Specialty Start Date End Date Hayden Man MD [address] [place] [address] [place] [address] PCP - General Internal Medicine 05/06/20 Maggy Swartz MD [address] [place] [address] Surgery, Neurosurgery 08/20/20 documented as of this encounter
--- OUTSIDE RECORDS SUMMARY | 2025-08-28 10:24 | XMS_ITS | Encounter Summary ---
Author Organization [facility] Address [address] [place] [address] Care Team Providers Care Remediation Project Engineer Name Role Phone Hayden Man MD Primary Care Provider [phone] Maggy Swartz MD Unavailable [phone] Encounter Details Date Type Department Care Team (Late st Contact Info) Description 09/11/2021 Scanned Document [facility] Neurosurgery [place] [address] [address] Maggy Swartz MD [address] [address] Social History Tobacco Use Types Packs/Day Years [...] on filedocumented in this encounter Care Teams Remediation Project Engineer Relationship Specialty Start Date End Date Hayden Man MD [address] [place] [address] [place] [address] PCP - General Internal Medicine 05/06/20 Maggy Swartz MD [address] [place] [address] Surgery, Neurosurgery 08/20/20 documented as of this encounter
--- OUTSIDE RECORDS SUMMARY | 2025-08-28 10:24 | XMS_ITS | Encounter Summary ---
Author Organization [facility] Address [address] [place] [address] Care Team Providers Care Hot Punch Press Operator Name Role Phone Hayden Man MD Primary Care Provider Maggy Swartz MD Unavailable [phone] Reason for Visit * Reason Comments Other Encounter Details Date Type Department Care Team (Late st Contact Info) Description 04/03/2021 Telephone [facility] Urologic Surgery [address] [phone] Hardik Reese MD [address] [place] [address] Other Social History Tobacco Use Types [...] Ct abdomen with and without [facility] documented in this encounter Plan of Treatment Not on file documented as of this encounter Visit Diagnoses Not on filedocumented in this encounter Care Teams Hot Punch Press Operator Relationship Specialty Start Date End Date Hayden Man MD [address] [place] [address] [address] [place] [address] PCP - General Internal Medicine 05/06/20 Maggy Swartz MD [address] [place] [address] Surgery, Neurosurgery 08/20/20 documented as of this encounter
--- OUTSIDE RECORDS SUMMARY | 2025-08-28 10:24 | XMS_ITS | Encounter Summary ---
Author Organization [facility] Address [address] [place] [address] Care Team Providers Care Helper Shear Operator Name Role Phone Hayden Man MD Primary Care Provider [phone] Maggy Swartz MD Unavailable [phone] Encounter Details Date Type Department Care Team (Late st Contact Info) Description 12/16/[address] [facility] Neurosurgery [address] [place] [address] Bibi Maza PA Valid Address Needed Social [...] on filedocumented in this encounter Care Teams Helper Shear Operator Relationship Specialty Start Date End Date Hayden Man MD [address] [place] [address] [place] [address] PCP - General Internal Medicine 05/06/20 Maggy Swartz MD [address] [place] [address] Surgery, Neurosurgery 08/20/20 documented as of this encounter
--- OUTSIDE RECORDS SUMMARY | 2025-08-28 10:24 | XMS_ITS | Encounter Summary ---
Author Organization [facility] Address [address] [place] [address] Care Team Providers Care Spinner Box Name Role Phone Hayden Man MD Primary Care Provider [phone] Maggy Swartz MD Unavailable [phone] Encounter Details Date Type Department Care Team (Late st Contact Info) Description 02/02/2021 Scanned Document [facility] Neurosurgery [place] [address] [address] Maggy Swartz MD [address] [address] Social History Tobacco Use Types Packs/Day Years [...] on filedocumented in this encounter Care Teams Spinner Box Relationship Specialty Start Date End Date Hayden Man MD [address] [place] [address] Dr Vo Vida AkersYOHANNES [place] [address] PCP - General Internal Medicine 05/06/20 Maggy Swartz MD [address] [place] [address] Surgery, Neurosurgery 08/20/20 documented as of this encounter
--- OUTSIDE RECORDS SUMMARY | 2025-08-28 10:24 | XMS_ITS | Encounter Summary ---
Author Organization [facility] Address [address] [place] [address] Care Team Providers Care Processing Specialist Name Role Phone Hayden Man MD Primary Care Provider [phone] Maggy Swartz MD Unavailable [phone] Encounter Details Date Type Department Care Team (Late st Contact Info) Description 12/16/2020 Scanned Document [facility] Neurosurgery [address] [place] [address] Bibi Maza PA Valid Address Needed Social [...] on filedocumented in this encounter Care Teams Processing Specialist Relationship Specialty Start Date End Date Hayden Man MD [address] [place] [address] [place] [address] PCP - General Internal Medicine 05/06/20 Maggy Swartz MD [address] [place] [address] Surgery, Neurosurgery 08/20/20 documented as of this encounter
--- OUTSIDE RECORDS SUMMARY | 2025-08-28 10:24 | XMS_ITS | Encounter Summary ---
Author Organization [facility] Address [address] [place] [address] Care Team Providers Care Nuclear Powerplant Mechanic Name Role Phone Hayden Man MD Primary Care Provider [phone] Maggy Swartz MD Unavailable [phone] Encounter Details Date Type Department Care Team (Late st Contact Info) Description 03/24/2021 Scanned Document [address] [address] Bibi Maza PA Valid Address [...] on filedocumented in this encounter Care Teams Nuclear Powerplant Mechanic Relationship Specialty Start Date End Date Hayden Man MD [address] [place] [address] [place] [address] PCP - General Internal Medicine 05/06/20 Maggy Swartz MD [address] [place] [address] Surgery, Neurosurgery 08/20/20 documented as of this encounter
--- OUTSIDE RECORDS SUMMARY | 2025-08-28 10:25 | XMS_ITS | Clinical Summary ---
Author Organization [facility] Address [address] [place] [address] Phone Care Team Providers Care Puppy Trainer Name Role Phone Po, Hayden Mckeon MD Primary Care Provider [phone] Allergies No known active allergies Medications LEVOTHYROXINE SODIUM (LEVOTHYROXINE ORAL) Take 88 mcg by mouth. Active CYANOCOBALAMIN, VITAMIN B-12, (VITAMIN B-12 ORAL) Take by mouth. Active MAGNESIUM ORAL Take by mouth. Active gabapentin (NEURONTIN) 600 MG tablet Take 600 mg by mouth 4 (four) times a day as needed. Active ferrous sulfate 325 mg (65 mg ute iron) tablet Take 325 mg by mouth [...] topic Medical Devices Not on file Insurance [employer] MEDICARE PART A & [facility] [place] [id number] MEDICARE PART A [place] [id number] MEDICARE PART A & [place] A & B [facility] Care Teams Puppy Trainer Relationship Specialty Start Date End Date Hayden Man MD [address] [place] [address] PCP - General Internal Medicine 07/18/17 Additional Source Comments The information contained in this document represents components of the legal health record. It is not the complete legal health record.[facility]
--- OUTSIDE RECORDS SUMMARY | 2025-08-28 10:25 | XMS_ITS | Encounter Summary ---
Author Organization [facility] Address [address] [place] [address] Care Team Providers Care Research Nurse Practitioner Name Role Phone Hayden Man MD Primary Care Provider [phone] Maggy Swartz MD Unavailable [phone] Encounter Details Date Type Department Care Team (Late st Contact Info) Description 12/16/2020 Scanned Document [facility] Neurosurgery [address] [place] [address] Bibi Maza PA Valid Address Needed Social [...] on filedocumented in this encounter Care Teams Research Nurse Practitioner Relationship Specialty Start Date End Date Hayden Man MD [address] [place] [address] [place] [address] PCP - General Internal Medicine 05/06/20 Maggy Swartz MD [address] [place] [address] Surgery, Neurosurgery 08/20/20 documented as of this encounter
--- OUTSIDE RECORDS SUMMARY | 2025-08-28 10:25 | XMS_ITS | Encounter Summary ---
Author Organization [address] [address] Care Team Providers Care Shredder Operator Name Role Phone Hayden Man MD Primary Care Provider [phone] Maggy Swartz MD Unavailable [phone] Encounter Details Date Type Department Care Team (Late st Contact Info) Description 09/17/2020 Scanned Document [facility] Neurosurgery [place] 85 [facility] [address] [place] [address] Maggy Swartz MD 85 [facility] [place] [address] [place] [address] Social History Tobacco Use Types Packs/Day Years [...] on filedocumented in this encounter Care Teams Shredder Operator Relationship Specialty Start Date End Date Hayden Man MD [address] [place] [address] Dr [address] [place] [address] PCP - General Internal Medicine 05/06/20 Maggy Swartz MD [address] [place] [address] Surgery, Neurosurgery 08/20/20 documented as of this encounter
--- OUTSIDE RECORDS SUMMARY | 2025-08-28 10:26 | XMS_ITS | Clinical Summary ---
Author Organization [facility] Address [address] [place] [address] Care Team Providers Care Money Market Clerk Name Role Phone Hayden Man MD Primary Care Provider [phone] Maggy Swartz MD Unavailable [phone] Allergies No known active allergies Medications [...] this topic Medical Devices Implanted Type Area Die Engraving Supervisor Device Identifier Shelf Expiration Date Model / Serial / Lot [id number] Spacer Spinal [id number] Cpstn Peek Ptc Lmbr Intrbd Fs Sterl - [id number] Implanted:Qty: 1 on 09/08/2020 by Maggy Swartz MD at [facility] Cage N/A: Spine Lumbar [employer] MINIMALLY INVASIVE T 10/20/2026 [id number] / / [id number] Ashok Spinal 70mm 5.5mm Cd Hzn Crv Ti Cp4 Nonst - [id number] Implanted:Qty: 2 on 09/08/2020 by Maggy Swartz MD at [facility] Nail/Ashok N/A: Spine Lumbar [employer] MINIMALLY INVASIVE T [id number] / / [id number] Screw Bone Spine Solera Cd Hzn 40mm Cocr 5.5mm Ma Nonst 5.5 - [id number] Implanted:Qty: 2 on 09/08/2020 by Maggy Swartz MD at [facility] Spine N/A: Spine Lumbar [employer] MINIMALLY INVASIVE T [id number] / / [id number] Screw Bone Spine Cd Hzn Solera 45mm Ti Cocr 5.5mm Ma Nonst - [id number] Implanted:Qty: 4 on 09/08/2020 by Maggy Swartz MD at [facility] Spine N/A: Spine Lumbar [employer] MINIMALLY INVASIVE T [id number] / / [id number] Screw Set Ti Spine Brk Off Cd Hzn Nonst 5.5 Mm Ashok - [id number] Implanted:Qty: 6 on 09/08/2020 by Maggy Swartz MD at [facility] Spine N/A: Spine Lumbar [employer] MINIMALLY INVASIVE T [id number] / / [id number] Filler Bone Void 10cc Dbx Algrf Frzdr Putty - [id number] Implanted:Qty: 1 on 09/08/2020 by Maggy Swartz MD at [facility] Void Filler N/A: Spine Lumbar [employer] FOU 03/19/2022 [id number] / [id number] / [id number] Filler Bone Void 10cc Dbx Algrf Frzdr Putty - [id number] Implanted:Qty: 1 on 09/08/2020 by Maggy Swartz MD at [facility] Void Filler N/A: Spine Lumbar [employer] FOU 12/13/2021 [id number] / [id number] / [id number] Filler Bone Void 10cc Dbx Algrf Frzdr Putty - [id number] Implanted:Qty: 1 on 09/08/2020 by Maggy Swartz MD at [facility] Void Filler N/A: Spine Lumbar [employer]KELET[employer] TRANSPLANT FOU 03/19/2022 [id number] / [id number] / Insurance [facility] Advance Directives * Full Code (Latest Code Status on File) Date Activated Date Inactivated Comments 09/08/2020 8:09 PM * Full Code Date Activated Date Inactivated Comments 09/08/2020 9:46 AM 09/08/2020 8:09 PM * Full Code Date Activated Date Inactivated Comments 06/25/2020 3:59 PM 09/08/2020 9:10 AM * Full Code Date Activated Date Inactivated Comments 06/25/2020 8:24 AM 06/25/2020 3:59 PM Care Teams Money Market Clerk Relationship Specialty Start Date End Date Hayden Man MD [address] [place] [address] [address] [place] [address] PCP - General Internal Medicine 05/06/20 Maggy Swartz MD [address] [place] [address] Surgery, Neurosurgery 08/20/20
--- OUTSIDE RECORDS SUMMARY | 2025-08-28 10:26 | XMS_ITS | Encounter Summary ---
Author Organization [address] [address] Care Team Providers Care Research & Analytics Manager Name Role Phone Hayden Man MD Primary Care Provider [phone] Maggy Swartz MD Unavailable [phone] Encounter Details Date Type Department Care Team (Late st Contact Info) Description 08/22/2020 Scanned Document [facility] Neurosurgery [place] 85 [facility] [address] [place] [address] Maggy Swartz MD 85 [facility] [place] [address] [place] [address] Social History Tobacco Use Types Packs/Day Years [...] filedocumented in this encounter Care Teams Research & Analytics Manager Relationship Specialty Start Date End Date Hayden Man MD [address] [place] [address] Dr [address] [place] [address] PCP - General Internal Medicine 05/06/20 Maggy Swartz MD [address] [place] [address] Surgery, Neurosurgery 08/20/20 documented as of this encounter
--- OUTSIDE RECORDS SUMMARY | 2025-08-28 10:26 | XMS_ITS | Encounter Summary ---
Author Organization [facility] Address [address] [place] [address] Care Team Providers Care Song Writer Name Role Phone Hayden Man MD Primary Care Provider [phone] Maggy Swartz MD Unavailable [phone] Reason for Visit * Reason Comments Medication Refill Encounter Details Date Type Department Care Team (Late st Contact Info) Description 09/27/2020 Refill [facility] Neurosurgery [address] [place] [address] Bibi Maza PA Valid Address Needed Lumbar [...] myelopathy documented in this encounter Care Teams Song Writer Relationship Specialty Start Date End Date Hayden Man MD [address] [place] [address] [address] [place] [address] PCP - General Internal Medicine 05/06/20 Maggy Swartz MD [address] [place] [address] Surgery, Neurosurgery 08/20/20 documented as of this encounter
== END 2025-08-27 09:09 | disposition home or self-care (01) ==
LOC: HO.HOSX 09:08
PROVIDERS: Visit Provider Orthopaedic Surgery
DX: S52.502K Unspecified fracture of the lower end of left radius, subsequent encounter for closed fracture with nonunion (principal); R29.6 Repeated falls; G89.4 Chronic pain syndrome; Z72.0 Tobacco use; X58.XXXD Exposure to other specified factors, subsequent encounter
CPT/HCPCS: 73110; 99212

== ENCOUNTER 2025-08-27 09:21 | Outpatient (AMB) | payer MEDICARE, MEDICAID, SELFPAY ==
[2025-08-27 10:00] VITALS: BMI 28.5
--- NOTE | 2025-08-27 10:00 | MHC.OFFVIS ---
Vital Signs 08/27/25 10:00 Height 5 ft 5 in Weight 171 lb BMI 28.5 Intake Visit Reasons: O/V Left wrist pain:S/P Bone Stimulator Intake Note: Claudia 65 yr old right hand dominant female presents today Left distal radius non-union, S/P ORIF DOS: 02/14/25, S/P fall, DOI: 02/09/25, Reduced in ED: 02/09/25. At her last visit she was advise to use a bone stimulator. States she uses the machine daily about 3 hours per day. States she has little to no pain and has good ROM. Continues to wear her wrist brace. Allergies No Known Allergies (No Known Allergies*) Allergy (Verified 08/27/25 10:04) HPI HPI O/V Left wrist pain:S/P Bone Stimulator: Details: Claudia is a 65 year old right hand dominant woman who at last visit was found to have developed a nonunion S/P left distal radius ORIF, DOS: 02/14/25. S/P fall, DOI: 02/09/25. At last visit we talked about the importance of activity modification, smoking cessation, talking with her primary care provider about evaluating her for medical reasons for nonunion such as vitamin-D deficiency. She was also started on a bone stimulator which she says that she has been using. She says that she has also cut back on her smoking in his awaiting the results of the labs and bone density test she had with her primary care provider. She is here for a ROM check and see how she is progressing She says that she has been wearing her splint and been more careful with her activities. She denies having any pain. She denies smoking but says she vapes several times daily. She says she has cut down alot on her daily use. She denies any numbness or tingling. She says she fell at the time of her injury, due to her left leg giving way. 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 She sees Pain Management for this. 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 [facility] Medical History Breast cancer screening by mammogram Generalized anxiety disorder Left leg paresthesias Bacterial vaginosis Anxiety Opioid use disorder Chronic pain syndrome Postlaminectomy syndrome Complex regional pain syndrome i of left lower limb Primary osteoarthritis of left knee Tobacco abuse Renal lesion Closed left ankle fracture Cervical disc herniation Hypothyroidism Surgical History Hx of cervical discectomy H/O colonoscopy H/O lumbar discectomy Spinal stenosis History of left knee surgery Left ACL tear Family History Father No problems noted. 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 Cognitive needs: No Hearing needs: No Vision needs: No Physical Exam Vital Signs: BMI result Body Mass Index 28.5 Const General: no acute distress and alert Orientation/consciousness: patient oriented x3 Neuro General: patient oriented x3 Extrem Other: Evaluation of Left Upper Ext/remity: The patient is alert, oriented, and in no acute distress Sensation is normal to the tips of all digits Cap refill brisk ROM: She can make a fist and extend all her digits, with no pain Full & symetrical pronosupination Fracture site non-tender Definite leach line where she has been wearing her splint Radiographs: 3 views of the left wrist from today were reviewed by me today in clinic. They show a transverse distal radius fracture with satisfactory fracture alignment, position of all implants, no evidence of loosening, and , I am happy to say, some evidence of improved interval bony healing since last visit. Left wrist CT scan: Findings: Patient's initial radiographs from February 09, 2025 demonstrated a comminuted and impacted fracture of the distal radius. Patient's subsequently underwent placement of volar plate and screw device of the distal radius fracture identified on radiographs from February 26, 2025. On subsequent radiographs from April 03, 2025 and May 08, 2025, fracture line remains apparent without solid bony bridging at the fracture line. CT scan was subsequently performed. Patient's CT scan demonstrates unchanged position of the volar plate and screw device over the distal radius. This is spanning the fracture of the distal radial metaphysis. However, no significant callus formation or bony bridging is seen at the fracture line. There is sclerosis developing on both sides of the fracture line. Diastasis at the fracture line measuring up to 5 mm. Approximately 3 mm of posterior displacement of the distal fracture fragment. No fracture of the surgical hardware is evident. No bony destructive change seen to suggest osteolysis. Disuse osteopenia is evident. Impression: Status post open reduction internal fixation of the previously identified distal radius fracture. No bony bridging or callus formation seen of the fracture line concerning for delayed union or potentially developing nonunion given the timeframe of the patient's initial injury. Please see above for full details. 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 Left distal radius non-union, S/P ORIF DOS: 02/14/25 S/P fall, DOI: 02/09/25 Reduced in ED: 02/09/25 The patient appears to be doing well post-operatively in regards to pain She now has some evidence of early interval bony healing since she has been using a bone stimulator She will continue to wear her velcro wrist splint with daily activities - I recommend that she speak with Dr. AVENDANO, her PCP, concerning bloodwork including vitamin-D and calcium levels and possibly other metabolic studies to rule out these conditions as contributing factors in her lack of bony healing.? - I explained the effects of smoking on wound/bone healing, and recommend they stop smoking/vaping while healing, as we are very concerned that she is developing a non-union of her distal radius fracture. This includes vaping, Marijuana, and other Nicotine products including patches used to help quit. They expressed understanding and says she will work on attempting to stop her vaping.?She says she has cut down alot for her smoking & vaping. Continue use of her bone stimulator as she was directed. I discussed activity modifications, she is to lift nothing heavier than a cellphone She has a hx of frequent falls, CPS, CRPS affecting her LLE, and anxiety disorder She will follow up in 4-6 weeks, with X-rays, 3V L wrist, OOP Scribed for Sarahy Ramirez MD by Denis Silva, medical supervisor, on 08/27/25 at 10:05 AM, EST. 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
--- OUTSIDE RECORDS SUMMARY | 2025-08-27 10:35 | XMS_ITS | Encounter Summary ---
Author Organization [facility] Address [address] [place] [address] Care Team Providers Care Fish Conservationist Name Role Phone Hayden Man MD Primary Care Provider [phone] Maggy Swartz MD Unavailable [phone] Encounter Details Date Type Department Care Team (Late st Contact Info) Description 09/11/2021 Scanned Document [facility] [place] [address] [address] Maggy Swartz MD [address] [address] Social History Tobacco Use Types Packs/Day Years [...] filedocumented in this encounter Care Teams Fish Conservationist Relationship Specialty Start Date End Date Hayden Man MD [address] [place] [address] [place] [address] PCP - General Internal Medicine 05/06/20 Maggy Swartz MD [address] [place] [address] Surgery, Neurosurgery 08/20/20 documented as of this encounter
--- OUTSIDE RECORDS SUMMARY | 2025-08-27 10:35 | XMS_ITS | Encounter Summary ---
Author Organization [facility] Address [address] [place] [address] Care Team Providers Care Nutter Up Name Role Phone Hayden Man MD Primary Care Provider [phone] Maggy Swartz MD Unavailable [phone] Encounter Details Date Type Department Care Team (Late st Contact Info) Description 07/22/2021 Scanned Document [facility] Neurosurgery [place] [address] [address] Maggy Swartz MD [address] [address] Social History Tobacco Use Types Packs/Day Years [...] on filedocumented in this encounter Care Teams Nutter Up Relationship Specialty Start Date End Date Hayden Man MD [address] [place] [address] [place] [address] PCP - General Internal Medicine 05/06/20 Maggy Swartz MD [address] [place] [address] Surgery, Neurosurgery 08/20/20 documented as of this encounter
--- OUTSIDE RECORDS SUMMARY | 2025-08-27 10:35 | XMS_ITS | Encounter Summary ---
Author Organization [facility] Address [address] [place] [address] Phone Care Team Providers Care Sales Operations Consultant Name Role Phone Hayden Man MD Primary Care Provider [phone] Encounter Details Date Type Department Care Team (Late st Contact Info) Description 10/13/2023 Procedure Pass [facility], [facility] [address] [place] [address] Social History Tobacco Use Types Packs/Day Years [...] on filedocumented in this encounter Care Teams Sales Operations Consultant Relationship Specialty Start Date End Date Hayden Man MD [address] [place] [address] [place] [address] PCP - General Internal Medicine 07/18/17 documented as of this encounter Additional Source Comments The information contained in this document represents components of the legal health record. It is not the complete legal health record.[facility]
--- OUTSIDE RECORDS SUMMARY | 2025-08-27 10:35 | XMS_ITS | Encounter Summary ---
Author Organization [facility] Address [address] [place] [address] Care Team Providers Care Wholesale Representative Name Role Phone Hayden Man MD Primary Care Provider [phone] Maggy Swartz MD Unavailable [phone] Encounter Details Date Type Department Care Team (Late st Contact Info) Description 03/24/2021 Scanned Document [address] [address] Bibi Maza PA Valid Address [...] on filedocumented in this encounter Care Teams Wholesale Representative Relationship Specialty Start Date End Date Hayden Man MD [address] [place] [address] [place] [address] PCP - General Internal Medicine 05/06/20 Maggy Swratz MD [address] [place] [address] Surgery, Neurosurgery 08/20/20 documented as of this encounter
--- OUTSIDE RECORDS SUMMARY | 2025-08-27 10:36 | XMS_ITS | Encounter Summary ---
Author Organization [facility] Address [address] [place] [address] Care Team Providers Care Bryologist Name Role Phone Hayden Man MD Primary Care Provider [phone] Maggy Swartz MD Unavailable [phone] Encounter Details Date Type Department Care Team (Late st Contact Info) Description 02/02/2021 Scanned Document [facility] Neurosurgery [place] [address] [address] Maggy Swartz MD [address] [address] Social History Tobacco Use Types Packs/Day Years [...] on filedocumented in this encounter Care Teams Bryologist Relationship Specialty Start Date End Date Hayden Man MD [address] [place] [address] Dr Vo Vida AkersYOHANNES [place] [address] PCP - General Internal Medicine 05/06/20 Maggy Swartz MD [address] [place] [address] Surgery, Neurosurgery 08/20/20 documented as of this encounter
--- OUTSIDE RECORDS SUMMARY | 2025-08-27 10:36 | XMS_ITS | Clinical Summary ---
Author Organization [facility] Address [address] [place] [address] Phone Care Team Providers Care Security Compliance Engineer Name Role Phone Po, Hayden Mckeon MD Primary Care Provider [phone] Allergies No known active allergies Medications LEVOTHYROXINE SODIUM (LEVOTHYROXINE ORAL) Take 88 mcg by mouth. Active CYANOCOBALAMIN, VITAMIN B-12, (VITAMIN B-12 ORAL) Take by mouth. Active MAGNESIUM ORAL Take by mouth. Active gabapentin (NEURONTIN) 600 MG tablet Take 600 mg by mouth 4 (four) times a day as needed. Active ferrous sulfate 325 mg (65 mg [place] iron) tablet Take 325 mg by mouth [...] topic Medical Devices Not on file Insurance Savored MEDICARE PART A & B [facility] [place] [id number] MEDICARE PART A & [place] [facility] [place] [id number] MEDICARE PART A & [place] & B [employer] [facility] Care Teams Security Compliance Engineer Relationship Specialty Start Date End Date Hayden Man MD [address] [place] [address] PCP - General Internal Medicine 07/18/17 Additional Source Comments The information contained in this document represents components of the legal health record. It is not the complete legal health record.[facility]
--- OUTSIDE RECORDS SUMMARY | 2025-08-27 10:36 | XMS_ITS | Encounter Summary ---
Author Organization [facility] Address [address] [place] [address] Care Team Providers Care Field Secretary Name Role Phone Hayden Man MD Primary Care Provider [phone] Maggy Swartz MD Unavailable [phone] Reason for Visit * Reason Comments Other Encounter Details Date Type Department Care Team (Late st Contact Info) Description 04/03/2021 Telephone [facility] Urologic Surgery [address] [phone] Hardik Reese MD [address] [place] [address] Other Social History Tobacco Use Types [...] without contrast to [facility]. documented in this encounter Plan of Treatment Not on file documented as of this encounter Visit Diagnoses Not on filedocumented in this encounter Care Teams Field Secretary Relationship Specialty Start Date End Date Hayden Man MD [address] [place] [address] [address] [place] [address] PCP - General Internal Medicine 05/06/20 Maggy Swartz MD [address] [place] [address] Surgery, Neurosurgery 08/20/20 documented as of this encounter
--- OUTSIDE RECORDS SUMMARY | 2025-08-27 10:36 | XMS_ITS | Clinical Summary ---
Author Organization [facility] it Address [address] [place] [address] Care Team Providers Care Rubber Goods Tester Name Role Phone Unavailable Primary Care Provider [...] Info) Description 11/19/2025 1:00 PM EST Appointment [facility] Xray [address] [place] [address] Health Maintenance Due Date Last [...]
--- OUTSIDE RECORDS SUMMARY | 2025-08-27 10:36 | XMS_ITS | Encounter Summary ---
Author Organization [facility] Address [address] [place] [address] Care Team Providers Care Director Of Marketing Analytics Name Role Phone Hayden Man MD Primary Care Provider [phone] Maggy Swartz MD Unavailable [phone] Encounter Details Date Type Department Care Team (Late st Contact Info) Description 12/16/2020 Scanned Document [facility] Neurosurgery [address] [place] [address] Bibi Maza PA Valid Address Needed Social [...] on filedocumented in this encounter Care Teams Director Of Marketing Analytics Relationship Specialty Start Date End Date Hayden Man MD [address] [place] [address] [place] [address] PCP - General Internal Medicine 05/06/20 Maggy Swartz MD [address] [place] [address] Surgery, Neurosurgery 08/20/20 documented as of this encounter
--- OUTSIDE RECORDS SUMMARY | 2025-08-27 10:36 | XMS_ITS | Encounter Summary ---
Author Organization [address] [address] Care Team Providers Care Technical Support 1 Software Engineer Name Role Phone Hayden Man MD Primary Care Provider [phone] Maggy Swartz MD Unavailable [phone] Encounter Details Date Type Department Care Team (Late st Contact Info) Description 08/22/2020 Scanned Document [facility] Neurosurgery [place] 85 [facility] [address] [place] [address] Maggy Swartz MD 85 [facility] [place] [address] [place] [address] Social History Tobacco Use Types Packs/Day Years [...] on filedocumented in this encounter Care Teams Technical Support 1 Software Engineer Relationship Specialty Start Date End Date Hayden Man MD [address] [place] [address] Dr [address] [place] [address] PCP - General Internal Medicine 05/06/20 Maggy Swartz MD [address] [place] [address] Surgery, Neurosurgery 08/20/20 documented as of this encounter
--- OUTSIDE RECORDS SUMMARY | 2025-08-27 10:36 | XMS_ITS | Encounter Summary ---
Author Organization [facility] Address [address] [place] [address] Care Team Providers Care Medical Scientific Officer Name Role Phone Hayden Man MD Primary Care Provider [phone] Maggy Swartz MD Unavailable [phone] Reason for Visit * Reason Comments Medication Refill Encounter Details Date Type Department Care Team (Late st Contact Info) Description 09/27/2020 Refill [facility] Neurosurgery [address] [place] [address] Bibi Maza PA Valid Address Needed Lumbar [...] myelopathy documented in this encounter Care Teams Medical Scientific Officer Relationship Specialty Start Date End Date Hayden Man MD [address] [place] [address] [address] [place] [address] PCP - General Internal Medicine 05/06/20 Maggy Swartz MD [address] [place] [address] Surgery, Neurosurgery 08/20/20 documented as of this encounter
--- OUTSIDE RECORDS SUMMARY | 2025-08-27 10:36 | XMS_ITS | Clinical Summary ---
Author Organization [facility] Address [address] [place] [address] Care Team Providers Care Assistant Plant Manager Name Role Phone Hayden Man MD Primary Care Provider [phone] Maggy Swartz MD Unavailable [phone] Allergies No known active allergies Medications [...] this topic Medical Devices Implanted Type Area Social Services Technician Device Identifier Shelf Expiration Date Model / Serial / Lot [id number] Spacer Spinal [id number] Cpstn Peek Ptc Lmbr Intrbd Fs Sterl - [id number] Implanted:Qty: 1 on 09/08/2020 by Maggy Swartz MD at [place] N/A: Spine Lumbar [employer] - DI 10/20/2026 [id number] / / [id number] Ashok Spinal 70mm 5.5mm Cd Hzn Crv Ti Cp4 Nonst - [id number] Implanted:Qty: 2 on 09/08/2020 by Maggy Swartz MD at [place]/Ashok N/A: Spine Lumbar [employer] - DI [id number] / / [id number] Screw Bone Spine Solera Cd Hzn 40mm Cocr 5.5mm Ma Nonst 5.5 - [id number] Implanted:Qty: 2 on 09/08/2020 by Maggy Swartz MD at Spine N/A: Spine Lumbar [employer] - DI [id number] / / [id number] Screw Bone Spine Cd Hzn Solera 45mm Ti Cocr 5.5mm Ma Nonst - [id number] Implanted:Qty: 4 on 09/08/2020 by Maggy Swartz MD at Spine N/A: Spine Lumbar [employer] - DI [id number] / / [id number] Screw Set Ti Spine Brk Off Cd Hzn Nonst 5.5 Mm Ashok - [id number] Implanted:Qty: 6 on 09/08/2020 by Maggy Swartz MD at Spine N/A: Spine Lumbar [employer] - DI [id number] / / [id number] Filler Bone Void 10cc Dbx Algrf Frzdr Putty - [id number] Implanted:Qty: 1 on 09/08/2020 by Maggy Swartz MD at Void Filler N/A: Spine Lumbar [employer] 03/19/2022 [id number] / [id number] / [id number] Filler Bone Void 10cc Dbx Algrf Frzdr Putty - [id number] Implanted:Qty: 1 on 09/08/2020 by Maggy Swartz MD at Void Filler N/A: Spine Lumbar [employer] 12/13/2021 [id number] / [id number] / [id number] Filler Bone Void 10cc Dbx Algrf Frzdr Putty - [id number] Implanted:Qty: 1 on 09/08/2020 by Maggy Swartz MD at Void Filler N/A: Spine Lumbar [employer] FOU 03/19/2022 [id number] / [id number] / Insurance [facility] Advance Directives * Full Code (Latest Code Status on File) Date Activated Date Inactivated Comments 09/08/2020 8:09 PM * Full Code Date Activated Date Inactivated Comments 09/08/2020 9:46 AM 09/08/2020 8:09 PM * Full Code Date Activated Date Inactivated Comments 06/25/2020 3:59 PM 09/08/2020 9:10 AM * Full Code Date Activated Date Inactivated Comments 06/25/2020 8:24 AM 06/25/2020 3:59 PM Care Teams Assistant Plant Manager Relationship Specialty Start Date End Date Hayden Man MD [address] [place] [address] [address] [place] [address] PCP - General Internal Medicine 05/06/20 Maggy Swartz MD [address] [place] [address] Surgery, Neurosurgery 08/20/20
--- OUTSIDE RECORDS SUMMARY | 2025-08-27 10:36 | XMS_ITS | Encounter Summary ---
Author Organization [facility] Address [address] [place] [address] Care Team Providers Care Software Implementation Project Manager Name Role Phone Hayden Man MD Primary Care Provider [phone] Maggy Swartz MD Unavailable [phone] Encounter Details Date Type Department Care Team (Late st Contact Info) Description 12/16/2020 Scanned Document [facility] Neurosurgery [address] [place] [address] Bibi Maza PA Valid Address Needed Social [...] on filedocumented in this encounter Care Teams Software Implementation Project Manager Relationship Specialty Start Date End Date Hayden Man MD [address] [place] [address] [place] [address] PCP - General Internal Medicine 05/06/20 Maggy Swartz MD [address] [place] [address] Surgery, Neurosurgery 08/20/20 documented as of this encounter
--- OUTSIDE RECORDS SUMMARY | 2025-08-27 10:36 | XMS_ITS | Encounter Summary ---
Author Organization [facility] Address [address] [place] [address] Care Team Providers Care Shrub Planter Name Role Phone Hayden Man MD Primary Care Provider [phone] Maggy Swartz MD Unavailable [phone] Encounter Details Date Type Department Care Team (Late st Contact Info) Description 02/02/[address] [facility] Neurosurgery [place] [address] [address] Maggy Swartz MD [address] [address] Social History Tobacco Use Types Packs/Day Years [...] on filedocumented in this encounter Care Teams Shrub Planter Relationship Specialty Start Date End Date Hayden Man MD [address] [place] [address] Dr Vo Vida AkersYOHANNES ro[place] [address] PCP - General Internal Medicine 05/06/20 Maggy Swartz MD [address] [place] [address] Surgery, Neurosurgery 08/20/20 documented as of this encounter
--- OUTSIDE RECORDS SUMMARY | 2025-08-27 10:36 | XMS_ITS | Encounter Summary ---
Author Organization [address] [address] Care Team Providers Care Brusher Warp Name Role Phone Hayden Man MD Primary Care Provider [phone] Maggy Swartz MD Unavailable [phone] Encounter Details Date Type Department Care Team (Late st Contact Info) Description 09/17/2020 Scanned Document [facility] Neurosurgery [place] 85 [facility] [address] [place] [address] Maggy Swartz MD 85 [facility] [place] [address] [place] [address] Social History Tobacco Use Types Packs/Day Years [...] on filedocumented in this encounter Care Teams Brusher Warp Relationship Specialty Start Date End Date Hayden Man MD [address] [place] [address] Dr Vo [address] [place] [address] PCP - General Internal Medicine 05/06/20 Maggy Swartz MD [address] [place] [address] Surgery, Neurosurgery 08/20/20 documented as of this encounter
--- OUTSIDE RECORDS SUMMARY | 2025-08-27 10:36 | XMS_ITS | Encounter Summary ---
Author Organization [facility] Address [address] [place] [address] Care Team Providers Care Guard Driver Name Role Phone Hayden Man MD Primary Care Provider [phone] Maggy Swartz MD Unavailable [phone] Encounter Details Date Type Department Care Team (Late st Contact Info) Description 12/16/2020 Scanned Document [facility] Neurosurgery [address] [place] [address] Bibi Maza PA Valid Address Needed Social [...] on filedocumented in this encounter Care Teams Guard Driver Relationship Specialty Start Date End Date Hayden Man MD [address] [place] [address] [place] [address] PCP - General Internal Medicine 05/06/20 Maggy Swartz MD [address] [place] [address] Surgery, Neurosurgery 08/20/20 documented as of this encounter
== END 2025-08-27 10:10 | disposition home or self-care (01) ==
LOC: HO.HOS 09:22
PROVIDERS: PCP Internal Medicine; Visit Provider Orthopaedic Surgery
DX: S52.502K Unspecified fracture of the lower end of left radius, subsequent encounter for closed fracture with nonunion (principal); R29.6 Repeated falls; G89.4 Chronic pain syndrome; Z72.0 Tobacco use
CPT/HCPCS: 99213

== ENCOUNTER → 2025-08-27 09:24 | Outpatient (BNV) | payer MEDICARE, SELFPAY | PROVIDERS: Visit Provider Radiology Diagnostic Radiology | DX: M25.532 Pain in left wrist (principal) | CPT/HCPCS: 73110 ==

== ENCOUNTER 2025-09-11 09:57 | Outpatient (AMB) | payer MEDICARE, MEDICAID, SELFPAY ==
[2025-09-11 10:04] VITALS: BP 100/60; PULSE 86; TEMP 36.3; O2SAT 98; BMI 29.3
--- NOTE | 2025-09-11 10:04 | MHC.PC.OV ---
Vital Signs 09/11/25 10:04 Height 5 ft 5 in Weight 176 lb BMI 29.3 BP 100/60 Blood Pressure Location Lt brachial Position Sitting Pulse 86 Pulse Source Pulse Oximeter Temp 97.3 F Temp Source Temporal Artery Scan Pulse Oximetry (%) 98 Oxygen Delivery Method Room Air Intake Visit Reasons: hypothyroid Allergies No Known Allergies (No Known Allergies*) Allergy (Verified 09/11/25 10:04) Medication List - Last Reconciled 09/11/25 by Hayden Man MD [toilet seat risers and Raised toilet seat As directed] alprazolam 0.25 mg PO DAILY ascorbate calcium (vitamin C) 500 mg PO DAILY aspirin (Adult Aspirin Regimen) 81 mg PO DAILY clotrimazole 1% 1 appl topical BID 4 weeks cyanocobalamin (vitamin B-12) 1,000 mcg PO .QOD duloxetine 60 mg (2 x 30 mg) PO DAILY 30 days gabapentin 600 mg PO TID ibuprofen 600 mg PO Q8H PRN levothyroxine 88 mcg PO QAM magnesium oxide 400 mg PO DAILY miscellaneous medical supply 1 ea miscellaneous DAILY [RAISED TOILET As directed] [Raised toilet seat As directed] [SHOWER Chair As directed] [toilet seat risers As directed] tramadol 50 mg PO DAILY triamcinolone acetonide 0.025% appl topical [WALK IN SHOWER As directed] [Wrist SPlints As directed] Tobacco use date assessed: 05/22/25 Dental Screening Dental Screen Date: 09/11/25 Did you have a dental visit in the last 12 months?: Yes Did you have a dental problem in the last 6 months where you did not have access to dental care?: No Was dental information given to patient?: Patient has dentist HPI hypothyroid HPI Details has another fall 1 week ago, sitting, in the kitchen, has a signal that she is going to pass out, , states sustained bruise R arm had head trauma occipital and woke up on the floor, sustained a 3 cm laceration occiput. [facility] Medical History Breast cancer screening by mammogram Generalized anxiety disorder Left leg paresthesias Bacterial vaginosis Anxiety Opioid use disorder Chronic pain syndrome Postlaminectomy syndrome Complex regional pain syndrome i of left lower limb Primary osteoarthritis of left knee Tobacco abuse Renal lesion Closed left ankle fracture Cervical disc herniation Hypothyroidism Surgical History Hx of cervical discectomy H/O colonoscopy H/O lumbar discectomy Spinal stenosis History of left knee surgery Left ACL tear Family History Father No problems noted. 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 Cognitive needs: No Hearing needs: No Vision needs: No Questionnaire Thrive Questionnaire Date Thrive assessed: 03/26/25 I am a: Patient What is your living situation today?: I have a steady place to live Within the past 12 months, did the food you bought not last and you didn't have the money to get more?: Never true Within the past 12 months, did you worry whether your food would run out before you got money to buy more?: Never true Do you have trouble paying for medicines?: No Do you have trouble getting transportation to medical appointments?: No Do you have trouble paying your heating and electricity bill?: No Do you have trouble taking care of your child, family member or friend?: No Do you have trouble with day-to-day activities such as bathing, preparing meals, shopping, managing finances, etc.?: No Are you currently unemployed and looking for a job?: No Are you interested in more education?: No Please select the resources that you would like help with: Paying for medicine Currently or been in a relationship where the following occur: No concerns reported THRIVE Score: 0 JESSICA-7 AMB Questionnaire JESSICA-7 Date JESSICA - 7 assessed: 01/22/25 Source: Developed by Drs. Tai Viramontes, Sherlyn B.W. Stalin Garza and colleagues, with an educational marcie from [employer]. Physical exam (Primary Care) Vital Signs: Last Vital Signs Temp 97.3 F 09/11/25 10:04 Pulse 86 09/11/25 10:04 BP 100/60 09/11/25 10:04 Pulse Ox 98 09/11/25 10:04 Oxygen Delivery Method Room Air 09/11/25 10:04 BMI result Body Mass Index 29.3 Tobacco/Smoking Status: Tobacco use Status Tobacco use date assessed 05/22/25 09/11/25 10:05 Patient Tobacco Use Status Former Tobacco user 09/11/25 10:05 Tobacco use type Cigarette 09/11/25 10:05 e-Cigarette/Vaping Use Currently Using 09/11/25 10:05 Thrive Assessment: Date of Thrive Assessment Date Thrive assessed 03/26/25 09/11/25 10:05 Currently or been in a relationship where the following occur: No concerns reported Const General: alert; No acute distress Eyes Conjunctivae: conjunctivae normal Resp Auscultation: clear to auscultation bilaterally Cardio Rate: regular rate Rhythm: regular rhythm GI Inspection: Yes normal to inspection Extrem General: Yes normal to inspection and No edema Coding Level of Care Code Est Pt Level 4 (93858) Complex EM visit Add On G2211 Diagnoses Orthostatic hypotension I95.1 Acquired hypothyroidism E03.9 Hypothyroidism type: acquired Overweight (BMI 25.0-29.9) E66.3 Generalized anxiety disorder F41.1 Distal radius fracture, left S52.532A Encounter type: initial encounter Fracture morphology: Colles' Fracture type: closed Complex regional pain syndrome i of left lower limb G90.522 Tobacco abuse Z72.0 Syncope and collapse R55 Head trauma S09.90XA Assessment & Plan Assessment & Plan (1) Orthostatic hypotension: Code(s): I95.1 - Orthostatic hypotension Category: Medical Plan: Patient's cardiac workup has been negative and EEG recently was negative. Does have an upcoming tilt-table test. Advised to increase fluids as well as salt intake. (2) Hypothyroidism: Code(s): E03.9 - Hypothyroidism, unspecified Category: Medical Qualifiers: Hypothyroidism type: acquired Qualified Code(s): E03.9 - Hypothyroidism, unspecified Plan: Continue with thyroid medication (3) Overweight (BMI 25.0-29.9): Code(s): E66.3 - Overweight Category: Medical Plan: Diet and exercise (4) Generalized anxiety disorder: Code(s): F41.1 - Generalized anxiety disorder Category: Medical Plan: Continue with present medication of gabapentin duloxetine alprazolam (5) Distal radius fracture, left: Comment: Status post ORIF January 2025 Code(s): S52.502A - Unspecified fracture of the lower end of left radius, initial encounter for closed fracture Category: Medical Qualifiers: Encounter type: initial encounter Fracture morphology: Colles' Fracture type: closed Qualified Code(s): S52.532A - Colles' fracture of left radius, initial encounter for closed fracture Plan: Continue to follow-up with ortho and signs of bone healing good. (6) Complex regional pain syndrome i of left lower limb: Code(s): G90.522 - Complex regional pain syndrome I of left lower limb Category: Medical Plan: On gabapentin for management of pain (7) Tobacco abuse: Comment: Quitting discussed She declined Chantix or nicotine patch stopped 10/2023 Doing vapes Code(s): Z72.0 - Tobacco use Category: Medical Plan: Patient is strongly advised to stop smoking (8) Syncope and collapse: Comment: 09/05/2025 Code(s): R55 - Syncope and collapse Category: Medical Plan: Patient's workup so far has been negative. Advised to keep well hydrated (9) Head trauma: Comment: september 05, 2025 Code(s): S09.90XA - Unspecified injury of head, initial encounter Category: Medical Plan History of Present Illness The patient is a 65-year-old overweight female presenting for follow-up of multiple chronic conditions and a recent syncopal episode. She experienced a syncopal episode while sitting at her kitchen bar, which was preceded by a prodrome that prompted her to try to get to the floor. During the fall, she sustained a large bruise on her arm and hit her head on a concrete counter, causing a laceration that bled. She was alone, does not know the duration of the loss of consciousness, and noticed blood on her pillow the next morning. The patient reports increased dizziness since the episode. 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 She was advised to use a bone stimulator and has shown some evidence of early interval bony healing. She follows up with orthopedics for this condition. Her past medical history is significant for chronic pain secondary to a lumbar discectomy, post-laminectomy syndrome, and complex regional pain syndrome of the left lower limb. She has been evaluated by pain management, had an intrathecal pump removed, and is a candidate for DRG stimulation pending psychological evaluation. Current medications for pain and mood include gabapentin 1800 mg twice daily, duloxetine taken incorrectly at 30 mg three times daily, and alprazolam at bedtime. She uses tramadol very infrequently and did not take it around the time of her fall. Additional history includes hypothyroidism, generalized anxiety disorder, depression, and being a current smoker. A cardiac workup for syncope, including a Holter monitor in July, was negative, showing normal sinus rhythm. A prior EEG in July was also negative. A tilt table test is scheduled. Blood work from July showed macrocytosis and mild leukopenia, but otherwise normal indices including electrolytes, renal and liver function, B12, vitamin D, folic acid, and thyroid levels. Health Maintenance The patient was strongly advised to stop smoking. General recommendations for diet and exercise were also discussed. Social History - Substance Use: The patient is a current smoker. - Substance Use: The patient reports taking only one tramadol since it was prescribed in May, indicating infrequent use. Review of Systems - Constitutional: Reports being overweight. - Neurological: Reports a recent syncopal episode with a preceding prodrome. - Neurological: Reports significant dizziness since . - Neurological: Reports intermittent numbness and tingling in one hand when sitting, which improves with repositioning. - Head: Reports hitting her head during a fall, resulting in a laceration and bleeding. - Musculoskeletal: Reports a large, painful bruise on her arm. - Musculoskeletal: Reports hip pain, particularly when walking more. - Psychiatric: History of generalized anxiety disorder and depression. Physical Exam - General: Patient appears as an overweight female. - Skin: Large bruise noted on the arm. - Head: Noted to have a large gash on the head. - Neurologic: Hand roof foreman normal. - Neurologic: No focal numbness appreciated on exam. - Neurologic: Able to close eyes tightly. - Musculoskeletal: Neck flexion intact without reported pain. - Musculoskeletal: No tenderness on palpation of the hip. - Musculoskeletal: No pain with lateral movement of the hip. Results - Labs (July 12): No anemia. - Labs (July 12): Macrocytosis with mild leukopenia and normal platelet count. - Labs (July 12): Electrolytes, renal function, blood sugar, liver function, cholesterol, B12, vitamin D, folic acid, and thyroid levels all within normal limits. - Tests and Diagnostics: Holter monitor (August 05) showed normal sinus rhythm with no pauses or reported events. - Tests and Diagnostics: Bone density scan (July 2025) showed normal bone mineral density. - Tests and Diagnostics: EEG (July) was negative. - Tests and Diagnostics: Wrist CT was performed in May. - Tests and Diagnostics: Urinalysis on July 12 was concerning for infection. Plan Patient was informed and verbally consented to the use of an ambient scribe for clinic note documentation during this visit. 1. Syncope And Dizziness The patient's recent syncopal episode and subsequent dizziness are concerning, especially given the head trauma sustained. Previous cardiac and neurologic workups, including a Holter monitor and EEG, have been negative. There is a high suspicion that medication side effects are a contributing factor. A head CT will be ordered to rule out any intracranial bleeding from the fall. The patient will proceed with the scheduled tilt table test. She was advised to increase fluid and salt intake to manage orthostasis. 2. Chronic Pain & Adverse Drug Effect The patient is on high doses of psychotropic medications for chronic pain, and it is believed these are causing significant side effects without providing adequate pain relief. The plan is to gradually taper her medications to mitigate these side effects. Gabapentin will be reduced from two 600 mg tablets three times a day to one 600 mg tablet three times a day. Duloxetine, which was being taken incorrectly as 30 mg three times daily, will be adjusted to 60 mg once daily. She may continue taking alprazolam at bedtime as needed. No new prescriptions are being sent at this time. 3. Left Distal Radial Nonunion The patient is status post-ORIF for a left distal radial fracture with subsequent nonunion. She has been using a bone stimulator and is showing good signs of early bone healing. She will continue to follow up with her air intelligence specialist. 4. Hypothyroidism The patient's hypothyroidism is stable. She will continue her current thyroid medication. Discussion Notes I discussed with the patient that her recent syncopal episode is concerning, and while prior cardiac and neurologic evaluations have been negative, we need to re-evaluate her medications. I explained that her high dose of gabapentin and incorrect dosing of duloxetine are likely contributing to side effects such as dizziness and may have caused her fall. We agreed to a plan to slowly taper these medications, as stopping them abruptly can cause withdrawal. I informed her that I am ordering a CT scan of her head to ensure there is no bleeding from the fall. I advised her to proceed with the scheduled tilt table test and to increase her fluid and salt intake to help with orthostasis. We discussed her new hip pain and decided to defer an X-ray at this time to minimize radiation exposure. I strongly advised her to stop smoking. Patient Instructions - Reduce your gabapentin dose. - Instead of taking two tablets three times a day, take only one tablet three times a day. - Change how you take your duloxetine (Cymbalta). - Take two 30mg tablets together once a day. - Do not take it three times a day. - Go for a CT scan of your head to check for any problems from your fall. - Keep your appointment for the upcoming tilt table test. - Drink more fluids and increase your salt intake to help with dizziness. - You are strongly encouraged to stop smoking. - Continue to see your bone doctor (orthopedist) for your wrist. - Continue taking your thyroid medication as prescribed. Orders: Orders CT head/brain wo IV con Today S09.90XA - Unspecified injury of head, initial encounter Medications: Changed From gabapentin 1,800 mg (3 x 600 mg) PO BID 180 tabs 2RF M96.1 - Postlaminectomy syndrome, not elsewhere classified To gabapentin 600 mg PO TID 180 tabs 2RF M96.1 - Postlaminectomy syndrome, not elsewhere classified From duloxetine 90 mg (3 x 30 mg) PO DAILY 90 days 270 caps 3RF F41.1 - Generalized anxiety disorder To duloxetine 60 mg (2 x 30 mg) PO DAILY 60 caps 3RF 30 days F41.1 - Generalized anxiety disorder
--- OUTSIDE RECORDS SUMMARY | 2025-09-11 11:41 | XMS_ITS | Encounter Summary ---
Author Organization [facility] Address [address] [place] [address] Care Team Providers Care Kennel Staff Member Name Role Phone Hayden Man MD Primary Care Provider [phone] Maggy Swartz MD Unavailable [phone] Encounter Details Date Type Department Care Team (Late st Contact Info) Description 07/22/2021 Scanned Document [facility] Neurosurgery [place] [address] [address] Maggy Swartz MD [address] [address] Social History Tobacco Use Types Packs/Day Years [...] on filedocumented in this encounter Care Teams Kennel Staff Member Relationship Specialty Start Date End Date Hayden Man MD [address] [place] [address] Dr Vo Vida AkersYOHANNES rogers [address] PCP - General Internal Medicine 05/06/20 Maggy Swartz MD [address] [place] [address] Surgery, Neurosurgery 08/20/20 documented as of this encounter
--- OUTSIDE RECORDS SUMMARY | 2025-09-11 11:41 | XMS_ITS | Clinical Summary ---
Author Organization [facility] Address [address] [place] [address] Care Team Providers Care Carpet Repairer Name Role Phone Hayden Man MD Primary Care Provider [phone] Maggy Swartz MD Unavailable [phone] Allergies No known active allergies Medications [...] this topic Medical Devices Implanted Type Area Consumer Loan Underwriter Device Identifier Shelf Expiration Date Model / Serial / Lot [id number] Spacer Spinal [id number] Cpstn Peek Ptc Lmbr Intrbd Fs Sterl - [id number] Implanted:Qty: 1 on 09/08/2020 by Maggy Swartz MD at [facility] Cage N/A: Spine Lumbar [employer] MINIMALLY INVASIVE T 10/20/2026 [id number] / / [id number] Ashok Spinal 70mm 5.5mm Cd Hzn Crv Ti Cp4 Nonst - [id number] Implanted:Qty: 2 on 09/08/2020 by Maggy Swartz MD at [facility] Nail/Ashok N/A: Spine Lumbar [employer] MINIMALLY INVASIVE T [id number] / / [id number] Screw Bone Spine Solera Cd Hzn 40mm Cocr 5.5mm Ma Nonst 5.5 - [id number] Implanted:Qty: 2 on 09/08/2020 by Maggy Swartz MD at [facility] Spine N/A: Spine Lumbar [employer] MINIMALLY INVASIVE T [id number] / / [id number] Screw Bone Spine Cd Hzn Solera 45mm Ti Cocr 5.5mm Ma Nonst - [id number] Implanted:Qty: 4 on 09/08/2020 by Maggy Swartz MD at [facility] Spine N/A: Spine Lumbar [employer] MINIMALLY INVASIVE T [id number] / / [id number] Screw Set Ti Spine Brk Off Cd Hzn Nonst 5.5 Mm Ashok - [id number] Implanted:Qty: 6 on 09/08/2020 by Maggy Swartz MD at [facility] Spine N/A: Spine Lumbar [employer] MINIMALLY INVASIVE T [id number] / / [id number] Filler Bone Void 10cc Dbx Algrf Frzdr Putty - [id number] Implanted:Qty: 1 on 09/08/2020 by Maggy Swartz MD at [facility] Void Filler N/A: Spine Lumbar [employer] FOU 03/19/2022 [id number] / [id number] / [id number] Filler Bone Void 10cc Dbx Algrf Frzdr Putty - [id number] Implanted:Qty: 1 on 09/08/2020 by Maggy Swartz MD at [facility] Void Filler N/A: Spine Lumbar [employer]PL[employer] FOU 12/13/2021 [id number] / [id number] / [id number] Filler Bone Void 10cc Dbx Algrf Frzdr Putty - [id number] Implanted:Qty: 1 on 09/08/2020 by Maggy Swartz MD at [facility] Void Filler N/A: Spine Lumbar [employer]KELET[employer] TRANSPLANT FOU 03/19/2022 [id number] / [id number] / Insurance [facility] Advance Directives * Full Code (Latest Code Status on File) Date Activated Date Inactivated Comments 09/08/2020 8:09 PM * Full Code Date Activated Date Inactivated Comments 09/08/2020 9:46 AM 09/08/2020 8:09 PM * Full Code Date Activated Date Inactivated Comments 06/25/2020 3:59 PM 09/08/2020 9:10 AM * Full Code Date Activated Date Inactivated Comments 06/25/2020 8:24 AM 06/25/2020 3:59 PM Care Teams Carpet Repairer Relationship Specialty Start Date End Date Hayden Man MD [address] [place] [address] [address] [place] [address] PCP - General Internal Medicine 05/06/20 Maggy Swartz MD [address] [place] [address] Surgery, Neurosurgery 08/20/20
--- OUTSIDE RECORDS SUMMARY | 2025-09-11 11:41 | XMS_ITS | Encounter Summary ---
Author Organization [facility] Address [address] [place] [address] Care Team Providers Care Port Warden Name Role Phone Hayden Man MD Primary Care Provider [phone] Maggy Swartz MD Unavailable [phone] Encounter Details Date Type Department Care Team (Late st Contact Info) Description 12/16/2020 Scanned Document [facility] Neurosurgery [address] [place] [address] Bibi Maza PA Valid Address Needed Social [...] on filedocumented in this encounter Care Teams Port Warden Relationship Specialty Start Date End Date Hayden Man MD [address] [place] [address] [place] [address] PCP - General Internal Medicine 05/06/20 Maggy Swartz MD [address] [place] [address] Surgery, Neurosurgery 08/20/20 documented as of this encounter
--- OUTSIDE RECORDS SUMMARY | 2025-09-11 11:41 | XMS_ITS | Encounter Summary ---
Author Organization [facility] Address [address] [place] [address] Care Team Providers Care Physical Metallurgist Name Role Phone Hayden Man MD Primary Care Provider [phone] Maggy Swartz MD Unavailable [phone] Encounter Details Date Type Department Care Team (Late st Contact Info) Description 12/16/2020 Scanned Document [facility] Neurosurgery [address] [place] [address] Bibi Maza PA Valid Address Needed Social [...] on filedocumented in this encounter Care Teams Physical Metallurgist Relationship Specialty Start Date End Date Hayden Man MD [address] [place] [address] [place] [address] PCP - General Internal Medicine 05/06/20 Maggy Swartz MD [address] [place] [address] Surgery, Neurosurgery 08/20/20 documented as of this encounter
--- OUTSIDE RECORDS SUMMARY | 2025-09-11 11:41 | XMS_ITS | Encounter Summary ---
Author Organization [facility] Address [address] [place] [address] Care Team Providers Care Supervisor Area Name Role Phone Hayden Man MD Primary Care Provider [phone] Maggy Swartz MD Unavailable [phone] Encounter Details Date Type Department Care Team (Late st Contact Info) Description 03/24/2021 Scanned Document [facility] Neurosurgery [address] [address] Bibi Maza PA Valid Address [...] filedocumented in this encounter Care Teams Supervisor Area Relationship Specialty Start Date End Date Hayden Man MD [address] [place] [address] [place] [address] PCP - General Internal Medicine 05/06/20 Maggy Swartz MD [address] [place] [address] Surgery, Neurosurgery 08/20/20 documented as of this encounter
--- OUTSIDE RECORDS SUMMARY | 2025-09-11 11:41 | XMS_ITS | Encounter Summary ---
Author Organization [facility] Address [address] [place] [address] Care Team Providers Care Snow Fence Erector Name Role Phone Hayden Man MD Primary Care Provider [phone] Maggy Swartz MD Unavailable [phone] Encounter Details Date Type Department Care Team (Late st Contact Info) Description 09/11/2021 Scanned Document [facility] Neurosurgery [place] [address] [address] Maggy Swartz MD [address] [address] Social History Tobacco Use Types Packs/Day Years [...] on filedocumented in this encounter Care Teams Snow Fence Erector Relationship Specialty Start Date End Date Hayden Man MD [address] [place] [address] Dr Vo Vida AkersYOHANNES rogers [address] PCP - General Internal Medicine 05/06/20 Maggy Swartz MD [address] [place] [address] Surgery, Neurosurgery 08/20/20 documented as of this encounter
--- OUTSIDE RECORDS SUMMARY | 2025-09-11 11:41 | XMS_ITS | Encounter Summary ---
Author Organization [facility] Address [address] [place] [address] Care Team Providers Care Machine Gunner Name Role Phone Hayden Man MD Primary Care Provider [phone] Maggy Swartz MD Unavailable [phone] Encounter Details Date Type Department Care Team (Late st Contact Info) Description 02/02/2021 Scanned Document [facility] Neurosurgery [place] [address] [address] Maggy Swartz MD [address] [address] Social History Tobacco Use Types Packs/Day Years [...] filedocumented in this encounter Care Teams Machine Gunner Relationship Specialty Start Date End Date Hayden Man MD [address] [place] [address] Dr Vo Vida AkersYOHANNES rogers [address] PCP - General Internal Medicine 05/06/20 Maggy Swartz MD [address] [place] [address] Surgery, Neurosurgery 08/20/20 documented as of this encounter
--- OUTSIDE RECORDS SUMMARY | 2025-09-11 11:41 | XMS_ITS | Encounter Summary ---
Author Organization [facility] Address [address] [place] [address] Care Team Providers Care Whiskey Proof Reader Name Role Phone Hayden Man MD Primary Care Provider [phone] Maggy Swartz MD Unavailable [phone] Encounter Details Date Type Department Care Team (Late st Contact Info) Description 12/16/2020 Scanned Document [facility] Neurosurgery [address] [place] [address] Bibi Maza PA Valid Address Needed Social [...] on filedocumented in this encounter Care Teams Whiskey Proof Reader Relationship Specialty Start Date End Date Hayden Man MD [address] [place] [address] [place] [address] PCP - General Internal Medicine 05/06/20 Maggy Swartz MD [address] [place] [address] Surgery, Neurosurgery 08/20/20 documented as of this encounter
--- OUTSIDE RECORDS SUMMARY | 2025-09-11 11:41 | XMS_ITS | Encounter Summary ---
Author Organization [address] [address] Care Team Providers Care Commercial Technician Name Role Phone Hayden Man MD Primary Care Provider [phone] Maggy Swartz MD Unavailable [phone] Encounter Details Date Type Department Care Team (Late st Contact Info) Description 09/17/2020 Scanned Document [facility] Neurosurgery [place] 85 [facility] [address] [place] [address] Maggy Swartz MD 85 [facility] [place] [address] [place] [address] Social History Tobacco Use Types Packs/Day Years [...] on filedocumented in this encounter Care Teams Commercial Technician Relationship Specialty Start Date End Date Hayden Man MD [address] [place] [address] Dr Vo [address] [place] [address] PCP - General Internal Medicine 05/06/20 Maggy Swartz MD [address] [place] [address] Surgery, Neurosurgery 08/20/20 documented as of this encounter
--- OUTSIDE RECORDS SUMMARY | 2025-09-11 11:41 | XMS_ITS | Data Portability ---
Author Organization [place] - [facility], Allergy Address [address] [place] [address] Care Team Providers Care Ripsaw Operator Name Role Phone CHRISTIANE AVENDANO Referring Provider [phone] Assessment Encounter Date Assessment Date Assessment LastModified by Organization Details LastModified Time 09/02/2025 09/02/2025 The patient has nasal valve collapse, which is likely the primary cause of her bilateral nasal obstruction. Conservative measures, including Flonase and Afrin nasal sprays, have been attempted without significant improvement. Two surgical options were discussed with the patient. The first option involves septoplasty and turbinate reduction, which is a quicker procedure with easier recovery but may only provide partial improvement in nasal breathing. The second option is an open rhinoplasty, which involves fixing the septum and turbinates and reinforcing the nasal valve with cartilage grafts. This procedure offers the best functional outcome but requires a longer recovery period. The patient was advised to consult with Dr. Leblanc, for further evaluation and discussion of the advanced surgical option. If the patient prefers a quicker procedure with less recovery time, septoplasty and turbinate reduction can be performed by me. The patient was informed that neither surgery is urgent and that she has time to make an informed decision. The patient was educated on the nature of nasal valve collapse and the rationale behind the surgical options. She was encouraged to continue using Flonase daily if it provides any relief, as it is a safe long-term option. Follow-up with Dr. Leblanc was recommended for further consultation regarding the rhinoplasty procedure. [email or web address] Not available 09/02/2025 15:12:12 Plan of Treatment Reminders Order Date Submit Date Provider Last Modified By Organization Details Last Modified Time Details Appointments Establish ed 15 2025 10:30A M MASSIEL MOFFETT MD Not available Not available Not available Lab None recorded. Referral None recorded. Procedures None recorded. Surgeries None recorded. Imaging None recorded. Medication Orders None recorded. Patient TargetsNo targets recorded. Patient Instructions Encounter Date Encounter Id Patient Instructions Last Modified By Organization Details Last Modified Time 09/02/2025 [id number] - Continue using Flonase daily if it provides relief. - Schedule a consultation with Dr. Leblanc to discuss the rhinoplasty procedure. - Consider the surgical options and make an informed decision based on the provided information. [email or web address] Not available 09/02/2025 15:10:38 Please note: Parts of this encounter note have been generated by AI based on audio conversation. Patient consent was required prior to utilizing this technology. Content review was required prior to finalizing the note. [email or web address] Not available 09/02/2025 15:10:38 Reason for Referral None Reported. Problems Name Problem SNOMED Code Status Onset Date Resolution Date Notes Provider Name and Address Organization Details Recorded Time Incompetence of nasal valve 622025909 Active 2024 Otto Fonseca [address], [address], [facility] - [facility] 15:11:36 Nasal obstruction 993728835 Active 2024 Otto Fonseca [address], [address], [facility] - [facility] 15:11:41 Deviated nasal septum 881790346 Active 2024 Otto Fonseca [address], [address], [facility] 15:11:46 Hypertrophy of nasal turbinates 40129907 Active 2024 Otto Fonseca [address], [address], [facility] - [facility] 15:11:53 Problem Notes None recorded. Medical Equipment None Reported. Allergies No known drug allergies Medications Name Sig Start Date Stop Date Status Note LastModified by Organization Details LastModified Time gabapentin 600 mg tablet TAKE 3 TABLETS BY MOUTH TWICE DAILY active Not Available Not Available No t Available ibuprofen 800 mg tablet TAKE 1 TABLET BY MOUTH EVERY 8 HOURS NEEDED FOR PAIN active Not Available Not Available No t Available tramadol 50 mg tablet TAKE 1 TABLET BY MOUTH DAILY active Not Available Not Available No t Available amoxicillin 500 mg tablet TAKE 1 TABLET BY MOUTH EVERY 6 HOURS UNTIL GONE active Not Available Not Available N ot Available oxycodone-ochoa taminophen 5 mg-325 mg tablet TAKE 1 TABLET BY MOUTH EVERY 6 HOURS NEEDED FOR SEVERE PAIN active Not Available Not Available No t Available alprazolam 0.25 mg tablet TAKE 1 TABLET BY MOUTH DAILY active Not Available Not Available No t Available ibuprofen 600 mg tablet TAKE 1 TABLET BY MOUTH EVERY 8 HOURS NEEDED FOR PAIN active Not Available Not Available No t Available oxycodone 5 mg tablet TAKE 1 TABLET BY MOUTH EVERY 6 HOURS NEEDED FOR PAIN active Not Available Not Available No t Available duloxetine 30 mg capsule,delay ed release TAKE 3 CAPSULES BY MOUTH DAILY active Not Available Not Available No t Available Vitals Date Recorded Body height Body mass index (BMI) Body weight Provider Name and Address Organization Details Last Updated DateTime 09/02/2025 165.1 cm 28.3 kg/m2 08285.7 g Zulay Beltrán [place] - [facility] 09/02/2025 14:40:17 Social History Question Answer Notes LastModified by Organizat ion Details LastModified Time Tobacco Smoking Status Current Every Day Smoker Zulay duarte [place] - [facility] 09/02/2025 14:32:12 How Many Years Have You Consumed Alcohol? 43 [email or web address] Information not available 09/02/2025 What Type Of Analysis Manager Do You Use? None [email or web address] Information not available 09/02/2025 How Many Alcoholic Drinks Do You Consume Per Day On Average? 1 [email or web address] Information not available 09/02/2025 What Is Your Current Pack Years? 10-19pavineet s [email or web address] Information not available 09/02/2025 Do You Have Any Pets? No [email or web address] Information not available 09/02/2025 At What Age Did You Start Smoking Tobacco? 25 [email or web address] Information not available 09/02/2025 Are You Passively Exposed To Smoke? Yes [email or web address] Information not available 09/02/2025 Are There Any Smokers In Your House? No [email or web address] Information not available 09/02/2025 How Much Tobacco Do You Smoke? No [email or web address] Information not available 09/02/2025 How Many Years Have You Smoked Tobacco? 40 Information not available 09/02/2025 How Many Years Have You Used E-cigarettes Or Vape? 1 [email or web address] Information not available 09/02/2025 Sex: Unknown Functional Status Question Answer Note LastModified by Organizat ion Details LastModified Time How many times per week do you consume alcohol? 5-7 times per week [email or web address] Information not available 09/02/2025 Do you use any illicit or recreational drugs? No Information not available 09/02/2025 Do you or have you ever used any other forms of tobacco or nicotine? Yes Information not available 09/02/2025 What is your level of alcohol consumption? Occasional Information not available 09/02/2025 Do you or have you ever used smokeless tobacco? Never used smokeless tobacco [email or web address] Information not available 09/02/2025 Do you or have you ever used e-cigarettes or vape? Current user of electronic cigarettes [email or web address] Information not available 09/02/2025 What type of noise exposure are you exposed to? Other [email or web address] Information not available 09/02/2025 Mental Status None recorded. Family History Nothing Reported. Medical History Condition Response Allergies/Hayfever N Heart Problems N Anxiety Y Tonsil Infections N Emphysema N Migraines N Thyroid Problems Y COPD N Depression N Developmental Delay N Glaucoma N Nasal or Sinus Problems Y Anemia Y Immune System Disorder N Anesthesia Complications N Heart Attack ([place]) N Other Skin Condition Y Diabetes N Rhinitis N Bleeding Disorder N Food Allergy N Hearing Loss Y Arthritis Y Hyperlipidemia N Cancer Y Stroke N Dementia N Nasal polyps N Asthma N Sleep Disorder N High Cholesterol N GERD/Reflux N Liver Disease N Headaches N Fibromyalgia N Hypertension N Speech Delay N Kidney Disease N Gynecological HistoryNo gynecological history recorded. Obstetrics History GPAL:G 0 P 0 0 0 0 Past Encounters Encounter ID Performer Location Encounter Start Date Encounter Closed Date Diagnosis/Indication Diagnosis SNOMED-CT Code Diagnosis ICD10 Code Diagnosis IMO Codes Diagnosis Note [id number] Otto Fonseca DO [facility] [address] [address] 09/02/2025 14:10:12 09/02/2025 15:11:16 Incompetence of nasal valve 593958182 J34.927 2007014 Nasal obstruction 704845 000 J34.89 [address]803 Deviated nasal septum 12 7353719 J34.2 599895 Hypertroph y of nasal turbinates 97392328 J34.3 014406 Health Concerns Section Related Observation LastModified by Organization Detai ls LastModified Time None Recorded Concern Status LastModified by Organization Details LastModified Time None Recorded Advance Directives Directive None Recorded Payers Encounter Date Sequence Insurance Name Policy Number Policy Crystal Covered Member ID Crystal Member ID Guarantor Name 09/02/2025 1 [place]IC[place] B-[place]: [employer] Claudia Villela [id number] Claudia Navarretedeion 09/02/2025 2 [place] [facility] Claudia Navarretedeion [id number] Claudia Villela Notes Date Note Type Note Provider Name and Address Organization Details Recorded Time 09/02/2025 text/html Claudia Villela is a 65-year-old female who presents for bilateral nasal obstruction. She reports difficulty breathing through her nose on both sides, which occurs daily and persists throughout the day. She has tried Flonase and Afrin nasal sprays in the past but experienced no significant improvement. She notes that Afrin provided temporary relief but worsened her symptoms with prolonged use. She denies changes in her sense of smell or taste, facial pressure, or pain. No other associated symptoms were reported. Otto Fonseca, DO [address], [address], [facility] - [facility] 09/02/2025 15:12:20 OBGyn Episode No OBEpisode recorded.
--- OUTSIDE RECORDS SUMMARY | 2025-09-11 11:41 | XMS_ITS | Encounter Summary ---
Author Organization [address] [address] Care Team Providers Care Metal Or Wood Blocker Name Role Phone Hayden Man MD Primary Care Provider [phone] Maggy Swartz MD Unavailable [phone] Encounter Details Date Type Department Care Team (Late st Contact Info) Description 08/22/2020 Scanned Document [facility] [place] 85 [facility] [address] [place] [address] Maggy Swartz MD 85 [facility] [place] [address] [place] [address] Social History Tobacco Use Types Packs/Day Years [...] filedocumented in this encounter Care Teams Metal Or Wood Blocker Relationship Specialty Start Date End Date Hayden Man MD [address] [place] [address] Dr Vo [address] [place] [address] PCP - General Internal Medicine 05/06/20 Maggy Swartz MD [address] [place] [address] Surgery, Neurosurgery 08/20/20 documented as of this encounter
--- OUTSIDE RECORDS SUMMARY | 2025-09-11 11:41 | XMS_ITS | Clinical Summary ---
Author Organization [facility] Address [address] [place] [address] Phone Care Team Providers Care Customer Experience Strategist Name Role Phone Po, Hayden Mckeon MD Primary Care Provider [phone] Allergies No known active allergies Medications LEVOTHYROXINE SODIUM (LEVOTHYROXINE ORAL) Take 88 mcg by mouth. Active CYANOCOBALAMIN, VITAMIN B-12, (VITAMIN B-12 ORAL) Take by mouth. Active MAGNESIUM ORAL Take by mouth. Active gabapentin (NEURONTIN) 600 MG tablet Take 600 mg by mouth 4 (four) times a day as needed. Active ferrous sulfate 325 mg (65 mg navajo iron) tablet Take 325 mg by mouth [...] patient's age to complete this topic IPV VACCINES Aged Out No longer eligi ble based on patient's age to complete this topic MENINGOCOCCAL VACCINES (ACWY) Aged Out No longer eligible based on patient's age to complete this topic MENINGOCOCCAL VACCINES (B) Aged Out N o longer eligible based on patient's age to complete this topic Medical Devices Not on file Insurance [facility] MEDICARE PART A & B [facility] MEDICARE PART A & B [place] MEDICARE PART A & B Member Subscriber Plan / Payer (Ef fective 2022-) Name:Delvin Aden Member ID:[id number] Relation to Subscriber:Self Name:Delvin Aden Subscriber ID:[id number] Payer ID:[id number] Group ID:Not on file Type:Medicare Address: [employer] [address] [address] [place] [address] MEDICARE PART A & B [place] PART [place] PART A & B Member Subscriber Plan / Payer (Ef fective 2022-) Name:Tika Delvin Member ID:[id number] Relation to Subscriber:Self Name:Delvin Aden Subscriber ID:[id number] Payer ID:[id number] Group ID:Not on file Type:Medicare Address: [facility] [id number] [facility] [address] [place] [address] [facility] Care Teams Customer Experience Strategist Relationship Specialty Start Date End Date Hayden Man MD [address] [place] [address] Drive [address] [place] [address] PCP - General Internal Medicine 07/18/17 Additional Source Comments The information contained in this document represents components of the legal health record. It is not the complete legal health record.[facility]
--- OUTSIDE RECORDS SUMMARY | 2025-09-11 11:41 | XMS_ITS | Encounter Summary ---
Author Organization [facility] Address [address] [place] [address] Phone Care Team Providers Care Pipelines Supervisor Name Role Phone Hayden Man MD Primary Care Provider [phone] Encounter Details Date Type Department Care Team (Late st Contact Info) Description 10/13/2023 Procedure Pass [facility], [facility] [address] [place] [address] Social History Tobacco Use Types Packs/Day Years [...] on filedocumented in this encounter Care Teams Pipelines Supervisor Relationship Specialty Start Date End Date Hayden Man MD [address] [place] [address] [place] [address] PCP - General Internal Medicine 07/18/17 documented as of this encounter Additional Source Comments The information contained in this document represents components of the legal health record. It is not the complete legal health record.[facility]
--- OUTSIDE RECORDS SUMMARY | 2025-09-11 11:41 | XMS_ITS | Clinical Summary ---
Author Organization [facility] it Address [address] [place] [address] Care Team Providers Care Gold Stamper Name Role Phone Unavailable Primary Care Provider [...] Info) Description 11/19/2025 1:00 PM EST Appointment [facility] Xray [address] [place] [address] Health Maintenance Due Date Last Done Comments Breast Cancer Screening 1962 Colorectal Cancer Screening: Colonoscopy 1962 DTaP,Tdap,and Td Vaccines (1 - Tdap) 1981 Cervical Cancer Screening: P ap Smear 1983 Pneumococcal Vaccine: 50+ Ye ars (1 of 1 - PCV) 2012 Zoster Vaccines (1 of 2) 2012 Depression Screening 10/31/2024 COVID-19 Vaccine (1 - 2024-2 6 season) 2025 Influenza Vaccine (#1) 2025 HIV [...]
--- OUTSIDE RECORDS SUMMARY | 2025-09-11 11:41 | XMS_ITS | Continuity of Care Document ---
Author Organization [place] - [facility], [facility] Address [address] [place] [address] Care Team Providers Care Gambling Box Person Name Role Phone CHRISTIANE AVENDANO Referring Provider Assessment Encounter Date Assessment Date Assessment LastModified [...] By Organization Details Last Modified Time 09/02/2025 [id number] - Continue using Flonase daily if it [...] Details Recorded Time Incompetence of nasal valve 139862319 Active 2024 Otto Fonseca [address], [address], [facility] - [facility] 15:11:36 Nasal obstruction 885381741 Active 2024 Otto Fonseca [place] [address], [place], [address], [facility] - [facility] 15:11:41 Deviated nasal septum 997066993 Active 2024 Otto Fonseca [place] [address], [place], [address], [facility] - [facility] 15:11:46 Hypertrophy of nasal turbinates 08683893 Active 2024 Otto Fonseca [place] [address], [place], [address], [facility] - [facility] 15:11:53 Problem Notes None recorded. Medical [...] Updated DateTime 09/02/2025 165.1 cm 28.3 kg/m2 [address]2688.7 g Zulay Beltrán [place] - [facility] 09/02/2025 14:40:17 Social History Question Answer Notes LastModified by Organizat ion Details LastModified Time Tobacco Smoking Status Current Every Day Smoker Zulay duarte [place] - [facility] 09/02/2025 14:32:12 How Many Years Have You Consumed Alcohol? 43 [email or web address] Information not available 09/02/2025 What Type Of Service Center Coordinator Do You Use? None [email or web address] Information not available 09/02/2025 How Many Alcoholic Drinks Do You Consume Per Day On Average? 1 [email or web address] Information not available 09/02/2025 What Is Your Current Pack Years? 10-19packyear s [email or web address] Information not available 09/02/2025 Do You Have Any Pets? No [email or web address] Information not available 09/02/2025 At What Age Did You Start Smoking Tobacco? 25 [email or web address] Information not available 09/02/2025 Are You Passively Exposed To Smoke? Yes [email or web address] Information not available 09/02/2025 Are There Any Smokers In Your House? No [email or web address] Information not available 09/02/2025 How Much Tobacco Do You Smoke? No [email or web address] Information not available 09/02/2025 How Many Years Have You Smoked Tobacco? 40 [email or web address] Information not available 09/02/2025 How Many Years Have You Used E-cigarettes Or Vape? 1 Information not available 09/02/2025 Sex: Unknown Functional Status Question Answer Note LastModified by Organizat ion Details LastModified Time How many times per week do you consume alcohol? 5-7 times per week [email or web address] Information not available 09/02/2025 Do you use any illicit or recreational drugs? No [email or web address] Information not available 09/02/2025 Do you or have you ever used any other forms of tobacco or nicotine? Yes [email or web address] Information not available 09/02/2025 What is your level of alcohol consumption? Occasional [email or web address] Information not available 09/02/2025 Do you or have you ever used smokeless tobacco? Never used smokeless tobacco [email or web address] Information not available 09/02/2025 Do you or have you ever used e-cigarettes or vape? Current user of electronic cigarettes [email or web address] Information not available 09/02/2025 What type of noise exposure are you exposed to? Other Information not available 09/02/2025 Mental Status None recorded. Family History Nothing Reported. Medical History Condition Response Allergies/Hayfever N Heart Problems N Anxiety Y Tonsil Infections N Emphysema N Migraines N Thyroid Problems Y COPD N Depression N Developmental Delay N Glaucoma N Nasal or Sinus Problems Y Anemia Y Immune System Disorder N Anesthesia Complications N Heart Attack ([place]) N Other Skin Condition Y Diabetes N [...] ICD10 Code Diagnosis IMO Codes Diagnosis Note [id number] Otto Fonseca, DO [facility] [address] [place] [address] 09/02/2025 14:10:12 09/02/2025 15:11:16 Incompetence of nasal valve 076773140 J34.944 0443398 Nasal obstruction 005463 000 J34.89 [address]11 Deviated nasal septum 12 0839683 J34.2 055955 Hypertroph y of nasal turbinates 79295716 J34.3 526556 Health Concerns Section Related Observation LastModified by Organization Detai ls LastModified Time None Recorded Concern Status LastModified by Organization Details LastModified Time None Recorded Payers Encounter Date Sequence Insurance Name Policy Number Policy Crystal Covered Member ID Crystal Member ID Guarantor Name 09/02/2025 1 [place]IC[place] [employer] Claudia Villela [id number] Claudia Navarretedeion 09/02/2025 2 MED[place]ID[place]: [facility] Claudia Navarretedeion [id number] Claudia Villela Notes Date Note Type Note [...] No other associated symptoms were reported. Otto Fonseca DO [address] [place] [address], [address], [facility] - [facility] 09/02/2025 15:12:20 OBGyn Episode No OBEpisode recorded.
--- OUTSIDE RECORDS SUMMARY | 2025-09-11 11:41 | XMS_ITS | Encounter Summary ---
Author Organization [facility] Address [address] [place] [address] Care Team Providers Care Veneer Production Machine Operator Name Role Phone Hayden Man MD Primary Care Provider [phone] Maggy Swartz MD Unavailable [phone] Encounter Details Date Type Department Care Team (Late st Contact Info) Description 02/02/[address] [facility] Neurosurgery [place] [address] [address] Maggy Swartz MD [address] [address] Social History Tobacco Use Types Packs/Day Years [...] on filedocumented in this encounter Care Teams Veneer Production Machine Operator Relationship Specialty Start Date End Date Hayden Man MD [address] [place] [address] Dr Vo Vida AkersYOHANNES rogers [address] PCP - General Internal Medicine 05/06/20 Maggy Swartz MD [address] [place] [address] Surgery, Neurosurgery 08/20/20 documented as of this encounter
== END 2025-09-11 10:43 | disposition home or self-care (01) ==
LOC: HO.HMCH 09:58
PROVIDERS: PCP Internal Medicine; Visit Provider Internal Medicine
DX: I95.1 Orthostatic hypotension (principal); E03.9 Hypothyroidism, unspecified; E66.3 Overweight; F41.1 Generalized anxiety disorder; S52.532A Colles' fracture of left radius, initial encounter for closed fracture; G90.522 Complex regional pain syndrome I of left lower limb; Z72.0 Tobacco use; R55 Syncope and collapse; S09.90XA Unspecified injury of head, initial encounter

== ENCOUNTER → 2025-09-11 09:57 | Outpatient (BNVA) | payer OTHER, MEDICARE, MEDICAID, SELFPAY | PROVIDERS: PCP Internal Medicine; Visit Provider Internal Medicine | DX: I95.1 Orthostatic hypotension (principal); E03.9 Hypothyroidism, unspecified; E66.3 Overweight; F41.1 Generalized anxiety disorder; S52.532K Colles' fracture of left radius, subsequent encounter for closed fracture with nonunion; G90.522 Complex regional pain syndrome I of left lower limb; M96.1 Postlaminectomy syndrome, not elsewhere classified; X58.XXXD Exposure to other specified factors, subsequent encounter; Z87.828 Personal history of other (healed) physical injury and trauma; Z87.891 Personal history of nicotine dependence | CPT/HCPCS: 99212 ==

== ENCOUNTER 2025-09-27 08:09 | Outpatient (REF) | payer MEDICARE, MEDICAID, SELFPAY ==
--- NOTE | ~2025-09-27 | CT_ITS ---
EXAMINATION: CT HEAD WITHOUT CONTRAST CLINICAL INFORMATION: Unspecified injury of the head, initial encounter. COMPARISON: 01/12/2025. TECHNIQUE: Contiguous axial imaging was performed from the skull base to vertex without intravenous administration of contrast. This CT examination was performed using dose optimization techniques as appropriate, variously including the following: *Automated exposure control *Adjustment of mA and/or kV according to patient size (this includes techniques or standardized protocols for targeted exams where dose is matched to indication/reason for exam; i.e. extremities or head) *Use of iterative reconstruction technique FINDINGS: There is no evidence of intracranial hemorrhage or extra-axial fluid collection. There is no mass effect, or edema. No CT evidence of acute territorial infarct. Ventricles, sulci, and cisterns are normal in size and configuration for patient age. No hydrocephalus. No midline shift. Negative hyperdense MCA sign. Negative insular ribbon sign. Patchy periventricular and deep white matter hypoattenuation is consistent with very mild small vessel ischemic changes. Partial empty sella present. Mild atheromatous calcification of the bilateral carotid siphons and V4 segments vertebral arteries bilaterally. Globes and orbital contents image normally. No extracranial soft tissue abnormalities. The paranasal sinuses, mastoid air cells, and tympanic cavities are normally aerated. No suspicious bony abnormalities. There are no acute fractures evident. CT/CT head/brain wo IV con IMPRESSION: No acute intracranial abnormality. No acute fracture evident. Electronically signed by: Everton Arora MD 09/27/2025 09:[address] [facility]
--- OUTSIDE RECORDS SUMMARY | 2025-09-27 08:11 | XMS_ITS | Encounter Summary ---
Author Organization [facility] Address [address] [place] [address] Care Team Providers Care Manager Utility Name Role Phone Hayden Man MD Primary Care Provider [phone] Maggy Swartz MD Unavailable [phone] Encounter Details Date Type Department Care Team (Late st Contact Info) Description 12/16/2020 Scanned Document [facility] Neurosurgery [address] [place] [address] Bibi Maza PA Valid Address Needed Social [...] filedocumented in this encounter Care Teams Manager Utility Relationship Specialty Start Date End Date Hayden Man MD [address] [place] [address] [place] [address] PCP - General Internal Medicine 05/06/20 Maggy Swartz MD [address] [place] [address] Surgery, Neurosurgery 08/20/20 documented as of this encounter
--- OUTSIDE RECORDS SUMMARY | 2025-09-27 08:11 | XMS_ITS | Clinical Summary ---
Author Organization [facility] it Address [address] [place] [address] Care Team Providers Care Senior Corporate Accountant Name Role Phone Unavailable Primary Care Provider [...] Info) Description 11/19/2025 1:00 PM EST Appointment [facility] Xray [address] [place] [address] Health Maintenance Due Date Last [...]
--- OUTSIDE RECORDS SUMMARY | 2025-09-27 08:11 | XMS_ITS | Encounter Summary ---
Author Organization [facility] Address [address] [place] [address] Care Team Providers Care Damper Worker Name Role Phone Hayden Man MD Primary Care Provider [phone] Maggy Swartz MD Unavailable [phone] Encounter Details Date Type Department Care Team (Late st Contact Info) Description 03/24/2021 Scanned Document [facility] Neurosurgery [address] [address] Bibi Maza PA Valid Address [...] on filedocumented in this encounter Care Teams Damper Worker Relationship Specialty Start Date End Date Hayden Man MD [address] [place] [address] [place] [address] PCP - General Internal Medicine 05/06/20 Maggy Swartz MD [address] [place] [address] Surgery, Neurosurgery 08/20/20 documented as of this encounter
--- OUTSIDE RECORDS SUMMARY | 2025-09-27 08:11 | XMS_ITS | Encounter Summary ---
Author Organization [facility] Address [address] [place] [address] Care Team Providers Care Soft Work Cigar Machine Operator Name Role Phone Hayden Man MD Primary Care Provider [phone] Maggy Swartz MD Unavailable [phone] Encounter Details Date Type Department Care Team (Late st Contact Info) Description 07/22/2021 Scanned Document [facility] Neurosurgery [place] [address] [address] Maggy Swartz MD [address] [address] Social History Tobacco Use Types Packs/Day Years [...] on filedocumented in this encounter Care Teams Soft Work Cigar Machine Operator Relationship Specialty Start Date End Date Hayden Man MD [address] [place] [address] [place] [address] PCP - General Internal Medicine 05/06/20 Maggy Swartz MD [address] [place] [address] Surgery, Neurosurgery 08/20/20 documented as of this encounter
--- OUTSIDE RECORDS SUMMARY | 2025-09-27 08:11 | XMS_ITS | Encounter Summary ---
Author Organization [facility] Address [address] [place] [address] Care Team Providers Care Tile Roofer Name Role Phone Hayden Man MD Primary Care Provider [phone] Maggy Swartz MD Unavailable [phone] Encounter Details Date Type Department Care Team (Late st Contact Info) Description 02/02/2021 Scanned Document [facility] Neurosurgery [place] [address] [address] Maggy Swartz MD [address] [address] Social History Tobacco Use Types Packs/Day Years [...] on filedocumented in this encounter Care Teams Tile Roofer Relationship Specialty Start Date End Date Hayden Man MD [address] [place] [address] Dr Vo Vida AkersYOHANNES rogers [address] PCP - General Internal Medicine 05/06/20 Maggy Swartz MD [address] [place] [address] Surgery, Neurosurgery 08/20/20 documented as of this encounter
--- OUTSIDE RECORDS SUMMARY | 2025-09-27 08:11 | XMS_ITS | Encounter Summary ---
Author Organization [facility] Address [address] [place] [address] Care Team Providers Care Catch Basin Cleaner Name Role Phone Hayden Man MD Primary Care Provider [phone] Maggy Swartz MD Unavailable [phone] Encounter Details Date Type Department Care Team (Late st Contact Info) Description 02/02/2021 Scanned Document [facility] Neurosurgery [place] [address] [address] Maggy Swartz MD [address] [address] Social History Tobacco Use Types Packs/Day Years [...] on filedocumented in this encounter Care Teams Catch Basin Cleaner Relationship Specialty Start Date End Date Hayden Man MD [address] [place] [address] Dr Vo Vida AkersYOHANNES rogers [address] PCP - General Internal Medicine 05/06/20 Maggy Swartz MD [address] [place] [address] Surgery, Neurosurgery 08/20/20 documented as of this encounter
--- OUTSIDE RECORDS SUMMARY | 2025-09-27 08:11 | XMS_ITS | Encounter Summary ---
Author Organization [facility] Address [address] [place] [address] Care Team Providers Care Die Set Up Worker Name Role Phone Hayden Man MD Primary Care Provider [phone] Maggy Swartz MD Unavailable [phone] Encounter Details Date Type Department Care Team (Late st Contact Info) Description 09/11/2021 Scanned Document [facility] Neurosurgery [place] [address] [address] Maggy Swartz MD [address] [address] Social History Tobacco Use Types Packs/Day Years [...] on filedocumented in this encounter Care Teams Die Set Up Worker Relationship Specialty Start Date End Date Hayden Man MD [address] [place] [address] [place] [address] PCP - General Internal Medicine 05/06/20 Maggy Swartz MD [address] [place] [address] Surgery, Neurosurgery 08/20/20 documented as of this encounter
--- OUTSIDE RECORDS SUMMARY | 2025-09-27 08:11 | XMS_ITS | Encounter Summary ---
Author Organization [facility] Address [address] [place] [address] Phone Care Team Providers Care Biomass Plant Technician Name Role Phone Hayden Man MD Primary Care Provider [phone] Encounter Details Date Type Department Care Team (Late st Contact Info) Description 10/13/2023 Procedure Pass [facility], [facility] [address] [place] [address] Social History Tobacco Use Types Packs/Day Years [...] on filedocumented in this encounter Care Teams Biomass Plant Technician Relationship Specialty Start Date End Date Hayden Man MD [address] [place] [address] [place] [address] PCP - General Internal Medicine 07/18/17 documented as of this encounter Additional Source Comments The information contained in this document represents components of the legal health record. It is not the complete legal health record.[facility]
--- OUTSIDE RECORDS SUMMARY | 2025-09-27 08:11 | XMS_ITS | Encounter Summary ---
Author Organization [facility] Address [address] [place] [address] Care Team Providers Care Insurance Policy Clerk Name Role Phone Hayden Man MD Primary Care Provider [phone] Maggy Swartz MD Unavailable [phone] Encounter Details Date Type Department Care Team (Late st Contact Info) Description 12/16/2020 Scanned Document [facility] Neurosurgery [address] [place] [address] Bibi Maza PA Valid Address Needed Social [...] on filedocumented in this encounter Care Teams Insurance Policy Clerk Relationship Specialty Start Date End Date Hayden Man MD [address] [place] [address] [place] [address] PCP - General Internal Medicine 05/06/20 Maggy Swartz MD [address] [place] [address] Surgery, Neurosurgery 08/20/20 documented as of this encounter
--- OUTSIDE RECORDS SUMMARY | 2025-09-27 08:12 | XMS_ITS | Encounter Summary ---
Author Organization [address] [place] [address] [address] Care Team Providers Care Director Of Cardiology Service Line Name Role Phone Hayden Man MD Primary Care Provider [phone] Maggy Swartz MD Unavailable [phone] Encounter Details Date Type Department Care Team (Late st Contact Info) Description 08/22/2020 Scanned Document [facility] Neurosurgery [place] 85 [facility] [address] [place] [address] Maggy Swartz MD 85 [facility] [address] [place] [address] Social History Tobacco Use Types Packs/Day Years [...] in this encounter Care Teams Director Of Cardiology Service Line Relationship Specialty Start Date End Date Hayden Man MD [address] [place] [address] Dr [address] [place] [address] PCP - General Internal Medicine 05/06/20 Maggy Swartz MD [address] [place] [address] Surgery, Neurosurgery 08/20/20 documented as of this encounter
--- OUTSIDE RECORDS SUMMARY | 2025-09-27 08:12 | XMS_ITS | Clinical Summary ---
Author Organization [facility] Address [address] [place] [address] Care Team Providers Care Revival Clerk Name Role Phone Hayden Man MD Primary Care Provider [phone] Maggy Swartz MD Unavailable [phone] Allergies No known active allergies Medications [...] this topic Medical Devices Implanted Type Area System Dispatcher Device Identifier Shelf Expiration Date Model / Serial / Lot [id number] Spacer Spinal [id number] Cpstn Peek Ptc Lmbr Intrbd Fs Sterl - [id number] Implanted:Qty: 1 on 09/08/2020 by Maggy Swartz MD at [facility] Cage N/A: Spine Lumbar [employer] 10/20/2026 [id number] / / [id number] Ashok Spinal 70mm 5.5mm Cd Hzn Crv Ti Cp4 Nonst - [id number] Implanted:Qty: 2 on 09/08/2020 by Maggy Swartz MD at [facility] Nail/Ashok N/A: Spine Lumbar [employer] [id number] / / [id number] Screw Bone Spine Solera Cd Hzn 40mm Cocr 5.5mm Ma Nonst 5.5 - [id number] Implanted:Qty: 2 on 09/08/2020 by Maggy Swartz MD at [facility] Spine N/A: Spine Lumbar [employer] [id number] / / [id number] Screw Bone Spine Cd Hzn Solera 45mm Ti Cocr 5.5mm Ma Nonst - [id number] Implanted:Qty: 4 on 09/08/2020 by Maggy Swartz MD at [facility] Spine N/A: Spine Lumbar [employer] [id number] / / [id number] Screw Set Ti Spine Brk Off Cd Hzn Nonst 5.5 Mm Ashok - [id number] Implanted:Qty: 6 on 09/08/2020 by Maggy Swartz MD at [facility] Spine N/A: Spine Lumbar [employer] [id number] / / [id number] Filler Bone Void 10cc Dbx Algrf Frzdr Putty - [id number] Implanted:Qty: 1 on 09/08/2020 by Maggy Swartz MD at [facility] Void Filler N/A: Spine Lumbar [employer] 03/19/2022 [id number] / [id number] / [id number] Filler Bone Void 10cc Dbx Algrf Frzdr Putty - [id number] Implanted:Qty: 1 on 09/08/2020 by Maggy Swartz MD at [facility] Void Filler N/A: Spine Lumbar [employer] 12/13/2021 [id number] / [id number] Filler Bone Void 10cc Dbx Algrf Frzdr Putty - [id number] Implanted:Qty: 1 on 09/08/2020 by Maggy Swartz MD at [facility] Void Filler N/A: Spine Lumbar [employer] 03/19/2022 [id number] / [id number] / Insurance [facility] Advance Directives * Full Code (Latest Code Status on File) Date Activated Date Inactivated Comments 09/08/2020 8:09 PM * Full Code Date Activated Date Inactivated Comments 09/08/2020 9:46 AM 09/08/2020 8:09 PM * Full Code Date Activated Date Inactivated Comments 06/25/2020 3:59 PM 09/08/2020 9:10 AM * Full Code Date Activated Date Inactivated Comments 06/25/2020 8:24 AM 06/25/2020 3:59 PM Care Teams Revival Clerk Relationship Specialty Start Date End Date Hayden Man MD [address] [place] [address] Dr Vo [address] [place] [address] PCP - General Internal Medicine 05/06/20 Maggy Swartz MD [address] [place] [address] Surgery, Neurosurgery 08/20/20
--- OUTSIDE RECORDS SUMMARY | 2025-09-27 08:12 | XMS_ITS | Clinical Summary ---
Author Organization [facility] Address [address] [place] [address] Phone Care Team Providers Care Private Banker Name Role Phone Po, Hayden Mckeon MD Primary Care Provider [phone] Allergies No known active allergies Medications LEVOTHYROXINE SODIUM (LEVOTHYROXINE ORAL) Take 88 mcg by mouth. Active CYANOCOBALAMIN, VITAMIN B-12, (VITAMIN B-12 ORAL) Take by mouth. Active MAGNESIUM ORAL Take by mouth. Active gabapentin (NEURONTIN) 600 MG tablet Take 600 mg by mouth 4 (four) times a day as needed. Active ferrous sulfate 325 mg (65 mg mcgrath iron) tablet Take 325 mg by mouth [...] topic Medical Devices Not on file Insurance [employer] MEDICARE PART A & [facility] [place] [address] MED[place]ARE PART A & B [place] [address] MED[place]ARE PART A & [place] PART A & B [employer] [facility] Health Care [facility] Address: [address] [address] [place] [address] Care Teams Private Banker Relationship Specialty Start Date End Date Hayden Man MD [address] [place] [address] PCP - General Internal Medicine 07/18/17 Additional Source Comments The information contained in this document represents components of the legal health record. It is not the complete legal health record.[facility]
--- OUTSIDE RECORDS SUMMARY | 2025-09-27 08:12 | XMS_ITS | Data Portability ---
Author Organization [place] [facility] Allergy Address [address] [place] [address] Care Team Providers Care Flat Folder Name Role Phone CHRISTIANE AVENDANO Referring Provider [...] By Organization Details Last Modified Time 09/02/2025 [address] - Continue using Flonase daily if it [...] Details Recorded Time Incompetence of nasal valve 433384412 Active 2024 [address]on[address]a [address], [address], [facility] - [facility] 15:11:36 Nasal obstruction 889720584 Active 2024 Otto Fonseca [address], [address], [facility] - [facility] 15:11:41 Deviated nasal septum 569032725 Active 2024 Otto Fonseca [address], [address], [facility] 15:11:46 Hypertrophy of nasal turbinates 54276561 Active 2024 Otto Fonseca [address], [address], [facility] - [facility] 15:11:53 Problem Notes None recorded. Medical [...] Updated DateTime 09/02/2025 165.1 cm 28.3 kg/m2 07048.7 g Zulay Beltrán [place] - [facility] 09/02/2025 14:40:17 Social History Question Answer Notes LastModified by Organizat ion Details LastModified Time Tobacco Smoking Status Current Every Day Smoker Zulay duarte [place] - [facility] 09/02/2025 14:32:12 How Many Years Have You Consumed Alcohol? 43 [email or web address] Information not available 09/02/2025 What Type Of C D Reactor Operator Do You Use? None [email or web address] Information not available 09/02/2025 How Many Alcoholic Drinks Do You Consume Per Day On Average? 1 Information not available 09/02/2025 What Is Your Current Pack Years? 10-19pavineet s [email or web address] Information not available 09/02/2025 Do You Have Any Pets? No [email or web address] Information not available 09/02/2025 At What Age Did You Start Smoking Tobacco? 25 [email or web address] Information not available 09/02/2025 Are You Passively Exposed To Smoke? Yes [email or web address] Information not available 09/02/2025 Are There Any Smokers In Your House? No [email or web address] Information not available 09/02/2025 How Much Tobacco Do You Smoke? No [email or web address] Information not available 09/02/2025 How Many Years Have You Smoked Tobacco? 40 [email or web address] Information not available 09/02/2025 How Many Years Have You Used E-cigarettes Or Vape? 1 [email or web address] Information not available 09/02/2025 Sex: Unknown Functional Status Question Answer Note LastModified by Organizat ion Details LastModified Time How many times per week do you consume alcohol? 5-7 times per week [email or web address] Information not available 09/02/2025 Do you use any illicit or recreational drugs? No [email or web address] Information not available 09/02/2025 Do you or have you ever used any other forms of tobacco or nicotine? Yes [email or web address] Information not available 09/02/2025 What is your level of alcohol consumption? Occasional [email or web address] Information not available 09/02/2025 Do you or have you ever used smokeless tobacco? Never used smokeless tobacco [email or web address] Information not available 09/02/2025 Do you or have you ever used e-cigarettes or vape? Current user of electronic cigarettes [email or web address] Information not available 09/02/2025 What type of noise exposure are you exposed to? Other [email or web address] Information not available 09/02/2025 Mental Status None recorded. Family History Nothing Reported. Medical History Condition Response Tonsil Infections N Emphysema N Glaucoma N Depression N COPD N Nasal or Sinus Problems Y Anesthesia Complications N Arthritis Y Hearing Loss Y Cancer Y Stroke N High Cholesterol N Liver Disease N Headaches N Fibromyalgia N Speech Delay N Kidney Disease N Allergies/Hayfever N Heart Problems N Anxiety Y Migraines N Thyroid Problems Y Developmental Delay N Anemia Y Immune System Disorder N Heart Attack (ME) N Other Skin Condition Y Diabetes N Rhinitis N Bleeding Disorder N Food Allergy N Hyperlipidemia N Dementia N Nasal polyps N Asthma N Sleep Disorder N GERD/Reflux N Hypertension N Gynecological HistoryNo gynecological history recorded. Obstetrics History GPAL:G 0 P 0 0 0 0 Past Encounters Encounter ID Performer Location Encounter Start Date Encounter Closed Date Diagnosis/Indication Diagnosis SNOMED-CT Code Diagnosis ICD10 Code Diagnosis IMO Codes Diagnosis Note [id number] Otto Fonseca DO [facility] [address] [address] 09/02/2025 14:10:12 09/02/2025 15:11:16 Incompetence of nasal valve 770061100 J34.592 7542039 Nasal obstruction 337119 000 J34.89 63492 Deviated nasal septum 12 9819874 J34.2 790384 Hypertroph y of nasal turbinates 98993811 J34.3 631195 Health Concerns Section Related Observation LastModified by Organization Detai ls LastModified Time None Recorded Concern Status LastModified by Organization Details LastModified Time None Recorded Advance Directives Directive None Recorded Payers Insurance Date Sequence Insurance Name Policy Number Policy Crystal Covered Member ID Crystal Member ID Guarantor Name 09/02/2025 1 [place] [employer] Claudia Villela [id number] lCaudia Navarretedeion 09/02/2025 2 [place] [facility] Claudia Navarretedeion [id number] Claudia Villela Notes Date Note Type Note [...] symptoms were reported. Otto Fonseca, DO [address], [address], [facility] - [facility] 09/02/2025 15:12:20 OBGyn Episode No OBEpisode recorded.
--- OUTSIDE RECORDS SUMMARY | 2025-09-27 08:12 | XMS_ITS | Encounter Summary ---
Author Organization [address] [address] Care Team Providers Care Repairer Typewriter Name Role Phone Hayden Man MD Primary Care Provider [phone] Maggy Swartz MD Unavailable [phone] Encounter Details Date Type Department Care Team (Late st Contact Info) Description 09/17/2020 Scanned Document [facility] Neurosurgery [place] 85 [facility] [address] [place] [address] Maggy Swartz MD 85 [facility] [place] [address] [place] [address] Social History Tobacco Use Types Packs/Day Years [...] on filedocumented in this encounter Care Teams Repairer Typewriter Relationship Specialty Start Date End Date Hayden Man MD [address] [place] [address] Dr [address] [place] [address] PCP - General Internal Medicine 05/06/20 Maggy Swartz MD [address] [place] [address] Surgery, Neurosurgery 08/20/20 documented as of this encounter
--- OUTSIDE RECORDS SUMMARY | 2025-09-27 08:12 | XMS_ITS | Continuity of Care Document ---
Author Organization [place] - [facility], [facility] Address [address] [place] [phone] Care Team Providers Care Hydraulic Rubbish Compactor Mechanic Name Role Phone CHRISTIANE AVENDANO Referring Provider [phone] Assessment Encounter Date Assessment Date Assessment LastModified [...] By Organization Details Last Modified Time 09/02/2025 [id number] - Continue using Flonase daily if it [...] Details Recorded Time Incompetence of nasal valve 046626150 Active 2024 Otto Fonseca [address], [address], [facility] - [facility] 15:11:36 Nasal obstruction 197243142 Active 2024 Otto Fonseca [address] [address], [place], [phone], [facility] - [facility] 15:11:41 Deviated nasal septum 790042456 Active 2024 Otto Fonseca [address] [address], [place], [address], [facility] - [facility] 15:11:46 Hypertrophy of nasal turbinates 18702454 Active 2024 Otto Fonseca [address] [address], [place], [address], [facility] - [facility] [...] Updated DateTime 09/02/2025 165.1 cm 28.3 kg/m2 96901.7 g Zulay Beltrán [place] - [facility] 09/02/2025 14:40:17 Social History Question Answer Notes LastModified by Organizat ion Details LastModified Time Tobacco Smoking Status Current Every Day Smoker Zulay duarte [place] - [facility] 09/02/2025 14:32:12 How Many Years Have You Consumed Alcohol? 43 [email or web address] Information not available 09/02/2025 What Type Of Melter Supervisor Open Hearth Furnace Do You Use? None [email or web address] Information not available 09/02/2025 How Many Alcoholic Drinks Do You Consume Per Day On Average? 1 [email or web address] Information not available 09/02/2025 What Is Your Current Pack Years? 10-19packyear s [email or web address] Information not available 09/02/2025 Do You Have Any Pets? No [email or web address] Information not available 09/02/2025 At What Age Did You Start Smoking Tobacco? 25 [email or web address] Information not available 09/02/2025 Are You Passively Exposed To Smoke? Yes [email or web address] Information not available 09/02/2025 Are There Any Smokers In Your House? No [email or web address] Information not available 09/02/2025 How Much Tobacco Do You Smoke? No [email or web address] Information not available 09/02/2025 How Many Years Have You Smoked Tobacco? 40 [email or web address] Information not available 09/02/2025 How Many Years Have You Used E-cigarettes Or Vape? 1 [email or web address] Information not available 09/02/2025 Sex: Unknown Functional Status Question Answer Note LastModified by Organizat ion Details LastModified Time How many times per week do you consume alcohol? 5-7 times per week [email or web address] Information not available 09/02/2025 Do you use any illicit or recreational drugs? No [email or web address] Information not available 09/02/2025 Do you or have you ever used any other forms of tobacco or nicotine? Yes [email or web address] Information not available 09/02/2025 What is your level of alcohol consumption? Occasional [email or web address] Information not available 09/02/2025 Do you or have you ever used smokeless tobacco? Never used smokeless tobacco [email or web address] Information not available 09/02/2025 Do you or have you ever used e-cigarettes or vape? Current user of electronic cigarettes [email or web address] Information not available 09/02/2025 What type of noise exposure are you exposed to? Other [email or web address] Information not available 09/02/2025 Mental Status None recorded. Family History Nothing Reported. Medical History Condition Response Allergies/Hayfever N Heart Problems N Anxiety Y Tonsil Infections N Emphysema N Migraines N Thyroid Problems Y Depression N COPD N Developmental Delay N Glaucoma N Nasal or Sinus Problems Y Anemia Y Immune System Disorder N Anesthesia Complications N Heart Attack (CT) N Other Skin Condition Y Diabetes N [...] ICD10 Code Diagnosis IMO Codes Diagnosis Note [id number] Otto Fonseca, DO [facility] [address] [place] [address] 09/02/2025 14:10:12 09/02/2025 15:11:16 Incompetence of nasal valve 128672802 J34.872 0433429 Nasal obstruction 552349 000 J34.89 59406 Deviated nasal septum 12 8658794 J34.2 871107 Hypertroph y of nasal turbinates 28261601 J34.3 364645 Health Concerns Section Related Observation LastModified by Organization Detai ls LastModified Time None Recorded Concern Status LastModified by Organization Details LastModified Time None Recorded Payers Encounter Date Sequence Insurance Name Policy Number Policy Crystal Covered Member ID Crystal Member ID Guarantor Name 09/02/2025 1 [place] [employer] Claudia Villela [id number] Claudia Navarretedeion 09/02/2025 2 [place] [facility] Claudia Navarretedeion [id number] Claudia Villela Notes Date Note Type Note [...] associated symptoms were reported. Otto Fonseca DO [address] [place] [address], [phone], [facility] - [facility] 09/02/2025 15:12:20 OBGyn Episode No OBEpisode recorded.
--- OUTSIDE RECORDS SUMMARY | 2025-09-27 08:12 | XMS_ITS | Encounter Summary ---
Author Organization [facility] Address [address] [place] [address] Care Team Providers Care Gut Snatcher Name Role Phone Hayden Man MD Primary Care Provider [phone] Maggy Swartz MD Unavailable [phone] Encounter Details Date Type Department Care Team (Late st Contact Info) Description 12/16/2020 Scanned Document [facility] Neurosurgery [address] [place] [address] Bibi Maza PA Valid Address Needed Social [...] on filedocumented in this encounter Care Teams Gut Snatcher Relationship Specialty Start Date End Date Hayden Man MD [address] [place] [address] [place] [address] PCP - General Internal Medicine 05/06/20 Maggy Swartz MD [address] [place] [address] Surgery, Neurosurgery 08/20/20 documented as of this encounter
== END 2025-09-27 08:10 | disposition home or self-care (01) ==
LOC: HO.CT 08:09
PROVIDERS: PCP Internal Medicine; Visit Provider Internal Medicine
DX: S09.90XA Unspecified injury of head, initial encounter (principal)
CPT/HCPCS: 70450

== ENCOUNTER → 2025-09-27 08:11 | Outpatient (BNV) | payer MEDICARE, MEDICAID, SELFPAY | PROVIDERS: PCP Internal Medicine; Visit Provider Radiology Diagnostic Radiology | DX: S09.90XA Unspecified injury of head, initial encounter (principal) | CPT/HCPCS: 70450 ==

== ENCOUNTER 2025-10-01 09:45 | Outpatient (REF) | payer MEDICARE, MEDICAID, SELFPAY ==
--- NOTE | ~2025-10-01 | XR_ITS ---
EXAMINATION: XR WRIST, LEFT CLINICAL INFORMATION: M25.532 - Pain in left wrist COMPARISON: 08/27/2025 TECHNIQUE: PA, lateral, and oblique views of the left wrist. FINDINGS: Volar plate and screws fix the distal radius, unchanged. There is no hardware break or abnormal lucency at bone metal interfaces. There is decreasing lucency from the fracture consistent with healing. There are no other changes. XR/XR wrist LT min 3V IMPRESSION: Continued healing of a distal radial fracture post-ORIF. Electronically signed by: Jesus Mackenzie MD 10/01/2025 11:32 AM HARRY MANCERA
--- OUTSIDE RECORDS SUMMARY | 2025-10-03 11:18 | XMS_ITS | Encounter Summary ---
Author Organization [facility] Address [address] [place] [address] Care Team Providers Care Medical Voucher Clerk Name Role Phone Hayden Man MD Primary Care Provider [phone] Maggy Swartz MD Unavailable [phone] Encounter Details Date Type Department Care Team (Late st Contact Info) Description 07/22/2021 Scanned Document [facility] Neurosurgery [address] [address] Maggy Swartz MD [address] [address] Social History Tobacco Use Types Packs/Day Years [...] filedocumented in this encounter Care Teams Medical Voucher Clerk Relationship Specialty Start Date End Date Hayden Man MD [address] [place] [address] [place] [address] PCP - General Internal Medicine 05/06/20 Maggy Swartz MD [address] [place] [address] Surgery, Neurosurgery 08/20/20 documented as of this encounter
--- OUTSIDE RECORDS SUMMARY | 2025-10-03 11:18 | XMS_ITS | Encounter Summary ---
Author Organization [address] [address] Care Team Providers Care Furniture Repairer Name Role Phone Hayden Man MD Primary Care Provider [phone] Maggy Swartz MD Unavailable [phone] Encounter Details Date Type Department Care Team (Late st Contact Info) Description 09/17/2020 Scanned Document [facility] Neurosurgery [place] 85 [facility] [address] [place] [address] Maggy Swartz MD 85 [facility] [place] [address] [place] [address] Social History Tobacco Use Types Packs/Day Years [...] on filedocumented in this encounter Care Teams Furniture Repairer Relationship Specialty Start Date End Date Hayden Man MD [address] [place] [address] [address] [place] [address] PCP - General Internal Medicine 05/06/20 Maggy Swartz MD [address] [place] [address] Surgery, Neurosurgery 08/20/20 documented as of this encounter
--- OUTSIDE RECORDS SUMMARY | 2025-10-03 11:18 | XMS_ITS | Clinical Summary ---
Author Organization [facility] Address [address] [place] [address] Care Team Providers Care Disk Sharpener Name Role Phone Hayden Man MD Primary Care Provider [phone] Maggy Swartz MD Unavailable Allergies No known active allergies Medications Acetaminophen [...] Vaccine 05/31/2025 08/26/2019 COVID-19 Vaccine ( - 2024-2 6 season) 2025 RSV Vaccine 50 years and old er and Patients (1 - 1-dose 75+ series) 2037 Hepatitis B Vaccines Aged Out No long er eligible based on patient's age to complete this topic Medical Devices Implanted Type Area Non Destructive Testing Inspector Device Identifier Shelf Expiration Date Model / Serial / Lot [id number] Spacer Spinal [id number] Cpstn Peek Ptc Lmbr Intrbd Fs Sterl - [id number] Implanted:Qty: 1 on 09/08/2020 by Maggy Swartz MD at [facility] Cage N/A: Spine Lumbar [employer] MINIMALLY INVASIVE T 10/20/2026 [id number] / / [id number] Ashok Spinal 70mm 5.5mm Cd Hzn Crv Ti Cp4 Nonst - [id number] Implanted:Qty: 2 on 09/08/2020 by Maggy Swartz MD at [facility] Nail/Ashok N/A: Spine Lumbar [employer] MINIMALLY INVASIVE T [id number] / / [id number] Screw Bone Spine Solera Cd Hzn 40mm Cocr 5.5mm Ma Nonst 5.5 - [id number] Implanted:Qty: 2 on 09/08/2020 by Maggy Swartz MD at [facility] Spine N/A: Spine Lumbar [employer] MINIMALLY INVASIVE T [id number] / / [id number] Screw Bone Spine Cd Hzn Solera 45mm Ti Cocr 5.5mm Ma Nonst - [id number] Implanted:Qty: 4 on 09/08/2020 by Maggy Swartz MD at [facility] Spine N/A: Spine Lumbar [employer] MINIMALLY INVASIVE T [id number] / / [id number] Screw Set Ti Spine Brk Off Cd Hzn Nonst 5.5 Mm Ashok - [id number] Implanted:Qty: 6 on 09/08/2020 by Maggy Swartz MD at [facility] Spine N/A: Spine Lumbar [employer] MINIMALLY INVASIVE T [id number] / / [id number] Filler Bone Void 10cc Dbx Algrf Frzdr Putty - [id number] Implanted:Qty: 1 on 09/08/2020 by Maggy Swartz MD at [facility] Void Filler N/A: Spine Lumbar MUSCULOSKELETAL TRANSPLANT FOU 03/19/2022 [id number] / [id number] / [id number] Filler Bone Void 10cc Dbx Algrf Frzdr Putty - [id number] Implanted:Qty: 1 on 09/08/2020 by Maggy Swartz MD at [facility] Void Filler N/A: Spine Lumbar MUSCULOSKELETAL TRANSPLANT FOU 12/13/2021 [id number] / [id number] / [id number] Filler Bone Void 10cc Dbx Algrf Frzdr Putty - [id number] Implanted:Qty: 1 on 09/08/2020 by Maggy Swartz MD at [facility] Void Filler N/A: Spine Lumbar MUSCULOSKELETAL TRANSPLANT FOU 03/19/2022 [id number] / [id number] / Insurance [facility] Advance Directives * Full Code (Latest Code Status on File) Date Activated Date Inactivated Comments 09/08/2020 8:09 PM * Full Code Date Activated Date Inactivated Comments 09/08/2020 9:46 AM 09/08/2020 8:09 PM * Full Code Date Activated Date Inactivated Comments 06/25/2020 3:59 PM 09/08/2020 9:10 AM * Full Code Date Activated Date Inactivated Comments 06/25/2020 8:24 AM 06/25/2020 3:59 PM Care Teams Disk Sharpener Relationship Specialty Start Date End Date Hayden Man MD [address] [place] [address] 101 [place] [address] PCP - General Internal Medicine 05/06/20 Maggy Swartz MD [address] [place] [address] Surgery, Neurosurgery 08/20/20
--- OUTSIDE RECORDS SUMMARY | 2025-10-03 11:18 | XMS_ITS | Encounter Summary ---
Author Organization [facility] Address [address] [place] [address] Care Team Providers Care Embedded Software Architect Name Role Phone Hayden Man MD Primary Care Provider [phone] Maggy Swartz MD Unavailable [phone] Encounter Details Date Type Department Care Team (Late st Contact Info) Description 02/02/2021 Scanned Document [facility] Neurosurgery [place] [address] [address] Maggy Swartz MD [address] [address] Social History Tobacco Use Types Packs/Day Years [...] on filedocumented in this encounter Care Teams Embedded Software Architect Relationship Specialty Start Date End Date Hayden Man MD [address] [place] [address] Dr Vo Vida AkersYOHANNES rogers [address] PCP - General Internal Medicine 05/06/20 Maggy Swartz MD [address] [place] [address] Surgery, Neurosurgery 08/20/20 documented as of this encounter
--- OUTSIDE RECORDS SUMMARY | 2025-10-03 11:18 | XMS_ITS | Encounter Summary ---
Author Organization [facility] Address [address] [place] [address] Care Team Providers Care Supervisor Tank House Name Role Phone Hayden Man MD Primary Care Provider [phone] Maggy Swartz MD Unavailable [phone] Encounter Details Date Type Department Care Team (Late st Contact Info) Description 03/24/2021 Scanned Document [facility] Neurosurgery [address] [address] Bibi Maza PA Valid Address [...] filedocumented in this encounter Care Teams Supervisor Tank House Relationship Specialty Start Date End Date Hayden Man MD [address] [place] [address] [place] [address] PCP - General Internal Medicine 05/06/20 Maggy Swartz MD [address] [place] [address] Surgery, Neurosurgery 08/20/20 documented as of this encounter
--- OUTSIDE RECORDS SUMMARY | 2025-10-03 11:18 | XMS_ITS | Encounter Summary ---
Author Organization [facility] Address [address] [place] [address] Phone Care Team Providers Care Booster Assembler Name Role Phone Hayden Man MD Primary Care Provider [phone] Encounter Details Date Type Department Care Team (Late st Contact Info) Description 10/13/2023 Procedure Pass [facility] [address] [place] [address] Social History Tobacco Use Types Packs/Day Years [...] on filedocumented in this encounter Care Teams Booster Assembler Relationship Specialty Start Date End Date Hayden Man MD [address] [place] [address] [place] [address] PCP - General Internal Medicine 07/18/17 documented as of this encounter Additional Source Comments The information contained in this document represents components of the legal health record. It is not the complete legal health record.[facility]
--- OUTSIDE RECORDS SUMMARY | 2025-10-03 11:18 | XMS_ITS | Encounter Summary ---
Author Organization [facility] Address [address] [place] [address] Care Team Providers Care Zinc Etcher Name Role Phone Hayden Man MD Primary Care Provider [phone] Maggy Swartz MD Unavailable [phone] Encounter Details Date Type Department Care Team (Late st Contact Info) Description 02/02/2021 Scanned Document [facility] Neurosurgery [place] [address] [address] Maggy Swartz MD [address] [address] Social History Tobacco Use Types Packs/Day Years [...] on filedocumented in this encounter Care Teams Zinc Etcher Relationship Specialty Start Date End Date Hayden Man MD [address] [place] [address] Dr Vo Vida AkersYOHANNES rogers [address] PCP - General Internal Medicine 05/06/20 Maggy Swartz MD [address] [place] [address] Surgery, Neurosurgery 08/20/20 documented as of this encounter
--- OUTSIDE RECORDS SUMMARY | 2025-10-03 11:18 | XMS_ITS | Clinical Summary ---
Author Organization [facility] Address [address] [place] [address] Phone Care Team Providers Care Administrative Representative Name Role Phone Po, Hayden Mckeon MD Primary Care Provider [phone] Allergies No known active allergies Medications LEVOTHYROXINE SODIUM (LEVOTHYROXINE ORAL) Take 88 mcg by mouth. Active CYANOCOBALAMIN, VITAMIN B-12, (VITAMIN B-12 ORAL) Take by mouth. Active MAGNESIUM ORAL Take by mouth. Active gabapentin (NEURONTIN) 600 MG tablet Take 600 mg by mouth 4 (four) times a day as needed. Active ferrous sulfate 325 mg (65 mg assiniboine and gros ventre tribes iron) tablet Take 325 mg by mouth [...] topic Medical Devices Not on file Insurance [employer] 3D MEDICARE PART A & B [facility] [place] [address] MEDICARE [place] Member Subscriber Plan / Payer (Ef fective 2022-) Name:Delvin Aden Relation to Subscriber:Self Name:Delvin Aden Payer ID:[id number] Group ID:Not on file Type:Medicaid Address: [facility] [address] [place] [phone] MEDICARE PART A & [place] [address] [place]ICARE [place] Member Subscriber Plan / Payer (Ef fective 2022-Present) Name:Tika Delvin Relation to Subscriber:Self Name:Delvin Aden Payer ID:[id number] Group ID:Not on file Type:Medicaid Address: [facility] [address] [place] [phone] MEDICARE PART A & B [place] MEDICARE PART A & B [employer] [facility] Care Teams Administrative Representative Relationship Specialty Start Date End Date Hayden Man MD [address] [place] [address] PCP - General Internal Medicine 07/18/17 Additional Source Comments The information contained in this document represents components of the legal health record. It is not the complete legal health record.[facility]
--- OUTSIDE RECORDS SUMMARY | 2025-10-03 11:18 | XMS_ITS | Encounter Summary ---
Author Organization [facility] Address [address] [place] [address] Care Team Providers Care Corn Chip Maker Name Role Phone Hayden Man MD Primary Care Provider [phone] Maggy Swartz MD Unavailable [phone] Encounter Details Date Type Department Care Team (Late st Contact Info) Description 12/16/[address] [facility] Neurosurgery [address] [place] [address] Bibi Maza PA Valid Address Needed Social [...] on filedocumented in this encounter Care Teams Corn Chip Maker Relationship Specialty Start Date End Date Hayden Man MD [address] [place] [address] [place] [address] PCP - General Internal Medicine 05/06/20 Maggy Swartz MD [address] [place] [address] Surgery, Neurosurgery 08/20/20 documented as of this encounter
--- OUTSIDE RECORDS SUMMARY | 2025-10-03 11:18 | XMS_ITS | Encounter Summary ---
Author Organization [facility] Address [address] [place] [address] Care Team Providers Care Sail Finisher Machine Name Role Phone Hayden Man MD Primary Care Provider [phone] Maggy Swartz MD Unavailable [phone] Encounter Details Date Type Department Care Team (Late st Contact Info) Description 12/16/2020 Scanned Document [facility] Neurosurgery [address] [place] [address] Bibi Maza PA Valid Address Needed Social [...] on filedocumented in this encounter Care Teams Sail Finisher Machine Relationship Specialty Start Date End Date Hayden Man MD [address] [place] [address] [place] [address] PCP - General Internal Medicine 05/06/20 Maggy Swartz MD [address] [place] [address] Surgery, Neurosurgery 08/20/20 documented as of this encounter
--- OUTSIDE RECORDS SUMMARY | 2025-10-03 11:18 | XMS_ITS | Encounter Summary ---
Author Organization [address] [address] Care Team Providers Care Trimming Cutter Machine Name Role Phone Hayden Man MD Primary Care Provider [phone] Maggy Swartz MD Unavailable [phone] Encounter Details Date Type Department Care Team (Late st Contact Info) Description 08/22/2020 Scanned Document [facility] Neurosurgery [place] 85 [facility] [address] [place] [address] Maggy Swartz MD 85 [facility] [place] [address] [place] [address] Social History Tobacco Use Types Packs/Day Years [...] on filedocumented in this encounter Care Teams Trimming Cutter Machine Relationship Specialty Start Date End Date Hayden Man MD [address] [place] [address] [address] [place] [address] PCP - General Internal Medicine 05/06/20 Maggy Swartz MD [address] [place] [address] Surgery, Neurosurgery 08/20/20 documented as of this encounter
--- OUTSIDE RECORDS SUMMARY | 2025-10-03 11:18 | XMS_ITS | Clinical Summary ---
Author Organization [facility] it Address [address] [place] [address] Care Team Providers Care Charter Coach Driver Name Role Phone Unavailable Primary Care Provider [...] Info) Description 11/19/2025 1:00 PM EST Appointment [facility] Xray [address] [place] [address] Health Maintenance Due Date Last [...]
--- OUTSIDE RECORDS SUMMARY | 2025-10-03 11:18 | XMS_ITS | Encounter Summary ---
Author Organization [facility] Address [address] [place] [address] Care Team Providers Care Long Wall Mining Machine Tender Name Role Phone Hayden Man MD Primary Care Provider [phone] Maggy Swartz MD Unavailable [phone] Encounter Details Date Type Department Care Team (Late st Contact Info) Description 12/16/2020 Scanned Document [facility] Neurosurgery [address] [place] [address] Bibi Maza PA Valid Address Needed Social [...] on filedocumented in this encounter Care Teams Long Wall Mining Machine Tender Relationship Specialty Start Date End Date Hayden Man MD [address] [place] [address] [place] [address] PCP - General Internal Medicine 05/06/20 Maggy Swartz MD [address] [place] [address] Surgery, Neurosurgery 08/20/20 documented as of this encounter
--- OUTSIDE RECORDS SUMMARY | 2025-10-03 11:18 | XMS_ITS | Data Portability ---
Author Organization [place] [facility] Address [address] [place] [address] Care Team Providers Care Adventure Challenge Instructor Name Role Phone CHRISTIANE AVENDANO Referring Provider [...] By Organization Details Last Modified Time 09/02/2025 15[address] - Continue using Flonase daily if it [...] Details Recorded Time Incompetence of nasal valve 298275406 Active 20[address]on[address]a [address], [address], [facility] - [facility] 15:11:36 Nasal obstruction 750525985 Active 2024 Otto Fonseca [address], [address], [facility] - [facility] 15:11:41 Deviated nasal septum 401523253 Active 2024 Otto Fonseca [address], [address], [facility] 15:11:46 Hypertrophy of nasal turbinates 03210371 Active 2024 Otto Fonseca [address], [address], [facility] - [facility] 15:11:53 Problem Notes None recorded. Medical Equipment [...] Updated DateTime 09/02/2025 165.1 cm 28.3 kg/m2 67258.7 g Zulay Beltrán [place] - [facility] 09/02/2025 14:40:17 Social History Question Answer Notes LastModified by Organizat ion Details LastModified Time Tobacco Smoking Status Current Every Day Smoker Zulay duarte [place] - [facility] 09/02/2025 14:32:12 How Many Years Have You Consumed Alcohol? 43 Information not available 09/02/2025 What Type Of Relationship Executive Do You Use? None [email or web address] Information not available 09/02/2025 How Many Alcoholic Drinks Do You Consume Per Day On Average? 1 [email or web address] Information not available 09/02/2025 What Is Your Current Pack Years? 10-19pavineet s [email or web address] Information not available 09/02/2025 Do You Have Any Pets? No [email or web address] Information not available 09/02/2025 At What Age Did You Start Smoking Tobacco? 25 [email or web address] Information not available 09/02/2025 Are You Passively Exposed To Smoke? Yes [email or web address] Information not available 09/02/2025 Are There Any Smokers In Your House? No [email or web address] Information not available 09/02/2025 How Much Tobacco Do You Smoke? No [email or web address] Information not available 09/02/2025 How Many Years Have You Smoked Tobacco? 40 [email or web address] Information not available 09/02/2025 How Many Years Have You Used E-cigarettes Or Vape? 1 [email or web address] Information not available 09/02/2025 Sex: Unknown Functional Status Question Answer Note LastModified by Organizat ion Details LastModified Time How many times per week do you consume alcohol? 5-7 times per week [email or web address] Information not available 09/02/2025 Do you use any illicit or recreational drugs? No [email or web address] Information not available 09/02/2025 Do you or have you ever used any other forms of tobacco or nicotine? Yes [email or web address] Information not available 09/02/2025 What is your level of alcohol consumption? Occasional Information not available 09/02/2025 Do you or have you ever used smokeless tobacco? Never used smokeless tobacco [email or web address] Information not available 09/02/2025 Do you or have you ever used e-cigarettes or vape? Current user of electronic cigarettes Information not available 09/02/2025 What type of noise exposure are you exposed to? Other [email or web address] Information not available 09/02/2025 Mental Status None recorded. Family History Nothing Reported. Medical History Condition Response Allergies/Hayfever N Heart Problems N Anxiety Y Tonsil Infections N Emphysema N Migraines N Thyroid Problems Y COPD N Depression N Developmental Delay N Glaucoma N Nasal or Sinus Problems Y Anemia Y Immune System Disorder N Anesthesia Complications N Heart Attack (IA) N Other Skin Condition Y Diabetes N [...] ICD10 Code Diagnosis IMO Codes Diagnosis Note [id number] Otto Fonseca DO [facility] [address] [address] 09/02/2025 14:10:12 09/02/2025 15:11:16 Incompetence of nasal valve 378828357 J34.104 9624046 Nasal obstruction 510369 000 J34.89 54223 Deviated nasal septum 12 3223272 J34.2 357582 Hypertroph y of nasal turbinates 81990045 J34.3 [id number] Health Concerns Section Related Observation LastModified by Organization Detai ls LastModified Time None Recorded Concern Status LastModified by Organization Details LastModified Time None Recorded Advance Directives Directive None Recorded Payers Insurance Date Sequence Insurance Name Policy Number Policy Crystal Covered Member ID Crystal Member ID Guarantor Name 09/02/2025 1 [place] [employer] Claudia Villela [id number] Claudia Navarretedeion 09/02/2025 2 [place] [facility] Claudia Navarretedeion [id number] Claudia Villela Notes Date Note Type Note [...] symptoms were reported. Otto Fonseca, DO [address], [address], [facility] - [facility] 09/02/2025 15:12:20 OBGyn Episode No OBEpisode recorded.
--- OUTSIDE RECORDS SUMMARY | 2025-10-03 11:18 | XMS_ITS | Continuity of Care Document ---
Author Organization [place] - [facility], [facility] Address [address] [place] [phone] Care Team Providers Care Portfolio Strategist Name Role Phone CHRISTIANE AVENDANO Referring Provider [phone] Assessment Encounter Date Assessment Date Assessment LastModified [...] By Organization Details Last Modified Time 09/02/2025 [id number] - Continue using Flonase daily if it [...] Details Recorded Time Incompetence of nasal valve 429761359 Active 2024 Otto Fonseca [address], [address], [facility] - [facility] 15:11:36 Nasal obstruction 057312041 Active 2024 Otto Fonseca [address] [address], [place], [address], [facility] - [facility] 15:11:41 Deviated nasal septum 479785784 Active 2024 Otto Fonseca [address] [address], [place], [address], [facility] - [facility] 15:11:46 Hypertrophy of nasal turbinates 18085710 Active 2024 Otto Fonseca [address] [address], [place], [address], [facility] - [facility] 15:11:53 Problem Notes None recorded. Medical [...] Updated DateTime 09/02/2025 165.1 cm 28.3 kg/m2 82086.7 g Zulay Beltrán [place] - [facility] 09/02/2025 14:40:17 Social History Question Answer Notes LastModified by Organizat ion Details LastModified Time Tobacco Smoking Status Current Every Day Smoker Zulay duarte [place] - [facility] 09/02/2025 14:32:12 How Many Years Have You Consumed Alcohol? 43 [email or web address] Information not available 09/02/2025 What Type Of Reel Cart Operator Do You Use? None Information not available 09/02/2025 How Many Alcoholic Drinks Do You Consume Per Day On Average? 1 [email or web address] Information not available 09/02/2025 What Is Your Current Pack Years? 10-19packyear s [email or web address] Information not available 09/02/2025 Do You Have Any Pets? No [email or web address] Information not available 09/02/2025 At What Age Did You Start Smoking Tobacco? 25 Information not available 09/02/2025 Are You Passively Exposed To Smoke? Yes [email or web address] Information not available 09/02/2025 Are There Any Smokers In Your House? No [email or web address] Information not available 09/02/2025 How Much Tobacco Do You Smoke? No [email or web address] Information not available 09/02/2025 How Many Years Have You Smoked Tobacco? 40 [email or web address] Information not available 09/02/2025 How Many Years Have You Used E-cigarettes Or Vape? 1 [email or web address] Information not available 09/02/2025 Sex: Unknown Functional Status Question Answer Note LastModified by Organizat ion Details LastModified Time How many times per week do you consume alcohol? 5-7 times per week [email or web address] Information not available 09/02/2025 Do you use any illicit or recreational drugs? No [email or web address] Information not available 09/02/2025 Do you or have you ever used any other forms of tobacco or nicotine? Yes [email or web address] Information not available 09/02/2025 What is your level of alcohol consumption? Occasional [email or web address] Information not available 09/02/2025 Do you or have you ever used smokeless tobacco? Never used smokeless tobacco [email or web address] Information not available 09/02/2025 Do you or have you ever used e-cigarettes or vape? Current user of electronic cigarettes [email or web address] Information not available 09/02/2025 What type of noise exposure are you exposed to? Other [email or web address] Information not available 09/02/2025 Mental Status None [...] ICD10 Code Diagnosis IMO Codes Diagnosis Note [id number] Otto Fonseca, DO [facility] [address] [place] [address] 09/02/2025 14:10:12 09/02/2025 15:11:16 Incompetence of nasal valve 955241181 J34.662 0428149 Nasal obstruction 765304 000 J34.89 24330 Deviated nasal septum 12 7370100 J34.2 460230 Hypertroph y of nasal turbinates 50233238 J34.3 622455 Health Concerns Section Related Observation LastModified by Organization Detai ls LastModified Time None Recorded Concern Status LastModified by Organization Details LastModified Time None Recorded Payers Encounter Date Sequence Insurance Name Policy Number Policy Crystal Covered Member ID Crystal Member ID Guarantor Name 09/02/2025 1 [place] [employer] Claudia Villela [id number] Claudia Navarretedeion 09/02/2025 2 [place] [id number] Claudia Navarretedeion [id number] Claudia Villela Notes Date Note Type Note [...] associated symptoms were reported. Otto Fonseca DO [address] [place] [address], [phone], [facility] - [facility] 09/02/2025 15:12:20 OBGyn Episode No OBEpisode recorded.
--- OUTSIDE RECORDS SUMMARY | 2025-10-03 11:18 | XMS_ITS | Encounter Summary ---
Author Organization [facility] Address [address] [place] [address] Care Team Providers Care Environmental Services Worker Name Role Phone Hayden Man MD Primary Care Provider [phone] Maggy Swartz MD Unavailable [phone] Encounter Details Date Type Department Care Team (Late st Contact Info) Description 09/11/2021 Scanned Document [facility] [place] [address] [address] Maggy Swartz MD [address] [address] Social History Tobacco Use Types Packs/Day Years [...] on filedocumented in this encounter Care Teams Environmental Services Worker Relationship Specialty Start Date End Date Hayden Man MD [address] [place] [address] [place] [address] PCP - General Internal Medicine 05/06/20 Maggy Swartz MD [address] [place] [id number] Surgery, Neurosurgery 08/20/20 documented as of this encounter
== END 2025-10-01 09:46 | disposition home or self-care (01) ==
LOC: HO.HOSX 09:45
PROVIDERS: Visit Provider Orthopaedic Surgery
DX: S52.502K Unspecified fracture of the lower end of left radius, subsequent encounter for closed fracture with nonunion (principal); R29.6 Repeated falls; G89.4 Chronic pain syndrome; F17.210 Nicotine dependence, cigarettes, uncomplicated
CPT/HCPCS: 73110

== ENCOUNTER 2025-10-01 10:45 | Outpatient (AMB) | payer MEDICARE, MEDICAID, SELFPAY ==
[2025-10-01 11:01] VITALS: BMI 29.3
--- NOTE | 2025-10-01 11:01 | A.OFFVIS_ITS ---
Vital Signs 10/01/25 11:01 Height 5 ft 5 in Weight 176 lb BMI 29.3 Intake Visit Reasons: O/V Left wrist pain:S/P Bone Stimulator Intake Note: Claudia 65 yr old right hand dominant female presents today Left distal radius non-union, S/P ORIF DOS: 02/14/25, S/P fall, DOI: 02/09/25, Reduced in ED: 02/09/25. At her last visit she was advise to use a bone stimulator. Today p atient states she has no pain, continues to wear her wrist brace. Xrays updated in office. Allergies No Known Allergies (No Known Allergies*) Allergy (Verified 10/01/25 11:19) HPI HPI O/V Left wrist pain:S/P Bone Stimulator: Details: Claudia is a 65 year old right hand dominant woman who at last visit was found to have developed a nonunion S/P left distal radius ORIF, DOS: 02/14/25. S/P fall, DOI: 02/09/25. At last visit we talked about the importance of activity modification, smoking cessation, talking with her primary care provider about evaluating her for medical reasons for nonunion such as vitamin-D deficiency. She was also started on a bone stimulator which she says that she has been using. She says that she has also cut back on her smoking in his awaiting the results of the labs and bone density test she had with her primary care provider. She is here for a ROM check and see how she is progressing She says that she has been wearing her splint and been more careful with her activities. She denies having any pain. She denies smoking but says she vapes several times daily. She says she has cut down alot on her daily use. She denies any numbness or tingling. She says she fell at the time of her injury, due to her left leg giving way. 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 She sees Pain Management for this. 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 [facility] Medical History Breast cancer screening by mammogram Generalized anxiety disorder Left leg paresthesias Bacterial vaginosis Anxiety Opioid use disorder Chronic pain syndrome Postlaminectomy syndrome Complex regional pain syndrome i of left lower limb Primary osteoarthritis of left knee Tobacco abuse Renal lesion Closed left ankle fracture Cervical disc herniation Hypothyroidism Surgical History Hx of cervical discectomy H/O colonoscopy H/O lumbar discectomy Spinal stenosis History of left knee surgery Left ACL tear Family History Father No problems noted. 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 Cognitive needs: No Hearing needs: No Vision needs: No Review of Systems Const All systems reviewed & are unremarkable except as noted in HPI and below Physical Exam Vital Signs: BMI result Body Mass Index 29.3 Const General: no acute distress and alert Orientation/consciousness: patient oriented x3 Neuro General: patient oriented x3 Extrem Other: Evaluation of Left Upper Ext/remity: The patient is alert, oriented, and in no acute distress Sensation is normal to the tips of all digits Cap refill brisk ROM: She can make a fist and extend all her digits, with no pain Full & symetrical pronosupination Fracture site non-tender Radiographs: 3 views of the left wrist from today were reviewed by me today in clinic. They show a transverse distal radius fracture with satisfactory fracture alignment, position of all implants, no evidence of loosening, and definite increased radiodensity around the fracture site, suggestive of increased bony healing Left wrist CT scan, 06/24/25: Findings: Patient's initial radiographs from February 09, 2025 demonstrated a comminuted and impacted fracture of the distal radius. Patient's subsequently underwent placement of volar plate and screw device of the distal radius fracture identified on radiographs from February 26, 2025. On subsequent radiographs from April 03, 2025 and May 08, 2025, fracture line remains apparent without solid bony bridging at the fracture line. CT scan was subsequently performed. Patient's CT scan demonstrates unchanged position of the volar plate and screw device over the distal radius. This is spanning the fracture of the distal radial metaphysis. However, no significant callus formation or bony bridging is seen at the fracture line. There is sclerosis developing on both sides of the fracture line. Diastasis at the fracture line measuring up to 5 mm. Approximately 3 mm of posterior displacement of the distal fracture fragment. No fracture of the surgical hardware is evident. No bony destructive change seen to suggest osteolysis. Disuse osteopenia is evident. Impression: Status post open reduction internal fixation of the previously identified distal radius fracture. No bony bridging or callus formation seen of the fracture line concerning for delayed union or potentially developing nonunion given the timeframe of the patient's initial injury. Please see above for full details. 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 Left distal radius non-union, S/P ORIF DOS: 02/14/25 S/P fall, DOI: 02/09/25 Reduced in ED: 02/09/25 The patient appears to be doing well post-operatively in regards to pain She now has good evidence of interval bony healing since she has been using a bone stimulator She now only needs to wear her wrist splint with snow a weather for the next 4 weeks. After that she may discontinue the splint altogether. - I recommend that she speak with Dr. AVENDANO, her PCP, concerning bloodwork including vitamin-D and calcium levels and possibly other metabolic studies to rule out these conditions as contributing factors in her lack of bony healing.? - I explained the effects of smoking on wound/bone healing, and recommend they stop smoking/vaping while healing, as we are very concerned that she is developing a non-union of her distal radius fracture. This includes vaping, Marijuana, and other Nicotine products including patches used to help quit. They expressed understanding and says she will work on attempting to stop her vaping.?She says she has cut down alot for her smoking & vaping. Continue use of her bone stimulator as she was directed for 1 more month and then discontinue. I discussed activity modifications, she is to lift lightweight objects and slowly increase her activities as tolerated over the next 6-8 weeks. She has a hx of frequent falls, CPS, CRPS affecting her LLE, and anxiety disord er She will follow up prn Scribed for Sarahy Ramirez MD by Denis Silva, registered medical assistant, on 10/01/25 at 11:20 AM, EST. 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
--- OUTSIDE RECORDS SUMMARY | 2025-10-01 12:34 | XMS_ITS | Encounter Summary ---
Author Organization [address] [address] Care Team Providers Care Neighborhood Conservation Officer Name Role Phone Hayden Man MD Primary Care Provider [phone] Maggy Swartz MD Unavailable [phone] Encounter Details Date Type Department Care Team (Late st Contact Info) Description 08/22/2020 Scanned Document [facility] Neurosurgery [place] 85 [facility] [address] [place] [phone] Maggy Swartz MD 85 [facility] [place] [address] [place] [address] Social History Tobacco Use Types Packs/Day Years [...] on filedocumented in this encounter Care Teams Neighborhood Conservation Officer Relationship Specialty Start Date End Date Hayden Man MD [address] [place] [address] [address] [place] [address] PCP - General Internal Medicine 05/06/20 Maggy Swartz MD [address] [place] [address] Surgery, Neurosurgery 08/20/20 documented as of this encounter
--- OUTSIDE RECORDS SUMMARY | 2025-10-01 12:34 | XMS_ITS | Encounter Summary ---
Author Organization [facility] Address [address] [place] [address] Care Team Providers Care Supervisor Inspection And Testing Name Role Phone Hayden Man MD Primary Care Provider [phone] Maggy Swartz MD Unavailable [phone] Encounter Details Date Type Department Care Team (Late st Contact Info) Description 02/02/2021 Scanned Document [facility] Neurosurgery [place] [address] [address] Maggy Swartz MD [address] [address] Social History Tobacco Use Types Packs/Day Years [...] filedocumented in this encounter Care Teams Supervisor Inspection And Testing Relationship Specialty Start Date End Date Hayden Man MD [address] [place] [address] [place] [address] PCP - General Internal Medicine 05/06/20 Maggy Swartz MD [address] [place] [address] Surgery, Neurosurgery 08/20/20 documented as of this encounter
--- OUTSIDE RECORDS SUMMARY | 2025-10-01 12:34 | XMS_ITS | Clinical Summary ---
Author Organization [facility] Address [address] [place] [address] Phone Care Team Providers Care Assistant Passenger Locomotive Engineer Name Role Phone Po, Hayden Mckeon MD Primary Care Provider [phone] Allergies No known active allergies Medications LEVOTHYROXINE SODIUM (LEVOTHYROXINE ORAL) Take 88 mcg by mouth. Active CYANOCOBALAMIN, VITAMIN B-12, (VITAMIN B-12 ORAL) Take by mouth. Active MAGNESIUM ORAL Take by mouth. Active gabapentin (NEURONTIN) 600 MG tablet Take 600 mg by mouth 4 (four) times a day as needed. Active ferrous sulfate 325 mg (65 mg tribal iron) tablet Take 325 mg by mouth [...] topic Medical Devices Not on file Insurance [employer] MEDICARE PART A & B [facility] [place] [address] MEDICARE PART A [place] [address] MEDICARE PART [place] PART A & B [employer] [facility] Care Teams Assistant Passenger Locomotive Engineer Relationship Specialty Start Date End Date Hayden Man MD [address] [place] [address] PCP - General Internal Medicine 07/18/17 Additional Source Comments The information contained in this document represents components of the legal health record. It is not the complete legal health record.[facility]
--- OUTSIDE RECORDS SUMMARY | 2025-10-01 12:34 | XMS_ITS | Encounter Summary ---
Author Organization [address] [address] Care Team Providers Care Manager Truck Name Role Phone Hayden Man MD Primary Care Provider [phone] Maggy Swartz MD Unavailable [phone] Encounter Details Date Type Department Care Team (Late st Contact Info) Description 09/17/2020 Scanned Document [facility] [place]surgery [place] 85 [facility] [address] [place] [phone] Maggy Swartz MD 85 [facility] [place] [address] [place] [address] Social History Tobacco Use Types Packs/Day Years [...] filedocumented in this encounter Care Teams Manager Truck Relationship Specialty Start Date End Date Hayden Man MD [address] [place] [address] [address] [place] [address] PCP - General Internal Medicine 05/06/20 Maggy Swartz MD [address] [place] [address] Surgery, Neurosurgery 08/20/20 documented as of this encounter
--- OUTSIDE RECORDS SUMMARY | 2025-10-01 12:34 | XMS_ITS | Continuity of Care Document ---
Author Organization [place] - [facility], [facility] Address [address] [place] [address] Care Team Providers Care Gore Inserter Name Role Phone CHRISTIANE AVENDANO Referring Provider [...] By Organization Details Last Modified Time 09/02/2025 80068 - Continue using Flonase daily if it [...] Details Recorded Time Incompetence of nasal valve 178485765 Active 2024 Otto Fonseca [address], [address], [facility] - [facility] 15:11:36 Nasal obstruction 494367160 Active 2024 Otto Fonseca [address] [address], [place], [address], [facility] - [facility] 15:11:41 Deviated nasal septum 116317137 Active 2024 Otto Fonseca [address] [address], [place], [address], [facility] - [facility] 15:11:46 Hypertrophy of nasal turbinates 92835022 Active 2024 Otto Fonseca [address] [address], [place], [address], [facility] - [facility] 15:11:53 Problem Notes None recorded. Medical [...] Updated DateTime 09/02/2025 165.1 cm 28.3 kg/m2 75415.7 g Zulay Beltrán [place] - [facility] 09/02/2025 14:40:17 Social History Question Answer Notes LastModified by Organizat ion Details LastModified Time Tobacco Smoking Status Current Every Day Smoker Zulay duarte [place] - [facility] 09/02/2025 14:32:12 How Many Years Have You Consumed Alcohol? 43 [email or web address] Information not available 09/02/2025 What Type Of Leadite Heater Do You Use? None [email or web address] Information not available 09/02/2025 How Many Alcoholic Drinks Do You Consume Per Day On Average? 1 [email or web address] Information not available 09/02/2025 What Is Your Current Pack Years? 10-19packyear s Information not available 09/02/2025 Do You Have Any Pets? No [email or web address] Information not available 09/02/2025 At What Age Did You Start Smoking Tobacco? 25 bwshpoido19 Information not available 09/02/2025 Are You Passively Exposed To Smoke? Yes [email or web address] Information not available 09/02/2025 Are There Any Smokers In Your House? No [email or web address] Information not available 09/02/2025 How Much Tobacco Do You Smoke? No [email or web address] Information not available 09/02/2025 How Many Years Have You Smoked Tobacco? 40 aqcqddyrl56 Information not available 09/02/2025 How Many Years Have You Used E-cigarettes Or Vape? 1 [email or web address] Information not available 09/02/2025 Sex: Unknown Functional Status Question Answer Note LastModified by Organizat ion Details LastModified Time How many times per week do you consume alcohol? 5-7 times per week obepovjzq49 Information not available 09/02/2025 Do you use any illicit or recreational drugs? No [email or web address] Information not available 09/02/2025 Do you or have you ever used any other forms of tobacco or nicotine? Yes [email or web address] Information not available 09/02/2025 What is your level of alcohol consumption? Occasional kdzdbfriq66 Information not available 09/02/2025 Do you or have you ever used smokeless tobacco? Never used smokeless tobacco lqzvghzie09 Information not available 09/02/2025 Do you or have you ever used e-cigarettes or vape? Current user of electronic cigarettes olizmcmfe92 Information not available 09/02/2025 What type of noise exposure are you exposed to? Other rfoiaffmu47 Information not available 09/02/2025 Mental Status None recorded. Family History Nothing Reported. Medical History Condition Response Allergies/Hayfever N Heart Problems N Anxiety Y Tonsil Infections N Emphysema N Migraines N Thyroid Problems Y Glaucoma N Depression N COPD N Developmental Delay N Nasal or Sinus Problems Y Anemia Y Immune System Disorder N Anesthesia Complications N Heart Attack (AR) N Other Skin Condition Y Diabetes N Rhinitis N Bleeding Disorder N Food Allergy N Arthritis Y Hearing Loss Y Hyperlipidemia N Cancer Y Stroke N Dementia N Nasal polyps N Asthma N Sleep Disorder N GERD/Reflux N High Cholesterol N Liver Disease N Headaches N Fibromyalgia N Hypertension N Speech Delay N Kidney Disease N Gynecological HistoryNo gynecological history recorded. Obstetrics History GPAL:G 0 P 0 0 0 0 Past Encounters Encounter ID Performer Location Encounter Start Date Encounter Closed Date Diagnosis/Indication Diagnosis SNOMED-CT Code Diagnosis ICD10 Code Diagnosis IMO Codes Diagnosis Note [id number] Otto Fonseca, DO [facility] [address] [place] [address] 09/02/2025 14:10:12 09/02/2025 15:11:16 Incompetence of nasal valve 063185031 J34.473 0478514 Nasal obstruction 057757 000 J34.89 77697 Deviated nasal septum 12 6365552 J34.2 645136 Hypertroph y of nasal turbinates 09837070 J34.3 363297 Health Concerns Section Related Observation LastModified by Organization Detai ls LastModified Time None Recorded Concern Status LastModified by Organization Details LastModified Time None Recorded Payers Encounter Date Sequence Insurance Name Policy Number Policy Crystal Covered Member ID Crystal Member ID Guarantor Name 09/02/2025 1 [place]ICARE B-[place]: [employer] Claudia Villela [id number] Claudia Navarretedeion 09/02/2025 2 [place] [facility] Claudia Navarrteedeion [id number] Claudia Villela Notes Date Note Type Note [...] associated symptoms were reported. Otto Fonseca DO [address] [place] [address], [address], [facility] - [facility] 09/02/2025 15:12:20 OBGyn Episode No OBEpisode recorded.
--- OUTSIDE RECORDS SUMMARY | 2025-10-01 12:34 | XMS_ITS | Encounter Summary ---
Author Organization [facility] Address [address] [place] [address] Phone Care Team Providers Care Surgical Technologist Name Role Phone Hayden Man MD Primary Care Provider [phone] Encounter Details Date Type Department Care Team (Late st Contact Info) Description 10/13/2023 Procedure Pass [facility], [facility] [address] [place] [address] Social History Tobacco Use Types Packs/Day Years [...] on filedocumented in this encounter Care Teams Surgical Technologist Relationship Specialty Start Date End Date Hayden Man MD [address] [place] [address] [place] [address] PCP - General Internal Medicine 07/18/17 documented as of this encounter Additional Source Comments The information contained in this document represents components of the legal health record. It is not the complete legal health record.[facility]
--- OUTSIDE RECORDS SUMMARY | 2025-10-01 12:34 | XMS_ITS | Encounter Summary ---
Author Organization [facility] Address [address] [place] [address] Care Team Providers Care Die Attaching Machine Tender Name Role Phone Hayden Man MD Primary Care Provider [phone] Maggy Swartz MD Unavailable [phone] Encounter Details Date Type Department Care Team (Late st Contact Info) Description 12/16/2020 Scanned Document [facility] Neurosurgery [address] [place] [address] Bibi Maza PA Valid Address Needed Social [...] filedocumented in this encounter Care Teams Die Attaching Machine Tender Relationship Specialty Start Date End Date Hayden Man MD [address] [place] [address] [place] [address] PCP - General Internal Medicine 05/06/20 Maggy Swartz MD [address] [place] [address] Surgery, Neurosurgery 08/20/20 documented as of this encounter
--- OUTSIDE RECORDS SUMMARY | 2025-10-01 12:34 | XMS_ITS | Encounter Summary ---
Author Organization [facility] Address [address] [place] [address] Care Team Providers Care Team Assembler Name Role Phone Hayden Man MD Primary Care Provider [phone] Maggy Swartz MD Unavailable [phone] Encounter Details Date Type Department Care Team (Late st Contact Info) Description 09/11/2021 Scanned Document [facility] Neurosurgery [place] [address] [address] Maggy Swartz MD [address] [address] Social History Tobacco Use Types Packs/Day Years [...] on filedocumented in this encounter Care Teams Team Assembler Relationship Specialty Start Date End Date Hayden Man MD [address] [place] [address] [place] [address] PCP - General Internal Medicine 05/06/20 Maggy Swartz MD [address] [place] [address] Surgery, Neurosurgery 08/20/20 documented as of this encounter
--- OUTSIDE RECORDS SUMMARY | 2025-10-01 12:34 | XMS_ITS | Data Portability ---
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 - [facility] 15:11:36 Nasal obstruction 785738405 Active 2024 Otto Fonseca [address], [address], [facility] - [facility] 15:11:41 Deviated nasal septum 289863456 Active 2024 Otto Fonseca [address], [address], [facility] 15:11:46 Hypertrophy of nasal turbinates 72793222 Active 2024 Otto Fonseca [address], [address], [facility] - [facility] 15:11:53 Problem Notes None recorded. Medical Equipment [...] Updated DateTime 09/02/2025 165.1 cm 28.3 kg/m2 45462.7 g Zulay Beltrán [place] - [facility] 09/02/2025 14:40:17 Social History Question Answer Notes LastModified by Organizat ion Details LastModified Time Tobacco Smoking Status Current Every Day Smoker Zulay duarte [place] - [facility] 09/02/2025 14:32:12 How Many Years Have You Consumed Alcohol? 43 [email or web address] Information not available 09/02/2025 What Type Of Electrical Linesworker Do You Use? None [email or web address] Information not available 09/02/2025 How Many Alcoholic Drinks Do You Consume Per Day On Average? 1 [email or web address] Information not available 09/02/2025 What Is Your Current Pack Years? 10-19pavineet s nzoxqrxgu81 Information not available 09/02/2025 Do You Have Any Pets? No [email or web address] Information not available 09/02/2025 At What Age Did You Start Smoking Tobacco? 25 icxrfkrjh85 Information not available 09/02/2025 Are You Passively Exposed To Smoke? Yes zeqeqkrre68 Information not available 09/02/2025 Are There Any Smokers In Your House? No [email or web address] Information not available 09/02/2025 How Much Tobacco Do You Smoke? No yvdmrnlfq55 Information not available 09/02/2025 How Many Years Have You Smoked Tobacco? 40 Information not available 09/02/2025 How Many Years Have You Used E-cigarettes Or Vape? 1 anemavhem51 Information not available 09/02/2025 Sex: Unknown Functional Status Question Answer Note LastModified by Organizat ion Details LastModified Time How many times per week do you consume alcohol? 5-7 times per week badqkrlap74 Information not available 09/02/2025 Do you use any illicit or recreational drugs? No waekiptag30 Information not available 09/02/2025 Do you or have you ever used any other forms of tobacco or nicotine? Yes prjknmziv46 Information not available 09/02/2025 What is your level of alcohol consumption? Occasional Information not available 09/02/2025 Do you or have you ever used smokeless tobacco? Never used smokeless tobacco zzzladoxw93 Information not available 09/02/2025 Do you or have you ever used e-cigarettes or vape? Current user of electronic cigarettes pcmmylfni86 Information not available 09/02/2025 What type of noise exposure are you exposed to? Other bcbnctyqb53 Information not available 09/02/2025 Mental Status None recorded. Family History Nothing Reported. Medical History Condition Response Allergies/Hayfever N Heart Problems N Anxiety Y Tonsil Infections N Emphysema N Migraines N Thyroid Problems Y Glaucoma N Developmental Delay N Depression N COPD N Nasal or Sinus Problems Y Anemia Y Immune System Disorder N Anesthesia Complications N Heart Attack (MS) N Other Skin Condition Y Diabetes N [...] ICD10 Code Diagnosis IMO Codes Diagnosis Note [id number] Otto Fonseca DO ENTS of [address] [address] 09/02/2025 14:10:12 09/02/2025 15:11:16 Incompetence of nasal valve 609378470 J34.040 8375721 Nasal obstruction 797488 000 J34.89 21032 Deviated nasal septum 12 2883032 J34.2 258786 Hypertroph y of nasal turbinates 77969878 J34.3 879054 Health Concerns Section Related Observation LastModified by Organization Detai ls LastModified Time None Recorded Concern Status LastModified by Organization Details LastModified Time None Recorded Advance Directives Directive None Recorded Payers Insurance Date Sequence Insurance Name Policy Number Policy Crystal Covered Member ID Crystal Member ID Guarantor Name 09/02/2025 1 [place]ICARE B-[place]: [employer] Claudia Villela [id number] Claudia Navarretedeion 09/02/2025 2 MED[place]: [facility] Claudia Navarretedeion [id number] Claudia Villela Notes Date Note Type Note [...] symptoms were reported. Otto Fonseca, DO [address], [address], [facility] - [facility] 09/02/2025 15:12:20 OBGyn Episode No OBEpisode recorded.
--- OUTSIDE RECORDS SUMMARY | 2025-10-01 12:34 | XMS_ITS | Encounter Summary ---
Author Organization [facility] Address [address] [place] [address] Care Team Providers Care Rn Radiology Name Role Phone Hayden Man MD Primary Care Provider [phone] Maggy Swartz MD Unavailable [phone] Encounter Details Date Type Department Care Team (Late st Contact Info) Description 12/16/2020 Scanned Document [facility] Neurosurgery [address] [place] [address] Bibi Maza PA Valid Address Needed Social [...] on filedocumented in this encounter Care Teams Rn Radiology Relationship Specialty Start Date End Date Hayden Man MD [address] [place] [address] [place] [address] PCP - General Internal Medicine 05/06/20 Maggy Swartz MD [address] [place] [address] Surgery, Neurosurgery 08/20/20 documented as of this encounter
--- OUTSIDE RECORDS SUMMARY | 2025-10-01 12:34 | XMS_ITS | Clinical Summary ---
Author Organization [facility] Address [address] [place] [address] Care Team Providers Care Senior Capital Markets Specialist Name Role Phone Hayden Man MD Primary Care Provider [phone] Maggy Swartz MD Unavailable [phone] Allergies No known active allergies Medications [...] this topic Medical Devices Implanted Type Area Renal Medicine Physician Device Identifier Shelf Expiration Date Model / Serial / Lot [id number] Spacer Spinal 06reu24tm Cpstn Peek Ptc Lmbr Intrbd Fs Sterl - [id number] Implanted:Qty: 1 on 09/08/2020 by Maggy Swartz MD at [facility] Cage N/A: Spine Lumbar [employer] 10/20/2026 [id number] / / [id number] Ashok Spinal 70mm 5.5mm Cd Hzn Crv Ti Cp4 Nonst - [id number] Implanted:Qty: 2 on 09/08/2020 by Maggy Swartz MD at [facility] Nail/Ashok N/A: Spine Lumbar [employer] [id number] / / [id number] Screw Bone Spine Solera Cd Hzn 40mm Cocr 5.5mm Ma Nonst 5.5 - [id number] Implanted:Qty: 2 on 09/08/2020 by Maggy Swartz MD at [facility] Spine N/A: Spine Lumbar [employer] [id number] / / [id number] Screw Bone Spine Cd Hzn Solera 45mm Ti Cocr 5.5mm Ma Nonst - [id number] Implanted:Qty: 4 on 09/08/2020 by Maggy Swartz MD at [facility] Spine N/A: Spine Lumbar [employer] [id number] / / [id number] Screw Set Ti Spine Brk Off Cd Hzn Nonst 5.5 Mm Ashok - [id number] Implanted:Qty: 6 on 09/08/2020 by Maggy Swartz MD at [facility] Spine N/A: Spine Lumbar [employer] [id number] / / [id number] Filler Bone Void 10cc Dbx Algrf Frzdr Putty - [id number] Implanted:Qty: 1 on 09/08/2020 by Maggy Swartz MD at [facility] Void Filler N/A: Spine Lumbar [employer] 03/19/2022 [id number] / [id number] / [id number] Filler Bone Void 10cc Dbx Algrf Frzdr Putty - [id number] Implanted:Qty: 1 on 09/08/2020 by Maggy Swartz MD at [facility] Void Filler N/A: Spine Lumbar [employer] 12/13/2021 [id number] / [id number] Filler Bone Void 10cc Dbx Algrf Frzdr Putty - [id number] Implanted:Qty: 1 on 09/08/2020 by Maggy Swartz MD at [facility] Void Filler N/A: Spine Lumbar [employer] 03/19/2022 [id number] / [id number] / Insurance [facility] Advance Directives * Full Code (Latest Code Status on File) Date Activated Date Inactivated Comments 09/08/2020 8:09 PM * Full Code Date Activated Date Inactivated Comments 09/08/2020 9:46 AM 09/08/2020 8:09 PM * Full Code Date Activated Date Inactivated Comments 06/25/2020 3:59 PM 09/08/2020 9:10 AM * Full Code Date Activated Date Inactivated Comments 06/25/2020 8:24 AM 06/25/2020 3:59 PM Care Teams Senior Capital Markets Specialist Relationship Specialty Start Date End Date Hayden Man MD [address] [place] [address] [address] [place] [address] PCP - General Internal Medicine 05/06/20 Maggy Swartz MD [address] [place] [address] Surgery, Neurosurgery 08/20/20
--- OUTSIDE RECORDS SUMMARY | 2025-10-01 12:34 | XMS_ITS | Encounter Summary ---
Author Organization [facility] Address [address] [place] [address] Care Team Providers Care Hasher Operator Name Role Phone Hayden Man MD Primary Care Provider [phone] Maggy Swartz MD Unavailable [phone] Encounter Details Date Type Department Care Team (Late st Contact Info) Description 07/22/2021 Scanned Document [facility] Neurosurgery [place] [address] [address] Maggy Swartz MD [address] [address] Social History Tobacco Use Types Packs/Day Years [...] on filedocumented in this encounter Care Teams Hasher Operator Relationship Specialty Start Date End Date Hayden Man MD [address] [place] [address] [place] [address] PCP - General Internal Medicine 05/06/20 Maggy Swartz MD [address] [place] [address] Surgery, Neurosurgery 08/20/20 documented as of this encounter
--- OUTSIDE RECORDS SUMMARY | 2025-10-01 12:34 | XMS_ITS | Encounter Summary ---
Author Organization [facility] Address [address] [place] [address] Care Team Providers Care Aerial Gunner Superintendent Name Role Phone Hayden Man MD Primary Care Provider [phone] aMggy Swartz MD Unavailable [phone] Encounter Details Date Type Department Care Team (Late st Contact Info) Description 03/24/2021 Scanned Document [address] [address] Bibi Maza PA Valid Address [...] filedocumented in this encounter Care Teams Aerial Gunner Superintendent Relationship Specialty Start Date End Date Hayden Man MD [address] [place] [address] [place] [address] PCP - General Internal Medicine 05/06/20 Maggy Swartz MD [address] [place] [address] Surgery, Neurosurgery 08/20/20 documented as of this encounter
--- OUTSIDE RECORDS SUMMARY | 2025-10-01 12:34 | XMS_ITS | Clinical Summary ---
Author Organization [facility] it Address [address] [place] [address] Care Team Providers Care Bracelet Maker Novelty Name Role Phone Unavailable Primary Care Provider [...] Info) Description 11/19/2025 1:00 PM EST Appointment [facility] Xray [address] [place] [address] Health Maintenance Due Date Last [...]
--- OUTSIDE RECORDS SUMMARY | 2025-10-01 12:34 | XMS_ITS | Encounter Summary ---
Author Organization [facility] Address [address] [place] [address] Care Team Providers Care Construction Coordinator Name Role Phone Hayden Man MD Primary Care Provider [phone] Maggy Swartz MD Unavailable [phone] Encounter Details Date Type Department Care Team (Late st Contact Info) Description 12/16/2020 Scanned Document [facility] Neurosurgery [address] [place] [address] Bibi Maza PA Valid Address Needed Social [...] Date End Date Hayden Man MD [address] [place] [address] [place] [address] PCP - General Internal Medicine 05/06/20 Maggy Swartz MD [address] [place] [address] Surgery, Neurosurgery 08/20/20 documented as of this encounter
--- OUTSIDE RECORDS SUMMARY | 2025-10-01 12:34 | XMS_ITS | Encounter Summary ---
Author Organization [facility] Address [address] [place] [address] Care Team Providers Care Wood Molder Name Role Phone Hayden Man MD Primary Care Provider [phone] Maggy Swartz MD Unavailable [phone] Encounter Details Date Type Department Care Team (Late st Contact Info) Description 02/02/2021 Scanned Document [facility] Neurosurgery [place] [address] [address] Maggy Swartz MD [address] [address] Social History Tobacco Use Types Packs/Day Years [...] on filedocumented in this encounter Care Teams Wood Molder Relationship Specialty Start Date End Date Hayden Man MD [address] [place] [address] [place] [address] PCP - General Internal Medicine 05/06/20 Maggy Swartz MD [address] [place] [address] Surgery, Neurosurgery 08/20/20 documented as of this encounter
== END 2025-10-01 11:49 | disposition home or self-care (01) ==
LOC: HO.HOS 10:46
PROVIDERS: Visit Provider Orthopaedic Surgery
DX: S52.502K Unspecified fracture of the lower end of left radius, subsequent encounter for closed fracture with nonunion (principal); R29.6 Repeated falls; G89.4 Chronic pain syndrome; Z72.0 Tobacco use
CPT/HCPCS: 99213

== ENCOUNTER → 2025-10-01 10:50 | Outpatient (BNV) | payer MEDICARE, MEDICAID, SELFPAY | PROVIDERS: Visit Provider Radiology Diagnostic Radiology | DX: S52.502D Unspecified fracture of the lower end of left radius, subsequent encounter for closed fracture with routine healing (principal) | CPT/HCPCS: 73110 ==